=== PATIENT | male | born 1940 | race Caucasian/White ===

== ENCOUNTER 2016-12-09 08:00 | Emergency (ER) | payer MEDICARE, OTHER ==
[~2016-12-09] VITALS: Ht 182.9 cm; Wt 65.0 kg
[~2016-12-09 08:00] MED LIST: ALBU18HF INHALATION; AZIT250T94 PO; BENA20TA48 PO; LEVO112T42 PO; ONDA4TAB14 PO; PRED20TA PO; TRAM50TA2 PO
[2016-12-09 08:06] VITALS: Ht 182.9 cm; Wt 65.0 kg
[2016-12-09] MEDS ORDERED: ACETAMINOPHEN 325 MG TAB PO ONE (08:30)
--- NOTE | 2016-12-09 10:59 | RADRPT ---
PROCEDURE: XR Forearm. CLINICAL INDICATION: Pain. Injury. TECHNIQUE: AP and lateral views of the left forearm were obtained. COMPARISON: No prior studies are available for comparison. FINDINGS: There is normal mineralization and alignment. No fracture or osseous lesion is identified. There is some calcification in the triangulofibrocartilage. The soft tissues are unremarkable. IMPRESSION: 1. No acute fracture or subluxation identified. 2. Calcifications in the triangulofibrocartilage. This may be seen in calcium pyrophosphate deposi tion disease. RPTAT: AACC Physician Vito Date Time Electronically viewed and signed by Physician Vito on 12/09/2016 10:58 /
--- NOTE | 2016-12-09 11:11 | RADRPT ---
AMENDMENT: 12/09/2016 11:18:29 AM Gregorio Lackey M.d PROCEDURE: Left hand 1 view CLINICAL INDICATION: Pain after fall. TECHNIQUE: A single lateral view of the left hand was obtained. COMPARISON: No prior studies are available for comparison. FINDINGS: There is soft tissue swelling over the dorsum of the hand. There are 2 tiny bony ossicles dorsal to the first carpal row. Carpal alignment appears to be maintained. IMPRESSION: 1. Probable avulsion fracture of the triquetrum. RPTAT: AACC Physician Vito Date Time Electronically viewed and signed by Physician Vito on 12/09/2016 11:18 /
--- NOTE | 2016-12-09 11:16 | RADRPT ---
PROCEDURE: XR Wrist. CLINICAL INDICATION: Status post fall, pain. TECHNIQUE: Limited single AP view of the left breast was obtained. COMPARISON: Additional views from the same date. FINDINGS: There is some mild arthritic change in the radiocarpal joint and the first carpal metacarpal joint. There is calcification of the triangular fibrocartilage. There is a lucent appearing lesion in the distal ulna. IMPRESSION: 1. No acute fracture identified on this limited view. 2. Calcifications in the triangulofibrocartilage which can be seen in calcium pyrophosphate deposit ion disease. 3. 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 4. 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 RPTAT: AACC Physician Vito Date Time Electronically viewed and signed by David Lackey Physician on 12/09/2016 11:16 /
--- NOTE | 2016-12-09 12:58 | RADRPT ---
PROCEDURE: XR Chest. CLINICAL INDICATION: Trauma. Chest pain. TECHNIQUE: Single frontal view. COMPARISON: 07/10/2016. FINDINGS: The lungs are clear. The heart size is normal. There is no pleural effusion. There is no pneumothorax. IMPRESSION: 1. Normal chest radiograph. 2. No change from 07/10/2016. RPTAT: QQ .Guillermo Palafox MD, MD Date Time Electronically viewed and signed by .Guillermo Palafox MD, on 12/09/2016 12:58 .R/
[2016-12-09] MEDS ORDERED: ACET500C5 PO (13:26)
--- NOTE | 2016-12-09 13:39 | ERD ---
ER Documentation Chief Complaint Date/Time DATE: 12/09/16 TIME: 13:37 Chief Complaint Complains of a trip and fall today HPI Patient is a 76-year-old male with a past medical history of hypertension and back surgery who presents to the ED with left wrist pain after sustaining a fall. He states that he tripped over the sidewalk and landed on his hand. He denies hitting his head, passing out or losing consciousness. He denies any pain on any other areas of his body. He has not used any medication or applied any ice or heat to the area. He is able to move his wrist but it does hurt. He denies numbness or tingling. He denies fever or chills. ROS All systems reviewed and are negative except as per history of present illness. Medications Home Meds Active Scripts Acetaminophen* (Tylophen*) 500 Mg Capsule, 1 CAP PO Q6H Y for PAIN AND OR ELEVATED TEMP, #20 CAP Prov:ARNEL SCHULER PA-C 12/09/16 Azithromycin* (Zithromax*) 250 Mg Tablet, 250 MG PO .GeorgePACK DIRECTED, #6 TAB TAKE 500 MG (2 TABS) THE FIRST DAY THEN 250 MG (1 TAB) DAYS 2-5 Prov:AGUSTINA YOUNG 07/10/16 Albuterol Sulfate* (Ventolin HFA*) 18 Gm Hfa.aer.ad, 2 PUFF INHALATION Q4H, #1 INHALER Prov:AGUSTINA YOUNG 07/10/16 Prednisone* (Prednisone*) 20 Mg Tab, 40 MG PO DAILY for 4 Days, TAB Prov:AGUSTINA YOUNG 07/10/16 Ondansetron (Ondansetron Odt) 4 Mg Tab.rapdis, 4 MG PO Q6H Y for NAUSEA AND/OR VOMITING, #30 TAB Prov:ELO GUAMAN MD 07/08/16 Tramadol HCl (Tramadol HCl) 50 Mg Tablet, 50 MG PO Q6 Y for PAIN, #20 TAB Prov:ELO GUAMAN MD 07/08/16 Reported Medications Levothyroxine Sodium* (Levoxyl*) 112 Mcg Tablet, 112 MCG PO BEFORE BREAKFAST, # 30 TAB 05/20/16 Benazepril Hcl* (Benazepril Hcl*) 20 Mg Tablet, 20 MG PO DAILY, TAB 01/05/15 Allergies Allergies: Coded Allergies: codeine (Verified Allergy, Unknown, 07/08/16) PMhx/Soc History of Surgery: No Anesthesia Reaction: No Hx Neurological Disorder: No Hx Respiratory Disorders: No Hx Cardiac Disorders: Yes (HTN, HRT MURMUR) Hx Psychiatric Problems: No Hx Miscellaneous Medical Probl: No (HIGH CHOLESTEROL, BACK PAIN, THYROID ) Hx Alcohol Use: No Hx Substance Use: No Hx Tobacco Use: No FmHx Family History: No coronary disease, No diabetes, No other Physical Exam Vitals Vital Signs Date Time Temp Pulse Resp B/P Pulse Ox O2 Delivery O2 Flow Rate FiO2 12/09/16 13:41 97.3 68 20 142/76 98 Room Air 12/09/16 08:06 98.3 68 20 154/87 98 Physical Exam GENERAL: Well-developed, well-nourished male. Appears in no acute distress. HEAD: Normocephalic, atraumatic. EYES: Pupils are equally reactive bilaterally. EOMs grossly intact. No conjunctival erythema. ENT: Moist mucous membranes. No uvula deviation. No kissing tonsils. No exudates. NECK: Supple. No lymphadenopathy or thyromegaly. No meningismus. negative kernig. negative brudinski. LUNG: Clear to auscultation bilaterally. No rhonchi, wheezing, rales or coarse breath sounds. HEART: Regular rate and rhythm. No murmurs, rubs or gallops. ABDOMEN: No scars, ecchymosis or rashes noted. Soft, nontender, and nondistended. Positive bowel sounds in all four quadrants. No rebound tenderness , no guarding. (-) McBurneys point tenderness. No CVA tenderness. BACK: No midline tenderness. Extremities: Equal pulses bilaterally. No peripheral clubbing, cyanosis or edema. No unilateral leg swelling. tednerness to left wrist with mild erythema. no streaking. no stepoffs or deformities. no open wounds or lacerations. radius , ulnar and median nerve intact. no wrist drop. no snuffbox tenderness. NEUROLOGIC: Alert and oriented. Moving all four extremities. 5/5 strength in all extremities. Normal speech. unSteady gait, uses cane. SKIN: Normal color. Warm and dry. No rashes or lesions. Capillary refill < 2 seconds Results 24 hrs Laboratory Tests Test 12/09/16 11:35 Troponin I < 0.012ng/ml Current Medications Medications (Trade) Dose Ordered Sig/Harvey Route PRN Reason Start Time Stop Time Status Last Admin Dose Admin Acetaminophen (Tylenol Tab) 650 mg ONCE ONCE PO 12/09/16 08:30 12/09/16 08:31 DC 12/09/16 08:43 Tramadol HCl (Ultram) 50 mg ONCE ONCE PO 12/09/16 14:00 12/09/16 14:00 DC Procedures/MDM ER COURSE: I kept the patient and/or family informed of laboratory and diagnostic imaging results throughout the emergency room course. IMAGING STUDIES [place] [id number] Radiology Main Line: [phone] DIAGNOSTIC IMAGING REPORT Patient: JAKE CEBALLOS : 1940 Age: 76 Sex: M MR #: [id number] DOS: 12/09/16 0824 Ordering MD: ARNEL SCHULER PA-C Location: [facility] Room/Bed: AMENDMENT: 12/09/2016 11:18:29 AM Gregorio Lackey M.d PROCEDURE: Left hand 1 view CLINICAL INDICATION: Pain after fall. TECHNIQUE: A single lateral view of the left hand was obtained. COMPARISON: No prior studies are available for comparison. FINDINGS: There is soft tissue swelling over the dorsum of the hand. There are 2 tiny bony ossicles dorsal to the first carpal row. Carpal alignment appears to be maintained. IMPRESSION: 1. Probable avulsion fracture of the triquetrum. RPTAT: AACC Physician Vito Date Time Electronically viewed and signed by Physician Vito on 12/09/2016 11: 18 JH/ CC: ARNEL SCHULER PA-C MEDICATIONS Tylenol. Tolerated well with no adverse reaction. PROCEDURES Splint Assessment: Neurovascularly intact post splint placement with good fit. MEDICAL DECISION MAKING: This is a 76-year-old male who presents with left wrist pain vital signs were reviewed. Patient is afebrile. Patient is not hypoxic. Patient is not toxic or ill-appearing. His x-rays of by radiologist shows a probable avulsion fracture of the triquetrum. I gave patient results and he stated that he started to have chest pain in the waiting room with shortness of breath and palpitations. I consulted with Dr. yuen regarding this patient. A chest x-ray, EKG and troponin was ordered. EKG performed, read by Dr. yuen 58]bpm, normal sinus rhythm, normal axis, no acute ST segment. changes, no T wave inversion. Low suspicion for ACS, PE, AAA, dissection, DVT, heart failure. I have low suspicion for cardiac emergency. Low suspicion for pneumonia, PE, pneumothorax , ACS, epiglottitis, obstruction, TB, pertussis, meningitis, sepsis. Low suspicion for dislocation, fracture, septic joint, compartment syndrome, osteomyelitis, cellulitis, avascular necrosis, neurological injury, vascular injury, tendon laceration. DISCHARGE: At this time, patient is stable for discharge and outpatient management with no new complaints during the ER course. Patient was sent home with Tylenol and to follow-up with orthopedics.. Patient will be discharged home with instructions to recheck for new or worsening symptoms such as fever, nausea, weakness, LOC and to follow up with primary care in the next 1-2 days. Patient was advised to return to the ER for any new or worsening symptoms. Plan was discussed and patient and/or family understands and agrees. Home instructions were given. Departure Diagnosis: Primary Impression: Wrist injury Encounter type: initial encounter Laterality: left Qualified Code: S69.92XA - Wrist injury, left, initial encounter Condition: Stable Patient Instructions: Wrist Sprain Referrals: [facility] Urgent Care 7 a.m.- 11 p.m. Every Day of the Week NO APPOINTMENT OR AUTHORIZATION NEEDED [facility] Hours: Mon-Fri 9:00 AM - 5:00 PM Additional Instructions: Call your primary care doctor TOMORROW for an appointment during the next 1-2 days.See the doctor sooner or return here if your condition worsens before your appointment time. ARNEL SCHULER PA-C December 09, 2016 13:39
[2016-12-09 13:41] VITALS: BP 142/76; PULSE 68; RESP 20; TEMP 97.3
[2016-12-09] MEDS ORDERED: traMADol 50 MG TAB PO ONE (14:00)
== END 2016-12-09 13:40 | disposition home or self-care (01) ==
LOC: FTE 08:00
DX: S69.92XA Unspecified injury of left wrist, hand and finger(s), initial encounter (principal); I10 Essential (primary) hypertension; W01.0XXA Fall on same level from slipping, tripping and stumbling without subsequent striking against object, initial encounter; Y92.480 Sidewalk as the place of occurrence of the external cause
CPT/HCPCS: 71010; 73090; 84484; 93005

== ENCOUNTER 2017-02-14 11:44 | Inpatient (IN) | payer MEDICARE, OTHER ==
[2017-02-14] VITALS (31 sets, daily range): BP systolic 75–100; BP diastolic 64–84; PULSE 57–70; RESP 16–25; TEMP 89.7; BMI 21.5
[~2017-02-14] VITALS: Ht 180.3 cm; Wt 82.0 kg
[~2017-02-14 11:44] MED LIST changes: +ACET500C5 PO; +AMIODARONE 150 MG INJ ONE; +AMIODARONE 900 MG INJ ONE; +EPINEPHrine 0.1 MG/ML SYG ONE; +MAGNESIUM SULFATE 1 GM/100 ML D5W IVPB ONE; +NA BICARBONATE 8.4% 50 ML SYG ONE
[2017-02-14] MEDS ORDERED: NALOXONE 2 MG SYG ONE (11:45)
[2017-02-14] MEDS ORDERED: CEFEPIME 2GM/50 ML (PMX) 50 ML IVPB STA (12:03)
[2017-02-14] MEDS ORDERED: VECURONIUM 100 MG in DEXTROSE 5% 100 ML IV ONE (12:03)
[2017-02-14] MEDS ORDERED: SODIUM CHLORIDE 0.9% 500 ML BAG IV* STA (12:03)
[2017-02-14] MEDS ORDERED: SODIUM CHLORIDE 0.9% 1L BAG IV* STA (12:03)
[2017-02-14] MEDS ORDERED: BENA20TA48 PO (12:14)
[2017-02-14] MEDS ORDERED: GABA100C14 PO (12:15)
[2017-02-14] MEDS ORDERED: SYN112 PO (12:15)
[2017-02-14] MEDS ORDERED: ALBU8.5H3 INH (12:16)
[2017-02-14] MEDS ORDERED: AMIODARONE 900MG/D5W DRIP 500 ML IV STA ×2 (12:22→13:50)
[2017-02-14] MEDS ORDERED: MIDAZOLAM (DRIP) 50 mg/50 mL 50 ML IV SCH (12:30)
[2017-02-14] MEDS ORDERED: FENTAnyl 50 MCG/ML VIAL IV PRN (12:30)
[2017-02-14] MEDS ORDERED: VANCOMYCIN 1 GM (PMX) 250 ML IVPB ONE (12:30)
[2017-02-14 12:32] LABS: ADD SCAN DIFF NO
[2017-02-14 12:35] LABS: ABNORMAL IP MESSAGE 1; HEMATOCRIT 30.4 % (42.0-52.0); HEMOGLOBIN 9.8 g/dl (14.0-18.0); MEAN CORPUSCULAR HGB CONC 32.2 g/dl (32.0-37.0); MEAN CORPUSCULAR VOLUME 105.6 fl (82.0-101.0); MEAN PLATELET VOLUME 10.4 fl (7.4-10.4); PLATELET COUNT 82 10^3/UL (140-415); RED BLOOD COUNT 2.88 10^6/ul (4.70-6.10); RED CELL DISTRIBUTION WIDTH 14.1 % (11.5-14.5); WHITE BLOOD COUNT 4.4 10^3/ul (4.8-10.8)
--- NOTE | 2017-02-14 12:42 | RADRPT ---
PROCEDURE: XR Chest. CLINICAL INDICATION: Status post intubation TECHNIQUE: Single portable view of the chest was obtained COMPARISON: 12/09/16 FINDINGS: There is a new endotracheal tube 8.2 cm above the agustín. There is mild cardiomegaly. There are bilateral upper lobe infiltrates. There is no pleural effusion. RPTAT: AA IMPRESSION: New endotracheal tube in appropriate position. Small left-sided pneumothorax. Bilateral upper lobe infiltrates. A call report was made and the findings discussed with Willis Hartman at 02/14/2017 12:40:18 PM . .Yaya Altamirano MD, MD Date Time Electronically viewed and signed by .Yaya Altamirano MD, MD on 02/14/2017 12:42 .S/
[2017-02-14 12:53] LABS: AADO2 Arterial 610.8 mmHg (7.0-24.0); Arterial Base Excess -14.9 mmol/L (-3.0-3); Arterial COHb 0.4 % (0.0-3.0); Arterial Fraction of Oxyhgb 84.4 % (93.0-99.0); Arterial HCO3 13.1 mmol/L (22.0-26.0); Arterial MetHb 0.3 % (0.0-1.5); Arterial Total Hemglobin 11.6 g/dl (12.0-18.0); MODE VENT - AC
[2017-02-14 12:55] LABS: ALBUMIN 2.9 g/dl (3.3-4.9); ALBUMIN/GLOBULIN RATIO 1.45; CALCIUM 9.2 mg/dl (8.4-10.2); CREATININE 1.25 mg/dl (0.61-1.24); MAGNESIUM 2.5 mg/dl (1.7-2.5); PHOSPHORUS 7.4 mg/dl (2.5-4.9); POTASSIUM 3.9 mmol/L (3.5-5.1); TOTAL PROTEIN 4.9 g/dl (6.1-8.1)
[2017-02-14 13:03] LABS: INR 1.37; PROTIME 16.9 Sec (12.2-14.2); PT RATIO 1.3
[2017-02-14 13:04] LABS: PARTIAL THROMBOPLASTIN TIME 42.7 Sec (25.0-35.0)
[2017-02-14 13:16] LABS: TROPONIN-I 0.143 ng/ml (0.00-0.12)
[2017-02-14 13:25] LABS: BASOPHIL # 0.1 10^3/ul (0.0-0.1); EOSINOPHILS # 0.1 10^3/ul (0.0-0.5); MONOCYTE # 0.3 10^3/ul (0.3-0.9); NEUTROPHIL # 0.6 10^3/ul (1.6-7.5)
--- NOTE | 2017-02-14 13:57 | RADRPT ---
PROCEDURE: XR Chest. CLINICAL INDICATION: 76-year-old male, status post left-sided thoracostomy tube placement. TECHNIQUE: Single frontal view of the chest was obtained. COMPARISON: Chest x-ray 02/14/2017 at 12:22 p.m. FINDINGS: There is subcutaneous emphysema along the left chest wall following placement of 3 thoracostomy tube s. There are degenerative osteophytes in the thoracic spine. Endotracheal tube is well positioned near T2-T3. The heart is enlarged. The cardiomediastinal silhouette and hilar structures are kamla l. The pulmonary vasculature is equilibrated. There is a left-sided aorta. There are bilateral jose hilar infiltrates extending toward the periphery of the lungs. There is a small right pleural effus ion. IMPRESSION: 1. Cardiomegaly with bilateral pulmonary edema which has worsened when compared to the 02/14/2017 at 12:22 p.m. these findings may be the result of CHF. 2. Cardiomegaly with a small right pleural effusion. 3. 3 thoracostomy tubes are in place with a persistent, stable 10-15% left apical pneumothorax with subcutaneous emphysema noted along the left lateral chest wall and in the left axilla. 4. Spondylosis of the thoracic spine. 5. Satisfactory positioning of an endotracheal tube near T3-4. 6. The stomach is markedly distended with air. Consider placement of an NG tube. RPTAT:AAJJ Physician Tristan Date Time Electronically viewed and signed by Physician Tristan on 02/14/2017 13:57 HENOK/
--- NOTE | 2017-02-14 14:25 | ERA ---
ER Documentation Chief Complaint Date/Time DATE: 02/14/17 TIME: 14:16 Chief Complaint ARRIVED IN [facility] FROM FIELD S/P FULL AREST. NO TRAUMA HPI 76-year-old male brought in for cardiac arrest. Unwitnessed arrest, PA in the field. 2 rounds of epinephrine per EMS. The patient was not intubated. Remainder of HPI is very limited. There is no family available. The patient is critical. ROS Cardiac arrest, critical patient Medications Home Meds Reported Medications Albuterol Sulfate* (Proair HFA*) 8.5 Gm Hfa.aer.ad, 2 PUFF INH Q4H Y for WHEEZING AND SOB, #1 INHALER 02/14/17 Gabapentin* (Gabapentin*) 100 Mg Capsule, 100 MG PO TID, #90 CAP 02/14/17 Levothyroxine Sodium* (Levothyroxine Sodium*) 112 Mcg Tablet, 112 MCG PO BEFORE BREAKFAST, #30 TAB 02/14/17 Benazepril Hcl* (Benazepril Hcl*) 20 Mg Tablet, 20 MG PO DAILY, #30 TAB 02/14/17 Discontinued Reported Medications Levothyroxine Sodium* (Levoxyl*) 112 Mcg Tablet, 112 MCG PO BEFORE BREAKFAST, # 30 TAB 05/20/16 Benazepril Hcl* (Benazepril Hcl*) 20 Mg Tablet, 20 MG PO DAILY, TAB 01/05/15 Discontinued Scripts Acetaminophen* (Tylophen*) 500 Mg Capsule, 1 CAP PO Q6H Y for PAIN AND OR ELEVATED TEMP, #20 CAP Prov:ARNEL SCHULER PADeny 12/09/16 Azithromycin* (Zithromax*) 250 Mg Tablet, 250 MG PO .ALEXUS DIRECTED, #6 TAB TAKE 500 MG (2 TABS) THE FIRST DAY THEN 250 MG (1 TAB) DAYS 2-5 Prov:AGUSTINA YOUNG 07/10/16 Albuterol Sulfate* (Ventolin HFA*) 18 Gm Hfa.aer.ad, 2 PUFF INHALATION Q4H, #1 INHALER Prov:AGUSTINA YOUNG 07/10/16 Prednisone* (Prednisone*) 20 Mg Tab, 40 MG PO DAILY for 4 Days, TAB Prov:AGUSTINA YOUNG 07/10/16 Ondansetron (Ondansetron Odt) 4 Mg Tab.rapdis, 4 MG PO Q6H Y for NAUSEA AND/OR VOMITING, #30 TAB Prov:ELO GUAMAN MD 07/08/16 Tramadol HCl (Tramadol HCl) 50 Mg Tablet, 50 MG PO Q6 Y for PAIN, #20 TAB Prov:ELO GUAMAN MD 07/08/16 Allergies Allergies: Coded Allergies: codeine (Verified Allergy, Unknown, 02/14/17) PMhx/Soc History of Surgery: No Anesthesia Reaction: No Hx Neurological Disorder: No Hx Respiratory Disorders: No Hx Cardiac Disorders: Yes (HTN, HRT MURMUR) Hx Psychiatric Problems: No Hx Miscellaneous Medical Probl: No (HIGH CHOLESTEROL, BACK PAIN, THYROID ) Hx Alcohol Use: No (UTD) Hx Substance Use: No (UTD) Hx Tobacco Use: No (UTD) Smoking Status: Unknown if ever smoked FmHx Cardiac arrest, critical patient Physical Exam Vitals Vital Signs Date Time Temp Pulse Resp B/P Pulse Ox O2 Delivery O2 Flow Rate FiO2 02/14/17 15:45 90.2 66 16 91/76 90 Mechanical Ventilator 02/14/17 15:25 90.2 66 16 91/76 90 Mechanical Ventilator 02/14/17 15:00 92.8 71 16 91/80 98 Mechanical Ventilator 02/14/17 14:45 93.0 72 16 99/74 98 Mechanical Ventilator 02/14/17 14:30 93.0 72 16 99/74 02/14/17 14:15 97.0 75 16 110/81 98 Mechanical Ventilator 02/14/17 12:55 97.8 77 16 108/74 98 Mechanical Ventilator 02/14/17 12:40 97.8 74 16 108/76 98 Mechanical Ventilator 02/14/17 12:35 97.8 88 16 110/78 98 Mechanical Ventilator 02/14/17 12:20 97.8 68 16 118/74 98 Mechanical Ventilator 02/14/17 12:05 97.8 71 16 120/79 98 Mechanical Ventilator 02/14/17 11:45 101 22 92 100 Physical Exam General: Unresponsive Head: Normocephalic, atraumatic Eyes: Fixed and dilated pupils ENT: Moist mucous membranes Neck: Supple, no lymphadenopathy Respiratory: No spontaneous respiratory activity Cardiovascular: No spontaneous cardiac activity Abdominal: Soft, non-protuberant, no pulsatile mass : Deferred MSK: No spontaneous motor activity Neurologic: No spontaneous neurologic activity Skin: No evidence of trauma Result Diagram: 02/14/17 1210 02/14/17 1210 Results 24 hrs Laboratory Tests Test 02/14/17 12:03 02/14/17 12:10 02/14/17 13:56 02/14/17 14:35 Blood Gas Specimen Source Blood arterial Arterial Blood Date Drawn 02/14/2017 12:45:43 PM Arterial Blood pH (Temp corrected) 7.149 Arterial Blood pCO2 (Temp correct) 38.7mmhg Arterial Blood pO2 (Temp corrected) 63.5mmHG Arterial Blood HCO3 13.1mmol/L Arterial Blood Base Excess -14.9mmol/L Arterial Blood Oxygen Saturation 85.0mmHG Chris Test N/A Arterial Blood Gas Puncture Site Right Brachial Arterial Blood Carboxyhemoglobin 0.4% Arterial Blood Methemoglobin 0.3% Blood Gas A-a O2 Differential 610.8mmHg Oxyhemoglobin Percent 84.4% Total Hemoglobin 11.6g/dl Blood Gas Temperature 37.0C Blood Gas Respiration Rate 16.0 Blood Gas Actual Respiration Rate 20 Blood Gas Modality VENT - AC FiO2 100.0% Blood Gas Inspiratory Time 0.90 Blood Gas Tidal Volume 450.0mL Blood Gas Low PEEP Setting 5.0cmH2O Blood Gas Critical Value Read Back MD FERNY Blood Gas Notified Whom [place] Blood Gas Notified Time 02/14/2017 12:53:06 PM White Blood Count 4.410^3/ul Red Blood Count 2.8810^6/ul Hemoglobin 9.8g/dl Hematocrit 30.4% Mean Corpuscular Volume 105.6fl Mean Corpuscular Hemoglobin 34.0pg Mean Corpuscular Hemoglobin Concent 32.2g/dl Red Cell Distribution Width 14.1% Platelet Count 8210^3/UL Mean Platelet Volume 10.4fl Neutrophils % 14.0% Band Neutrophils % 6.0% Lymphocytes % 69.0% Monocytes % 6.0% Eosinophils % 3.0% Basophils % 2.0% Neutrophils # 0.610^3/ul Lymphocytes # 3.010^3/ul Monocytes # 0.310^3/ul Eosinophils # 0.110^3/ul Basophils # 0.110^3/ul Prothrombin Time 16.9Sec Prothrombin Time Ratio 1.3 INR International Normalized Ratio 1.37 Activated Partial Thromboplast Time 42.7Sec Sodium Level 131mmol/L Potassium Level 3.9mmol/L Chloride Level 108mmol/L Carbon Dioxide Level 15mmol/L Anion Gap 12 Blood Urea Nitrogen 28mg/dl Creatinine 1.25mg/dl Glucose Level 241mg/dl Lactic Acid Level 10.3mmol/L 5.6mmol/L Calcium Level 9.2mg/dl Phosphorus Level 7.4mg/dl Magnesium Level 2.5mg/dl Total Bilirubin 0.0mg/dl Direct Bilirubin 0.00mg/dl Indirect Bilirubin 0.0mg/dl Aspartate Amino Transf (AST/SGOT) 495IU/L Alanine Aminotransferase (ALT/SGPT) 418IU/L Alkaline Phosphatase 51IU/L Troponin I 0.143ng/ml Total Protein 4.9g/dl Albumin 2.9g/dl Globulin 2.00g/dl Albumin/Globulin Ratio 1.45 Lipase 131U/L Bedside Glucose 289mg/dL Urine Color SASKIA Urine Clarity TURBID Urine pH 9.0 Urine Specific [place] 1.009 Urine Ketones NEGATIVEmg/dL Urine Nitrite POSITIVEmg/dL Urine Bilirubin NEGATIVEmg/dL Urine Urobilinogen NEGATIVEmg/dL Urine Leukocyte Esterase 2+Tanner/ul Urine Microscopic RBC 6/HPF Urine Microscopic WBC 26/HPF Urine Squamous Epithelial Cells FEW/HPF Urine Amorphous Crystals FEW/HPF Urine Bacteria FEW/HPF Urine Hyaline Casts FEW/HPF Urine Mucus FEW/HPF Urine Hemoglobin 2+mg/dL Urine Glucose 3+mg/dL Urine Total Protein 2+mg/dl Current Medications Medications (Trade) Dose Ordered Sig/[place] PRN Reason Start Time Stop Time Status Last Admin Dose Admin Sodium Chloride 2170 ml 2,170 ml BOLUS OVER 2 HOURS STAT IV* 02/14/17 12:03 02/14/17 12:07 DC 02/14/17 12:03 Cefepime HCl 50 ml @ 100 mls/hr ONCE STAT IVPB 02/14/17 12:03 02/14/17 12:32 DC 02/14/17 13:52 Vancomycin HCl (Vancocin) 250 ml @ 125 mls/hr ONCE ONCE IVPB 02/14/17 12:30 02/14/17 14:29 DC Sodium Chloride (NS) 500 ml ONCE STAT IV* 02/14/17 12:03 02/14/17 12:07 DC 02/14/17 12:03 Fentanyl 25 mcg 25 mcg Q10M PRN IV SEDATION 02/14/17 12:30 Midazolam HCl 50 ml @ 2 mls/hr ONCE IV 02/14/17 12:30 02/14/17 13:52 Vecuronium [place] 100 mg/ Dextrose 100 ml @ 0 mls/hr Q0M ONCE IV 02/14/17 12:03 02/14/17 12:07 DC 02/14/17 12:03 Amiodarone HCl 500 ml @ 0 mls/hr ONCE STAT IV 02/14/17 12:22 02/14/17 12:25 DC Amiodarone HCl (Cordarone 900mg/ D5W Drip) 500 ml @ 0 mls/hr ONCE STAT IV 02/14/17 13:50 02/14/17 13:51 DC 02/14/17 15:21 Naloxone HCl 2 mg 2 mg STK-MED ONCE .ROUTE 02/14/17 11:45 02/14/17 14:54 DC Insulin Human Regular/Sodium Chloride (Novolin-R/NS) 100 ml @ 0 mls/hr ONCE STAT IV 02/14/17 15:31 02/14/17 15:32 DC Procedures/MDM EKG, MONITORS, & DIAGNOSTIC IMAGING: EKG: I reviewed and interpreted a 12-lead EKG. Rhythm: Junctional, irregular, wide complex Ectopy: None Intervals: Wide-complex ST segments: Subtle ST elevation in lead aVR, no reciprocal changes T waves: No contiguous inversions Chest x-ray #1 Chest x-ray: I reviewed and interpreted a 1 view of the chest Mediastinum: No enlargement Cardiac silhouette: No cardiomegaly Airspace: Left-sided pneumothorax, ET tube in good position, interstitial process bilaterally Bones: No evidence of fracture Chest x-ray #2 Chest x-ray: I reviewed and interpreted a 1 view of the chest Mediastinum: No enlargement Cardiac silhouette: No cardiomegaly Airspace: Persistent left-sided pneumothorax, worsening interstitial process, chest tube in good position Bones: No evidence of fracture CT brain: IMPRESSION: 1. No intracranial hemorrhage, mass effect or midline shift. 2. Mild generalized atrophy. Mild microangiopathic ischemic change. 3. Stable appearance of the chronic right MCA distribution infarct. 4. Intracranial atherosclerosis. 5. NG tube coils in the nasopharynx. RPTAT: BB CT chest: IMPRESSION: 1. Extensive dense consolidations involving the near and prior lower lobes and posterior aspect of the upper lobes concerning for aspiration/pneumonia. 2. Patchy diffuse ground-glass opacities in the aerated upper lungs which could represent infection, pulmonary edema or pulmonary hemorrhage. 3. Multiple mildly displaced left-sided anterolateral rib fractures 2nd through 6th ribs. 4. Trace left apical pneumothorax. Surgical chest tube extends along the major fissure with tip directed posteriorly. The most superior aspect of the chest tube might be intraparenchymal. No significant pleural effusion is identified; however hemothorax adjacent to dense lung consolidation is difficult to exclude. Correlate with chest tube output. 5. Mild stranding and soft tissue density in the anterior mediastinum which could represent a small mediastinal hematoma in the setting of trauma. 6. Small perihepatic fluid. RPTAT: BB PROCEDURES: Intubation Note: Indication: Airway protection Consent: This was an emergent situation, implied consent was observed RSI Medications: Not required Tube size: 7.5 Secured at: 24 at the lip Procedure: Endotracheal intubation was performed. The patient was preoxygenated with supplemental oxygen, the room was set up with emergent airway equipment including [id number], suction, adjunct airways. Direct visualization of the cords was performed with direct laryngoscopy using a 4.0 Mac blade, insertion of the endotracheal tube through the cords was visualized by the chip crusher operator. Bilateral breath sounds were auscultated, color change was observed. The tube was then secured in a postintubation chest x-ray was ordered. The patient tolerated the procedure well there were no complications. Central Line Note: Consent: Critical patient Indication: Critically ill patient requiring specialized vascular access for fluid or pressor management Location: Right femoral line Procedure: Sterile procedure was observed throughout insertion of the central line. The insertion site was prepped with sterile solution. Ultrasound-guided identification of the vein was performed. Insertion of a needle into the vein was obtained with return of dark, nonpulsatile blood. The wire was then threaded through the needle without complication. The wire was then identified within the vein using ultrasound. A small skin incision was made, the needle was removed intact, dilation of the vein was performed and insertion of a triple lumen catheter was completed. The catheter was then sutured to the skin. All 3 ports dwight back and flushed without difficulty. A sterile dressing was applied. The patient tolerated the procedure well there were no complications. Emergency Bedside Ultrasound: The patient was verbally consented prior to procedure and understands the risks , benefits, and alternatives. The patient is agreeable to procedure and has given verbal consent. Indication: Central line Probe Type: Linear Findings: Dynamic ultrasound utilizing compressive technique with both linear and horizontal views, additional images showing wire within the venous system were obtained. Chest Tube Placement by me: Patient consented, sterilely draped, full prep, gown, glove, mask, time out performed. Location: Mid-Anterior Axillary Line, approximate 5th intercostal, left Device: 29 wallisian chest tube Technique: Vertical incision, blunt dissection above the superior rib border , tactile confirmation Results: Chest tube fogging Secured with suture and taping. No complications. Attached to waterseal. Emergency Bedside Ultrasound: Indication: Cardiac arrest Probe Type: Cardiac probe Findings: Limited cardiac contractility, quivering of the valves, no effusion LAB INTERPRETATION: Lactic acidosis, acute renal insufficiency, troponin elevation MEDICAL DECISION MAKING: The patient presents status post cardiac arrest. Please see nursing documentation for full a rest course. Unclear inciting event. ER COURSE: Upon arrival the patient required intubation. ACLS was directed by myself. The patient had multiple rounds of medications including epinephrine, calcium, bicarb, magnesium, amiodarone, Narcan. After excessive attempts at resuscitation the patient finally had return of spontaneous circulation with agonal respirations. The patient was placed on the ventilator. His laboratory testing suggests significant lactic acidosis with prolonged downtime. The patient also received 5 defibrillations at 200 J. I discussed the case with on-call business risk consultant Dr. Fagan. We reviewed the case as well as a prolonged downtime, V. fib, PA cardiac arrest. Given that the patient had multiple unfavorable factors including age, duration of downtime, no bystander CPR patient is not an excellent candidate for Lay Out And Detail Drafter activation. Dr. Angelo does not recommend Lay Out And Detail Drafter activation at this time. I believe it is reasonable given the patient's unfavorable outcome and likely mortality. The patient has evidence of a pneumothorax likely secondary to chest compressions. No evidence of tension physiology. A left-sided chest tube was placed. The patient does not have resolution of pneumothorax however chest tube appears to be in good position, no water leak, continue to monitor. Saturations hovering in the 85% range which is consistent with the patient's pulmonary edema versus pulmonary contusion secondary to chest compressions. No evidence of infection currently, empiric antibiotic provided. 30 cc/kg of saline provided. CT brain and CT chest ordered, pending at this time. CT chest as above, Chest tube pulled back 1 cm given "possible intraparenchymal placement" however, there is good movement of fluid with breathing in the tube making this unlikely. Hypothermia protocol initiated. There is no family available, a program schedule clerk who states that he knows the patient has come to the emergency room. He states that the patient is a transient. No further information is provided. DISPOSITION PLAN: ICU CONSULTATION: Accepting care team and consultations: I discussed the current laboratory data, diagnostic imaging and emergency care provided. Admitting team: Dr. Luna Admitting team indication: Insurance directed Critical Care Note: Total time: 58 minutes Indication/Organ System Threat: Cardiac arrest with return of spontaneous circulation I spent the above amount of critical care time with the patient, not including billable procedures. This included chart review, consultations, repeat bedside evaluations, and titration of appropriate medications to prevent cardiopulmonary or respiratory collapse. Departure Diagnosis: Primary Impression: Cardiac arrest Additional Impressions: Signs of return of spontaneous circulation Lactic acidosis Non-ST elevation myocardial infarction (NSTEMI) Acute renal insufficiency Condition: Critical SERGE MATT MD Feb 14, 2017 14:25
[2017-02-14 15:22] LABS: ADD UMIC YES; UR AMORPHOUS CRYSTAL FEW /HPF (NONE SEEN); UR ASCORBIC ACID NEGATIVE (NEGATIVE); UR BACTERIA FEW /HPF (NONE SEEN); UR BILIRUBIN (Dip) NEGATIVE (NEGATIVE); UR BLOOD (Dip) 2+ mg/dL (NEGATIVE); UR CLARITY TURBID (CLEAR); UR COLOR AMBER (YELLOW); UR GLUCOSE (Dip) 3+ mg/dL (NEGATIVE); UR KETONES (Dip) NEGATIVE (NEGATIVE); UR LEUKOCYTE ESTERASE (Dip) 2+ Leu/ul (NEGATIVE); UR MUCUS FEW /HPF (NONE SEEN); UR NITRITE (Dip) POSITIVE (NEGATIVE); UR RBC 6 /HPF (0-5); UR SPECIFIC GRAVITY (Dip) 1.009 (1.003-1.030); UR SQUAMOUS EPITHELIAL CELL FEW /HPF (FEW); UR TOTAL PROTEIN (Dip) 2+ mg/dl (NEGATIVE); UR UROBILINOGEN (Dip) NEGATIVE (NEGATIVE)
--- NOTE | 2017-02-14 15:28 | RADRPT ---
PROCEDURE: CT Brain without contrast. CLINICAL INDICATION: Hypothermia. Altered mental status. TECHNIQUE: A CT of the brain was performed on a multidetector CT scanner utilizing axial sections from the skull base through the vertex without contrast. Images were reviewed on a high-resolution [employer] workstation. Exam CTDI = 43.27 mGy and the DLP = 720.23 mGy-cm. One or more of the following dose reduction techniques were used: Automated exposure control Adjustment of the mA and/or kV according to patient size. Use of iterative reconstruction technique. COMPARISON: CT head 07/08/2016 FINDINGS: Mild diffuse cerebral and cerebellar atrophy is present. There is proportionate dilatation of the v entricular system and sulci in a symmetric fashion. There is prominence of the extraaxial spaces sec ondary to atrophy. There is no evidence of intracranial hemorrhage, mass effect or midline shift. Th ere is chronic infarct in the right anterior distribution within the right temporal lobe involving t he posterior insular cortex , external capsule and inferior right parietal lobe. No abnormal intra-a xial or extra-axial fluid collections are seen. The density of the brain is normal and the zaidi/whi te matter differentiation is well preserved. Mild patchy diffuse deep white matter microangiopathic ischemic change is seen. The osseous structures are unremarkable. Paranasal sinuses are clear. Vascular calcifications are identified. There is an NG tube coiling in the nasopharynx. IMPRESSION: 1. No intracranial hemorrhage, mass effect or midline shift. 2. Mild generalized atrophy. Mild microangiopathic ischemic change. 3. Stable appearance of the chronic right MCA distribution infarct. 4. Intracranial atherosclerosis. 5. NG tube coils in the nasopharynx. RPTAT: BB .Dilma Maldonado MD, Date Time Electronically viewed and signed by .Dilma Maldonado MD, on 02/14/2017 15:28 .O/
[2017-02-14] MEDS ORDERED: INSULIN HUMAN REGULAR 100 UNIT in SOD CHLORIDE 0.9% 99 ML IV STA (15:31)
--- NOTE | 2017-02-14 15:42 | RADRPT ---
PROCEDURE: CT Chest without contrast. CLINICAL INDICATION: Hypoxia, hypothermia. TECHNIQUE: CT scan of the chest without contrast was performed on a multidetector high-resolution CT scanner. Coronal and sagittal reformatted images were obtained from the axial source images. The total exam CTDI equals 9.36 mGy and the total exam DLP equals 391.58 mGy-cm. One or more of the following dose reduction techniques were used: Automated exposure control. Adjustment of the mA and/or kV according to patient size. Use of iterative reconstruction technique. COMPARISON: Chest x-ray 02/14/2017 FINDINGS: ET tube is in satisfactory position terminating approximately 4.3 cm above the agustín. Dense consol idations are seen involving the near-complete bilateral lower lobes and posterior aspects of bilater al upper lobes. Diffuse ground-glass opacities are identified in the residual aerated upper lungs. There is minimal left apical pneumothorax. Surgical chest tube is in place along the fissure with ti p directed posteriorly. There are multiple displaced anterior and lateral left-sided rib fractures i nvolving the second through 6th ribs. There is a nondisplaced posterior fracture of the left first r ib. There is mild subcutaneous emphysema along the anterior and lateral left lateral chest wall. The lungs are clear. No focal opacification, effusion, pneumothorax, edema, or nodules are seen. There is no pulmonary infiltrate. No mass lesion to suggest neoplasm is identified. The central tr acheobronchial tree is clear. The mediastinum is unremarkable without evidence for mass or lymphadenopathy. There is mild ectasia of the ascending aorta measures up to 4.3 cm. There is mild soft tissue density in the anterior med iastinum. Aortic vascular calcifications and coronary artery calcifications are present. The heart size is normal without evidence for pericardial thickening or effusion. The axillary regions, subpectoral regions, and supraclavicular regions are all unremarkable. Imagin g obtained through the upper abdomen reveals small perihepatic fluid. The surrounding osseous struct ures are remarkable for degenerative spondylosis of the spine. No osteolytic or osteoblastic lesion is detected. IMPRESSION: 1. Extensive dense consolidations involving the near and prior lower lobes and posterior aspect of the upper lobes concerning for aspiration/pneumonia. 2. Patchy diffuse ground-glass opacities in the aerated upper lungs which could represent infection , pulmonary edema or pulmonary hemorrhage. 3. Multiple mildly displaced left-sided anterolateral rib fractures 2nd through 6th ribs. 4. Trace left apical pneumothorax. Surgical chest tube extends along the major fissure with tip di rected posteriorly. The most superior aspect of the chest tube might be intraparenchymal. No signi ficant pleural effusion is identified; however hemothorax adjacent to dense lung consolidation is di fficult to exclude. Correlate with chest tube output. 5. Mild stranding and soft tissue density in the anterior mediastinum which could represent a small mediastinal hematoma in the setting of trauma. 6. Small perihepatic fluid. RPTAT: BB .Dilma Maldonado MD, Date Time Electronically viewed and signed by .Dilma Maldonado MD, on 02/14/2017 15:42 .O/
[2017-02-14] MEDS ORDERED: SOD CHLORIDE 0.9% 1,000 ML IV SCH (15:57)
[2017-02-14] MEDS ORDERED: NACL 0.9% 3 ML SYG IV SCH (16:00)
[2017-02-14] MEDS ORDERED: ONDANSETRON 4 MG INJ IV PRN (16:00)
--- NOTE | 2017-02-14 16:33 | HP ---
Date/Time of Note Date/Time of Note DATE: 02/14/17 TIME: 16:19 Assessment/Plan VTE Prophylaxis VTE Prophylaxis Intervention: SCD's Assessment/Plan Chief Complaint/Hosp Course 1. Cardiac arrest secondary to V-fib status post ACLS with defibrillation and return of circulation Patient is status post intubation in the ER Chest tube placed for pneumothorax caused by repeated chest compressions Cardiology consultation, patient does not meet criteria for emergent cardiac catheterization per sinter press operator on-call 2. Acute respiratory distress secondary to cardiac arrest Continue vent management Pulmonology consultation 3. 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 Pancytopenia cause unknown at this time Check for HIV 6. Acute kidney disease secondary to cardiac arrest IV fluid 7. Hyperglycemia-possibly reactive Check an A1c 8. Hyponatremia likely secondary to dehydration IV fluids with normal saline Prophylaxis: SCDs Problems: HPI/ROS Admit Date/Time Admit Date/Time February 14, 2017 Hx of Present Illness Patient is a 76-year-old male with history of homelessness, back pain, hypertension and dyslipidemia. Patient was found by paramedics on the ground next to a park bench, patient was reportedly unresponsive and was in PEA but on arrival in the ED patient was in V. fib. ACLS was performed and patient ultimately had return of circulation after several attempts of defibrillation. Patient did suffer a pneumothorax and had a chest tube placed, patient was also intubated in the ER. Hypothermia protocol was initiated, on-call maintenance and repair worker was spoken to and patient did not meet criteria for emergent cardiac catheterization. Patient is currently unresponsive at this time and unable to provide any history. ROS Subjective hx not possible: pt non-verbal, pt critical status PMH/Family/Social Past Medical History Back pain, dyslipidemia and hypertension Past Surgical History Unknown Family History Significant Family History: other (Unknown) Social History Homeless otherwise unknown Smoking Status: Unknown if ever smoked Exam/Review of Systems Vital Signs Vitals Vital Signs Date Time Temp Pulse Resp B/P Pulse Ox O2 Delivery O2 Flow Rate FiO2 02/14/17 15:45 90.2 66 16 91/76 90 Mechanical Ventilator 02/14/17 15:18 100 Exam Constitutional: non-verbal, No alert Head: normocephalic Respiratory: clear to auscultation, other (Chest tube in place) Cardiovascular: regular rate and rhythm Gastrointestinal: soft, No distended Musculoskeletal: nl extremities to inspection Labs Result Diagram: 02/14/17 1210 02/14/17 1210 Medications Medications Current Medications Fentanyl 25 mcg 25 mcg Q10M PRN IV SEDATION; Start 02/14/17 at 12:30 Midazolam HCl 50 ml @ 2 mls/hr ONCE IV Last administered on 02/14/17t 13:52; Admin Dose 2 MLS/HR; Start 02/14/17 at 12:30 Sodium Chloride (NS) 1,000 ml @ 100 mls/hr Q10H IV ; Start 02/14/17 at 15:57 Ondansetron HCl (Zofran Inj) 4 mg Q6H PRN IV NAUSEA AND/OR VOMITING; Start 02/14 at 16:00 Morphine Sulfate (morphine) 2 mg Q4H PRN IV SEVERE PAIN LEVEL 7-10; Start at 16:00 Pantoprazole (Protonix Iv) 40 mg DAILY@06 IV ; Start 02/15/17 at 06:00 GUILHERME YATES Feb 14, 2017 16:30
--- NOTE | 2017-02-14 16:57 | CONS ---
Date/Time of Note Date/Time of Note DATE: 02/14/17 TIME: 16:44 Assessment/Plan Assessment/Plan Additional Assessment/Plan Cardiac arrest Traumatic pneumothorax post CPR -Patient found unresponsive in the street with no bystander CPR, initial rhythm in discussion with the ER doctor was PEA in the field and ACLS protocol performed. Patient was initially in PEA as well in the emergency room and during ACLS protocol, multiple episodes of VT/VF requiring defibrillation. Current ECG with sinus rhythm with no significant ST-T abnormalities. Limited bedside echocardiogram with severely diminished left ventricular systolic ejection fraction approximate 25%. Would continue hypothermia protocol, continue amiodarone, serial cardiac enzymes, full echocardiogram when possible. Consultation Date/Type/Reason Admit Date/Time February 14, 2017 Type of Consultation: cv Reason for Consultation Cardiopulmonary arrest Hx of Present Illness This is a 76-year-old male who was found on a sidewalk bench unresponsive. No bystander CPR was performed. EMS was called and patient initially in PEA. Patient was brought to the emergency room with continual ACLS protocol. Patient was defibrillated multiple times secondary to VF/VT. patient did regain spontaneous circulation. Patient with evidence of pneumothorax as well and chest tubes placed. Patient currently on hypothermia protocol and unresponsive to verbal or tactile stimuli. History was obtained from the ER nursing staff and physician as well as medical records. Unable to be performed at the current time given patient's mental status Past Medical History Peripheral arterial disease Family History Significant Family History: no pertinent family hx Social History Smoking Status: Unknown if ever smoked Other Social History Presumed homeless Exam/Review of Systems Vital Signs Vitals Vital Signs Date Time Temp Pulse Resp B/P Pulse Ox O2 Delivery O2 Flow Rate FiO2 02/14/17 16:00 89.7 68 16 93/76 90 Mechanical Ventilator 02/14/17 15:18 100 Exam No response to verbal or noxious stimuli, intubated, hypothermia protocol, poor hygiene Respiratory: other (Coarse breath sounds bilaterally, no wheezing) Cardiovascular: other (S1-S2 heard), regular rate and rhythm (With frequent irregularities) Gastrointestinal: other (No grimacing with palpation, diminished bowel sounds) , soft Extremities: other Results Result Diagram: 02/14/17 1210 02/14/17 1210 Results 24 hrs Laboratory Tests Test 02/14/17 12:03 02/14/17 12:10 02/14/17 13:56 02/14/17 14:35 Blood Gas Specimen Source Blood arterial Arterial Blood Date Drawn 02/14/2017 12:45:43 PM Arterial Blood pH (Temp corrected) 7.149 *L Arterial Blood pCO2 (Temp correct) 38.7 Arterial Blood pO2 (Temp corrected) 63.5 L Arterial Blood HCO3 13.1 L Arterial Blood Base Excess -14.9 L Arterial Blood Oxygen Saturation 85.0 L Chris Test N/A Arterial Blood Gas Puncture Site Right Brachial Arterial Blood Carboxyhemoglobin 0.4 Arterial Blood Methemoglobin 0.3 Blood Gas A-a O2 Differential 610.8 H Oxyhemoglobin Percent 84.4 L Total Hemoglobin 11.6 L Blood Gas Temperature 37.0 Blood Gas Respiration Rate 16.0 Blood Gas Actual Respiration Rate 20 Blood Gas Modality VENT - AC FiO2 100.0 Blood Gas Inspiratory Time 0.90 Blood Gas Tidal Volume 450.0 Blood Gas Low PEEP Setting 5.0 Blood Gas Critical Value Read Back MD FERNY Blood Gas Notified Whom [place] Blood Gas Notified Time 02/14/2017 12:53:06 PM White Blood Count 4.4 #L Red Blood Count 2.88 #L Hemoglobin 9.8 #L Hematocrit 30.4 #L Mean Corpuscular Volume 105.6 H Mean Corpuscular Hemoglobin 34.0 H Mean Corpuscular Hemoglobin Concent 32.2 Red Cell Distribution Width 14.1 Platelet Count 82 L Mean Platelet Volume 10.4 # Neutrophils % 14.0 L Band Neutrophils % 6.0 H Lymphocytes % 69.0 H Monocytes % 6.0 Eosinophils % 3.0 Basophils % 2.0 Neutrophils # 0.6 L Lymphocytes # 3.0 H Monocytes # 0.3 Eosinophils # 0.1 Basophils # 0.1 Prothrombin Time 16.9 #H Prothrombin Time Ratio 1.3 INR International Normalized Ratio 1.37 Activated Partial Thromboplast Time 42.7 H Sodium Level 131 L Potassium Level 3.9 Chloride Level 108 Carbon Dioxide Level 15 L Anion Gap 12 Blood Urea Nitrogen 28 H Creatinine 1.25 H Glucose Level 241 H Lactic Acid Level 10.3 *H 5.6 *H Calcium Level 9.2 Phosphorus Level 7.4 H Magnesium Level 2.5 Total Bilirubin 0.0 L Direct Bilirubin 0.00 Indirect Bilirubin 0.0 Aspartate Amino Transf (AST/SGOT) 495 H Alanine Aminotransferase (ALT/SGPT) 418 H Alkaline Phosphatase 51 Troponin I 0.143 *H Total Protein 4.9 L Albumin 2.9 L Globulin 2.00 Albumin/Globulin Ratio 1.45 Lipase 131 Bedside Glucose 289 H Urine Color SASKIA Urine Clarity TURBID A Urine pH 9.0 Urine Specific [place] 1.009 Urine Ketones NEGATIVE Urine Nitrite POSITIVE A Urine Bilirubin NEGATIVE Urine Urobilinogen NEGATIVE Urine Leukocyte Esterase 2+ H Urine Microscopic RBC 6 H Urine Microscopic WBC 26 H Urine Squamous Epithelial Cells FEW Urine Amorphous Crystals FEW A Urine Bacteria FEW A Urine Hyaline Casts FEW A Urine Mucus FEW A Urine Hemoglobin 2+ H Urine Glucose 3+ H Urine Total Protein 2+ H Test 02/14/17 16:13 Bedside Glucose 347 H Medications Medications Current Medications Fentanyl 25 mcg 25 mcg Q10M PRN IV SEDATION; Start 02/14/17 at 12:30 Midazolam HCl 50 ml @ 2 mls/hr ONCE IV Last administered on 02/14/17t 13:52; Admin Dose 2 MLS/HR; Start 02/14/17 at 12:30 Sodium Chloride (NS) 1,000 ml @ 100 mls/hr Q10H IV ; Start 02/14/17 at 15:57 Ondansetron HCl (Zofran Inj) 4 mg Q6H PRN IV NAUSEA AND/OR VOMITING; Start 02/14 at 16:00 Morphine Sulfate (morphine) 2 mg Q4H PRN IV SEVERE PAIN LEVEL 7-10; Start at 16:00 Pantoprazole (Protonix Iv) 40 mg DAILY@06 IV ; Start 02/15/17 at 06:00 Procedures Procedures Initial ECG from the field demonstrates sinus rhythm, right bundle branch block , QRS 154 ms, nonspecific ST2 abnormalities ECG just done at 1648 demonstrates sinus rhythm with first-degree AV block DE interval 212 ms, septal and lateral Q waves, QRS 102 ms, nonspecific ST2 abnormalities Casey Schuler DO Feb 14, 2017 16:55
[2017-02-14] MEDS ORDERED: AMIODARONE 900 MG in DEXTROSE 5% 482 ML IV SCH (17:00)
[2017-02-14] MEDS ORDERED: ASPIRIN 300 MG SUPP PR ONE (17:00)
[2017-02-14] MEDS ORDERED: VECURONIUM 100 MG in DEXTROSE 5% 100 ML IV SCH (17:37)
[2017-02-14 17:53] LABS: TROPONIN-I 6.33 ng/ml (0.00-0.12)
[2017-02-14 17:56] LABS: CK-MB 22.6 ng/ml (0.0-2.4)
[2017-02-14] MEDS: ACCU-CHEK XX SCH ×7 (18:00→23:32)
[2017-02-14] MEDS ORDERED: MEPERIDINE 25 MG INJ IV PRN ×2 (18:00)
[2017-02-14] MEDS ORDERED: ACETAMINOPHEN 650 MG SUPP PR PRN (18:00)
[2017-02-14] MEDS ORDERED: DEXTROSE 50% 50 ML SYRINGE IV PRN ×2 (18:00)
[2017-02-14] MEDS ORDERED: NORepinephrine 8MG/250 ML (PMX 250 ML IV SCH (18:00)
[2017-02-14] MEDS: INSULIN HUMAN REGULAR 100 UNIT in SOD CHLORIDE 0.9% 99 ML IV SCH (18:22)
[2017-02-14] MEDS: VECURONIUM 100 MG in DEXTROSE 5% 100 ML IV SCH (18:31)
[2017-02-14 19:16] LABS: AADO2 Arterial 622.4 mmHg (7.0-24.0); Allen Test ACCEPTAB; Arterial Base Excess -13.4 mmol/L (-3.0-3); Arterial COHb 0.3 % (0.0-3.0); Arterial Fraction of Oxyhgb 89.3 % (93.0-99.0); Arterial HCO3 16.1 mmol/L (22.0-26.0); Arterial MetHb 0.1 % (0.0-1.5); Arterial Total Hemglobin 12.6 g/dl (12.0-18.0); MODE VENT - AC
--- NOTE | 2017-02-14 21:33 | RADRPT ---
PROCEDURE: XR Chest. CLINICAL INDICATION: Sepsis. Check nasogastric tube position. TECHNIQUE: Single frontal view. COMPARISON: 02/14/2017 at 1337 hours. FINDINGS: Endotracheal tube remains in position with the tip 8.5 cm above the agustín. This should be advanced approximately 4 cm. The nasogastric tube tip is at the gastroesophageal junction. This should be advanced approximately 10 cm. The left chest tube remains in satisfactory position and there is a sm all left pneumothorax measuring approximately 10% with associated left sided subcutaneous emphysema. Extensive bilateral pulmonary air space disease with right worse than left is unchanged. The hear t size is normal. There are multiple acute left rib fractures as seen previously. IMPRESSION: 1. The endotracheal tube should be advanced approximately 4 cm. 2. The nasogastric tube should be advanced approximately 10 cm. 3. Left chest tube and small left pneumothorax, unchanged. 4. Bilateral pulmonary air space disease with right worse than left is unchanged. 5. Multiple acute left rib fractures as seen previously. RPTAT: QQ .Guillermo Palafox MD, MD Date Time Electronically viewed and signed by .Guillermo Palafox MD, on 02/14/2017 21:32 .R/
[2017-02-14] MEDS: ARTIFICIAL TEARS 15 ML OPH BOTH EYES SCH ×2 (21:44→23:32)
[2017-02-14] MEDS: OCULAR LUBRICANT 3.5 GM OPH OINT BOTH EYES SCH ×2 (21:44→23:32)
[2017-02-14] MEDS: ACETAMINOPHEN 650MG/20.3ML CUP PO SCH (23:25)
[2017-02-14 23:49] LABS: AADO2 Arterial 455.2 mmHg (7.0-24.0); Allen Test ACCEPTAB; Arterial Base Excess -13.5 mmol/L (-3.0-3); Arterial COHb 0.3 % (0.0-3.0); Arterial HCO3 14.4 mmol/L (22.0-26.0); Arterial MetHb 0.3 % (0.0-1.5); MODE VENT - AC
[2017-02-15] VITALS (105 sets, daily range): BP systolic 75–117; BP diastolic 62–101; PULSE 51–70; RESP 0–28; BMI 21.2
[2017-02-15] MEDS ORDERED: DEXTROSE 5%-0.45% NACL 1,000 ML IV SCH (01:00)
[2017-02-15] MEDS: ACCU-CHEK XX SCH ×22 (01:04→22:43)
[2017-02-15 01:36] LABS: ADD SCAN DIFF NO
[2017-02-15 01:39] LABS: ABNORMAL IP MESSAGE 1; BASOPHILS % 0.1 % (0.0-2.0); EOSINOPHILS % 0.1 % (0.0-7.0); HEMATOCRIT 34.3 % (42.0-52.0); HEMOGLOBIN 11.2 g/dl (14.0-18.0); LYMPHOCYTES # 1.1 10^3/ul (0.8-2.9); LYMPHOCYTES % 10.6 % (15.0-51.0); MEAN CORPUSCULAR HEMOGLOBIN 33.1 pg (29.0-33.0); MEAN CORPUSCULAR HGB CONC 32.7 g/dl (32.0-37.0); MEAN CORPUSCULAR VOLUME 101.5 fl (82.0-101.0); MEAN PLATELET VOLUME 10.2 fl (7.4-10.4); MONOCYTE # 1.5 10^3/ul (0.3-0.9); MONOCYTES % 15.5 % (0.0-11.0); NEUTROPHIL # 7.2 10^3/ul (1.6-7.5); PLATELET COUNT 107 10^3/UL (140-415); RED BLOOD COUNT 3.38 10^6/ul (4.70-6.10); RED CELL DISTRIBUTION WIDTH 13.6 % (11.5-14.5); WHITE BLOOD COUNT 9.9 10^3/ul (4.8-10.8)
[2017-02-15 01:59] LABS: INR 1.21; PARTIAL THROMBOPLASTIN TIME 30.2 Sec (25.0-35.0); PROTIME 15.4 Sec (12.2-14.2); PT RATIO 1.2
[2017-02-15 02:02] LABS: CALCIUM 8.4 mg/dl (8.4-10.2); CREATININE 1.45 mg/dl (0.61-1.24); MAGNESIUM 2.1 mg/dl (1.7-2.5); PHOSPHORUS 2.5 mg/dl (2.5-4.9); POTASSIUM 3.3 mmol/L (3.5-5.1)
[2017-02-15 02:19] LABS: CK-MB 40.9 ng/ml (0.0-2.4); TROPONIN-I 13.7 ng/ml (0.00-0.12)
[2017-02-15] MEDS ORDERED: POTASSIUM CHLORIDE 250 ML IVPB ONE (03:00)
[2017-02-15] MEDS: ACETAMINOPHEN 650MG/20.3ML CUP PO SCH (05:13)
[2017-02-15] MEDS: PANTOPRAZOLE 40 MG INJ IV SCH (05:22)
[2017-02-15] MEDS: OCULAR LUBRICANT 3.5 GM OPH OINT BOTH EYES SCH ×3 (05:22→18:56)
[2017-02-15] MEDS: ARTIFICIAL TEARS 15 ML OPH BOTH EYES SCH ×3 (05:22→18:56)
--- NOTE | 2017-02-15 08:50 | CONS ---
Date/Time of Note Date/Time of Note DATE: 02/15/17 TIME: 08:42 Assessment/Plan Assessment/Plan Additional Assessment/Plan IMP: 1. Cardiopulmonary Arrest: query primary cardiac event leading to respiratory failure and multilobar aspiration pneumonia or visa versa. 2. Respiratory Failure/Vent 3. Multifocal pneumonia--likely aspiration 4. s/p VF 5. ARF 6. Barotrauma--s/p CPR 7. Hypoglycemia 8. shock RECS: 1. Vent support--Increase rate; lower FiO2 and PEEP 2. NaHCO3 gtt 3. Amiodarone gtt 4. Levophed to MAP > 65 mm Hg 5. Hypothermia protocol 6. Will need to assess mental status for anoxic brain injury post rewarming 7. Broad spectrum abx 8. May need a new chest tube vs. declotting of current tube as it appears non- functional 9. Prognosis very grim Consultation Date/Type/Reason Admit Date/Time February 14, 2017 Type of Consultation: PUlm/CCM Hx of Present Illness Briefly, this is a 76-year-old male whose past medical history is unknown, who was found on a sidewalk bench unresponsive. No bystander CPR was performed. EMS was called and patient initially in PEA. Patient was brought to the emergency room with continual ACLS protocol. Patient was defibrillated multiple times secondary to VF/VT. patient did regain spontaneous circulation. Patient with evidence of pneumothorax as well and chest tubes placed. Patient currently on hypothermia protocol and unresponsive to verbal or tactile stimuli. Unable to obtain Past Medical History unable to obtain Past Surgical History unable to obtain Family History Significant Family History: no pertinent family hx Social History unable to obtain Smoking Status: Unknown if ever smoked Exam/Review of Systems Vital Signs Vitals Vital Signs Date Time Temp Pulse Resp B/P Pulse Ox O2 Delivery O2 Flow Rate FiO2 02/15/17 08:00 91.1 55 20 115/99 100 Mechanical Ventilator 02/15/17 08:00 100 Intake and Output 02/14/17 02/14/17 02/15/17 15:00 23:00 07:00 Intake Total 663.960 ml 1198.375 ml Output Total 482 ml 240 ml Balance 181.960 ml 958.375 ml Exam Constitutional: non-verbal Head: atraumatic, normocephalic ENMT: intubated, nl external ears & nose Neck: supple Respiratory: crackles/rales, tactile fremitus Cardiovascular: systolic murmur Gastrointestinal: firm, soft Extremities: cyanosis, normal pulses Neurological: other (paralyzed therefore unable to perform thorough examination ) Results Result Diagram: 02/15/17 0119 02/15/17 0250 Results 24 hrs Laboratory Tests Test 02/14/17 12:03 02/14/17 12:10 02/14/17 13:56 02/14/17 14:35 Blood Gas Specimen Source Blood arterial Arterial Blood Date Drawn 02/14/2017 12:45:43 PM Arterial Blood pH (Temp corrected) 7.149 *L Arterial Blood pCO2 (Temp correct) 38.7 Arterial Blood pO2 (Temp corrected) 63.5 L Arterial Blood HCO3 13.1 L Arterial Blood Base Excess -14.9 L Arterial Blood Oxygen Saturation 85.0 L Chris Test N/A Arterial Blood Gas Puncture Site Right Brachial Arterial Blood Carboxyhemoglobin 0.4 Arterial Blood Methemoglobin 0.3 Blood Gas A-a O2 Differential 610.8 H Oxyhemoglobin Percent 84.4 L Total Hemoglobin 11.6 L Blood Gas Temperature 37.0 Blood Gas Respiration Rate 16.0 Blood Gas Actual Respiration Rate 20 Blood Gas Modality VENT - AC FiO2 100.0 Blood Gas Inspiratory Time 0.90 Blood Gas Tidal Volume 450.0 Blood Gas Low PEEP Setting 5.0 Blood Gas Critical Value Read Back MD FERNY Blood Gas Notified Whom [place] Blood Gas Notified Time 02/14/2017 12:53:06 PM White Blood Count 4.4 #L Red Blood Count 2.88 #L Hemoglobin 9.8 #L Hematocrit 30.4 #L Mean Corpuscular Volume 105.6 H Mean Corpuscular Hemoglobin 34.0 H Mean Corpuscular Hemoglobin Concent 32.2 Red Cell Distribution Width 14.1 Platelet Count 82 L Mean Platelet Volume 10.4 # Neutrophils % 14.0 L Band Neutrophils % 6.0 H Lymphocytes % 69.0 H Monocytes % 6.0 Eosinophils % 3.0 Basophils % 2.0 Neutrophils # 0.6 L Lymphocytes # 3.0 H Monocytes # 0.3 Eosinophils # 0.1 Basophils # 0.1 Prothrombin Time 16.9 #H Prothrombin Time Ratio 1.3 INR International Normalized Ratio 1.37 Activated Partial Thromboplast Time 42.7 H Sodium Level 131 L Potassium Level 3.9 Chloride Level 108 Carbon Dioxide Level 15 L Anion Gap 12 Blood Urea Nitrogen 28 H Creatinine 1.25 H Glucose Level 241 H Lactic Acid Level 10.3 *H 5.6 *H Calcium Level 9.2 Phosphorus Level 7.4 H Magnesium Level 2.5 Total Bilirubin 0.0 L Direct Bilirubin 0.00 Indirect Bilirubin 0.0 Aspartate Amino Transf (AST/SGOT) 495 H Alanine Aminotransferase (ALT/SGPT) 418 H Alkaline Phosphatase 51 Troponin I 0.143 *H Total Protein 4.9 L Albumin 2.9 L Globulin 2.00 Albumin/Globulin Ratio 1.45 Lipase 131 Bedside Glucose 289 H Urine Color [place] Urine Clarity TURBID A Urine pH 9.0 Urine Specific [place] 1.009 Urine Ketones NEGATIVE Urine Nitrite POSITIVE A Urine Bilirubin NEGATIVE Urine Urobilinogen NEGATIVE Urine Leukocyte Esterase 2+ H Urine Microscopic RBC 6 H Urine Microscopic WBC 26 H Urine Squamous Epithelial Cells FEW Urine Amorphous Crystals FEW A Urine Bacteria FEW A Urine Hyaline Casts FEW A Urine Mucus FEW A Urine Hemoglobin 2+ H Urine Glucose 3+ H Urine Total Protein 2+ H Test 02/14/17 16:13 02/14/17 17:10 02/14/17 17:37 02/14/17 17:46 Bedside Glucose 347 H 281 H Lactic Acid Level 4.6 *H Creatine Kinase 639 H Creatine Kinase Index 3.5 Creatinine Kinase MB (Mass) 22.60 H Troponin I 6.330 *H Blood Gas Specimen Source Blood arterial Arterial Blood Date Drawn 02/14/2017 7:05:11 PM Arterial Blood pH (Temp corrected) 7.156 *L Arterial Blood pCO2 (Temp correct) 44.2 Arterial Blood pO2 (Temp corrected) 55.8 L Arterial Blood HCO3 16.1 L Arterial Blood Base Excess -13.4 L Arterial Blood Oxygen Saturation 89.7 L Chris Test ACCEPTAB Arterial Blood Gas Puncture Site Right Radial Arterial Blood Carboxyhemoglobin 0.3 Arterial Blood Methemoglobin 0.1 Blood Gas A-a O2 Differential 622.4 H Oxyhemoglobin Percent 89.3 L Total Hemoglobin 12.6 Blood Gas Temperature 33.0 Blood Gas Respiration Rate 16.0 Blood Gas Actual Respiration Rate 16 Blood Gas Modality VENT - AC FiO2 100.0 Blood Gas Tidal Volume 450.0 Blood Gas Low PEEP Setting 5.0 Blood Gas Critical Value Read Back Sho TORRES RN Blood Gas Notified Whom Ade CONNOLLYP Blood Gas Notified Time 02/14/2017 7:16:02 PM Test 02/14/17 19:25 02/14/17 20:03 02/14/17 21:37 02/14/17 22:37 Bedside Glucose 234 H 232 H 131 125 Test 02/14/17 23:19 02/14/17 23:37 02/14/17 23:56 02/15/17 00:52 Bedside Glucose 125 90 71 Blood Gas Specimen Source Blood arterial Arterial Blood Date Drawn 02/14/2017 11:30:26 PM Arterial Blood pH (Temp corrected) 7.216 *L Arterial Blood pCO2 (Temp correct) 34.6 L Arterial Blood pO2 (Temp corrected) 86.0 Arterial Blood HCO3 14.4 L Arterial Blood Base Excess -13.5 L Arterial Blood Oxygen Saturation 96.6 Chris Test ACCEPTAB Arterial Blood Gas Puncture Site Right Radial Arterial Blood Carboxyhemoglobin 0.3 Arterial Blood Methemoglobin 0.3 Blood Gas A-a O2 Differential 455.2 H Oxyhemoglobin Percent 96.0 Total Hemoglobin 12.0 Blood Gas Temperature 33.2 Blood Gas Respiration Rate 25.0 Blood Gas Actual Respiration Rate 25 Blood Gas Modality VENT - AC FiO2 80.0 Blood Gas Tidal Volume 450.0 Blood Gas Low PEEP Setting 10.0 Blood Gas Critical Value Read Back T YORDY RN Blood Gas Notified Whom [place] Blood Gas Notified Time 02/14/2017 11:49:35 PM Test 02/15/17 01:19 02/15/17 01:51 02/15/17 02:28 02/15/17 02:50 White Blood Count 9.9 # Red Blood Count 3.38 L Hemoglobin 11.2 L Hematocrit 34.3 L Mean Corpuscular Volume 101.5 H Mean Corpuscular Hemoglobin 33.1 H Mean Corpuscular Hemoglobin Concent 32.7 Red Cell Distribution Width 13.6 Platelet Count 107 #L Mean Platelet Volume 10.2 Neutrophils % 73.0 Lymphocytes % 10.6 L Monocytes % 15.5 H Eosinophils % 0.1 Basophils % 0.1 Nucleated Red Blood Cells % 0.0 Neutrophils # 7.2 Lymphocytes # 1.1 Monocytes # 1.5 H Eosinophils # 0.0 Basophils # 0.0 Nucleated Red Blood Cells # 0.0 Prothrombin Time 15.4 H Prothrombin Time Ratio 1.2 INR International Normalized Ratio 1.21 Activated Partial Thromboplast Time 30.2 Sodium Level 144 Potassium Level 3.3 L Chloride Level 113 H Carbon Dioxide Level 20 L Anion Gap 14 Blood Urea Nitrogen 37 H Creatinine 1.45 H Glucose Level 41 #*L 96 # Calcium Level 8.4 Phosphorus Level 2.5 # Magnesium Level 2.1 Creatine Kinase 1050 #H Creatine Kinase Index 3.9 Creatinine Kinase MB (Mass) 40.90 H Troponin I 13.700 *H Amylase Level 384 H Lipase 198 Bedside Glucose 77 98 Test 02/15/17 02:51 02/15/17 04:51 02/15/17 06:08 02/15/17 06:41 Bedside Glucose 105 117 114 118 Test 02/15/17 08:28 Bedside Glucose 162 Medications Medications Current Medications Fentanyl 25 mcg 25 mcg Q10M PRN IV SEDATION; Start 02/14/17 at 12:30 Midazolam HCl 50 ml @ 2 mls/hr ONCE IV Last administered on 02/14/17 13:52; Admin Dose 2 MLS/HR; Start 02/14/17 at 12:30 Sodium Chloride (NS) 1,000 ml @ 100 mls/hr Q10H IV Last administered on 18:27; Admin Dose 100 MLS/HR; Start 02/14/17 at 15:57; Status Future Hold Ondansetron HCl (Zofran Inj) 4 mg Q6H PRN IV NAUSEA AND/OR VOMITING; Start 02/14 at 16:00 Morphine Sulfate (morphine) 2 mg Q4H PRN IV SEVERE PAIN LEVEL 7-10; Start at 16:00 Pantoprazole 40 mg 40 mg DAILY@06 IV Last administered on 02/15/17 05:22; Admin Dose 40 MG; Start 02/15/17 at 06:00 Amiodarone HCl/ Dextrose (Cordarone Iv/ D5W) 500 ml @ 0 mls/hr Q0M IV Last administered on 02/14/17 17:51; Admin Dose 33.3 MLS/HR; Start 02/14/17 at 17:00; Status Future Hold Acetaminophen (Tylenol Supp) 650 mg Q4H PRN HI TEMP > 37C; Start 02/14/17 at 18: 00 Acetaminophen (Tylenol Liquid) 650 mg Q4H PRN PO TEMP > 37C; Start 02/14/17 at 18:00 Acetaminophen (Tylenol Supp) 500 mg Q6H HI ; Start 02/15/17 at 18:00 Acetaminophen (Tylenol Liquid) 500 mg Q6H PO Last administered on 02/15/17 05: 13; Admin Dose 500 MG; Start 02/15/17 at 18:00 Meperidine HCl (Demerol) 12.5 mg Q4H PRN IV POST OPERATIVE SHIVERING; Start 02/14/17 at 18:00 Meperidine HCl (Demerol) 25 mg Q4H PRN IV POST OPERATIVE SHIVERING; Start at 18:00 Eye Lubricant ([place]wa Oint) 1 applic Q6 BOTH EYES Last administered on 02/15/17 05:22; Admin Dose 1 APPLIC; Start 02/14/17 at 18:00 Eye Lubricant (Artificial Tears Oph) 2 drop Q6 BOTH EYES Last administered on 05:22; Admin Dose 2 DROP; Start 02/14/17 at 18:00 Diagnostic Test (Pha) (Accu-Chek) 1 ea Q1H XX Last administered on 02/15/17 05: 22; Admin Dose 1 EA; Start 02/14/17 at 18:00 Dextrose (D50w Syringe) 25 ml Q15M PRN IV Till BS 80 mg/dL or above x2; Start 02/14/17 at 18:00 Dextrose 50 ml 50 ml Q15M PRN IV Till BS 80 mg/dL or above x2; Start 02/14/17 at 18:00 Vecuronium [place] 100 mg/ Dextrose 100 ml @ 4.2 mls/hr [id number] IV Last administered on 02/14/17 18:31; Admin Dose 3.5 MLS/HR; Start 02/14/17 at 18:31 Norepinephrine/ Dextrose (Levophed/D5W) 500 ml @ 0 mls/hr TITRATE IV Last administered on 02/15/17 05:55; Admin Dose 11 MLS/HR; Start 02/14/17 at 22:00 FRANKO GRANADOS MD Feb 15, 2017 08:50
[2017-02-15 08:57] LABS: ADD SCAN DIFF NO
[2017-02-15 09:17] LABS: HEMOGLOBIN 11.5 g/dl (14.0-18.0); MEAN CORPUSCULAR HEMOGLOBIN 33.4 pg (29.0-33.0); MEAN CORPUSCULAR VOLUME 101.7 fl (82.0-101.0); RED BLOOD COUNT 3.44 10^6/ul (4.70-6.10); WHITE BLOOD COUNT 9.3 10^3/ul (4.8-10.8)
[2017-02-15 09:18] LABS: ABNORMAL IP MESSAGE 1; BASOPHILS % 0.1 % (0.0-2.0); LYMPHOCYTES % 10.7 % (15.0-51.0); MEAN CORPUSCULAR HGB CONC 32.9 g/dl (32.0-37.0); MEAN PLATELET VOLUME 10.9 fl (7.4-10.4); MONOCYTE # 0.8 10^3/ul (0.3-0.9); MONOCYTES % 8.8 % (0.0-11.0); NEUTROPHIL # 7.5 10^3/ul (1.6-7.5); RED CELL DISTRIBUTION WIDTH 13.7 % (11.5-14.5)
[2017-02-15 09:20] LABS: INR 1.22; PROTIME 15.5 Sec (12.2-14.2); PT RATIO 1.2
[2017-02-15 09:21] LABS: PARTIAL THROMBOPLASTIN TIME 30.9 Sec (25.0-35.0)
[2017-02-15 09:25] LABS: PLATELET COUNT 95 10^3/UL (140-415)
[2017-02-15] MEDS: SODIUM BICARBONATE (IV ADD) 150 MEQ in DEXTROSE 5% 1,000 ML IV SCH ×3 (09:26→21:45)
[2017-02-15 09:28] LABS: ALBUMIN 3.2 g/dl (3.3-4.9); ALBUMIN/GLOBULIN RATIO 1.45; BILIRUBIN,INDIRECT 0.2 mg/dl (0-1.1); BILIRUBIN,TOTAL 0.2 mg/dl (0.2-1.3); CALCIUM 7.8 mg/dl (8.4-10.2); CREATININE 1.6 mg/dl (0.61-1.24); MAGNESIUM 2.2 mg/dl (1.7-2.5); POTASSIUM 4.3 mmol/L (3.5-5.1); TOTAL PROTEIN 5.4 g/dl (6.1-8.1)
[2017-02-15] MEDS ORDERED: VANCOMYCIN IV PER PHARMACY XX SCH (09:30)
[2017-02-15 09:31] LABS: AADO2 Arterial 386.4 mmHg (7.0-24.0); Allen Test ACCEPTAB; Arterial Base Excess -13.7 mmol/L (-3.0-3); Arterial HCO3 12.8 mmol/L (22.0-26.0); MODE VENT - AC
[2017-02-15 09:42] LABS: CK-MB 43.5 ng/ml (0.0-2.4); TROPONIN-I 9.71 ng/ml (0.00-0.12)
[2017-02-15] MEDS: PIPER-TAZO 3.375 GM IV (PMX) 100 ML IVPB SCH ×3 (09:42→22:11)
[2017-02-15] MEDS: MIDAZOLAM (DRIP) 50 mg/50 mL 50 ML IV SCH ×2 (09:48→22:37)
[2017-02-15 10:17] LABS: T3 UPTAKE 45.1 % (23.5-40.5)
--- NOTE | 2017-02-15 10:40 | CONS ---
Date/Time of Note Date/Time of Note DATE: 02/15/17 TIME: 10:36 Assessment/Plan Assessment/Plan Chief Complaint/Hosp Course 1) Cardiopulmonary arrest 2) QT prolongation 3) PEA 4) Severe LV dysfunction 5) Biomarkers consistent with myocardial infarction either demand or primary 6) CROW 7) CHF systolic acute Problems: Additional Assessment/Plan 1) ASA 2) Cath eventually based on neuro status, high risk 3) prognosis very limited 4) wean pressors 5) replete K and Mag as needed 6) no beta naida and BERTHA at this time given hypotension 7) no family present and known at this time Consultation Date/Type/Reason Admit Date/Time Feb 14, 2017 at 16:02 Initial Consult Date Type of Consultation: cv 24 HR Interval Summary Free Text/Dictation intubated, nonreactive, ventilated Subjective hx not possible: pt non-verbal, pt critical Exam/Review of Systems Vital Signs Vitals Vital Signs Date Time Temp Pulse Resp B/P Pulse Ox O2 Delivery O2 Flow Rate FiO2 02/15/17 08:00 56 02/15/17 08:00 91.1 20 115/99 100 Mechanical Ventilator 02/15/17 08:00 100 Intake and Output 02/14/17 02/14/17 02/15/17 15:00 23:00 07:00 Intake Total 663.960 ml 1198.375 ml Output Total 482 ml 240 ml Balance 181.960 ml 958.375 ml Exam Constitutional: non-verbal Head: atraumatic, normocephalic Neck: jvd Respiratory: diminished breath sounds Cardiovascular: regular rate and rhythm Musculoskeletal: nl extremities to inspection Extremities: normal pulses Results Result Diagram: 02/15/1730 02/15/17 0830 Results 24 hrs Laboratory Tests Test 02/14/17 12:03 02/14/17 12:10 02/14/17 13:56 02/14/17 14:35 Blood Gas Specimen Source Blood arterial Arterial Blood Date Drawn 02/14/2017 12:45:43 PM Arterial Blood pH (Temp corrected) 7.149 *L Arterial Blood pCO2 (Temp correct) 38.7 Arterial Blood pO2 (Temp corrected) 63.5 L Arterial Blood HCO3 13.1 L Arterial Blood Base Excess -14.9 L Arterial Blood Oxygen Saturation 85.0 L Chris Test N/A Arterial Blood Gas Puncture Site Right Brachial Arterial Blood Carboxyhemoglobin 0.4 Arterial Blood Methemoglobin 0.3 Blood Gas A-a O2 Differential 610.8 H Oxyhemoglobin Percent 84.4 L Total Hemoglobin 11.6 L Blood Gas Temperature 37.0 Blood Gas Respiration Rate 16.0 Blood Gas Actual Respiration Rate 20 Blood Gas Modality VENT - AC FiO2 100.0 Blood Gas Inspiratory Time 0.90 Blood Gas Tidal Volume 450.0 Blood Gas Low PEEP Setting 5.0 Blood Gas Critical Value Read Back MD FERNY Blood Gas Notified Whom [place] Blood Gas Notified Time 02/14/2017 12:53:06 PM White Blood Count 4.4 #L Red Blood Count 2.88 #L Hemoglobin 9.8 #L Hematocrit 30.4 #L Mean Corpuscular Volume 105.6 H Mean Corpuscular Hemoglobin 34.0 H Mean Corpuscular Hemoglobin Concent 32.2 Red Cell Distribution Width 14.1 Platelet Count 82 L Mean Platelet Volume 10.4 # Neutrophils % 14.0 L Band Neutrophils % 6.0 H Lymphocytes % 69.0 H Monocytes % 6.0 Eosinophils % 3.0 Basophils % 2.0 Neutrophils # 0.6 L Lymphocytes # 3.0 H Monocytes # 0.3 Eosinophils # 0.1 Basophils # 0.1 Prothrombin Time 16.9 #H Prothrombin Time Ratio 1.3 INR International Normalized Ratio 1.37 Activated Partial Thromboplast Time 42.7 H Sodium Level 131 L Potassium Level 3.9 Chloride Level 108 Carbon Dioxide Level 15 L Anion Gap 12 Blood Urea Nitrogen 28 H Creatinine 1.25 H Glucose Level 241 H Lactic Acid Level 10.3 *H 5.6 *H Calcium Level 9.2 Phosphorus Level 7.4 H Magnesium Level 2.5 Total Bilirubin 0.0 L Direct Bilirubin 0.00 Indirect Bilirubin 0.0 Aspartate Amino Transf (AST/SGOT) 495 H Alanine Aminotransferase (ALT/SGPT) 418 H Alkaline Phosphatase 51 Troponin I 0.143 *H Total Protein 4.9 L Albumin 2.9 L Globulin 2.00 Albumin/Globulin Ratio 1.45 Lipase 131 Bedside Glucose 289 H Urine Color [place] Urine Clarity TURBID A Urine pH 9.0 Urine Specific [place] 1.009 Urine Ketones NEGATIVE Urine Nitrite POSITIVE A Urine Bilirubin NEGATIVE Urine Urobilinogen NEGATIVE Urine Leukocyte Esterase 2+ H Urine Microscopic RBC 6 H Urine Microscopic WBC 26 H Urine Squamous Epithelial Cells FEW Urine Amorphous Crystals FEW A Urine Bacteria FEW A Urine Hyaline Casts FEW A Urine Mucus FEW A Urine Hemoglobin 2+ H Urine Glucose 3+ H Urine Total Protein 2+ H Test 02/14/17 16:13 02/14/17 17:10 02/14/17 17:37 02/14/17 17:46 Bedside Glucose 347 H 281 H Lactic Acid Level 4.6 *H Creatine Kinase 639 H Creatine Kinase Index 3.5 Creatinine Kinase MB (Mass) 22.60 H Troponin I 6.330 *H Blood Gas Specimen Source Blood arterial Arterial Blood Date Drawn 02/14/2017 7:05:11 PM Arterial Blood pH (Temp corrected) 7.156 *L Arterial Blood pCO2 (Temp correct) 44.2 Arterial Blood pO2 (Temp corrected) 55.8 L Arterial Blood HCO3 16.1 L Arterial Blood Base Excess -13.4 L Arterial Blood Oxygen Saturation 89.7 L Chris Test ACCEPTAB Arterial Blood Gas Puncture Site Right Radial Arterial Blood Carboxyhemoglobin 0.3 Arterial Blood Methemoglobin 0.1 Blood Gas A-a O2 Differential 622.4 H Oxyhemoglobin Percent 89.3 L Total Hemoglobin 12.6 Blood Gas Temperature 33.0 Blood Gas Respiration Rate 16.0 Blood Gas Actual Respiration Rate 16 Blood Gas Modality VENT - AC FiO2 100.0 Blood Gas Tidal Volume 450.0 Blood Gas Low PEEP Setting 5.0 Blood Gas Critical Value Read Back Sho TORRES RN Blood Gas Notified Whom Ade BETANCOURT RCP Blood Gas Notified Time 02/14/2017 7:16:02 PM Test 02/14/17 19:25 02/14/17 20:03 02/14/17 21:37 02/14/17 22:37 Bedside Glucose 234 H 232 H 131 125 Test 02/14/17 23:19 02/14/17 23:37 02/14/17 23:56 02/15/17 00:52 Bedside Glucose 125 90 71 Blood Gas Specimen Source Blood arterial Arterial Blood Date Drawn 02/14/2017 11:30:26 PM Arterial Blood pH (Temp corrected) 7.216 *L Arterial Blood pCO2 (Temp correct) 34.6 L Arterial Blood pO2 (Temp corrected) 86.0 Arterial Blood HCO3 14.4 L Arterial Blood Base Excess -13.5 L Arterial Blood Oxygen Saturation 96.6 Chris Test ACCEPTAB Arterial Blood Gas Puncture Site Right Radial Arterial Blood Carboxyhemoglobin 0.3 Arterial Blood Methemoglobin 0.3 Blood Gas A-a O2 Differential 455.2 H Oxyhemoglobin Percent 96.0 Total Hemoglobin 12.0 Blood Gas Temperature 33.2 Blood Gas Respiration Rate 25.0 Blood Gas Actual Respiration Rate 25 Blood Gas Modality VENT - AC FiO2 80.0 Blood Gas Tidal Volume 450.0 Blood Gas Low PEEP Setting 10.0 Blood Gas Critical Value Read Back T YORDY RONN Blood Gas Notified Whom [place] Blood Gas Notified Time 02/14/2017 11:49:35 PM Test 02/15/17 01:19 02/15/17 01:51 02/15/17 02:28 02/15/17 02:50 White Blood Count 9.9 # Red Blood Count 3.38 L Hemoglobin 11.2 L Hematocrit 34.3 L Mean Corpuscular Volume 101.5 H Mean Corpuscular Hemoglobin 33.1 H Mean Corpuscular Hemoglobin Concent 32.7 Red Cell Distribution Width 13.6 Platelet Count 107 #L Mean Platelet Volume 10.2 Neutrophils % 73.0 Lymphocytes % 10.6 L Monocytes % 15.5 H Eosinophils % 0.1 Basophils % 0.1 Nucleated Red Blood Cells % 0.0 Neutrophils # 7.2 Lymphocytes # 1.1 Monocytes # 1.5 H Eosinophils # 0.0 Basophils # 0.0 Nucleated Red Blood Cells # 0.0 Prothrombin Time 15.4 H Prothrombin Time Ratio 1.2 INR International Normalized Ratio 1.21 Activated Partial Thromboplast Time 30.2 Sodium Level 144 Potassium Level 3.3 L Chloride Level 113 H Carbon Dioxide Level 20 L Anion Gap 14 Blood Urea Nitrogen 37 H Creatinine 1.45 H Glucose Level 41 #*L 96 # Calcium Level 8.4 Phosphorus Level 2.5 # Magnesium Level 2.1 Creatine Kinase 1050 #H Creatine Kinase Index 3.9 Creatinine Kinase MB (Mass) 40.90 H Troponin I 13.700 *H Amylase Level 384 H Lipase 198 Bedside Glucose 77 98 Test 02/15/17 02:51 02/15/17 04:51 02/15/17 06:08 02/15/17 06:41 Bedside Glucose 105 117 114 118 Test 02/15/17 07:00 02/15/17 08:28 02/15/17 08:30 02/15/17 09:21 Blood Gas Specimen Source Blood arterial Arterial Blood Date Drawn 02/15/2017 7:35:25 AM Arterial Blood pH (Temp corrected) 7.271 *L Arterial Blood pCO2 (Temp correct) 26.9 L Arterial Blood pO2 (Temp corrected) 309.0 H Arterial Blood HCO3 12.8 L Arterial Blood Base Excess -13.7 L Chris Test ACCEPTAB Arterial Blood Gas Puncture Site Right Radial Blood Gas A-a O2 Differential 386.4 H Blood Gas Temperature 33.0 Blood Gas Respiration Rate 25.0 Blood Gas Actual Respiration Rate 25 Blood Gas Modality VENT - AC FiO2 100.0 Blood Gas Tidal Volume 500.0 Blood Gas Low PEEP Setting 10.0 Blood Gas Critical Value Read Back RN Blood Gas Notified Whom [place] Blood Gas Notified Time 02/15/2017 8:12:48 AM Bedside Glucose 162 152 White Blood Count 9.3 Red Blood Count 3.44 L Hemoglobin 11.5 L Hematocrit 35.0 L Mean Corpuscular Volume 101.7 H Mean Corpuscular Hemoglobin 33.4 H Mean Corpuscular Hemoglobin Concent 32.9 Red Cell Distribution Width 13.7 Platelet Count 95 L Mean Platelet Volume 10.9 H Neutrophils % 80.0 H Lymphocytes % 10.7 L Monocytes % 8.8 Eosinophils % 0.0 Basophils % 0.1 Nucleated Red Blood Cells % 0.0 Neutrophils # 7.5 Lymphocytes # 1.0 Monocytes # 0.8 Eosinophils # 0.0 Basophils # 0.0 Nucleated Red Blood Cells # 0.0 Prothrombin Time 15.5 H Prothrombin Time Ratio 1.2 INR International Normalized Ratio 1.22 Activated Partial Thromboplast Time 30.9 Sodium Level 140 Potassium Level 4.3 Chloride Level 117 H Carbon Dioxide Level 13 L Anion Gap 14 Blood Urea Nitrogen 39 H Creatinine 1.60 H Glucose Level 155 Hemoglobin A1c 5.4 Lactic Acid Level 2.5 H Calcium Level 7.8 L Phosphorus Level 3.0 Magnesium Level 2.2 Total Bilirubin 0.2 Direct Bilirubin 0.00 Indirect Bilirubin 0.2 Aspartate Amino Transf (AST/SGOT) 436 H Alanine Aminotransferase (ALT/SGPT) 394 H Alkaline Phosphatase 61 Creatine Kinase 1132 H Creatine Kinase Index 3.8 Creatinine Kinase MB (Mass) 43.50 H Troponin I 9.710 *H Total Protein 5.4 L Albumin 3.2 L Globulin 2.20 Albumin/Globulin Ratio 1.45 Free Thyroxine Index 3.70 Thyroxine (T4) 8.2 Triiodothyronine (T3) Uptake 45.1 H Test 02/15/17 10:12 Bedside Glucose 153 Medications Medications Current Medications Fentanyl 25 mcg 25 mcg Q10M PRN IV SEDATION; Start 02/14/17 at 12:30 Sodium Chloride (NS) 1,000 ml @ 100 mls/hr Q10H IV Last administered on 18:27; Admin Dose 100 MLS/HR; Start 02/14/17 at 15:57; Status Future Hold Ondansetron HCl (Zofran Inj) 4 mg Q6H PRN IV NAUSEA AND/OR VOMITING; Start 02/14 at 16:00 Morphine Sulfate (morphine) 2 mg Q4H PRN IV SEVERE PAIN LEVEL 7-10; Start at 16:00 Pantoprazole 40 mg 40 mg DAILY@06 IV Last administered on 02/15/17 05:22; Admin Dose 40 MG; Start 02/15/17 at 06:00 Amiodarone HCl/ Dextrose (Cordarone Iv/ D5W) 500 ml @ 0 mls/hr Q0M IV Last administered on 02/14/17 17:51; Admin Dose 33.3 MLS/HR; Start 02/14/17 at 17:00; Status Future Hold Acetaminophen (Tylenol Supp) 650 mg Q4H PRN [place] TEMP > 37C; Start 02/14/17 at 18: 00 Acetaminophen (Tylenol Liquid) 650 mg Q4H PRN PO TEMP > 37C; Start 02/14/17 at 18:00 Acetaminophen (Tylenol Supp) 500 mg Q6H [place] ; Start 02/15/17 at 18:00 Acetaminophen (Tylenol Liquid) 500 mg Q6H PO Last administered on 02/15/17 05: 13; Admin Dose 500 MG; Start 02/15/17 at 18:00 Meperidine HCl (Demerol) 12.5 mg Q4H PRN IV POST OPERATIVE SHIVERING; Start 02/14/17 at 18:00 Meperidine HCl (Demerol) 25 mg Q4H PRN IV POST OPERATIVE SHIVERING; Start at 18:00 Eye Lubricant ([place] Oint) 1 applic Q6 BOTH EYES Last administered on 02/15/17 05:22; Admin Dose 1 APPLIC; Start 02/14/17 at 18:00 Eye Lubricant (Artificial Tears Oph) 2 drop Q6 BOTH EYES Last administered on 05:22; Admin Dose 2 DROP; Start 02/14/17 at 18:00 Diagnostic Test (Pha) (Accu-Chek) 1 ea Q1H XX Last administered on 02/15/17 05: 22; Admin Dose 1 EA; Start 02/14/17 at 18:00 Dextrose (D50w Syringe) 25 ml Q15M PRN IV Till BS 80 mg/dL or above x2; Start 02/14/17 at 18:00 Dextrose 50 ml 50 ml Q15M PRN IV Till BS 80 mg/dL or above x2; Start 02/14/17 at 18:00 Vecuronium [place] 100 mg/ Dextrose 100 ml @ 4.2 mls/hr [id number] IV Last administered on 02/14/17 18:31; Admin Dose 3.5 MLS/HR; Start 02/14/17 at 18:31 Norepinephrine 16 mg/Dextrose 500 ml @ 0 mls/hr TITRATE IV Last administered on 02/15/17 05:55; Admin Dose 11 MLS/HR; Start 02/14/17 at 22:00 Piperacillin Sod/ Tazobactam Sod 100 ml @ 200 mls/hr Q8 IVPB Last administered on 02/15/17 09:42; Admin Dose 200 MLS/HR; Start 02/15/17 at 09:00 Azithromycin 500 mg/Sodium Chloride 250 ml @ 250 mls/hr DAILY IVPB ; Start 02/15 at 10:00 Sodium Bicarbonate 150 meq/Dextrose 1,150 ml @ 100 mls/hr [id number] IV Last administered on 02/15/17 09:26; Admin Dose 100 MLS/HR; Start 02/15/17 at 10:00 Vancomycin HCl 1.5 gm/Sodium Chloride 250 ml @ 83.333 mls/ hr ONCE@11 IVPB ; Start 02/15/17 at 11:00; Stop 02/15/17 at 16:00 Vancomycin HCl (Vancocin) 250 ml @ 125 mls/hr Q24H IVPB ; Start 02/16/17 at 11: 00 JOAN LEVY MD Feb 15, 2017 10:40
[2017-02-15] MEDS ORDERED: VANCOMYCIN 1.5 GM in SOD CHLORIDE 0.9% 250 ML IVPB SCH (11:00)
--- NOTE | 2017-02-15 11:09 | PN ---
Date/Time of Note Date/Time of Note DATE: 02/15/17 TIME: 11:06 Assessment/Plan VTE Prophylaxis VTE Prophylaxis Intervention: SCD's Assessment/Plan Chief Complaint/Hosp Course 1. Cardiac arrest secondary to V-fib status post ACLS with defibrillation and return of circulation Patient is status post intubation in the ER Continue hypothermia protocol Chest tube placed for pneumothorax caused by repeated chest compressions Cardiology consultation, patient does not meet criteria for emergent cardiac catheterization per pet handler on-call Broad-spectrum antibiotics 2. Acute respiratory distress secondary to cardiac arrest Continue vent management Pulmonology consultation appreciated 3. Pneumothorax secondary to repeated chest compressions status post chest tube placement 4. 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 Pancytopenia possibly secondary to sepsis Continue antibiotic Check for HIV 6. Acute kidney disease secondary to cardiac arrest IV fluid 7. Hyperglycemia-possibly reactive A1c is within normal limits 8. Hyponatremia likely secondary to dehydration-resolved IV fluids with normal saline 9. Bacteremia secondary to gram-positive cocci Vancomycin IV Prophylaxis: SCDs Problems: Subjective 24 Hr Interval Summary Subjective hx not possible: pt non-verbal Exam/Review of Systems Vital Signs Vitals Vital Signs Date Time Temp Pulse Resp B/P Pulse Ox O2 Delivery O2 Flow Rate FiO2 02/15/17 08:00 56 02/15/17 08:00 91.1 20 115/99 100 Mechanical Ventilator 02/15/17 08:00 100 Intake and Output 02/14/17 02/14/17 02/15/17 15:00 23:00 07:00 Intake Total 663.960 ml 1198.375 ml Output Total 482 ml 240 ml Balance 181.960 ml 958.375 ml Exam Constitutional: non-verbal ENMT: intubated Respiratory: clear to auscultation Cardiovascular: regular rate and rhythm Gastrointestinal: soft, No distended Musculoskeletal: nl extremities to inspection Results Result Diagram: 02/15/17 0830 02/15/17 0830 Results 24 hrs Laboratory Tests Test 02/14/17 12:03 02/14/17 12:10 02/14/17 13:56 02/14/17 14:35 Blood Gas Specimen Source Blood arterial Arterial Blood Date Drawn 02/14/2017 12:45:43 PM Arterial Blood pH (Temp corrected) 7.149 *L Arterial Blood pCO2 (Temp correct) 38.7 Arterial Blood pO2 (Temp corrected) 63.5 L Arterial Blood HCO3 13.1 L Arterial Blood Base Excess -14.9 L Arterial Blood Oxygen Saturation 85.0 L Chris Test N/A Arterial Blood Gas Puncture Site Right Brachial Arterial Blood Carboxyhemoglobin 0.4 Arterial Blood Methemoglobin 0.3 Blood Gas A-a O2 Differential 610.8 H Oxyhemoglobin Percent 84.4 L Total Hemoglobin 11.6 L Blood Gas Temperature 37.0 Blood Gas Respiration Rate 16.0 Blood Gas Actual Respiration Rate 20 Blood Gas Modality VENT - AC FiO2 100.0 Blood Gas Inspiratory Time 0.90 Blood Gas Tidal Volume 450.0 Blood Gas Low PEEP Setting 5.0 Blood Gas Critical Value Read Back MD FERNY Blood Gas Notified Whom [place] Blood Gas Notified Time 02/14/2017 12:53:06 PM White Blood Count 4.4 #L Red Blood Count 2.88 #L Hemoglobin 9.8 #L Hematocrit 30.4 #L Mean Corpuscular Volume 105.6 H Mean Corpuscular Hemoglobin 34.0 H Mean Corpuscular Hemoglobin Concent 32.2 Red Cell Distribution Width 14.1 Platelet Count 82 L Mean Platelet Volume 10.4 # Neutrophils % 14.0 L Band Neutrophils % 6.0 H Lymphocytes % 69.0 H Monocytes % 6.0 Eosinophils % 3.0 Basophils % 2.0 Neutrophils # 0.6 L Lymphocytes # 3.0 H Monocytes # 0.3 Eosinophils # 0.1 Basophils # 0.1 Prothrombin Time 16.9 #H Prothrombin Time Ratio 1.3 INR International Normalized Ratio 1.37 Activated Partial Thromboplast Time 42.7 H Sodium Level 131 L Potassium Level 3.9 Chloride Level 108 Carbon Dioxide Level 15 L Anion Gap 12 Blood Urea Nitrogen 28 H Creatinine 1.25 H Glucose Level 241 H Lactic Acid Level 10.3 *H 5.6 *H Calcium Level 9.2 Phosphorus Level 7.4 H Magnesium Level 2.5 Total Bilirubin 0.0 L Direct Bilirubin 0.00 Indirect Bilirubin 0.0 Aspartate Amino Transf (AST/SGOT) 495 H Alanine Aminotransferase (ALT/SGPT) 418 H Alkaline Phosphatase 51 Troponin I 0.143 *H Total Protein 4.9 L Albumin 2.9 L Globulin 2.00 Albumin/Globulin Ratio 1.45 Lipase 131 Bedside Glucose 289 H Urine Color SASKIA Urine Clarity TURBID A Urine pH 9.0 Urine Specific [place] 1.009 Urine Ketones NEGATIVE Urine Nitrite POSITIVE A Urine Bilirubin NEGATIVE Urine Urobilinogen NEGATIVE Urine Leukocyte Esterase 2+ H Urine Microscopic RBC 6 H Urine Microscopic WBC 26 H Urine Squamous Epithelial Cells FEW Urine Amorphous Crystals FEW A Urine Bacteria FEW A Urine Hyaline Casts FEW A Urine Mucus FEW A Urine Hemoglobin 2+ H Urine Glucose 3+ H Urine Total Protein 2+ H Test 02/14/17 16:13 02/14/17 17:10 02/14/17 17:37 02/14/17 17:46 Bedside Glucose 347 H 281 H Lactic Acid Level 4.6 *H Creatine Kinase 639 H Creatine Kinase Index 3.5 Creatinine Kinase MB (Mass) 22.60 H Troponin I 6.330 *H Blood Gas Specimen Source Blood arterial Arterial Blood Date Drawn 02/14/2017 7:05:11 PM Arterial Blood pH (Temp corrected) 7.156 *L Arterial Blood pCO2 (Temp correct) 44.2 Arterial Blood pO2 (Temp corrected) 55.8 L Arterial Blood HCO3 16.1 L Arterial Blood Base Excess -13.4 L Arterial Blood Oxygen Saturation 89.7 L Chris Test ACCEPTAB Arterial Blood Gas Puncture Site Right Radial Arterial Blood Carboxyhemoglobin 0.3 Arterial Blood Methemoglobin 0.1 Blood Gas A-a O2 Differential 622.4 H Oxyhemoglobin Percent 89.3 L Total Hemoglobin 12.6 Blood Gas Temperature 33.0 Blood Gas Respiration Rate 16.0 Blood Gas Actual Respiration Rate 16 Blood Gas Modality VENT - AC FiO2 100.0 Blood Gas Tidal Volume 450.0 Blood Gas Low PEEP Setting 5.0 Blood Gas Critical Value Read Back Sho TORRES RN Blood Gas Notified Whom Ade BETANCOURT 3RD MATE Blood Gas Notified Time 02/14/2017 7:16:02 PM Test 02/14/17 19:25 02/14/17 20:03 02/14/17 21:37 02/14/17 22:37 Bedside Glucose 234 H 232 H 131 125 Test 02/14/17 23:19 02/14/17 23:37 02/14/17 23:56 02/15/17 00:52 Bedside Glucose 125 90 71 Blood Gas Specimen Source Blood arterial Arterial Blood Date Drawn 02/14/2017 11:30:26 PM Arterial Blood pH (Temp corrected) 7.216 *L Arterial Blood pCO2 (Temp correct) 34.6 L Arterial Blood pO2 (Temp corrected) 86.0 Arterial Blood HCO3 14.4 L Arterial Blood Base Excess -13.5 L Arterial Blood Oxygen Saturation 96.6 Chris Test ACCEPTAB Arterial Blood Gas Puncture Site Right Radial Arterial Blood Carboxyhemoglobin 0.3 Arterial Blood Methemoglobin 0.3 Blood Gas A-a O2 Differential 455.2 H Oxyhemoglobin Percent 96.0 Total Hemoglobin 12.0 Blood Gas Temperature 33.2 Blood Gas Respiration Rate 25.0 Blood Gas Actual Respiration Rate 25 Blood Gas Modality VENT - AC FiO2 80.0 Blood Gas Tidal Volume 450.0 Blood Gas Low PEEP Setting 10.0 Blood Gas Critical Value Read Back T YORDY BRODY Blood Gas Notified Whom [place] Blood Gas Notified Time 02/14/2017 11:49:35 PM Test 02/15/17 01:19 02/15/17 01:51 02/15/17 02:28 02/15/17 02:50 White Blood Count 9.9 # Red Blood Count 3.38 L Hemoglobin 11.2 L Hematocrit 34.3 L Mean Corpuscular Volume 101.5 H Mean Corpuscular Hemoglobin 33.1 H Mean Corpuscular Hemoglobin Concent 32.7 Red Cell Distribution Width 13.6 Platelet Count 107 #L Mean Platelet Volume 10.2 Neutrophils % 73.0 Lymphocytes % 10.6 L Monocytes % 15.5 H Eosinophils % 0.1 Basophils % 0.1 Nucleated Red Blood Cells % 0.0 Neutrophils # 7.2 Lymphocytes # 1.1 Monocytes # 1.5 H Eosinophils # 0.0 Basophils # 0.0 Nucleated Red Blood Cells # 0.0 Prothrombin Time 15.4 H Prothrombin Time Ratio 1.2 INR International Normalized Ratio 1.21 Activated Partial Thromboplast Time 30.2 Sodium Level 144 Potassium Level 3.3 L Chloride Level 113 H Carbon Dioxide Level 20 L Anion Gap 14 Blood Urea Nitrogen 37 H Creatinine 1.45 H Glucose Level 41 #*L 96 # Calcium Level 8.4 Phosphorus Level 2.5 # Magnesium Level 2.1 Creatine Kinase 1050 #H Creatine Kinase Index 3.9 Creatinine Kinase MB (Mass) 40.90 H Troponin I 13.700 *H Amylase Level 384 H Lipase 198 Bedside Glucose 77 98 Test 02/15/17 02:51 02/15/17 04:51 02/15/17 06:08 02/15/17 06:41 Bedside Glucose 105 117 114 118 Test 02/15/17 07:00 02/15/17 08:28 02/15/17 08:30 02/15/17 09:21 Blood Gas Specimen Source Blood arterial Arterial Blood Date Drawn 02/15/2017 7:35:25 AM Arterial Blood pH (Temp corrected) 7.271 *L Arterial Blood pCO2 (Temp correct) 26.9 L Arterial Blood pO2 (Temp corrected) 309.0 H Arterial Blood HCO3 12.8 L Arterial Blood Base Excess -13.7 L Chris Test ACCEPTAB Arterial Blood Gas Puncture Site Right Radial Blood Gas A-a O2 Differential 386.4 H Blood Gas Temperature 33.0 Blood Gas Respiration Rate 25.0 Blood Gas Actual Respiration Rate 25 Blood Gas Modality VENT - AC FiO2 100.0 Blood Gas Tidal Volume 500.0 Blood Gas Low PEEP Setting 10.0 Blood Gas Critical Value Read Back RN Blood Gas Notified Whom [place] Blood Gas Notified Time 02/15/2017 8:12:48 AM Bedside Glucose 162 152 White Blood Count 9.3 Red Blood Count 3.44 L Hemoglobin 11.5 L Hematocrit 35.0 L Mean Corpuscular Volume 101.7 H Mean Corpuscular Hemoglobin 33.4 H Mean Corpuscular Hemoglobin Concent 32.9 Red Cell Distribution Width 13.7 Platelet Count 95 L Mean Platelet Volume 10.9 H Neutrophils % 80.0 H Lymphocytes % 10.7 L Monocytes % 8.8 Eosinophils % 0.0 Basophils % 0.1 Nucleated Red Blood Cells % 0.0 Neutrophils # 7.5 Lymphocytes # 1.0 Monocytes # 0.8 Eosinophils # 0.0 Basophils # 0.0 Nucleated Red Blood Cells # 0.0 Prothrombin Time 15.5 H Prothrombin Time Ratio 1.2 INR International Normalized Ratio 1.22 Activated Partial Thromboplast Time 30.9 Sodium Level 140 Potassium Level 4.3 Chloride Level 117 H Carbon Dioxide Level 13 L Anion Gap 14 Blood Urea Nitrogen 39 H Creatinine 1.60 H Glucose Level 155 Hemoglobin A1c 5.4 Lactic Acid Level 2.5 H Calcium Level 7.8 L Phosphorus Level 3.0 Magnesium Level 2.2 Total Bilirubin 0.2 Direct Bilirubin 0.00 Indirect Bilirubin 0.2 Aspartate Amino Transf (AST/SGOT) 436 H Alanine Aminotransferase (ALT/SGPT) 394 H Alkaline Phosphatase 61 Creatine Kinase 1132 H Creatine Kinase Index 3.8 Creatinine Kinase MB (Mass) 43.50 H Troponin I 9.710 *H Total Protein 5.4 L Albumin 3.2 L Globulin 2.20 Albumin/Globulin Ratio 1.45 Free Thyroxine Index 3.70 Thyroxine (T4) 8.2 Triiodothyronine (T3) Uptake 45.1 H Test 02/15/17 10:12 Bedside Glucose 153 Medications Medications Current Medications Fentanyl 25 mcg 25 mcg Q10M PRN IV SEDATION; Start 02/14/17 at 12:30 Sodium Chloride (NS) 1,000 ml @ 100 mls/hr Q10H IV Last administered on 18:27; Admin Dose 100 MLS/HR; Start 02/14/17 at 15:57; Status Future Hold Ondansetron HCl (Zofran Inj) 4 mg Q6H PRN IV NAUSEA AND/OR VOMITING; Start 02/14 at 16:00 Morphine Sulfate (morphine) 2 mg Q4H PRN IV SEVERE PAIN LEVEL 7-10; Start at 16:00 Pantoprazole 40 mg 40 mg DAILY@06 IV Last administered on 02/15/17 05:22; Admin Dose 40 MG; Start 02/15/17 at 06:00 Amiodarone HCl/ Dextrose (Cordarone Iv/ D5W) 500 ml @ 0 mls/hr Q0M IV Last administered on 02/14/17 17:51; Admin Dose 33.3 MLS/HR; Start 02/14/17 at 17:00; Status Future Hold Acetaminophen (Tylenol Supp) 650 mg Q4H PRN [place] TEMP > 37C; Start 02/14/17 at 18: 00 Acetaminophen (Tylenol Liquid) 650 mg Q4H PRN PO TEMP > 37C; Start 02/14/17 at 18:00 Acetaminophen (Tylenol Supp) 500 mg Q6H [place] ; Start 02/15/17 at 18:00 Acetaminophen (Tylenol Liquid) 500 mg Q6H PO Last administered on 02/15/17 05: 13; Admin Dose 500 MG; Start 02/15/17 at 18:00 Meperidine HCl (Demerol) 12.5 mg Q4H PRN IV POST OPERATIVE SHIVERING; Start 02/14/17 at 18:00 Meperidine HCl (Demerol) 25 mg Q4H PRN IV POST OPERATIVE SHIVERING; Start at 18:00 Eye Lubricant (Akwa Oint) 1 applic Q6 BOTH EYES Last administered on 02/15/17 05:22; Admin Dose 1 APPLIC; Start 02/14/17 at 18:00 Eye Lubricant (Artificial Tears Oph) 2 drop Q6 BOTH EYES Last administered on 05:22; Admin Dose 2 DROP; Start 02/14/17 at 18:00 Diagnostic Test (Pha) (Accu-Chek) 1 ea Q1H XX Last administered on 02/15/17 05: 22; Admin Dose 1 EA; Start 02/14/17 at 18:00 Dextrose (D50w Syringe) 25 ml Q15M PRN IV Till BS 80 mg/dL or above x2; Start 02/14/17 at 18:00 Dextrose 50 ml 50 ml Q15M PRN IV Till BS 80 mg/dL or above x2; Start 02/14/17 at 18:00 Vecuronium [place] 100 mg/ Dextrose 100 ml @ 4.2 mls/hr [id number] IV Last administered on 02/14/17 18:31; Admin Dose 3.5 MLS/HR; Start 02/14/17 at 18:31 Norepinephrine 16 mg/Dextrose 500 ml @ 0 mls/hr TITRATE IV Last administered on 02/15/17 05:55; Admin Dose 11 MLS/HR; Start 02/14/17 at 22:00 Piperacillin Sod/ Tazobactam Sod 100 ml @ 200 mls/hr Q8 IVPB Last administered on 02/15/17 09:42; Admin Dose 200 MLS/HR; Start 02/15/17 at 09:00 Azithromycin 500 mg/Sodium Chloride 250 ml @ 250 mls/hr DAILY IVPB ; Start 02/15 at 10:00 Sodium Bicarbonate 150 meq/Dextrose 1,150 ml @ 100 mls/hr [id number] IV Last administered on 02/15/17 09:26; Admin Dose 100 MLS/HR; Start 02/15/17 at 10:00 Vancomycin HCl 1.5 gm/Sodium Chloride 250 ml @ 83.333 mls/ hr ONCE@11 IVPB ; Start 02/15/17 at 11:00; Stop 02/15/17 at 16:00 Vancomycin HCl (Vancocin) 250 ml @ 125 mls/hr Q24H IVPB ; Start 02/16/17 at 11: 00 Aspirin (Aspirin) 300 mg DAILY [place] ; Start 02/15/17 at 11:00 GUILHERME YATES Feb 15, 2017 11:09
[2017-02-15] MEDS: ASPIRIN 300 MG SUPP PR SCH (11:11)
[2017-02-15] MEDS: AZITHROMYCIN 500 MG in SOD CHLORIDE 0.9% 250 ML IVPB SCH (11:11)
[2017-02-15 13:57] LABS: ADD SCAN DIFF NO
[2017-02-15 14:00] LABS: AADO2 Arterial 259.8 mmHg (7.0-24.0); Allen Test V; Arterial Base Excess -11.6 mmol/L (-3.0-3); Arterial COHb 0.3 % (0.0-3.0); Arterial Fraction of Oxyhgb 97.7 % (93.0-99.0); Arterial HCO3 13.3 mmol/L (22.0-26.0); Arterial MetHb 0.3 % (0.0-1.5); Arterial Total Hemglobin 11.9 g/dl (12.0-18.0); MODE VENT - AC
--- NOTE | 2017-02-15 14:01 | RADRPT ---
PROCEDURE: XR Chest. CLINICAL INDICATION: Shortness of breath. TECHNIQUE: Single frontal view. COMPARISON: 02/14/2017. FINDINGS: The endotracheal tube and left chest tube remain in unchanged position. As indicated previously, th e nasogastric tube should be advanced as the tip is at the gastroesophageal junction and the endotra cheal tube should be advanced approximately 4 cm. Bilateral pulmonary air space disease is unchange d. The heart size is normal. There is no pleural effusion. Multiple left rib fractures are once again noted. Left pneumothorax is no longer visualized. IMPRESSION: 1. The nasogastric tube should be advanced approximately 10 cm and the endotracheal tube should be advanced approximately 4 cm. 2. Unchanged appearance of the lungs. 3. No pneumothorax. RPTAT: QQ .Guillermo Palafox MD, MD Date Time Electronically viewed and signed by .Guillermo Palafox MD, MD on 02/15/2017 14:00 .R/
[2017-02-15 14:02] LABS: ABNORMAL IP MESSAGE 1; HEMATOCRIT 33.7 % (42.0-52.0); MEAN CORPUSCULAR HEMOGLOBIN 32.8 pg (29.0-33.0); MEAN CORPUSCULAR HGB CONC 32.6 g/dl (32.0-37.0); MEAN CORPUSCULAR VOLUME 100.6 fl (82.0-101.0); MEAN PLATELET VOLUME 10.5 fl (7.4-10.4); PLATELET COUNT 79 10^3/UL (140-415); RED BLOOD COUNT 3.35 10^6/ul (4.70-6.10); RED CELL DISTRIBUTION WIDTH 13.8 % (11.5-14.5); WHITE BLOOD COUNT 9.6 10^3/ul (4.8-10.8)
[2017-02-15 14:14] LABS: INR 1.16; PROTIME 14.8 Sec (12.2-14.2); PT RATIO 1.2
[2017-02-15 14:15] LABS: PARTIAL THROMBOPLASTIN TIME 33.5 Sec (25.0-35.0)
[2017-02-15 14:17] LABS: CALCIUM 7.4 mg/dl (8.4-10.2); CREATININE 1.68 mg/dl (0.61-1.24); POTASSIUM 3.9 mmol/L (3.5-5.1)
--- NOTE | 2017-02-15 14:23 | RADRPT ---
Vent Rate: 54 bpm RR Interval: 0 msec [place] Interval: 236 msec QRS Duration: 122 msec QT Interval: 612 msec QTC Interval: 580 msec P-R-T [place]: 73 - 86 - 0 degrees Sinus bradycardia with 1st degree AV block with occasional premature ventricular complexes Anterior infarct , age undetermined ST amp; T wave abnormality, consider inferolateral ischemia Prolonged QT int Abnormal ECG No previous tracing available for comparison Electronically Signed By: Gregorio Granados [id number]
--- NOTE | 2017-02-15 14:28 | RADRPT ---
Vent Rate: 56 bpm RR Interval: 0 msec [place] Interval: 212 msec QRS Duration: 114 msec QT Interval: 422 msec QTC Interval: 407 msec P-R-T [place]: 75 - 86 - 0 degrees Sinus bradycardia with 1st degree AV block Possible Anterior infarct , age undetermined prolonged QT interval Abnormal ECG No previous tracing available for comparison Electronically Signed By: Gregorio Granados [id number]
[2017-02-15] MEDS ORDERED: SOD CHLORIDE 0.9% 1,000 ML IV ONE ×2 (14:30→22:30)
[2017-02-15 15:43] LABS: EOSINOPHILS # 0.1 10^3/ul (0.0-0.5); LYMPHOCYTES # 1.1 10^3/ul (0.8-2.9); MONOCYTE # 0.6 10^3/ul (0.3-0.9); NEUTROPHIL # 7.5 10^3/ul (1.6-7.5)
[2017-02-15 15:44] LABS: PLATELET ESTIMATE PLT APPEAR DECREASED
--- NOTE | 2017-02-15 15:57 | RADRPT ---
Vent Rate: 53 bpm RR Interval: 0 msec [place] Interval: 0 msec QRS Duration: 114 msec QT Interval: 622 msec QTC Interval: 583 msec P-R-T [place]: 0 - 84 - [address] amp; T wave abnormality, consider inferior ischemia ST amp; T wave abnormality, consider anterolateral ischemia Prolonged QT Abnormal ECG No previous tracing available for comparison Electronically Signed By: Gregorio Granados [id number]
[2017-02-15] MEDS: VECURONIUM 100 MG in DEXTROSE 5% 100 ML IV SCH (17:29)
[2017-02-15] MEDS ORDERED: ACETAMINOPHEN 650 MG SUPP PR SCH (18:00)
[2017-02-15 18:59] LABS: ADD SCAN DIFF NO
[2017-02-15 19:06] LABS: ABNORMAL IP MESSAGE 1; EOSINOPHILS % 0.1 % (0.0-7.0); HEMOGLOBIN 12.1 g/dl (14.0-18.0)
[2017-02-15 19:11] LABS: BASOPHILS % 0.2 % (0.0-2.0); HEMATOCRIT 36.4 % (42.0-52.0); LYMPHOCYTES # 1.9 10^3/ul (0.8-2.9); LYMPHOCYTES % 12.2 % (15.0-51.0); MEAN CORPUSCULAR HEMOGLOBIN 33.3 pg (29.0-33.0); MEAN CORPUSCULAR HGB CONC 33.2 g/dl (32.0-37.0); MEAN CORPUSCULAR VOLUME 100.3 fl (82.0-101.0); MEAN PLATELET VOLUME 10.8 fl (7.4-10.4); MONOCYTE # 1.7 10^3/ul (0.3-0.9); NEUTROPHIL # 11.5 10^3/ul (1.6-7.5); NEUTROPHILS % 75.7 % (39.0-77.0); RED BLOOD COUNT 3.63 10^6/ul (4.70-6.10); RED CELL DISTRIBUTION WIDTH 13.9 % (11.5-14.5); WHITE BLOOD COUNT 15.2 10^3/ul (4.8-10.8)
[2017-02-15 19:16] LABS: INR 1.08; PARTIAL THROMBOPLASTIN TIME 30.8 Sec (25.0-35.0); PT RATIO 1.1
[2017-02-15 19:25] LABS: PLATELET COUNT 84 10^3/UL (140-415)
[2017-02-15] MEDS: ACETAMINOPHEN 650 MG SUPP PR SCH (20:29)
[2017-02-15 21:25] LABS: AADO2 Arterial 200.2 mmHg (7.0-24.0); Allen Test ACCEPTAB; Arterial Base Excess -7.9 mmol/L (-3.0-3); Arterial COHb 0.3 % (0.0-3.0); Arterial Fraction of Oxyhgb 97.8 % (93.0-99.0); Arterial HCO3 15.5 mmol/L (22.0-26.0); Arterial MetHb 0.3 % (0.0-1.5); Arterial Total Hemglobin 11.9 g/dl (12.0-18.0); MODE VENT - AC
[2017-02-15 22:41] LABS: CALCIUM 7.3 mg/dl (8.4-10.2); CREATININE 1.78 mg/dl (0.61-1.24); MAGNESIUM 1.8 mg/dl (1.7-2.5); POTASSIUM 3.6 mmol/L (3.5-5.1)
[2017-02-16] VITALS (103 sets, daily range): BP systolic 80–143; BP diastolic 62–127; PULSE 63–100; RESP 0–36
[2017-02-16] MEDS: ARTIFICIAL TEARS 15 ML OPH BOTH EYES SCH ×4 (00:17→17:30)
[2017-02-16] MEDS: OCULAR LUBRICANT 3.5 GM OPH OINT BOTH EYES SCH ×4 (00:17→17:30)
[2017-02-16] MEDS: ACCU-CHEK XX SCH ×20 (00:17→19:00)
[2017-02-16] MEDS: INSULIN HUMAN REGULAR 100 UNIT in SOD CHLORIDE 0.9% 99 ML IV SCH (00:20)
[2017-02-16] MEDS ORDERED: INSULIN REGULAR 10 ML INJ IV ONE (00:30)
[2017-02-16] MEDS ORDERED: DEXTROSE 50% 50 ML SYRINGE IV ONE (00:30)
[2017-02-16] MEDS ORDERED: NA POLYST SULFON 15 GM/60 ML BTL PO ONE (00:30)
[2017-02-16] MEDS ORDERED: ALBUTEROL 0.083% (NEB) 2.5 MG/3 ML AMP HHN PRN (00:30)
[2017-02-16 01:54] LABS: ADD SCAN DIFF NO
[2017-02-16 02:07] LABS: ABNORMAL IP MESSAGE 1; BASOPHILS % 0.1 % (0.0-2.0); HEMATOCRIT 30.3 % (42.0-52.0); HEMOGLOBIN 10.3 g/dl (14.0-18.0); LYMPHOCYTES # 1.2 10^3/ul (0.8-2.9); LYMPHOCYTES % 11.4 % (15.0-51.0); MEAN CORPUSCULAR HEMOGLOBIN 32.9 pg (29.0-33.0); MEAN CORPUSCULAR VOLUME 96.8 fl (82.0-101.0); MEAN PLATELET VOLUME 10.9 fl (7.4-10.4); MONOCYTES % 9.6 % (0.0-11.0); NEUTROPHILS % 78.6 % (39.0-77.0); PLATELET COUNT 74 10^3/UL (140-415); RED BLOOD COUNT 3.13 10^6/ul (4.70-6.10); WHITE BLOOD COUNT 10.1 10^3/ul (4.8-10.8)
[2017-02-16 02:14] LABS: INR 1.14; PROTIME 14.6 Sec (12.2-14.2); PT RATIO 1.1
[2017-02-16 02:15] LABS: PARTIAL THROMBOPLASTIN TIME 34.4 Sec (25.0-35.0)
[2017-02-16] MEDS: ACETAMINOPHEN 650 MG SUPP PR SCH ×2 (02:17→06:51)
[2017-02-16 02:27] LABS: CALCIUM 6.9 mg/dl (8.4-10.2); CREATININE 1.85 mg/dl (0.61-1.24); MAGNESIUM 1.7 mg/dl (1.7-2.5); PHOSPHORUS 3.3 mg/dl (2.5-4.9); POTASSIUM 3.7 mmol/L (3.5-5.1)
[2017-02-16] MEDS ORDERED: MAGNESIUM SULFATE 1 GM/D5W 100 ML IVPB ONE (03:30)
[2017-02-16] MEDS ORDERED: SOD CHLORIDE 0.9% 1,000 ML IV ONE (03:30)
[2017-02-16] MEDS ORDERED: PHENYLephrine 40 MG in DEXTROSE 5% 496 ML IV SCH (03:30)
[2017-02-16] MEDS ORDERED: CALCIUM GLUCONATE 10% 1 GM in SOD CHLORIDE 0.9% 100 ML IVPB ONE (03:30)
[2017-02-16] MEDS: PHENYLephrine 20MG IN 250 ML 250 ML IV SCH ×3 (04:16→10:39)
[2017-02-16] MEDS: PIPER-TAZO 3.375 GM IV (PMX) 100 ML IVPB SCH (05:37)
[2017-02-16] MEDS: PANTOPRAZOLE 40 MG INJ IV SCH (05:38)
[2017-02-16] MEDS: ACETAMINOPHEN 650MG/20.3ML CUP PO SCH ×2 (05:38→12:00)
[2017-02-16 07:26] LABS: ADD SCAN DIFF NO
[2017-02-16 07:30] LABS: ABNORMAL IP MESSAGE 1; BASOPHILS % 0.1 % (0.0-2.0); HEMATOCRIT 30.4 % (42.0-52.0); HEMOGLOBIN 10.3 g/dl (14.0-18.0); LYMPHOCYTES # 1.2 10^3/ul (0.8-2.9); LYMPHOCYTES % 10.1 % (15.0-51.0); MEAN CORPUSCULAR HGB CONC 33.9 g/dl (32.0-37.0); MEAN CORPUSCULAR VOLUME 97.4 fl (82.0-101.0); MEAN PLATELET VOLUME 11.7 fl (7.4-10.4); MONOCYTES % 8.2 % (0.0-11.0); NEUTROPHIL # 9.6 10^3/ul (1.6-7.5); NEUTROPHILS % 81.3 % (39.0-77.0); PLATELET COUNT 75 10^3/UL (140-415); RED BLOOD COUNT 3.12 10^6/ul (4.70-6.10); RED CELL DISTRIBUTION WIDTH 14.2 % (11.5-14.5); WHITE BLOOD COUNT 11.9 10^3/ul (4.8-10.8)
[2017-02-16 07:47] LABS: AADO2 Arterial 142.6 mmHg (7.0-24.0); Allen Test ACCEPTAB; Arterial Base Excess -6.6 mmol/L (-3.0-3); Arterial COHb 0.3 % (0.0-3.0); Arterial Fraction of Oxyhgb 97.9 % (93.0-99.0); Arterial HCO3 16.4 mmol/L (22.0-26.0); Arterial MetHb 0.1 % (0.0-1.5); Arterial Total Hemglobin 11.6 g/dl (12.0-18.0); MODE VENT - AC
[2017-02-16 08:07] LABS: INR 1.15; PROTIME 14.7 Sec (12.2-14.2); PT RATIO 1.1
[2017-02-16 08:08] LABS: PARTIAL THROMBOPLASTIN TIME 34.4 Sec (25.0-35.0)
[2017-02-16 08:10] LABS: CALCIUM 7.2 mg/dl (8.4-10.2); CREATININE 2.05 mg/dl (0.61-1.24); PHOSPHORUS 3.8 mg/dl (2.5-4.9); POTASSIUM 3.8 mmol/L (3.5-5.1)
[2017-02-16] MEDS: AZITHROMYCIN 500 MG in SOD CHLORIDE 0.9% 250 ML IVPB SCH (09:07)
[2017-02-16] MEDS: ASPIRIN 300 MG SUPP PR SCH (09:07)
[2017-02-16] MEDS ORDERED: VANCOMYCIN 1 GM in NS 250 ML IVPB SCH ×2 (11:00→23:00)
[2017-02-16] MEDS ORDERED: DEXTROSE 50% 50 ML SYRINGE IV PRN ×2 (11:30)
[2017-02-16] MEDS ORDERED: GLUCOSE GEL 15 GRAM TUBE BUCCAL PRN (11:30)
[2017-02-16] MEDS ORDERED: GLUCAGON 1 MG INJ IM PRN (11:30)
[2017-02-16] MEDS ORDERED: GLUCOSE GEL 15 GRAM TUBE PO PRN ×2 (11:30)
--- NOTE | 2017-02-16 12:34 | CONS ---
Date/Time of Note Date/Time of Note DATE: 02/16/17 TIME: 12:30 Consult Date/Type/Reason Admit Date/Time Feb 14, 2017 at 16:02 Initial Consult Date Type of Consultation: Pulm/CCM Subjective Now off hypothermia protocol. Moves, however, not able to follow commands. UO low. On levophed and neosynephrine gtt Objective Vital Signs Date Time Temp Pulse Resp B/P Pulse Ox O2 Delivery O2 Flow Rate FiO2 02/16/17 11:05 75 28 99 40 02/16/17 10:45 111/83 02/16/17 10:00 Mechanical Ventilator 02/16/17 08:00 98.6 Intake and Output 02/15/17 02/15/17 02/16/17 15:00 23:00 07:00 Intake Total 1483.740 ml 2259.15 ml 3552.77 ml Output Total 265 ml 177 ml 122 ml Balance 1218.740 ml 2082.15 ml 3430.77 ml Exam HEENT: Neck supple; no JVD; no LAD; + ET tube CVS: RRR, S1 and S2, + S3; 2/6 JENS CHEST: Clear ABD: Soft, NT, + BS EXT: No c/c/e Results/Medications Result Diagram: 02/16/17 0647 02/16/17 0647 Results 24 hrs Laboratory Tests Test 02/15/17 13:04 02/15/17 13:30 02/15/17 14:21 02/15/17 15:03 Bedside Glucose 163 151 161 White Blood Count 9.6 Red Blood Count 3.35 L Hemoglobin 11.0 L Hematocrit 33.7 L Mean Corpuscular Volume 100.6 Mean Corpuscular Hemoglobin 32.8 Mean Corpuscular Hemoglobin Concent 32.6 Red Cell Distribution Width 13.8 Platelet Count 79 L Mean Platelet Volume 10.5 H Neutrophils % 78.0 H Band Neutrophils % 4.0 Lymphocytes % 11.0 L Monocytes % 6.0 Eosinophils % 1.0 Neutrophils # 7.5 Lymphocytes # 1.1 Monocytes # 0.6 Eosinophils # 0.1 Platelet Estimate PLT APPEAR DECREASED Macrocytosis 1+ Prothrombin Time 14.8 H Prothrombin Time Ratio 1.2 INR International Normalized Ratio 1.16 Activated Partial Thromboplast Time 33.5 Sodium Level 140 Potassium Level 3.9 Chloride Level 113 H Carbon Dioxide Level 17 L Anion Gap 14 Blood Urea Nitrogen 41 H Creatinine 1.68 H Glucose Level 166 Calcium Level 7.4 L Phosphorus Level 3.0 Magnesium Level 2.0 Amylase Level 412 H Lipase 130 Test 02/15/17 16:05 02/15/17 17:11 02/15/17 17:37 02/15/17 18:11 Bedside Glucose 121 156 139 Blood Gas Specimen Source Blood arterial Arterial Blood Date Drawn 02/15/2017 9:14:10 PM Arterial Blood pH (Temp corrected) 7.438 Arterial Blood pCO2 (Temp correct) 22.7 L Arterial Blood pO2 (Temp corrected) 134.4 H Arterial Blood HCO3 15.5 L Arterial Blood Base Excess -7.9 L Arterial Blood Oxygen Saturation 98.4 Chris Test ACCEPTAB Arterial Blood Gas Puncture Site Right Brachial Arterial Blood Carboxyhemoglobin 0.3 Arterial Blood Methemoglobin 0.3 Blood Gas A-a O2 Differential 200.2 H Oxyhemoglobin Percent 97.8 Total Hemoglobin 11.9 L Blood Gas Temperature 34.0 Blood Gas Respiration Rate 28.0 Blood Gas Actual Respiration Rate 28 Blood Gas Modality VENT - AC FiO2 50.0 Blood Gas Tidal Volume 500.0 Blood Gas Low PEEP Setting 8.0 Blood Gas Notified Whom Ade [employer] Blood Gas Notified Time 02/15/2017 9:24:55 PM Test 02/15/17 18:35 02/15/17 19:26 02/15/17 19:29 02/15/17 20:03 White Blood Count 15.2 #H Red Blood Count 3.63 L Hemoglobin 12.1 L Hematocrit 36.4 L Mean Corpuscular Volume 100.3 Mean Corpuscular Hemoglobin 33.3 H Mean Corpuscular Hemoglobin Concent 33.2 Red Cell Distribution Width 13.9 Platelet Count 84 L Mean Platelet Volume 10.8 H Neutrophils % 75.7 Lymphocytes % 12.2 L Monocytes % 11.0 Eosinophils % 0.1 Basophils % 0.2 Nucleated Red Blood Cells % 0.0 Neutrophils # 11.5 H Lymphocytes # 1.9 Monocytes # 1.7 H Eosinophils # 0.0 Basophils # 0.0 Nucleated Red Blood Cells # 0.0 Prothrombin Time 14.0 Prothrombin Time Ratio 1.1 INR International Normalized Ratio 1.08 Activated Partial Thromboplast Time 30.8 Sodium Level 140 Potassium Level 3.6 Chloride Level 112 H Carbon Dioxide Level 17 L Anion Gap 15 Blood Urea Nitrogen 43 H Creatinine 1.78 H Glucose Level 151 Calcium Level 7.3 L Phosphorus Level 3.0 Magnesium Level 1.8 Amylase Level 365 H Lipase 90 Bedside Glucose 131 149 Test 02/15/17 21:40 02/15/17 22:43 02/15/17 23:37 02/16/17 00:16 Bedside Glucose 124 116 89 Blood Gas Specimen Source Blood arterial Arterial Blood Date Drawn 02/14/2017 11:30:17 PM Arterial Blood pH (Temp corrected) 7.209 *L Arterial Blood pCO2 (Temp correct) 33.4 L Arterial Blood pO2 (Temp corrected) 83.1 Arterial Blood HCO3 13.7 L Arterial Blood Base Excess -14.2 L Arterial Blood Oxygen Saturation 96.2 Chris Test ACCEPTAB Arterial Blood Gas Puncture Site Right Radial Arterial Blood Carboxyhemoglobin 0.3 Arterial Blood Methemoglobin 0.3 Blood Gas A-a O2 Differential 459.5 H Oxyhemoglobin Percent 95.6 Total Hemoglobin 12.2 Blood Gas Temperature 33.2 Blood Gas Respiration Rate 25.0 Blood Gas Actual Respiration Rate 25 Blood Gas Modality VENT - AC FiO2 80.0 Blood Gas Tidal Volume 450.0 Blood Gas Low PEEP Setting 10.0 Blood Gas Critical Value Read Back T AVILA BROWN RN Blood Gas Notified Whom UP Blood Gas Notified Time 02/14/2017 11:40:41 PM Test 02/16/17 00:30 02/16/17 01:06 02/16/17 02:14 02/16/17 02:56 White Blood Count 10.1 # Red Blood Count 3.13 L Hemoglobin 10.3 L Hematocrit 30.3 L Mean Corpuscular Volume 96.8 Mean Corpuscular Hemoglobin 32.9 Mean Corpuscular Hemoglobin Concent 34.0 Red Cell Distribution Width 14.0 Platelet Count 74 L Mean Platelet Volume 10.9 H Neutrophils % 78.6 H Lymphocytes % 11.4 L Monocytes % 9.6 Eosinophils % 0.0 Basophils % 0.1 Nucleated Red Blood Cells % 0.0 Neutrophils # 8.0 H Lymphocytes # 1.2 Monocytes # 1.0 H Eosinophils # 0.0 Basophils # 0.0 Nucleated Red Blood Cells # 0.0 Prothrombin Time 14.6 H Prothrombin Time Ratio 1.1 INR International Normalized Ratio 1.14 Activated Partial Thromboplast Time 34.4 Sodium Level 137 Potassium Level 3.7 Chloride Level 114 H Carbon Dioxide Level 17 L Anion Gap 10 # Blood Urea Nitrogen 43 H Creatinine 1.85 H Glucose Level 113 Calcium Level 6.9 L Phosphorus Level 3.3 Magnesium Level 1.7 Amylase Level 354 H Lipase 77 Bedside Glucose 104 124 125 Test 02/16/17 04:14 02/16/17 05:00 02/16/17 05:07 02/16/17 05:54 Bedside Glucose 111 126 125 Blood Gas Specimen Source Blood arterial Arterial Blood Date Drawn 02/16/2017 4:19:36 AM Arterial Blood pH (Temp corrected) 7.421 Arterial Blood pCO2 (Temp correct) 25.8 L Arterial Blood pO2 (Temp corrected) 184.9 H Arterial Blood HCO3 16.4 L Arterial Blood Base Excess -6.6 L Arterial Blood Oxygen Saturation 98.3 Chris Test ACCEPTAB Arterial Blood Gas Puncture Site Right Radial Arterial Blood Carboxyhemoglobin 0.3 Arterial Blood Methemoglobin 0.1 Blood Gas A-a O2 Differential 142.6 H Oxyhemoglobin Percent 97.9 Total Hemoglobin 11.6 L Blood Gas Temperature 37.0 Blood Gas Respiration Rate 28.0 Blood Gas Actual Respiration Rate 28 Blood Gas Modality VENT - AC FiO2 50.0 Blood Gas Tidal Volume 500.0 Blood Gas Low PEEP Setting 8.0 Blood Gas Notified Whom LW Blood Gas Notified Time 02/16/2017 4:30:30 AM Test 02/16/17 06:47 02/16/17 09:08 02/16/17 10:37 White Blood Count 11.9 H Red Blood Count 3.12 L Hemoglobin 10.3 L Hematocrit 30.4 L Mean Corpuscular Volume 97.4 Mean Corpuscular Hemoglobin 33.0 Mean Corpuscular Hemoglobin Concent 33.9 Red Cell Distribution Width 14.2 Platelet Count 75 L Mean Platelet Volume 11.7 H Neutrophils % 81.3 H Lymphocytes % 10.1 L Monocytes % 8.2 Eosinophils % 0.0 Basophils % 0.1 Nucleated Red Blood Cells % 0.0 Neutrophils # 9.6 H Lymphocytes # 1.2 Monocytes # 1.0 H Eosinophils # 0.0 Basophils # 0.0 Nucleated Red Blood Cells # 0.0 Prothrombin Time 14.7 H Prothrombin Time Ratio 1.1 INR International Normalized Ratio 1.15 Activated Partial Thromboplast Time 34.4 Sodium Level 138 Potassium Level 3.8 Chloride Level 114 H Carbon Dioxide Level 17 L Anion Gap 11 Blood Urea Nitrogen 44 H Creatinine 2.05 H Glucose Level 121 Bedside Glucose 121 136 136 Lactic Acid Level 2.7 H Calcium Level 7.2 L Phosphorus Level 3.8 Magnesium Level 2.0 Amylase Level 338 H Lipase 78 Medications Current Medications Fentanyl 25 mcg 25 mcg Q10M PRN IV SEDATION; Start 02/14/17 at 12:30 Sodium Chloride (NS) 1,000 ml @ 100 mls/hr Q10H IV Last administered on 18:27; Admin Dose 100 MLS/HR; Start 02/14/17 at 15:57; Status Future Hold Ondansetron HCl (Zofran Inj) 4 mg Q6H PRN IV NAUSEA AND/OR VOMITING; Start 02/14 at 16:00 Morphine Sulfate (morphine) 2 mg Q4H PRN IV SEVERE PAIN LEVEL 7-10; Start at 16:00 Pantoprazole 40 mg 40 mg DAILY@06 IV Last administered on 02/16/17 05:38; Admin Dose 40 MG; Start 02/15/17 at 06:00 Amiodarone HCl/ Dextrose (Cordarone Iv/ D5W) 500 ml @ 0 mls/hr Q0M IV Last administered on 02/14/17 17:51; Admin Dose 33.3 MLS/HR; Start 02/14/17 at 17:00; Status Future Hold Acetaminophen (Tylenol Supp) 650 mg Q4H PRN OK TEMP > 37C; Start 02/14/17 at 18: 00 Acetaminophen (Tylenol Liquid) 650 mg Q4H PRN PO TEMP > 37C; Start 02/14/17 at 18:00 Acetaminophen (Tylenol Liquid) 500 mg Q6H PO Last administered on 02/16/17 05: 38; Admin Dose 500 MG; Start 02/15/17 at 18:00 Meperidine HCl (Demerol) 12.5 mg Q4H PRN IV POST OPERATIVE SHIVERING; Start 02/14/17 at 18:00 Meperidine HCl (Demerol) 25 mg Q4H PRN IV POST OPERATIVE SHIVERING; Start at 18:00 Eye Lubricant (Akwa Oint) 1 applic Q6 BOTH EYES Last administered on 02/16/17 12:05; Admin Dose 1 APPLIC; Start 02/14/17 at 18:00 Eye Lubricant (Artificial Tears Oph) 2 drop Q6 BOTH EYES Last administered on 12:05; Admin Dose 2 DROP; Start 02/14/17 at 18:00 Diagnostic Test (Pha) 1 ea 1 ea Q1H XX Last administered on 02/16/17 09:10; Admin Dose 1 EA; Start 02/14/17 at 18:00 Vecuronium [place] 100 mg/ Dextrose 100 ml @ 4.2 mls/hr [id number] IV Last administered on 02/15/17 17:29; Admin Dose 1.75 MLS/HR; Start 02/14/17 at 18:31 Norepinephrine 16 mg/Dextrose 500 ml @ 0 mls/hr TITRATE IV Last administered on 02/16/17 05:50; Admin Dose 37.5 MLS/HR; Start 02/14/17 at 22:00 Azithromycin 500 mg/Sodium Chloride 250 ml @ 250 mls/hr DAILY IVPB Last administered on 02/16/17 09:07; Admin Dose 250 MLS/HR; Start 02/15/17 at 10:00 Sodium Bicarbonate/ Dextrose (Na Bicarb/D5W) 1,150 ml @ 100 mls/hr [id number] IV Last administered on 02/15/17 21:45; Admin Dose 100 MLS/HR; Start 02/15/17 at 10: 00 Aspirin (Aspirin) 300 mg DAILY OK Last administered on 02/16/17 09:07; Admin Dose 300 MG; Start 02/15/17 at 11:00 Acetaminophen 500 mg 500 mg Q6H OK Last administered on 02/16/17 02:17; Admin Dose 500 MG; Start 02/15/17 at 20:30 Phenylephrine HCl/ Dextrose (Fritz-Syneph/D5W) 500 ml @ 75 mls/hr TITRATE IV ; Start 02/16/17 at 03:30 Insulin Aspart (Novolog Insulin Pen) NOVOLOG *MILD* ALGORI... Q4 SC ; Start 02/16 at 13:00 Miscellaneous Information 1 ea NOTE XX ; Start 02/16/17 at 11:30 Glucose (Glutose) 15 gm Q15M PRN PO DECREASED GLUCOSE; Start 02/16/17 at 11:30 Glucose (Glutose) 22.5 gm Q15M PRN PO DECREASED GLUCOSE; Start 02/16/17 at 11:30 Dextrose (D50w Syringe) 25 ml Q15M PRN IV DECREASED GLUCOSE; Start 02/16/17 at 11:30 Dextrose (D50w Syringe) 50 ml Q15M PRN IV DECREASED GLUCOSE; Start 02/16/17 at 11:30 Glucagon (Glucagen) 1 mg Q15M PRN IM DECREASED GLUCOSE; Start 02/16/17 at 11:30 Glucose (Glutose) 15 gm Q15M PRN BUCCAL DECREASED GLUCOSE; Start 02/16/17 at 11: 30 Miscellaneous Information RANDOM VANCOMYCIN LEVEL 7... ONCE ONCE XX ; Start 05/27 at 05:00; Stop 02/17/17 at 05:01 Piperacillin Sod/ Tazobactam Sod (Zosyn 2.25gm/ 50ml (Pmx)) 50 ml @ 100 mls/hr Q6 IVPB ; Start 02/16/17 at 18:00 Assessment/Plan Chief Complaint/Hosp Course Briefly, this is a 76-year-old male whose past medical history is unknown, who was found on a sidewalk bench unresponsive. No bystander CPR was performed. EMS was called and patient initially in PEA. Patient was brought to the emergency room with continual ACLS protocol. Patient was defibrillated multiple times secondary to VF/VT. patient did regain spontaneous circulation. Patient with evidence of pneumothorax as well and chest tubes placed. Patient currently on hypothermia protocol and unresponsive to verbal or tactile stimuli. Problems: Additional Assessment/Plan IMP: 1. Cardiopulmonary Arrest: query primary cardiac event leading to respiratory failure and multilobar aspiration pneumonia or visa versa. 2. Respiratory Failure/Vent 3. Multifocal pneumonia--likely aspiration 4. s/p VF 5. ARF 6. Barotrauma--s/p CPR 7. Hypoglycemia 8. Shock RECS: 1. Vent support 2. Continue NaHCO3 gtt 3. Titrate off neosynephrine gtt as it will impair afterload in setting of low EF 4. Levophed to MAP > 65 mm Hg; add vasopressin 5. Follow-up Cxs 6. Will need to assess mental status for anoxic brain injury post rewarming 7. Broad spectrum abx 8. Follow renal fxn 9. Prognosis very poor 10. Advance ET tube 2 cm 40 min cc time FRANKO GRANADOS MD Feb 16, 2017 12:33
[2017-02-16 12:38] LABS: ADD SCAN DIFF NO
[2017-02-16 12:55] LABS: INR 1.22; PARTIAL THROMBOPLASTIN TIME 33.7 Sec (25.0-35.0); PROTIME 15.5 Sec (12.2-14.2); PT RATIO 1.2
[2017-02-16] MEDS: VASOPRESSIN 60 UNIT in DEXTROSE 5% 57 ML IV SCH (13:00)
[2017-02-16] MEDS: SODIUM BICARBONATE (IV ADD) 150 MEQ in DEXTROSE 5% 1,000 ML IV SCH (13:02)
[2017-02-16 13:04] LABS: CREATININE 2.24 mg/dl (0.61-1.24); MAGNESIUM 1.9 mg/dl (1.7-2.5); PHOSPHORUS 4.3 mg/dl (2.5-4.9); POTASSIUM 3.7 mmol/L (3.5-5.1)
[2017-02-16] MEDS: INSULIN ASPART [NOVOLOG] 3 ML PEN SC SCH ×3 (13:10→20:59)
--- NOTE | 2017-02-16 13:12 | CONS ---
Date/Time of Note Date/Time of Note DATE: 02/16/17 TIME: 13:02 Assessment/Plan Assessment/Plan Additional Assessment/Plan Cardiopulmonary arrest Septic shock Vent dependent respiratory failure Cardiomyopathy Non-ST elevation [place] Acute kidney injury -Patient status post hypothermia protocol. Continue to titrate IV pressors. Continue aspirin, start statin therapy, enteric feeding if no contraindication. Consultation Date/Type/Reason Admit Date/Time Feb 14, 2017 at 16:02 Initial Consult Date Type of Consultation: cv 24 HR Interval Summary Free Text/Dictation Patient status post hypothermia protocol. Remains intubated and on IV pressors. Occasional movements when name is called Exam/Review of Systems Vital Signs Vitals Vital Signs Date Time Temp Pulse Resp B/P Pulse Ox O2 Delivery O2 Flow Rate FiO2 02/16/17 11:05 75 28 99 40 02/16/17 10:45 111/83 02/16/17 10:00 Mechanical Ventilator 02/16/17 08:00 98.6 Intake and Output 02/15/17 02/15/17 02/16/17 15:00 23:00 07:00 Intake Total 1483.740 ml 2259.15 ml 3552.77 ml Output Total 265 ml 177 ml 122 ml Balance 1218.740 ml 2082.15 ml 3430.77 ml Exam Intubated, moves head when name is called. No apparent distress Head: normocephalic ENMT: intubated Respiratory: other (Coarse breath sounds bilaterally, no wheezing) Cardiovascular: other (S1-S2 heard), regular rate and rhythm Gastrointestinal: bowel sounds, non-tender, soft Extremities: other (No edema) Results Result Diagram: 02/16/17 0647 02/16/17 0647 Results 24 hrs Laboratory Tests Test 02/15/17 13:04 02/15/17 13:30 02/15/17 14:21 02/15/17 15:03 Bedside Glucose 163 151 161 White Blood Count 9.6 Red Blood Count 3.35 L Hemoglobin 11.0 L Hematocrit 33.7 L Mean Corpuscular Volume 100.6 Mean Corpuscular Hemoglobin 32.8 Mean Corpuscular Hemoglobin Concent 32.6 Red Cell Distribution Width 13.8 Platelet Count 79 L Mean Platelet Volume 10.5 H Neutrophils % 78.0 H Band Neutrophils % 4.0 Lymphocytes % 11.0 L Monocytes % 6.0 Eosinophils % 1.0 Neutrophils # 7.5 Lymphocytes # 1.1 Monocytes # 0.6 Eosinophils # 0.1 Platelet Estimate PLT APPEAR DECREASED Macrocytosis 1+ Prothrombin Time 14.8 H Prothrombin Time Ratio 1.2 INR International Normalized Ratio 1.16 Activated Partial Thromboplast Time 33.5 Sodium Level 140 Potassium Level 3.9 Chloride Level 113 H Carbon Dioxide Level 17 L Anion Gap 14 Blood Urea Nitrogen 41 H Creatinine 1.68 H Glucose Level 166 Calcium Level 7.4 L Phosphorus Level 3.0 Magnesium Level 2.0 Amylase Level 412 H Lipase 130 Test 02/15/17 16:05 02/15/17 17:11 02/15/17 17:37 02/15/17 18:11 Bedside Glucose 121 156 139 Blood Gas Specimen Source Blood arterial Arterial Blood Date Drawn 02/15/2017 9:14:10 PM Arterial Blood pH (Temp corrected) 7.438 Arterial Blood pCO2 (Temp correct) 22.7 L Arterial Blood pO2 (Temp corrected) 134.4 H Arterial Blood HCO3 15.5 L Arterial Blood Base Excess -7.9 L Arterial Blood Oxygen Saturation 98.4 Chris Test ACCEPTAB Arterial Blood Gas Puncture Site Right Brachial Arterial Blood Carboxyhemoglobin 0.3 Arterial Blood Methemoglobin 0.3 Blood Gas A-a O2 Differential 200.2 H Oxyhemoglobin Percent 97.8 Total Hemoglobin 11.9 L Blood Gas Temperature 34.0 Blood Gas Respiration Rate 28.0 Blood Gas Actual Respiration Rate 28 Blood Gas Modality VENT - AC FiO2 50.0 Blood Gas Tidal Volume 500.0 Blood Gas Low PEEP Setting 8.0 Blood Gas Notified Whom Ade [employer] Blood Gas Notified Time 02/15/2017 9:24:55 PM Test 02/15/17 18:35 02/15/17 19:26 02/15/17 19:29 02/15/17 20:03 White Blood Count 15.2 #H Red Blood Count 3.63 L Hemoglobin 12.1 L Hematocrit 36.4 L Mean Corpuscular Volume 100.3 Mean Corpuscular Hemoglobin 33.3 H Mean Corpuscular Hemoglobin Concent 33.2 Red Cell Distribution Width 13.9 Platelet Count 84 L Mean Platelet Volume 10.8 H Neutrophils % 75.7 Lymphocytes % 12.2 L Monocytes % 11.0 Eosinophils % 0.1 Basophils % 0.2 Nucleated Red Blood Cells % 0.0 Neutrophils # 11.5 H Lymphocytes # 1.9 Monocytes # 1.7 H Eosinophils # 0.0 Basophils # 0.0 Nucleated Red Blood Cells # 0.0 Prothrombin Time 14.0 Prothrombin Time Ratio 1.1 INR International Normalized Ratio 1.08 Activated Partial Thromboplast Time 30.8 Sodium Level 140 Potassium Level 3.6 Chloride Level 112 H Carbon Dioxide Level 17 L Anion Gap 15 Blood Urea Nitrogen 43 H Creatinine 1.78 H Glucose Level 151 Calcium Level 7.3 L Phosphorus Level 3.0 Magnesium Level 1.8 Amylase Level 365 H Lipase 90 Bedside Glucose 131 149 Test 02/15/17 21:40 02/15/17 22:43 02/15/17 23:37 02/16/17 00:16 Bedside Glucose 124 116 89 Blood Gas Specimen Source Blood arterial Arterial Blood Date Drawn 02/14/2017 11:30:17 PM Arterial Blood pH (Temp corrected) 7.209 *L Arterial Blood pCO2 (Temp correct) 33.4 L Arterial Blood pO2 (Temp corrected) 83.1 Arterial Blood HCO3 13.7 L Arterial Blood Base Excess -14.2 L Arterial Blood Oxygen Saturation 96.2 Chris Test ACCEPTAB Arterial Blood Gas Puncture Site Right Radial Arterial Blood Carboxyhemoglobin 0.3 Arterial Blood Methemoglobin 0.3 Blood Gas A-a O2 Differential 459.5 H Oxyhemoglobin Percent 95.6 Total Hemoglobin 12.2 Blood Gas Temperature 33.2 Blood Gas Respiration Rate 25.0 Blood Gas Actual Respiration Rate 25 Blood Gas Modality VENT - AC FiO2 80.0 Blood Gas Tidal Volume 450.0 Blood Gas Low PEEP Setting 10.0 Blood Gas Critical Value Read Back T AVILA BROWN RN Blood Gas Notified Whom UP Blood Gas Notified Time 02/14/2017 11:40:41 PM Test 02/16/17 00:30 02/16/17 01:06 02/16/17 02:14 02/16/17 02:56 White Blood Count 10.1 # Red Blood Count 3.13 L Hemoglobin 10.3 L Hematocrit 30.3 L Mean Corpuscular Volume 96.8 Mean Corpuscular Hemoglobin 32.9 Mean Corpuscular Hemoglobin Concent 34.0 Red Cell Distribution Width 14.0 Platelet Count 74 L Mean Platelet Volume 10.9 H Neutrophils % 78.6 H Lymphocytes % 11.4 L Monocytes % 9.6 Eosinophils % 0.0 Basophils % 0.1 Nucleated Red Blood Cells % 0.0 Neutrophils # 8.0 H Lymphocytes # 1.2 Monocytes # 1.0 H Eosinophils # 0.0 Basophils # 0.0 Nucleated Red Blood Cells # 0.0 Prothrombin Time 14.6 H Prothrombin Time Ratio 1.1 INR International Normalized Ratio 1.14 Activated Partial Thromboplast Time 34.4 Sodium Level 137 Potassium Level 3.7 Chloride Level 114 H Carbon Dioxide Level 17 L Anion Gap 10 # Blood Urea Nitrogen 43 H Creatinine 1.85 H Glucose Level 113 Calcium Level 6.9 L Phosphorus Level 3.3 Magnesium Level 1.7 Amylase Level 354 H Lipase 77 Bedside Glucose 104 124 125 Test 02/16/17 04:14 02/16/17 05:00 02/16/17 05:07 02/16/17 05:54 Bedside Glucose 111 126 125 Blood Gas Specimen Source Blood arterial Arterial Blood Date Drawn 02/16/2017 4:19:36 AM Arterial Blood pH (Temp corrected) 7.421 Arterial Blood pCO2 (Temp correct) 25.8 L Arterial Blood pO2 (Temp corrected) 184.9 H Arterial Blood HCO3 16.4 L Arterial Blood Base Excess -6.6 L Arterial Blood Oxygen Saturation 98.3 Chris Test ACCEPTAB Arterial Blood Gas Puncture Site Right Radial Arterial Blood Carboxyhemoglobin 0.3 Arterial Blood Methemoglobin 0.1 Blood Gas A-a O2 Differential 142.6 H Oxyhemoglobin Percent 97.9 Total Hemoglobin 11.6 L Blood Gas Temperature 37.0 Blood Gas Respiration Rate 28.0 Blood Gas Actual Respiration Rate 28 Blood Gas Modality VENT - AC FiO2 50.0 Blood Gas Tidal Volume 500.0 Blood Gas Low PEEP Setting 8.0 Blood Gas Notified Whom LW Blood Gas Notified Time 02/16/2017 4:30:30 AM Test 02/16/17 06:47 02/16/17 09:08 02/16/17 10:37 02/16/17 12:20 White Blood Count 11.9 H Red Blood Count 3.12 L Hemoglobin 10.3 L Hematocrit 30.4 L Mean Corpuscular Volume 97.4 Mean Corpuscular Hemoglobin 33.0 Mean Corpuscular Hemoglobin Concent 33.9 Red Cell Distribution Width 14.2 Platelet Count 75 L Mean Platelet Volume 11.7 H Neutrophils % 81.3 H Lymphocytes % 10.1 L Monocytes % 8.2 Eosinophils % 0.0 Basophils % 0.1 Nucleated Red Blood Cells % 0.0 Neutrophils # 9.6 H Lymphocytes # 1.2 Monocytes # 1.0 H Eosinophils # 0.0 Basophils # 0.0 Nucleated Red Blood Cells # 0.0 Prothrombin Time 14.7 H 15.5 H Prothrombin Time Ratio 1.1 1.2 INR International Normalized Ratio 1.15 1.22 Activated Partial Thromboplast Time 34.4 33.7 Sodium Level 138 Potassium Level 3.8 Chloride Level 114 H Carbon Dioxide Level 17 L Anion Gap 11 Blood Urea Nitrogen 44 H Creatinine 2.05 H Glucose Level 121 Bedside Glucose 121 136 136 Lactic Acid Level 2.7 H Calcium Level 7.2 L Phosphorus Level 3.8 Magnesium Level 2.0 Amylase Level 338 H Lipase 78 Medications Medications Current Medications Fentanyl 25 mcg 25 mcg Q10M PRN IV SEDATION; Start 02/14/17 at 12:30 Sodium Chloride (NS) 1,000 ml @ 100 mls/hr Q10H IV Last administered on 18:27; Admin Dose 100 MLS/HR; Start 02/14/17 at 15:57; Status Future Hold Ondansetron HCl (Zofran Inj) 4 mg Q6H PRN IV NAUSEA AND/OR VOMITING; Start 02/14 at 16:00 Morphine Sulfate (morphine) 2 mg Q4H PRN IV SEVERE PAIN LEVEL 7-10; Start at 16:00 Pantoprazole 40 mg 40 mg DAILY@06 IV Last administered on 02/16/17 05:38; Admin Dose 40 MG; Start 02/15/17 at 06:00 Amiodarone HCl/ Dextrose (Cordarone Iv/ D5W) 500 ml @ 0 mls/hr Q0M IV Last administered on 02/14/17 17:51; Admin Dose 33.3 MLS/HR; Start 02/14/17 at 17:00; Status Future Hold Acetaminophen (Tylenol Supp) 650 mg Q4H PRN [place] TEMP > 37C; Start 02/14/17 at 18: 00 Acetaminophen (Tylenol Liquid) 650 mg Q4H PRN PO TEMP > 37C; Start 02/14/17 at 18:00 Acetaminophen (Tylenol Liquid) 500 mg Q6H PO Last administered on 02/16/17 05: 38; Admin Dose 500 MG; Start 02/15/17 at 18:00 Meperidine HCl (Demerol) 12.5 mg Q4H PRN IV POST OPERATIVE SHIVERING; Start 02/14/17 at 18:00 Meperidine HCl (Demerol) 25 mg Q4H PRN IV POST OPERATIVE SHIVERING; Start at 18:00 Eye Lubricant (Akwa Oint) 1 applic Q6 BOTH EYES Last administered on 02/16/17 12:05; Admin Dose 1 APPLIC; Start 02/14/17 at 18:00 Eye Lubricant (Artificial Tears Oph) 2 drop Q6 BOTH EYES Last administered on 12:05; Admin Dose 2 DROP; Start 02/14/17 at 18:00 Diagnostic Test (Pha) 1 ea 1 ea Q1H XX Last administered on 02/16/17 09:10; Admin Dose 1 EA; Start 02/14/17 at 18:00 Vecuronium [place] 100 mg/ Dextrose 100 ml @ 4.2 mls/hr [id number] IV Last administered on 02/15/17 17:29; Admin Dose 1.75 MLS/HR; Start 02/14/17 at 18:31 Norepinephrine 16 mg/Dextrose 500 ml @ 0 mls/hr TITRATE IV Last administered on 02/16/17 05:50; Admin Dose 37.5 MLS/HR; Start 02/14/17 at 22:00 Azithromycin 500 mg/Sodium Chloride 250 ml @ 250 mls/hr DAILY IVPB Last administered on 02/16/17 09:07; Admin Dose 250 MLS/HR; Start 02/15/17 at 10:00 Sodium Bicarbonate/ Dextrose (Na Bicarb/D5W) 1,150 ml @ 100 mls/hr [id number] IV Last administered on 02/15/17 21:45; Admin Dose 100 MLS/HR; Start 02/15/17 at 10: 00 Aspirin (Aspirin) 300 mg DAILY [place] Last administered on 02/16/17 09:07; Admin Dose 300 MG; Start 02/15/17 at 11:00 Acetaminophen 500 mg 500 mg Q6H [place] Last administered on 02/16/17 02:17; Admin Dose 500 MG; Start 02/15/17 at 20:30 Phenylephrine HCl/ Dextrose (Fritz-Syneph/D5W) 500 ml @ 75 mls/hr TITRATE IV ; Start 02/16/17 at 03:30 Insulin Aspart (Novolog Insulin Pen) NOVOLOG *MILD* ALGORI... Q4 SC ; Start 02/16 at 13:00 Miscellaneous Information 1 ea NOTE XX ; Start 02/16/17 at 11:30 Glucose (Glutose) 15 gm Q15M PRN PO DECREASED GLUCOSE; Start 02/16/17 at 11:30 Glucose (Glutose) 22.5 gm Q15M PRN PO DECREASED GLUCOSE; Start 02/16/17 at 11:30 Dextrose (D50w Syringe) 25 ml Q15M PRN IV DECREASED GLUCOSE; Start 02/16/17 at 11:30 Dextrose (D50w Syringe) 50 ml Q15M PRN IV DECREASED GLUCOSE; Start 02/16/17 at 11:30 Glucagon (Glucagen) 1 mg Q15M PRN IM DECREASED GLUCOSE; Start 02/16/17 at 11:30 Glucose (Glutose) 15 gm Q15M PRN BUCCAL DECREASED GLUCOSE; Start 02/16/17 at 11: 30 Miscellaneous Information RANDOM VANCOMYCIN LEVEL 7... ONCE ONCE XX ; Start 05/27 at 05:00; Stop 02/17/17 at 05:01 Piperacillin Sod/ Tazobactam Sod 50 ml @ 100 mls/hr Q6 IVPB ; Start 02/16/17 at 18:00 Vasopressin/ Dextrose (Vasostrict/D5W) 60 ml @ 1.8 mls/hr Q12H IV ; Start at 13:00 Casey Schuler DO Feb 16, 2017 13:12
[2017-02-16 13:13] LABS: ABNORMAL IP MESSAGE 1; BASOPHILS % 0.1 % (0.0-2.0); HEMATOCRIT 29.9 % (42.0-52.0); HEMOGLOBIN 10.4 g/dl (14.0-18.0); LYMPHOCYTES # 1.3 10^3/ul (0.8-2.9); LYMPHOCYTES % 9.5 % (15.0-51.0); MEAN CORPUSCULAR HEMOGLOBIN 33.9 pg (29.0-33.0); MEAN CORPUSCULAR HGB CONC 34.8 g/dl (32.0-37.0); MEAN CORPUSCULAR VOLUME 97.4 fl (82.0-101.0); MEAN PLATELET VOLUME 12.3 fl (7.4-10.4); MONOCYTE # 1.2 10^3/ul (0.3-0.9); MONOCYTES % 8.7 % (0.0-11.0); NEUTROPHILS % 81.3 % (39.0-77.0); PLATELET COUNT 72 10^3/UL (140-415); RED BLOOD COUNT 3.07 10^6/ul (4.70-6.10); RED CELL DISTRIBUTION WIDTH 14.5 % (11.5-14.5); WHITE BLOOD COUNT 13.5 10^3/ul (4.8-10.8)
--- NOTE | 2017-02-16 14:02 | RADRPT ---
PROCEDURE: XR Abdomen. CLINICAL INDICATION: Orogastric tube placement TECHNIQUE: Single AP view of the abdomen is available for review. COMPARISON: 02/15/2017 FINDINGS: Orogastric tube terminates the body of the stomach. Rectal probe terminates over midline pelvis. Right inguinal central venous catheter terminates in the right common iliac vein. Kissing the vascular stent is seen in the right femoral artery. The bowel gas pattern is normal. There is no evidence of obstruction. There are no abnormal calcifications overlying the urinary tracts. No free air identified. The osseous structures do not demonstrate acute abnormality. IMPRESSION: 1. No evidence of bowel obstruction, perforation or radiopaque calculi overlying the urinary tracts . 2. Satisfactory position orogastric tube. RPTAT: QQ .Giovani Gaxiola MD, Date Time Electronically viewed and signed by .Giovani Gaxiola MD, on 02/16/2017 14:02 .M/
--- NOTE | 2017-02-16 14:25 | RADRPT ---
Echocardiogram Report Patient Name: JAKE CEBALLOS Gender: Male Date: 1940 Study Date: 15-Feb-2017 Cath Lab Nurse: JOAN Location: E Weight(Kg): 70 Ref. Physician: GUILHERME YATES Quality: Adequate Procedures: Transthoracic echocardiogram examination. Indications: Cardiac Arrest. 2D/M Mode Doppler Measurement Value Normal Range Measurement Value Normal Range IVSd 2D 1.1 0.6 - 1.1 cm AV Peak Winston 0.7 m/sec LA Dimen 2D 2.3 2.3 - 4.0 cm AV Peak PG 2.1 mmHg LVOT Peak Winston 0.5 m/sec MV E Peak Winston 0.5 m/sec MV A Peak Winston 0.2 m/sec MV E/A 1.9 MV Decel Time 172 msec MV Decel Placer 3 MV E/A 1.9 TR Peak Winston 2.8 m/sec TR Peak PG 31.2 mmHg PV Peak Winston 0.6 m/sec PV Peak PG 2.0 mmHg RVSP 34.2 mmHg Findings Left Ventricle: Normal left ventricular cavity size. Severe left ventricular systolic dysfunction in limited views. Tissue Doppler/Mitral Doppler indices are most probably consistent with pseudonormalization with mildly elevated left atrial pressure (Stage II diastolic dysfunction), patient unable to Valsalva. Normal left ventricular wall thickness. The left ventricular ejection fraction is visually estimated at 20 %. Right Ventricle: Normal right ventricular size, RV apex is possibly akinetic. Left Atrium: The left atrium is normal in size and appearance. Right Atrium: The right atrium is normal in size and appearance. Mitral Valve: Normal appearance of the mitral valve leaflets. Mild mitral regurgitation. Aortic Valve: Normal appearance and function of the aortic valve. Mild aortic regurgitation. Tricuspid Valve: Normal appearance of the tricuspid valve. The estimated Peak PA Systolic Pressure is 34 mmHg. There is mild tricuspid regurgitation. Pulmonic Valve: Normal pulmonic valve appearance and function with trivial (physiologic) regurgitation. Pericardium: Normal pericardium with no significant pericardial effusion. Aorta: Normal aortic root, imaged only from subcostal and apical images. IVC: Inferior vena cava without respiratory collapse, however, patient on ventilator. Pulmonary Artery: Normal pulmonary artery size. Conclusions 1.Normal left ventricular cavity size. Severe left ventricular systolic dysfunction in limited views. Tissue Doppler/Mitral Doppler indices are most probably consistent with pseudonormalization with mildly elevated left atrial pressure (Stage II diastolic dysfunction). Normal left ventricular wall thickness. The left ventricular ejection fraction is visually estimated at 20 %. 2.Normal right ventricular size, RV apex is possibly akinetic. 3.The left atrium is normal in size and appearance. 4.The right atrium is normal in size and appearance. 5.Mild mitral regurgitation. 6.Mild aortic regurgitation. 7.Normal pericardium with no significant pericardial effusion. Electronically Signed By: Casey Schuler 16-Feb-2017 14:24:46 -0700 Patient Name: JAKE CEBALLOS Study Date: 15-Feb-2017 [id number]
--- NOTE | 2017-02-16 15:16 | RADRPT ---
PROCEDURE: XR Chest. CLINICAL INDICATION: Intubated, respiratory failure TECHNIQUE: Anterior chest x-ray. COMPARISON: Chest radiograph performed the prior day. FINDINGS: There is stable and satisfactory position of the life-support lines. Endotracheal tube terminates 2.5 cm above the agustín. Upper left chest tube terminates with its tip projecting over the aortic arch, unchanged. Nasogastric tube terminates around the stomach. The lungs are mildly hyperexpanded. Patchy airspace opacities are seen throughout the right lung with prominent interstitial lung markin gs, suggesting pulmonary edema The cardiomediastinal contour is stable. There is no free air under the hemidiaphragms. The soft tissues and bony structures are unchanged. IMPRESSION: 1. Stable and satisfactory position of the life-support lines. 2. No evidence of pneumothorax. 3. Air space and interstitial lung opacities, predominately in the right lung, likely pulmonary jean ma, increased from previous exam. RPTAT: QQ .Giovain Gaxiola MD, MD Date Time Electronically viewed and signed by .Giovani Gaxiola MD, on 02/16/2017 15:16 .M/
[2017-02-16] MEDS: PIPER-TAZO 2.25 GM (PMX) 50 ML IVPB SCH (17:30)
--- NOTE | 2017-02-16 19:22 | PN ---
Date/Time of Note Date/Time of Note DATE: 02/16/17 TIME: 17:43 Assessment/Plan VTE Prophylaxis VTE Prophylaxis Intervention: SCD's Assessment/Plan Chief Complaint/Hosp Course 1. Cardiac arrest secondary to V-fib status post ACLS with defibrillation and return of circulation Patient is status post intubation in the ER Status post hypothermia protocol Chest tube placed for pneumothorax caused by repeated chest compressions Cardiology consultation, patient does not meet criteria for emergent cardiac catheterization per manager qa on-call Broad-spectrum antibiotics 2. Acute respiratory distress secondary to cardiac arrest Continue vent management Pulmonology consultation appreciated 3. Pneumothorax secondary to repeated chest compressions status post chest tube placement 4. 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 Pancytopenia possibly secondary to sepsis-WBC has increased Continue antibiotics HIV negative 6. Acute kidney disease secondary to cardiac arrest IV fluid 7. Hyperglycemia-possibly reactive A1c is within normal limits 8. Hyponatremia likely secondary to dehydration-resolved IV fluids with normal saline 9. Bacteremia secondary to gram-positive cocci Vancomycin IV Prophylaxis: SCDs Problems: Subjective 24 Hr Interval Summary Subjective hx not possible: pt non-verbal Exam/Review of Systems Vital Signs Vitals Vital Signs Date Time Temp Pulse Resp B/P Pulse Ox O2 Delivery O2 Flow Rate FiO2 02/16/17 16:15 93 25 124/93 97 02/16/17 16:00 97.5 Mechanical Ventilator 02/16/17 13:10 40 Intake and Output 02/15/17 02/15/17 02/16/17 15:00 23:00 07:00 Intake Total 1483.740 ml 2259.15 ml 3552.77 ml Output Total 265 ml 177 ml 122 ml Balance 1218.740 ml 2082.15 ml 3430.77 ml Exam Constitutional: non-verbal ENMT: intubated Respiratory: clear to auscultation Cardiovascular: regular rate and rhythm Gastrointestinal: soft, No distended Musculoskeletal: nl extremities to inspection Results Result Diagram: 02/16/17 1220 02/16/17 1220 Results 24 hrs Laboratory Tests Test 02/15/17 18:11 02/15/17 18:35 02/15/17 19:26 02/15/17 19:29 Bedside Glucose 139 131 White Blood Count 15.2 #H Red Blood Count 3.63 L Hemoglobin 12.1 L Hematocrit 36.4 L Mean Corpuscular Volume 100.3 Mean Corpuscular Hemoglobin 33.3 H Mean Corpuscular Hemoglobin Concent 33.2 Red Cell Distribution Width 13.9 Platelet Count 84 L Mean Platelet Volume 10.8 H Neutrophils % 75.7 Lymphocytes % 12.2 L Monocytes % 11.0 Eosinophils % 0.1 Basophils % 0.2 Nucleated Red Blood Cells % 0.0 Neutrophils # 11.5 H Lymphocytes # 1.9 Monocytes # 1.7 H Eosinophils # 0.0 Basophils # 0.0 Nucleated Red Blood Cells # 0.0 Prothrombin Time 14.0 Prothrombin Time Ratio 1.1 INR International Normalized Ratio 1.08 Activated Partial Thromboplast Time 30.8 Sodium Level 140 Potassium Level 3.6 Chloride Level 112 H Carbon Dioxide Level 17 L Anion Gap 15 Blood Urea Nitrogen 43 H Creatinine 1.78 H Glucose Level 151 Calcium Level 7.3 L Phosphorus Level 3.0 Magnesium Level 1.8 Amylase Level 365 H Lipase 90 Test 02/15/17 20:03 02/15/17 21:40 02/15/17 22:43 02/15/17 23:37 Bedside Glucose 149 124 116 Blood Gas Specimen Source Blood arterial Arterial Blood Date Drawn 02/14/2017 11:30:17 PM Arterial Blood pH (Temp corrected) 7.209 *L Arterial Blood pCO2 (Temp correct) 33.4 L Arterial Blood pO2 (Temp corrected) 83.1 Arterial Blood HCO3 13.7 L Arterial Blood Base Excess -14.2 L Arterial Blood Oxygen Saturation 96.2 Chris Test ACCEPTAB Arterial Blood Gas Puncture Site Right Radial Arterial Blood Carboxyhemoglobin 0.3 Arterial Blood Methemoglobin 0.3 Blood Gas A-a O2 Differential 459.5 H Oxyhemoglobin Percent 95.6 Total Hemoglobin 12.2 Blood Gas Temperature 33.2 Blood Gas Respiration Rate 25.0 Blood Gas Actual Respiration Rate 25 Blood Gas Modality VENT - AC FiO2 80.0 Blood Gas Tidal Volume 450.0 Blood Gas Low PEEP Setting 10.0 Blood Gas Critical Value Read Back T AVILA BROWN RN Blood Gas Notified Whom UP Blood Gas Notified Time 02/14/2017 11:40:41 PM Test 02/16/17 00:16 02/16/17 00:30 02/16/17 01:06 02/16/17 02:14 Bedside Glucose 89 104 124 White Blood Count 10.1 # Red Blood Count 3.13 L Hemoglobin 10.3 L Hematocrit 30.3 L Mean Corpuscular Volume 96.8 Mean Corpuscular Hemoglobin 32.9 Mean Corpuscular Hemoglobin Concent 34.0 Red Cell Distribution Width 14.0 Platelet Count 74 L Mean Platelet Volume 10.9 H Neutrophils % 78.6 H Lymphocytes % 11.4 L Monocytes % 9.6 Eosinophils % 0.0 Basophils % 0.1 Nucleated Red Blood Cells % 0.0 Neutrophils # 8.0 H Lymphocytes # 1.2 Monocytes # 1.0 H Eosinophils # 0.0 Basophils # 0.0 Nucleated Red Blood Cells # 0.0 Prothrombin Time 14.6 H Prothrombin Time Ratio 1.1 INR International Normalized Ratio 1.14 Activated Partial Thromboplast Time 34.4 Sodium Level 137 Potassium Level 3.7 Chloride Level 114 H Carbon Dioxide Level 17 L Anion Gap 10 # Blood Urea Nitrogen 43 H Creatinine 1.85 H Glucose Level 113 Calcium Level 6.9 L Phosphorus Level 3.3 Magnesium Level 1.7 Amylase Level 354 H Lipase 77 Test 02/16/17 02:56 02/16/17 04:14 02/16/17 05:00 02/16/17 05:07 Bedside Glucose 125 111 126 Blood Gas Specimen Source Blood arterial Arterial Blood Date Drawn 02/16/2017 4:19:36 AM Arterial Blood pH (Temp corrected) 7.421 Arterial Blood pCO2 (Temp correct) 25.8 L Arterial Blood pO2 (Temp corrected) 184.9 H Arterial Blood HCO3 16.4 L Arterial Blood Base Excess -6.6 L Arterial Blood Oxygen Saturation 98.3 Chris Test ACCEPTAB Arterial Blood Gas Puncture Site Right Radial Arterial Blood Carboxyhemoglobin 0.3 Arterial Blood Methemoglobin 0.1 Blood Gas A-a O2 Differential 142.6 H Oxyhemoglobin Percent 97.9 Total Hemoglobin 11.6 L Blood Gas Temperature 37.0 Blood Gas Respiration Rate 28.0 Blood Gas Actual Respiration Rate 28 Blood Gas Modality VENT - AC FiO2 50.0 Blood Gas Tidal Volume 500.0 Blood Gas Low PEEP Setting 8.0 Blood Gas Notified Whom LW Blood Gas Notified Time 02/16/2017 4:30:30 AM Test 02/16/17 05:54 02/16/17 06:47 02/16/17 09:08 02/16/17 10:37 Bedside Glucose 125 121 136 136 White Blood Count 11.9 H Red Blood Count 3.12 L Hemoglobin 10.3 L Hematocrit 30.4 L Mean Corpuscular Volume 97.4 Mean Corpuscular Hemoglobin 33.0 Mean Corpuscular Hemoglobin Concent 33.9 Red Cell Distribution Width 14.2 Platelet Count 75 L Mean Platelet Volume 11.7 H Neutrophils % 81.3 H Lymphocytes % 10.1 L Monocytes % 8.2 Eosinophils % 0.0 Basophils % 0.1 Nucleated Red Blood Cells % 0.0 Neutrophils # 9.6 H Lymphocytes # 1.2 Monocytes # 1.0 H Eosinophils # 0.0 Basophils # 0.0 Nucleated Red Blood Cells # 0.0 Prothrombin Time 14.7 H Prothrombin Time Ratio 1.1 INR International Normalized Ratio 1.15 Activated Partial Thromboplast Time 34.4 Sodium Level 138 Potassium Level 3.8 Chloride Level 114 H Carbon Dioxide Level 17 L Anion Gap 11 Blood Urea Nitrogen 44 H Creatinine 2.05 H Glucose Level 121 Lactic Acid Level 2.7 H Calcium Level 7.2 L Phosphorus Level 3.8 Magnesium Level 2.0 Amylase Level 338 H Lipase 78 Test 02/16/17 12:20 02/16/17 13:06 02/16/17 17:29 White Blood Count 13.5 H Red Blood Count 3.07 L Hemoglobin 10.4 L Hematocrit 29.9 L Mean Corpuscular Volume 97.4 Mean Corpuscular Hemoglobin 33.9 H Mean Corpuscular Hemoglobin Concent 34.8 Red Cell Distribution Width 14.5 Platelet Count 72 L Mean Platelet Volume 12.3 H Neutrophils % 81.3 H Lymphocytes % 9.5 L Monocytes % 8.7 Eosinophils % 0.0 Basophils % 0.1 Nucleated Red Blood Cells % 0.0 Neutrophils # 11.0 H Lymphocytes # 1.3 Monocytes # 1.2 H Eosinophils # 0.0 Basophils # 0.0 Nucleated Red Blood Cells # 0.0 Prothrombin Time 15.5 H Prothrombin Time Ratio 1.2 INR International Normalized Ratio 1.22 Activated Partial Thromboplast Time 33.7 Sodium Level 136 Potassium Level 3.7 Chloride Level 110 Carbon Dioxide Level 18 L Anion Gap 12 Blood Urea Nitrogen 42 H Creatinine 2.24 H Glucose Level 145 Calcium Level 7.0 L Phosphorus Level 4.3 Magnesium Level 1.9 Amylase Level 305 H Lipase 109 Bedside Glucose 145 133 Medications Medications Current Medications Fentanyl 25 mcg 25 mcg Q10M PRN IV SEDATION; Start 02/14/17 at 12:30 Sodium Chloride (NS) 1,000 ml @ 100 mls/hr Q10H IV Last administered on 18:27; Admin Dose 100 MLS/HR; Start 02/14/17 at 15:57; Status Future Hold Ondansetron HCl (Zofran Inj) 4 mg Q6H PRN IV NAUSEA AND/OR VOMITING; Start 02/14 at 16:00 Morphine Sulfate (morphine) 2 mg Q4H PRN IV SEVERE PAIN LEVEL 7-10; Start at 16:00 Pantoprazole 40 mg 40 mg DAILY@06 IV Last administered on 02/16/17 05:38; Admin Dose 40 MG; Start 02/15/17 at 06:00 Amiodarone HCl/ Dextrose (Cordarone Iv/ D5W) 500 ml @ 0 mls/hr Q0M IV Last administered on 02/14/17 17:51; Admin Dose 33.3 MLS/HR; Start 02/14/17 at 17:00; Status Future Hold Acetaminophen (Tylenol Supp) 650 mg Q4H PRN [place] TEMP > 37C; Start 02/14/17 at 18: 00 Acetaminophen (Tylenol Liquid) 650 mg Q4H PRN PO TEMP > 37C; Start 02/14/17 at 18:00 Meperidine HCl (Demerol) 12.5 mg Q4H PRN IV POST OPERATIVE SHIVERING; Start 02/14/17 at 18:00 Meperidine HCl (Demerol) 25 mg Q4H PRN IV POST OPERATIVE SHIVERING; Start at 18:00 Eye Lubricant (Akwa Oint) 1 applic Q6 BOTH EYES Last administered on 02/16/17 17:30; Admin Dose 1 APPLIC; Start 02/14/17 at 18:00 Eye Lubricant (Artificial Tears Oph) 2 drop Q6 BOTH EYES Last administered on 17:30; Admin Dose 2 DROP; Start 02/14/17 at 18:00 Diagnostic Test (Pha) 1 ea 1 ea Q1H XX Last administered on 02/16/17 13:06; Admin Dose 1 EA; Start 02/14/17 at 18:00 Vecuronium [place] 100 mg/ Dextrose 100 ml @ 4.2 mls/hr [id number] IV Last administered on 02/15/17 17:29; Admin Dose 1.75 MLS/HR; Start 02/14/17 at 18:31 Norepinephrine 16 mg/Dextrose 500 ml @ 0 mls/hr TITRATE IV Last administered on 02/16/17 05:50; Admin Dose 37.5 MLS/HR; Start 02/14/17 at 22:00 Azithromycin 500 mg/Sodium Chloride 250 ml @ 250 mls/hr DAILY IVPB Last administered on 02/16/17 09:07; Admin Dose 250 MLS/HR; Start 02/15/17 at 10:00 Sodium Bicarbonate/ Dextrose (Na Bicarb/D5W) 1,150 ml @ 100 mls/hr [id number] IV Last administered on 02/16/17 13:02; Admin Dose 100 MLS/HR; Start 02/15/17 at 10: 00 Aspirin 300 mg 300 mg DAILY [place] Last administered on 02/16/17 09:07; Admin Dose 300 MG; Start 02/15/17 at 11:00 Phenylephrine HCl/ Dextrose (Fritz-Syneph/D5W) 500 ml @ 75 mls/hr TITRATE IV ; Start 02/16/17 at 03:30 Insulin Aspart (Novolog Insulin Pen) NOVOLOG *MILD* ALGORI... Q4 SC Last administered on 02/16/17 13:10; Admin Dose 1 UNIT; Start 02/16/17 at 13:00 Miscellaneous Information 1 ea NOTE XX ; Start 02/16/17 at 11:30 Glucose (Glutose) 15 gm Q15M PRN PO DECREASED GLUCOSE; Start 02/16/17 at 11:30 Glucose (Glutose) 22.5 gm Q15M PRN PO DECREASED GLUCOSE; Start 02/16/17 at 11:30 Dextrose (D50w Syringe) 25 ml Q15M PRN IV DECREASED GLUCOSE; Start 02/16/17 at 11:30 Dextrose (D50w Syringe) 50 ml Q15M PRN IV DECREASED GLUCOSE; Start 02/16/17 at 11:30 Glucagon (Glucagen) 1 mg Q15M PRN IM DECREASED GLUCOSE; Start 02/16/17 at 11:30 Glucose (Glutose) 15 gm Q15M PRN BUCCAL DECREASED GLUCOSE; Start 02/16/17 at 11: 30 Miscellaneous Information RANDOM VANCOMYCIN LEVEL 7... ONCE ONCE XX ; Start 05/27 at 05:00; Stop 02/17/17 at 05:01 Piperacillin Sod/ Tazobactam Sod 50 ml @ 100 mls/hr Q6 IVPB Last administered on 02/16/17t 17:30; Admin Dose 100 MLS/HR; Start 02/16/17 at 18:00 Vasopressin/ Dextrose (Vasostrict/D5W) 60 ml @ 1.8 mls/hr Q12H IV ; Start at 13:00 GUILHERME YATES Feb 16, 2017 19:22
[2017-02-17] VITALS (97 sets, daily range): BP systolic 68–125; BP diastolic 49–90; PULSE 69–111; RESP 12–31
[2017-02-17] MEDS: PIPER-TAZO 2.25 GM (PMX) 50 ML IVPB SCH ×4 (00:38→18:52)
[2017-02-17] MEDS: ARTIFICIAL TEARS 15 ML OPH BOTH EYES SCH ×4 (00:40→18:48)
[2017-02-17] MEDS: OCULAR LUBRICANT 3.5 GM OPH OINT BOTH EYES SCH ×4 (00:40→18:48)
[2017-02-17] MEDS: INSULIN ASPART [NOVOLOG] 3 ML PEN SC SCH ×6 (00:43→20:34)
[2017-02-17] MEDS: VASOPRESSIN 60 UNIT in DEXTROSE 5% 57 ML IV SCH ×2 (01:00→12:51)
[2017-02-17] MEDS: SODIUM BICARBONATE (IV ADD) 150 MEQ in DEXTROSE 5% 1,000 ML IV SCH (01:02)
[2017-02-17] MEDS: morphine 2 MG INJ IV PRN ×3 (01:14→10:46)
[2017-02-17 04:39] LABS: ADD SCAN DIFF NO
[2017-02-17 04:47] LABS: ABNORMAL IP MESSAGE 1; BASOPHILS % 0.1 % (0.0-2.0); HEMATOCRIT 28.6 % (42.0-52.0); HEMOGLOBIN 9.6 g/dl (14.0-18.0); LYMPHOCYTES # 1.2 10^3/ul (0.8-2.9); LYMPHOCYTES % 7.7 % (15.0-51.0); MEAN CORPUSCULAR HGB CONC 33.6 g/dl (32.0-37.0); MEAN CORPUSCULAR VOLUME 98.3 fl (82.0-101.0); MEAN PLATELET VOLUME 12.4 fl (7.4-10.4); MONOCYTE # 0.9 10^3/ul (0.3-0.9); MONOCYTES % 5.9 % (0.0-11.0); NEUTROPHILS % 85.9 % (39.0-77.0); PLATELET COUNT 78 10^3/UL (140-415); RED BLOOD COUNT 2.91 10^6/ul (4.70-6.10); RED CELL DISTRIBUTION WIDTH 14.6 % (11.5-14.5); WHITE BLOOD COUNT 15.1 10^3/ul (4.8-10.8)
[2017-02-17 05:32] LABS: CALCIUM 6.9 mg/dl (8.4-10.2); CREATININE 2.34 mg/dl (0.61-1.24); POTASSIUM 3.3 mmol/L (3.5-5.1)
[2017-02-17] MEDS: PANTOPRAZOLE 40 MG INJ IV SCH (05:32)
[2017-02-17 05:33] LABS: MAGNESIUM 1.8 mg/dl (1.7-2.5); PHOSPHORUS 4.4 mg/dl (2.5-4.9)
[2017-02-17] MEDS: POTASSIUM CHLORIDE 250 ML IVPB SCH ×2 (06:38→10:46)
[2017-02-17] MEDS: MIDAZOLAM (DRIP) 50 mg/50 mL 50 ML IV SCH ×2 (07:30→12:24)
--- NOTE | 2017-02-17 07:54 | RADRPT ---
PROCEDURE: XR Chest. CLINICAL INDICATION: Shortness of breath. TECHNIQUE: Single frontal view. COMPARISON: 02/16/2017. FINDINGS: The endotracheal tube remains in satisfactory position. The nasogastric tube tip is at the gastroes ophageal junction and should be advanced approximately 10 cm. The left chest tube remains in satisf actory position. There is bilateral air space disease consistent with pulmonary edema with possible right upper lobe pneumonia, worse than seen previously. The heart size is normal. Calcification is present in the aorta consistent with atherosclerosis. There is no pleural effusion. There is no pneumothorax. Left rib fractures are once again noted. IMPRESSION: 1. Worse appearance of the lungs. Superimposed pneumonia in the right upper lobe cannot be exclude d. 2. The nasogastric tube should be advanced approximately 10 cm. 3. No other new abnormality. RPTAT: QQ .Guillermo Palafox MD, MD Date Time Electronically viewed and signed by .Guillermo Palafox MD, on 02/17/2017 07:53 .R/
[2017-02-17 08:32] LABS: AADO2 Arterial 283.1 mmHg (7.0-24.0); Allen Test ACCEPTAB; Arterial Base Excess -2.5 mmol/L (-3.0-3); Arterial COHb 0.3 % (0.0-3.0); Arterial Fraction of Oxyhgb 91.6 % (93.0-99.0); Arterial HCO3 22.1 mmol/L (22.0-26.0); Arterial MetHb 0.2 % (0.0-1.5); Arterial Total Hemglobin 10.4 g/dl (12.0-18.0); MODE VENT - AC
[2017-02-17] MEDS: AZITHROMYCIN 500 MG in SOD CHLORIDE 0.9% 250 ML IVPB SCH (08:38)
[2017-02-17] MEDS: ASPIRIN 300 MG SUPP PR SCH (09:41)
--- NOTE | 2017-02-17 10:18 | PN ---
Date/Time of Note Date/Time of Note DATE: 02/17/17 TIME: 10:12 Assessment/Plan VTE Prophylaxis VTE Prophylaxis Intervention: SCD's Lines/Catheters IV Catheter Type (from Nrs): Central Line Central line still needed: Yes Urinary Cath still in place: Yes Reason Cath still needed: other (indicate) Assessment/Plan Chief Complaint/Hosp Course Chief Complaint/Hosp Course 1. Cardiac arrest secondary to V-fib status post ACLS with defibrillation and return of circulation Intubated and vent dependent at this time Status post hypothermia protocol Chest tube placed for pneumothorax caused by repeated chest compressions Cardiology consultation, patient does not meet criteria for emergent cardiac catheterization per leather seasoner on-call Broad-spectrum antibiotics 2. Acute respiratory distress secondary to cardiac arrest Continue vent management Pulmonology consultation appreciated 3. Pneumothorax secondary to repeated chest compressions status post chest tube placement 4. 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 Pancytopenia possibly secondary to sepsis-WBC has increased Continue antibiotics HIV negative 6. Acute kidney disease secondary to cardiac arrest IV fluid Nephrology has been consulted, follow-up renal panel in a.m. 7. Hyperglycemia-possibly reactive A1c is within normal limits 8. Hyponatremia likely secondary to dehydration-resolved IV fluids with normal saline 9. Bacteremia secondary to gram-positive cocci Vancomycin IV Prophylaxis: SCDs Problems: Subjective 24 Hr Interval Summary Free Text/Dictation Patient remains intubated Chest tube in place in the left axillary region On sedation Via Versed On pressors on Levophed Vent setting 500, FiO2 of 50% with PEEP of 5 Patient opens his eyes during sedation holiday Exam/Review of Systems Vital Signs Vitals Vital Signs Date Time Temp Pulse Resp B/P Pulse Ox O2 Delivery O2 Flow Rate FiO2 02/17/17 09:45 76 26 77/64 93 02/17/17 09:17 55 02/17/17 09:00 Mechanical Ventilator 02/17/17 08:00 98.9 Intake and Output 02/16/17 02/16/17 02/17/17 15:00 23:00 07:00 Intake Total 1439.00 ml 1077.27 ml 1126.75 ml Output Total 122 ml 321 ml 374 ml Balance 1317.00 ml 756.27 ml 752.75 ml Exam General: The patient is intubated, sedated, not in acute distress. HEENT: Atraumatic, normocephalic. The pupils are equal and symmetric Neck: Supple Chest: Chest tube in left axillary region Lungs: Decreased breath sounds bilateral lower lung field Heart: Normal S1-S2, regular rate Abdomen: Soft , nontender, nondistended , bowel sounds are present. Extremities: Normal to inspection, no edema no cyanosis Neurologic: Sedated Results Result Diagram: 02/17/17 0350 02/17/17 0350 Results 24 hrs Laboratory Tests Test 02/16/17 10:37 02/16/17 12:20 02/16/17 13:06 02/16/17 17:29 Bedside Glucose 136 145 133 White Blood Count 13.5 H Red Blood Count 3.07 L Hemoglobin 10.4 L Hematocrit 29.9 L Mean Corpuscular Volume 97.4 Mean Corpuscular Hemoglobin 33.9 H Mean Corpuscular Hemoglobin Concent 34.8 Red Cell Distribution Width 14.5 Platelet Count 72 L Mean Platelet Volume 12.3 H Neutrophils % 81.3 H Lymphocytes % 9.5 L Monocytes % 8.7 Eosinophils % 0.0 Basophils % 0.1 Nucleated Red Blood Cells % 0.0 Neutrophils # 11.0 H Lymphocytes # 1.3 Monocytes # 1.2 H Eosinophils # 0.0 Basophils # 0.0 Nucleated Red Blood Cells # 0.0 Prothrombin Time 15.5 H Prothrombin Time Ratio 1.2 INR International Normalized Ratio 1.22 Activated Partial Thromboplast Time 33.7 Sodium Level 136 Potassium Level 3.7 Chloride Level 110 Carbon Dioxide Level 18 L Anion Gap 12 Blood Urea Nitrogen 42 H Creatinine 2.24 H Glucose Level 145 Calcium Level 7.0 L Phosphorus Level 4.3 Magnesium Level 1.9 Amylase Level 305 H Lipase 109 Test 02/16/17 20:58 02/17/17 00:41 02/17/17 03:50 02/17/17 05:00 Bedside Glucose 138 141 White Blood Count 15.1 H Red Blood Count 2.91 L Hemoglobin 9.6 L Hematocrit 28.6 L Mean Corpuscular Volume 98.3 Mean Corpuscular Hemoglobin 33.0 Mean Corpuscular Hemoglobin Concent 33.6 Red Cell Distribution Width 14.6 H Platelet Count 78 L Mean Platelet Volume 12.4 H Neutrophils % 85.9 H Lymphocytes % 7.7 L Monocytes % 5.9 Eosinophils % 0.0 Basophils % 0.1 Nucleated Red Blood Cells % 0.0 Neutrophils # 13.0 H Lymphocytes # 1.2 Monocytes # 0.9 Eosinophils # 0.0 Basophils # 0.0 Nucleated Red Blood Cells # 0.0 Sodium Level 139 Potassium Level 3.3 L Chloride Level 107 Carbon Dioxide Level 22 Anion Gap 13 Blood Urea Nitrogen 48 H Creatinine 2.34 H Glucose Level 140 Lactic Acid Level 3.5 H Calcium Level 6.9 L Phosphorus Level 4.4 Magnesium Level 1.8 Random Vancomycin Level 15.5 Blood Gas Specimen Source Blood arterial Arterial Blood Date Drawn 02/17/2017 4:58:01 AM Arterial Blood pH (Temp corrected) 7.390 Arterial Blood pCO2 (Temp correct) 37.3 Arterial Blood pO2 (Temp corrected) 67.6 L Arterial Blood HCO3 22.1 Arterial Blood Base Excess -2.5 Arterial Blood Oxygen Saturation 92.1 L Chris Test ACCEPTAB Arterial Blood Gas Puncture Site Right Radial Arterial Blood Carboxyhemoglobin 0.3 Arterial Blood Methemoglobin 0.2 Blood Gas A-a O2 Differential 283.1 H Oxyhemoglobin Percent 91.6 L Total Hemoglobin 10.4 L Blood Gas Temperature 37.0 Blood Gas Respiration Rate 26.0 Blood Gas Actual Respiration Rate 26 Blood Gas Modality VENT - AC FiO2 55.0 Blood Gas Tidal Volume 500.0 Blood Gas Low PEEP Setting 8.0 Blood Gas Notified Whom RTR Blood Gas Notified Time 02/17/2017 5:44:40 AM Test 02/17/17 05:31 02/17/17 08:37 Bedside Glucose 128 94 Medications Medications Current Medications Fentanyl 25 mcg 25 mcg Q10M PRN IV SEDATION; Start 02/14/17 at 12:30 Sodium Chloride (NS) 1,000 ml @ 100 mls/hr Q10H IV Last administered on 18:27; Admin Dose 100 MLS/HR; Start 02/14/17 at 15:57; Status Future Hold Ondansetron HCl (Zofran Inj) 4 mg Q6H PRN IV NAUSEA AND/OR VOMITING; Start 02/14 at 16:00 Morphine Sulfate (morphine) 2 mg Q4H PRN IV SEVERE PAIN LEVEL 7-10 Last administered on 02/17/17 05:32; Admin Dose 2 MG; Start 02/14/17 at 16:00 Pantoprazole 40 mg 40 mg DAILY@06 IV Last administered on 02/17/17 05:32; Admin Dose 40 MG; Start 02/15/17 at 06:00 Amiodarone HCl/ Dextrose (Cordarone Iv/ D5W) 500 ml @ 0 mls/hr Q0M IV Last administered on 02/14/17 17:51; Admin Dose 33.3 MLS/HR; Start 02/14/17 at 17:00; Status Future Hold Acetaminophen (Tylenol Supp) 650 mg Q4H PRN [place] TEMP > 37C; Start 02/14/17 at 18: 00 Acetaminophen (Tylenol Liquid) 650 mg Q4H PRN PO TEMP > 37C; Start 02/14/17 at 18:00 Eye Lubricant (Akwa Oint) 1 applic Q6 BOTH EYES Last administered on 02/17/17 05:31; Admin Dose 1 APPLIC; Start 02/14/17 at 18:00 Eye Lubricant 2 drop 2 drop Q6 BOTH EYES Last administered on 02/17/17 05:31; Admin Dose 2 DROP; Start 02/14/17 at 18:00 Norepinephrine 16 mg/Dextrose 500 ml @ 0 mls/hr TITRATE IV Last administered on 02/17/17 00:44; Admin Dose 45 MLS/HR; Start 02/14/17 at 22:00 Azithromycin 500 mg/Sodium Chloride 250 ml @ 250 mls/hr DAILY IVPB Last administered on 02/17/17 08:38; Admin Dose 250 MLS/HR; Start 02/15/17 at 10:00 Sodium Bicarbonate/ Dextrose (Na Bicarb/D5W) 1,150 ml @ 100 mls/hr [id number] IV Last administered on 02/17/17 01:02; Admin Dose 100 MLS/HR; Start 02/15/17 at 10 :00 Aspirin 300 mg 300 mg DAILY [place] Last administered on 02/17/17 09:41; Admin Dose 300 MG; Start 02/15/17 at 11:00 Phenylephrine HCl/ Dextrose (Fritz-Syneph/D5W) 500 ml @ 75 mls/hr TITRATE IV ; Start 02/16/17 at 03:30 Insulin Aspart (Novolog Insulin Pen) NOVOLOG *MILD* ALGORI... Q4 SC Last administered on 02/17/17 00:43; Admin Dose 1 UNIT; Start 02/16/17 at 13:00 Miscellaneous Information 1 ea NOTE XX ; Start 02/16/17 at 11:30 Glucose (Glutose) 15 gm Q15M PRN PO DECREASED GLUCOSE; Start 02/16/17 at 11:30 Glucose (Glutose) 22.5 gm Q15M PRN PO DECREASED GLUCOSE; Start 02/16/17 at 11:30 Dextrose (D50w Syringe) 25 ml Q15M PRN IV DECREASED GLUCOSE; Start 02/16/17 at 11:30 Dextrose (D50w Syringe) 50 ml Q15M PRN IV DECREASED GLUCOSE; Start 02/16/17 at 11:30 Glucagon (Glucagen) 1 mg Q15M PRN IM DECREASED GLUCOSE; Start 02/16/17 at 11:30 Glucose 15 gm 15 gm Q15M PRN BUCCAL DECREASED GLUCOSE; Start 02/16/17 at 11:30 Piperacillin Sod/ Tazobactam Sod 50 ml @ 100 mls/hr Q6 IVPB Last administered on 02/17/17 05:32; Admin Dose 100 MLS/HR; Start 02/16/17 at 18:00 Vasopressin 60 unit/Dextrose 60 ml @ 1.8 mls/hr Q12H IV ; Start 02/16/17 at 13: 00 Potassium Chloride (KCl 40 MEQ/250 ML NS) 250 ml @ 62.5 mls/hr Q4H IVPB Last administered on 02/17/17 06:38; Admin Dose 62.5 MLS/HR; Start 02/17/17 at 07:00 ; Stop 02/17/17 at 14:59 SEVERIANO LAUREANO MD Feb 17, 2017 10:17
[2017-02-17] MEDS: SOD CHLORIDE 0.9% 1,000 ML IV SCH (12:19)
--- NOTE | 2017-02-17 12:32 | CONS ---
Date/Time of Note Date/Time of Note DATE: 02/17/17 TIME: 12:30 Consult Date/Type/Reason Admit Date/Time Feb 14, 2017 at 16:02 Initial Consult Date Type of Consultation: Pulmonary ICU Subjective Patient remains agitated off sedation. Continues Levophed at 20 mics. Objective Vital Signs Date Time Temp Pulse Resp B/P Pulse Ox O2 Delivery O2 Flow Rate FiO2 02/17/17 11:43 72 99 55 02/17/17 09:45 26 77/64 02/17/17 09:00 Mechanical Ventilator 02/17/17 08:00 98.9 Intake and Output 02/16/17 02/16/17 02/17/17 15:00 23:00 07:00 Intake Total 1439.00 ml 1077.27 ml 1126.75 ml Output Total 122 ml 321 ml 374 ml Balance 1317.00 ml 756.27 ml 752.75 ml Exam PHYSICAL EXAMINATION GENERAL: Elderly gentleman, intubated on mechanical ventilation, opens eyes and appears somewhat agitated. Orally intubated. VITAL SIGNS: see below. HEENT: Pupils equal, round, and reactive to light. CARDIAC: S1, S2, 1/6 systolic ejection murmur CHEST: Diminished air entry bilaterally. ABDOMEN: Mildly distended. Bowel sounds present no guarding or rebound EXTREMITIES: No cyanosis, clubbing edema +1 NEUROLOGIC: Generalized weakness Results/Medications Result Diagram: 02/17/17 0350 02/17/17 0350 Results 24 hrs Laboratory Tests Test 02/16/17 13:06 02/16/17 17:29 02/16/17 20:58 02/17/17 00:41 Bedside Glucose 145 133 138 141 Test 02/17/17 03:50 02/17/17 05:00 02/17/17 05:31 02/17/17 08:37 White Blood Count 15.1 H Red Blood Count 2.91 L Hemoglobin 9.6 L Hematocrit 28.6 L Mean Corpuscular Volume 98.3 Mean Corpuscular Hemoglobin 33.0 Mean Corpuscular Hemoglobin Concent 33.6 Red Cell Distribution Width 14.6 H Platelet Count 78 L Mean Platelet Volume 12.4 H Neutrophils % 85.9 H Lymphocytes % 7.7 L Monocytes % 5.9 Eosinophils % 0.0 Basophils % 0.1 Nucleated Red Blood Cells % 0.0 Neutrophils # 13.0 H Lymphocytes # 1.2 Monocytes # 0.9 Eosinophils # 0.0 Basophils # 0.0 Nucleated Red Blood Cells # 0.0 Sodium Level 139 Potassium Level 3.3 L Chloride Level 107 Carbon Dioxide Level 22 Anion Gap 13 Blood Urea Nitrogen 48 H Creatinine 2.34 H Glucose Level 140 Lactic Acid Level 3.5 H Calcium Level 6.9 L Phosphorus Level 4.4 Magnesium Level 1.8 Random Vancomycin Level 15.5 Blood Gas Specimen Source Blood arterial Arterial Blood Date Drawn 02/17/2017 4:58:01 AM Arterial Blood pH (Temp corrected) 7.390 Arterial Blood pCO2 (Temp correct) 37.3 Arterial Blood pO2 (Temp corrected) 67.6 L Arterial Blood HCO3 22.1 Arterial Blood Base Excess -2.5 Arterial Blood Oxygen Saturation 92.1 L Chris Test ACCEPTAB Arterial Blood Gas Puncture Site Right Radial Arterial Blood Carboxyhemoglobin 0.3 Arterial Blood Methemoglobin 0.2 Blood Gas A-a O2 Differential 283.1 H Oxyhemoglobin Percent 91.6 L Total Hemoglobin 10.4 L Blood Gas Temperature 37.0 Blood Gas Respiration Rate 26.0 Blood Gas Actual Respiration Rate 26 Blood Gas Modality VENT - AC FiO2 55.0 Blood Gas Tidal Volume 500.0 Blood Gas Low PEEP Setting 8.0 Blood Gas Notified Whom RTR Blood Gas Notified Time 02/17/2017 5:44:40 AM Bedside Glucose 128 94 Medications Current Medications Fentanyl (Sublimaze) 25 mcg Q10M PRN IV SEDATION; Start 02/14/17 at 12:30 Ondansetron HCl (Zofran Inj) 4 mg Q6H PRN IV NAUSEA AND/OR VOMITING; Start 02/14 at 16:00 Morphine Sulfate (morphine) 2 mg Q4H PRN IV SEVERE PAIN LEVEL 7-10 Last administered on 02/17/17 10:46; Admin Dose 2 MG; Start 02/14/17 at 16:00 Pantoprazole 40 mg 40 mg DAILY@06 IV Last administered on 02/17/17 05:32; Admin Dose 40 MG; Start 02/15/17 at 06:00 Amiodarone HCl/ Dextrose (Cordarone Iv/ D5W) 500 ml @ 0 mls/hr Q0M IV Last administered on 02/14/17 17:51; Admin Dose 33.3 MLS/HR; Start 02/14/17 at 17:00; Status Future Hold Acetaminophen (Tylenol Supp) 650 mg Q4H PRN [place] TEMP > 37C; Start 02/14/17 at 18: 00 Acetaminophen (Tylenol Liquid) 650 mg Q4H PRN PO TEMP > 37C; Start 02/14/17 at 18:00 Eye Lubricant (Akwa Oint) 1 applic Q6 BOTH EYES Last administered on 02/17/17 12:19; Admin Dose 1 APPLIC; Start 02/14/17 at 18:00 Eye Lubricant 2 drop 2 drop Q6 BOTH EYES Last administered on 02/17/17 12:19; Admin Dose 2 DROP; Start 02/14/17 at 18:00 Norepinephrine 16 mg/Dextrose 500 ml @ 0 mls/hr TITRATE IV Last administered on 02/17/17 00:44; Admin Dose 45 MLS/HR; Start 02/14/17 at 22:00 Azithromycin/ Sodium Chloride (Zithromax/NS) 250 ml @ 250 mls/hr DAILY IVPB Last administered on 02/17/17 08:38; Admin Dose 250 MLS/HR; Start 02/15/17 at 10 :00 Aspirin 300 mg 300 mg DAILY [place] Last administered on 02/17/17 09:41; Admin Dose 300 MG; Start 02/15/17 at 11:00 Phenylephrine HCl/ Dextrose (Fritz-Syneph/D5W) 500 ml @ 75 mls/hr TITRATE IV ; Start 02/16/17 at 03:30 Insulin Aspart (Novolog Insulin Pen) NOVOLOG *MILD* ALGORI... Q4 SC Last administered on 02/17/17 00:43; Admin Dose 1 UNIT; Start 02/16/17 at 13:00 Miscellaneous Information 1 ea NOTE XX ; Start 02/16/17 at 11:30 Glucose (Glutose) 15 gm Q15M PRN PO DECREASED GLUCOSE; Start 02/16/17 at 11:30 Glucose (Glutose) 22.5 gm Q15M PRN PO DECREASED GLUCOSE; Start 02/16/17 at 11:30 Dextrose (D50w Syringe) 25 ml Q15M PRN IV DECREASED GLUCOSE; Start 02/16/17 at 11:30 Dextrose (D50w Syringe) 50 ml Q15M PRN IV DECREASED GLUCOSE; Start 02/16/17 at 11:30 Glucagon (Glucagen) 1 mg Q15M PRN IM DECREASED GLUCOSE; Start 02/16/17 at 11:30 Glucose 15 gm 15 gm Q15M PRN BUCCAL DECREASED GLUCOSE; Start 02/16/17 at 11:30 Piperacillin Sod/ Tazobactam Sod 50 ml @ 100 mls/hr Q6 IVPB Last administered on 02/17/17 12:24; Admin Dose 100 MLS/HR; Start 02/16/17 at 18:00 Vasopressin 60 unit/Dextrose 60 ml @ 1.8 mls/hr Q12H IV ; Start 02/16/17 at 13: 00 Potassium Chloride 250 ml @ 62.5 mls/hr Q4H IVPB Last administered on 10:46; Admin Dose 62.5 MLS/HR; Start 02/17/17 at 07:00; Stop 02/17/17 at 14 :59 Sodium Chloride (NS) 1,000 ml @ 75 mls/hr [id number] IV Last administered on 02/17 12:19; Admin Dose 75 MLS/HR; Start 02/17/17 at 12:00 Assessment/Plan Chief Complaint/Hosp Course IMP: 1. Cardiopulmonary Arrest: query primary cardiac event leading to respiratory failure and multilobar aspiration pneumonia 2. Respiratory Failure/Vent 3. Multifocal pneumonia--likely aspiration 4. s/p VF 5. ARF 6. Barotrauma--s/p CPR 7. Hypoglycemia 8. Septic shock RECS: 1. Vent support 2. Continue NaHCO3 gtt decrease as tolerated 3. Titrate off neosynephrine gtt as it will impair afterload in setting of low EF 4. Levophed to MAP > 65 mm Hg; 5. Follow-up Cxs 6. Possible anoxic brain injury follow neurological status 7. Broad spectrum abx 8. Follow renal fxn 9. 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
--- NOTE | 2017-02-17 12:37 | CONS ---
Date/Time of Note Date/Time of Note DATE: 02/17/17 TIME: 12:29 Assessment/Plan Assessment/Plan Chief Complaint/Hosp Course 1. Nonoliguric acute kidney injury with previous baseline creatinine 0.8 mg/dL. -Etiology of AK secondary to ATN due to ischemic hypoperfusion shock. -Urinalysis was reviewed evidence of proteinuria no evidence of active sediment -Plan is check her renal ultrasound, will repeat urinalysis, will check urine lites. -Continue current treatment plan continue IV fluids, pressor support maintain map of 65. -Related also meds avoid nephrotoxins 2. Anemia. -Monitor H&H levels 3. Mineral bone disorder -Monitor calcium phosphorus levels 4. Hypokalemia -Replete with potassium chloride 5. Metabolic acidosis, secondary to a Chiari lactic acidosis. -Improved with bicarbonate drip -We will DC at this time and monitor 6. Cardiac arrest. Patient status post hypothermia protocol -Follow-up with cardiology 7. Ventilator dependent respiratory failure -Vent settings ABGs reviewed -Follow-up with pulmonary 8. Pneumothorax -Status post chest tube placement, continue to monitor 9. Sepsis with bacteremia -Continue antibiotic regimen Thank you Dr. mathis for this interesting consult will be pleasure follow patient with you throughout hospital course Problems: Consultation Date/Type/Reason Admit Date/Time Feb 14, 2017 at 16:02 Reason for Consultation AK I Hx of Present Illness This is a 68-year-old male with a past medical history of hypertension dyslipidemia history of chronic back pain history of homelessness who was brought into [facility] emergency room after was found down by paramedics. The patient was unresponsive was in PEA upon arrival in the ED patient was in v fib. ACLS was performed after reports patient has spontaneous return of circulation. The patient was then transferred to intensive care unit where he underwent a code arrest 2-3 more times. The patient underwent hypothermia protocol. Patient also had a chest tube placed due to pneumothorax. Patient followed hypothermia protocol has been able to be arousable. No other events noted In terms of patient's renal history. Patient had a previous creatinine of 0.8 mg/dL on 2016. On admission patient had a creatinine 1.25 mg/dL which has been declining over the last 72 hours. Patient is nonoliguric with approximately 30- 40 cc of urinary output. Patient did not receive any, contrast exposure. There have been no reports of any rashes no hemoptysis hematemesis or hematochezia Unable to obtain Past Medical History Per HPI Past Surgical History Unknown Social History Smoking Status: Unknown if ever smoked Exam/Review of Systems Vital Signs Vitals Vital Signs Date Time Temp Pulse Resp B/P Pulse Ox O2 Delivery O2 Flow Rate FiO2 02/17/17 11:43 72 99 55 02/17/17 09:45 26 77/64 02/17/17 09:00 Mechanical Ventilator 02/17/17 08:00 98.9 Intake and Output 02/16/17 02/16/17 02/17/17 14:59 22:59 06:59 Intake Total 1481.25 ml 1148.52 ml 1049.25 ml Output Total 122 ml 333 ml 388 ml Balance 1359.25 ml 815.52 ml 661.25 ml Exam General: The patient is intubated, sedated, not in acute distress. HEENT: Atraumatic, normocephalic. The pupils are equal and symmetric Neck: Supple Chest: Chest tube in left axillary region Lungs: Decreased breath sounds bilateral lower lung field Heart: Normal S1-S2, regular rate Abdomen: Soft , nontender, nondistended , bowel sounds are present. Extremities: Normal to inspection, no edema no cyanosis Neurologic: Sedated Results Result Diagram: 02/17/17 0350 02/17/17 0350 Results 24 hrs Laboratory Tests Test 02/16/17 13:06 02/16/17 17:29 02/16/17 20:58 02/17/17 00:41 Bedside Glucose 145 133 138 141 Test 02/17/17 03:50 02/17/17 05:00 02/17/17 05:31 02/17/17 08:37 White Blood Count 15.1 H Red Blood Count 2.91 L Hemoglobin 9.6 L Hematocrit 28.6 L Mean Corpuscular Volume 98.3 Mean Corpuscular Hemoglobin 33.0 Mean Corpuscular Hemoglobin Concent 33.6 Red Cell Distribution Width 14.6 H Platelet Count 78 L Mean Platelet Volume 12.4 H Neutrophils % 85.9 H Lymphocytes % 7.7 L Monocytes % 5.9 Eosinophils % 0.0 Basophils % 0.1 Nucleated Red Blood Cells % 0.0 Neutrophils # 13.0 H Lymphocytes # 1.2 Monocytes # 0.9 Eosinophils # 0.0 Basophils # 0.0 Nucleated Red Blood Cells # 0.0 Sodium Level 139 Potassium Level 3.3 L Chloride Level 107 Carbon Dioxide Level 22 Anion Gap 13 Blood Urea Nitrogen 48 H Creatinine 2.34 H Glucose Level 140 Lactic Acid Level 3.5 H Calcium Level 6.9 L Phosphorus Level 4.4 Magnesium Level 1.8 Random Vancomycin Level 15.5 Blood Gas Specimen Source Blood arterial Arterial Blood Date Drawn 02/17/2017 4:58:01 AM Arterial Blood pH (Temp corrected) 7.390 Arterial Blood pCO2 (Temp correct) 37.3 Arterial Blood pO2 (Temp corrected) 67.6 L Arterial Blood HCO3 22.1 Arterial Blood Base Excess -2.5 Arterial Blood Oxygen Saturation 92.1 L Chris Test ACCEPTAB Arterial Blood Gas Puncture Site Right Radial Arterial Blood Carboxyhemoglobin 0.3 Arterial Blood Methemoglobin 0.2 Blood Gas A-a O2 Differential 283.1 H Oxyhemoglobin Percent 91.6 L Total Hemoglobin 10.4 L Blood Gas Temperature 37.0 Blood Gas Respiration Rate 26.0 Blood Gas Actual Respiration Rate 26 Blood Gas Modality VENT - AC FiO2 55.0 Blood Gas Tidal Volume 500.0 Blood Gas Low PEEP Setting 8.0 Blood Gas Notified Whom RTR Blood Gas Notified Time 02/17/2017 5:44:40 AM Bedside Glucose 128 94 Medications Medications Current Medications Fentanyl (Sublimaze) 25 mcg Q10M PRN IV SEDATION; Start 02/14/17 at 12:30 Ondansetron HCl (Zofran Inj) 4 mg Q6H PRN IV NAUSEA AND/OR VOMITING; Start 02/14 at 16:00 Morphine Sulfate (morphine) 2 mg Q4H PRN IV SEVERE PAIN LEVEL 7-10 Last administered on 02/17/17 10:46; Admin Dose 2 MG; Start 02/14/17 at 16:00 Pantoprazole 40 mg 40 mg DAILY@06 IV Last administered on 02/17/17 05:32; Admin Dose 40 MG; Start 02/15/17 at 06:00 Amiodarone HCl/ Dextrose (Cordarone Iv/ D5W) 500 ml @ 0 mls/hr Q0M IV Last administered on 02/14/17 17:51; Admin Dose 33.3 MLS/HR; Start 02/14/17 at 17:00; Status Future Hold Acetaminophen (Tylenol Supp) 650 mg Q4H PRN [place] TEMP > 37C; Start 02/14/17 at 18: 00 Acetaminophen (Tylenol Liquid) 650 mg Q4H PRN PO TEMP > 37C; Start 02/14/17 at 18:00 Eye Lubricant (Akwa Oint) 1 applic Q6 BOTH EYES Last administered on 02/17/17 12:19; Admin Dose 1 APPLIC; Start 02/14/17 at 18:00 Eye Lubricant 2 drop 2 drop Q6 BOTH EYES Last administered on 02/17/17 12:19; Admin Dose 2 DROP; Start 02/14/17 at 18:00 Norepinephrine 16 mg/Dextrose 500 ml @ 0 mls/hr TITRATE IV Last administered on 02/17/17 00:44; Admin Dose 45 MLS/HR; Start 02/14/17 at 22:00 Azithromycin/ Sodium Chloride (Zithromax/NS) 250 ml @ 250 mls/hr DAILY IVPB Last administered on 02/17/17 08:38; Admin Dose 250 MLS/HR; Start 02/15/17 at 10 :00 Aspirin 300 mg 300 mg DAILY [place] Last administered on 02/17/17 09:41; Admin Dose 300 MG; Start 02/15/17 at 11:00 Phenylephrine HCl/ Dextrose (Fritz-Syneph/D5W) 500 ml @ 75 mls/hr TITRATE IV ; Start 02/16/17 at 03:30 Insulin Aspart (Novolog Insulin Pen) NOVOLOG *MILD* ALGORI... Q4 SC Last administered on 02/17/17 00:43; Admin Dose 1 UNIT; Start 02/16/17 at 13:00 Miscellaneous Information 1 ea NOTE XX ; Start 02/16/17 at 11:30 Glucose (Glutose) 15 gm Q15M PRN PO DECREASED GLUCOSE; Start 02/16/17 at 11:30 Glucose (Glutose) 22.5 gm Q15M PRN PO DECREASED GLUCOSE; Start 02/16/17 at 11:30 Dextrose (D50w Syringe) 25 ml Q15M PRN IV DECREASED GLUCOSE; Start 02/16/17 at 11:30 Dextrose (D50w Syringe) 50 ml Q15M PRN IV DECREASED GLUCOSE; Start 02/16/17 at 11:30 Glucagon (Glucagen) 1 mg Q15M PRN IM DECREASED GLUCOSE; Start 02/16/17 at 11:30 Glucose 15 gm 15 gm Q15M PRN BUCCAL DECREASED GLUCOSE; Start 02/16/17 at 11:30 Piperacillin Sod/ Tazobactam Sod 50 ml @ 100 mls/hr Q6 IVPB Last administered on 02/17/17 12:24; Admin Dose 100 MLS/HR; Start 02/16/17 at 18:00 Vasopressin 60 unit/Dextrose 60 ml @ 1.8 mls/hr Q12H IV ; Start 02/16/17 at 13: 00 Potassium Chloride 250 ml @ 62.5 mls/hr Q4H IVPB Last administered on 10:46; Admin Dose 62.5 MLS/HR; Start 02/17/17 at 07:00; Stop 02/17/17 at 14 :59 Sodium Chloride (NS) 1,000 ml @ 75 mls/hr [id number] IV Last administered on 02/17 12:19; Admin Dose 75 MLS/HR; Start 02/17/17 at 12:00 JENSEN OLIVIER DO Feb 17, 2017 12:36
[2017-02-17 13:41] LABS: ADD UMIC YES; UR AMORPHOUS CRYSTAL FEW /HPF (NONE SEEN); UR ASCORBIC ACID NEGATIVE (NEGATIVE); UR BILIRUBIN (Dip) NEGATIVE (NEGATIVE); UR BLOOD (Dip) 2+ mg/dL (NEGATIVE); UR CLARITY SLIGHTLY CLOUDY (CLEAR); UR COLOR YELLOW (YELLOW); UR GLUCOSE (Dip) NEGATIVE (NEGATIVE); UR KETONES (Dip) NEGATIVE (NEGATIVE); UR LEUKOCYTE ESTERASE (Dip) 3+ Leu/ul (NEGATIVE); UR NITRITE (Dip) NEGATIVE (NEGATIVE); UR RBC 18 /HPF (0-5); UR SPECIFIC GRAVITY (Dip) 1.021 (1.003-1.030); UR TOTAL PROTEIN (Dip) 1+ mg/dl (NEGATIVE); UR UROBILINOGEN (Dip) NEGATIVE (NEGATIVE)
--- NOTE | 2017-02-17 13:50 | RADRPT ---
Vent Rate: 69 bpm RR Interval: 0 msec IN Interval: 210 msec QRS Duration: 100 msec QT Interval: 386 msec QTC Interval: 413 msec P-R-T [place]: 55 - 76 - 71 degrees Sinus rhythm with 1st degree AV block Low voltage QRS Anterolateral infarct , age undetermined Abnormal ECG Electronically Signed By: Casey Schuler [id number]
--- NOTE | 2017-02-17 14:56 | RADRPT ---
PROCEDURE: Retroperitoneal US. CLINICAL INDICATION: Renal insufficiency TECHNIQUE: Multiple sonographic images of the kidneys and retroperitoneum were obtained. The imag es were reviewed on a PACS workstation. COMPARISON: No prior studies are available for comparison. FINDINGS: The kidneys are normal in size, contour, cortical thickness and cortical echogenicity. The right kidney measures 10.6 cm. The left kidney measures 10.9 cm. There is a 1.4 cm simple cyst in the left kidney. No kidney stones are visualized. There is no evidence for hydronephrosis. The urinary bladder is decompressed by a Patel catheter. RPTAT: AA IMPRESSION: 1.4 cm simple cyst in the left kidney. No evidence of hydronephrosis. .Yaya Altamirano MD, Date Time Electronically viewed and signed by .Yaya Altamirano MD, MD on 02/17/2017 14:55 .S/
[2017-02-17] MEDS ORDERED: VANCOMYCIN 1.25 GM in SOD CHLORIDE 0.9% 250 ML IVPB SCH (15:00)
--- NOTE | 2017-02-17 16:34 | CONS ---
Date/Time of Note Date/Time of Note DATE: 02/17/17 TIME: 16:32 Assessment/Plan Assessment/Plan Additional Assessment/Plan Cardiopulmonary arrest Septic shock Vent dependent respiratory failure Cardiomyopathy with ejection fraction 20% Non-ST elevation MS Acute kidney injury -Patient status post hypothermia protocol. Continue to titrate IV pressors as blood pressure permits. Continue aspirin and statin therapy, no beta-naida given hypotension as well as BERTHA inhibitor Consultation Date/Type/Reason Admit Date/Time Feb 14, 2017 at 16:02 Type of Consultation: cv 24 HR Interval Summary Free Text/Dictation Patient seen and examined, sedation increased because of agitation and IV pressor requirements increased Exam/Review of Systems Vital Signs Vitals Vital Signs Date Time Temp Pulse Resp B/P Pulse Ox O2 Delivery O2 Flow Rate FiO2 02/17/17 16:00 97.9 73 26 102/72 100 Mechanical Ventilator 02/17/17 15:46 55 Intake and Output 02/16/17 02/16/17 02/17/17 15:00 23:00 07:00 Intake Total 1439.00 ml 1077.27 ml 1126.75 ml Output Total 122 ml 321 ml 374 ml Balance 1317.00 ml 756.27 ml 752.75 ml Exam Sedated and intubated, no apparent distress Head: normocephalic ENMT: intubated Respiratory: other (Coarse breath sounds bilaterally, no wheezing) Cardiovascular: other (S1-S2 heard), regular rate and rhythm Gastrointestinal: bowel sounds, non-tender, soft Extremities: other (No edema) Results Result Diagram: 02/17/17 0350 02/17/17 0350 Results 24 hrs Laboratory Tests Test 02/16/17 17:29 02/16/17 20:58 02/17/17 00:41 02/17/17 03:50 Bedside Glucose 133 138 141 White Blood Count 15.1 H Red Blood Count 2.91 L Hemoglobin 9.6 L Hematocrit 28.6 L Mean Corpuscular Volume 98.3 Mean Corpuscular Hemoglobin 33.0 Mean Corpuscular Hemoglobin Concent 33.6 Red Cell Distribution Width 14.6 H Platelet Count 78 L Mean Platelet Volume 12.4 H Neutrophils % 85.9 H Lymphocytes % 7.7 L Monocytes % 5.9 Eosinophils % 0.0 Basophils % 0.1 Nucleated Red Blood Cells % 0.0 Neutrophils # 13.0 H Lymphocytes # 1.2 Monocytes # 0.9 Eosinophils # 0.0 Basophils # 0.0 Nucleated Red Blood Cells # 0.0 Sodium Level 139 Potassium Level 3.3 L Chloride Level 107 Carbon Dioxide Level 22 Anion Gap 13 Blood Urea Nitrogen 48 H Creatinine 2.34 H Glucose Level 140 Lactic Acid Level 3.5 H Calcium Level 6.9 L Phosphorus Level 4.4 Magnesium Level 1.8 Random Vancomycin Level 15.5 Test 02/17/17 05:00 02/17/17 05:31 02/17/17 08:37 02/17/17 12:18 Blood Gas Specimen Source Blood arterial Arterial Blood Date Drawn 02/17/2017 4:58:01 AM Arterial Blood pH (Temp corrected) 7.390 Arterial Blood pCO2 (Temp correct) 37.3 Arterial Blood pO2 (Temp corrected) 67.6 L Arterial Blood HCO3 22.1 Arterial Blood Base Excess -2.5 Arterial Blood Oxygen Saturation 92.1 L Chris Test ACCEPTAB Arterial Blood Gas Puncture Site Right Radial Arterial Blood Carboxyhemoglobin 0.3 Arterial Blood Methemoglobin 0.2 Blood Gas A-a O2 Differential 283.1 H Oxyhemoglobin Percent 91.6 L Total Hemoglobin 10.4 L Blood Gas Temperature 37.0 Blood Gas Respiration Rate 26.0 Blood Gas Actual Respiration Rate 26 Blood Gas Modality VENT - AC FiO2 55.0 Blood Gas Tidal Volume 500.0 Blood Gas Low PEEP Setting 8.0 Blood Gas Notified Whom RTR Blood Gas Notified Time 02/17/2017 5:44:40 AM Bedside Glucose 128 94 99 Test 02/17/17 12:26 Urine Color YELLOW Urine Clarity SLIGHTLY CLOUDY A Urine pH 5.0 Urine Specific [place] 1.021 Urine Ketones NEGATIVE Urine Nitrite NEGATIVE Urine Bilirubin NEGATIVE Urine Urobilinogen NEGATIVE Urine Leukocyte Esterase 3+ H Urine Microscopic RBC 18 H Urine Microscopic WBC 19 H Urine Amorphous Crystals FEW A Urine Hemoglobin 2+ H Urine Random Creatinine 87.50 Urine Random Sodium 27 L Urine Glucose NEGATIVE Urine Total Protein 68.0 H Medications Medications Current Medications Fentanyl (Sublimaze) 25 mcg Q10M PRN IV SEDATION; Start 02/14/17 at 12:30 Ondansetron HCl (Zofran Inj) 4 mg Q6H PRN IV NAUSEA AND/OR VOMITING; Start 02/14 at 16:00 Morphine Sulfate (morphine) 2 mg Q4H PRN IV SEVERE PAIN LEVEL 7-10 Last administered on 02/17/17 10:46; Admin Dose 2 MG; Start 02/14/17 at 16:00 Pantoprazole 40 mg 40 mg DAILY@06 IV Last administered on 02/17/17 05:32; Admin Dose 40 MG; Start 02/15/17 at 06:00 Amiodarone HCl/ Dextrose (Cordarone Iv/ D5W) 500 ml @ 0 mls/hr Q0M IV Last administered on 02/14/17 17:51; Admin Dose 33.3 MLS/HR; Start 02/14/17 at 17:00; Status Future Hold Acetaminophen (Tylenol Supp) 650 mg Q4H PRN [place] TEMP > 37C; Start 02/14/17 at 18: 00 Acetaminophen (Tylenol Liquid) 650 mg Q4H PRN PO TEMP > 37C; Start 02/14/17 at 18:00 Eye Lubricant (Akwa Oint) 1 applic Q6 BOTH EYES Last administered on 02/17/17 12:19; Admin Dose 1 APPLIC; Start 02/14/17 at 18:00 Eye Lubricant 2 drop 2 drop Q6 BOTH EYES Last administered on 02/17/17 12:19; Admin Dose 2 DROP; Start 02/14/17 at 18:00 Norepinephrine 16 mg/Dextrose 500 ml @ 0 mls/hr TITRATE IV Last administered on 02/17/17 00:44; Admin Dose 45 MLS/HR; Start 02/14/17 at 22:00 Azithromycin/ Sodium Chloride (Zithromax/NS) 250 ml @ 250 mls/hr DAILY IVPB Last administered on 02/17/17 08:38; Admin Dose 250 MLS/HR; Start 02/15/17 at 10 :00 Aspirin 300 mg 300 mg DAILY [place] Last administered on 02/17/17 09:41; Admin Dose 300 MG; Start 02/15/17 at 11:00 Phenylephrine HCl/ Dextrose (Fritz-Syneph/D5W) 500 ml @ 75 mls/hr TITRATE IV ; Start 02/16/17 at 03:30 Insulin Aspart (Novolog Insulin Pen) NOVOLOG *MILD* ALGORI... Q4 SC Last administered on 02/17/17 00:43; Admin Dose 1 UNIT; Start 02/16/17 at 13:00 Miscellaneous Information 1 ea NOTE XX ; Start 02/16/17 at 11:30 Glucose (Glutose) 15 gm Q15M PRN PO DECREASED GLUCOSE; Start 02/16/17 at 11:30 Glucose (Glutose) 22.5 gm Q15M PRN PO DECREASED GLUCOSE; Start 02/16/17 at 11:30 Dextrose (D50w Syringe) 25 ml Q15M PRN IV DECREASED GLUCOSE; Start 02/16/17 at 11:30 Dextrose (D50w Syringe) 50 ml Q15M PRN IV DECREASED GLUCOSE; Start 02/16/17 at 11:30 Glucagon (Glucagen) 1 mg Q15M PRN IM DECREASED GLUCOSE; Start 02/16/17 at 11:30 Glucose 15 gm 15 gm Q15M PRN BUCCAL DECREASED GLUCOSE; Start 02/16/17 at 11:30 Piperacillin Sod/ Tazobactam Sod 50 ml @ 100 mls/hr Q6 IVPB Last administered on 02/17/17 12:24; Admin Dose 100 MLS/HR; Start 02/16/17 at 18:00 Vasopressin 60 unit/Dextrose 60 ml @ 1.8 mls/hr Q12H IV ; Start 02/16/17 at 13: 00 Sodium Chloride 1,000 ml @ 75 mls/hr [id number] IV Last administered on 12:19; Admin Dose 75 MLS/HR; Start 02/17/17 at 12:00 Vancomycin HCl/ Sodium Chloride (Vancocin/NS) 250 ml @ 83.333 mls/ hr ONCE IVPB Last administered on 02/17/17 15:25; Admin Dose 83.333 MLS/HR; Start 05/27 at 15:00; Stop 02/17/17 at 17:00 Casey Schuler DO Feb 17, 2017 16:34
[2017-02-17] MEDS: ATORVASTATIN 20 MG TAB NGT SCH (20:34)
[2017-02-18] VITALS (102 sets, daily range): BP systolic 77–112; BP diastolic 53–82; PULSE 73–97; RESP 16–32
[2017-02-18] MEDS: OCULAR LUBRICANT 3.5 GM OPH OINT BOTH EYES SCH ×4 (00:26→17:06)
[2017-02-18] MEDS: PIPER-TAZO 2.25 GM (PMX) 50 ML IVPB SCH ×4 (00:26→17:05)
[2017-02-18] MEDS: VASOPRESSIN 60 UNIT in DEXTROSE 5% 57 ML IV SCH ×2 (00:26→12:34)
[2017-02-18] MEDS: ARTIFICIAL TEARS 15 ML OPH BOTH EYES SCH ×4 (00:26→17:06)
[2017-02-18] MEDS: INSULIN ASPART [NOVOLOG] 3 ML PEN SC SCH ×6 (00:37→20:24)
[2017-02-18] MEDS: SOD CHLORIDE 0.9% 1,000 ML IV SCH ×3 (01:20→17:05)
[2017-02-18] MEDS: MIDAZOLAM (DRIP) 50 mg/50 mL 50 ML IV SCH ×3 (02:12→23:05)
[2017-02-18 05:38] LABS: ADD SCAN DIFF NO
[2017-02-18] MEDS: PANTOPRAZOLE 40 MG INJ IV SCH (05:38)
[2017-02-18 05:52] LABS: ABNORMAL IP MESSAGE 1; BASOPHILS % 0.1 % (0.0-2.0); HEMATOCRIT 25.1 % (42.0-52.0); HEMOGLOBIN 8.3 g/dl (14.0-18.0); LYMPHOCYTES # 1.3 10^3/ul (0.8-2.9); MEAN CORPUSCULAR HEMOGLOBIN 33.1 pg (29.0-33.0); MEAN CORPUSCULAR HGB CONC 33.1 g/dl (32.0-37.0); MONOCYTE # 0.8 10^3/ul (0.3-0.9); MONOCYTES % 5.9 % (0.0-11.0); NEUTROPHIL # 10.9 10^3/ul (1.6-7.5); NEUTROPHILS % 83.2 % (39.0-77.0); NUCLEATED RED BLOOD CELLS # 0.1 10^3/ul (0.0-0.0); NUCLEATED RED BLOOD CELLS% 0.6 /100WBC (0.0-0.0); PLATELET COUNT 66 10^3/UL (140-415); RED BLOOD COUNT 2.51 10^6/ul (4.70-6.10); RED CELL DISTRIBUTION WIDTH 15.1 % (11.5-14.5); WHITE BLOOD COUNT 13.1 10^3/ul (4.8-10.8)
[2017-02-18 06:14] LABS: CREATININE 2.3 mg/dl (0.61-1.24); PHOSPHORUS 2.7 mg/dl (2.5-4.9); POTASSIUM 3.8 mmol/L (3.5-5.1)
[2017-02-18 08:02] LABS: AADO2 Arterial 122.8 mmHg (7.0-24.0); Allen Test ACCEPTAB; Arterial Base Excess 0.5 mmol/L (-3.0-3); Arterial COHb 0 % (0.0-3.0); Arterial Fraction of Oxyhgb 89.4 % (93.0-99.0); Arterial HCO3 23.1 mmol/L (22.0-26.0); Arterial MetHb 0 % (0.0-1.5); Arterial Total Hemglobin 8.7 g/dl (12.0-18.0); MODE VENT - AC
[2017-02-18] MEDS: ASPIRIN 81 MG TAB GTB SCH (08:41)
[2017-02-18] MEDS: AZITHROMYCIN 500 MG in SOD CHLORIDE 0.9% 250 ML IVPB SCH (08:44)
--- NOTE | 2017-02-18 09:19 | RADRPT ---
PROCEDURE: XR Chest 1 View. CLINICAL INDICATION: Shortness of breath. TECHNIQUE: AP view of the chest was obtained. COMPARISON: Yesterday. FINDINGS: The heart size is within normal limits. Calcified atherosclerosis is noted in the aorta. Endotrache al and nasogastric tubes are stable. The lungs are hyperexpanded. Diffuse interstitial prominence in both lungs is unchanged. Patchy infiltrates throughout the right lung, combined small pleural ef fusion are stable. Atelectasis versus mild infiltrates are noted in the left lower lobe. Left ches t tube is stable. No pneumothorax as visualized. The osseous structures are osteopenic, but appear grossly intact. IMPRESSION: Calcified atherosclerosis in the aorta. Stable left chest tube. No visualized pneumothorax. Hyperexpanded lungs with stable interstitial prominence in both lungs. Stable patchy infiltrates throughout the right lung, combined small pleural effusion. Atelectasis versus minimal infiltrates in the left lower lobe. RPTAT: AA .Maurizio Orozco MD, Date Time Electronically viewed and signed by .Maurizio Orozco MD, on 02/18/2017 09:18 .P/
--- NOTE | 2017-02-18 09:32 | PN ---
Date/Time of Note Date/Time of Note DATE: 02/18/17 TIME: 09:29 Assessment/Plan VTE Prophylaxis VTE Prophylaxis Intervention: other Lines/Catheters IV Catheter Type (from Nrsg): Central Line Central line still needed: Yes Urinary Cath still in place: Yes Reason Cath still needed: urinary retention Assessment/Plan Chief Complaint/Hosp Course 1. Nonoliguric acute kidney injury with previous baseline creatinine 0.8 mg/dL. -Etiology of CROW secondary to ATN due to ischemic hypoperfusion shock. -Urinalysis was reviewed evidence of proteinuria no evidence of active sediment -Renal function is stabilized over the last 24 hours -Continue current treatment plan continue IV fluids, keep map greater than 65. -Continue supportive care, renally dose all meds, avoid nephrotoxic 2. Anemia. -Monitor H&H levels 3. Mineral bone disorder -Monitor calcium phosphorus levels 4. Hypokalemia -Improved continue to monitor - 5. Respiratory alkalemia. -Continue to monitor 6. Cardiac arrest. Patient status post hypothermia protocol -Follow-up with cardiology 7. Ventilator dependent respiratory failure -Vent settings ABGs reviewed -Follow-up with pulmonary 8. Pneumothorax -Status post chest tube placement, continue to monitor 9. Sepsis with bacteremia -Continue antibiotic regimen -Cultures reviewed -Monitor closely Problems: Subjective 24 Hr Interval Summary Free Text/Dictation Patient critically ill but stable Urinary output has been adequate. No other events noted overnight Exam/Review of Systems Vital Signs Vitals Vital Signs Date Time Temp Pulse Resp B/P Pulse Ox O2 Delivery O2 Flow Rate FiO2 02/18/17 08:00 35 02/18/17 07:00 80 16 109/73 99 Mechanical Ventilator 02/18/17 04:00 99.8 Intake and Output 02/17/17 02/17/17 02/18/17 15:00 23:00 07:00 Intake Total 1501.97 ml 1256.36 ml 1246 ml Output Total 294 ml 386 ml 498 ml Balance 1207.97 ml 870.36 ml 748 ml Exam HEENT: Head is normocephalic. NECK: Supple. HEART: Irregular LUNGS: Show diminished breath sounds at base. ABDOMEN: Soft, nontender to palpation without rebound or guarding. EXTREMITIES: Negative for clubbing, cyanosis. DERMATOLOGIC: No rashes. MUSCULOSKELETAL: No joint effusions, NEUROLOGIC: No change in exam. Results Result Diagram: 02/18/17 0510 02/18/17 0510 Results 24 hrs Laboratory Tests Test 02/17/17 12:18 02/17/17 12:26 02/17/17 17:14 02/17/17 20:33 Bedside Glucose 99 93 85 Urine Color YELLOW Urine Clarity SLIGHTLY CLOUDY A Urine pH 5.0 Urine Specific [place] 1.021 Urine Ketones NEGATIVE Urine Nitrite NEGATIVE Urine Bilirubin NEGATIVE Urine Urobilinogen NEGATIVE Urine Leukocyte Esterase 3+ H Urine Microscopic RBC 18 H Urine Microscopic WBC 19 H Urine Amorphous Crystals FEW A Urine Hemoglobin 2+ H Urine Random Creatinine 87.50 Urine Random Sodium 27 L Urine Glucose NEGATIVE Urine Total Protein 68.0 H Test 02/18/17 00:36 02/18/17 05:10 02/18/17 05:37 02/18/17 07:00 Bedside Glucose 89 130 White Blood Count 13.1 H Red Blood Count 2.51 L Hemoglobin 8.3 L Hematocrit 25.1 L Mean Corpuscular Volume 100.0 Mean Corpuscular Hemoglobin 33.1 H Mean Corpuscular Hemoglobin Concent 33.1 Red Cell Distribution Width 15.1 H Platelet Count 66 L Mean Platelet Volume 12.0 H Neutrophils % 83.2 H Lymphocytes % 10.0 L Monocytes % 5.9 Eosinophils % 0.0 Basophils % 0.1 Nucleated Red Blood Cells % 0.6 H Neutrophils # 10.9 H Lymphocytes # 1.3 Monocytes # 0.8 Eosinophils # 0.0 Basophils # 0.0 Nucleated Red Blood Cells # 0.1 H Sodium Level 135 Potassium Level 3.8 Chloride Level 108 Carbon Dioxide Level 26 Anion Gap 5 #L Blood Urea Nitrogen 48 H Creatinine 2.30 H Glucose Level 118 Calcium Level 7.0 L Phosphorus Level 2.7 Magnesium Level 2.0 Blood Gas Specimen Source Blood arterial Arterial Blood Date Drawn 02/18/2017 7:20:45 AM Arterial Blood pH (Temp corrected) 7.508 H Arterial Blood pCO2 (Temp correct) 29.8 L Arterial Blood pO2 (Temp corrected) 56.1 L Arterial Blood HCO3 23.1 Arterial Blood Base Excess 0.5 Arterial Blood Oxygen Saturation 89.4 L Chris Test ACCEPTAB Arterial Blood Gas Puncture Site Right Radial Arterial Blood Carboxyhemoglobin 0 Arterial Blood Methemoglobin 0 Blood Gas A-a O2 Differential 122.8 H Oxyhemoglobin Percent 89.4 L Total Hemoglobin 8.7 L Blood Gas Temperature 37.0 Blood Gas Respiration Rate 26.0 Blood Gas Actual Respiration Rate 27 Blood Gas Modality VENT - AC FiO2 30.0 Blood Gas Tidal Volume 500.0 Blood Gas Low PEEP Setting 5.0 Blood Gas Notified Whom JLD Blood Gas Notified Time 02/18/2017 8:02:23 AM Test 02/18/17 08:43 Bedside Glucose 91 Medications Medications Current Medications Fentanyl (Sublimaze) 25 mcg Q10M PRN IV SEDATION; Start 02/14/17 at 12:30 Ondansetron HCl (Zofran Inj) 4 mg Q6H PRN IV NAUSEA AND/OR VOMITING; Start 02/14 at 16:00 Morphine Sulfate (morphine) 2 mg Q4H PRN IV SEVERE PAIN LEVEL 7-10 Last administered on 02/17/17 10:46; Admin Dose 2 MG; Start 02/14/17 at 16:00 Pantoprazole 40 mg 40 mg DAILY@06 IV Last administered on 02/18/17 05:38; Admin Dose 40 MG; Start 02/15/17 at 06:00 Amiodarone HCl/ Dextrose (Cordarone Iv/ D5W) 500 ml @ 0 mls/hr Q0M IV Last administered on 02/14/17 17:51; Admin Dose 33.3 MLS/HR; Start 02/14/17 at 17:00; Status Future Hold Acetaminophen (Tylenol Supp) 650 mg Q4H PRN [place] TEMP > 37C; Start 02/14/17 at 18: 00 Acetaminophen (Tylenol Liquid) 650 mg Q4H PRN PO TEMP > 37C; Start 02/14/17 at 18:00 Eye Lubricant (Akwa Oint) 1 applic Q6 BOTH EYES Last administered on 02/18/17 05:38; Admin Dose 1 APPLIC; Start 02/14/17 at 18:00 Eye Lubricant 2 drop 2 drop Q6 BOTH EYES Last administered on 02/18/17 05:38; Admin Dose 2 DROP; Start 02/14/17 at 18:00 Norepinephrine 16 mg/Dextrose 500 ml @ 0 mls/hr TITRATE IV Last administered on 02/18/17 08:44; Admin Dose 22.5 MLS/HR; Start 02/14/17 at 22:00 Azithromycin 500 mg/Sodium Chloride 250 ml @ 250 mls/hr DAILY IVPB Last administered on 02/18/17 08:44; Admin Dose 250 MLS/HR; Start 02/15/17 at 10:00 Phenylephrine HCl/ Dextrose (Fritz-Syneph/D5W) 500 ml @ 75 mls/hr TITRATE IV ; Start 02/16/17 at 03:30 Insulin Aspart (Novolog Insulin Pen) NOVOLOG *MILD* ALGORI... Q4 SC Last administered on 02/17/17 00:43; Admin Dose 1 UNIT; Start 02/16/17 at 13:00 Miscellaneous Information 1 ea NOTE XX ; Start 02/16/17 at 11:30 Glucose (Glutose) 15 gm Q15M PRN PO DECREASED GLUCOSE; Start 02/16/17 at 11:30 Glucose (Glutose) 22.5 gm Q15M PRN PO DECREASED GLUCOSE; Start 02/16/17 at 11:30 Dextrose (D50w Syringe) 25 ml Q15M PRN IV DECREASED GLUCOSE; Start 02/16/17 at 11:30 Dextrose (D50w Syringe) 50 ml Q15M PRN IV DECREASED GLUCOSE; Start 02/16/17 at 11:30 Glucagon (Glucagen) 1 mg Q15M PRN IM DECREASED GLUCOSE; Start 02/16/17 at 11:30 Glucose 15 gm 15 gm Q15M PRN BUCCAL DECREASED GLUCOSE; Start 02/16/17 at 11:30 Piperacillin Sod/ Tazobactam Sod 50 ml @ 100 mls/hr Q6 IVPB Last administered on 02/18/17 06:50; Admin Dose 100 MLS/HR; Start 02/16/17 at 18:00 Vasopressin 60 unit/Dextrose 60 ml @ 1.8 mls/hr Q12H IV ; Start 02/16/17 at 13: 00 Sodium Chloride (NS) 1,000 ml @ 75 mls/hr [id number] IV Last administered on 02/18 05:30; Admin Dose 75 MLS/HR; Start 02/17/17 at 12:00 Aspirin (Aspirin) 81 mg DAILY GTB Last administered on 02/18/17 08:41; Admin Dose 81 MG; Start 02/18/17 at 09:00 Atorvastatin Calcium (Lipitor) 20 mg HS NGT Last administered on 02/17/17 20: 34; Admin Dose 20 MG; Start 02/17/17 at 21:00 JENSEN OLIVIER DO Feb 18, 2017 09:32
--- NOTE | 2017-02-18 10:04 | PN ---
Date/Time of Note Date/Time of Note DATE: 02/18/17 TIME: 09:55 Assessment/Plan VTE Prophylaxis VTE Prophylaxis Intervention: SCD's Lines/Catheters [facility] Type [facility]from [facility] Central Line Central line still needed: Yes Urinary Cath still in place: Yes Reason Cath still needed: other (indicate) Assessment/Plan Chief Complaint/Hosp Course Chief Complaint/Hosp Course 1. Cardiac arrest secondary to V-fib status post ACLS with defibrillation and return of circulation Intubated and vent dependent at this time Status post hypothermia protocol Chest tube placed for pneumothorax caused by repeated chest compressions Cardiology consultation, patient does not meet criteria for emergent cardiac catheterization per fork truck operator on-call Broad-spectrum antibiotics 2. Acute respiratory distress secondary to cardiac arrest Continue vent management Pulmonology consultation appreciated 3. Pneumothorax secondary to repeated chest compressions status post chest tube placement 4. 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 Pancytopenia possibly secondary to sepsis-WBC has increased Continue antibiotics HIV negative 6. Acute kidney disease secondary to cardiac arrest IV fluid Nephrology has been consulted, follow-up renal panel in a.m. 7. Hyperglycemia-possibly reactive A1c is within normal limits 8. Hyponatremia likely secondary to dehydration-resolved IV fluids with normal saline 9. Bacteremia secondary to gram-positive cocci Vancomycin IV 10. Acute on chronic anemia, follow up stool for guaiac Follow-up hemoglobin hematocrit in a.m. Iron panel Prophylaxis: SCDs Problems: Subjective 24 Hr Interval Summary Free Text/Dictation No acute event Intubated, sedated and on pressors Pressors via norepinephrine 12 rey Sedated Via Versed Vent setting 450, FiO2 35% with PEEP of 5 OG tube feeding Exam/Review of Systems Vital Signs Vitals Vital Signs Date Time Temp Pulse Resp B/P Pulse Ox O2 Delivery O2 Flow Rate FiO2 02/18/17 08:00 35 02/18/17 08:00 85 02/18/17 07:00 16 109/73 99 Mechanical Ventilator 02/18/17 04:00 99.8 Intake and Output 02/17/17 02/17/17 02/18/17 15:00 23:00 07:00 Intake Total 1501.97 ml 1256.36 ml 1246 ml Output Total 294 ml 386 ml 498 ml Balance 1207.97 ml 870.36 ml 748 ml Exam General: The patient is sedated, not in acute distress. HEENT: Atraumatic, normocephalic. The pupils are equal and equal. Poor dentition Neck: Supple Chest: Normal Lungs: Decreased breath sounds bilateral lower lung field Heart: Normal S1-S2, RRR Abdomen: Soft , nontender, nondistended , bowel sounds are present. Extremities: Normal to inspection, no edema no cyanosis Neurologic: Sedated, minimal response to sternal rub Results Result Diagram: 02/18/17 0510 02/18/17 0510 Results 24 hrs Laboratory Tests Test 02/17/17 12:18 02/17/17 12:26 02/17/17 17:14 02/17/17 20:33 Bedside Glucose 99 93 85 Urine Color YELLOW Urine Clarity SLIGHTLY CLOUDY A Urine pH 5.0 Urine Specific [place] 1.021 Urine Ketones NEGATIVE Urine Nitrite NEGATIVE Urine Bilirubin NEGATIVE Urine Urobilinogen NEGATIVE Urine Leukocyte Esterase 3+ H Urine Microscopic RBC 18 H Urine Microscopic WBC 19 H Urine Amorphous Crystals FEW A Urine Hemoglobin 2+ H Urine Random Creatinine 87.50 Urine Random Sodium 27 L Urine Glucose NEGATIVE Urine Total Protein 68.0 H Test 02/18/17 00:36 02/18/17 05:10 02/18/17 05:37 02/18/17 07:00 Bedside Glucose 89 130 White Blood Count 13.1 H Red Blood Count 2.51 L Hemoglobin 8.3 L Hematocrit 25.1 L Mean Corpuscular Volume 100.0 Mean Corpuscular Hemoglobin 33.1 H Mean Corpuscular Hemoglobin Concent 33.1 Red Cell Distribution Width 15.1 H Platelet Count 66 L Mean Platelet Volume 12.0 H Neutrophils % 83.2 H Lymphocytes % 10.0 L Monocytes % 5.9 Eosinophils % 0.0 Basophils % 0.1 Nucleated Red Blood Cells % 0.6 H Neutrophils # 10.9 H Lymphocytes # 1.3 Monocytes # 0.8 Eosinophils # 0.0 Basophils # 0.0 Nucleated Red Blood Cells # 0.1 H Sodium Level 135 Potassium Level 3.8 Chloride Level 108 Carbon Dioxide Level 26 Anion Gap 5 #L Blood Urea Nitrogen 48 H Creatinine 2.30 H Glucose Level 118 Calcium Level 7.0 L Phosphorus Level 2.7 Magnesium Level 2.0 Blood Gas Specimen Source Blood arterial Arterial Blood Date Drawn 02/18/2017 7:20:45 AM Arterial Blood pH (Temp corrected) 7.508 H Arterial Blood pCO2 (Temp correct) 29.8 L Arterial Blood pO2 (Temp corrected) 56.1 L Arterial Blood HCO3 23.1 Arterial Blood Base Excess 0.5 Arterial Blood Oxygen Saturation 89.4 L Chris Test ACCEPTAB Arterial Blood Gas Puncture Site Right Radial Arterial Blood Carboxyhemoglobin 0 Arterial Blood Methemoglobin 0 Blood Gas A-a O2 Differential 122.8 H Oxyhemoglobin Percent 89.4 L Total Hemoglobin 8.7 L Blood Gas Temperature 37.0 Blood Gas Respiration Rate 26.0 Blood Gas Actual Respiration Rate 27 Blood Gas Modality VENT - AC FiO2 30.0 Blood Gas Tidal Volume 500.0 Blood Gas Low PEEP Setting 5.0 Blood Gas Notified Whom JLD Blood Gas Notified Time 02/18/2017 8:02:23 AM Test 02/18/17 08:43 Bedside Glucose 91 Medications Medications Current Medications Fentanyl (Sublimaze) 25 mcg Q10M PRN IV SEDATION; Start 02/14/17 at 12:30 Ondansetron HCl (Zofran Inj) 4 mg Q6H PRN IV NAUSEA AND/OR VOMITING; Start 02/14 at 16:00 Morphine Sulfate (morphine) 2 mg Q4H PRN IV SEVERE PAIN LEVEL 7-10 Last administered on 02/17/17 10:46; Admin Dose 2 MG; Start 02/14/17 at 16:00 Pantoprazole 40 mg 40 mg DAILY@06 IV Last administered on 02/18/17 05:38; Admin Dose 40 MG; Start 02/15/17 at 06:00 Amiodarone HCl/ Dextrose (Cordarone Iv/ D5W) 500 ml @ 0 mls/hr Q0M IV Last administered on 02/14/17 17:51; Admin Dose 33.3 MLS/HR; Start 02/14/17 at 17:00; Status Future Hold Acetaminophen (Tylenol Supp) 650 mg Q4H PRN [place] TEMP > 37C; Start 02/14/17 at 18: 00 Acetaminophen (Tylenol Liquid) 650 mg Q4H PRN PO TEMP > 37C; Start 02/14/17 at 18:00 Eye Lubricant (Akwa Oint) 1 applic Q6 BOTH EYES Last administered on 02/18/17 05:38; Admin Dose 1 APPLIC; Start 02/14/17 at 18:00 Eye Lubricant 2 drop 2 drop Q6 BOTH EYES Last administered on 02/18/17 05:38; Admin Dose 2 DROP; Start 02/14/17 at 18:00 Norepinephrine 16 mg/Dextrose 500 ml @ 0 mls/hr TITRATE IV Last administered on 02/18/17 08:44; Admin Dose 22.5 MLS/HR; Start 02/14/17 at 22:00 Azithromycin 500 mg/Sodium Chloride 250 ml @ 250 mls/hr DAILY IVPB Last administered on 02/18/17 08:44; Admin Dose 250 MLS/HR; Start 02/15/17 at 10:00 Phenylephrine HCl/ Dextrose (Fritz-Syneph/D5W) 500 ml @ 75 mls/hr TITRATE IV ; Start 02/16/17 at 03:30 Insulin Aspart (Novolog Insulin Pen) NOVOLOG *MILD* ALGORI... Q4 SC Last administered on 02/17/17 00:43; Admin Dose 1 UNIT; Start 02/16/17 at 13:00 Miscellaneous Information 1 ea NOTE XX ; Start 02/16/17 at 11:30 Glucose (Glutose) 15 gm Q15M PRN PO DECREASED GLUCOSE; Start 02/16/17 at 11:30 Glucose (Glutose) 22.5 gm Q15M PRN PO DECREASED GLUCOSE; Start 02/16/17 at 11:30 Dextrose (D50w Syringe) 25 ml Q15M PRN IV DECREASED GLUCOSE; Start 02/16/17 at 11:30 Dextrose (D50w Syringe) 50 ml Q15M PRN IV DECREASED GLUCOSE; Start 02/16/17 at 11:30 Glucagon (Glucagen) 1 mg Q15M PRN IM DECREASED GLUCOSE; Start 02/16/17 at 11:30 Glucose 15 gm 15 gm Q15M PRN BUCCAL DECREASED GLUCOSE; Start 02/16/17 at 11:30 Piperacillin Sod/ Tazobactam Sod 50 ml @ 100 mls/hr Q6 IVPB Last administered on 02/18/17 06:50; Admin Dose 100 MLS/HR; Start 02/16/17 at 18:00 Vasopressin 60 unit/Dextrose 60 ml @ 1.8 mls/hr Q12H IV ; Start 02/16/17 at 13: 00 Sodium Chloride (NS) 1,000 ml @ 50 mls/hr Q20H IV Last administered on 05:30; Admin Dose 75 MLS/HR; Start 02/17/17 at 12:00 Aspirin (Aspirin) 81 mg DAILY GTB Last administered on 02/18/17 08:41; Admin Dose 81 MG; Start 02/18/17 at 09:00 Atorvastatin Calcium (Lipitor) 20 mg HS NGT Last administered on 02/17/17 20: 34; Admin Dose 20 MG; Start 02/17/17 at 21:00 SEVERIANO LAUREANO MD Feb 18, 2017 10:03
--- NOTE | 2017-02-18 11:32 | CONS ---
Date/Time of Note Date/Time of Note DATE: 02/18/17 TIME: 11:30 Consult Date/Type/Reason Admit Date/Time Feb 14, 2017 at 16:02 Type of Consultation: Pulmonary Subjective Patient remains intubated on mechanical ventilation with vasopressor support. Intermittent agitation off sedation. Follow simple commands. Objective Vital Signs Date Time Temp Pulse Resp B/P Pulse Ox O2 Delivery O2 Flow Rate FiO2 02/18/17 10:45 76 19 96/72 98 02/18/17 10:00 Mechanical Ventilator 02/18/17 08:00 35 02/18/17 08:00 97.9 Intake and Output 02/17/17 02/17/17 02/18/17 14:59 22:59 06:59 Intake Total 1572.35 ml 1099.48 ml 1407 ml Output Total 267 ml 401 ml 510 ml Balance 1305.35 ml 698.48 ml 897 ml Exam PHYSICAL EXAMINATION GENERAL: Elderly gentleman, intubated on mechanical ventilation, opens eyes and appears somewhat agitated. Orally intubated. VITAL SIGNS: see below. HEENT: Pupils equal, round, and reactive to light. CARDIAC: S1, S2, 1/6 systolic ejection murmur CHEST: Diminished air entry bilaterally. ABDOMEN: Mildly distended. Bowel sounds present no guarding or rebound EXTREMITIES: No cyanosis, clubbing edema +1 NEUROLOGIC: Generalized weakness Results/Medications Result Diagram: 02/18/17 0510 02/18/17 0510 Results 24 hrs Laboratory Tests Test 02/17/17 12:18 02/17/17 12:26 02/17/17 17:14 02/17/17 20:33 Bedside Glucose 99 93 85 Urine Color YELLOW Urine Clarity SLIGHTLY CLOUDY A Urine pH 5.0 Urine Specific [place] 1.021 Urine Ketones NEGATIVE Urine Nitrite NEGATIVE Urine Bilirubin NEGATIVE Urine Urobilinogen NEGATIVE Urine Leukocyte Esterase 3+ H Urine Microscopic RBC 18 H Urine Microscopic WBC 19 H Urine Amorphous Crystals FEW A Urine Hemoglobin 2+ H Urine Random Creatinine 87.50 Urine Random Sodium 27 L Urine Glucose NEGATIVE Urine Total Protein 68.0 H Test 02/18/17 00:36 02/18/17 05:10 02/18/17 05:37 02/18/17 07:00 Bedside Glucose 89 130 White Blood Count 13.1 H Red Blood Count 2.51 L Hemoglobin 8.3 L Hematocrit 25.1 L Mean Corpuscular Volume 100.0 Mean Corpuscular Hemoglobin 33.1 H Mean Corpuscular Hemoglobin Concent 33.1 Red Cell Distribution Width 15.1 H Platelet Count 66 L Mean Platelet Volume 12.0 H Neutrophils % 83.2 H Lymphocytes % 10.0 L Monocytes % 5.9 Eosinophils % 0.0 Basophils % 0.1 Nucleated Red Blood Cells % 0.6 H Neutrophils # 10.9 H Lymphocytes # 1.3 Monocytes # 0.8 Eosinophils # 0.0 Basophils # 0.0 Nucleated Red Blood Cells # 0.1 H Sodium Level 135 Potassium Level 3.8 Chloride Level 108 Carbon Dioxide Level 26 Anion Gap 5 #L Blood Urea Nitrogen 48 H Creatinine 2.30 H Glucose Level 118 Calcium Level 7.0 L Phosphorus Level 2.7 Magnesium Level 2.0 Blood Gas Specimen Source Blood arterial Arterial Blood Date Drawn 02/18/2017 7:20:45 AM Arterial Blood pH (Temp corrected) 7.508 H Arterial Blood pCO2 (Temp correct) 29.8 L Arterial Blood pO2 (Temp corrected) 56.1 L Arterial Blood HCO3 23.1 Arterial Blood Base Excess 0.5 Arterial Blood Oxygen Saturation 89.4 L Chris Test ACCEPTAB Arterial Blood Gas Puncture Site Right Radial Arterial Blood Carboxyhemoglobin 0 Arterial Blood Methemoglobin 0 Blood Gas A-a O2 Differential 122.8 H Oxyhemoglobin Percent 89.4 L Total Hemoglobin 8.7 L Blood Gas Temperature 37.0 Blood Gas Respiration Rate 26.0 Blood Gas Actual Respiration Rate 27 Blood Gas Modality VENT - AC FiO2 30.0 Blood Gas Tidal Volume 500.0 Blood Gas Low PEEP Setting 5.0 Blood Gas Notified Whom JLD Blood Gas Notified Time 02/18/2017 8:02:23 AM Test 02/18/17 08:43 Bedside Glucose 91 Medications Current Medications Fentanyl (Sublimaze) 25 mcg Q10M PRN IV SEDATION; Start 02/14/17 at 12:30 Ondansetron HCl (Zofran Inj) 4 mg Q6H PRN IV NAUSEA AND/OR VOMITING; Start 02/14 at 16:00 Morphine Sulfate (morphine) 2 mg Q4H PRN IV SEVERE PAIN LEVEL 7-10 Last administered on 02/17/17 10:46; Admin Dose 2 MG; Start 02/14/17 at 16:00 Pantoprazole 40 mg 40 mg DAILY@06 IV Last administered on 02/18/17 05:38; Admin Dose 40 MG; Start 02/15/17 at 06:00 Amiodarone HCl/ Dextrose (Cordarone Iv/ D5W) 500 ml @ 0 mls/hr Q0M IV Last administered on 02/14/17 17:51; Admin Dose 33.3 MLS/HR; Start 02/14/17 at 17:00; Status Future Hold Acetaminophen (Tylenol Supp) 650 mg Q4H PRN [place] TEMP > 37C; Start 02/14/17 at 18: 00 Acetaminophen (Tylenol Liquid) 650 mg Q4H PRN PO TEMP > 37C; Start 02/14/17 at 18:00 Eye Lubricant (Akwa Oint) 1 applic Q6 BOTH EYES Last administered on 02/18/17 05:38; Admin Dose 1 APPLIC; Start 02/14/17 at 18:00 Eye Lubricant 2 drop 2 drop Q6 BOTH EYES Last administered on 02/18/17 05:38; Admin Dose 2 DROP; Start 02/14/17 at 18:00 Norepinephrine 16 mg/Dextrose 500 ml @ 0 mls/hr TITRATE IV Last administered on 02/18/17 08:44; Admin Dose 22.5 MLS/HR; Start 02/14/17 at 22:00 Azithromycin 500 mg/Sodium Chloride 250 ml @ 250 mls/hr DAILY IVPB Last administered on 02/18/17 08:44; Admin Dose 250 MLS/HR; Start 02/15/17 at 10:00 Phenylephrine HCl/ Dextrose (Fritz-Syneph/D5W) 500 ml @ 75 mls/hr TITRATE IV ; Start 02/16/17 at 03:30 Insulin Aspart (Novolog Insulin Pen) NOVOLOG *MILD* ALGORI... Q4 SC Last administered on 02/17/17 00:43; Admin Dose 1 UNIT; Start 02/16/17 at 13:00 Miscellaneous Information 1 ea NOTE XX ; Start 02/16/17 at 11:30 Glucose (Glutose) 15 gm Q15M PRN PO DECREASED GLUCOSE; Start 02/16/17 at 11:30 Glucose (Glutose) 22.5 gm Q15M PRN PO DECREASED GLUCOSE; Start 02/16/17 at 11:30 Dextrose (D50w Syringe) 25 ml Q15M PRN IV DECREASED GLUCOSE; Start 02/16/17 at 11:30 Dextrose (D50w Syringe) 50 ml Q15M PRN IV DECREASED GLUCOSE; Start 02/16/17 at 11:30 Glucagon (Glucagen) 1 mg Q15M PRN IM DECREASED GLUCOSE; Start 02/16/17 at 11:30 Glucose 15 gm 15 gm Q15M PRN BUCCAL DECREASED GLUCOSE; Start 02/16/17 at 11:30 Piperacillin Sod/ Tazobactam Sod 50 ml @ 100 mls/hr Q6 IVPB Last administered on 02/18/17 06:50; Admin Dose 100 MLS/HR; Start 02/16/17 at 18:00 Vasopressin 60 unit/Dextrose 60 ml @ 1.8 mls/hr Q12H IV ; Start 02/16/17 at 13: 00 Sodium Chloride (NS) 1,000 ml @ 50 mls/hr Q20H IV Last administered on 05:30; Admin Dose 75 MLS/HR; Start 02/17/17 at 12:00 Aspirin (Aspirin) 81 mg DAILY GTB Last administered on 02/18/17 08:41; Admin Dose 81 MG; Start 02/18/17 at 09:00 Atorvastatin Calcium (Lipitor) 20 mg HS NGT Last administered on 02/17/17 20: 34; Admin Dose 20 MG; Start 02/17/17 at 21:00 Assessment/Plan Chief Complaint/Hosp Course IMP: 1. Cardiopulmonary Arrest: query primary cardiac event leading to respiratory failure and multilobar aspiration pneumonia 2. Respiratory Failure/Vent 3. Multifocal pneumonia--likely aspiration 4. s/p VF 5. ARF 6. Barotrauma--s/p CPR 7. Hypoglycemia 8. Septic shock secondary to above 9. Encephalopathy toxic metabolic slowly improving RECS: 1. Vent support, if improved CPAP trial tomorrow 2. Continue IV fluids tube feeding 3. Titrate off neosynephrine gtt as it will impair afterload in setting of low EF 4. Levophed to MAP > 65 mm Hg; 5. Follow-up Cxs 6. Monitor neurological status 7. Broad spectrum abx 8. Follow renal fxn Discussed with staff at bedside 40 min cc time Problems: [facility] Feb 18, 2017 11:31
--- NOTE | 2017-02-18 16:20 | CONS ---
Date/Time of Note Date/Time of Note DATE: 02/18/17 TIME: 16:19 Assessment/Plan Assessment/Plan Additional Assessment/Plan Cardiopulmonary arrest Septic shock Vent dependent respiratory failure Cardiomyopathy with ejection fraction 20% Non-ST elevation MN Acute kidney injury -Patient status post hypothermia protocol. Continue to titrate IV pressors as blood pressure permits. Continue aspirin and statin therapy, no beta-naida given hypotension as well as BERTHA inhibitor given acute kidney injury. Consultation Date/Type/Reason Admit Date/Time Feb 14, 2017 at 16:02 Type of Consultation: cv 24 HR Interval Summary Free Text/Dictation Patient seen and examined, still needs IV pressor Exam/Review of Systems Vital Signs Vitals Vital Signs Date Time Temp Pulse Resp B/P Pulse Ox O2 Delivery O2 Flow Rate FiO2 02/18/17 15:30 84 23 94/53 99 02/18/17 15:00 Mechanical Ventilator 02/18/17 12:00 98.2 02/18/17 11:10 30 Intake and Output 02/17/17 02/17/17 02/18/17 15:00 23:00 07:00 Intake Total 1501.97 ml 1256.36 ml 1246 ml Output Total 294 ml 386 ml 498 ml Balance 1207.97 ml 870.36 ml 748 ml Exam Sedated and intubated, no apparent distress Head: normocephalic ENMT: intubated Respiratory: other (Coarse breath sounds bilaterally, no wheezing) Cardiovascular: other (S1-S2 heard), regular rate and rhythm Gastrointestinal: bowel sounds, non-tender, soft Extremities: other (No edema) Results Result Diagram: 02/18/17 0510 02/18/17 0510 Results 24 hrs Laboratory Tests Test 02/17/17 17:14 02/17/17 20:33 02/18/17 00:36 02/18/17 05:10 Bedside Glucose 93 85 89 White Blood Count 13.1 H Red Blood Count 2.51 L Hemoglobin 8.3 L Hematocrit 25.1 L Mean Corpuscular Volume 100.0 Mean Corpuscular Hemoglobin 33.1 H Mean Corpuscular Hemoglobin Concent 33.1 Red Cell Distribution Width 15.1 H Platelet Count 66 L Mean Platelet Volume 12.0 H Neutrophils % 83.2 H Lymphocytes % 10.0 L Monocytes % 5.9 Eosinophils % 0.0 Basophils % 0.1 Nucleated Red Blood Cells % 0.6 H Neutrophils # 10.9 H Lymphocytes # 1.3 Monocytes # 0.8 Eosinophils # 0.0 Basophils # 0.0 Nucleated Red Blood Cells # 0.1 H Sodium Level 135 Potassium Level 3.8 Chloride Level 108 Carbon Dioxide Level 26 Anion Gap 5 #L Blood Urea Nitrogen 48 H Creatinine 2.30 H Glucose Level 118 Calcium Level 7.0 L Phosphorus Level 2.7 Magnesium Level 2.0 Test 02/18/17 05:37 02/18/17 07:00 02/18/17 08:43 02/18/17 10:40 Bedside Glucose 130 91 Blood Gas Specimen Source Blood arterial Arterial Blood Date Drawn 02/18/2017 7:20:45 AM Arterial Blood pH (Temp corrected) 7.508 H Arterial Blood pCO2 (Temp correct) 29.8 L Arterial Blood pO2 (Temp corrected) 56.1 L Arterial Blood HCO3 23.1 Arterial Blood Base Excess 0.5 Arterial Blood Oxygen Saturation 89.4 L Chris Test ACCEPTAB Arterial Blood Gas Puncture Site Right Radial Arterial Blood Carboxyhemoglobin 0 Arterial Blood Methemoglobin 0 Blood Gas A-a O2 Differential 122.8 H Oxyhemoglobin Percent 89.4 L Total Hemoglobin 8.7 L Blood Gas Temperature 37.0 Blood Gas Respiration Rate 26.0 Blood Gas Actual Respiration Rate 27 Blood Gas Modality VENT - AC FiO2 30.0 Blood Gas Tidal Volume 500.0 Blood Gas Low PEEP Setting 5.0 Blood Gas Notified Whom JLD Blood Gas Notified Time 02/18/2017 8:02:23 AM Stool Occult Blood POSITIVE Test 02/18/17 11:34 Bedside Glucose 90 Medications Medications Current Medications Fentanyl (Sublimaze) 25 mcg Q10M PRN IV SEDATION; Start 02/14/17 at 12:30 Ondansetron HCl (Zofran Inj) 4 mg Q6H PRN IV NAUSEA AND/OR VOMITING; Start 02/14 at 16:00 Morphine Sulfate (morphine) 2 mg Q4H PRN IV SEVERE PAIN LEVEL 7-10 Last administered on 02/17/17 10:46; Admin Dose 2 MG; Start 02/14/17 at 16:00 Pantoprazole 40 mg 40 mg DAILY@06 IV Last administered on 02/18/17 05:38; Admin Dose 40 MG; Start 02/15/17 at 06:00 Amiodarone HCl/ Dextrose (Cordarone Iv/ D5W) 500 ml @ 0 mls/hr Q0M IV Last administered on 02/14/17 17:51; Admin Dose 33.3 MLS/HR; Start 02/14/17 at 17:00; Status Future Hold Acetaminophen (Tylenol Supp) 650 mg Q4H PRN [place] TEMP > 37C; Start 02/14/17 at 18: 00 Acetaminophen (Tylenol Liquid) 650 mg Q4H PRN PO TEMP > 37C; Start 02/14/17 at 18:00 Eye Lubricant (Akwa Oint) 1 applic Q6 BOTH EYES Last administered on 02/18/17 11:37; Admin Dose 1 APPLIC; Start 02/14/17 at 18:00 Eye Lubricant 2 drop 2 drop Q6 BOTH EYES Last administered on 02/18/17 11:37; Admin Dose 2 DROP; Start 02/14/17 at 18:00 Norepinephrine 16 mg/Dextrose 500 ml @ 0 mls/hr TITRATE IV Last administered on 02/18/17 08:44; Admin Dose 22.5 MLS/HR; Start 02/14/17 at 22:00 Azithromycin 500 mg/Sodium Chloride 250 ml @ 250 mls/hr DAILY IVPB Last administered on 02/18/17 08:44; Admin Dose 250 MLS/HR; Start 02/15/17 at 10:00 Phenylephrine HCl/ Dextrose (Fritz-Syneph/D5W) 500 ml @ 75 mls/hr TITRATE IV ; Start 02/16/17 at 03:30 Insulin Aspart (Novolog Insulin Pen) NOVOLOG *MILD* ALGORI... Q4 SC Last administered on 02/17/17 00:43; Admin Dose 1 UNIT; Start 02/16/17 at 13:00 Miscellaneous Information 1 ea NOTE XX ; Start 02/16/17 at 11:30 Glucose (Glutose) 15 gm Q15M PRN PO DECREASED GLUCOSE; Start 02/16/17 at 11:30 Glucose (Glutose) 22.5 gm Q15M PRN PO DECREASED GLUCOSE; Start 02/16/17 at 11:30 Dextrose (D50w Syringe) 25 ml Q15M PRN IV DECREASED GLUCOSE; Start 02/16/17 at 11:30 Dextrose (D50w Syringe) 50 ml Q15M PRN IV DECREASED GLUCOSE; Start 02/16/17 at 11:30 Glucagon (Glucagen) 1 mg Q15M PRN IM DECREASED GLUCOSE; Start 02/16/17 at 11:30 Glucose 15 gm 15 gm Q15M PRN BUCCAL DECREASED GLUCOSE; Start 02/16/17 at 11:30 Piperacillin Sod/ Tazobactam Sod 50 ml @ 100 mls/hr Q6 IVPB Last administered on 02/18/17 11:37; Admin Dose 100 MLS/HR; Start 02/16/17 at 18:00 Vasopressin 60 unit/Dextrose 60 ml @ 1.8 mls/hr Q12H IV ; Start 02/16/17 at 13: 00 Sodium Chloride (NS) 1,000 ml @ 50 mls/hr Q20H IV Last administered on 05:30; Admin Dose 75 MLS/HR; Start 02/17/17 at 12:00 Aspirin (Aspirin) 81 mg DAILY GTB Last administered on 02/18/17 08:41; Admin Dose 81 MG; Start 02/18/17 at 09:00 Atorvastatin Calcium (Lipitor) 20 mg HS NGT Last administered on 02/17/17 20: 34; Admin Dose 20 MG; Start 02/17/17 at 21:00 Casey Schuler DO Feb 18, 2017 16:20
[2017-02-18] MEDS: ATORVASTATIN 20 MG TAB NGT SCH (20:24)
[2017-02-19] VITALS (100 sets, daily range): BP systolic 76–115; BP diastolic 55–88; PULSE 67–103; RESP 21–30
[2017-02-19] MEDS: PIPER-TAZO 2.25 GM (PMX) 50 ML IVPB SCH ×5 (00:15→23:42)
[2017-02-19] MEDS: VASOPRESSIN 60 UNIT in DEXTROSE 5% 57 ML IV SCH ×2 (00:16→13:00)
[2017-02-19] MEDS: INSULIN ASPART [NOVOLOG] 3 ML PEN SC SCH ×6 (00:16→21:00)
[2017-02-19] MEDS: ARTIFICIAL TEARS 15 ML OPH BOTH EYES SCH ×5 (00:16→23:10)
[2017-02-19] MEDS: OCULAR LUBRICANT 3.5 GM OPH OINT BOTH EYES SCH ×5 (00:16→23:10)
[2017-02-19] MEDS: SOD CHLORIDE 0.9% 1,000 ML IV SCH (01:41)
[2017-02-19 05:25] LABS: ADD SCAN DIFF NO
[2017-02-19 05:32] LABS: ABNORMAL IP MESSAGE 1; BASOPHILS % 0.1 % (0.0-2.0); EOSINOPHILS % 0.2 % (0.0-7.0); HEMATOCRIT 23.4 % (42.0-52.0); HEMOGLOBIN 7.7 g/dl (14.0-18.0); LYMPHOCYTES # 1.4 10^3/ul (0.8-2.9); LYMPHOCYTES % 12.8 % (15.0-51.0); MEAN CORPUSCULAR HEMOGLOBIN 33.2 pg (29.0-33.0); MEAN CORPUSCULAR HGB CONC 32.9 g/dl (32.0-37.0); MEAN CORPUSCULAR VOLUME 100.9 fl (82.0-101.0); MEAN PLATELET VOLUME 12.4 fl (7.4-10.4); MONOCYTE # 0.6 10^3/ul (0.3-0.9); MONOCYTES % 5.1 % (0.0-11.0); NEUTROPHIL # 8.9 10^3/ul (1.6-7.5); NEUTROPHILS % 81.2 % (39.0-77.0); NUCLEATED RED BLOOD CELLS # 0.1 10^3/ul (0.0-0.0); NUCLEATED RED BLOOD CELLS% 0.5 /100WBC (0.0-0.0); PLATELET COUNT 56 10^3/UL (140-415); RED BLOOD COUNT 2.32 10^6/ul (4.70-6.10); RED CELL DISTRIBUTION WIDTH 15.3 % (11.5-14.5)
[2017-02-19] MEDS: PANTOPRAZOLE 40 MG INJ IV SCH (05:33)
[2017-02-19 05:47] LABS: IRON 17 ug/dl (35-150)
[2017-02-19 05:56] LABS: TOTAL IRON BINDING CAPACITY 156 ug/dl (241-421)
[2017-02-19 06:45] LABS: CALCIUM 7.6 mg/dl (8.4-10.2); CREATININE 1.91 mg/dl (0.61-1.24); PHOSPHORUS 1.8 mg/dl (2.5-4.9)
--- NOTE | 2017-02-19 08:24 | PN ---
Date/Time of Note Date/Time of Note DATE: 02/19/17 TIME: 08:23 Assessment/Plan VTE Prophylaxis VTE Prophylaxis Intervention: other Lines/Catheters IV Catheter Type (from Nrsg): Central Line Central line still needed: Yes Urinary Cath still in place: Yes Reason Cath still needed: other (indicate) Assessment/Plan Chief Complaint/Hosp Course 1. Nonoliguric acute kidney injury with previous baseline creatinine 0.8 mg/dL. -Etiology of CROW secondary to ATN due to ischemic hypoperfusion shock. -Urinalysis was reviewed evidence of proteinuria no evidence of active sediment -Renal function is stabilizing -Continue current treatment plan continue IV fluids, keep map greater than 65. -Continue supportive care, renally dose all meds, avoid nephrotoxic 2. Anemia. -Monitor H&H levels 3. Mineral bone disorder -Monitor calcium phosphorus levels -Replace phosphorus 4. Hypokalemia -Improved continue to monitor - 5. Respiratory alkalemia. -Continue to monitor 6. Cardiac arrest. Patient status post hypothermia protocol -Follow-up with cardiology 7. Ventilator dependent respiratory failure -Vent settings ABGs reviewed -Follow-up with pulmonary 8. Pneumothorax -Status post chest tube placement, continue to monitor 9. Sepsis with bacteremia -Continue antibiotic regimen -Cultures reviewed -Monitor closely 10. Mild hyponatremia Monitor Problems: Subjective 24 Hr Interval Summary Free Text/Dictation Patient remains critically ill on pressor support. Minimal neurologic response Exam/Review of Systems Vital Signs Vitals Vital Signs Date Time Temp Pulse Resp B/P Pulse Ox O2 Delivery O2 Flow Rate FiO2 02/19/17 06:15 82 26 91/70 100 02/19/17 06:00 Mechanical Ventilator 02/19/17 05:18 30 02/19/17 04:00 98.7 Intake and Output 02/18/17 02/18/17 02/19/17 15:00 23:00 07:00 Intake Total 1395.0 ml 997.5 ml 1025.0 ml Output Total 240 ml 432 ml 697 ml Balance 1155.0 ml 565.5 ml 328.0 ml Exam HEENT: Head is normocephalic. NECK: Supple. HEART: Irregular LUNGS: Show diminished breath sounds at base. ABDOMEN: Soft, nontender to palpation without rebound or guarding. EXTREMITIES: Negative for clubbing, cyanosis. Positive edema, DERMATOLOGIC: No rashes. MUSCULOSKELETAL: No joint effusions, positive wounds. NEUROLOGIC: No change in exam. Results Result Diagram: 02/19/17 0400 02/19/17 0400 Results 24 hrs Laboratory Tests Test 02/18/17 08:43 02/18/17 10:40 02/18/17 11:34 02/18/17 17:05 Bedside Glucose 91 90 94 Stool Occult Blood POSITIVE Test 02/18/17 20:20 02/19/17 00:15 02/19/17 04:00 02/19/17 05:32 Bedside Glucose 122 114 122 White Blood Count 11.0 H Red Blood Count 2.32 L Hemoglobin 7.7 L Hematocrit 23.4 L Mean Corpuscular Volume 100.9 Mean Corpuscular Hemoglobin 33.2 H Mean Corpuscular Hemoglobin Concent 32.9 Red Cell Distribution Width 15.3 H Platelet Count 56 L Mean Platelet Volume 12.4 H Neutrophils % 81.2 H Lymphocytes % 12.8 L Monocytes % 5.1 Eosinophils % 0.2 Basophils % 0.1 Nucleated Red Blood Cells % 0.5 H Neutrophils # 8.9 H Lymphocytes # 1.4 Monocytes # 0.6 Eosinophils # 0.0 Basophils # 0.0 Nucleated Red Blood Cells # 0.1 H Sodium Level 134 L Potassium Level 4.0 Chloride Level 107 Carbon Dioxide Level 27 Anion Gap 4 L Blood Urea Nitrogen 44 H Creatinine 1.91 H Glucose Level 145 Calcium Level 7.6 L Phosphorus Level 1.8 L Magnesium Level 2.0 Iron Level 17 L Total Iron Binding Capacity 156 L Percent Iron Saturation 11 L Ferritin 235.0 Medications Medications Current Medications Fentanyl (Sublimaze) 25 mcg Q10M PRN IV SEDATION; Start 02/14/17 at 12:30 Ondansetron HCl (Zofran Inj) 4 mg Q6H PRN IV NAUSEA AND/OR VOMITING; Start 02/14 at 16:00 Morphine Sulfate (morphine) 2 mg Q4H PRN IV SEVERE PAIN LEVEL 7-10 Last administered on 02/17/17 10:46; Admin Dose 2 MG; Start 02/14/17 at 16:00 Pantoprazole 40 mg 40 mg DAILY@06 IV Last administered on 02/19/17 05:33; Admin Dose 40 MG; Start 02/15/17 at 06:00 Amiodarone HCl/ Dextrose (Cordarone Iv/ D5W) 500 ml @ 0 mls/hr Q0M IV Last administered on 02/14/17 17:51; Admin Dose 33.3 MLS/HR; Start 02/14/17 at 17:00; Status Future Hold Acetaminophen (Tylenol Supp) 650 mg Q4H PRN [place] TEMP > 37C; Start 02/14/17 at 18: 00 Acetaminophen (Tylenol Liquid) 650 mg Q4H PRN PO TEMP > 37C; Start 02/14/17 at 18:00 Eye Lubricant (Akwa Oint) 1 applic Q6 BOTH EYES Last administered on 02/19/17 05:33; Admin Dose 1 APPLIC; Start 02/14/17 at 18:00 Eye Lubricant 2 drop 2 drop Q6 BOTH EYES Last administered on 02/19/17 05:33; Admin Dose 2 DROP; Start 02/14/17 at 18:00 Norepinephrine 16 mg/Dextrose 500 ml @ 0 mls/hr TITRATE IV Last administered on 02/18/17 08:44; Admin Dose 22.5 MLS/HR; Start 02/14/17 at 22:00 Azithromycin 500 mg/Sodium Chloride 250 ml @ 250 mls/hr DAILY IVPB Last administered on 02/18/17 08:44; Admin Dose 250 MLS/HR; Start 02/15/17 at 10:00 Phenylephrine HCl/ Dextrose (Fritz-Syneph/D5W) 500 ml @ 75 mls/hr TITRATE IV ; Start 02/16/17 at 03:30 Insulin Aspart (Novolog Insulin Pen) NOVOLOG *MILD* ALGORI... Q4 SC Last administered on 02/17/17 00:43; Admin Dose 1 UNIT; Start 02/16/17 at 13:00 Miscellaneous Information 1 ea NOTE XX ; Start 02/16/17 at 11:30 Glucose (Glutose) 15 gm Q15M PRN PO DECREASED GLUCOSE; Start 02/16/17 at 11:30 Glucose (Glutose) 22.5 gm Q15M PRN PO DECREASED GLUCOSE; Start 02/16/17 at 11:30 Dextrose (D50w Syringe) 25 ml Q15M PRN IV DECREASED GLUCOSE; Start 02/16/17 at 11:30 Dextrose (D50w Syringe) 50 ml Q15M PRN IV DECREASED GLUCOSE; Start 02/16/17 at 11:30 Glucagon (Glucagen) 1 mg Q15M PRN IM DECREASED GLUCOSE; Start 02/16/17 at 11:30 Glucose 15 gm 15 gm Q15M PRN BUCCAL DECREASED GLUCOSE; Start 02/16/17 at 11:30 Piperacillin Sod/ Tazobactam Sod 50 ml @ 100 mls/hr Q6 IVPB Last administered on 02/19/17 05:33; Admin Dose 100 MLS/HR; Start 02/16/17 at 18:00 Vasopressin 60 unit/Dextrose 60 ml @ 1.8 mls/hr Q12H IV ; Start 02/16/17 at 13: 00 Sodium Chloride (NS) 1,000 ml @ 50 mls/hr Q20H IV Last administered on 01:41; Admin Dose 50 MLS/HR; Start 02/17/17 at 12:00 Aspirin (Aspirin) 81 mg DAILY GTB Last administered on 02/18/17 08:41; Admin Dose 81 MG; Start 02/18/17 at 09:00 Atorvastatin Calcium (Lipitor) 20 mg HS NGT Last administered on 02/18/17 20: 24; Admin Dose 20 MG; Start 02/17/17 at 21:00 JENSEN OLIVIER DO Feb 19, 2017 08:24
--- NOTE | 2017-02-19 08:31 | RADRPT ---
PROCEDURE: Chest Radiograph. CLINICAL INDICATION: CHF. Pneumonia. TECHNIQUE: Single frontal chest radiograph. COMPARISON: Chest radiograph 02/18/2017 FINDINGS: An endotracheal tube is in place with distal tip approximately 2.5 cm above the agustín. A nasogastr ic tube is in place with distal tip was within the proximal stomach, the proximal side hole is withi n the distal esophagus.. The heart is magnified and appears mildly enlarged. A left chest tube elsa ins in place. There is no pneumothorax. There is likely a small right pleural effusion. There i s patchy infiltrates throughout the right lung, predominately in the right upper lobe. There is a q uestionable trace left pleural effusion. There is a mildly displaced left lateral fourth rib fractu re.. IMPRESSION: 1. Nasogastric tube with distal tip in the proximal stomach though the proximal side holes in the d istal esophagus. Recommend advancement by approximately 8 cm. 2. Small right and trace left pleural effusions. 3. Patchy infiltrates throughout the right lung are stable. 4. Mildly displaced left lateral fourth rib fracture. 5. Left chest tube in place without evidence of pneumothorax. RPTAT: KK .Edson Mcneill MD, Date Time Electronically viewed and signed by .Edson Mcneill MD, on 02/19/2017 08:31 .B/
[2017-02-19] MEDS: AZITHROMYCIN 500 MG in SOD CHLORIDE 0.9% 250 ML IVPB SCH (09:13)
[2017-02-19] MEDS: ASPIRIN 81 MG TAB GTB SCH (09:14)
[2017-02-19] MEDS ORDERED: POTASSIUM PHOSPHATE 20 MEQ in SOD CHLORIDE 0.9% 250 ML IVPB ONE (10:00)
--- NOTE | 2017-02-19 10:47 | PN ---
Date/Time of Note Date/Time of Note DATE: 02/19/17 TIME: 10:44 Assessment/Plan VTE Prophylaxis VTE Prophylaxis Intervention: SCD's Lines/Catheters IV Catheter Type (from Nrs): Central Line Central line still needed: Yes Urinary Cath still in place: Yes Reason Cath still needed: other (indicate) Assessment/Plan Chief Complaint/Hosp Course Chief Complaint/Hosp Course 1. Cardiac arrest secondary to V-fib status post ACLS with defibrillation and return of circulation Intubated and vent dependent at this time Status post hypothermia protocol Chest tube placed for pneumothorax caused by repeated chest compressions Cardiology consultation, patient does not meet criteria for emergent cardiac catheterization per manager wireless on-call Broad-spectrum antibiotics 2. Acute respiratory distress secondary to cardiac arrest Continue vent management Pulmonology consultation appreciated 3. 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 Pancytopenia possibly secondary to sepsis-WBC has increased Continue antibiotics HIV negative 6. Acute kidney disease secondary to cardiac arrest IV fluid Nephrology has been consulted, follow-up renal panel in a.m. 7. Hyperglycemia-possibly reactive A1c is within normal limits 8. Hyponatremia likely secondary to dehydration-resolved IV fluids with normal saline 9. Bacteremia secondary to gram-positive cocci Vancomycin IV 10. Acute on chronic anemia, follow up stool for guaiac Follow-up hemoglobin hematocrit in a.m. Will transfuse if hemoglobin is less than 7.5 Prophylaxis: SCDs Problems: Subjective 24 Hr Interval Summary Free Text/Dictation Patient is less responsive than yesterday Off Versed since this morning and does not respond to pain or verbal stimuli No family at the bedside Intubated Exam/Review of Systems Vital Signs Vitals Vital Signs Date Time Temp Pulse Resp B/P Pulse Ox O2 Delivery O2 Flow Rate FiO2 02/19/17 08:00 73 02/19/17 06:15 26 91/70 100 02/19/17 06:00 Mechanical Ventilator 02/19/17 05:18 30 02/19/17 04:00 98.7 Intake and Output 02/18/17 02/18/17 02/19/17 15:00 23:00 07:00 Intake Total 1395.0 ml 997.5 ml 1025.0 ml Output Total 240 ml 432 ml 697 ml Balance 1155.0 ml 565.5 ml 328.0 ml Exam General: The patient is intubated HEENT: Atraumatic, normocephalic. The pupils are equal Chest: Chest tube in the left axillary region Lungs: Decreased breath sounds bilateral lower lung field Heart: Normal S1-S2, RRR Abdomen: Soft , nontender, nondistended , bowel sounds are present. Extremities: Multiple bruising bilateral lower extremity, trace edema no cyanosis Neurologic: Patient does not respond to pain or verbal stimuli off sedation Results Result Diagram: 02/19/17 0400 02/19/17 0400 Results 24 hrs Laboratory Tests Test 02/18/17 11:34 02/18/17 17:05 02/18/17 20:20 02/19/17 00:15 Bedside Glucose 90 94 122 114 Test 02/19/17 04:00 02/19/17 05:32 02/19/17 09:21 White Blood Count 11.0 H Red Blood Count 2.32 L Hemoglobin 7.7 L Hematocrit 23.4 L Mean Corpuscular Volume 100.9 Mean Corpuscular Hemoglobin 33.2 H Mean Corpuscular Hemoglobin Concent 32.9 Red Cell Distribution Width 15.3 H Platelet Count 56 L Mean Platelet Volume 12.4 H Neutrophils % 81.2 H Lymphocytes % 12.8 L Monocytes % 5.1 Eosinophils % 0.2 Basophils % 0.1 Nucleated Red Blood Cells % 0.5 H Neutrophils # 8.9 H Lymphocytes # 1.4 Monocytes # 0.6 Eosinophils # 0.0 Basophils # 0.0 Nucleated Red Blood Cells # 0.1 H Sodium Level 134 L Potassium Level 4.0 Chloride Level 107 Carbon Dioxide Level 27 Anion Gap 4 L Blood Urea Nitrogen 44 H Creatinine 1.91 H Glucose Level 145 Calcium Level 7.6 L Phosphorus Level 1.8 L Magnesium Level 2.0 Iron Level 17 L Total Iron Binding Capacity 156 L Percent Iron Saturation 11 L Ferritin 235.0 Bedside Glucose 122 94 Medications Medications Current Medications Fentanyl (Sublimaze) 25 mcg Q10M PRN IV SEDATION; Start 02/14/17 at 12:30 Ondansetron HCl (Zofran Inj) 4 mg Q6H PRN IV NAUSEA AND/OR VOMITING; Start 02/14 at 16:00 Morphine Sulfate (morphine) 2 mg Q4H PRN IV SEVERE PAIN LEVEL 7-10 Last administered on 02/17/17t 10:46; Admin Dose 2 MG; Start 02/14/17 at 16:00 Pantoprazole 40 mg 40 mg DAILY@06 IV Last administered on 02/19/17 05:33; Admin Dose 40 MG; Start 02/15/17 at 06:00 Amiodarone HCl/ Dextrose (Cordarone Iv/ D5W) 500 ml @ 0 mls/hr Q0M IV Last administered on 02/14/17 17:51; Admin Dose 33.3 MLS/HR; Start 02/14/17 at 17:00; Status Future Hold Acetaminophen (Tylenol Supp) 650 mg Q4H PRN [place] TEMP > 37C; Start 02/14/17 at 18: 00 Acetaminophen (Tylenol Liquid) 650 mg Q4H PRN PO TEMP > 37C; Start 02/14/17 at 18:00 Eye Lubricant (Akwa Oint) 1 applic Q6 BOTH EYES Last administered on 02/19/17 05:33; Admin Dose 1 APPLIC; Start 02/14/17 at 18:00 Eye Lubricant 2 drop 2 drop Q6 BOTH EYES Last administered on 02/19/17 05:33; Admin Dose 2 DROP; Start 02/14/17 at 18:00 Norepinephrine 16 mg/Dextrose 500 ml @ 0 mls/hr TITRATE IV Last administered on 02/19/17 09:23; Admin Dose 15 MLS/HR; Start 02/14/17 at 22:00 Azithromycin 500 mg/Sodium Chloride 250 ml @ 250 mls/hr DAILY IVPB Last administered on 02/19/17 09:13; Admin Dose 250 MLS/HR; Start 02/15/17 at 10:00 Phenylephrine HCl/ Dextrose (Fritz-Syneph/D5W) 500 ml @ 75 mls/hr TITRATE IV ; Start 02/16/17 at 03:30 Insulin Aspart (Novolog Insulin Pen) NOVOLOG *MILD* ALGORI... Q4 SC Last administered on 02/17/17 00:43; Admin Dose 1 UNIT; Start 02/16/17 at 13:00 Miscellaneous Information 1 ea NOTE XX ; Start 02/16/17 at 11:30 Glucose (Glutose) 15 gm Q15M PRN PO DECREASED GLUCOSE; Start 02/16/17 at 11:30 Glucose (Glutose) 22.5 gm Q15M PRN PO DECREASED GLUCOSE; Start 02/16/17 at 11:30 Dextrose (D50w Syringe) 25 ml Q15M PRN IV DECREASED GLUCOSE; Start 02/16/17 at 11:30 Dextrose (D50w Syringe) 50 ml Q15M PRN IV DECREASED GLUCOSE; Start 02/16/17 at 11:30 Glucagon (Glucagen) 1 mg Q15M PRN IM DECREASED GLUCOSE; Start 02/16/17 at 11:30 Glucose 15 gm 15 gm Q15M PRN BUCCAL DECREASED GLUCOSE; Start 02/16/17 at 11:30 Piperacillin Sod/ Tazobactam Sod 50 ml @ 100 mls/hr Q6 IVPB Last administered on 02/19/17 05:33; Admin Dose 100 MLS/HR; Start 02/16/17 at 18:00 Vasopressin 60 unit/Dextrose 60 ml @ 1.8 mls/hr Q12H IV ; Start 02/16/17 at 13: 00 Sodium Chloride (NS) 1,000 ml @ 50 mls/hr Q20H IV Last administered on 01:41; Admin Dose 50 MLS/HR; Start 02/17/17 at 12:00 Aspirin (Aspirin) 81 mg DAILY GTB Last administered on 02/19/17 09:14; Admin Dose 81 MG; Start 02/18/17 at 09:00 Atorvastatin Calcium 20 mg 20 mg HS NGT Last administered on 02/18/17 20:24; Admin Dose 20 MG; Start 02/17/17 at 21:00 Potassium Phosphate/Sodium Chloride (K Phos (Meq)/NS) 254.5455 ml @ 63.636 m... ONCE ONCE IVPB ; Start 02/19/17 at 10:00; Stop 02/19/17 at 13:59 SEVERIANO LAUREANO MD Feb 19, 2017 10:47
--- NOTE | 2017-02-19 11:00 | CONS ---
Date/Time of Note Date/Time of Note DATE: 02/19/17 TIME: 10:59 Consult Date/Type/Reason Admit Date/Time Feb 14, 2017 at 16:02 Type of Consultation: Pulmonary Subjective Patient remains stable no new events somnolent this morning, sedation has been turned off, currently requiring Levophed at 3 mcg Objective Vital Signs Date Time Temp Pulse Resp B/P Pulse Ox O2 Delivery O2 Flow Rate FiO2 02/19/17 08:00 73 02/19/17 06:15 26 91/70 100 02/19/17 06:00 Mechanical Ventilator 02/19/17 05:18 30 02/19/17 04:00 98.7 Intake and Output 02/18/17 02/18/17 02/19/17 15:00 23:00 07:00 Intake Total 1395.0 ml 997.5 ml 1025.0 ml Output Total 240 ml 432 ml 697 ml Balance 1155.0 ml 565.5 ml 328.0 ml Exam PHYSICAL EXAMINATION GENERAL: Elderly gentleman, intubated on mechanical ventilation, opens eyes and appears somewhat agitated. Orally intubated. VITAL SIGNS: see below. HEENT: Pupils equal, round, and reactive to light. CARDIAC: S1, S2, 1/6 systolic ejection murmur CHEST: Diminished air entry bilaterally. ABDOMEN: Mildly distended. Bowel sounds present no guarding or rebound EXTREMITIES: No cyanosis, clubbing edema +1 NEUROLOGIC: Generalized weakness Results/Medications Result Diagram: 02/19/17 0400 02/19/17 0400 Results 24 hrs Laboratory Tests Test 02/18/17 11:34 02/18/17 17:05 02/18/17 20:20 02/19/17 00:15 Bedside Glucose 90 94 122 114 Test 02/19/17 04:00 02/19/17 05:32 02/19/17 09:21 White Blood Count 11.0 H Red Blood Count 2.32 L Hemoglobin 7.7 L Hematocrit 23.4 L Mean Corpuscular Volume 100.9 Mean Corpuscular Hemoglobin 33.2 H Mean Corpuscular Hemoglobin Concent 32.9 Red Cell Distribution Width 15.3 H Platelet Count 56 L Mean Platelet Volume 12.4 H Neutrophils % 81.2 H Lymphocytes % 12.8 L Monocytes % 5.1 Eosinophils % 0.2 Basophils % 0.1 Nucleated Red Blood Cells % 0.5 H Neutrophils # 8.9 H Lymphocytes # 1.4 Monocytes # 0.6 Eosinophils # 0.0 Basophils # 0.0 Nucleated Red Blood Cells # 0.1 H Sodium Level 134 L Potassium Level 4.0 Chloride Level 107 Carbon Dioxide Level 27 Anion Gap 4 L Blood Urea Nitrogen 44 H Creatinine 1.91 H Glucose Level 145 Calcium Level 7.6 L Phosphorus Level 1.8 L Magnesium Level 2.0 Iron Level 17 L Total Iron Binding Capacity 156 L Percent Iron Saturation 11 L Ferritin 235.0 Bedside Glucose 122 94 Medications Current Medications Fentanyl (Sublimaze) 25 mcg Q10M PRN IV SEDATION; Start 02/14/17 at 12:30 Ondansetron HCl (Zofran Inj) 4 mg Q6H PRN IV NAUSEA AND/OR VOMITING; Start 02/14 at 16:00 Morphine Sulfate (morphine) 2 mg Q4H PRN IV SEVERE PAIN LEVEL 7-10 Last administered on 02/17/17 10:46; Admin Dose 2 MG; Start 02/14/17 at 16:00 Pantoprazole 40 mg 40 mg DAILY@06 IV Last administered on 02/19/17 05:33; Admin Dose 40 MG; Start 02/15/17 at 06:00 Amiodarone HCl/ Dextrose (Cordarone Iv/ D5W) 500 ml @ 0 mls/hr Q0M IV Last administered on 02/14/17 17:51; Admin Dose 33.3 MLS/HR; Start 02/14/17 at 17:00; Status Future Hold Acetaminophen (Tylenol Supp) 650 mg Q4H PRN [place] TEMP > 37C; Start 02/14/17 at 18: 00 Acetaminophen (Tylenol Liquid) 650 mg Q4H PRN PO TEMP > 37C; Start 02/14/17 at 18:00 Eye Lubricant (Akwa Oint) 1 applic Q6 BOTH EYES Last administered on 02/19/17 05:33; Admin Dose 1 APPLIC; Start 02/14/17 at 18:00 Eye Lubricant 2 drop 2 drop Q6 BOTH EYES Last administered on 02/19/17 05:33; Admin Dose 2 DROP; Start 02/14/17 at 18:00 Norepinephrine 16 mg/Dextrose 500 ml @ 0 mls/hr TITRATE IV Last administered on 02/19/17 09:23; Admin Dose 15 MLS/HR; Start 02/14/17 at 22:00 Azithromycin 500 mg/Sodium Chloride 250 ml @ 250 mls/hr DAILY IVPB Last administered on 02/19/17 09:13; Admin Dose 250 MLS/HR; Start 02/15/17 at 10:00 Phenylephrine HCl/ Dextrose (Fritz-Syneph/D5W) 500 ml @ 75 mls/hr TITRATE IV ; Start 02/16/17 at 03:30 Insulin Aspart (Novolog Insulin Pen) NOVOLOG *MILD* ALGORI... Q4 SC Last administered on 02/17/17 00:43; Admin Dose 1 UNIT; Start 02/16/17 at 13:00 Miscellaneous Information 1 ea NOTE XX ; Start 02/16/17 at 11:30 Glucose (Glutose) 15 gm Q15M PRN PO DECREASED GLUCOSE; Start 02/16/17 at 11:30 Glucose (Glutose) 22.5 gm Q15M PRN PO DECREASED GLUCOSE; Start 02/16/17 at 11:30 Dextrose (D50w Syringe) 25 ml Q15M PRN IV DECREASED GLUCOSE; Start 02/16/17 at 11:30 Dextrose (D50w Syringe) 50 ml Q15M PRN IV DECREASED GLUCOSE; Start 02/16/17 at 11:30 Glucagon (Glucagen) 1 mg Q15M PRN IM DECREASED GLUCOSE; Start 02/16/17 at 11:30 Glucose 15 gm 15 gm Q15M PRN BUCCAL DECREASED GLUCOSE; Start 02/16/17 at 11:30 Piperacillin Sod/ Tazobactam Sod 50 ml @ 100 mls/hr Q6 IVPB Last administered on 02/19/17 05:33; Admin Dose 100 MLS/HR; Start 02/16/17 at 18:00 Vasopressin 60 unit/Dextrose 60 ml @ 1.8 mls/hr Q12H IV ; Start 02/16/17 at 13: 00 Sodium Chloride (NS) 1,000 ml @ 50 mls/hr Q20H IV Last administered on 01:41; Admin Dose 50 MLS/HR; Start 02/17/17 at 12:00 Aspirin (Aspirin) 81 mg DAILY GTB Last administered on 02/19/17 09:14; Admin Dose 81 MG; Start 02/18/17 at 09:00 Atorvastatin Calcium 20 mg 20 mg HS NGT Last administered on 02/18/17t 20:24; Admin Dose 20 MG; Start 02/17/17 at 21:00 Potassium Phosphate 20 meq/ Sodium Chloride 254.5455 ml @ 63.636 m... ONCE ONCE IVPB ; Start 02/19/17 at 10:00; Stop 02/19/17 at 13:59 Ferric Sodium Gluconate Complex/ Sodium Chloride (Ferrlecit/NS) 110 ml @ 110 mls/hr Q24H IVPB ; Start 02/19/17 at 11:00; Stop 02/23/17 at 11:59; Status UNV Assessment/Plan Chief Complaint/Hosp Course IMP: 1. Cardiopulmonary Arrest: query primary cardiac event leading to respiratory failure and multilobar aspiration pneumonia 2. Respiratory Failure/Vent 3. Multifocal pneumonia--likely aspiration 4. s/p VF 5. ARF 6. Barotrauma--s/p CPR 7. Hypoglycemia 8. Septic shock secondary to above 9. Encephalopathy toxic metabolic slowly improving RECS: 1. Vent support, CPAP trial once more alert 2. Continue IV fluids tube feeding 3. Start tube feeding if patient not able to tolerate weaning 4. Levophed to MAP > 65 mm Hg; 5. Follow-up Cxs 6. Monitor neurological status 7. Antibiotics per primary team Discussed with staff at bedside 40 min cc time Problems: CAS LIMA [facility] Feb 19, 2017 11:00
--- NOTE | 2017-02-19 11:24 | CONS ---
Date/Time of Note Date/Time of Note DATE: 02/19/17 TIME: 11:23 Assessment/Plan Assessment/Plan Additional Assessment/Plan Cardiopulmonary arrest Septic shock Vent dependent respiratory failure Cardiomyopathy with ejection fraction 20% Non-ST elevation AK Acute kidney injury -Patient status post hypothermia protocol. Continue aspirin and statin therapy , no beta-naida given hypotension as well as BERTHA inhibitor given acute kidney injury. Consultation Date/Type/Reason Admit Date/Time Feb 14, 2017 at 16:02 Type of Consultation: cv 24 HR Interval Summary Free Text/Dictation Patient seen and examined Exam/Review of Systems Vital Signs Vitals Vital Signs Date Time Temp Pulse Resp B/P Pulse Ox O2 Delivery O2 Flow Rate FiO2 02/19/17 08:00 73 02/19/17 06:15 26 91/70 100 02/19/17 06:00 Mechanical Ventilator 02/19/17 05:18 30 02/19/17 04:00 98.7 Intake and Output 02/18/17 02/18/17 02/19/17 15:00 23:00 07:00 Intake Total 1395.0 ml 997.5 ml 1025.0 ml Output Total 240 ml 432 ml 697 ml Balance 1155.0 ml 565.5 ml 328.0 ml Exam Sedated and intubated, no apparent distress Head: normocephalic ENMT: intubated Respiratory: other (Coarse breath sounds bilaterally, no wheezing) Cardiovascular: other (S1-S2 heard), regular rate and rhythm Gastrointestinal: bowel sounds, non-tender, soft Extremities: other (No edema) Results Result Diagram: 02/19/17 0400 02/19/17 0400 Results 24 hrs Laboratory Tests Test 02/18/17 11:34 02/18/17 17:05 02/18/17 20:20 02/19/17 00:15 Bedside Glucose 90 94 122 114 Test 02/19/17 04:00 02/19/17 05:32 02/19/17 09:21 White Blood Count 11.0 H Red Blood Count 2.32 L Hemoglobin 7.7 L Hematocrit 23.4 L Mean Corpuscular Volume 100.9 Mean Corpuscular Hemoglobin 33.2 H Mean Corpuscular Hemoglobin Concent 32.9 Red Cell Distribution Width 15.3 H Platelet Count 56 L Mean Platelet Volume 12.4 H Neutrophils % 81.2 H Lymphocytes % 12.8 L Monocytes % 5.1 Eosinophils % 0.2 Basophils % 0.1 Nucleated Red Blood Cells % 0.5 H Neutrophils # 8.9 H Lymphocytes # 1.4 Monocytes # 0.6 Eosinophils # 0.0 Basophils # 0.0 Nucleated Red Blood Cells # 0.1 H Sodium Level 134 L Potassium Level 4.0 Chloride Level 107 Carbon Dioxide Level 27 Anion Gap 4 L Blood Urea Nitrogen 44 H Creatinine 1.91 H Glucose Level 145 Calcium Level 7.6 L Phosphorus Level 1.8 L Magnesium Level 2.0 Iron Level 17 L Total Iron Binding Capacity 156 L Percent Iron Saturation 11 L Ferritin 235.0 Bedside Glucose 122 94 Medications Medications Current Medications Fentanyl (Sublimaze) 25 mcg Q10M PRN IV SEDATION; Start 02/14/17 at 12:30 Ondansetron HCl (Zofran Inj) 4 mg Q6H PRN IV NAUSEA AND/OR VOMITING; Start 02/14 at 16:00 Morphine Sulfate (morphine) 2 mg Q4H PRN IV SEVERE PAIN LEVEL 7-10 Last administered on 02/17/17 10:46; Admin Dose 2 MG; Start 02/14/17 at 16:00 Pantoprazole 40 mg 40 mg DAILY@06 IV Last administered on 02/19/17 05:33; Admin Dose 40 MG; Start 02/15/17 at 06:00 Amiodarone HCl/ Dextrose (Cordarone Iv/ D5W) 500 ml @ 0 mls/hr Q0M IV Last administered on 02/14/17 17:51; Admin Dose 33.3 MLS/HR; Start 02/14/17 at 17:00; Status Future Hold Acetaminophen (Tylenol Supp) 650 mg Q4H PRN [place] TEMP > 37C; Start 02/14/17 at 18: 00 Acetaminophen (Tylenol Liquid) 650 mg Q4H PRN PO TEMP > 37C; Start 02/14/17 at 18:00 Eye Lubricant (Akwa Oint) 1 applic Q6 BOTH EYES Last administered on 02/19/17 05:33; Admin Dose 1 APPLIC; Start 02/14/17 at 18:00 Eye Lubricant 2 drop 2 drop Q6 BOTH EYES Last administered on 02/19/17 05:33; Admin Dose 2 DROP; Start 02/14/17 at 18:00 Norepinephrine 16 mg/Dextrose 500 ml @ 0 mls/hr TITRATE IV Last administered on 02/19/17 09:23; Admin Dose 15 MLS/HR; Start 02/14/17 at 22:00 Azithromycin 500 mg/Sodium Chloride 250 ml @ 250 mls/hr DAILY IVPB Last administered on 02/19/17 09:13; Admin Dose 250 MLS/HR; Start 02/15/17 at 10:00 Phenylephrine HCl/ Dextrose (Fritz-Syneph/D5W) 500 ml @ 75 mls/hr TITRATE IV ; Start 02/16/17 at 03:30 Insulin Aspart (Novolog Insulin Pen) NOVOLOG *MILD* ALGORI... Q4 SC Last administered on 02/17/17 00:43; Admin Dose 1 UNIT; Start 02/16/17 at 13:00 Miscellaneous Information 1 ea NOTE XX ; Start 02/16/17 at 11:30 Glucose (Glutose) 15 gm Q15M PRN PO DECREASED GLUCOSE; Start 02/16/17 at 11:30 Glucose (Glutose) 22.5 gm Q15M PRN PO DECREASED GLUCOSE; Start 02/16/17 at 11:30 Dextrose (D50w Syringe) 25 ml Q15M PRN IV DECREASED GLUCOSE; Start 02/16/17 at 11:30 Dextrose (D50w Syringe) 50 ml Q15M PRN IV DECREASED GLUCOSE; Start 02/16/17 at 11:30 Glucagon (Glucagen) 1 mg Q15M PRN IM DECREASED GLUCOSE; Start 02/16/17 at 11:30 Glucose 15 gm 15 gm Q15M PRN BUCCAL DECREASED GLUCOSE; Start 02/16/17 at 11:30 Piperacillin Sod/ Tazobactam Sod 50 ml @ 100 mls/hr Q6 IVPB Last administered on 02/19/17 05:33; Admin Dose 100 MLS/HR; Start 02/16/17 at 18:00 Vasopressin 60 unit/Dextrose 60 ml @ 1.8 mls/hr Q12H IV ; Start 02/16/17 at 13: 00 Sodium Chloride (NS) 1,000 ml @ 50 mls/hr Q20H IV Last administered on 01:41; Admin Dose 50 MLS/HR; Start 02/17/17 at 12:00 Aspirin (Aspirin) 81 mg DAILY GTB Last administered on 02/19/17 09:14; Admin Dose 81 MG; Start 02/18/17 at 09:00 Atorvastatin Calcium 20 mg 20 mg HS NGT Last administered on 02/18/17 20:24; Admin Dose 20 MG; Start 02/17/17 at 21:00 Potassium Phosphate 20 meq/ Sodium Chloride 254.5455 ml @ 63.636 m... ONCE ONCE IVPB Last administered on 02/19/17 11:07; Admin Dose 63.636 MLS/HR; Start 02/19/17 at 10:00; Stop 02/19/17 at 13:59 Ferric Sodium Gluconate Complex/ Sodium Chloride (Ferrlecit/NS) 110 ml @ 110 mls/hr Q24H IVPB ; Start 02/19/17 at 12:30; Stop 02/23/17 at 13:29 Casey Schuler DO Feb 19, 2017 11:24
[2017-02-19 13:59] LABS: MICROALBUMIN 10.2 mg/dL
[2017-02-19] MEDS: SOD FERRIC GLUC COMPLX 125 MG in SOD CHLORIDE 0.9% 100 ML IVPB SCH (14:29)
[2017-02-19] MEDS: ATORVASTATIN 20 MG TAB NGT SCH (21:23)
--- NOTE | 2017-02-19 22:12 | RADRPT ---
PROCEDURE: XR Chest. CLINICAL INDICATION: Shortness of breath. TECHNIQUE: AP Portable chest. COMPARISON: Examination performed earlier the same day. FINDINGS: There is moderate cardiomegaly. There is moderate pulmonary vascular congestion with hazy opacity i n the right greater than left lung bases as well as some patchy opacity throughout the right chest, slightly increased compared to the prior. The osseous structures are unremarkable. An endotracheal tube tip is in the mid trachea. A nasogastric tube tip is in the stomach. A left c hest tube is unchanged in position. No definite pneumothorax is identified. IMPRESSION: Moderate pulmonary vascular congestion and edema along with hazy opacities in the right greater than left lung base likely due to effusions and atelectasis. RPTAT: HIKT .Manny Wiseman MD, Date Time Electronically viewed and signed by .Manny Wiseman MD, on 02/19/2017 22:12 .T/
[2017-02-19] MEDS: ACETAMINOPHEN 650MG/20.3ML CUP PO PRN (23:10)
[2017-02-20] VITALS (107 sets, daily range): BP systolic 77–128; BP diastolic 61–90; PULSE 60–96; RESP 19–35
[2017-02-20] MEDS: VASOPRESSIN 60 UNIT in DEXTROSE 5% 57 ML IV SCH ×2 (00:45→13:00)
[2017-02-20] MEDS: SOD CHLORIDE 0.9% 1,000 ML IV SCH (03:27)
[2017-02-20 05:21] LABS: ADD SCAN DIFF NO
[2017-02-20 05:36] LABS: ABNORMAL IP MESSAGE 1; EOSINOPHILS # 0.1 10^3/ul (0.0-0.5); EOSINOPHILS % 1.5 % (0.0-7.0); HEMATOCRIT 22.4 % (42.0-52.0); HEMOGLOBIN 7.4 g/dl (14.0-18.0); LYMPHOCYTES # 1.5 10^3/ul (0.8-2.9); LYMPHOCYTES % 18.8 % (15.0-51.0); MEAN CORPUSCULAR HEMOGLOBIN 33.8 pg (29.0-33.0); MEAN CORPUSCULAR VOLUME 102.3 fl (82.0-101.0); MEAN PLATELET VOLUME 12.2 fl (7.4-10.4); MONOCYTE # 0.8 10^3/ul (0.3-0.9); NEUTROPHIL # 5.6 10^3/ul (1.6-7.5); NUCLEATED RED BLOOD CELLS # 0.1 10^3/ul (0.0-0.0); NUCLEATED RED BLOOD CELLS% 0.9 /100WBC (0.0-0.0); RED BLOOD COUNT 2.19 10^6/ul (4.70-6.10); RED CELL DISTRIBUTION WIDTH 15.2 % (11.5-14.5); WHITE BLOOD COUNT 8.2 10^3/ul (4.8-10.8)
[2017-02-20] MEDS: INSULIN ASPART [NOVOLOG] 3 ML PEN SC SCH ×5 (06:00→23:43)
[2017-02-20 06:03] LABS: PLATELET COUNT 71 10^3/UL (140-415)
[2017-02-20 06:06] LABS: CALCIUM 7.7 mg/dl (8.4-10.2); CREATININE 1.83 mg/dl (0.61-1.24); PHOSPHORUS 2.6 mg/dl (2.5-4.9); POTASSIUM 3.6 mmol/L (3.5-5.1)
[2017-02-20] MEDS: ARTIFICIAL TEARS 15 ML OPH BOTH EYES SCH ×4 (06:23→23:42)
[2017-02-20] MEDS: OCULAR LUBRICANT 3.5 GM OPH OINT BOTH EYES SCH ×4 (06:23→23:42)
[2017-02-20] MEDS: PIPER-TAZO 2.25 GM (PMX) 50 ML IVPB SCH ×4 (06:23→23:42)
[2017-02-20] MEDS: PANTOPRAZOLE 40 MG INJ IV SCH (06:23)
--- NOTE | 2017-02-20 08:01 | PN ---
Date/Time of Note Date/Time of Note DATE: 02/20/17 TIME: 07:58 Assessment/Plan VTE Prophylaxis VTE Prophylaxis Intervention: other Lines/Catheters IV Catheter Type (from Nrsg): Central Line Central line still needed: Yes Urinary Cath still in place: Yes Reason Cath still needed: other (indicate) Assessment/Plan Chief Complaint/Hosp Course 1. Nonoliguric acute kidney injury with previous baseline creatinine 0.8 mg/dL. -Etiology of CROW secondary to ATN due to ischemic hypoperfusion shock. -Urinalysis was reviewed evidence of proteinuria no evidence of active sediment -Renal function is fluctuating but overall stable -Continue current treatment plan, keep map greater than 65, continue gentle hydration -Continue supportive care, renally dose all meds, avoid nephrotoxic 2. Anemia. -Monitor H&H levels 3. Mineral bone disorder -Monitor calcium phosphorus levels -Replace phosphorus 4. Hypokalemia -Improved. continue to monitor - 5. Volume overload -Patient's chest x-ray shows pulmonary congestion. -Patient is positive total fluids. -We will continue to defer diuretic therapy in the setting of shock. 6. Cardiac arrest. Patient status post hypothermia protocol -Follow-up with cardiology 7. Ventilator dependent respiratory failure -Vent settings ABGs reviewed -Follow-up with pulmonary 8. Pneumothorax -Status post chest tube placement, continue to monitor 9. Septic shock -Cultures positive for bacteremia -Continue antibiotic regimen, wean off pressors if possible -Follow-up with ID -Monitor closely 10. Mild hyponatremia Monitor Problems: Subjective 24 Hr Interval Summary Free Text/Dictation Patient remains critically ill on pressor support. Minimal neurologic response. No other events noted overnight Exam/Review of Systems Vital Signs Vitals Vital Signs Date Time Temp Pulse Resp B/P Pulse Ox O2 Delivery O2 Flow Rate FiO2 02/20/17 06:45 81 27 117/83 99 02/20/17 06:00 Mechanical Ventilator 02/20/17 05:05 30 02/20/17 04:00 98.6 Intake and Output 02/19/17 02/19/17 02/20/17 15:00 23:00 07:00 Intake Total 588.50 ml 1284.5455 ml 977.50 ml Output Total 612 ml 539 ml 482 ml Balance -23.50 ml 745.5455 ml 495.50 ml Exam HEENT: Head is normocephalic. NECK: Supple. HEART: Irregular LUNGS: Show diminished breath sounds at base. ABDOMEN: Soft, nontender to palpation without rebound or guarding. EXTREMITIES: Negative for clubbing, cyanosis. DERMATOLOGIC: No rashes. MUSCULOSKELETAL: No joint effusions, NEUROLOGIC: No change in exam. Results Result Diagram: 02/20/17 0350 02/20/17 0350 Results 24 hrs Laboratory Tests Test 02/19/17 09:21 02/19/17 12:40 02/19/17 17:20 02/19/17 21:12 Bedside Glucose 94 87 106 108 Test 02/19/17 23:47 02/20/17 03:50 02/20/17 06:25 Bedside Glucose 101 131 White Blood Count 8.2 # Red Blood Count 2.19 L Hemoglobin 7.4 L Hematocrit 22.4 L Mean Corpuscular Volume 102.3 H Mean Corpuscular Hemoglobin 33.8 H Mean Corpuscular Hemoglobin Concent 33.0 Red Cell Distribution Width 15.2 H Platelet Count 71 #L Mean Platelet Volume 12.2 H Neutrophils % 69.0 Lymphocytes % 18.8 Monocytes % 10.0 Eosinophils % 1.5 Basophils % 0.0 Nucleated Red Blood Cells % 0.9 H Neutrophils # 5.6 Lymphocytes # 1.5 Monocytes # 0.8 Eosinophils # 0.1 Basophils # 0.0 Nucleated Red Blood Cells # 0.1 H Sodium Level 134 L Potassium Level 3.6 Chloride Level Pending Carbon Dioxide Level 28 Anion Gap Pending Blood Urea Nitrogen 41 H Creatinine 1.83 H Glucose Level 121 Calcium Level 7.7 L Phosphorus Level 2.6 Magnesium Level 2.0 Random Vancomycin Level 9.9 Medications Medications Current Medications Fentanyl (Sublimaze) 25 mcg Q10M PRN IV SEDATION; Start 02/14/17 at 12:30 Ondansetron HCl (Zofran Inj) 4 mg Q6H PRN IV NAUSEA AND/OR VOMITING; Start 02/14 at 16:00 Morphine Sulfate (morphine) 2 mg Q4H PRN IV SEVERE PAIN LEVEL 7-10 Last administered on 02/17/17 10:46; Admin Dose 2 MG; Start 02/14/17 at 16:00 Pantoprazole 40 mg 40 mg DAILY@06 IV Last administered on 02/20/17 06:23; Admin Dose 40 MG; Start 02/15/17 at 06:00 Amiodarone HCl/ Dextrose (Cordarone Iv/ D5W) 500 ml @ 0 mls/hr Q0M IV Last administered on 02/14/17 17:51; Admin Dose 33.3 MLS/HR; Start 02/14/17 at 17:00; Status Future Hold Acetaminophen (Tylenol Supp) 650 mg Q4H PRN [place] TEMP > 37C; Start 02/14/17 at 18: 00 Acetaminophen (Tylenol Liquid) 650 mg Q4H PRN PO TEMP > 37C Last administered on 02/19/17 23:10; Admin Dose 650 MG; Start 02/14/17 at 18:00 Eye Lubricant (Akwa Oint) 1 applic Q6 BOTH EYES Last administered on 02/20/17 06:23; Admin Dose 1 APPLIC; Start 02/14/17 at 18:00 Eye Lubricant 2 drop 2 drop Q6 BOTH EYES Last administered on 02/20/17 06:23; Admin Dose 2 DROP; Start 02/14/17 at 18:00 Norepinephrine 16 mg/Dextrose 500 ml @ 0 mls/hr TITRATE IV Last administered on 02/19/17 09:23; Admin Dose 15 MLS/HR; Start 02/14/17 at 22:00 Azithromycin 500 mg/Sodium Chloride 250 ml @ 250 mls/hr DAILY IVPB Last administered on 02/19/17 09:13; Admin Dose 250 MLS/HR; Start 02/15/17 at 10:00 Phenylephrine HCl/ Dextrose (Fritz-Syneph/D5W) 500 ml @ 75 mls/hr TITRATE IV ; Start 02/16/17 at 03:30 Miscellaneous Information 1 ea NOTE XX ; Start 02/16/17 at 11:30 Glucose (Glutose) 15 gm Q15M PRN PO DECREASED GLUCOSE; Start 02/16/17 at 11:30 Glucose (Glutose) 22.5 gm Q15M PRN PO DECREASED GLUCOSE; Start 02/16/17 at 11:30 Dextrose (D50w Syringe) 25 ml Q15M PRN IV DECREASED GLUCOSE; Start 02/16/17 at 11:30 Dextrose (D50w Syringe) 50 ml Q15M PRN IV DECREASED GLUCOSE; Start 02/16/17 at 11:30 Glucagon (Glucagen) 1 mg Q15M PRN IM DECREASED GLUCOSE; Start 02/16/17 at 11:30 Glucose 15 gm 15 gm Q15M PRN BUCCAL DECREASED GLUCOSE; Start 02/16/17 at 11:30 Piperacillin Sod/ Tazobactam Sod 50 ml @ 100 mls/hr Q6 IVPB Last administered on 02/20/17 06:23; Admin Dose 100 MLS/HR; Start 02/16/17 at 18:00 Vasopressin 60 unit/Dextrose 60 ml @ 1.8 mls/hr Q12H IV ; Start 02/16/17 at 13: 00 Sodium Chloride (NS) 1,000 ml @ 50 mls/hr Q20H IV Last administered on 03:27; Admin Dose 50 MLS/HR; Start 02/17/17 at 12:00 Aspirin (Aspirin) 81 mg DAILY GTB Last administered on 02/19/17 09:14; Admin Dose 81 MG; Start 02/18/17 at 09:00 Atorvastatin Calcium 20 mg 20 mg HS NGT Last administered on 02/19/17 21:23; Admin Dose 20 MG; Start 02/17/17 at 21:00 Ferric Sodium Gluconate Complex/ Sodium Chloride (Ferrlecit/NS) 110 ml @ 110 mls/hr Q24H IVPB Last administered on 02/19/17 14:29; Admin Dose 110 MLS/HR; Start 02/19/17 at 12:30; Stop 02/23/17 at 13:29 Insulin Aspart (Novolog Insulin Pen) NOVOLOG *MILD* ALGORI... Q6 SC ; Start at 00:00 JENSEN OLIVIER DO Feb 20, 2017 08:01
[2017-02-20] MEDS: ASPIRIN 81 MG TAB GTB SCH (08:28)
[2017-02-20] MEDS: morphine 2 MG INJ IV PRN ×3 (08:30→18:28)
[2017-02-20] MEDS: AZITHROMYCIN 500 MG in SOD CHLORIDE 0.9% 250 ML IVPB SCH (08:30)
--- NOTE | 2017-02-20 10:03 | PN ---
Date/Time of Note Date/Time of Note DATE: 02/20/17 TIME: 09:46 Assessment/Plan VTE Prophylaxis VTE Prophylaxis Intervention: SCD's Lines/Catheters IV [facility]ter Type (from [facility] Central Line Central line still needed: Yes Urinary Cath still in place: Yes Reason Cath still needed: other (indicate) Assessment/Plan Chief Complaint/Hosp Course Chief Complaint/Hosp Course 1. Cardiac arrest secondary to V-fib status post ACLS with defibrillation and return of circulation Intubated and vent dependent at this time Status post hypothermia protocol Chest tube placed for pneumothorax caused by repeated chest compressions Cardiology consultation, patient does not meet criteria for emergent cardiac catheterization per cost estimating engineer on-call Broad-spectrum antibiotics 2. Acute respiratory distress secondary to cardiac arrest Continue vent management Pulmonology consultation appreciated 3. Pneumothorax secondary to repeated chest compressions status post chest tube placement 4. Homelessness call worker consultation 5. Pancytopenia possibly secondary to sepsis-WBC has increased Continue antibiotics HIV negative 6. Acute kidney disease secondary to cardiac arrest Continue gentle IV fluid, improving Nephrology has been consulted, follow-up renal panel in a.m. 7. Hyperglycemia-possibly reactive A1c is within normal limits 8. Hyponatremia likely secondary to dehydration-resolved IV fluids with normal saline 9. Bacteremia secondary to gram-positive cocci Vancomycin IV 10. Acute on chronic anemia, follow up stool for guaiac Follow-up hemoglobin hematocrit in a.m. Will transfuse if hemoglobin is less than 7.5 Prophylaxis: SCDs Note: Patient does not have any family member nor friend that could make make medical decisions for him. At this time patient status is critical and he may need several procedures such as PICC line placement and blood transfusion. Patient has been on pressors and sedation and IV fluids and IV antibiotics. Due to this fact patient will need to have a PICC line place. Also he is found to be anemic and he may need blood transfusion if his hemoglobin is less than 7.5. Due to lack of family member at this time will need to proceed with necessary medical management such as blood transfusion PICC line placement Problems: Subjective 24 Hr Interval Summary Free Text/Dictation Patient remains intubated Continues to be on pressors via levophed at 8 rey NG tube in place with a rate of 50 cc tube feeding Vent setting 500 with FiO2 30% PEEP of 5 Exam/Review of Systems Vital Signs Vitals Vital Signs Date Time Temp Pulse Resp B/P Pulse Ox O2 Delivery O2 Flow Rate FiO2 02/20/17 08:30 84 31 116/74 97 Mechanical Ventilator 02/20/17 07:15 99.4 02/20/17 05:05 30 Intake and Output 02/19/17 02/19/17 02/20/17 15:00 23:00 07:00 Intake Total 588.50 ml 1284.5455 ml 977.50 ml Output Total 612 ml 539 ml 482 ml Balance -23.50 ml 745.5455 ml 495.50 ml Exam General: The patient is intubated, responds to pain stimuli, open his eyes with verbal stimuli HEENT: Atraumatic, normocephalic. The pupils are equal Neck: Supple Chest: Chest tube in left axillary region Lungs: Decreased breath sounds bilateral lower lung field Heart: Normal S1-S2, Regular rhythm and rate. Abdomen: Soft , nontender, nondistended , bowel sounds are present. Extremities: Normal to inspection, trace edema no cyanosis Neurologic: Patient responds minimally to verbal stimuli and opens his eyes, and responds to sternal rub Results Result Diagram: 02/20/17 0350 02/20/17 0350 Results 24 hrs Laboratory Tests Test 02/19/17 12:40 02/19/17 17:20 02/19/17 21:12 02/19/17 23:47 Bedside Glucose 87 106 108 101 Test 02/20/17 03:50 02/20/17 06:25 White Blood Count 8.2 # Red Blood Count 2.19 L Hemoglobin 7.4 L Hematocrit 22.4 L Mean Corpuscular Volume 102.3 H Mean Corpuscular Hemoglobin 33.8 H Mean Corpuscular Hemoglobin Concent 33.0 Red Cell Distribution Width 15.2 H Platelet Count 71 #L Mean Platelet Volume 12.2 H Neutrophils % 69.0 Lymphocytes % 18.8 Monocytes % 10.0 Eosinophils % 1.5 Basophils % 0.0 Nucleated Red Blood Cells % 0.9 H Neutrophils # 5.6 Lymphocytes # 1.5 Monocytes # 0.8 Eosinophils # 0.1 Basophils # 0.0 Nucleated Red Blood Cells # 0.1 H Sodium Level 134 L Potassium Level 3.6 Chloride Level Pending Carbon Dioxide Level 28 Anion Gap Pending Blood Urea Nitrogen 41 H Creatinine 1.83 H Glucose Level 121 Calcium Level 7.7 L Phosphorus Level 2.6 Magnesium Level 2.0 Random Vancomycin Level 9.9 Bedside Glucose 131 Medications Medications Current Medications Fentanyl (Sublimaze) 25 mcg Q10M PRN IV SEDATION; Start 02/14/17 at 12:30 Ondansetron HCl (Zofran Inj) 4 mg Q6H PRN IV NAUSEA AND/OR VOMITING; Start 02/14 at 16:00 Morphine Sulfate (morphine) 2 mg Q4H PRN IV SEVERE PAIN LEVEL 7-10 Last administered on 02/20/17 08:30; Admin Dose 2 MG; Start 02/14/17 at 16:00 Pantoprazole 40 mg 40 mg DAILY@06 IV Last administered on 02/20/17 06:23; Admin Dose 40 MG; Start 02/15/17 at 06:00 Amiodarone HCl/ Dextrose (Cordarone Iv/ D5W) 500 ml @ 0 mls/hr Q0M IV Last administered on 02/14/17 17:51; Admin Dose 33.3 MLS/HR; Start 02/14/17 at 17:00; Status Future Hold Acetaminophen (Tylenol Supp) 650 mg Q4H PRN [place] TEMP > 37C; Start 02/14/17 at 18: 00 Acetaminophen (Tylenol Liquid) 650 mg Q4H PRN PO TEMP > 37C Last administered on 02/19/17 23:10; Admin Dose 650 MG; Start 02/14/17 at 18:00 Eye Lubricant (Akwa Oint) 1 applic Q6 BOTH EYES Last administered on 02/20/17 06:23; Admin Dose 1 APPLIC; Start 02/14/17 at 18:00 Eye Lubricant 2 drop 2 drop Q6 BOTH EYES Last administered on 02/20/17 06:23; Admin Dose 2 DROP; Start 02/14/17 at 18:00 Norepinephrine 16 mg/Dextrose 500 ml @ 0 mls/hr TITRATE IV Last administered on 02/19/17 09:23; Admin Dose 15 MLS/HR; Start 02/14/17 at 22:00 Azithromycin 500 mg/Sodium Chloride 250 ml @ 250 mls/hr DAILY IVPB Last administered on 02/20/17 08:30; Admin Dose 250 MLS/HR; Start 02/15/17 at 10:00 Phenylephrine HCl/ Dextrose (Fritz-Syneph/D5W) 500 ml @ 75 mls/hr TITRATE IV ; Start 02/16/17 at 03:30 Miscellaneous Information 1 ea NOTE XX ; Start 02/16/17 at 11:30 Glucose (Glutose) 15 gm Q15M PRN PO DECREASED GLUCOSE; Start 02/16/17 at 11:30 Glucose (Glutose) 22.5 gm Q15M PRN PO DECREASED GLUCOSE; Start 02/16/17 at 11:30 Dextrose (D50w Syringe) 25 ml Q15M PRN IV DECREASED GLUCOSE; Start 02/16/17 at 11:30 Dextrose (D50w Syringe) 50 ml Q15M PRN IV DECREASED GLUCOSE; Start 02/16/17 at 11:30 Glucagon (Glucagen) 1 mg Q15M PRN IM DECREASED GLUCOSE; Start 02/16/17 at 11:30 Glucose 15 gm 15 gm Q15M PRN BUCCAL DECREASED GLUCOSE; Start 02/16/17 at 11:30 Piperacillin Sod/ Tazobactam Sod 50 ml @ 100 mls/hr Q6 IVPB Last administered on 02/20/17 06:23; Admin Dose 100 MLS/HR; Start 02/16/17 at 18:00 Vasopressin 60 unit/Dextrose 60 ml @ 1.8 mls/hr Q12H IV ; Start 02/16/17 at 13: 00 Sodium Chloride (NS) 1,000 ml @ 50 mls/hr Q20H IV Last administered on 03:27; Admin Dose 50 MLS/HR; Start 02/17/17 at 12:00 Aspirin (Aspirin) 81 mg DAILY GTB Last administered on 02/19/17 09:14; Admin Dose 81 MG; Start 02/18/17 at 09:00 Atorvastatin Calcium 20 mg 20 mg HS NGT Last administered on 02/19/17 21:23; Admin Dose 20 MG; Start 02/17/17 at 21:00 Ferric Sodium Gluconate Complex/ Sodium Chloride (Ferrlecit/NS) 110 ml @ 110 mls/hr Q24H IVPB Last administered on 02/19/17 14:29; Admin Dose 110 MLS/HR; Start 02/19/17 at 12:30; Stop 02/23/17 at 13:29 Insulin Aspart (Novolog Insulin Pen) NOVOLOG *MILD* ALGORI... Q6 SC ; Start at 00:00 SEVERIANO LAUREANO MD Feb 20, 2017 10:02
--- NOTE | 2017-02-20 10:55 | CONS ---
Date/Time of Note Date/Time of Note DATE: 02/20/17 TIME: 10:53 Consult Date/Type/Reason Admit Date/Time Feb 14, 2017 at 16:02 Type of Consultation: Pulmonary ICU Subjective Remains somnolent despite being off sedation Continues mechanical ventilation Moderate secretions Objective Vital Signs Date Time Temp Pulse Resp B/P Pulse Ox O2 Delivery O2 Flow Rate FiO2 02/20/17 08:30 84 31 116/74 97 Mechanical Ventilator 02/20/17 07:15 99.4 02/20/17 05:05 30 Intake and Output 02/19/17 02/19/17 02/20/17 15:00 23:00 07:00 Intake Total 588.50 ml 1284.5455 ml 977.50 ml Output Total 612 ml 539 ml 482 ml Balance -23.50 ml 745.5455 ml 495.50 ml Exam PHYSICAL EXAMINATION GENERAL: Elderly gentleman, intubated on mechanical ventilation, VITAL SIGNS: see below. HEENT: Pupils equal, round, and reactive to light. CARDIAC: S1, S2, 1/6 systolic ejection murmur CHEST: Diminished air entry bilaterally. ABDOMEN: Mildly distended. Bowel sounds present no guarding or rebound EXTREMITIES: No cyanosis, clubbing edema +1 NEUROLOGIC: Generalized weakness Results/Medications Result Diagram: 02/20/17 0350 02/20/17 0350 Results 24 hrs Chest x-ray Right infiltrate and effusion Laboratory Tests Test 02/19/17 12:40 02/19/17 17:20 02/19/17 21:12 02/19/17 23:47 Bedside Glucose 87 106 108 101 Test 02/20/17 03:50 02/20/17 06:25 White Blood Count 8.2 # Red Blood Count 2.19 L Hemoglobin 7.4 L Hematocrit 22.4 L Mean Corpuscular Volume 102.3 H Mean Corpuscular Hemoglobin 33.8 H Mean Corpuscular Hemoglobin Concent 33.0 Red Cell Distribution Width 15.2 H Platelet Count 71 #L Mean Platelet Volume 12.2 H Neutrophils % 69.0 Lymphocytes % 18.8 Monocytes % 10.0 Eosinophils % 1.5 Basophils % 0.0 Nucleated Red Blood Cells % 0.9 H Neutrophils # 5.6 Lymphocytes # 1.5 Monocytes # 0.8 Eosinophils # 0.1 Basophils # 0.0 Nucleated Red Blood Cells # 0.1 H Sodium Level 134 L Potassium Level 3.6 Chloride Level 109 Carbon Dioxide Level 28 Anion Gap 1 L Blood Urea Nitrogen 41 H Creatinine 1.83 H Glucose Level 121 Calcium Level 7.7 L Phosphorus Level 2.6 Magnesium Level 2.0 Random Vancomycin Level 9.9 Bedside Glucose 131 Medications Current Medications Fentanyl (Sublimaze) 25 mcg Q10M PRN IV SEDATION; Start 02/14/17 at 12:30 Ondansetron HCl (Zofran Inj) 4 mg Q6H PRN IV NAUSEA AND/OR VOMITING; Start 02/14 at 16:00 Morphine Sulfate (morphine) 2 mg Q4H PRN IV SEVERE PAIN LEVEL 7-10 Last administered on 02/20/17 08:30; Admin Dose 2 MG; Start 02/14/17 at 16:00 Pantoprazole 40 mg 40 mg DAILY@06 IV Last administered on 02/20/17 06:23; Admin Dose 40 MG; Start 02/15/17 at 06:00 Amiodarone HCl/ Dextrose (Cordarone Iv/ D5W) 500 ml @ 0 mls/hr Q0M IV Last administered on 02/14/17 17:51; Admin Dose 33.3 MLS/HR; Start 02/14/17 at 17:00; Status Future Hold Acetaminophen (Tylenol Supp) 650 mg Q4H PRN [place] TEMP > 37C; Start 02/14/17 at 18: 00 Acetaminophen (Tylenol Liquid) 650 mg Q4H PRN PO TEMP > 37C Last administered on 02/19/17 23:10; Admin Dose 650 MG; Start 02/14/17 at 18:00 Eye Lubricant (Akwa Oint) 1 applic Q6 BOTH EYES Last administered on 02/20/17 06:23; Admin Dose 1 APPLIC; Start 02/14/17 at 18:00 Eye Lubricant 2 drop 2 drop Q6 BOTH EYES Last administered on 02/20/17 06:23; Admin Dose 2 DROP; Start 02/14/17 at 18:00 Norepinephrine 16 mg/Dextrose 500 ml @ 0 mls/hr TITRATE IV Last administered on 02/19/17 09:23; Admin Dose 15 MLS/HR; Start 02/14/17 at 22:00 Azithromycin 500 mg/Sodium Chloride 250 ml @ 250 mls/hr DAILY IVPB Last administered on 02/20/17 08:30; Admin Dose 250 MLS/HR; Start 02/15/17 at 10:00 Phenylephrine HCl/ Dextrose (Fritz-Syneph/D5W) 500 ml @ 75 mls/hr TITRATE IV ; Start 02/16/17 at 03:30 Miscellaneous Information 1 ea NOTE XX ; Start 02/16/17 at 11:30 Glucose (Glutose) 15 gm Q15M PRN PO DECREASED GLUCOSE; Start 02/16/17 at 11:30 Glucose (Glutose) 22.5 gm Q15M PRN PO DECREASED GLUCOSE; Start 02/16/17 at 11:30 Dextrose (D50w Syringe) 25 ml Q15M PRN IV DECREASED GLUCOSE; Start 02/16/17 at 11:30 Dextrose (D50w Syringe) 50 ml Q15M PRN IV DECREASED GLUCOSE; Start 02/16/17 at 11:30 Glucagon (Glucagen) 1 mg Q15M PRN IM DECREASED GLUCOSE; Start 02/16/17 at 11:30 Glucose 15 gm 15 gm Q15M PRN BUCCAL DECREASED GLUCOSE; Start 02/16/17 at 11:30 Piperacillin Sod/ Tazobactam Sod 50 ml @ 100 mls/hr Q6 IVPB Last administered on 02/20/17 06:23; Admin Dose 100 MLS/HR; Start 02/16/17 at 18:00 Vasopressin 60 unit/Dextrose 60 ml @ 1.8 mls/hr Q12H IV ; Start 02/16/17 at 13: 00 Sodium Chloride (NS) 1,000 ml @ 50 mls/hr Q20H IV Last administered on 03:27; Admin Dose 50 MLS/HR; Start 02/17/17 at 12:00 Aspirin (Aspirin) 81 mg DAILY GTB Last administered on 02/19/17 09:14; Admin Dose 81 MG; Start 02/18/17 at 09:00 Atorvastatin Calcium 20 mg 20 mg HS NGT Last administered on 02/19/17 21:23; Admin Dose 20 MG; Start 02/17/17 at 21:00 Ferric Sodium Gluconate Complex/ Sodium Chloride (Ferrlecit/NS) 110 ml @ 110 mls/hr Q24H IVPB Last administered on 02/19/17 14:29; Admin Dose 110 MLS/HR; Start 02/19/17 at 12:30; Stop 02/23/17 at 13:29 Insulin Aspart NOVOLOG *MILD* ALGORI... Q6 SC ; Start 02/20/17 at 00:00 Vancomycin HCl (Vancocin) 250 ml @ 125 mls/hr ONCE ONCE IVPB ; Start 02/20/17 at 11:00; Stop 02/20/17 at 12:59 Assessment/Plan Chief Complaint/Hosp Course IMP: 1. Cardiopulmonary Arrest: query primary cardiac event leading to respiratory failure and multilobar aspiration pneumonia 2. Respiratory Failure/Vent 3. Multifocal pneumonia--likely aspiration 4. s/p VF 5. ARF 6. Barotrauma--s/p CPR 7. Hypoglycemia 8. Septic shock secondary to above 9. Encephalopathy rule out anoxic brain injury 10. Anemia questionable GI bleed 11. Thrombocytopenia questionable underlying liver disorder RECS: 1. Continue mechanical ventilation currently not stable for weaning trials 2. Pulmonary toilet 3. Continue tube feeding if tolerated 4. Levophed to MAP > 65 mm Hg; 5. Follow-up Cxs 6. Neuro evaluation and EEG 7. Antibiotics per primary team 8. Consider workup for GI bleed with GI consultation. Discussed with staff at bedside 40 min cc time Problems: CAS LIMA MD, [facility] Feb 20, 2017 10:55
[2017-02-20] MEDS ORDERED: VANCOMYCIN 1 GM in NS 250 ML IVPB ONE (11:00)
[2017-02-20] MEDS ORDERED: LIDOCAINE 1% (MPF) 5 ML VIAL SC ONE (11:30)
[2017-02-20] MEDS: SOD FERRIC GLUC COMPLX 125 MG in SOD CHLORIDE 0.9% 100 ML IVPB SCH (12:40)
--- NOTE | 2017-02-20 15:23 | CONS ---
Date/Time of Note Date/Time of Note DATE: 02/20/17 TIME: 15:21 Assessment/Plan Assessment/Plan Additional Assessment/Plan Cardiopulmonary arrest Septic shock Vent dependent respiratory failure Cardiomyopathy with ejection fraction 20% Non-ST elevation MO Acute kidney injury -Patient status post hypothermia protocol. Continue aspirin and statin therapy , no beta-naida given hypotension as well as BERTHA inhibitor given acute kidney injury. Titrate IV pressor to maintain SBP greater than 90 and or map above 60 Consultation Date/Type/Reason Admit Date/Time Feb 14, 2017 at 16:02 Type of Consultation: cv 24 HR Interval Summary Free Text/Dictation Patient seen and examined Exam/Review of Systems Vital Signs Vitals Vital Signs Date Time Temp Pulse Resp B/P Pulse Ox O2 Delivery O2 Flow Rate FiO2 02/20/17 13:30 91 28 124/84 95 Mechanical Ventilator 02/20/17 12:00 99.3 02/20/17 08:00 30 Intake and Output 02/19/17 02/19/17 02/20/17 15:00 23:00 07:00 Intake Total 588.50 ml 1284.5455 ml 977.50 ml Output Total 612 ml 539 ml 482 ml Balance -23.50 ml 745.5455 ml 495.50 ml Exam Sedated and intubated, no apparent distress Head: normocephalic ENMT: intubated Respiratory: other (Coarse breath sounds bilaterally, no wheezing) Cardiovascular: irregular rhythm, other (S1-S2 heard) Gastrointestinal: bowel sounds, non-tender, soft Extremities: other (No edema) Results Result Diagram: 02/20/17 0350 02/20/17 0350 Results 24 hrs Laboratory Tests Test 02/19/17 17:20 02/19/17 21:12 02/19/17 23:47 02/20/17 03:50 Bedside Glucose 106 108 101 White Blood Count 8.2 # Red Blood Count 2.19 L Hemoglobin 7.4 L Hematocrit 22.4 L Mean Corpuscular Volume 102.3 H Mean Corpuscular Hemoglobin 33.8 H Mean Corpuscular Hemoglobin Concent 33.0 Red Cell Distribution Width 15.2 H Platelet Count 71 #L Mean Platelet Volume 12.2 H Neutrophils % 69.0 Lymphocytes % 18.8 Monocytes % 10.0 Eosinophils % 1.5 Basophils % 0.0 Nucleated Red Blood Cells % 0.9 H Neutrophils # 5.6 Lymphocytes # 1.5 Monocytes # 0.8 Eosinophils # 0.1 Basophils # 0.0 Nucleated Red Blood Cells # 0.1 H Sodium Level 134 L Potassium Level 3.6 Chloride Level 109 Carbon Dioxide Level 28 Anion Gap 1 L Blood Urea Nitrogen 41 H Creatinine 1.83 H Glucose Level 121 Calcium Level 7.7 L Phosphorus Level 2.6 Magnesium Level 2.0 Random Vancomycin Level 9.9 Test 02/20/17 06:25 02/20/17 12:51 Bedside Glucose 131 127 Medications Medications Current Medications Fentanyl (Sublimaze) 25 mcg Q10M PRN IV SEDATION; Start 02/14/17 at 12:30 Ondansetron HCl (Zofran Inj) 4 mg Q6H PRN IV NAUSEA AND/OR VOMITING; Start 02/14 at 16:00 Morphine Sulfate (morphine) 2 mg Q4H PRN IV SEVERE PAIN LEVEL 7-10 Last administered on 02/20/17 13:37; Admin Dose 2 MG; Start 02/14/17 at 16:00 Pantoprazole 40 mg 40 mg DAILY@06 IV Last administered on 02/20/17 06:23; Admin Dose 40 MG; Start 02/15/17 at 06:00 Amiodarone HCl/ Dextrose (Cordarone Iv/ D5W) 500 ml @ 0 mls/hr Q0M IV Last administered on 02/14/17 17:51; Admin Dose 33.3 MLS/HR; Start 02/14/17 at 17:00; Status Future Hold Acetaminophen (Tylenol Supp) 650 mg Q4H PRN [place] TEMP > 37C; Start 02/14/17 at 18: 00 Acetaminophen (Tylenol Liquid) 650 mg Q4H PRN PO TEMP > 37C Last administered on 02/19/17 23:10; Admin Dose 650 MG; Start 02/14/17 at 18:00 Eye Lubricant (Akwa Oint) 1 applic Q6 BOTH EYES Last administered on 02/20/17 12:41; Admin Dose 1 APPLIC; Start 02/14/17 at 18:00 Eye Lubricant 2 drop 2 drop Q6 BOTH EYES Last administered on 02/20/17 12:41; Admin Dose 2 DROP; Start 02/14/17 at 18:00 Norepinephrine 16 mg/Dextrose 500 ml @ 0 mls/hr TITRATE IV Last administered on 02/19/17 09:23; Admin Dose 15 MLS/HR; Start 02/14/17 at 22:00 Azithromycin 500 mg/Sodium Chloride 250 ml @ 250 mls/hr DAILY IVPB Last administered on 02/20/17 08:30; Admin Dose 250 MLS/HR; Start 02/15/17 at 10:00 Phenylephrine HCl/ Dextrose (Fritz-Syneph/D5W) 500 ml @ 75 mls/hr TITRATE IV ; Start 02/16/17 at 03:30 Miscellaneous Information 1 ea NOTE XX ; Start 02/16/17 at 11:30 Glucose (Glutose) 15 gm Q15M PRN PO DECREASED GLUCOSE; Start 02/16/17 at 11:30 Glucose (Glutose) 22.5 gm Q15M PRN PO DECREASED GLUCOSE; Start 02/16/17 at 11:30 Dextrose (D50w Syringe) 25 ml Q15M PRN IV DECREASED GLUCOSE; Start 02/16/17 at 11:30 Dextrose (D50w Syringe) 50 ml Q15M PRN IV DECREASED GLUCOSE; Start 02/16/17 at 11:30 Glucagon (Glucagen) 1 mg Q15M PRN IM DECREASED GLUCOSE; Start 02/16/17 at 11:30 Glucose 15 gm 15 gm Q15M PRN BUCCAL DECREASED GLUCOSE; Start 02/16/17 at 11:30 Piperacillin Sod/ Tazobactam Sod 50 ml @ 100 mls/hr Q6 IVPB Last administered on 02/20/17 12:40; Admin Dose 100 MLS/HR; Start 02/16/17 at 18:00 Vasopressin 60 unit/Dextrose 60 ml @ 1.8 mls/hr Q12H IV ; Start 02/16/17 at 13: 00 Sodium Chloride (NS) 1,000 ml @ 50 mls/hr Q20H IV Last administered on 03:27; Admin Dose 50 MLS/HR; Start 02/17/17 at 12:00 Aspirin (Aspirin) 81 mg DAILY GTB Last administered on 02/19/17 09:14; Admin Dose 81 MG; Start 02/18/17 at 09:00 Atorvastatin Calcium 20 mg 20 mg HS NGT Last administered on 02/19/17 21:23; Admin Dose 20 MG; Start 02/17/17 at 21:00 Ferric Sodium Gluconate Complex/ Sodium Chloride (Ferrlecit/NS) 110 ml @ 110 mls/hr Q24H IVPB Last administered on 02/20/17t 12:40; Admin Dose 110 MLS/HR; Start 02/19/17 at 12:30; Stop 02/23/17 at 13:29 Insulin Aspart (Novolog Insulin Pen) NOVOLOG *MILD* ALGORI... Q6 SC ; Start at 00:00 Casey Schuler DO Feb 20, 2017 15:23
--- NOTE | 2017-02-20 15:56 | RADRPT ---
PROCEDURE: Ultrasound guidance for placement of needle in left upper extremity vein. CLINICAL INDICATION: Venous access. TECHNIQUE: Limited sonography of the left upper extremity was performed. Ultrasound images were recorded and s tored in the patient's medical record. COMPARISON: None. FINDINGS: The ultrasound images demonstrate a patent left upper extremity vein. The PICC line was inserted by the PICC line nurse. IMPRESSION: 1. Ultrasound guidance for a needle placement in a left upper extremity vein. 2. The left upper extremity vein is patent. RPTAT: QQ .Guillermo Palafox MD, MD Date Time Electronically viewed and signed by .Guillermo Palafox MD, MD on 02/20/2017 15:56 .R/
--- NOTE | 2017-02-20 15:56 | RADRPT ---
PROCEDURE: XR Chest. CLINICAL INDICATION: Check PICC line position. TECHNIQUE: Single frontal view. COMPARISON: 02/19/2017. FINDINGS: There is a left arm PICC line with the tip in the cavoatrial junction region. The endotracheal tube and nasogastric tube remain in satisfactory position. A left chest tube is also in satisfactory po sition. There is pulmonary edema, unchanged. Lungs are otherwise clear. The heart size is normal. There is no pleural effusion. There is no pneumothorax. IMPRESSION: 1. Left arm PICC line tip in satisfactory position. 2. No other change from 02/19/2017. RPTAT: QQ .Guillermo Palafox MD, MD Date Time Electronically viewed and signed by .Guillermo Palafox MD, MD on 02/20/2017 15:55 .R/
[2017-02-20] MEDS ORDERED: SOD CHLORIDE 0.9% 100 ML ONE (17:39)
[2017-02-20] MEDS: ATORVASTATIN 20 MG TAB NGT SCH (20:33)
[2017-02-20 21:56] LABS: HEMATOCRIT 21.5 % (42.0-52.0); HEMOGLOBIN 7.1 g/dl (14.0-18.0)
[2017-02-20] MEDS: LORAZEPAM 2 MG INJ IV PRN (23:11)
[2017-02-21] VITALS (95 sets, daily range): BP systolic 80–155; BP diastolic 50–111; PULSE 62–96; RESP 0–38
[2017-02-21] MEDS: VASOPRESSIN 60 UNIT in DEXTROSE 5% 57 ML IV SCH ×2 (00:50→12:17)
[2017-02-21] MEDS: morphine 2 MG INJ IV PRN ×3 (01:31→19:35)
[2017-02-21] MEDS: SOD CHLORIDE 0.9% 1,000 ML IV SCH (02:40)
[2017-02-21] MEDS: ACETAMINOPHEN 650MG/20.3ML CUP PO PRN (03:16)
[2017-02-21 05:02] LABS: ADD SCAN DIFF NO
[2017-02-21 05:10] LABS: ABNORMAL IP MESSAGE 1; BASOPHILS % 0.1 % (0.0-2.0); EOSINOPHILS # 0.2 10^3/ul (0.0-0.5); EOSINOPHILS % 2.7 % (0.0-7.0); HEMATOCRIT 24.4 % (42.0-52.0); HEMOGLOBIN 8.1 g/dl (14.0-18.0); LYMPHOCYTES % 13.9 % (15.0-51.0); MEAN CORPUSCULAR HEMOGLOBIN 32.5 pg (29.0-33.0); MEAN CORPUSCULAR HGB CONC 33.2 g/dl (32.0-37.0); MONOCYTE # 0.9 10^3/ul (0.3-0.9); MONOCYTES % 12.2 % (0.0-11.0); NEUTROPHIL # 4.9 10^3/ul (1.6-7.5); NEUTROPHILS % 69.5 % (39.0-77.0); NUCLEATED RED BLOOD CELLS% 0.4 /100WBC (0.0-0.0); PLATELET COUNT 73 10^3/UL (140-415); RED BLOOD COUNT 2.49 10^6/ul (4.70-6.10); RED CELL DISTRIBUTION WIDTH 16.6 % (11.5-14.5)
[2017-02-21] MEDS: PANTOPRAZOLE 40 MG INJ IV SCH (05:19)
[2017-02-21] MEDS: LORAZEPAM 2 MG INJ IV PRN ×3 (05:19→23:26)
[2017-02-21] MEDS: OCULAR LUBRICANT 3.5 GM OPH OINT BOTH EYES SCH ×4 (05:22→23:33)
[2017-02-21] MEDS: ARTIFICIAL TEARS 15 ML OPH BOTH EYES SCH ×4 (05:22→23:33)
[2017-02-21] MEDS: INSULIN ASPART [NOVOLOG] 3 ML PEN SC SCH ×4 (05:32→23:46)
[2017-02-21] MEDS: PIPER-TAZO 2.25 GM (PMX) 50 ML IVPB SCH ×4 (05:33→23:33)
[2017-02-21 05:46] LABS: CALCIUM 7.9 mg/dl (8.4-10.2); CREATININE 1.69 mg/dl (0.61-1.24); MAGNESIUM 1.8 mg/dl (1.7-2.5); PHOSPHORUS 2.8 mg/dl (2.5-4.9); POTASSIUM 3.8 mmol/L (3.5-5.1)
[2017-02-21 08:22] LABS: Allen Test ACCEPTAB; Arterial Base Excess -2.2 mmol/L (-3.0-3); Arterial COHb 0.3 % (0.0-3.0); Arterial Fraction of Oxyhgb 96.4 % (93.0-99.0); Arterial HCO3 20.4 mmol/L (22.0-26.0); Arterial MetHb 0 % (0.0-1.5); Arterial Total Hemglobin 8.6 g/dl (12.0-18.0); MODE VENT - AC
[2017-02-21] MEDS: AZITHROMYCIN 500 MG in SOD CHLORIDE 0.9% 250 ML IVPB SCH (08:38)
[2017-02-21] MEDS: ASPIRIN 81 MG TAB GTB SCH (08:39)
--- NOTE | 2017-02-21 09:16 | CONS ---
Date/Time of Note Date/Time of Note DATE: 02/21/17 TIME: 09:14 Consult Date/Type/Reason Admit Date/Time Feb 14, 2017 at 16:02 Initial Consult Date Type of Consultation: nephrology Subjective pt. seen and examined in icu. good uop. arousable on vent Objective Vital Signs Date Time Temp Pulse Resp B/P Pulse Ox O2 Delivery O2 Flow Rate FiO2 02/21/17 06:45 77 26 95/57 100 02/21/17 06:00 Mechanical Ventilator 02/21/17 05:02 30 02/21/17 04:00 98.7 Intake and Output 02/20/17 02/20/17 02/21/17 15:00 23:00 07:00 Intake Total 1480 ml 1031.24 ml 922.48 ml Output Total 531 ml 820 ml 803 ml Balance 949 ml 211.24 ml 119.48 ml Exam PHYSICAL EXAMINATION GENERAL: Elderly gentleman, intubated on mechanical ventilation, VITAL SIGNS: see below. HEENT: Pupils equal, round, and reactive to light. CARDIAC: S1, S2, 1/6 systolic ejection murmur CHEST: Diminished air entry bilaterally. ABDOMEN: Mildly distended. Bowel sounds present no guarding or rebound EXTREMITIES: No cyanosis, clubbing edema +1 NEUROLOGIC: Generalized weakness Results/Medications Result Diagram: 02/21/1741902/21/17 0420 Results 24 hrs Laboratory Tests Test 02/20/17 12:51 02/20/17 17:51 02/20/17 21:00 02/20/17 23:43 Bedside Glucose 127 151 108 Hemoglobin 7.1 L Hematocrit 21.5 L Test 02/21/17 04:20 02/21/17 05:00 02/21/17 05:24 02/21/17 07:00 White Blood Count 7.0 Red Blood Count 2.49 L Hemoglobin 8.1 L Hematocrit 24.4 L Mean Corpuscular Volume 98.0 Mean Corpuscular Hemoglobin 32.5 Mean Corpuscular Hemoglobin Concent 33.2 Red Cell Distribution Width 16.6 H Platelet Count 73 L Mean Platelet Volume 12.0 H Neutrophils % 69.5 Lymphocytes % 13.9 L Monocytes % 12.2 H Eosinophils % 2.7 Basophils % 0.1 Nucleated Red Blood Cells % 0.4 H Neutrophils # 4.9 Lymphocytes # 1.0 Monocytes # 0.9 Eosinophils # 0.2 Basophils # 0.0 Nucleated Red Blood Cells # 0.0 Sodium Level 133 L Potassium Level 3.8 Chloride Level 110 Carbon Dioxide Level 26 Anion Gap 1 L Blood Urea Nitrogen 36 H Creatinine 1.69 H Glucose Level 98 Calcium Level 7.9 L Phosphorus Level 2.8 Magnesium Level 1.8 Lab Scanned Report BLOOD TRANSFUSION Bedside Glucose 100 Blood Gas Specimen Source Blood arterial Arterial Blood Date Drawn 02/21/2017 8:10:52 AM Arterial Blood pH (Temp corrected) 7.494 H Arterial Blood pCO2 (Temp correct) 27.1 L Arterial Blood pO2 (Temp corrected) 102.1 H Arterial Blood HCO3 20.4 L Arterial Blood Base Excess -2.2 Arterial Blood Oxygen Saturation 96.7 Chris Test ACCEPTAB Arterial Blood Gas Puncture Site Right Radial Arterial Blood Carboxyhemoglobin 0.3 Arterial Blood Methemoglobin 0 Blood Gas A-a O2 Differential 80.0 H Oxyhemoglobin Percent 96.4 Total Hemoglobin 8.6 L Blood Gas Temperature 37.0 Blood Gas Respiration Rate 16.0 Blood Gas Actual Respiration Rate 16 Blood Gas Modality VENT - AC FiO2 30.0 Blood Gas Tidal Volume 500.0 Blood Gas Low PEEP Setting 5.0 Blood Gas Notified Whom JLD Blood Gas Notified Time 02/21/2017 8:22:28 AM Medications Current Medications Fentanyl (Sublimaze) 25 mcg Q10M PRN IV SEDATION; Start 02/14/17 at 12:30 Ondansetron HCl (Zofran Inj) 4 mg Q6H PRN IV NAUSEA AND/OR VOMITING; Start 02/14 at 16:00 Morphine Sulfate (morphine) 2 mg Q4H PRN IV SEVERE PAIN LEVEL 7-10 Last administered on 02/21/17 01:31; Admin Dose 2 MG; Start 02/14/17 at 16:00 Pantoprazole 40 mg 40 mg DAILY@06 IV Last administered on 02/21/17 05:19; Admin Dose 40 MG; Start 02/15/17 at 06:00 Amiodarone HCl/ Dextrose (Cordarone Iv/ D5W) 500 ml @ 0 mls/hr Q0M IV Last administered on 02/14/17 17:51; Admin Dose 33.3 MLS/HR; Start 02/14/17 at 17:00; Status Future Hold Acetaminophen (Tylenol Supp) 650 mg Q4H PRN [place] TEMP > 37C; Start 02/14/17 at 18: 00 Acetaminophen (Tylenol Liquid) 650 mg Q4H PRN PO TEMP > 37C Last administered on 02/21/17 03:16; Admin Dose 650 MG; Start 02/14/17 at 18:00 Eye Lubricant (Akwa Oint) 1 applic Q6 BOTH EYES Last administered on 02/21/17 05:22; Admin Dose 1 APPLIC; Start 02/14/17 at 18:00 Eye Lubricant 2 drop 2 drop Q6 BOTH EYES Last administered on 02/21/17 08:39; Admin Dose 2 DROP; Start 02/14/17 at 18:00 Norepinephrine 16 mg/Dextrose 500 ml @ 0 mls/hr TITRATE IV Last administered on 02/20/17 19:05; Admin Dose 11.25 MLS/HR; Start 02/14/17 at 22:00 Azithromycin 500 mg/Sodium Chloride 250 ml @ 250 mls/hr DAILY IVPB Last administered on 02/21/17 08:38; Admin Dose 250 MLS/HR; Start 02/15/17 at 10:00 Phenylephrine HCl/ Dextrose (Fritz-Syneph/D5W) 500 ml @ 75 mls/hr TITRATE IV ; Start 02/16/17 at 03:30 Miscellaneous Information 1 ea NOTE XX ; Start 02/16/17 at 11:30 Glucose (Glutose) 15 gm Q15M PRN PO DECREASED GLUCOSE; Start 02/16/17 at 11:30 Glucose (Glutose) 22.5 gm Q15M PRN PO DECREASED GLUCOSE; Start 02/16/17 at 11:30 Dextrose (D50w Syringe) 25 ml Q15M PRN IV DECREASED GLUCOSE; Start 02/16/17 at 11:30 Dextrose (D50w Syringe) 50 ml Q15M PRN IV DECREASED GLUCOSE; Start 02/16/17 at 11:30 Glucagon (Glucagen) 1 mg Q15M PRN IM DECREASED GLUCOSE; Start 02/16/17 at 11:30 Glucose 15 gm 15 gm Q15M PRN BUCCAL DECREASED GLUCOSE; Start 02/16/17 at 11:30 Piperacillin Sod/ Tazobactam Sod 50 ml @ 100 mls/hr Q6 IVPB Last administered on 02/21/17 05:33; Admin Dose 100 MLS/HR; Start 02/16/17 at 18:00 Vasopressin 60 unit/Dextrose 60 ml @ 1.8 mls/hr Q12H IV ; Start 02/16/17 at 13: 00 Sodium Chloride (NS) 1,000 ml @ 50 mls/hr Q20H IV Last administered on 02:40; Admin Dose 50 MLS/HR; Start 02/17/17 at 12:00 Aspirin (Aspirin) 81 mg DAILY GTB Last administered on 02/21/17 08:39; Admin Dose 81 MG; Start 02/18/17 at 09:00 Atorvastatin Calcium 20 mg 20 mg HS NGT Last administered on 02/20/17 20:33; Admin Dose 20 MG; Start 02/17/17 at 21:00 Ferric Sodium Gluconate Complex/ Sodium Chloride (Ferrlecit/NS) 110 ml @ 110 mls/hr Q24H IVPB Last administered on 02/20/17 12:40; Admin Dose 110 MLS/HR; Start 02/19/17 at 12:30; Stop 02/23/17 at 13:29 Insulin Aspart (Novolog Insulin Pen) NOVOLOG *MILD* ALGORI... Q6 SC Last administered on 02/20/17 17:54; Admin Dose 1 UNIT; Start 02/20/17 at 00:00 IV Flush (NS 10 ml) 10 ml PRN PRN IV IV PROTOCOL; Start 02/20/17 at 16:00 Lorazepam 1 mg 1 mg Q6H PRN IV AGITATION/ANXIETY Last administered on 05:19; Admin Dose 1 MG; Start 02/20/17 at 21:40 Vancomycin HCl/ Sodium Chloride (Vancocin/NS) 150 ml @ 75 mls/hr Q24H IVPB ; Start 02/21/17 at 12:00 Assessment/Plan Chief Complaint/Hosp Course 1. Nonoliguric acute kidney injury with previous baseline creatinine 0.8 mg/dL. -Etiology of CROW secondary to ATN due to ischemic hypoperfusion shock. -Urinalysis was reviewed evidence of proteinuria no evidence of active sediment -Renal function is fluctuating but overall stable -Continue current treatment plan, keep map greater than 65, continue gentle hydration -Continue supportive care, renally dose all meds, avoid nephrotoxic 2. Anemia. -Monitor H&H levels 3. Mineral bone disorder -Monitor calcium phosphorus levels -Replace phosphorus 4. Hypokalemia -Improved. continue to monitor - 5. Volume overload -Patient's chest x-ray shows pulmonary congestion. -Patient is positive total fluids. -We will continue to defer diuretic therapy in the setting of shock. 6. Cardiac arrest. Patient status post hypothermia protocol -Follow-up with cardiology 7. Ventilator dependent respiratory failure -Vent settings ABGs reviewed -Follow-up with pulmonary 8. Pneumothorax -Status post chest tube placement, continue to monitor 9. Septic shock -Cultures positive for bacteremia -Continue antibiotic regimen, wean off pressors if possible -Follow-up with ID -Monitor closely 10. Mild hyponatremia Monitor Problems: RUBEN JOEL MD Feb 21, 2017 09:15
--- NOTE | 2017-02-21 09:31 | RADRPT ---
PROCEDURE: XR Chest 1 View. CLINICAL INDICATION: Shortness of breath TECHNIQUE: AP view of the chest was obtained. COMPARISON: Yesterday FINDINGS: The cardiomediastinal silhouette is within normal limits. Endotracheal and nasogastric tubes are sta ble and appear in grossly appropriate location. Left-sided PICC line is unchanged. Left-sided ches t tube is stable. No pneumothorax as visualized. The lungs are hyperexpanded. Diffuse interstitia l prominence in both lungs is unchanged. Superimposed patchy alveolar infiltrates throughout both l ungs, right greater than left are stable. The osseous structures are unchanged. Left fourth rib frac ture is stable. IMPRESSION: Stable left chest tube. No visualized pneumothorax. Hyperexpanded lungs with stable interstitial prominence in both lungs. Stable superimposed patchy alveolar infiltrates throughout both lungs, right greater than left. RPTAT: AA .Maurizio Orozco MD, Date Time Electronically viewed and signed by .Maurizio Orozco MD, on 02/21/2017 09:30 .P/
[2017-02-21 10:39] LABS: HEMATOCRIT 24.2 % (42.0-52.0)
[2017-02-21] MEDS: VANCOMYCIN 750 MG in SOD CHLORIDE 0.9% 150 ML IVPB SCH (11:43)
--- NOTE | 2017-02-21 11:58 | CONS ---
Date/Time of Note Date/Time of Note DATE: 02/21/17 TIME: 11:56 Consult Date/Type/Reason Admit Date/Time Feb 14, 2017 at 16:02 Type of Consultation: Pulmonary Subjective Patient opens eyes makes eye contact continues mechanical ventilation. On low- dose Levophed. Objective Vital Signs Date Time Temp Pulse Resp B/P Pulse Ox O2 Delivery O2 Flow Rate FiO2 02/21/17 11:30 75 24 100/77 99 Mechanical Ventilator 02/21/17 08:00 97.9 02/21/17 08:00 30 Intake and Output 02/20/17 02/20/17 02/21/17 15:00 23:00 07:00 Intake Total 1480 ml 1031.24 ml 922.48 ml Output Total 531 ml 820 ml 803 ml Balance 949 ml 211.24 ml 119.48 ml Exam PHYSICAL EXAMINATION GENERAL: Elderly gentleman, intubated on mechanical ventilation, VITAL SIGNS: see below. HEENT: Pupils equal, round, and reactive to light. CARDIAC: S1, S2, 1/6 systolic ejection murmur CHEST: Diminished air entry bilaterally. ABDOMEN: Mildly distended. Bowel sounds present no guarding or rebound EXTREMITIES: No cyanosis, clubbing edema +1 NEUROLOGIC: Generalized weakness Results/Medications Result Diagram: 02/21/17 1016 02/21/17 0420 Results 24 hrs Laboratory Tests Test 02/20/17 12:51 02/20/17 17:51 02/20/17 21:00 02/20/17 23:43 Bedside Glucose 127 151 108 Hemoglobin 7.1 L Hematocrit 21.5 L Test 02/21/17 04:20 02/21/17 05:00 02/21/17 05:24 02/21/17 07:00 White Blood Count 7.0 Red Blood Count 2.49 L Hemoglobin 8.1 L Hematocrit 24.4 L Mean Corpuscular Volume 98.0 Mean Corpuscular Hemoglobin 32.5 Mean Corpuscular Hemoglobin Concent 33.2 Red Cell Distribution Width 16.6 H Platelet Count 73 L Mean Platelet Volume 12.0 H Neutrophils % 69.5 Lymphocytes % 13.9 L Monocytes % 12.2 H Eosinophils % 2.7 Basophils % 0.1 Nucleated Red Blood Cells % 0.4 H Neutrophils # 4.9 Lymphocytes # 1.0 Monocytes # 0.9 Eosinophils # 0.2 Basophils # 0.0 Nucleated Red Blood Cells # 0.0 Sodium Level 133 L Potassium Level 3.8 Chloride Level 110 Carbon Dioxide Level 26 Anion Gap 1 L Blood Urea Nitrogen 36 H Creatinine 1.69 H Glucose Level 98 Calcium Level 7.9 L Phosphorus Level 2.8 Magnesium Level 1.8 Lab Scanned Report BLOOD TRANSFUSION Bedside Glucose 100 Blood Gas Specimen Source Blood arterial Arterial Blood Date Drawn 02/21/2017 8:10:52 AM Arterial Blood pH (Temp corrected) 7.494 H Arterial Blood pCO2 (Temp correct) 27.1 L Arterial Blood pO2 (Temp corrected) 102.1 H Arterial Blood HCO3 20.4 L Arterial Blood Base Excess -2.2 Arterial Blood Oxygen Saturation 96.7 Chris Test ACCEPTAB Arterial Blood Gas Puncture Site Right Radial Arterial Blood Carboxyhemoglobin 0.3 Arterial Blood Methemoglobin 0 Blood Gas A-a O2 Differential 80.0 H Oxyhemoglobin Percent 96.4 Total Hemoglobin 8.6 L Blood Gas Temperature 37.0 Blood Gas Respiration Rate 16.0 Blood Gas Actual Respiration Rate 16 Blood Gas Modality VENT - AC FiO2 30.0 Blood Gas Tidal Volume 500.0 Blood Gas Low PEEP Setting 5.0 Blood Gas Notified Whom JLD Blood Gas Notified Time 02/21/2017 8:22:28 AM Test 02/21/17 10:16 02/21/17 11:49 Hemoglobin 8.0 L Hematocrit 24.2 L Bedside Glucose 107 Medications Current Medications Fentanyl (Sublimaze) 25 mcg Q10M PRN IV SEDATION; Start 02/14/17 at 12:30 Ondansetron HCl (Zofran Inj) 4 mg Q6H PRN IV NAUSEA AND/OR VOMITING; Start 02/14 at 16:00 Morphine Sulfate (morphine) 2 mg Q4H PRN IV SEVERE PAIN LEVEL 7-10 Last administered on 02/21/17 01:31; Admin Dose 2 MG; Start 02/14/17 at 16:00 Pantoprazole 40 mg 40 mg DAILY@06 IV Last administered on 02/21/17 05:19; Admin Dose 40 MG; Start 02/15/17 at 06:00 Amiodarone HCl/ Dextrose (Cordarone Iv/ D5W) 500 ml @ 0 mls/hr Q0M IV Last administered on 02/14/17 17:51; Admin Dose 33.3 MLS/HR; Start 02/14/17 at 17:00; Status Future Hold Acetaminophen (Tylenol Supp) 650 mg Q4H PRN [place] TEMP > 37C; Start 02/14/17 at 18: 00 Acetaminophen (Tylenol Liquid) 650 mg Q4H PRN PO TEMP > 37C Last administered on 02/21/17 03:16; Admin Dose 650 MG; Start 02/14/17 at 18:00 Eye Lubricant (Akwa Oint) 1 applic Q6 BOTH EYES Last administered on 02/21/17 11:47; Admin Dose 1 APPLIC; Start 02/14/17 at 18:00 Eye Lubricant 2 drop 2 drop Q6 BOTH EYES Last administered on 02/21/17 08:39; Admin Dose 2 DROP; Start 02/14/17 at 18:00 Norepinephrine 16 mg/Dextrose 500 ml @ 0 mls/hr TITRATE IV Last administered on 02/20/17 19:05; Admin Dose 11.25 MLS/HR; Start 02/14/17 at 22:00 Azithromycin 500 mg/Sodium Chloride 250 ml @ 250 mls/hr DAILY IVPB Last administered on 02/21/17 08:38; Admin Dose 250 MLS/HR; Start 02/15/17 at 10:00 Phenylephrine HCl/ Dextrose (Fritz-Syneph/D5W) 500 ml @ 75 mls/hr TITRATE IV ; Start 02/16/17 at 03:30 Miscellaneous Information 1 ea NOTE XX ; Start 02/16/17 at 11:30 Glucose (Glutose) 15 gm Q15M PRN PO DECREASED GLUCOSE; Start 02/16/17 at 11:30 Glucose (Glutose) 22.5 gm Q15M PRN PO DECREASED GLUCOSE; Start 02/16/17 at 11:30 Dextrose (D50w Syringe) 25 ml Q15M PRN IV DECREASED GLUCOSE; Start 02/16/17 at 11:30 Dextrose (D50w Syringe) 50 ml Q15M PRN IV DECREASED GLUCOSE; Start 02/16/17 at 11:30 Glucagon (Glucagen) 1 mg Q15M PRN IM DECREASED GLUCOSE; Start 02/16/17 at 11:30 Glucose 15 gm 15 gm Q15M PRN BUCCAL DECREASED GLUCOSE; Start 02/16/17 at 11:30 Piperacillin Sod/ Tazobactam Sod 50 ml @ 100 mls/hr Q6 IVPB Last administered on 02/21/17 11:42; Admin Dose 100 MLS/HR; Start 02/16/17 at 18:00 Vasopressin 60 unit/Dextrose 60 ml @ 1.8 mls/hr Q12H IV ; Start 02/16/17 at 13: 00 Sodium Chloride (NS) 1,000 ml @ 50 mls/hr Q20H IV Last administered on 02:40; Admin Dose 50 MLS/HR; Start 02/17/17 at 12:00 Aspirin (Aspirin) 81 mg DAILY GTB Last administered on 02/21/17 08:39; Admin Dose 81 MG; Start 02/18/17 at 09:00 Atorvastatin Calcium 20 mg 20 mg HS NGT Last administered on 02/20/17 20:33; Admin Dose 20 MG; Start 02/17/17 at 21:00 Ferric Sodium Gluconate Complex/ Sodium Chloride (Ferrlecit/NS) 110 ml @ 110 mls/hr Q24H IVPB Last administered on 02/20/17 12:40; Admin Dose 110 MLS/HR; Start 02/19/17 at 12:30; Stop 02/23/17 at 13:29 Insulin Aspart (Novolog Insulin Pen) NOVOLOG *MILD* ALGORI... Q6 SC Last administered on 02/20/17 17:54; Admin Dose 1 UNIT; Start 02/20/17 at 00:00 IV Flush (NS 10 ml) 10 ml PRN PRN IV IV PROTOCOL; Start 02/20/17 at 16:00 Lorazepam 1 mg 1 mg Q6H PRN IV AGITATION/ANXIETY Last administered on 05:19; Admin Dose 1 MG; Start 02/20/17 at 21:40 Vancomycin HCl/ Sodium Chloride (Vancocin/NS) 150 ml @ 75 mls/hr Q24H IVPB Last administered on 02/21/17 11:43; Admin Dose 75 MLS/HR; Start 02/21/17 at 12 :00 Assessment/Plan Chief Complaint/Hosp Course IMP: 1. Cardiopulmonary Arrest: query primary cardiac event leading to respiratory failure and multilobar aspiration pneumonia 2. Respiratory Failure/Vent 3. Multifocal pneumonia--likely aspiration 4. s/p VF 5. ARF 6. Barotrauma--s/p CPR 7. Hypoglycemia 8. Septic shock secondary to above 9. Encephalopathy rule out anoxic brain injury 10. Anemia questionable GI bleed 11. Thrombocytopenia questionable underlying liver disorder RECS: 1. CPAP weaning trial today 2. Pulmonary toilet 3. Continue tube feeding if tolerated 4. Levophed to MAP > 65 mm Hg; 5. Follow-up Cxs Discussed with staff at bedside 40 min cc time Problems: CAS LIMA MD, [facility] Feb 21, 2017 11:58
[2017-02-21] MEDS: SOD FERRIC GLUC COMPLX 125 MG in SOD CHLORIDE 0.9% 100 ML IVPB SCH (12:16)
--- NOTE | 2017-02-21 12:21 | CONS ---
Date/Time of Note Date/Time of Note DATE: 02/21/17 TIME: 12:20 Assessment/Plan Assessment/Plan Additional Assessment/Plan Cardiopulmonary arrest Septic shock Vent dependent respiratory failure Cardiomyopathy with ejection fraction 20% Non-ST elevation [place] Acute kidney injury Acute blood loss anemia -Patient status post hypothermia protocol. Continue aspirin and statin therapy , no beta-naida given hypotension as well as BERTHA inhibitor given acute kidney injury. Consultation Date/Type/Reason Admit Date/Time Feb 14, 2017 at 16:02 Type of Consultation: cv 24 HR Interval Summary Free Text/Dictation Patient seen and examined Exam/Review of Systems Vital Signs Vitals Vital Signs Date Time Temp Pulse Resp B/P Pulse Ox O2 Delivery O2 Flow Rate FiO2 02/21/17 12:00 98.5 80 103/71 100 Mechanical Ventilator 02/21/17 11:45 23 02/21/17 08:00 30 Intake and Output 02/20/17 02/20/17 02/21/17 15:00 23:00 07:00 Intake Total 1480 ml 1031.24 ml 972.48 ml Output Total 531 ml 820 ml 819 ml Balance 949 ml 211.24 ml 153.48 ml Exam Sedated and intubated, no apparent distress Head: normocephalic ENMT: intubated Respiratory: other (Coast breath sounds bilaterally, no wheezing) Cardiovascular: irregular rhythm, other (S1-S2 heard) Gastrointestinal: bowel sounds, non-tender, soft Extremities: edema (Trace) Results Result Diagram: 02/21/17 1016 02/21/17 0420 Results 24 hrs Laboratory Tests Test 02/20/17 12:51 02/20/17 17:51 02/20/17 21:00 02/20/17 23:43 Bedside Glucose 127 151 108 Hemoglobin 7.1 L Hematocrit 21.5 L Test 02/21/17 04:20 02/21/17 05:00 02/21/17 05:24 02/21/17 07:00 White Blood Count 7.0 Red Blood Count 2.49 L Hemoglobin 8.1 L Hematocrit 24.4 L Mean Corpuscular Volume 98.0 Mean Corpuscular Hemoglobin 32.5 Mean Corpuscular Hemoglobin Concent 33.2 Red Cell Distribution Width 16.6 H Platelet Count 73 L Mean Platelet Volume 12.0 H Neutrophils % 69.5 Lymphocytes % 13.9 L Monocytes % 12.2 H Eosinophils % 2.7 Basophils % 0.1 Nucleated Red Blood Cells % 0.4 H Neutrophils # 4.9 Lymphocytes # 1.0 Monocytes # 0.9 Eosinophils # 0.2 Basophils # 0.0 Nucleated Red Blood Cells # 0.0 Sodium Level 133 L Potassium Level 3.8 Chloride Level 110 Carbon Dioxide Level 26 Anion Gap 1 L Blood Urea Nitrogen 36 H Creatinine 1.69 H Glucose Level 98 Calcium Level 7.9 L Phosphorus Level 2.8 Magnesium Level 1.8 Lab Scanned Report BLOOD TRANSFUSION Bedside Glucose 100 Blood Gas Specimen Source Blood arterial Arterial Blood Date Drawn 02/21/2017 8:10:52 AM Arterial Blood pH (Temp corrected) 7.494 H Arterial Blood pCO2 (Temp correct) 27.1 L Arterial Blood pO2 (Temp corrected) 102.1 H Arterial Blood HCO3 20.4 L Arterial Blood Base Excess -2.2 Arterial Blood Oxygen Saturation 96.7 Chris Test ACCEPTAB Arterial Blood Gas Puncture Site Right Radial Arterial Blood Carboxyhemoglobin 0.3 Arterial Blood Methemoglobin 0 Blood Gas A-a O2 Differential 80.0 H Oxyhemoglobin Percent 96.4 Total Hemoglobin 8.6 L Blood Gas Temperature 37.0 Blood Gas Respiration Rate 16.0 Blood Gas Actual Respiration Rate 16 Blood Gas Modality VENT - AC FiO2 30.0 Blood Gas Tidal Volume 500.0 Blood Gas Low PEEP Setting 5.0 Blood Gas Notified Whom JLD Blood Gas Notified Time 02/21/2017 8:22:28 AM Test 02/21/17 10:16 02/21/17 11:49 Hemoglobin 8.0 L Hematocrit 24.2 L Bedside Glucose 107 Medications Medications Current Medications Fentanyl (Sublimaze) 25 mcg Q10M PRN IV SEDATION; Start 02/14/17 at 12:30 Ondansetron HCl (Zofran Inj) 4 mg Q6H PRN IV NAUSEA AND/OR VOMITING; Start 02/14 at 16:00 Morphine Sulfate (morphine) 2 mg Q4H PRN IV SEVERE PAIN LEVEL 7-10 Last administered on 02/21/17 01:31; Admin Dose 2 MG; Start 02/14/17 at 16:00 Pantoprazole 40 mg 40 mg DAILY@06 IV Last administered on 02/21/17 05:19; Admin Dose 40 MG; Start 02/15/17 at 06:00 Amiodarone HCl/ Dextrose (Cordarone Iv/ D5W) 500 ml @ 0 mls/hr Q0M IV Last administered on 02/14/17 17:51; Admin Dose 33.3 MLS/HR; Start 02/14/17 at 17:00; Status Future Hold Acetaminophen (Tylenol Supp) 650 mg Q4H PRN [place] TEMP > 37C; Start 02/14/17 at 18: 00 Acetaminophen (Tylenol Liquid) 650 mg Q4H PRN PO TEMP > 37C Last administered on 02/21/17 03:16; Admin Dose 650 MG; Start 02/14/17 at 18:00 Eye Lubricant (Akwa Oint) 1 applic Q6 BOTH EYES Last administered on 02/21/17 11:47; Admin Dose 1 APPLIC; Start 02/14/17 at 18:00 Eye Lubricant 2 drop 2 drop Q6 BOTH EYES Last administered on 02/21/17 08:39; Admin Dose 2 DROP; Start 02/14/17 at 18:00 Norepinephrine 16 mg/Dextrose 500 ml @ 0 mls/hr TITRATE IV Last administered on 02/20/17 19:05; Admin Dose 11.25 MLS/HR; Start 02/14/17 at 22:00 Azithromycin 500 mg/Sodium Chloride 250 ml @ 250 mls/hr DAILY IVPB Last administered on 02/21/17 08:38; Admin Dose 250 MLS/HR; Start 02/15/17 at 10:00 Phenylephrine HCl/ Dextrose (Fritz-Syneph/D5W) 500 ml @ 75 mls/hr TITRATE IV ; Start 02/16/17 at 03:30 Miscellaneous Information 1 ea NOTE XX ; Start 02/16/17 at 11:30 Glucose (Glutose) 15 gm Q15M PRN PO DECREASED GLUCOSE; Start 02/16/17 at 11:30 Glucose (Glutose) 22.5 gm Q15M PRN PO DECREASED GLUCOSE; Start 02/16/17 at 11:30 Dextrose (D50w Syringe) 25 ml Q15M PRN IV DECREASED GLUCOSE; Start 02/16/17 at 11:30 Dextrose (D50w Syringe) 50 ml Q15M PRN IV DECREASED GLUCOSE; Start 02/16/17 at 11:30 Glucagon (Glucagen) 1 mg Q15M PRN IM DECREASED GLUCOSE; Start 02/16/17 at 11:30 Glucose 15 gm 15 gm Q15M PRN BUCCAL DECREASED GLUCOSE; Start 02/16/17 at 11:30 Piperacillin Sod/ Tazobactam Sod 50 ml @ 100 mls/hr Q6 IVPB Last administered on 02/21/17 11:42; Admin Dose 100 MLS/HR; Start 02/16/17 at 18:00 Vasopressin 60 unit/Dextrose 60 ml @ 1.8 mls/hr Q12H IV ; Start 02/16/17 at 13: 00 Sodium Chloride (NS) 1,000 ml @ 50 mls/hr Q20H IV Last administered on 02:40; Admin Dose 50 MLS/HR; Start 02/17/17 at 12:00 Aspirin (Aspirin) 81 mg DAILY GTB Last administered on 02/21/17 08:39; Admin Dose 81 MG; Start 02/18/17 at 09:00 Atorvastatin Calcium 20 mg 20 mg HS NGT Last administered on 02/20/17 20:33; Admin Dose 20 MG; Start 02/17/17 at 21:00 Ferric Sodium Gluconate Complex/ Sodium Chloride (Ferrlecit/NS) 110 ml @ 110 mls/hr Q24H IVPB Last administered on 02/20/17 12:40; Admin Dose 110 MLS/HR; Start 02/19/17 at 12:30; Stop 02/23/17 at 13:29 Insulin Aspart (Novolog Insulin Pen) NOVOLOG *MILD* ALGORI... Q6 SC Last administered on 02/20/17 17:54; Admin Dose 1 UNIT; Start 02/20/17 at 00:00 IV Flush (NS 10 ml) 10 ml PRN PRN IV IV PROTOCOL; Start 02/20/17 at 16:00 Lorazepam 1 mg 1 mg Q6H PRN IV AGITATION/ANXIETY Last administered on 05:19; Admin Dose 1 MG; Start 02/20/17 at 21:40 Vancomycin HCl/ Sodium Chloride (Vancocin/NS) 150 ml @ 75 mls/hr Q24H IVPB Last administered on 02/21/17 11:43; Admin Dose 75 MLS/HR; Start 02/21/17 at 12 :00 Casey Schuler DO Feb 21, 2017 12:21
--- NOTE | 2017-02-21 15:49 | PN ---
Date/Time of Note Date/Time of Note DATE: 02/21/17 TIME: 15:48 Assessment/Plan VTE Prophylaxis VTE Prophylaxis Intervention: SCD's Assessment/Plan Chief Complaint/Hosp Course 1. Cardiac arrest secondary to V-fib status post ACLS with defibrillation and return of circulation Intubated and vent dependent at this time Status post hypothermia protocol Chest tube placed for pneumothorax caused by repeated chest compressions Cardiology consultation, patient does not meet criteria for emergent cardiac catheterization per city collector on-call Broad-spectrum antibiotics 2. Acute respiratory distress secondary to cardiac arrest Continue vent management Pulmonology consultation appreciated 3. 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 Pancytopenia possibly secondary to sepsis-WBC has increased Continue antibiotics HIV negative 6. Acute kidney disease secondary to cardiac arrest Continue gentle IV fluid, improving Nephrology has been consulted, follow-up renal panel in a.m. 7. Hyperglycemia-possibly reactive A1c is within normal limits 8. Hyponatremia likely secondary to dehydration-resolved IV fluids with normal saline 9. Bacteremia secondary to gram-positive cocci Vancomycin IV 10. Acute on chronic anemia, follow up stool for guaiac Follow-up hemoglobin hematocrit in a.m. Will transfuse if hemoglobin is less than 7.5 Prophylaxis: SCDs Note: Patient does not have any family member nor friend that could make make medical decisions for him. At this time patient status is critical and he may need several procedures such as PICC line placement and blood transfusion. Patient has been on pressors and sedation and IV fluids and IV antibiotics. Due to this fact patient will need to have a PICC line place. Also he is found to be anemic and he may need blood transfusion if his hemoglobin is less than 7.5. Due to lack of family member at this time will need to proceed with necessary medical management such as blood transfusion PICC line placement Problems: Subjective 24 Hr Interval Summary Subjective hx not possible: pt non-verbal Exam/Review of Systems Vital Signs Vitals Vital Signs Date Time Temp Pulse Resp B/P Pulse Ox O2 Delivery O2 Flow Rate FiO2 02/21/17 13:45 86 33 98 30 02/21/17 12:00 98.5 103/71 Mechanical Ventilator Intake and Output 02/20/17 02/20/17 02/21/17 15:00 23:00 07:00 Intake Total 1480 ml 1031.24 ml 1026.23 ml Output Total 531 ml 820 ml 819 ml Balance 949 ml 211.24 ml 207.23 ml Exam Constitutional: non-verbal ENMT: intubated Respiratory: clear to auscultation Cardiovascular: regular rate and rhythm Gastrointestinal: soft, No distended Musculoskeletal: nl extremities to inspection Results Result Diagram: 02/21/17 1016 02/21/17 0420 Results 24 hrs Laboratory Tests Test 02/20/17 17:51 02/20/17 21:00 02/20/17 23:43 02/21/17 04:20 Bedside Glucose 151 108 Hemoglobin 7.1 L 8.1 L Hematocrit 21.5 L 24.4 L White Blood Count 7.0 Red Blood Count 2.49 L Mean Corpuscular Volume 98.0 Mean Corpuscular Hemoglobin 32.5 Mean Corpuscular Hemoglobin Concent 33.2 Red Cell Distribution Width 16.6 H Platelet Count 73 L Mean Platelet Volume 12.0 H Neutrophils % 69.5 Lymphocytes % 13.9 L Monocytes % 12.2 H Eosinophils % 2.7 Basophils % 0.1 Nucleated Red Blood Cells % 0.4 H Neutrophils # 4.9 Lymphocytes # 1.0 Monocytes # 0.9 Eosinophils # 0.2 Basophils # 0.0 Nucleated Red Blood Cells # 0.0 Sodium Level 133 L Potassium Level 3.8 Chloride Level 110 Carbon Dioxide Level 26 Anion Gap 1 L Blood Urea Nitrogen 36 H Creatinine 1.69 H Glucose Level 98 Calcium Level 7.9 L Phosphorus Level 2.8 Magnesium Level 1.8 Test 02/21/17 05:00 02/21/17 05:24 02/21/17 07:00 02/21/17 10:16 Lab Scanned Report BLOOD TRANSFUSION Bedside Glucose 100 Blood Gas Specimen Source Blood arterial Arterial Blood Date Drawn 02/21/2017 8:10:52 AM Arterial Blood pH (Temp corrected) 7.494 H Arterial Blood pCO2 (Temp correct) 27.1 L Arterial Blood pO2 (Temp corrected) 102.1 H Arterial Blood HCO3 20.4 L Arterial Blood Base Excess -2.2 Arterial Blood Oxygen Saturation 96.7 Chris Test ACCEPTAB Arterial Blood Gas Puncture Site Right Radial Arterial Blood Carboxyhemoglobin 0.3 Arterial Blood Methemoglobin 0 Blood Gas A-a O2 Differential 80.0 H Oxyhemoglobin Percent 96.4 Total Hemoglobin 8.6 L Blood Gas Temperature 37.0 Blood Gas Respiration Rate 16.0 Blood Gas Actual Respiration Rate 16 Blood Gas Modality VENT - AC FiO2 30.0 Blood Gas Tidal Volume 500.0 Blood Gas Low PEEP Setting 5.0 Blood Gas Notified Whom JLD Blood Gas Notified Time 02/21/2017 8:22:28 AM Hemoglobin 8.0 L Hematocrit 24.2 L Test 02/21/17 11:49 Bedside Glucose 107 Medications Medications Current Medications Fentanyl (Sublimaze) 25 mcg Q10M PRN IV SEDATION; Start 02/14/17 at 12:30 Ondansetron HCl (Zofran Inj) 4 mg Q6H PRN IV NAUSEA AND/OR VOMITING; Start 02/14 at 16:00 Morphine Sulfate (morphine) 2 mg Q4H PRN IV SEVERE PAIN LEVEL 7-10 Last administered on 02/21/17 13:46; Admin Dose 2 MG; Start 02/14/17 at 16:00 Pantoprazole 40 mg 40 mg DAILY@06 IV Last administered on 02/21/17 05:19; Admin Dose 40 MG; Start 02/15/17 at 06:00 Amiodarone HCl/ Dextrose (Cordarone Iv/ D5W) 500 ml @ 0 mls/hr Q0M IV Last administered on 02/14/17 17:51; Admin Dose 33.3 MLS/HR; Start 02/14/17 at 17:00; Status Future Hold Acetaminophen (Tylenol Supp) 650 mg Q4H PRN [place] TEMP > 37C; Start 02/14/17 at 18: 00 Acetaminophen (Tylenol Liquid) 650 mg Q4H PRN PO TEMP > 37C Last administered on 02/21/17 03:16; Admin Dose 650 MG; Start 02/14/17 at 18:00 Eye Lubricant (Akwa Oint) 1 applic Q6 BOTH EYES Last administered on 02/21/17 11:47; Admin Dose 1 APPLIC; Start 02/14/17 at 18:00 Eye Lubricant 2 drop 2 drop Q6 BOTH EYES Last administered on 02/21/17 08:39; Admin Dose 2 DROP; Start 02/14/17 at 18:00 Norepinephrine 16 mg/Dextrose 500 ml @ 0 mls/hr TITRATE IV Last administered on 02/20/17 19:05; Admin Dose 11.25 MLS/HR; Start 02/14/17 at 22:00 Azithromycin 500 mg/Sodium Chloride 250 ml @ 250 mls/hr DAILY IVPB Last administered on 02/21/17 08:38; Admin Dose 250 MLS/HR; Start 02/15/17 at 10:00 Phenylephrine HCl/ Dextrose (Fritz-Syneph/D5W) 500 ml @ 75 mls/hr TITRATE IV ; Start 02/16/17 at 03:30 Miscellaneous Information 1 ea NOTE XX ; Start 02/16/17 at 11:30 Glucose (Glutose) 15 gm Q15M PRN PO DECREASED GLUCOSE; Start 02/16/17 at 11:30 Glucose (Glutose) 22.5 gm Q15M PRN PO DECREASED GLUCOSE; Start 02/16/17 at 11:30 Dextrose (D50w Syringe) 25 ml Q15M PRN IV DECREASED GLUCOSE; Start 02/16/17 at 11:30 Dextrose (D50w Syringe) 50 ml Q15M PRN IV DECREASED GLUCOSE; Start 02/16/17 at 11:30 Glucagon (Glucagen) 1 mg Q15M PRN IM DECREASED GLUCOSE; Start 02/16/17 at 11:30 Glucose 15 gm 15 gm Q15M PRN BUCCAL DECREASED GLUCOSE; Start 02/16/17 at 11:30 Piperacillin Sod/ Tazobactam Sod 50 ml @ 100 mls/hr Q6 IVPB Last administered on 02/21/17 11:42; Admin Dose 100 MLS/HR; Start 02/16/17 at 18:00 Vasopressin 60 unit/Dextrose 60 ml @ 1.8 mls/hr Q12H IV ; Start 02/16/17 at 13: 00 Sodium Chloride (NS) 1,000 ml @ 50 mls/hr Q20H IV Last administered on 02:40; Admin Dose 50 MLS/HR; Start 02/17/17 at 12:00 Aspirin (Aspirin) 81 mg DAILY GTB Last administered on 02/21/17 08:39; Admin Dose 81 MG; Start 02/18/17 at 09:00 Atorvastatin Calcium 20 mg 20 mg HS NGT Last administered on 02/20/17 20:33; Admin Dose 20 MG; Start 02/17/17 at 21:00 Ferric Sodium Gluconate Complex/ Sodium Chloride (Ferrlecit/NS) 110 ml @ 110 mls/hr Q24H IVPB Last administered on 02/21/17 12:16; Admin Dose 110 MLS/HR; Start 02/19/17 at 12:30; Stop 02/23/17 at 13:29 Insulin Aspart (Novolog Insulin Pen) NOVOLOG *MILD* ALGORI... Q6 SC Last administered on 02/20/17 17:54; Admin Dose 1 UNIT; Start 02/20/17 at 00:00 IV Flush (NS 10 ml) 10 ml PRN PRN IV IV PROTOCOL; Start 02/20/17 at 16:00 Lorazepam 1 mg 1 mg Q6H PRN IV AGITATION/ANXIETY Last administered on 12:16; Admin Dose 1 MG; Start 02/20/17 at 21:40 Vancomycin HCl/ Sodium Chloride (Vancocin/NS) 150 ml @ 75 mls/hr Q24H IVPB Last administered on 02/21/17 11:43; Admin Dose 75 MLS/HR; Start 02/21/17 at 12 :00 GUILHERME YATES Feb 21, 2017 15:49
[2017-02-21] MEDS: ATORVASTATIN 20 MG TAB NGT SCH (21:51)
[2017-02-22] VITALS (98 sets, daily range): BP systolic 77–149; BP diastolic 50–92; PULSE 58–96; RESP 9–36
[2017-02-22] MEDS: VASOPRESSIN 60 UNIT in DEXTROSE 5% 57 ML IV SCH ×2 (01:00→12:56)
[2017-02-22] MEDS: SOD CHLORIDE 0.9% 1,000 ML IV SCH (01:15)
[2017-02-22] MEDS: MIDAZOLAM (DRIP) 50 mg/50 mL 50 ML IV SCH (02:39)
[2017-02-22] MEDS ORDERED: PROPOFOL 100 ML ONE (03:33)
[2017-02-22] MEDS: PROPOFOL 100 ML IV SCH ×2 (03:41→10:50)
[2017-02-22] MEDS: OCULAR LUBRICANT 3.5 GM OPH OINT BOTH EYES SCH ×3 (05:08→18:30)
[2017-02-22] MEDS: ARTIFICIAL TEARS 15 ML OPH BOTH EYES SCH ×3 (05:08→18:30)
[2017-02-22] MEDS: PIPER-TAZO 2.25 GM (PMX) 50 ML IVPB SCH ×3 (05:09→18:34)
[2017-02-22] MEDS: PANTOPRAZOLE 40 MG INJ IV SCH (05:10)
[2017-02-22 05:18] LABS: ADD SCAN DIFF NO
[2017-02-22 05:24] LABS: ABNORMAL IP MESSAGE 1; BASOPHILS % 0.1 % (0.0-2.0); EOSINOPHILS # 0.2 10^3/ul (0.0-0.5); EOSINOPHILS % 1.7 % (0.0-7.0); HEMATOCRIT 24.2 % (42.0-52.0); HEMOGLOBIN 7.9 g/dl (14.0-18.0); LYMPHOCYTES # 0.8 10^3/ul (0.8-2.9); LYMPHOCYTES % 8.8 % (15.0-51.0); MEAN CORPUSCULAR HEMOGLOBIN 32.4 pg (29.0-33.0); MEAN CORPUSCULAR HGB CONC 32.6 g/dl (32.0-37.0); MEAN CORPUSCULAR VOLUME 99.2 fl (82.0-101.0); MEAN PLATELET VOLUME 11.4 fl (7.4-10.4); MONOCYTE # 0.8 10^3/ul (0.3-0.9); MONOCYTES % 8.5 % (0.0-11.0); NEUTROPHIL # 7.3 10^3/ul (1.6-7.5); NEUTROPHILS % 79.3 % (39.0-77.0); PLATELET COUNT 94 10^3/UL (140-415); RED BLOOD COUNT 2.44 10^6/ul (4.70-6.10); RED CELL DISTRIBUTION WIDTH 16.9 % (11.5-14.5); WHITE BLOOD COUNT 9.2 10^3/ul (4.8-10.8)
[2017-02-22 05:45] LABS: CALCIUM 7.9 mg/dl (8.4-10.2); CREATININE 1.77 mg/dl (0.61-1.24); POTASSIUM 4.2 mmol/L (3.5-5.1)
[2017-02-22] MEDS: INSULIN ASPART [NOVOLOG] 3 ML PEN SC SCH ×3 (05:56→18:00)
--- NOTE | 2017-02-22 07:15 | CONS ---
Date/Time of Note Date/Time of Note DATE: 02/22/17 TIME: 07:11 Consult Date/Type/Reason Admit Date/Time Feb 14, 2017 at 16:02 Initial Consult Date Type of Consultation: neph Subjective This is a 68-year-old male with a past medical history of hypertension dyslipidemia history of chronic back pain history of homelessness who was brought into [facility] emergency room after was found down by paramedics. The patient was unresponsive was in PEA upon arrival in the ED patient was in v fib. ACLS was performed after reports patient has spontaneous return of circulation. The patient was then transferred to intensive care unit where he underwent a code arrest 2-3 more times. The patient underwent hypothermia protocol. Patient also had a chest tube placed due to pneumothorax. Patient followed hypothermia protocol has been able to be arousable. Patient had a previous creatinine of 0.8 mg/dL on 2015. On admission patient had a creatinine 1.25 mg/dL pt. seen and examined in icu. good uop. arousable on vent GENERAL: Elderly gentleman, intubated on mechanical ventilation, VITAL SIGNS: see below. HEENT: Pupils equal, round, and reactive to light. CARDIAC: S1, S2, 1/6 systolic ejection murmur CHEST: Diminished air entry bilaterally. ABDOMEN: Mildly distended. Bowel sounds present no guarding or rebound EXTREMITIES: No cyanosis, clubbing edema +1 NEUROLOGIC: Generalized weakness Objective Vital Signs Date Time Temp Pulse Resp B/P Pulse Ox O2 Delivery O2 Flow Rate FiO2 02/22/17 06:15 67 25 91/61 99 Mechanical Ventilator 02/22/17 04:55 30 02/22/17 04:00 99.1 Intake and Output 02/21/17 02/21/17 02/22/17 15:00 23:00 07:00 Intake Total 925.00 ml 832.5 ml 336 ml Output Total 449 ml 828 ml 720 ml Balance 476.00 ml 4.5 ml -384 ml Results/Medications Result Diagram: 02/22/17 0430 02/22/17 0430 Results 24 hrs Laboratory Tests Test 02/21/17 10:16 02/21/17 11:49 02/21/17 18:02 02/21/17 23:40 Hemoglobin 8.0 L Hematocrit 24.2 L Bedside Glucose 107 95 114 Test 02/22/17 04:30 02/22/17 05:25 White Blood Count 9.2 # Red Blood Count 2.44 L Hemoglobin 7.9 L Hematocrit 24.2 L Mean Corpuscular Volume 99.2 Mean Corpuscular Hemoglobin 32.4 Mean Corpuscular Hemoglobin Concent 32.6 Red Cell Distribution Width 16.9 H Platelet Count 94 #L Mean Platelet Volume 11.4 H Neutrophils % 79.3 H Lymphocytes % 8.8 L Monocytes % 8.5 Eosinophils % 1.7 Basophils % 0.1 Nucleated Red Blood Cells % 0.0 Neutrophils # 7.3 Lymphocytes # 0.8 Monocytes # 0.8 Eosinophils # 0.2 Basophils # 0.0 Nucleated Red Blood Cells # 0.0 Sodium Level 144 Potassium Level 4.2 Chloride Level 112 H Carbon Dioxide Level 23 Anion Gap 13 Blood Urea Nitrogen 34 H Creatinine 1.77 H Glucose Level 124 Calcium Level 7.9 L Bedside Glucose 109 Medications Current Medications Fentanyl (Sublimaze) 25 mcg Q10M PRN IV SEDATION; Start 02/14/17 at 12:30 Ondansetron HCl (Zofran Inj) 4 mg Q6H PRN IV NAUSEA AND/OR VOMITING; Start 02/14 at 16:00 Morphine Sulfate (morphine) 2 mg Q4H PRN IV SEVERE PAIN LEVEL 7-10 Last administered on 02/21/17 19:35; Admin Dose 2 MG; Start 02/14/17 at 16:00 Pantoprazole 40 mg 40 mg DAILY@06 IV Last administered on 02/22/17 05:10; Admin Dose 40 MG; Start 02/15/17 at 06:00 Amiodarone HCl/ Dextrose (Cordarone Iv/ D5W) 500 ml @ 0 mls/hr Q0M IV Last administered on 02/14/17 17:51; Admin Dose 33.3 MLS/HR; Start 02/14/17 at 17:00; Status Future Hold Acetaminophen (Tylenol Supp) 650 mg Q4H PRN [place] TEMP > 37C; Start 02/14/17 at 18: 00 Acetaminophen (Tylenol Liquid) 650 mg Q4H PRN PO TEMP > 37C Last administered on 02/21/17 03:16; Admin Dose 650 MG; Start 02/14/17 at 18:00 Eye Lubricant (Akwa Oint) 1 applic Q6 BOTH EYES Last administered on 02/22/17 05:08; Admin Dose 1 APPLIC; Start 02/14/17 at 18:00 Eye Lubricant 2 drop 2 drop Q6 BOTH EYES Last administered on 02/22/17 05:08; Admin Dose 2 DROP; Start 02/14/17 at 18:00 Norepinephrine 16 mg/Dextrose 500 ml @ 0 mls/hr TITRATE IV Last administered on 02/20/17 19:05; Admin Dose 11.25 MLS/HR; Start 02/14/17 at 22:00 Azithromycin 500 mg/Sodium Chloride 250 ml @ 250 mls/hr DAILY IVPB Last administered on 02/21/17 08:38; Admin Dose 250 MLS/HR; Start 02/15/17 at 10:00 Phenylephrine HCl/ Dextrose (Fritz-Syneph/D5W) 500 ml @ 75 mls/hr TITRATE IV ; Start 02/16/17 at 03:30 Miscellaneous Information 1 ea NOTE XX ; Start 02/16/17 at 11:30 Glucose (Glutose) 15 gm Q15M PRN PO DECREASED GLUCOSE; Start 02/16/17 at 11:30 Glucose (Glutose) 22.5 gm Q15M PRN PO DECREASED GLUCOSE; Start 02/16/17 at 11:30 Dextrose (D50w Syringe) 25 ml Q15M PRN IV DECREASED GLUCOSE; Start 02/16/17 at 11:30 Dextrose (D50w Syringe) 50 ml Q15M PRN IV DECREASED GLUCOSE; Start 02/16/17 at 11:30 Glucagon (Glucagen) 1 mg Q15M PRN IM DECREASED GLUCOSE; Start 02/16/17 at 11:30 Glucose 15 gm 15 gm Q15M PRN BUCCAL DECREASED GLUCOSE; Start 02/16/17 at 11:30 Piperacillin Sod/ Tazobactam Sod 50 ml @ 100 mls/hr Q6 IVPB Last administered on 02/22/17 05:09; Admin Dose 100 MLS/HR; Start 02/16/17 at 18:00 Vasopressin 60 unit/Dextrose 60 ml @ 1.8 mls/hr Q12H IV ; Start 02/16/17 at 13: 00 Sodium Chloride (NS) 1,000 ml @ 50 mls/hr Q20H IV Last administered on 02:40; Admin Dose 50 MLS/HR; Start 02/17/17 at 12:00 Aspirin (Aspirin) 81 mg DAILY GTB Last administered on 02/21/17 08:39; Admin Dose 81 MG; Start 02/18/17 at 09:00 Atorvastatin Calcium 20 mg 20 mg HS NGT Last administered on 02/21/17 21:51; Admin Dose 20 MG; Start 02/17/17 at 21:00 Ferric Sodium Gluconate Complex/ Sodium Chloride (Ferrlecit/NS) 110 ml @ 110 mls/hr Q24H IVPB Last administered on 02/21/17 12:16; Admin Dose 110 MLS/HR; Start 02/19/17 at 12:30; Stop 02/23/17 at 13:29 Insulin Aspart (Novolog Insulin Pen) NOVOLOG *MILD* ALGORI... Q6 SC Last administered on 02/20/17 17:54; Admin Dose 1 UNIT; Start 02/20/17 at 00:00 IV Flush (NS 10 ml) 10 ml PRN PRN IV IV PROTOCOL; Start 02/20/17 at 16:00 Lorazepam 1 mg 1 mg Q6H PRN IV AGITATION/ANXIETY Last administered on 23:26; Admin Dose 1 MG; Start 02/20/17 at 21:40 Vancomycin HCl 750 mg/Sodium Chloride 150 ml @ 75 mls/hr Q24H IVPB Last administered on 02/21/17 11:43; Admin Dose 75 MLS/HR; Start 02/21/17 at 12:00 Propofol (Diprivan) 100 ml @ 2.07 mls/hr Q12H IV Last administered on 03:41; Admin Dose 2.07 MLS/HR; Start 02/22/17 at 04:00 Assessment/Plan Chief Complaint/Hosp Course 1. Nonoliguric acute kidney injury with previous baseline creatinine 0.8 mg/dL. -Etiology of CROW secondary to ATN due to ischemic hypoperfusion shock. -Urinalysis was reviewed evidence of proteinuria no evidence of active sediment -Renal function is fluctuating but overall stable -Continue current treatment plan, keep map greater than 65, continue gentle hydration -Continue supportive care, renally dose all meds, avoid nephrotoxic 2. Anemia. -Monitor H&H levels -drifting down 3. Mineral bone disorder -Monitor calcium phosphorus levels -Replace phosphorus 4. Hypokalemia -Improved. continue to monitor 5. Volume overload -Patient's chest x-ray shows pulmonary congestion. -Patient is positive total fluids. -We will continue to defer diuretic therapy in the setting of shock. 6. Cardiac arrest. Patient status post hypothermia protocol -Follow-up with cardiology 7. Ventilator dependent respiratory failure -Vent settings ABGs reviewed -Follow-up with pulmonary 8. Pneumothorax -Status post chest tube placement, continue to monitor 9. Septic shock -Cultures positive for bacteremia -Continue antibiotic regimen, wean off pressors if possible -Follow-up with ID -Monitor closely 10. Mild hyponatremia Problems: MONTEZ ELIZALDE MD Feb 22, 2017 07:15
--- NOTE | 2017-02-22 08:38 | PN ---
Date/Time of Note Date/Time of Note DATE: 02/22/17 TIME: 08:36 Assessment/Plan VTE Prophylaxis VTE Prophylaxis Intervention: SCD's VTE Contraindication Reason: bleeding Lines/Catheters IV Catheter Type (from Nrsg): PICC Line Central line still needed: Yes Urinary Cath still in place: Yes Reason Cath still needed: other (indicate) (intubated and sedated) Assessment/Plan Assessment/Plan 76 yo M round by paramedics on the ground next to a park bench unresponsive in [place] with the followin. S/p Cardiac arrest secondary to V-fib status post ACLS with defibrillation and return of circulation -Status post hypothermia protocol / Cardiology following / patient did not meet criteria for emergent cardiac catheterization per book critic on-call on arrival 2. Vent dependent resp failure secondary to cardiac arrest, now complicated by Pneumonia / pneumothorax and Rib fractures -Continue vent management / Pulmonology consultation appreciated 3. L sided Rib fractures and Pneumothorax secondary to repeated chest compressions - status post chest tube placement / Pulm managing 4. Sepsis with bilateral Pneumonia likely with a component of aspiration / Coagulase neg bacteremia / UTI - Currently on Vanc / Zosyn / will deescalate abx based on cultures 5. Acute on Chronic Normocytic anemia with thrombocytopenia likely 2/2 Iron deficiency -Chronic Anemia is likely worsened by blood loss, which is likely precipitated by per thrombocytopenia -Transfuse PRBC again today and add platelets in view of active bleeding / Continue IV iron 6. Acute kidney disease on CKD secondary to cardiac arrest -Creatinine has been stable for the past few days / Continue to avoid Nephrotoxic meds / Renally dose all meds / Serial labs. 7. Reactive Hyperglycemia -Normal BG levels on regular tube feeds / d/c SSI 8. Acute encephalopathy 2/2 #1 : Patient gets agitated off sedation / remains sedated Prophylaxis: SCDs CRITICAL CARE TIME: >35 mins Subjective 24 Hr Interval Summary Free Text/Dictation Patient seen and examined. Nurses report bloody aspirate when suctioned via ET tube Also bloody fluid in underwater seal from chest tube Subjective hx not possible: pt non-verbal, pt critical status Exam/Review of Systems Vital Signs Vitals Vital Signs Date Time Temp Pulse Resp B/P Pulse Ox O2 Delivery O2 Flow Rate FiO2 02/22/17 06:15 67 25 91/61 99 Mechanical Ventilator 02/22/17 04:55 30 02/22/17 04:00 99.1 Intake and Output 02/21/17 02/21/17 02/22/17 15:00 23:00 07:00 Intake Total 925.00 ml 832.5 ml 336 ml Output Total 449 ml 828 ml 720 ml Balance 476.00 ml 4.5 ml -384 ml Exam General: The patient is intubated, responds to pain stimuli, open his eyes with verbal stimuli HEENT: Atraumatic, normocephalic. The pupils are equal Neck: Supple Chest: Chest tube in left axillary region with bloody drainage Lungs: Decreased breath sounds bilateral lower lung field L>R Heart: Normal S1-S2, Regular rhythm and rate. Abdomen: Soft , nontender, nondistended , bowel sounds are present. Extremities: Normal to inspection, trace edema no cyanosis Neurologic: Patient responds minimally to verbal stimuli and opens his eyes, and responds to sternal rub Results Result Diagram: 02/22/17 0430 02/22/17 0430 Results 24 hrs Laboratory Tests Test 02/21/17 10:16 02/21/17 11:49 02/21/17 18:02 02/21/17 23:40 Hemoglobin 8.0 L Hematocrit 24.2 L Bedside Glucose 107 95 114 Test 02/22/17 04:30 02/22/17 05:25 White Blood Count 9.2 # Red Blood Count 2.44 L Hemoglobin 7.9 L Hematocrit 24.2 L Mean Corpuscular Volume 99.2 Mean Corpuscular Hemoglobin 32.4 Mean Corpuscular Hemoglobin Concent 32.6 Red Cell Distribution Width 16.9 H Platelet Count 94 #L Mean Platelet Volume 11.4 H Neutrophils % 79.3 H Lymphocytes % 8.8 L Monocytes % 8.5 Eosinophils % 1.7 Basophils % 0.1 Nucleated Red Blood Cells % 0.0 Neutrophils # 7.3 Lymphocytes # 0.8 Monocytes # 0.8 Eosinophils # 0.2 Basophils # 0.0 Nucleated Red Blood Cells # 0.0 Sodium Level 144 Potassium Level 4.2 Chloride Level 112 H Carbon Dioxide Level 23 Anion Gap 13 Blood Urea Nitrogen 34 H Creatinine 1.77 H Glucose Level 124 Calcium Level 7.9 L Bedside Glucose 109 Medications Medications Current Medications Fentanyl (Sublimaze) 25 mcg Q10M PRN IV SEDATION; Start 02/14/17 at 12:30 Ondansetron HCl (Zofran Inj) 4 mg Q6H PRN IV NAUSEA AND/OR VOMITING; Start 02/14 at 16:00 Morphine Sulfate (morphine) 2 mg Q4H PRN IV SEVERE PAIN LEVEL 7-10 Last administered on 02/21/17 19:35; Admin Dose 2 MG; Start 02/14/17 at 16:00 Pantoprazole 40 mg 40 mg DAILY@06 IV Last administered on 02/22/17 05:10; Admin Dose 40 MG; Start 02/15/17 at 06:00 Amiodarone HCl/ Dextrose (Cordarone Iv/ D5W) 500 ml @ 0 mls/hr Q0M IV Last administered on 02/14/17 17:51; Admin Dose 33.3 MLS/HR; Start 02/14/17 at 17:00; Status Future Hold Acetaminophen (Tylenol Supp) 650 mg Q4H PRN [place] TEMP > 37C; Start 02/14/17 at 18: 00 Acetaminophen (Tylenol Liquid) 650 mg Q4H PRN [place] TEMP > 37C Last administered on 02/21/17 03:16; Admin Dose 650 MG; Start 02/14/17 at 18:00 Eye Lubricant (Akwa Oint) 1 applic Q6 BOTH EYES Last administered on 02/22/17 05:08; Admin Dose 1 APPLIC; Start 02/14/17 at 18:00 Eye Lubricant 2 drop 2 drop Q6 BOTH EYES Last administered on 02/22/17 05:08; Admin Dose 2 DROP; Start 02/14/17 at 18:00 Norepinephrine 16 mg/Dextrose 500 ml @ 0 mls/hr TITRATE IV Last administered on 02/20/17 19:05; Admin Dose 11.25 MLS/HR; Start 02/14/17 at 22:00 Azithromycin 500 mg/Sodium Chloride 250 ml @ 250 mls/hr DAILY IVPB Last administered on 02/21/17 08:38; Admin Dose 250 MLS/HR; Start 02/15/17 at 10:00 Phenylephrine HCl/ Dextrose (Fritz-Syneph/D5W) 500 ml @ 75 mls/hr TITRATE IV ; Start 02/16/17 at 03:30 Miscellaneous Information 1 ea NOTE XX ; Start 02/16/17 at 11:30 Glucose (Glutose) 15 gm Q15M PRN PO DECREASED GLUCOSE; Start 02/16/17 at 11:30 Glucose (Glutose) 22.5 gm Q15M PRN PO DECREASED GLUCOSE; Start 02/16/17 at 11:30 Dextrose (D50w Syringe) 25 ml Q15M PRN IV DECREASED GLUCOSE; Start 02/16/17 at 11:30 Dextrose (D50w Syringe) 50 ml Q15M PRN IV DECREASED GLUCOSE; Start 02/16/17 at 11:30 Glucagon (Glucagen) 1 mg Q15M PRN IM DECREASED GLUCOSE; Start 02/16/17 at 11:30 Glucose 15 gm 15 gm Q15M PRN BUCCAL DECREASED GLUCOSE; Start 02/16/17 at 11:30 Piperacillin Sod/ Tazobactam Sod 50 ml @ 100 mls/hr Q6 IVPB Last administered on 02/22/17 05:09; Admin Dose 100 MLS/HR; Start 02/16/17 at 18:00 Vasopressin 60 unit/Dextrose 60 ml @ 1.8 mls/hr Q12H IV ; Start 02/16/17 at 13: 00 Sodium Chloride (NS) 1,000 ml @ 50 mls/hr Q20H IV Last administered on 02:40; Admin Dose 50 MLS/HR; Start 02/17/17 at 12:00 Aspirin (Aspirin) 81 mg DAILY GTB Last administered on 02/21/17 08:39; Admin Dose 81 MG; Start 02/18/17 at 09:00 Atorvastatin Calcium 20 mg 20 mg HS NGT Last administered on 02/21/17 21:51; Admin Dose 20 MG; Start 02/17/17 at 21:00 Ferric Sodium Gluconate Complex/ Sodium Chloride (Ferrlecit/NS) 110 ml @ 110 mls/hr Q24H IVPB Last administered on 02/21/17 12:16; Admin Dose 110 MLS/HR; Start 02/19/17 at 12:30; Stop 02/23/17 at 13:29 Insulin Aspart (Novolog Insulin Pen) NOVOLOG *MILD* ALGORI... Q6 SC Last administered on 02/20/17 17:54; Admin Dose 1 UNIT; Start 02/20/17 at 00:00 IV Flush (NS 10 ml) 10 ml PRN PRN IV IV PROTOCOL; Start 02/20/17 at 16:00 Lorazepam 1 mg 1 mg Q6H PRN IV AGITATION/ANXIETY Last administered on 23:26; Admin Dose 1 MG; Start 02/20/17 at 21:40 Vancomycin HCl 750 mg/Sodium Chloride 150 ml @ 75 mls/hr Q24H IVPB Last administered on 02/21/17 11:43; Admin Dose 75 MLS/HR; Start 02/21/17 at 12:00 Propofol (Diprivan) 100 ml @ 2.07 mls/hr Q12H IV Last administered on 03:41; Admin Dose 2.07 MLS/HR; Start 02/22/17 at 04:00 Procedures Procedures PROCEDURE: XR Chest 1 view. CLINICAL INDICATION: Shortness of breath TECHNIQUE: AP views of the chest was obtained. COMPARISON: Yesterday FINDINGS: The heart is large. Calcified atherosclerosis is noted in the aorta. Endotracheal and nasogastric tubes are stable. Tip of the nasogastric tube is seen at the level of the gastroesophageal junction. Lungs are hyperexpanded. Interstitial prominence in both lungs is unchanged. Patchy infiltrates throughout the right lung and in the left lower lobe are stable. Small pleural effusions are unchanged. Left chest tube is stable. No pneumothorax as visualized. Left-sided rib fractures are stable. IMPRESSION: Cardiomegaly with calcified atherosclerosis in the aorta. Nasogastric tube with its tip at the level of the gastroesophageal junction. Advancement by approximately 9 cm is advised. Stable hyperexpanded lungs with diffuse interstitial prominence in both lungs. Stable patchy infiltrates throughout the right lung and in the left lower lobe, combined with small pleural effusions. Stable left chest tube. No visualized pneumothorax. Stable left rib fractures. RPTAT: AA .Maurizio Orozco MD, MD Date Time Electronically viewed and signed by .Maurizio Orozco MD, MD on 02/22/2017 09:33 .P/ CC: CAS LIMA [facility], [facility] V[facility]A MADRID Feb 22, 2017 08:37 VILLA MADRID Feb 22, 2017 08:37
[2017-02-22] MEDS: ASPIRIN 81 MG TAB GTB SCH (09:10)
[2017-02-22] MEDS: AZITHROMYCIN 500 MG in SOD CHLORIDE 0.9% 250 ML IVPB SCH (09:11)
--- NOTE | 2017-02-22 09:33 | RADRPT ---
PROCEDURE: XR Chest 1 view. CLINICAL INDICATION: Shortness of breath TECHNIQUE: AP views of the chest was obtained. COMPARISON: Yesterday FINDINGS: The heart is large. Calcified atherosclerosis is noted in the aorta. Endotracheal and nasogastric t ubes are stable. Tip of the nasogastric tube is seen at the level of the gastroesophageal junction. Lungs are hyperexpanded. Interstitial prominence in both lungs is unchanged. Patchy infiltrates throughout the right lung and in the left lower lobe are stable. Small pleural effusions are unchan ged. Left chest tube is stable. No pneumothorax as visualized. Left-sided rib fractures are stabl e. IMPRESSION: Cardiomegaly with calcified atherosclerosis in the aorta. Nasogastric tube with its tip at the level of the gastroesophageal junction. Advancement by approxi mately 9 cm is advised. Stable hyperexpanded lungs with diffuse interstitial prominence in both lungs. Stable patchy infiltrates throughout the right lung and in the left lower lobe, combined with small pleural effusions. Stable left chest tube. No visualized pneumothorax. Stable left rib fractures. RPTAT: AA .Maurizio Orozco MD, Date Time Electronically viewed and signed by .Maurizio Orozco MD, on 02/22/2017 09:33 .P/
--- NOTE | 2017-02-22 10:09 | PN ---
Date/Time of Note Date/Time of Note DATE: 02/22/17 TIME: 10:08 Assessment/Plan VTE Prophylaxis VTE Prophylaxis Intervention: SCD's Lines/Catheters IV Catheter Type (from Nrs): PICC Line Central line still needed: Yes Urinary Cath still in place: Yes Reason Cath still needed: urinary retention Assessment/Plan Assessment/Plan Cardiopulmonary arrest Septic shock Vent dependent respiratory failure Cardiomyopathy with ejection fraction 20% Non-ST elevation CO Acute kidney injury Acute blood loss anemia -Patient status post hypothermia protocol. Continue aspirin and statin therapy, no beta-naida given hypotension as well as BERTHA inhibitor given acute kidney injury. Subjective 24 Hr Interval Summary Free Text/Dictation The patient with no change Exam/Review of Systems Vital Signs Vitals Vital Signs Date Time Temp Pulse Resp B/P Pulse Ox O2 Delivery O2 Flow Rate FiO2 02/22/17 09:15 82 36 133/71 96 Mechanical Ventilator 02/22/17 08:00 98.8 02/22/17 04:55 30 Intake and Output 02/21/17 02/21/17 02/22/17 15:00 23:00 07:00 Intake Total 925.00 ml 832.5 ml 336 ml Output Total 449 ml 828 ml 720 ml Balance 476.00 ml 4.5 ml -384 ml Results Result Diagram: 02/22/17 0430 02/22/17 0430 Results 24 hrs Laboratory Tests Test 02/21/17 10:16 02/21/17 11:49 02/21/17 18:02 02/21/17 23:40 Hemoglobin 8.0 L Hematocrit 24.2 L Bedside Glucose 107 95 114 Test 02/22/17 04:30 02/22/17 05:25 White Blood Count 9.2 # Red Blood Count 2.44 L Hemoglobin 7.9 L Hematocrit 24.2 L Mean Corpuscular Volume 99.2 Mean Corpuscular Hemoglobin 32.4 Mean Corpuscular Hemoglobin Concent 32.6 Red Cell Distribution Width 16.9 H Platelet Count 94 #L Mean Platelet Volume 11.4 H Neutrophils % 79.3 H Lymphocytes % 8.8 L Monocytes % 8.5 Eosinophils % 1.7 Basophils % 0.1 Nucleated Red Blood Cells % 0.0 Neutrophils # 7.3 Lymphocytes # 0.8 Monocytes # 0.8 Eosinophils # 0.2 Basophils # 0.0 Nucleated Red Blood Cells # 0.0 Sodium Level 144 Potassium Level 4.2 Chloride Level 112 H Carbon Dioxide Level 23 Anion Gap 13 Blood Urea Nitrogen 34 H Creatinine 1.77 H Glucose Level 124 Calcium Level 7.9 L Bedside Glucose 109 Medications Medications Current Medications Fentanyl (Sublimaze) 25 mcg Q10M PRN IV SEDATION; Start 02/14/17 at 12:30 Ondansetron HCl (Zofran Inj) 4 mg Q6H PRN IV NAUSEA AND/OR VOMITING; Start 02/14 at 16:00 Morphine Sulfate (morphine) 2 mg Q4H PRN IV SEVERE PAIN LEVEL 7-10 Last administered on 02/21/17 19:35; Admin Dose 2 MG; Start 02/14/17 at 16:00 Pantoprazole 40 mg 40 mg DAILY@06 IV Last administered on 02/22/17 05:10; Admin Dose 40 MG; Start 02/15/17 at 06:00 Amiodarone HCl/ Dextrose (Cordarone Iv/ D5W) 500 ml @ 0 mls/hr Q0M IV Last administered on 02/14/17 17:51; Admin Dose 33.3 MLS/HR; Start 02/14/17 at 17:00; Status Future Hold Acetaminophen (Tylenol Supp) 650 mg Q4H PRN [place] TEMP > 37C; Start 02/14/17 at 18: 00 Acetaminophen (Tylenol Liquid) 650 mg Q4H PRN PO TEMP > 37C Last administered on 02/21/17 03:16; Admin Dose 650 MG; Start 02/14/17 at 18:00 Eye Lubricant (Akwa Oint) 1 applic Q6 BOTH EYES Last administered on 02/22/17 05:08; Admin Dose 1 APPLIC; Start 02/14/17 at 18:00 Eye Lubricant 2 drop 2 drop Q6 BOTH EYES Last administered on 02/22/17 05:08; Admin Dose 2 DROP; Start 02/14/17 at 18:00 Norepinephrine 16 mg/Dextrose 500 ml @ 0 mls/hr TITRATE IV Last administered on 02/20/17 19:05; Admin Dose 11.25 MLS/HR; Start 02/14/17 at 22:00 Azithromycin 500 mg/Sodium Chloride 250 ml @ 250 mls/hr DAILY IVPB Last administered on 02/22/17 09:11; Admin Dose 250 MLS/HR; Start 02/15/17 at 10:00 Phenylephrine HCl/ Dextrose (Fritz-Syneph/D5W) 500 ml @ 75 mls/hr TITRATE IV ; Start 02/16/17 at 03:30 Miscellaneous Information 1 ea NOTE XX ; Start 02/16/17 at 11:30 Glucose (Glutose) 15 gm Q15M PRN PO DECREASED GLUCOSE; Start 02/16/17 at 11:30 Glucose (Glutose) 22.5 gm Q15M PRN PO DECREASED GLUCOSE; Start 02/16/17 at 11:30 Dextrose (D50w Syringe) 25 ml Q15M PRN IV DECREASED GLUCOSE; Start 02/16/17 at 11:30 Dextrose (D50w Syringe) 50 ml Q15M PRN IV DECREASED GLUCOSE; Start 02/16/17 at 11:30 Glucagon (Glucagen) 1 mg Q15M PRN IM DECREASED GLUCOSE; Start 02/16/17 at 11:30 Glucose 15 gm 15 gm Q15M PRN BUCCAL DECREASED GLUCOSE; Start 02/16/17 at 11:30 Piperacillin Sod/ Tazobactam Sod 50 ml @ 100 mls/hr Q6 IVPB Last administered on 02/22/17 05:09; Admin Dose 100 MLS/HR; Start 02/16/17 at 18:00 Vasopressin 60 unit/Dextrose 60 ml @ 1.8 mls/hr Q12H IV ; Start 02/16/17 at 13: 00 Sodium Chloride (NS) 1,000 ml @ 50 mls/hr Q20H IV Last administered on 02:40; Admin Dose 50 MLS/HR; Start 02/17/17 at 12:00 Aspirin (Aspirin) 81 mg DAILY GTB Last administered on 02/22/17 09:10; Admin Dose 81 MG; Start 02/18/17 at 09:00 Atorvastatin Calcium 20 mg 20 mg HS NGT Last administered on 02/21/17 21:51; Admin Dose 20 MG; Start 02/17/17 at 21:00 Ferric Sodium Gluconate Complex/ Sodium Chloride (Ferrlecit/NS) 110 ml @ 110 mls/hr Q24H IVPB Last administered on 02/21/17 12:16; Admin Dose 110 MLS/HR; Start 02/19/17 at 12:30; Stop 02/23/17 at 13:29 Insulin Aspart (Novolog Insulin Pen) NOVOLOG *MILD* ALGORI... Q6 SC Last administered on 02/20/17 17:54; Admin Dose 1 UNIT; Start 02/20/17 at 00:00 IV Flush (NS 10 ml) 10 ml PRN PRN IV IV PROTOCOL; Start 02/20/17 at 16:00 Lorazepam 1 mg 1 mg Q6H PRN IV AGITATION/ANXIETY Last administered on 23:26; Admin Dose 1 MG; Start 02/20/17 at 21:40 Vancomycin HCl 750 mg/Sodium Chloride 150 ml @ 75 mls/hr Q24H IVPB Last administered on 02/21/17 11:43; Admin Dose 75 MLS/HR; Start 02/21/17 at 12:00 Propofol (Diprivan) 100 ml @ 2.07 mls/hr Q12H IV Last administered on 03:41; Admin Dose 2.07 MLS/HR; Start 02/22/17 at 04:00 PRISCILA GANDARA MD Feb 22, 2017 10:09
[2017-02-22] MEDS: FENTAnyl (DRIP) 1000 mcg/100mL 100 ML IV SCH (10:47)
--- NOTE | 2017-02-22 11:33 | CONS ---
Date/Time of Note Date/Time of Note DATE: 02/22/17 TIME: 11:31 Consult Date/Type/Reason Admit Date/Time Feb 14, 2017 at 16:02 Type of Consultation: Pulmonary Subjective Patient remains agitated off sedation. Not opening eyes or following commands. Tachypnea with moderate secretions. Objective Vital Signs Date Time Temp Pulse Resp B/P Pulse Ox O2 Delivery O2 Flow Rate FiO2 02/22/17 09:20 74 26 94 30 02/22/17 09:15 133/71 Mechanical Ventilator 02/22/17 08:00 98.8 Intake and Output 02/21/17 02/21/17 02/22/17 15:00 23:00 07:00 Intake Total 925.00 ml 832.5 ml 336 ml Output Total 449 ml 828 ml 720 ml Balance 476.00 ml 4.5 ml -384 ml Exam PHYSICAL EXAMINATION GENERAL: Elderly gentleman, intubated on mechanical ventilation, VITAL SIGNS: see below. HEENT: Pupils equal, round, and reactive to light. CARDIAC: S1, S2, 1/6 systolic ejection murmur CHEST: Diminished air entry bilaterally. ABDOMEN: Mildly distended. Bowel sounds present no guarding or rebound EXTREMITIES: No cyanosis, clubbing edema +1 NEUROLOGIC: Generalized weakness Results/Medications Result Diagram: 02/22/17 0430 02/22/17 0430 Results 24 hrs Laboratory Tests Test 02/21/17 11:49 02/21/17 18:02 02/21/17 23:40 02/22/17 04:30 Bedside Glucose 107 95 114 White Blood Count 9.2 # Red Blood Count 2.44 L Hemoglobin 7.9 L Hematocrit 24.2 L Mean Corpuscular Volume 99.2 Mean Corpuscular Hemoglobin 32.4 Mean Corpuscular Hemoglobin Concent 32.6 Red Cell Distribution Width 16.9 H Platelet Count 94 #L Mean Platelet Volume 11.4 H Neutrophils % 79.3 H Lymphocytes % 8.8 L Monocytes % 8.5 Eosinophils % 1.7 Basophils % 0.1 Nucleated Red Blood Cells % 0.0 Neutrophils # 7.3 Lymphocytes # 0.8 Monocytes # 0.8 Eosinophils # 0.2 Basophils # 0.0 Nucleated Red Blood Cells # 0.0 Sodium Level 144 Potassium Level 4.2 Chloride Level 112 H Carbon Dioxide Level 23 Anion Gap 13 Blood Urea Nitrogen 34 H Creatinine 1.77 H Glucose Level 124 Calcium Level 7.9 L Test 02/22/17 05:25 Bedside Glucose 109 Medications Current Medications Fentanyl (Sublimaze) 25 mcg Q10M PRN IV SEDATION; Start 02/14/17 at 12:30 Ondansetron HCl (Zofran Inj) 4 mg Q6H PRN IV NAUSEA AND/OR VOMITING; Start 02/14 at 16:00 Morphine Sulfate (morphine) 2 mg Q4H PRN IV SEVERE PAIN LEVEL 7-10 Last administered on 02/21/17 19:35; Admin Dose 2 MG; Start 02/14/17 at 16:00 Pantoprazole 40 mg 40 mg DAILY@06 IV Last administered on 02/22/17 05:10; Admin Dose 40 MG; Start 02/15/17 at 06:00 Amiodarone HCl/ Dextrose (Cordarone Iv/ D5W) 500 ml @ 0 mls/hr Q0M IV Last administered on 02/14/17 17:51; Admin Dose 33.3 MLS/HR; Start 02/14/17 at 17:00; Status Future Hold Acetaminophen (Tylenol Supp) 650 mg Q4H PRN [place] TEMP > 37C; Start 02/14/17 at 18: 00 Acetaminophen (Tylenol Liquid) 650 mg Q4H PRN PO TEMP > 37C Last administered on 02/21/17 03:16; Admin Dose 650 MG; Start 02/14/17 at 18:00 Eye Lubricant (Akwa Oint) 1 applic Q6 BOTH EYES Last administered on 02/22/17 05:08; Admin Dose 1 APPLIC; Start 02/14/17 at 18:00 Eye Lubricant 2 drop 2 drop Q6 BOTH EYES Last administered on 02/22/17 05:08; Admin Dose 2 DROP; Start 02/14/17 at 18:00 Norepinephrine 16 mg/Dextrose 500 ml @ 0 mls/hr TITRATE IV Last administered on 02/20/17 19:05; Admin Dose 11.25 MLS/HR; Start 02/14/17 at 22:00 Azithromycin 500 mg/Sodium Chloride 250 ml @ 250 mls/hr DAILY IVPB Last administered on 02/22/17 09:11; Admin Dose 250 MLS/HR; Start 02/15/17 at 10:00 Phenylephrine HCl/ Dextrose (Fritz-Syneph/D5W) 500 ml @ 75 mls/hr TITRATE IV ; Start 02/16/17 at 03:30 Miscellaneous Information 1 ea NOTE XX ; Start 02/16/17 at 11:30 Glucose (Glutose) 15 gm Q15M PRN PO DECREASED GLUCOSE; Start 02/16/17 at 11:30 Glucose (Glutose) 22.5 gm Q15M PRN PO DECREASED GLUCOSE; Start 02/16/17 at 11:30 Dextrose (D50w Syringe) 25 ml Q15M PRN IV DECREASED GLUCOSE; Start 02/16/17 at 11:30 Dextrose (D50w Syringe) 50 ml Q15M PRN IV DECREASED GLUCOSE; Start 02/16/17 at 11:30 Glucagon (Glucagen) 1 mg Q15M PRN IM DECREASED GLUCOSE; Start 02/16/17 at 11:30 Glucose 15 gm 15 gm Q15M PRN BUCCAL DECREASED GLUCOSE; Start 02/16/17 at 11:30 Piperacillin Sod/ Tazobactam Sod 50 ml @ 100 mls/hr Q6 IVPB Last administered on 02/22/17 05:09; Admin Dose 100 MLS/HR; Start 02/16/17 at 18:00 Vasopressin 60 unit/Dextrose 60 ml @ 1.8 mls/hr Q12H IV ; Start 02/16/17 at 13: 00 Sodium Chloride (NS) 1,000 ml @ 50 mls/hr Q20H IV Last administered on 02:40; Admin Dose 50 MLS/HR; Start 02/17/17 at 12:00 Aspirin (Aspirin) 81 mg DAILY GTB Last administered on 02/22/17 09:10; Admin Dose 81 MG; Start 02/18/17 at 09:00 Atorvastatin Calcium 20 mg 20 mg HS NGT Last administered on 02/21/17 21:51; Admin Dose 20 MG; Start 02/17/17 at 21:00 Ferric Sodium Gluconate Complex/ Sodium Chloride (Ferrlecit/NS) 110 ml @ 110 mls/hr Q24H IVPB Last administered on 02/21/17 12:16; Admin Dose 110 MLS/HR; Start 02/19/17 at 12:30; Stop 02/23/17 at 13:29 Insulin Aspart (Novolog Insulin Pen) NOVOLOG *MILD* ALGORI... Q6 SC Last administered on 02/20/17 17:54; Admin Dose 1 UNIT; Start 02/20/17 at 00:00 IV Flush (NS 10 ml) 10 ml PRN PRN IV IV PROTOCOL; Start 02/20/17 at 16:00 Lorazepam 1 mg 1 mg Q6H PRN IV AGITATION/ANXIETY Last administered on 23:26; Admin Dose 1 MG; Start 02/20/17 at 21:40 Vancomycin HCl 750 mg/Sodium Chloride 150 ml @ 75 mls/hr Q24H IVPB Last administered on 02/21/17 11:43; Admin Dose 75 MLS/HR; Start 02/21/17 at 12:00 Propofol 100 ml @ 2.07 mls/hr Q12H IV Last administered on 02/22/17 10:50; Admin Dose 10.35 MLS/HR; Start 02/22/17 at 04:00 Fentanyl (Sublimaze) 100 ml @ 2.5 mls/hr TITRATE IV Last administered on 10:47; Admin Dose 2.5 MLS/HR; Start 02/22/17 at 11:00 Assessment/Plan Chief Complaint/Hosp Course IMP: 1. Cardiopulmonary Arrest: query primary cardiac event leading to respiratory failure and multilobar aspiration pneumonia 2. Respiratory Failure/Vent 3. Multifocal pneumonia--likely aspiration 4. s/p VF 5. ARF 6. Barotrauma--s/p CPR 7. Hypoglycemia 8. Septic shock secondary to above 9. Encephalopathy rule out anoxic brain injury 10. Anemia questionable GI bleed 11. Thrombocytopenia questionable underlying liver disorder RECS: 1. Hold ventilator weaning 2. Pulmonary toilet 3. Continue tube feeding if tolerated 4. Levophed to MAP > 65 mm Hg; 5. Transfuse 1 unit packed red blood cells 6. Add fentanyl for pain control may help with encephalopathy. Discussed with staff at bedside 40 min cc time Problems: CAS ILMA [facility] Feb 22, 2017 11:32
[2017-02-22 12:03] LABS: INR 1.17; PT RATIO 1.2
[2017-02-22] MEDS: VANCOMYCIN 750 MG in SOD CHLORIDE 0.9% 150 ML IVPB SCH (12:24)
[2017-02-22 13:18] LABS: AADO2 Arterial 98.6 mmHg (7.0-24.0); Allen Test ACCEPTAB; Arterial Base Excess -2.8 mmol/L (-3.0-3); Arterial COHb 0.3 % (0.0-3.0); Arterial Fraction of Oxyhgb 95.6 % (93.0-99.0); Arterial HCO3 19.7 mmol/L (22.0-26.0); Arterial MetHb 0.2 % (0.0-1.5); Arterial Total Hemglobin 8.8 g/dl (12.0-18.0); MODE VENT - AC
[2017-02-22] MEDS: SOD FERRIC GLUC COMPLX 125 MG in SOD CHLORIDE 0.9% 100 ML IVPB SCH (14:46)
[2017-02-22] MEDS: ATORVASTATIN 20 MG TAB NGT SCH (21:36)
[2017-02-23] VITALS (68 sets, daily range): BP systolic 79–144; BP diastolic 57–96; PULSE 61–106; RESP 0–34
[2017-02-23] MEDS: ARTIFICIAL TEARS 15 ML OPH BOTH EYES SCH ×4 (00:52→17:32)
[2017-02-23] MEDS: PIPER-TAZO 2.25 GM (PMX) 50 ML IVPB SCH ×4 (00:52→17:31)
[2017-02-23] MEDS: OCULAR LUBRICANT 3.5 GM OPH OINT BOTH EYES SCH ×4 (00:52→17:32)
[2017-02-23] MEDS: PROPOFOL 100 ML IV SCH ×2 (05:23→16:31)
[2017-02-23] MEDS: PANTOPRAZOLE 40 MG INJ IV SCH (05:24)
[2017-02-23] MEDS: INSULIN ASPART [NOVOLOG] 3 ML PEN SC SCH ×4 (05:25→17:40)
[2017-02-23 05:53] LABS: ADD SCAN DIFF NO
[2017-02-23 06:05] LABS: BASOPHILS % 0.1 % (0.0-2.0); EOSINOPHILS # 0.2 10^3/ul (0.0-0.5); EOSINOPHILS % 1.3 % (0.0-7.0); HEMATOCRIT 26.8 % (42.0-52.0); HEMOGLOBIN 8.9 g/dl (14.0-18.0); LYMPHOCYTES # 0.8 10^3/ul (0.8-2.9); LYMPHOCYTES % 7.2 % (15.0-51.0); MEAN CORPUSCULAR HEMOGLOBIN 32.6 pg (29.0-33.0); MEAN CORPUSCULAR HGB CONC 33.2 g/dl (32.0-37.0); MEAN CORPUSCULAR VOLUME 98.2 fl (82.0-101.0); MEAN PLATELET VOLUME 11.4 fl (7.4-10.4); MONOCYTE # 0.9 10^3/ul (0.3-0.9); MONOCYTES % 7.4 % (0.0-11.0); NEUTROPHIL # 9.5 10^3/ul (1.6-7.5); NEUTROPHILS % 83.3 % (39.0-77.0); PLATELET COUNT 137 10^3/UL (140-415); RED BLOOD COUNT 2.73 10^6/ul (4.70-6.10); RED CELL DISTRIBUTION WIDTH 17.7 % (11.5-14.5); WHITE BLOOD COUNT 11.4 10^3/ul (4.8-10.8)
[2017-02-23 06:13] LABS: CALCIUM 8.4 mg/dl (8.4-10.2); CREATININE 1.68 mg/dl (0.61-1.24); MAGNESIUM 1.9 mg/dl (1.7-2.5); PHOSPHORUS 3.1 mg/dl (2.5-4.9); POTASSIUM 4.2 mmol/L (3.5-5.1)
--- NOTE | 2017-02-23 07:23 | CONS ---
Date/Time of Note Date/Time of Note DATE: 02/23/17 TIME: 07:18 Consult Date/Type/Reason Admit Date/Time Feb 14, 2017 at 16:02 Type of Consultation: neph Subjective This is a 68-year-old male with a past medical history of hypertension dyslipidemia history of chronic back painn who was brought into [facility] emergency room after was found down by paramedics. The patient was unresponsive was in PEA upon arrival in the ED patient was in v fib. ACLS was performed after reports patient has spontaneous return of circulation. The patient was then transferred to intensive care unit where he underwent a code arrest 2-3 more times. The patient underwent hypothermia protocol. Patient also had a chest tube placed due to pneumothorax. Patient followed hypothermia protocol has been able to be arousable. Patient had a previous creatinine of 0.8 mg/dL on 2015. On admission patient had a creatinine 1.25 mg/dL pt. seen and examined in icu. good uop. arousable on vent GENERAL: Elderly gentleman, intubated on mechanical ventilation, VITAL SIGNS: see below. HEENT: Pupils equal, round, and reactive to light. CARDIAC: S1, S2, 1/6 systolic ejection murmur CHEST: Diminished air entry bilaterally. ABDOMEN: Mildly distended. Bowel sounds present no guarding or rebound EXTREMITIES: No cyanosis, clubbing edema +1 NEUROLOGIC: Generalized weakness Objective Vital Signs Date Time Temp Pulse Resp B/P Pulse Ox O2 Delivery O2 Flow Rate FiO2 02/23/17 05:00 77 28 96 30 02/23/17 03:00 85/57 Mechanical Ventilator 02/23/17 00:00 99.6 Intake and Output 02/22/17 02/22/17 02/23/17 15:00 23:00 07:00 Intake Total 1245.68 ml 1012.84 ml 450 ml Output Total 1011 ml 838 ml 939 ml Balance 234.68 ml 174.84 ml -489 ml Results/Medications Result Diagram: 02/23/17 0500 02/23/17 0530 Results 24 hrs Laboratory Tests Test 02/22/17 11:00 02/22/17 12:27 02/22/17 18:29 02/23/17 00:54 Prothrombin Time 15.0 H Prothrombin Time Ratio 1.2 INR International Normalized Ratio 1.17 Activated Partial Thromboplast Time 38.0 H Bedside Glucose 85 88 83 Test 02/23/17 05:00 02/23/17 05:19 02/23/17 05:21 02/23/17 05:30 White Blood Count 11.4 #H Red Blood Count 2.73 L Hemoglobin 8.9 L Hematocrit 26.8 L Mean Corpuscular Volume 98.2 Mean Corpuscular Hemoglobin 32.6 Mean Corpuscular Hemoglobin Concent 33.2 Red Cell Distribution Width 17.7 H Platelet Count 137 #L Mean Platelet Volume 11.4 H Neutrophils % 83.3 H Lymphocytes % 7.2 L Monocytes % 7.4 Eosinophils % 1.3 Basophils % 0.1 Nucleated Red Blood Cells % 0.0 Neutrophils # 9.5 H Lymphocytes # 0.8 Monocytes # 0.9 Eosinophils # 0.2 Basophils # 0.0 Nucleated Red Blood Cells # 0.0 Lab Scanned Report BLOOD TRANSFUSION Bedside Glucose 134 Sodium Level 144 Potassium Level 4.2 Chloride Level 110 Carbon Dioxide Level 26 Anion Gap 12 Blood Urea Nitrogen 33 H Creatinine 1.68 H Glucose Level 116 Calcium Level 8.4 Phosphorus Level 3.1 Magnesium Level 1.9 Medications Current Medications Fentanyl (Sublimaze) 25 mcg Q10M PRN IV SEDATION; Start 02/14/17 at 12:30 Ondansetron HCl (Zofran Inj) 4 mg Q6H PRN IV NAUSEA AND/OR VOMITING; Start 02/14 at 16:00 Morphine Sulfate (morphine) 2 mg Q4H PRN IV SEVERE PAIN LEVEL 7-10 Last administered on 02/21/17 19:35; Admin Dose 2 MG; Start 02/14/17 at 16:00 Pantoprazole 40 mg 40 mg DAILY@06 IV Last administered on 02/23/17 05:24; Admin Dose 40 MG; Start 02/15/17 at 06:00 Amiodarone HCl/ Dextrose (Cordarone Iv/ D5W) 500 ml @ 0 mls/hr Q0M IV Last administered on 02/14/17 17:51; Admin Dose 33.3 MLS/HR; Start 02/14/17 at 17:00; Status Future Hold Acetaminophen (Tylenol Supp) 650 mg Q4H PRN [place] TEMP > 37C; Start 02/14/17 at 18: 00 Acetaminophen (Tylenol Liquid) 650 mg Q4H PRN PO TEMP > 37C Last administered on 02/21/17 03:16; Admin Dose 650 MG; Start 02/14/17 at 18:00 Eye Lubricant (Akwa Oint) 1 applic Q6 BOTH EYES Last administered on 02/23/17 05:24; Admin Dose 1 APPLIC; Start 02/14/17 at 18:00 Eye Lubricant 2 drop 2 drop Q6 BOTH EYES Last administered on 02/23/17 05:24; Admin Dose 2 DROP; Start 02/14/17 at 18:00 Norepinephrine 16 mg/Dextrose 500 ml @ 0 mls/hr TITRATE IV Last administered on 02/20/17 19:05; Admin Dose 11.25 MLS/HR; Start 02/14/17 at 22:00 Azithromycin 500 mg/Sodium Chloride 250 ml @ 250 mls/hr DAILY IVPB Last administered on 02/22/17 09:11; Admin Dose 250 MLS/HR; Start 02/15/17 at 10:00 Phenylephrine HCl/ Dextrose (Fritz-Syneph/D5W) 500 ml @ 75 mls/hr TITRATE IV ; Start 02/16/17 at 03:30 Miscellaneous Information 1 ea NOTE XX ; Start 02/16/17 at 11:30 Glucose (Glutose) 15 gm Q15M PRN PO DECREASED GLUCOSE; Start 02/16/17 at 11:30 Glucose (Glutose) 22.5 gm Q15M PRN PO DECREASED GLUCOSE; Start 02/16/17 at 11:30 Dextrose (D50w Syringe) 25 ml Q15M PRN IV DECREASED GLUCOSE; Start 02/16/17 at 11:30 Dextrose (D50w Syringe) 50 ml Q15M PRN IV DECREASED GLUCOSE; Start 02/16/17 at 11:30 Glucagon (Glucagen) 1 mg Q15M PRN IM DECREASED GLUCOSE; Start 02/16/17 at 11:30 Glucose 15 gm 15 gm Q15M PRN BUCCAL DECREASED GLUCOSE; Start 02/16/17 at 11:30 Piperacillin Sod/ Tazobactam Sod 50 ml @ 100 mls/hr Q6 IVPB Last administered on 02/23/17 05:24; Admin Dose 100 MLS/HR; Start 02/16/17 at 18:00 Vasopressin 60 unit/Dextrose 60 ml @ 1.8 mls/hr Q12H IV ; Start 02/16/17 at 13: 00 Sodium Chloride (NS) 1,000 ml @ 50 mls/hr Q20H IV Last administered on 02:40; Admin Dose 50 MLS/HR; Start 02/17/17 at 12:00 Aspirin (Aspirin) 81 mg DAILY GTB Last administered on 02/22/17 09:10; Admin Dose 81 MG; Start 02/18/17 at 09:00 Atorvastatin Calcium 20 mg 20 mg HS NGT Last administered on 02/22/17 21:36; Admin Dose 20 MG; Start 02/17/17 at 21:00 Ferric Sodium Gluconate Complex/ Sodium Chloride (Ferrlecit/NS) 110 ml @ 110 mls/hr Q24H IVPB Last administered on 02/22/17 14:46; Admin Dose 110 MLS/HR; Start 02/19/17 at 12:30; Stop 02/23/17 at 13:29 Insulin Aspart (Novolog Insulin Pen) NOVOLOG *MILD* ALGORI... Q6 SC Last administered on 02/20/17 17:54; Admin Dose 1 UNIT; Start 02/20/17 at 00:00 IV Flush (NS 10 ml) 10 ml PRN PRN IV IV PROTOCOL; Start 02/20/17 at 16:00 Lorazepam 1 mg 1 mg Q6H PRN IV AGITATION/ANXIETY Last administered on 23:26; Admin Dose 1 MG; Start 02/20/17 at 21:40 Vancomycin HCl 750 mg/Sodium Chloride 150 ml @ 75 mls/hr Q24H IVPB Last administered on 02/22/17 12:24; Admin Dose 75 MLS/HR; Start 02/21/17 at 12:00 Propofol 100 ml @ 2.07 mls/hr Q12H IV Last administered on 02/23/17 05:23; Admin Dose 8.28 MLS/HR; Start 02/22/17 at 04:00 Fentanyl (Sublimaze) 100 ml @ 2.5 mls/hr TITRATE IV Last administered on 10:47; Admin Dose 2.5 MLS/HR; Start 02/22/17 at 11:00 Miscellaneous Information (*Rx Drug Level Order Reminder*) VANCOMYCIN TROUGH AT 1100 ONCE ONCE XX ; Start 02/23/17 at 11:00; Stop 02/23/17 at 11:01 Assessment/Plan Chief Complaint/Hosp Course 1. Nonoliguric acute kidney injury with previous baseline creatinine 0.8 mg/dL. -Etiology of CROW secondary to ATN due to ischemic hypoperfusion shock. -Urinalysis was reviewed evidence of proteinuria no evidence of active sediment -Renal function is slowly improving. -Continue current treatment plan, keep map greater than 65, continue gentle hydration -Continue supportive care, renally dose all meds, avoid nephrotoxic 2. Anemia. -Monitor H&H levels -drifting down. sp prbc. 3. Mineral bone disorder -Monitor calcium phosphorus levels -Replace phosphorus 4. Hypokalemia -Improved. continue to monitor 5. Volume overload -Patient's chest x-ray shows pulmonary congestion. -Patient is positive total fluids. -We will continue to defer diuretic therapy in the setting of shock. 6. Cardiac arrest. Patient status post hypothermia protocol -Follow-up with cardiology 7. Ventilator dependent respiratory failure -Vent settings ABGs reviewed -Follow-up with pulmonary 8. Pneumothorax -Status post chest tube placement, continue to monitor 9. Septic shock -Cultures positive for bacteremia -Continue antibiotic regimen, wean off pressors if possible -Follow-up with ID -Monitor closely 10. Mild hyponatremia Problems: MONTEZ ELIZALDE MD Feb 23, 2017 07:23
[2017-02-23] MEDS: VASOPRESSIN 60 UNIT in DEXTROSE 5% 57 ML IV SCH ×2 (08:49→12:59)
[2017-02-23] MEDS: ASPIRIN 81 MG TAB GTB SCH (09:01)
[2017-02-23] MEDS: AZITHROMYCIN 500 MG in SOD CHLORIDE 0.9% 250 ML IVPB SCH (09:01)
--- NOTE | 2017-02-23 09:50 | RADRPT ---
PROCEDURE: XR Chest 1 view. CLINICAL INDICATION: Shortness of breath TECHNIQUE: AP views of the chest was obtained. COMPARISON: Yesterday FINDINGS: The heart is large. Calcified atherosclerosis is noted in the aorta. Endotracheal tube is stable. Nasogastric tube has its tip at the expected location of the gastroesophageal junction. Left-sided chest tube is stable. No pneumothorax as visualized. Patchy infiltrates throughout both lungs, rig ht greater than left, are grossly stable. Left-sided PICC line is unchanged. The osseous structure s appear stable. Left fourth rib fracture is unchanged. IMPRESSION: Cardiomegaly with calcified atherosclerosis in the aorta. Nasogastric tube that continues to have its tip at the expected location of the gastroesophageal sharon ction. Advancement by approximately 8 cm is advised. Stable left chest tube. No visualized pneumothorax. Stable patchy infiltrates in both lungs, right greater than left. Stable left fourth rib fracture. RPTAT: AA .Maurizio Orozco MD, MD Date Time Electronically viewed and signed by .Maurizio Orozco MD, MD on 02/23/2017 09:50 .P/
--- NOTE | 2017-02-23 10:23 | CONS ---
Date/Time of Note Date/Time of Note DATE: 02/23/17 TIME: 10:21 Consult Date/Type/Reason Admit Date/Time Feb 14, 2017 at 16:02 Type of Consultation: Pulmonary Subjective Patient remains agitated on decrease sedation. Moderate secretions. Continues Levophed fentanyl and propofol. Objective Vital Signs Date Time Temp Pulse Resp B/P Pulse Ox O2 Delivery O2 Flow Rate FiO2 02/23/17 08:44 26 86/63 99 Mechanical Ventilator 02/23/17 08:30 99.4 73 02/23/17 08:00 30 Intake and Output 02/22/17 02/22/17 02/23/17 15:00 23:00 07:00 Intake Total 1245.68 ml 1012.84 ml 450 ml Output Total 1011 ml 838 ml 939 ml Balance 234.68 ml 174.84 ml -489 ml Exam PHYSICAL EXAMINATION GENERAL: Elderly gentleman, intubated on mechanical ventilation, VITAL SIGNS: see below. HEENT: Pupils equal, round, and reactive to light. CARDIAC: S1, S2, 1/6 systolic ejection murmur CHEST: Diminished air entry bilaterally. ABDOMEN: Mildly distended. Bowel sounds present no guarding or rebound EXTREMITIES: No cyanosis, clubbing edema +1 NEUROLOGIC: Generalized weakness Results/Medications Result Diagram: 02/23/17 0500 02/23/17 0530 Results 24 hrs Laboratory Tests Test 02/22/17 11:00 02/22/17 12:27 02/22/17 18:29 02/23/17 00:54 Prothrombin Time 15.0 H Prothrombin Time Ratio 1.2 INR International Normalized Ratio 1.17 Activated Partial Thromboplast Time 38.0 H Bedside Glucose 85 88 83 Test 02/23/17 05:00 02/23/17 05:19 02/23/17 05:21 02/23/17 05:30 White Blood Count 11.4 #H Red Blood Count 2.73 L Hemoglobin 8.9 L Hematocrit 26.8 L Mean Corpuscular Volume 98.2 Mean Corpuscular Hemoglobin 32.6 Mean Corpuscular Hemoglobin Concent 33.2 Red Cell Distribution Width 17.7 H Platelet Count 137 #L Mean Platelet Volume 11.4 H Neutrophils % 83.3 H Lymphocytes % 7.2 L Monocytes % 7.4 Eosinophils % 1.3 Basophils % 0.1 Nucleated Red Blood Cells % 0.0 Neutrophils # 9.5 H Lymphocytes # 0.8 Monocytes # 0.9 Eosinophils # 0.2 Basophils # 0.0 Nucleated Red Blood Cells # 0.0 Lab Scanned Report BLOOD TRANSFUSION Bedside Glucose 134 Sodium Level 144 Potassium Level 4.2 Chloride Level 110 Carbon Dioxide Level 26 Anion Gap 12 Blood Urea Nitrogen 33 H Creatinine 1.68 H Glucose Level 116 Calcium Level 8.4 Phosphorus Level 3.1 Magnesium Level 1.9 Medications Current Medications Fentanyl (Sublimaze) 25 mcg Q10M PRN IV SEDATION; Start 02/14/17 at 12:30 Ondansetron HCl (Zofran Inj) 4 mg Q6H PRN IV NAUSEA AND/OR VOMITING; Start 02/14 at 16:00 Morphine Sulfate (morphine) 2 mg Q4H PRN IV SEVERE PAIN LEVEL 7-10 Last administered on 02/21/17 19:35; Admin Dose 2 MG; Start 02/14/17 at 16:00 Pantoprazole 40 mg 40 mg DAILY@06 IV Last administered on 02/23/17 05:24; Admin Dose 40 MG; Start 02/15/17 at 06:00 Amiodarone HCl/ Dextrose (Cordarone Iv/ D5W) 500 ml @ 0 mls/hr Q0M IV Last administered on 02/14/17 17:51; Admin Dose 33.3 MLS/HR; Start 02/14/17 at 17:00; Status Future Hold Acetaminophen (Tylenol Supp) 650 mg Q4H PRN [place] TEMP > 37C; Start 02/14/17 at 18: 00 Acetaminophen (Tylenol Liquid) 650 mg Q4H PRN PO TEMP > 37C Last administered on 02/21/17 03:16; Admin Dose 650 MG; Start 02/14/17 at 18:00 Eye Lubricant (Akwa Oint) 1 applic Q6 BOTH EYES Last administered on 02/23/17 05:24; Admin Dose 1 APPLIC; Start 02/14/17 at 18:00 Eye Lubricant 2 drop 2 drop Q6 BOTH EYES Last administered on 02/23/17 05:24; Admin Dose 2 DROP; Start 02/14/17 at 18:00 Norepinephrine 16 mg/Dextrose 500 ml @ 0 mls/hr TITRATE IV Last administered on 02/20/17 19:05; Admin Dose 11.25 MLS/HR; Start 02/14/17 at 22:00 Azithromycin 500 mg/Sodium Chloride 250 ml @ 250 mls/hr DAILY IVPB Last administered on 02/23/17 09:01; Admin Dose 250 MLS/HR; Start 02/15/17 at 10:00 Phenylephrine HCl/ Dextrose (Fritz-Syneph/D5W) 500 ml @ 75 mls/hr TITRATE IV ; Start 02/16/17 at 03:30 Miscellaneous Information 1 ea NOTE XX ; Start 02/16/17 at 11:30 Glucose (Glutose) 15 gm Q15M PRN PO DECREASED GLUCOSE; Start 02/16/17 at 11:30 Glucose (Glutose) 22.5 gm Q15M PRN PO DECREASED GLUCOSE; Start 02/16/17 at 11:30 Dextrose (D50w Syringe) 25 ml Q15M PRN IV DECREASED GLUCOSE; Start 02/16/17 at 11:30 Dextrose (D50w Syringe) 50 ml Q15M PRN IV DECREASED GLUCOSE; Start 02/16/17 at 11:30 Glucagon (Glucagen) 1 mg Q15M PRN IM DECREASED GLUCOSE; Start 02/16/17 at 11:30 Glucose 15 gm 15 gm Q15M PRN BUCCAL DECREASED GLUCOSE; Start 02/16/17 at 11:30 Piperacillin Sod/ Tazobactam Sod 50 ml @ 100 mls/hr Q6 IVPB Last administered on 02/23/17 05:24; Admin Dose 100 MLS/HR; Start 02/16/17 at 18:00 Vasopressin/ Dextrose (Vasostrict/D5W) 60 ml @ 1.8 mls/hr Q12H IV ; Start at 13:00 Aspirin (Aspirin) 81 mg DAILY GTB Last administered on 02/23/17 09:01; Admin Dose 81 MG; Start 02/18/17 at 09:00 Atorvastatin Calcium 20 mg 20 mg HS NGT Last administered on 02/22/17 21:36; Admin Dose 20 MG; Start 02/17/17 at 21:00 Ferric Sodium Gluconate Complex/ Sodium Chloride (Ferrlecit/NS) 110 ml @ 110 mls/hr Q24H IVPB Last administered on 02/22/17 14:46; Admin Dose 110 MLS/HR; Start 02/19/17 at 12:30; Stop 02/23/17 at 13:29 Insulin Aspart (Novolog Insulin Pen) NOVOLOG *MILD* ALGORI... Q6 SC Last administered on 02/20/17 17:54; Admin Dose 1 UNIT; Start 02/20/17 at 00:00 IV Flush (NS 10 ml) 10 ml PRN PRN IV IV PROTOCOL; Start 02/20/17 at 16:00 Lorazepam 1 mg 1 mg Q6H PRN IV AGITATION/ANXIETY Last administered on 23:26; Admin Dose 1 MG; Start 02/20/17 at 21:40 Vancomycin HCl 750 mg/Sodium Chloride 150 ml @ 75 mls/hr Q24H IVPB Last administered on 02/22/17 12:24; Admin Dose 75 MLS/HR; Start 02/21/17 at 12:00 Propofol 100 ml @ 2.07 mls/hr Q12H IV Last administered on 02/23/17 05:23; Admin Dose 8.28 MLS/HR; Start 02/22/17 at 04:00 Fentanyl (Sublimaze) 100 ml @ 2.5 mls/hr TITRATE IV Last administered on 10:47; Admin Dose 2.5 MLS/HR; Start 02/22/17 at 11:00 Miscellaneous Information (*Rx Drug Level Order Reminder*) VANCOMYCIN TROUGH AT 1100 ONCE ONCE XX ; Start 02/23/17 at 11:00; Stop 02/23/17 at 11:01 Assessment/Plan Chief Complaint/Hosp Course IMP: 1. Cardiopulmonary Arrest: query primary cardiac event leading to respiratory failure and multilobar aspiration pneumonia 2. Respiratory Failure/Vent 3. Multifocal pneumonia--likely aspiration 4. s/p VF 5. ARF 6. Barotrauma--s/p CPR 7. Hypoglycemia 8. Septic shock secondary to above 9. Encephalopathy possibly toxic metabolic. 10. Anemia questionable GI bleed 11. Thrombocytopenia questionable underlying liver disorder RECS: 1. Unable to wean from mechanical ventilation at present. May require tracheostomy. 2. Pulmonary toilet 3. Continue tube feeding if tolerated 4. Levophed to MAP > 65 mm Hg; 5. Monitor H&H, transfusion packed red blood cells if continues to drop. 6. DVT and GI prophylaxis. 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 40 min cc time Problems: VADGAMA,CAS V. MD, [facility] Feb 23, 2017 10:23
--- NOTE | 2017-02-23 12:39 | CONS ---
Date/Time of Note Date/Time of Note DATE: 02/23/17 TIME: 12:38 Assessment/Plan Assessment/Plan Additional Assessment/Plan Cardiopulmonary arrest Septic shock Vent dependent respiratory failure Cardiomyopathy with ejection fraction 20% Non-ST elevation TX Acute kidney injury Acute blood loss anemia Paroxysmal atrial fibrillation -Patient status post hypothermia protocol. -Continue aspirin and statin therapy, no beta-naida given hypotension as well as BERTHA inhibitor given acute kidney injury. Consultation Date/Type/Reason Admit Date/Time Feb 14, 2017 at 16:02 Type of Consultation: cv 24 HR Interval Summary Free Text/Dictation Patient seen and examined, remains on low-dose IV pressor Exam/Review of Systems Vital Signs Vitals Vital Signs Date Time Temp Pulse Resp B/P Pulse Ox O2 Delivery O2 Flow Rate FiO2 02/23/17 11:30 72 26 100 30 02/23/17 10:45 87/63 02/23/17 09:30 Mechanical Ventilator 02/23/17 08:30 99.4 Intake and Output 02/22/17 02/22/17 02/23/17 15:00 23:00 07:00 Intake Total 1245.68 ml 1012.84 ml 450 ml Output Total 1011 ml 838 ml 939 ml Balance 234.68 ml 174.84 ml -489 ml Exam Sedated and intubated, no apparent distress Head: normocephalic ENMT: intubated Respiratory: other (Coarse breath sounds bilaterally, no wheezing) Cardiovascular: irregular rhythm, other (S1-S2 heard) Gastrointestinal: bowel sounds, other (No grimacing with palpation), soft Extremities: other (No edema) Results Result Diagram: 02/23/17 0500 02/23/17 0530 Results 24 hrs Laboratory Tests Test 02/22/17 18:29 02/23/17 00:54 02/23/17 05:00 02/23/17 05:19 Bedside Glucose 88 83 White Blood Count 11.4 #H Red Blood Count 2.73 L Hemoglobin 8.9 L Hematocrit 26.8 L Mean Corpuscular Volume 98.2 Mean Corpuscular Hemoglobin 32.6 Mean Corpuscular Hemoglobin Concent 33.2 Red Cell Distribution Width 17.7 H Platelet Count 137 #L Mean Platelet Volume 11.4 H Neutrophils % 83.3 H Lymphocytes % 7.2 L Monocytes % 7.4 Eosinophils % 1.3 Basophils % 0.1 Nucleated Red Blood Cells % 0.0 Neutrophils # 9.5 H Lymphocytes # 0.8 Monocytes # 0.9 Eosinophils # 0.2 Basophils # 0.0 Nucleated Red Blood Cells # 0.0 Lab Scanned Report BLOOD TRANSFUSION Test 02/23/17 05:21 02/23/17 05:30 02/23/17 11:30 Bedside Glucose 134 Sodium Level 144 Potassium Level 4.2 Chloride Level 110 Carbon Dioxide Level 26 Anion Gap 12 Blood Urea Nitrogen 33 H Creatinine 1.68 H Glucose Level 116 Calcium Level 8.4 Phosphorus Level 3.1 Magnesium Level 1.9 Vancomycin Level Trough 12.5 Medications Medications Current Medications Fentanyl (Sublimaze) 25 mcg Q10M PRN IV SEDATION; Start 02/14/17 at 12:30 Ondansetron HCl (Zofran Inj) 4 mg Q6H PRN IV NAUSEA AND/OR VOMITING; Start 02/14 at 16:00 Morphine Sulfate (morphine) 2 mg Q4H PRN IV SEVERE PAIN LEVEL 7-10 Last administered on 02/21/17 19:35; Admin Dose 2 MG; Start 02/14/17 at 16:00 Pantoprazole 40 mg 40 mg DAILY@06 IV Last administered on 02/23/17 05:24; Admin Dose 40 MG; Start 02/15/17 at 06:00 Amiodarone HCl/ Dextrose (Cordarone Iv/ D5W) 500 ml @ 0 mls/hr Q0M IV Last administered on 02/14/17 17:51; Admin Dose 33.3 MLS/HR; Start 02/14/17 at 17:00; Status Future Hold Acetaminophen (Tylenol Supp) 650 mg Q4H PRN [place] TEMP > 37C; Start 02/14/17 at 18: 00 Acetaminophen (Tylenol Liquid) 650 mg Q4H PRN PO TEMP > 37C Last administered on 02/21/17 03:16; Admin Dose 650 MG; Start 02/14/17 at 18:00 Eye Lubricant (Akwa Oint) 1 applic Q6 BOTH EYES Last administered on 02/23/17 05:24; Admin Dose 1 APPLIC; Start 02/14/17 at 18:00 Eye Lubricant 2 drop 2 drop Q6 BOTH EYES Last administered on 02/23/17 12:21; Admin Dose 2 DROP; Start 02/14/17 at 18:00 Norepinephrine 16 mg/Dextrose 500 ml @ 0 mls/hr TITRATE IV Last administered on 02/20/17 19:05; Admin Dose 11.25 MLS/HR; Start 02/14/17 at 22:00 Azithromycin 500 mg/Sodium Chloride 250 ml @ 250 mls/hr DAILY IVPB Last administered on 02/23/17 09:01; Admin Dose 250 MLS/HR; Start 02/15/17 at 10:00 Phenylephrine HCl/ Dextrose (Fritz-Syneph/D5W) 500 ml @ 75 mls/hr TITRATE IV ; Start 02/16/17 at 03:30 Miscellaneous Information 1 ea NOTE XX ; Start 02/16/17 at 11:30 Glucose (Glutose) 15 gm Q15M PRN PO DECREASED GLUCOSE; Start 02/16/17 at 11:30 Glucose (Glutose) 22.5 gm Q15M PRN PO DECREASED GLUCOSE; Start 02/16/17 at 11:30 Dextrose (D50w Syringe) 25 ml Q15M PRN IV DECREASED GLUCOSE; Start 02/16/17 at 11:30 Dextrose (D50w Syringe) 50 ml Q15M PRN IV DECREASED GLUCOSE; Start 02/16/17 at 11:30 Glucagon (Glucagen) 1 mg Q15M PRN IM DECREASED GLUCOSE; Start 02/16/17 at 11:30 Glucose 15 gm 15 gm Q15M PRN BUCCAL DECREASED GLUCOSE; Start 02/16/17 at 11:30 Piperacillin Sod/ Tazobactam Sod 50 ml @ 100 mls/hr Q6 IVPB Last administered on 02/23/17 12:15; Admin Dose 100 MLS/HR; Start 02/16/17 at 18:00 Vasopressin/ Dextrose (Vasostrict/D5W) 60 ml @ 1.8 mls/hr Q12H IV ; Start at 13:00 Aspirin (Aspirin) 81 mg DAILY GTB Last administered on 02/23/17 09:01; Admin Dose 81 MG; Start 02/18/17 at 09:00 Atorvastatin Calcium 20 mg 20 mg HS NGT Last administered on 02/22/17 21:36; Admin Dose 20 MG; Start 02/17/17 at 21:00 Ferric Sodium Gluconate Complex/ Sodium Chloride (Ferrlecit/NS) 110 ml @ 110 mls/hr Q24H IVPB Last administered on 02/22/17 14:46; Admin Dose 110 MLS/HR; Start 02/19/17 at 12:30; Stop 02/23/17 at 13:29 Insulin Aspart (Novolog Insulin Pen) NOVOLOG *MILD* ALGORI... Q6 SC Last administered on 02/20/17 17:54; Admin Dose 1 UNIT; Start 02/20/17 at 00:00 IV Flush (NS 10 ml) 10 ml PRN PRN IV IV PROTOCOL; Start 02/20/17 at 16:00 Lorazepam 1 mg 1 mg Q6H PRN IV AGITATION/ANXIETY Last administered on 23:26; Admin Dose 1 MG; Start 02/20/17 at 21:40 Vancomycin HCl 750 mg/Sodium Chloride 150 ml @ 75 mls/hr Q24H IVPB Last administered on 02/22/17 12:24; Admin Dose 75 MLS/HR; Start 02/21/17 at 12:00 Propofol 100 ml @ 2.07 mls/hr Q12H IV Last administered on 02/23/17 05:23; Admin Dose 8.28 MLS/HR; Start 02/22/17 at 04:00 Fentanyl (Sublimaze) 100 ml @ 2.5 mls/hr TITRATE IV Last administered on 10:47; Admin Dose 2.5 MLS/HR; Start 02/22/17 at 11:00 Casey Schuler DO Feb 23, 2017 12:39
[2017-02-23] MEDS: FENTAnyl (DRIP) 1000 mcg/100mL 100 ML IV SCH (12:44)
[2017-02-23] MEDS: VANCOMYCIN 750 MG in SOD CHLORIDE 0.9% 150 ML IVPB SCH (12:48)
[2017-02-23] MEDS: SOD FERRIC GLUC COMPLX 125 MG in SOD CHLORIDE 0.9% 100 ML IVPB SCH (12:55)
--- NOTE | 2017-02-23 14:17 | PN ---
Date/Time of Note Date/Time of Note DATE: 02/23/17 TIME: 14:04 Assessment/Plan VTE Prophylaxis VTE Prophylaxis Intervention: SCD's Lines/Catheters IV Catheter Type (from Nrs): PICC Line Central line still needed: Yes Urinary Cath still in place: Yes Reason Cath still needed: other (indicate) Assessment/Plan Assessment/Plan 76 yo M round by paramedics on the ground next to a park bench unresponsive in [place] with the followin. S/p Cardiac arrest secondary to V-fib status post ACLS with defibrillation and return of circulation -Status post hypothermia protocol / Cardiology following / patient did not meet criteria for emergent cardiac catheterization per forensic analyst on-call on arrival 2. Vent dependent resp failure secondary to cardiac arrest, now complicated by Pneumonia / pneumothorax and Rib fractures -Continue vent management / Pulmonology consultation appreciated 3. L sided Rib fractures and Pneumothorax secondary to repeated chest compressions - status post chest tube placement / Pulm managing 4. Sepsis with bilateral Pneumonia likely with a component of aspiration / Coagulase neg bacteremia / UTI - Continue current abx 5. Acute on Chronic Normocytic anemia with thrombocytopenia likely 2/2 Iron deficiency -Chronic Anemia is likely worsened by blood loss, which is likely precipitated by per thrombocytopenia -Transfuse PRBC again today and add platelets in view of active bleeding / Continue IV iron 6. Acute kidney disease on CKD secondary to cardiac arrest -Creatinine has been stable for the past few days / Continue to avoid Nephrotoxic meds / Renally dose all meds / Serial labs. 7. Reactive Hyperglycemia -Normal BG levels on regular tube feeds / d/c SSI 8. Acute encephalopathy 2/2 #1 : Patient gets agitated off sedation / remains sedated Dispo: * Pulmonary recommends family meeting as patient will likely need trach * Patient's encephalopathy should have improved after 8 days, will obtain EEG and MRI brain / neurology eval * Advance NGT per radiology recs / repeat CXR to confirm placement / Continue to hold tube feeds and resume next shift * Continue all supportive care Prophylaxis: SCDs CRITICAL CARE TIME: >35 mins Subjective 24 Hr Interval Summary Free Text/Dictation Patient seen and examined. no new issues, however while being turned, patient seemed to regurgitate some tube feeds, had no residuals however, Nursing held tube feeds prophylactically Intubated and sedated for comfort, with very little pressor support. Said to become quite agitated and aggressive off sedation Subjective hx not possible: pt non-verbal, pt critical status Exam/Review of Systems Vital Signs Vitals Vital Signs Date Time Temp Pulse Resp B/P Pulse Ox O2 Delivery O2 Flow Rate FiO2 02/23/17 12:45 62 89/59 100 02/23/17 12:30 10 02/23/17 12:15 98.7 02/23/17 11:30 30 02/23/17 09:30 Mechanical Ventilator Intake and Output 02/22/17 02/22/17 02/23/17 15:00 23:00 07:00 Intake Total 1245.68 ml 1012.84 ml 450 ml Output Total 1011 ml 838 ml 939 ml Balance 234.68 ml 174.84 ml -489 ml Exam GENERAL: Intubated and comfortably sedated HEENT: JACQUELINE, Intubated, Vent settings noted LUNGS: diffusely diminished and coarse BS HEART: S1, S2. No murmur, gallops or rubs. Tachycardic ABDOMEN: Soft, non distended, Normoactive bowel sounds. GENITOURINARY: Normal male external genitalia with mild scrotal swelling, Patel to bedside drainage EXTREMITIES: Mild 1+ nonpitting edema bilaterally, also some hand edema bilaterally NEUROLOGIC: The patient is currently sedated. SKIN: Otherwise, unremarkable. Results Result Diagram: 02/23/17 0500 02/23/17 0530 Results 24 hrs Laboratory Tests Test 02/22/17 18:29 02/23/17 00:54 02/23/17 05:00 02/23/17 05:19 Bedside Glucose 88 83 White Blood Count 11.4 #H Red Blood Count 2.73 L Hemoglobin 8.9 L Hematocrit 26.8 L Mean Corpuscular Volume 98.2 Mean Corpuscular Hemoglobin 32.6 Mean Corpuscular Hemoglobin Concent 33.2 Red Cell Distribution Width 17.7 H Platelet Count 137 #L Mean Platelet Volume 11.4 H Neutrophils % 83.3 H Lymphocytes % 7.2 L Monocytes % 7.4 Eosinophils % 1.3 Basophils % 0.1 Nucleated Red Blood Cells % 0.0 Neutrophils # 9.5 H Lymphocytes # 0.8 Monocytes # 0.9 Eosinophils # 0.2 Basophils # 0.0 Nucleated Red Blood Cells # 0.0 Lab Scanned Report BLOOD TRANSFUSION Test 02/23/17 05:21 02/23/17 05:30 02/23/17 11:30 02/23/17 12:29 Bedside Glucose 134 87 Sodium Level 144 Potassium Level 4.2 Chloride Level 110 Carbon Dioxide Level 26 Anion Gap 12 Blood Urea Nitrogen 33 H Creatinine 1.68 H Glucose Level 116 Calcium Level 8.4 Phosphorus Level 3.1 Magnesium Level 1.9 Vancomycin Level Trough 12.5 Medications Medications Current Medications Fentanyl (Sublimaze) 25 mcg Q10M PRN IV SEDATION; Start 02/14/17 at 12:30 Ondansetron HCl (Zofran Inj) 4 mg Q6H PRN IV NAUSEA AND/OR VOMITING; Start 02/14 at 16:00 Morphine Sulfate (morphine) 2 mg Q4H PRN IV SEVERE PAIN LEVEL 7-10 Last administered on 02/21/17 19:35; Admin Dose 2 MG; Start 02/14/17 at 16:00 Pantoprazole 40 mg 40 mg DAILY@06 IV Last administered on 02/23/17 05:24; Admin Dose 40 MG; Start 02/15/17 at 06:00 Amiodarone HCl/ Dextrose (Cordarone Iv/ D5W) 500 ml @ 0 mls/hr Q0M IV Last administered on 02/14/17 17:51; Admin Dose 33.3 MLS/HR; Start 02/14/17 at 17:00; Status Future Hold Acetaminophen (Tylenol Supp) 650 mg Q4H PRN [place] TEMP > 37C; Start 02/14/17 at 18: 00 Acetaminophen (Tylenol Liquid) 650 mg Q4H PRN PO TEMP > 37C Last administered on 02/21/17 03:16; Admin Dose 650 MG; Start 02/14/17 at 18:00 Eye Lubricant (Akwa Oint) 1 applic Q6 BOTH EYES Last administered on 02/23/17 13:23; Admin Dose 1 APPLIC; Start 02/14/17 at 18:00 Eye Lubricant 2 drop 2 drop Q6 BOTH EYES Last administered on 02/23/17 12:21; Admin Dose 2 DROP; Start 02/14/17 at 18:00 Norepinephrine 16 mg/Dextrose 500 ml @ 0 mls/hr TITRATE IV Last administered on 02/20/17 19:05; Admin Dose 11.25 MLS/HR; Start 02/14/17 at 22:00 Azithromycin 500 mg/Sodium Chloride 250 ml @ 250 mls/hr DAILY IVPB Last administered on 02/23/17 09:01; Admin Dose 250 MLS/HR; Start 02/15/17 at 10:00 Phenylephrine HCl/ Dextrose (Fritz-Syneph/D5W) 500 ml @ 75 mls/hr TITRATE IV ; Start 02/16/17 at 03:30 Miscellaneous Information 1 ea NOTE XX ; Start 02/16/17 at 11:30 Glucose (Glutose) 15 gm Q15M PRN PO DECREASED GLUCOSE; Start 02/16/17 at 11:30 Glucose (Glutose) 22.5 gm Q15M PRN PO DECREASED GLUCOSE; Start 02/16/17 at 11:30 Dextrose (D50w Syringe) 25 ml Q15M PRN IV DECREASED GLUCOSE; Start 02/16/17 at 11:30 Dextrose (D50w Syringe) 50 ml Q15M PRN IV DECREASED GLUCOSE; Start 02/16/17 at 11:30 Glucagon (Glucagen) 1 mg Q15M PRN IM DECREASED GLUCOSE; Start 02/16/17 at 11:30 Glucose 15 gm 15 gm Q15M PRN BUCCAL DECREASED GLUCOSE; Start 02/16/17 at 11:30 Piperacillin Sod/ Tazobactam Sod 50 ml @ 100 mls/hr Q6 IVPB Last administered on 02/23/17 12:15; Admin Dose 100 MLS/HR; Start 02/16/17 at 18:00 Vasopressin/ Dextrose (Vasostrict/D5W) 60 ml @ 1.8 mls/hr Q12H IV ; Start at 13:00 Aspirin (Aspirin) 81 mg DAILY GTB Last administered on 02/23/17 09:01; Admin Dose 81 MG; Start 02/18/17 at 09:00 Atorvastatin Calcium (Lipitor) 20 mg HS NGT Last administered on 02/22/17 21: 36; Admin Dose 20 MG; Start 02/17/17 at 21:00 Insulin Aspart (Novolog Insulin Pen) NOVOLOG *MILD* ALGORI... Q6 SC Last administered on 02/20/17 17:54; Admin Dose 1 UNIT; Start 02/20/17 at 00:00 IV Flush (NS 10 ml) 10 ml PRN PRN IV IV PROTOCOL; Start 02/20/17 at 16:00 Lorazepam 1 mg 1 mg Q6H PRN IV AGITATION/ANXIETY Last administered on 23:26; Admin Dose 1 MG; Start 02/20/17 at 21:40 Vancomycin HCl 750 mg/Sodium Chloride 150 ml @ 75 mls/hr Q24H IVPB Last administered on 02/23/17 12:48; Admin Dose 75 MLS/HR; Start 02/21/17 at 12:00 Propofol 100 ml @ 2.07 mls/hr Q12H IV Last administered on 02/23/17 05:23; Admin Dose 8.28 MLS/HR; Start 02/22/17 at 04:00 Fentanyl (Sublimaze) 100 ml @ 2.5 mls/hr TITRATE IV Last administered on 12:44; Admin Dose 5 MLS/HR; Start 02/22/17 at 11:00 Procedures Procedures PROCEDURE: XR Chest 1 view. CLINICAL INDICATION: Shortness of breath TECHNIQUE: AP views of the chest was obtained. COMPARISON: Yesterday FINDINGS: The heart is large. Calcified atherosclerosis is noted in the aorta. Endotracheal tube is stable. Nasogastric tube has its tip at the expected location of the gastroesophageal junction. Left-sided chest tube is stable. No pneumothorax as visualized. Patchy infiltrates throughout both lungs, right greater than left, are grossly stable. Left-sided PICC line is unchanged. The osseous structures appear stable. Left fourth rib fracture is unchanged. IMPRESSION: Cardiomegaly with calcified atherosclerosis in the aorta. Nasogastric tube that continues to have its tip at the expected location of the gastroesophageal junction. Advancement by approximately 8 cm is advised. Stable left chest tube. No visualized pneumothorax. Stable patchy infiltrates in both lungs, right greater than left. Stable left fourth rib fracture. RPTAT: AA .Maurizio Orozco MD, Date Time Electronically viewed and signed by .Maurizio Orozco MD, MD on 02/23/2017 09:50 .P/ CC: CAS LIMA MD, [facility] Feb 23, 2017 14:16
[2017-02-23] MEDS: ATORVASTATIN 20 MG TAB NGT SCH (21:14)
[2017-02-24] VITALS (52 sets, daily range): BP systolic 83–136; BP diastolic 55–87; PULSE 50–92; RESP 14–34; Ht 180.3 cm; Wt 82.0 kg
[2017-02-24] MEDS: ARTIFICIAL TEARS 15 ML OPH BOTH EYES SCH ×4 (00:20→18:57)
[2017-02-24] MEDS: OCULAR LUBRICANT 3.5 GM OPH OINT BOTH EYES SCH ×4 (00:20→18:57)
[2017-02-24] MEDS: PIPER-TAZO 2.25 GM (PMX) 50 ML IVPB SCH ×4 (00:21→18:57)
[2017-02-24] MEDS: VASOPRESSIN 60 UNIT in DEXTROSE 5% 57 ML IV SCH ×2 (01:00→12:48)
[2017-02-24] MEDS: PANTOPRAZOLE 40 MG INJ IV SCH (05:22)
[2017-02-24] MEDS: INSULIN ASPART [NOVOLOG] 3 ML PEN SC SCH ×4 (05:22→19:05)
[2017-02-24 05:24] LABS: ADD SCAN DIFF NO
[2017-02-24 05:25] LABS: BASOPHILS % 0.2 % (0.0-2.0); EOSINOPHILS # 0.3 10^3/ul (0.0-0.5); EOSINOPHILS % 2.5 % (0.0-7.0); HEMATOCRIT 25.5 % (42.0-52.0); HEMOGLOBIN 8.3 g/dl (14.0-18.0); LYMPHOCYTES # 0.9 10^3/ul (0.8-2.9); LYMPHOCYTES % 9.2 % (15.0-51.0); MEAN CORPUSCULAR HEMOGLOBIN 32.3 pg (29.0-33.0); MEAN CORPUSCULAR HGB CONC 32.5 g/dl (32.0-37.0); MEAN CORPUSCULAR VOLUME 99.2 fl (82.0-101.0); MEAN PLATELET VOLUME 11.1 fl (7.4-10.4); MONOCYTE # 0.7 10^3/ul (0.3-0.9); MONOCYTES % 6.8 % (0.0-11.0); NEUTROPHILS % 80.5 % (39.0-77.0); PLATELET COUNT 145 10^3/UL (140-415); RED BLOOD COUNT 2.57 10^6/ul (4.70-6.10); RED CELL DISTRIBUTION WIDTH 17.6 % (11.5-14.5); WHITE BLOOD COUNT 9.9 10^3/ul (4.8-10.8)
[2017-02-24] MEDS: PROPOFOL 100 ML IV SCH ×3 (05:26→21:07)
[2017-02-24 05:58] LABS: CALCIUM 7.9 mg/dl (8.4-10.2); CREATININE 1.68 mg/dl (0.61-1.24); MAGNESIUM 1.8 mg/dl (1.7-2.5); POTASSIUM 3.9 mmol/L (3.5-5.1)
--- NOTE | 2017-02-24 07:57 | PN ---
Date/Time of Note Date/Time of Note DATE: 02/24/17 TIME: 07:54 Assessment/Plan VTE Prophylaxis VTE Prophylaxis Intervention: ambulation, other Lines/Catheters IV Catheter Type (from Nrsg): PICC Line Central line still needed: Yes Urinary Cath still in place: Yes Reason Cath still needed: other (indicate) Assessment/Plan Chief Complaint/Hosp Course 1. Nonoliguric acute kidney injury with previous baseline creatinine 0.8 mg/dL. -Etiology of CROW secondary to ATN due to ischemic hypoperfusion shock. -Urinalysis was reviewed evidence of proteinuria no evidence of active sediment -Renal function is fluctuating but overall stable -Continue current treatment plan, keep map greater than 65, continue gentle hydration -Continue supportive care, renally dose all meds, avoid nephrotoxic 2. Anemia. -Monitor H&H levels 3. Mineral bone disorder -Monitor calcium phosphorus levels -Replace phosphorus 4. Hypokalemia -Improved. continue to monitor - 5. Volume overload -Patient is positive total fluids., IV fluids were discontinued -Chest x-ray shows positive congestion -We will give lasix, monitor hemodynamic dynamics closely 6. Cardiac arrest. Patient status post hypothermia protocol -Follow-up with cardiology 7. Ventilator dependent respiratory failure -Vent settings ABGs reviewed -Follow-up with pulmonary 8. Pneumothorax -Status post chest tube placement, continue to monitor 9. Septic shock -Cultures positive for bacteremia -Continue antibiotic regimen, wean off pressors if possible -Follow-up with ID -Monitor closely 10. Mild hyponatremia Monitor Problems: Subjective 24 Hr Interval Summary Free Text/Dictation Patient remains critically ill, on pressor support. No other acute events noted overnight Exam/Review of Systems Vital Signs Vitals Vital Signs Date Time Temp Pulse Resp B/P Pulse Ox O2 Delivery O2 Flow Rate FiO2 02/24/17 05:10 71 26 99 30 02/23/17 19:45 98.8 95/64 02/23/17 19:30 3.0 02/23/17 09:30 Mechanical Ventilator Intake and Output 02/23/17 02/23/17 02/24/17 15:00 23:00 07:00 Intake Total 908.61 ml 1753.12 ml 918 ml Output Total 478 ml 514 ml 255 ml Balance 430.61 ml 1239.12 ml 663 ml Exam HEENT: Head is normocephalic. NECK: Supple. HEART: Irregular LUNGS: Show diminished breath sounds at base. ABDOMEN: Soft, nontender to palpation without rebound or guarding. EXTREMITIES: Negative for clubbing, cyanosis. DERMATOLOGIC: No rashes. MUSCULOSKELETAL: No joint effusions, NEUROLOGIC: No change in exam. Results Result Diagram: 02/24/17 0430 02/24/17 0430 Results 24 hrs Laboratory Tests Test 02/23/17 11:30 02/23/17 12:29 02/23/17 17:40 02/24/17 00:35 Vancomycin Level Trough 12.5 Bedside Glucose 87 80 95 Test 02/24/17 04:30 02/24/17 05:20 White Blood Count 9.9 Red Blood Count 2.57 L Hemoglobin 8.3 L Hematocrit 25.5 L Mean Corpuscular Volume 99.2 Mean Corpuscular Hemoglobin 32.3 Mean Corpuscular Hemoglobin Concent 32.5 Red Cell Distribution Width 17.6 H Platelet Count 145 Mean Platelet Volume 11.1 H Neutrophils % 80.5 H Lymphocytes % 9.2 L Monocytes % 6.8 Eosinophils % 2.5 Basophils % 0.2 Nucleated Red Blood Cells % 0.0 Neutrophils # 8.0 H Lymphocytes # 0.9 Monocytes # 0.7 Eosinophils # 0.3 Basophils # 0.0 Nucleated Red Blood Cells # 0.0 Sodium Level 144 Potassium Level 3.9 Chloride Level 112 H Carbon Dioxide Level 24 Anion Gap 12 Blood Urea Nitrogen 32 H Creatinine 1.68 H Glucose Level 123 Calcium Level 7.9 L Phosphorus Level 3.0 Magnesium Level 1.8 Bedside Glucose 124 Medications Medications Current Medications Fentanyl (Sublimaze) 25 mcg Q10M PRN IV SEDATION; Start 02/14/17 at 12:30 Ondansetron HCl (Zofran Inj) 4 mg Q6H PRN IV NAUSEA AND/OR VOMITING; Start 02/14 at 16:00 Morphine Sulfate (morphine) 2 mg Q4H PRN IV SEVERE PAIN LEVEL 7-10 Last administered on 02/21/17 19:35; Admin Dose 2 MG; Start 02/14/17 at 16:00 Pantoprazole 40 mg 40 mg DAILY@06 IV Last administered on 02/24/17 05:22; Admin Dose 40 MG; Start 02/15/17 at 06:00 Amiodarone HCl/ Dextrose (Cordarone Iv/ D5W) 500 ml @ 0 mls/hr Q0M IV Last administered on 02/14/17 17:51; Admin Dose 33.3 MLS/HR; Start 02/14/17 at 17:00; Status Future Hold Acetaminophen (Tylenol Supp) 650 mg Q4H PRN [place] TEMP > 37C; Start 02/14/17 at 18: 00 Acetaminophen (Tylenol Liquid) 650 mg Q4H PRN PO TEMP > 37C Last administered on 02/21/17 03:16; Admin Dose 650 MG; Start 02/14/17 at 18:00 Eye Lubricant (Akwa Oint) 1 applic Q6 BOTH EYES Last administered on 02/24/17 05:21; Admin Dose 1 APPLIC; Start 02/14/17 at 18:00 Eye Lubricant 2 drop 2 drop Q6 BOTH EYES Last administered on 02/24/17 05:21; Admin Dose 2 DROP; Start 02/14/17 at 18:00 Norepinephrine 16 mg/Dextrose 500 ml @ 0 mls/hr TITRATE IV Last administered on 02/20/17 19:05; Admin Dose 11.25 MLS/HR; Start 02/14/17 at 22:00 Azithromycin 500 mg/Sodium Chloride 250 ml @ 250 mls/hr DAILY IVPB Last administered on 02/23/17 09:01; Admin Dose 250 MLS/HR; Start 02/15/17 at 10:00 Phenylephrine HCl/ Dextrose (Fritz-Syneph/D5W) 500 ml @ 75 mls/hr TITRATE IV ; Start 02/16/17 at 03:30 Miscellaneous Information 1 ea NOTE XX ; Start 02/16/17 at 11:30 Glucose (Glutose) 15 gm Q15M PRN PO DECREASED GLUCOSE; Start 02/16/17 at 11:30 Glucose (Glutose) 22.5 gm Q15M PRN PO DECREASED GLUCOSE; Start 02/16/17 at 11:30 Dextrose (D50w Syringe) 25 ml Q15M PRN IV DECREASED GLUCOSE; Start 02/16/17 at 11:30 Dextrose (D50w Syringe) 50 ml Q15M PRN IV DECREASED GLUCOSE; Start 02/16/17 at 11:30 Glucagon (Glucagen) 1 mg Q15M PRN IM DECREASED GLUCOSE; Start 02/16/17 at 11:30 Glucose 15 gm 15 gm Q15M PRN BUCCAL DECREASED GLUCOSE; Start 02/16/17 at 11:30 Piperacillin Sod/ Tazobactam Sod 50 ml @ 100 mls/hr Q6 IVPB Last administered on 02/24/17 05:22; Admin Dose 100 MLS/HR; Start 02/16/17 at 18:00 Vasopressin/ Dextrose (Vasostrict/D5W) 60 ml @ 1.8 mls/hr Q12H IV ; Start at 13:00 Aspirin (Aspirin) 81 mg DAILY GTB Last administered on 02/23/17 09:01; Admin Dose 81 MG; Start 02/18/17 at 09:00 Atorvastatin Calcium (Lipitor) 20 mg HS NGT Last administered on 02/23/17 21: 14; Admin Dose 20 MG; Start 02/17/17 at 21:00 Insulin Aspart (Novolog Insulin Pen) NOVOLOG *MILD* ALGORI... Q6 SC Last administered on 02/20/17 17:54; Admin Dose 1 UNIT; Start 02/20/17 at 00:00 IV Flush (NS 10 ml) 10 ml PRN PRN IV IV PROTOCOL; Start 02/20/17 at 16:00 Lorazepam 1 mg 1 mg Q6H PRN IV AGITATION/ANXIETY Last administered on 23:26; Admin Dose 1 MG; Start 02/20/17 at 21:40 Vancomycin HCl 750 mg/Sodium Chloride 150 ml @ 75 mls/hr Q24H IVPB Last administered on 02/23/17 12:48; Admin Dose 75 MLS/HR; Start 02/21/17 at 12:00 Propofol 100 ml @ 2.07 mls/hr Q12H IV Last administered on 02/24/17 05:26; Admin Dose 8.28 MLS/HR; Start 02/22/17 at 04:00 Fentanyl (Sublimaze) 100 ml @ 2.5 mls/hr TITRATE IV Last administered on 12:44; Admin Dose 5 MLS/HR; Start 02/22/17 at 11:00 JENSEN OLIVIER DO Feb 24, 2017 07:57
--- NOTE | 2017-02-24 08:00 | RADRPT ---
PROCEDURE: XR Chest. CLINICAL INDICATION: Shortness of breath. TECHNIQUE: Single frontal view. COMPARISON: 02/23/2017. FINDINGS: The endotracheal tube, nasogastric tube, left arm PICC line, and left chest tube are in satisfactory position. There is severe bilateral pulmonary air space disease with right worse than left, unchan ged. Left rib fractures are once again noted. The heart size is normal. There is no pleural effusion. There is no pneumothorax. IMPRESSION: 1. Severe bilateral pulmonary air space disease with right worse than left. 2. No change from 02/23/2017. RPTAT: QQ .Guillermo Palafox MD, MD Date Time Electronically viewed and signed by .Guillermo Palafox MD, MD on 02/24/2017 08:00 .R/
[2017-02-24 08:12] LABS: AADO2 Arterial 102.4 mmHg (7.0-24.0); Allen Test ACCEPTAB; Arterial Base Excess -1.3 mmol/L (-3.0-3); Arterial COHb 0.3 % (0.0-3.0); Arterial Fraction of Oxyhgb 94.7 % (93.0-99.0); Arterial HCO3 21.6 mmol/L (22.0-26.0); Arterial MetHb 0.3 % (0.0-1.5); MODE VENT - AC
[2017-02-24] MEDS ORDERED: FUROSEMIDE 40 MG INJ IV SCH (09:00)
[2017-02-24] MEDS: ASPIRIN 81 MG TAB GTB SCH (09:37)
[2017-02-24] MEDS: AZITHROMYCIN 500 MG in SOD CHLORIDE 0.9% 250 ML IVPB SCH (09:38)
--- NOTE | 2017-02-24 11:32 | CONS ---
Date/Time of Note Date/Time of Note DATE: 02/24/17 TIME: 11:30 Consult Date/Type/Reason Admit Date/Time Feb 14, 2017 at 16:02 Type of Consultation: Pulmonary ICU Subjective Patient remains somnolent on mechanical ventilation intermittent agitation. Currently not opening eyes and following commands consistently. Discussed with his landlord. Patient has extensive history of alcohol abuse. No next of kin. Objective Vital Signs Date Time Temp Pulse Resp B/P Pulse Ox O2 Delivery O2 Flow Rate FiO2 02/24/17 09:00 87 30 97 30 02/23/17 19:45 98.8 95/64 02/23/17 19:30 3.0 02/23/17 09:30 Mechanical Ventilator Intake and Output 02/23/17 02/23/17 02/24/17 15:00 23:00 07:00 Intake Total 908.61 ml 1753.12 ml 918 ml Output Total 478 ml 514 ml 255 ml Balance 430.61 ml 1239.12 ml 663 ml Exam PHYSICAL EXAMINATION GENERAL: Elderly gentleman, intubated on mechanical ventilation, VITAL SIGNS: see below. HEENT: Pupils equal, round, and reactive to light. CARDIAC: S1, S2, 1/6 systolic ejection murmur CHEST: Diminished air entry bilaterally. ABDOMEN: Mildly distended. Bowel sounds present no guarding or rebound EXTREMITIES: No cyanosis, clubbing edema +1 NEUROLOGIC: Generalized weakness Results/Medications Result Diagram: 02/24/17 0430 02/24/17 0430 Results 24 hrs Laboratory Tests Test 02/23/17 12:29 02/23/17 17:40 02/24/17 00:35 02/24/17 04:30 Bedside Glucose 87 80 95 White Blood Count 9.9 Red Blood Count 2.57 L Hemoglobin 8.3 L Hematocrit 25.5 L Mean Corpuscular Volume 99.2 Mean Corpuscular Hemoglobin 32.3 Mean Corpuscular Hemoglobin Concent 32.5 Red Cell Distribution Width 17.6 H Platelet Count 145 Mean Platelet Volume 11.1 H Neutrophils % 80.5 H Lymphocytes % 9.2 L Monocytes % 6.8 Eosinophils % 2.5 Basophils % 0.2 Nucleated Red Blood Cells % 0.0 Neutrophils # 8.0 H Lymphocytes # 0.9 Monocytes # 0.7 Eosinophils # 0.3 Basophils # 0.0 Nucleated Red Blood Cells # 0.0 Sodium Level 144 Potassium Level 3.9 Chloride Level 112 H Carbon Dioxide Level 24 Anion Gap 12 Blood Urea Nitrogen 32 H Creatinine 1.68 H Glucose Level 123 Calcium Level 7.9 L Phosphorus Level 3.0 Magnesium Level 1.8 Test 02/24/17 05:20 02/24/17 07:00 Bedside Glucose 124 Blood Gas Specimen Source Blood arterial Arterial Blood Date Drawn 02/24/2017 7:40:30 AM Arterial Blood pH (Temp corrected) 7.477 H Arterial Blood pCO2 (Temp correct) 29.9 L Arterial Blood pO2 (Temp corrected) 76.4 L Arterial Blood HCO3 21.6 L Arterial Blood Base Excess -1.3 Arterial Blood Oxygen Saturation 95.3 Chris Test ACCEPTAB Arterial Blood Gas Puncture Site Left Radial Arterial Blood Carboxyhemoglobin 0.3 Arterial Blood Methemoglobin 0.3 Blood Gas A-a O2 Differential 102.4 H Oxyhemoglobin Percent 94.7 Total Hemoglobin 10.0 L Blood Gas Temperature 37.0 Blood Gas Respiration Rate 26.0 Blood Gas Actual Respiration Rate 26 Blood Gas Modality VENT - AC FiO2 30.0 Blood Gas Tidal Volume 500.0 Blood Gas Low PEEP Setting 5.0 Blood Gas Notified Whom RH Blood Gas Notified Time 02/24/2017 8:12:10 AM Medications Current Medications Fentanyl (Sublimaze) 25 mcg Q10M PRN IV SEDATION; Start 02/14/17 at 12:30 Ondansetron HCl (Zofran Inj) 4 mg Q6H PRN IV NAUSEA AND/OR VOMITING; Start 02/14 at 16:00 Morphine Sulfate (morphine) 2 mg Q4H PRN IV SEVERE PAIN LEVEL 7-10 Last administered on 02/21/17 19:35; Admin Dose 2 MG; Start 02/14/17 at 16:00 Pantoprazole 40 mg 40 mg DAILY@06 IV Last administered on 02/24/17 05:22; Admin Dose 40 MG; Start 02/15/17 at 06:00 Amiodarone HCl/ Dextrose (Cordarone Iv/ D5W) 500 ml @ 0 mls/hr Q0M IV Last administered on 02/14/17 17:51; Admin Dose 33.3 MLS/HR; Start 02/14/17 at 17:00; Status Future Hold Acetaminophen (Tylenol Supp) 650 mg Q4H PRN [place] TEMP > 37C; Start 02/14/17 at 18: 00 Acetaminophen (Tylenol Liquid) 650 mg Q4H PRN PO TEMP > 37C Last administered on 02/21/17 03:16; Admin Dose 650 MG; Start 02/14/17 at 18:00 Eye Lubricant (Akwa Oint) 1 applic Q6 BOTH EYES Last administered on 02/24/17 05:21; Admin Dose 1 APPLIC; Start 02/14/17 at 18:00 Eye Lubricant 2 drop 2 drop Q6 BOTH EYES Last administered on 02/24/17 05:21; Admin Dose 2 DROP; Start 02/14/17 at 18:00 Norepinephrine 16 mg/Dextrose 500 ml @ 0 mls/hr TITRATE IV Last administered on 02/20/17 19:05; Admin Dose 11.25 MLS/HR; Start 02/14/17 at 22:00 Azithromycin 500 mg/Sodium Chloride 250 ml @ 250 mls/hr DAILY IVPB Last administered on 02/24/17 09:38; Admin Dose 250 MLS/HR; Start 02/15/17 at 10:00 Phenylephrine HCl/ Dextrose (Fritz-Syneph/D5W) 500 ml @ 75 mls/hr TITRATE IV ; Start 02/16/17 at 03:30 Miscellaneous Information 1 ea NOTE XX ; Start 02/16/17 at 11:30 Glucose (Glutose) 15 gm Q15M PRN PO DECREASED GLUCOSE; Start 02/16/17 at 11:30 Glucose (Glutose) 22.5 gm Q15M PRN PO DECREASED GLUCOSE; Start 02/16/17 at 11:30 Dextrose (D50w Syringe) 25 ml Q15M PRN IV DECREASED GLUCOSE; Start 02/16/17 at 11:30 Dextrose (D50w Syringe) 50 ml Q15M PRN IV DECREASED GLUCOSE; Start 02/16/17 at 11:30 Glucagon (Glucagen) 1 mg Q15M PRN IM DECREASED GLUCOSE; Start 02/16/17 at 11:30 Glucose 15 gm 15 gm Q15M PRN BUCCAL DECREASED GLUCOSE; Start 02/16/17 at 11:30 Piperacillin Sod/ Tazobactam Sod 50 ml @ 100 mls/hr Q6 IVPB Last administered on 02/24/17 05:22; Admin Dose 100 MLS/HR; Start 02/16/17 at 18:00 Vasopressin/ Dextrose (Vasostrict/D5W) 60 ml @ 1.8 mls/hr Q12H IV ; Start at 13:00 Aspirin (Aspirin) 81 mg DAILY GTB Last administered on 02/24/17 09:37; Admin Dose 81 MG; Start 02/18/17 at 09:00 Atorvastatin Calcium (Lipitor) 20 mg HS NGT Last administered on 02/23/17 21: 14; Admin Dose 20 MG; Start 02/17/17 at 21:00 Insulin Aspart (Novolog Insulin Pen) NOVOLOG *MILD* ALGORI... Q6 SC Last administered on 02/20/17 17:54; Admin Dose 1 UNIT; Start 02/20/17 at 00:00 IV Flush (NS 10 ml) 10 ml PRN PRN IV IV PROTOCOL; Start 02/20/17 at 16:00 Lorazepam 1 mg 1 mg Q6H PRN IV AGITATION/ANXIETY Last administered on 23:26; Admin Dose 1 MG; Start 02/20/17 at 21:40 Vancomycin HCl 750 mg/Sodium Chloride 150 ml @ 75 mls/hr Q24H IVPB Last administered on 02/23/17 12:48; Admin Dose 75 MLS/HR; Start 02/21/17 at 12:00 Propofol 100 ml @ 2.07 mls/hr Q12H IV Last administered on 02/24/17 05:26; Admin Dose 8.28 MLS/HR; Start 02/22/17 at 04:00 Fentanyl (Sublimaze) 100 ml @ 2.5 mls/hr TITRATE IV Last administered on 12:44; Admin Dose 5 MLS/HR; Start 02/22/17 at 11:00 Furosemide (Lasix) 40 mg DAILY IV Last administered on 02/24/17 09:37; Admin Dose 40 MG; Start 02/24/17 at 09:00 Assessment/Plan Chief Complaint/Hosp Course IMP: 1. Cardiopulmonary Arrest: query primary cardiac event leading to respiratory failure and multilobar aspiration pneumonia 2. Respiratory Failure/Vent 3. Multifocal pneumonia--likely aspiration 4. s/p VF 5. ARF 6. Barotrauma--s/p CPR 7. Hypoglycemia 8. Septic shock secondary to above 9. Encephalopathy possibly toxic metabolic. 10. Anemia questionable GI bleed 11. Thrombocytopenia questionable underlying liver disorder RECS: 1. Unable to wean from mechanical ventilation at present. May require tracheostomy. 2. Pulmonary toilet 3. Continue tube feeding if tolerated 4. Levophed to MAP > 65 mm Hg; 5. Monitor H&H, transfusion packed red blood cells if continues to drop. 6. DVT and GI prophylaxis. 7. Trial of Precedex for agitation. Discussed with staff at bedside trail construction worker to arrange family conference. 40 min cc time Problems: CAS LIMA MD, [facility] Feb 24, 2017 11:31
--- NOTE | 2017-02-24 11:53 | PN ---
Date/Time of Note Date/Time of Note DATE: 02/24/17 TIME: 11:51 Assessment/Plan VTE Prophylaxis VTE Prophylaxis Intervention: SCD's Assessment/Plan Chief Complaint/Hosp Course 1. S/p Cardiac arrest secondary to V-fib status post ACLS with defibrillation and return of circulation -Status post hypothermia protocol / Cardiology following / patient did not meet criteria for emergent cardiac catheterization per cash checker on-call on arrival 2. Vent dependent resp failure secondary to cardiac arrest, now complicated by Pneumonia / pneumothorax and Rib fractures -Continue vent management / Pulmonology consultation appreciated 3. L sided Rib fractures and Pneumothorax secondary to repeated chest compressions - status post chest tube placement / Pulm managing 4. Sepsis with bilateral Pneumonia likely with a component of aspiration / Coagulase neg bacteremia / UTI - Continue current abx 5. Acute on Chronic Normocytic anemia with thrombocytopenia likely 2/2 Iron deficiency -Chronic Anemia is likely worsened by blood loss, which is likely precipitated by per thrombocytopenia -Transfuse PRBC again today and add platelets in view of active bleeding / Continue IV iron 6. Acute kidney disease on CKD secondary to cardiac arrest -Creatinine has been stable for the past few days / Continue to avoid Nephrotoxic meds / Renally dose all meds / Serial labs. 7. Reactive Hyperglycemia -Normal BG levels on regular tube feeds / d/c SSI 8. Acute encephalopathy 2/2 #1 : Patient gets agitated off sedation / remains sedated Dispo: * Pulmonary recommends family meeting as patient will likely need trach * Neurology eval * Continue all supportive care Prophylaxis: SCD's Problems: Subjective 24 Hr Interval Summary Subjective hx not possible: pt non-verbal Exam/Review of Systems Vital Signs Vitals Vital Signs Date Time Temp Pulse Resp B/P Pulse Ox O2 Delivery O2 Flow Rate FiO2 02/24/17 09:00 87 30 97 30 02/23/17 19:45 98.8 95/64 02/23/17 19:30 3.0 02/23/17 09:30 Mechanical Ventilator Intake and Output 02/23/17 02/23/17 02/24/17 15:00 23:00 07:00 Intake Total 908.61 ml 1753.12 ml 918 ml Output Total 478 ml 514 ml 255 ml Balance 430.61 ml 1239.12 ml 663 ml Exam Constitutional: non-verbal ENMT: intubated Respiratory: clear to auscultation Cardiovascular: regular rate and rhythm Gastrointestinal: soft, No distended Musculoskeletal: nl extremities to inspection Results Result Diagram: 02/24/17 0430 02/24/17 0430 Results 24 hrs Laboratory Tests Test 02/23/17 12:29 02/23/17 17:40 02/24/17 00:35 02/24/17 04:30 Bedside Glucose 87 80 95 White Blood Count 9.9 Red Blood Count 2.57 L Hemoglobin 8.3 L Hematocrit 25.5 L Mean Corpuscular Volume 99.2 Mean Corpuscular Hemoglobin 32.3 Mean Corpuscular Hemoglobin Concent 32.5 Red Cell Distribution Width 17.6 H Platelet Count 145 Mean Platelet Volume 11.1 H Neutrophils % 80.5 H Lymphocytes % 9.2 L Monocytes % 6.8 Eosinophils % 2.5 Basophils % 0.2 Nucleated Red Blood Cells % 0.0 Neutrophils # 8.0 H Lymphocytes # 0.9 Monocytes # 0.7 Eosinophils # 0.3 Basophils # 0.0 Nucleated Red Blood Cells # 0.0 Sodium Level 144 Potassium Level 3.9 Chloride Level 112 H Carbon Dioxide Level 24 Anion Gap 12 Blood Urea Nitrogen 32 H Creatinine 1.68 H Glucose Level 123 Calcium Level 7.9 L Phosphorus Level 3.0 Magnesium Level 1.8 Test 02/24/17 05:20 02/24/17 07:00 Bedside Glucose 124 Blood Gas Specimen Source Blood arterial Arterial Blood Date Drawn 02/24/2017 7:40:30 AM Arterial Blood pH (Temp corrected) 7.477 H Arterial Blood pCO2 (Temp correct) 29.9 L Arterial Blood pO2 (Temp corrected) 76.4 L Arterial Blood HCO3 21.6 L Arterial Blood Base Excess -1.3 Arterial Blood Oxygen Saturation 95.3 Chris Test ACCEPTAB Arterial Blood Gas Puncture Site Left Radial Arterial Blood Carboxyhemoglobin 0.3 Arterial Blood Methemoglobin 0.3 Blood Gas A-a O2 Differential 102.4 H Oxyhemoglobin Percent 94.7 Total Hemoglobin 10.0 L Blood Gas Temperature 37.0 Blood Gas Respiration Rate 26.0 Blood Gas Actual Respiration Rate 26 Blood Gas Modality VENT - AC FiO2 30.0 Blood Gas Tidal Volume 500.0 Blood Gas Low PEEP Setting 5.0 Blood Gas Notified Whom RH Blood Gas Notified Time 02/24/2017 8:12:10 AM Medications Medications Current Medications Fentanyl (Sublimaze) 25 mcg Q10M PRN IV SEDATION; Start 02/14/17 at 12:30 Ondansetron HCl (Zofran Inj) 4 mg Q6H PRN IV NAUSEA AND/OR VOMITING; Start 02/14 at 16:00 Morphine Sulfate (morphine) 2 mg Q4H PRN IV SEVERE PAIN LEVEL 7-10 Last administered on 02/21/17 19:35; Admin Dose 2 MG; Start 02/14/17 at 16:00 Pantoprazole 40 mg 40 mg DAILY@06 IV Last administered on 02/24/17 05:22; Admin Dose 40 MG; Start 02/15/17 at 06:00 Amiodarone HCl/ Dextrose (Cordarone Iv/ D5W) 500 ml @ 0 mls/hr Q0M IV Last administered on 02/14/17 17:51; Admin Dose 33.3 MLS/HR; Start 02/14/17 at 17:00; Status Future Hold Acetaminophen (Tylenol Supp) 650 mg Q4H PRN [place] TEMP > 37C; Start 02/14/17 at 18: 00 Acetaminophen (Tylenol Liquid) 650 mg Q4H PRN PO TEMP > 37C Last administered on 02/21/17 03:16; Admin Dose 650 MG; Start 02/14/17 at 18:00 Eye Lubricant (Akwa Oint) 1 applic Q6 BOTH EYES Last administered on 02/24/17 05:21; Admin Dose 1 APPLIC; Start 02/14/17 at 18:00 Eye Lubricant 2 drop 2 drop Q6 BOTH EYES Last administered on 02/24/17 05:21; Admin Dose 2 DROP; Start 02/14/17 at 18:00 Norepinephrine 16 mg/Dextrose 500 ml @ 0 mls/hr TITRATE IV Last administered on 02/20/17 19:05; Admin Dose 11.25 MLS/HR; Start 02/14/17 at 22:00 Azithromycin 500 mg/Sodium Chloride 250 ml @ 250 mls/hr DAILY IVPB Last administered on 02/24/17 09:38; Admin Dose 250 MLS/HR; Start 02/15/17 at 10:00 Phenylephrine HCl/ Dextrose (Fritz-Syneph/D5W) 500 ml @ 75 mls/hr TITRATE IV ; Start 02/16/17 at 03:30 Miscellaneous Information 1 ea NOTE XX ; Start 02/16/17 at 11:30 Glucose (Glutose) 15 gm Q15M PRN PO DECREASED GLUCOSE; Start 02/16/17 at 11:30 Glucose (Glutose) 22.5 gm Q15M PRN PO DECREASED GLUCOSE; Start 02/16/17 at 11:30 Dextrose (D50w Syringe) 25 ml Q15M PRN IV DECREASED GLUCOSE; Start 02/16/17 at 11:30 Dextrose (D50w Syringe) 50 ml Q15M PRN IV DECREASED GLUCOSE; Start 02/16/17 at 11:30 Glucagon (Glucagen) 1 mg Q15M PRN IM DECREASED GLUCOSE; Start 02/16/17 at 11:30 Glucose 15 gm 15 gm Q15M PRN BUCCAL DECREASED GLUCOSE; Start 02/16/17 at 11:30 Piperacillin Sod/ Tazobactam Sod 50 ml @ 100 mls/hr Q6 IVPB Last administered on 02/24/17 05:22; Admin Dose 100 MLS/HR; Start 02/16/17 at 18:00 Vasopressin/ Dextrose (Vasostrict/D5W) 60 ml @ 1.8 mls/hr Q12H IV ; Start at 13:00 Aspirin (Aspirin) 81 mg DAILY GTB Last administered on 02/24/17 09:37; Admin Dose 81 MG; Start 02/18/17 at 09:00 Atorvastatin Calcium (Lipitor) 20 mg HS NGT Last administered on 02/23/17 21: 14; Admin Dose 20 MG; Start 02/17/17 at 21:00 Insulin Aspart (Novolog Insulin Pen) NOVOLOG *MILD* ALGORI... Q6 SC Last administered on 02/20/17 17:54; Admin Dose 1 UNIT; Start 02/20/17 at 00:00 IV Flush (NS 10 ml) 10 ml PRN PRN IV IV PROTOCOL; Start 02/20/17 at 16:00 Lorazepam 1 mg 1 mg Q6H PRN IV AGITATION/ANXIETY Last administered on 23:26; Admin Dose 1 MG; Start 02/20/17 at 21:40 Vancomycin HCl 750 mg/Sodium Chloride 150 ml @ 75 mls/hr Q24H IVPB Last administered on 02/23/17 12:48; Admin Dose 75 MLS/HR; Start 02/21/17 at 12:00 Propofol 100 ml @ 2.07 mls/hr Q12H IV Last administered on 02/24/17 05:26; Admin Dose 8.28 MLS/HR; Start 02/22/17 at 04:00 Fentanyl (Sublimaze) 100 ml @ 2.5 mls/hr TITRATE IV Last administered on 12:44; Admin Dose 5 MLS/HR; Start 02/22/17 at 11:00 Furosemide 40 mg 40 mg DAILY IV Last administered on 02/24/17 09:37; Admin Dose 40 MG; Start 02/24/17 at 09:00 Dexmedetomidine HCl/Sodium Chloride (Precedex/NS) 50 ml @ 3.45 mls/hr TITRATE IV ; Start 02/24/17 at 12:00 GUILHERME YATES Feb 24, 2017 11:53
[2017-02-24] MEDS: VANCOMYCIN 750 MG in SOD CHLORIDE 0.9% 150 ML IVPB SCH (12:59)
[2017-02-24] MEDS: DEXMEDETOMIDINE HCL 200 MCG in SOD CHLORIDE 0.9% 48 ML IV SCH ×3 (15:27→21:07)
--- NOTE | 2017-02-24 16:43 | CONS ---
Date/Time of Note Date/Time of Note DATE: 02/24/17 TIME: 16:40 Assessment/Plan Assessment/Plan Additional Assessment/Plan This is a 76-year-old gentleman who is a non-historian who was found [place] by paramedics in a park patient was found to be in V. fib required ACLS with defibrillation and has been in the intensive care unit for 10 days now which appears that he is somewhat improved but still remains encephalopatic. The emergency room placed a chest tube for pneumothorax secondary to CPR. He remains in the intensive care unit septic secondary to pneumonia fluid and electrolyte abnormality once again in general remains encephalopathic agitated comes hypotensive with pain medications and sedation. Apparently there is a daughter but no one has been able to contact her. Issues to be addressed there are no and speak on patient's behalf We have an incomplete database His prognosis appears to be very poor but we do not know his baseline addition prior to admission. If patient's family member cannot be contacted I recommend bioethics consultation if Dr. Bhat and Dr. Hawk agree. Consultation Date/Type/Reason Admit Date/Time Feb 14, 2017 at 16:02 Type of Consultation: Palliative care Reason for Consultation Establish goals of care. Hx of Present Illness Recommendations made as per assessment and plan Social History Smoking Status: Unknown if ever smoked Exam/Review of Systems Vital Signs Vitals Vital Signs Date Time Temp Pulse Resp B/P Pulse Ox O2 Delivery O2 Flow Rate FiO2 02/24/17 15:30 85 27 114/61 98 02/24/17 15:00 Mechanical Ventilator 02/24/17 13:02 30 02/24/17 12:00 99.0 02/23/17 19:30 3.0 Intake and Output 02/23/17 02/23/17 02/24/17 15:00 23:00 07:00 Intake Total 908.61 ml 1753.12 ml 918 ml Output Total 478 ml 514 ml 255 ml Balance 430.61 ml 1239.12 ml 663 ml Exam Constitutional: non-verbal, other (Encephalopathic) Head: atraumatic, normocephalic Respiratory: congested cough, crackles/rales, diminished breath sounds, labored breathing Cardiovascular: No S3, No S4, No bruits, No diastolic murmur, No edema, No gallop, No irregular rhythm, No jugular venous distention (JVD), No murmurs/ extra sounds, No nl pulses, No other, No regular rate and rhythm, No rub, No systolic murmur Gastrointestinal: other (Grossly normal without distention low active bowel sounds, without rebound or peritoneal signs) Extremities: normal pulses Neurological: other (Thrashing in bed following minimal commands per nursing, does not follow simple commands for me at this time cranial nerves grossly intact motor grossly intact) Results Result Diagram: 02/24/17 0430 02/24/17 0430 Results 24 hrs Laboratory Tests Test 02/23/17 17:40 02/24/17 00:35 02/24/17 04:30 02/24/17 05:20 Bedside Glucose 80 95 124 White Blood Count 9.9 Red Blood Count 2.57 L Hemoglobin 8.3 L Hematocrit 25.5 L Mean Corpuscular Volume 99.2 Mean Corpuscular Hemoglobin 32.3 Mean Corpuscular Hemoglobin Concent 32.5 Red Cell Distribution Width 17.6 H Platelet Count 145 Mean Platelet Volume 11.1 H Neutrophils % 80.5 H Lymphocytes % 9.2 L Monocytes % 6.8 Eosinophils % 2.5 Basophils % 0.2 Nucleated Red Blood Cells % 0.0 Neutrophils # 8.0 H Lymphocytes # 0.9 Monocytes # 0.7 Eosinophils # 0.3 Basophils # 0.0 Nucleated Red Blood Cells # 0.0 Sodium Level 144 Potassium Level 3.9 Chloride Level 112 H Carbon Dioxide Level 24 Anion Gap 12 Blood Urea Nitrogen 32 H Creatinine 1.68 H Glucose Level 123 Calcium Level 7.9 L Phosphorus Level 3.0 Magnesium Level 1.8 Test 02/24/17 07:00 02/24/17 13:15 Blood Gas Specimen Source Blood arterial Arterial Blood Date Drawn 02/24/2017 7:40:30 AM Arterial Blood pH (Temp corrected) 7.477 H Arterial Blood pCO2 (Temp correct) 29.9 L Arterial Blood pO2 (Temp corrected) 76.4 L Arterial Blood HCO3 21.6 L Arterial Blood Base Excess -1.3 Arterial Blood Oxygen Saturation 95.3 Chris Test ACCEPTAB Arterial Blood Gas Puncture Site Left Radial Arterial Blood Carboxyhemoglobin 0.3 Arterial Blood Methemoglobin 0.3 Blood Gas A-a O2 Differential 102.4 H Oxyhemoglobin Percent 94.7 Total Hemoglobin 10.0 L Blood Gas Temperature 37.0 Blood Gas Respiration Rate 26.0 Blood Gas Actual Respiration Rate 26 Blood Gas Modality VENT - AC FiO2 30.0 Blood Gas Tidal Volume 500.0 Blood Gas Low PEEP Setting 5.0 Blood Gas Notified Whom RH Blood Gas Notified Time 02/24/2017 8:12:10 AM Bedside Glucose 120 Medications Medications Current Medications Fentanyl (Sublimaze) 25 mcg Q10M PRN IV SEDATION; Start 02/14/17 at 12:30 Ondansetron HCl (Zofran Inj) 4 mg Q6H PRN IV NAUSEA AND/OR VOMITING; Start 02/14 at 16:00 Morphine Sulfate (morphine) 2 mg Q4H PRN IV SEVERE PAIN LEVEL 7-10 Last administered on 02/21/17 19:35; Admin Dose 2 MG; Start 02/14/17 at 16:00 Pantoprazole 40 mg 40 mg DAILY@06 IV Last administered on 02/24/17 05:22; Admin Dose 40 MG; Start 02/15/17 at 06:00 Amiodarone HCl/ Dextrose (Cordarone Iv/ D5W) 500 ml @ 0 mls/hr Q0M IV Last administered on 02/14/17 17:51; Admin Dose 33.3 MLS/HR; Start 02/14/17 at 17:00; Status Future Hold Acetaminophen (Tylenol Supp) 650 mg Q4H PRN [place] TEMP > 37C; Start 02/14/17 at 18: 00 Acetaminophen (Tylenol Liquid) 650 mg Q4H PRN PO TEMP > 37C Last administered on 02/21/17 03:16; Admin Dose 650 MG; Start 02/14/17 at 18:00 Eye Lubricant (Akwa Oint) 1 applic Q6 BOTH EYES Last administered on 02/24/17 12:59; Admin Dose 1 APPLIC; Start 02/14/17 at 18:00 Eye Lubricant 2 drop 2 drop Q6 BOTH EYES Last administered on 02/24/17 12:59; Admin Dose 2 DROP; Start 02/14/17 at 18:00 Norepinephrine 16 mg/Dextrose 500 ml @ 0 mls/hr TITRATE IV Last administered on 02/20/17 19:05; Admin Dose 11.25 MLS/HR; Start 02/14/17 at 22:00 Azithromycin 500 mg/Sodium Chloride 250 ml @ 250 mls/hr DAILY IVPB Last administered on 02/24/17 09:38; Admin Dose 250 MLS/HR; Start 02/15/17 at 10:00 Phenylephrine HCl/ Dextrose (Fritz-Syneph/D5W) 500 ml @ 75 mls/hr TITRATE IV ; Start 02/16/17 at 03:30 Miscellaneous Information 1 ea NOTE XX ; Start 02/16/17 at 11:30 Glucose (Glutose) 15 gm Q15M PRN PO DECREASED GLUCOSE; Start 02/16/17 at 11:30 Glucose (Glutose) 22.5 gm Q15M PRN PO DECREASED GLUCOSE; Start 02/16/17 at 11:30 Dextrose (D50w Syringe) 25 ml Q15M PRN IV DECREASED GLUCOSE; Start 02/16/17 at 11:30 Dextrose (D50w Syringe) 50 ml Q15M PRN IV DECREASED GLUCOSE; Start 02/16/17 at 11:30 Glucagon (Glucagen) 1 mg Q15M PRN IM DECREASED GLUCOSE; Start 02/16/17 at 11:30 Glucose 15 gm 15 gm Q15M PRN BUCCAL DECREASED GLUCOSE; Start 02/16/17 at 11:30 Piperacillin Sod/ Tazobactam Sod 50 ml @ 100 mls/hr Q6 IVPB Last administered on 02/24/17 12:59; Admin Dose 100 MLS/HR; Start 02/16/17 at 18:00 Vasopressin/ Dextrose (Vasostrict/D5W) 60 ml @ 1.8 mls/hr Q12H IV ; Start at 13:00 Aspirin (Aspirin) 81 mg DAILY GTB Last administered on 02/24/17 09:37; Admin Dose 81 MG; Start 02/18/17 at 09:00 Atorvastatin Calcium (Lipitor) 20 mg HS NGT Last administered on 02/23/17 21: 14; Admin Dose 20 MG; Start 02/17/17 at 21:00 Insulin Aspart (Novolog Insulin Pen) NOVOLOG *MILD* ALGORI... Q6 SC Last administered on 02/20/17 17:54; Admin Dose 1 UNIT; Start 02/20/17 at 00:00 IV Flush (NS 10 ml) 10 ml PRN PRN IV IV PROTOCOL; Start 02/20/17 at 16:00 Lorazepam 1 mg 1 mg Q6H PRN IV AGITATION/ANXIETY Last administered on 23:26; Admin Dose 1 MG; Start 02/20/17 at 21:40 Vancomycin HCl 750 mg/Sodium Chloride 150 ml @ 75 mls/hr Q24H IVPB Last administered on 02/24/17 12:59; Admin Dose 75 MLS/HR; Start 02/21/17 at 12:00 Propofol 100 ml @ 2.07 mls/hr Q12H IV Last administered on 02/24/17 05:26; Admin Dose 8.28 MLS/HR; Start 02/22/17 at 04:00 Fentanyl (Sublimaze) 100 ml @ 2.5 mls/hr TITRATE IV Last administered on 12:44; Admin Dose 5 MLS/HR; Start 02/22/17 at 11:00 Furosemide 40 mg 40 mg DAILY IV Last administered on 02/24/17 09:37; Admin Dose 40 MG; Start 02/24/17 at 09:00 Dexmedetomidine HCl/Sodium Chloride (Precedex/NS) 50 ml @ 3.45 mls/hr TITRATE IV Last administered on 02/24/17 15:27; Admin Dose 3.45 MLS/HR; Start at 12:00 SPARKLE RAE Feb 24, 2017 16:43
--- NOTE | 2017-02-24 18:57 | CONS ---
Date/Time of Note Date/Time of Note DATE: 02/24/17 TIME: 18:55 Assessment/Plan Assessment/Plan Additional Assessment/Plan Cardiopulmonary arrest Septic shock Vent dependent respiratory failure Cardiomyopathy with ejection fraction 20% Non-ST elevation [place] Acute kidney injury Acute blood loss anemia Paroxysmal atrial fibrillation -Patient status post hypothermia protocol. -Continue aspirin and statin therapy, no beta-naida given hypotension as well as BERTHA inhibitor given acute kidney injury. -Amiodarone to help maintain in sinus rhythm Consultation Date/Type/Reason Admit Date/Time Feb 14, 2017 at 16:02 Type of Consultation: cv 24 HR Interval Summary Free Text/Dictation Patient seen and examined Exam/Review of Systems Vital Signs Vitals Vital Signs Date Time Temp Pulse Resp B/P Pulse Ox O2 Delivery O2 Flow Rate FiO2 02/24/17 17:00 90 34 135/84 98 02/24/17 17:00 30 02/24/17 16:00 98.7 02/24/17 15:00 Mechanical Ventilator 02/23/17 19:30 3.0 Intake and Output 02/23/17 02/23/17 02/24/17 15:00 23:00 07:00 Intake Total 908.61 ml 1753.12 ml 918 ml Output Total 478 ml 514 ml 255 ml Balance 430.61 ml 1239.12 ml 663 ml Exam Sedated and intubated, no apparent distress Head: normocephalic ENMT: intubated Respiratory: other (Coarse breath sounds bilaterally, no wheezing) Cardiovascular: other (S1-S2 heard), regular rate and rhythm Gastrointestinal: bowel sounds, non-tender, soft Extremities: edema (Trace) Results Result Diagram: 02/24/17 0430 02/24/17 0430 Results 24 hrs Laboratory Tests Test 02/24/17 00:35 02/24/17 04:30 02/24/17 05:20 02/24/17 07:00 Bedside Glucose 95 124 White Blood Count 9.9 Red Blood Count 2.57 L Hemoglobin 8.3 L Hematocrit 25.5 L Mean Corpuscular Volume 99.2 Mean Corpuscular Hemoglobin 32.3 Mean Corpuscular Hemoglobin Concent 32.5 Red Cell Distribution Width 17.6 H Platelet Count 145 Mean Platelet Volume 11.1 H Neutrophils % 80.5 H Lymphocytes % 9.2 L Monocytes % 6.8 Eosinophils % 2.5 Basophils % 0.2 Nucleated Red Blood Cells % 0.0 Neutrophils # 8.0 H Lymphocytes # 0.9 Monocytes # 0.7 Eosinophils # 0.3 Basophils # 0.0 Nucleated Red Blood Cells # 0.0 Sodium Level 144 Potassium Level 3.9 Chloride Level 112 H Carbon Dioxide Level 24 Anion Gap 12 Blood Urea Nitrogen 32 H Creatinine 1.68 H Glucose Level 123 Calcium Level 7.9 L Phosphorus Level 3.0 Magnesium Level 1.8 Blood Gas Specimen Source Blood arterial Arterial Blood Date Drawn 02/24/2017 7:40:30 AM Arterial Blood pH (Temp corrected) 7.477 H Arterial Blood pCO2 (Temp correct) 29.9 L Arterial Blood pO2 (Temp corrected) 76.4 L Arterial Blood HCO3 21.6 L Arterial Blood Base Excess -1.3 Arterial Blood Oxygen Saturation 95.3 Chris Test ACCEPTAB Arterial Blood Gas Puncture Site Left Radial Arterial Blood Carboxyhemoglobin 0.3 Arterial Blood Methemoglobin 0.3 Blood Gas A-a O2 Differential 102.4 H Oxyhemoglobin Percent 94.7 Total Hemoglobin 10.0 L Blood Gas Temperature 37.0 Blood Gas Respiration Rate 26.0 Blood Gas Actual Respiration Rate 26 Blood Gas Modality VENT - AC FiO2 30.0 Blood Gas Tidal Volume 500.0 Blood Gas Low PEEP Setting 5.0 Blood Gas Notified Whom RH Blood Gas Notified Time 02/24/2017 8:12:10 AM Test 02/24/17 13:15 Bedside Glucose 120 Medications Medications Current Medications Fentanyl (Sublimaze) 25 mcg Q10M PRN IV SEDATION; Start 02/14/17 at 12:30 Ondansetron HCl (Zofran Inj) 4 mg Q6H PRN IV NAUSEA AND/OR VOMITING; Start 02/14 at 16:00 Morphine Sulfate (morphine) 2 mg Q4H PRN IV SEVERE PAIN LEVEL 7-10 Last administered on 02/21/17 19:35; Admin Dose 2 MG; Start 02/14/17 at 16:00 Pantoprazole 40 mg 40 mg DAILY@06 IV Last administered on 02/24/17 05:22; Admin Dose 40 MG; Start 02/15/17 at 06:00 Amiodarone HCl/ Dextrose (Cordarone Iv/ D5W) 500 ml @ 0 mls/hr Q0M IV Last administered on 02/14/17 17:51; Admin Dose 33.3 MLS/HR; Start 02/14/17 at 17:00; Status Future Hold Acetaminophen (Tylenol Supp) 650 mg Q4H PRN [place] TEMP > 37C; Start 02/14/17 at 18: 00 Acetaminophen (Tylenol Liquid) 650 mg Q4H PRN PO TEMP > 37C Last administered on 02/21/17 03:16; Admin Dose 650 MG; Start 02/14/17 at 18:00 Eye Lubricant (Akwa Oint) 1 applic Q6 BOTH EYES Last administered on 02/24/17 12:59; Admin Dose 1 APPLIC; Start 02/14/17 at 18:00 Eye Lubricant 2 drop 2 drop Q6 BOTH EYES Last administered on 02/24/17 12:59; Admin Dose 2 DROP; Start 02/14/17 at 18:00 Norepinephrine 16 mg/Dextrose 500 ml @ 0 mls/hr TITRATE IV Last administered on 02/20/17 19:05; Admin Dose 11.25 MLS/HR; Start 02/14/17 at 22:00 Azithromycin 500 mg/Sodium Chloride 250 ml @ 250 mls/hr DAILY IVPB Last administered on 02/24/17 09:38; Admin Dose 250 MLS/HR; Start 02/15/17 at 10:00 Phenylephrine HCl/ Dextrose (Fritz-Syneph/D5W) 500 ml @ 75 mls/hr TITRATE IV ; Start 02/16/17 at 03:30 Miscellaneous Information 1 ea NOTE XX ; Start 02/16/17 at 11:30 Glucose (Glutose) 15 gm Q15M PRN PO DECREASED GLUCOSE; Start 02/16/17 at 11:30 Glucose (Glutose) 22.5 gm Q15M PRN PO DECREASED GLUCOSE; Start 02/16/17 at 11:30 Dextrose (D50w Syringe) 25 ml Q15M PRN IV DECREASED GLUCOSE; Start 02/16/17 at 11:30 Dextrose (D50w Syringe) 50 ml Q15M PRN IV DECREASED GLUCOSE; Start 02/16/17 at 11:30 Glucagon (Glucagen) 1 mg Q15M PRN IM DECREASED GLUCOSE; Start 02/16/17 at 11:30 Glucose 15 gm 15 gm Q15M PRN BUCCAL DECREASED GLUCOSE; Start 02/16/17 at 11:30 Piperacillin Sod/ Tazobactam Sod 50 ml @ 100 mls/hr Q6 IVPB Last administered on 02/24/17 12:59; Admin Dose 100 MLS/HR; Start 02/16/17 at 18:00 Vasopressin/ Dextrose (Vasostrict/D5W) 60 ml @ 1.8 mls/hr Q12H IV ; Start at 13:00 Aspirin (Aspirin) 81 mg DAILY GTB Last administered on 02/24/17 09:37; Admin Dose 81 MG; Start 02/18/17 at 09:00 Atorvastatin Calcium (Lipitor) 20 mg HS NGT Last administered on 02/23/17 21: 14; Admin Dose 20 MG; Start 02/17/17 at 21:00 Insulin Aspart (Novolog Insulin Pen) NOVOLOG *MILD* ALGORI... Q6 SC Last administered on 02/20/17 17:54; Admin Dose 1 UNIT; Start 02/20/17 at 00:00 IV Flush (NS 10 ml) 10 ml PRN PRN IV IV PROTOCOL; Start 02/20/17 at 16:00 Lorazepam 1 mg 1 mg Q6H PRN IV AGITATION/ANXIETY Last administered on 23:26; Admin Dose 1 MG; Start 02/20/17 at 21:40 Vancomycin HCl 750 mg/Sodium Chloride 150 ml @ 75 mls/hr Q24H IVPB Last administered on 02/24/17 12:59; Admin Dose 75 MLS/HR; Start 02/21/17 at 12:00 Propofol 100 ml @ 2.07 mls/hr Q12H IV Last administered on 02/24/17 05:26; Admin Dose 8.28 MLS/HR; Start 02/22/17 at 04:00 Fentanyl (Sublimaze) 100 ml @ 2.5 mls/hr TITRATE IV Last administered on 12:44; Admin Dose 5 MLS/HR; Start 02/22/17 at 11:00 Furosemide 40 mg 40 mg DAILY IV Last administered on 02/24/17 09:37; Admin Dose 40 MG; Start 02/24/17 at 09:00 Dexmedetomidine HCl/Sodium Chloride (Precedex/NS) 50 ml @ 3.45 mls/hr TITRATE IV Last administered on 02/24/17 15:27; Admin Dose 3.45 MLS/HR; Start at 12:00 Casey Schuler DO Feb 24, 2017 18:57
[2017-02-24] MEDS: AMIODARONE 200 MG TAB NGT SCH (21:00)
[2017-02-24] MEDS: ATORVASTATIN 20 MG TAB NGT SCH (21:04)
[2017-02-25] VITALS (84 sets, daily range): BP systolic 80–145; BP diastolic 57–94; PULSE 47–87; RESP 14–32
[2017-02-25] MEDS: ARTIFICIAL TEARS 15 ML OPH BOTH EYES SCH ×4 (00:31→18:24)
[2017-02-25] MEDS: OCULAR LUBRICANT 3.5 GM OPH OINT BOTH EYES SCH ×4 (00:31→18:24)
[2017-02-25] MEDS: PIPER-TAZO 2.25 GM (PMX) 50 ML IVPB SCH ×4 (00:32→18:24)
[2017-02-25] MEDS: DEXMEDETOMIDINE HCL 200 MCG in SOD CHLORIDE 0.9% 48 ML IV SCH ×9 (00:44→22:19)
[2017-02-25] MEDS: VASOPRESSIN 60 UNIT in DEXTROSE 5% 57 ML IV SCH ×2 (01:00→12:35)
[2017-02-25 04:52] LABS: ADD SCAN DIFF NO
[2017-02-25 04:55] LABS: BASOPHILS % 0.3 % (0.0-2.0); EOSINOPHILS # 0.1 10^3/ul (0.0-0.5); EOSINOPHILS % 1.1 % (0.0-7.0); HEMATOCRIT 26.1 % (42.0-52.0); HEMOGLOBIN 8.3 g/dl (14.0-18.0); LYMPHOCYTES # 0.9 10^3/ul (0.8-2.9); LYMPHOCYTES % 8.8 % (15.0-51.0); MEAN CORPUSCULAR HEMOGLOBIN 31.3 pg (29.0-33.0); MEAN CORPUSCULAR HGB CONC 31.8 g/dl (32.0-37.0); MEAN CORPUSCULAR VOLUME 98.5 fl (82.0-101.0); MEAN PLATELET VOLUME 11.1 fl (7.4-10.4); MONOCYTE # 0.7 10^3/ul (0.3-0.9); MONOCYTES % 6.8 % (0.0-11.0); NEUTROPHIL # 8.4 10^3/ul (1.6-7.5); NEUTROPHILS % 82.2 % (39.0-77.0); PLATELET COUNT 164 10^3/UL (140-415); RED BLOOD COUNT 2.65 10^6/ul (4.70-6.10); RED CELL DISTRIBUTION WIDTH 17.5 % (11.5-14.5); WHITE BLOOD COUNT 10.3 10^3/ul (4.8-10.8)
[2017-02-25 05:16] LABS: CALCIUM 8.4 mg/dl (8.4-10.2); CREATININE 1.72 mg/dl (0.61-1.24); MAGNESIUM 1.8 mg/dl (1.7-2.5); PHOSPHORUS 3.8 mg/dl (2.5-4.9); POTASSIUM 3.8 mmol/L (3.5-5.1)
[2017-02-25] MEDS: PANTOPRAZOLE 40 MG INJ IV SCH ×2 (05:39→06:29)
--- NOTE | 2017-02-25 07:13 | PN ---
Date/Time of Note Date/Time of Note DATE: 02/25/17 TIME: 07:11 Assessment/Plan VTE Prophylaxis VTE Prophylaxis Intervention: other Lines/Catheters IV Catheter Type (from Nrsg): PICC Line Central line still needed: Yes Urinary Cath still in place: Yes Reason Cath still needed: other (indicate) Assessment/Plan Chief Complaint/Hosp Course 1. Nonoliguric acute kidney injury with previous baseline creatinine 0.8 mg/dL. -Etiology of CROW secondary to ATN due to ischemic hypoperfusion shock. -Urinalysis was reviewed evidence of proteinuria no evidence of active sediment -Renal function is fluctuating but overall stable -Continue current treatment plan, keep map greater than 65, continue -Monitor renal function on diuretics -Continue supportive care, renally dose all meds, avoid nephrotoxic 2. Anemia. -Monitor H&H levels 3. Mineral bone disorder -Monitor calcium phosphorus levels 4. Hypokalemia -Improved. continue to monitor - 5. Volume overload -Patient is positive total fluids., IV fluids were discontinued -Chest x-ray shows positive congestion -Continue Lasix monitor I's and O 6. Cardiac arrest. Patient status post hypothermia protocol -Follow-up with cardiology 7. Ventilator dependent respiratory failure -Vent settings ABGs reviewed -Follow-up with pulmonary 8. Pneumothorax -Status post chest tube placement, continue to monitor 9. Sepsis status post -Cultures positive for bacteremia -Continue antibiotic regimen, off pressors -Follow-up with ID -Monitor closely 10. Mild hyponatremia Monitor Problems: Subjective 24 Hr Interval Summary Free Text/Dictation Patient remains critically ill weaned off pressors. Tolerating diuretics well with good urinary output Exam/Review of Systems Vital Signs Vitals Vital Signs Date Time Temp Pulse Resp B/P Pulse Ox O2 Delivery O2 Flow Rate FiO2 02/25/17 06:30 48 26 113/75 99 Mechanical Ventilator 02/25/17 05:26 30 02/25/17 04:00 98.0 02/23/17 19:30 3.0 Intake and Output 02/24/17 02/24/17 02/25/17 15:00 23:00 07:00 Intake Total 298 ml 800 ml Output Total 160 ml 2400 ml 920 ml Balance -160 ml -2102 ml -120 ml Exam HEENT: Head is normocephalic. NECK: Supple. HEART: Irregular LUNGS: Show diminished breath sounds at base. ABDOMEN: Soft, nontender to palpation without rebound or guarding. EXTREMITIES: Negative for clubbing, cyanosis. DERMATOLOGIC: No rashes. MUSCULOSKELETAL: No joint effusions, NEUROLOGIC: No change in exam. Results Result Diagram: 02/25/17 0430 02/25/17 0430 Results 24 hrs Laboratory Tests Test 02/24/17 13:15 02/24/17 19:07 02/25/17 00:39 02/25/17 04:30 Bedside Glucose 120 112 103 White Blood Count 10.3 Red Blood Count 2.65 L Hemoglobin 8.3 L Hematocrit 26.1 L Mean Corpuscular Volume 98.5 Mean Corpuscular Hemoglobin 31.3 Mean Corpuscular Hemoglobin Concent 31.8 L Red Cell Distribution Width 17.5 H Platelet Count 164 Mean Platelet Volume 11.1 H Neutrophils % 82.2 H Lymphocytes % 8.8 L Monocytes % 6.8 Eosinophils % 1.1 Basophils % 0.3 Nucleated Red Blood Cells % 0.0 Neutrophils # 8.4 H Lymphocytes # 0.9 Monocytes # 0.7 Eosinophils # 0.1 Basophils # 0.0 Nucleated Red Blood Cells # 0.0 Sodium Level 144 Potassium Level 3.8 Chloride Level 108 Carbon Dioxide Level 26 Anion Gap 14 Blood Urea Nitrogen 33 H Creatinine 1.72 H Glucose Level 78 # Calcium Level 8.4 Phosphorus Level 3.8 Magnesium Level 1.8 Test 02/25/17 05:41 Bedside Glucose 91 Medications Medications Current Medications Fentanyl (Sublimaze) 25 mcg Q10M PRN IV SEDATION; Start 02/14/17 at 12:30 Ondansetron HCl (Zofran Inj) 4 mg Q6H PRN IV NAUSEA AND/OR VOMITING; Start 02/14 at 16:00 Morphine Sulfate (morphine) 2 mg Q4H PRN IV SEVERE PAIN LEVEL 7-10 Last administered on 02/21/17 19:35; Admin Dose 2 MG; Start 02/14/17 at 16:00 Pantoprazole 40 mg 40 mg DAILY@06 IV Last administered on 02/25/17 06:29; Admin Dose 40 MG; Start 02/15/17 at 06:00 Amiodarone HCl/ Dextrose (Cordarone Iv/ D5W) 500 ml @ 0 mls/hr Q0M IV Last administered on 02/14/17 17:51; Admin Dose 33.3 MLS/HR; Start 02/14/17 at 17:00; Status Future Hold Acetaminophen (Tylenol Supp) 650 mg Q4H PRN [place] TEMP > 37C; Start 02/14/17 at 18: 00 Acetaminophen (Tylenol Liquid) 650 mg Q4H PRN PO TEMP > 37C Last administered on 02/21/17 03:16; Admin Dose 650 MG; Start 02/14/17 at 18:00 Eye Lubricant (Akwa Oint) 1 applic Q6 BOTH EYES Last administered on 02/25/17 05:39; Admin Dose 1 APPLIC; Start 02/14/17 at 18:00 Eye Lubricant 2 drop 2 drop Q6 BOTH EYES Last administered on 02/25/17 05:39; Admin Dose 2 DROP; Start 02/14/17 at 18:00 Norepinephrine 16 mg/Dextrose 500 ml @ 0 mls/hr TITRATE IV Last administered on 02/20/17 19:05; Admin Dose 11.25 MLS/HR; Start 02/14/17 at 22:00 Azithromycin 500 mg/Sodium Chloride 250 ml @ 250 mls/hr DAILY IVPB Last administered on 02/24/17 09:38; Admin Dose 250 MLS/HR; Start 02/15/17 at 10:00 Phenylephrine HCl/ Dextrose (Fritz-Syneph/D5W) 500 ml @ 75 mls/hr TITRATE IV ; Start 02/16/17 at 03:30 Miscellaneous Information 1 ea NOTE XX ; Start 02/16/17 at 11:30 Glucose (Glutose) 15 gm Q15M PRN PO DECREASED GLUCOSE; Start 02/16/17 at 11:30 Glucose (Glutose) 22.5 gm Q15M PRN PO DECREASED GLUCOSE; Start 02/16/17 at 11:30 Dextrose (D50w Syringe) 25 ml Q15M PRN IV DECREASED GLUCOSE; Start 02/16/17 at 11:30 Dextrose (D50w Syringe) 50 ml Q15M PRN IV DECREASED GLUCOSE; Start 02/16/17 at 11:30 Glucagon (Glucagen) 1 mg Q15M PRN IM DECREASED GLUCOSE; Start 02/16/17 at 11:30 Glucose 15 gm 15 gm Q15M PRN BUCCAL DECREASED GLUCOSE; Start 02/16/17 at 11:30 Piperacillin Sod/ Tazobactam Sod 50 ml @ 100 mls/hr Q6 IVPB Last administered on 02/25/17 05:39; Admin Dose 100 MLS/HR; Start 02/16/17 at 18:00 Vasopressin/ Dextrose (Vasostrict/D5W) 60 ml @ 1.8 mls/hr Q12H IV ; Start at 13:00 Aspirin (Aspirin) 81 mg DAILY GTB Last administered on 02/24/17 09:37; Admin Dose 81 MG; Start 02/18/17 at 09:00 Atorvastatin Calcium (Lipitor) 20 mg HS NGT Last administered on 02/24/17 21: 04; Admin Dose 20 MG; Start 02/17/17 at 21:00 Insulin Aspart (Novolog Insulin Pen) NOVOLOG *MILD* ALGORI... Q6 SC Last administered on 02/20/17 17:54; Admin Dose 1 UNIT; Start 02/20/17 at 00:00 IV Flush (NS 10 ml) 10 ml PRN PRN IV IV PROTOCOL; Start 02/20/17 at 16:00 Lorazepam 1 mg 1 mg Q6H PRN IV AGITATION/ANXIETY Last administered on 23:26; Admin Dose 1 MG; Start 02/20/17 at 21:40 Vancomycin HCl 750 mg/Sodium Chloride 150 ml @ 75 mls/hr Q24H IVPB Last administered on 02/24/17 12:59; Admin Dose 75 MLS/HR; Start 02/21/17 at 12:00 Propofol 100 ml @ 2.07 mls/hr Q12H IV Last administered on 02/24/17 21:07; Admin Dose 4.14 MLS/HR; Start 02/22/17 at 04:00 Fentanyl (Sublimaze) 100 ml @ 2.5 mls/hr TITRATE IV Last administered on 12:44; Admin Dose 5 MLS/HR; Start 02/22/17 at 11:00 Furosemide 40 mg 40 mg DAILY IV Last administered on 02/24/17 09:37; Admin Dose 40 MG; Start 02/24/17 at 09:00 Dexmedetomidine HCl/Sodium Chloride (Precedex/NS) 50 ml @ 3.45 mls/hr TITRATE IV Last administered on 02/25/17 06:29; Admin Dose 24.15 MLS/HR; Start at 12:00 Amiodarone HCl (Cordarone) 200 mg BID NGT ; Start 02/24/17 at 21:00 JENSEN OLIVIER DO Feb 25, 2017 07:13
[2017-02-25] MEDS ORDERED: POTASSIUM CHLORIDE 20 MEQ POWDER FOR ORAL SOLN GTB ONE (07:30)
[2017-02-25] MEDS: INSULIN ASPART [NOVOLOG] 3 ML PEN SC SCH ×4 (08:00→18:00)
[2017-02-25] MEDS: FUROSEMIDE 40 MG INJ IV SCH ×2 (08:45→20:46)
[2017-02-25] MEDS: ASPIRIN 81 MG TAB GTB SCH (08:45)
[2017-02-25] MEDS: AMIODARONE 200 MG TAB NGT SCH ×2 (08:46→21:00)
[2017-02-25] MEDS: AZITHROMYCIN 500 MG in SOD CHLORIDE 0.9% 250 ML IVPB SCH (09:18)
--- NOTE | 2017-02-25 09:50 | CONS ---
Date/Time of Note Date/Time of Note DATE: 02/25/17 TIME: 09:47 Assessment/Plan Assessment/Plan Chief Complaint/Hosp Course Recommendations made as per assessment and plan Problems: Additional Assessment/Plan Options if patient does not improve significantly an EEG and neurology consult confirm grave neurological injury, two physicians can sign for comfort measures. If that is not the case I would suggest bioethics consultation to establish ongoing goals of care. This can be done with communication with bioethics committee sample taker operator rather than the full committee. Consultation Date/Type/Reason Admit Date/Time Feb 14, 2017 at 16:02 Initial Consult Date Type of Consultation: Palliative care follow-up note Exam/Review of Systems Vital Signs Vitals Vital Signs Date Time Temp Pulse Resp B/P Pulse Ox O2 Delivery O2 Flow Rate FiO2 02/25/17 08:00 47 02/25/17 06:30 26 113/75 99 Mechanical Ventilator 02/25/17 05:26 30 02/25/17 04:00 98.0 02/23/17 19:30 3.0 Intake and Output 02/24/17 02/24/17 02/25/17 15:00 23:00 07:00 Intake Total 298 ml 800 ml Output Total 160 ml 2400 ml 920 ml Balance -160 ml -2102 ml -120 ml Results Result Diagram: 02/25/17 0430 02/25/17 0430 Results 24 hrs Laboratory Tests Test 02/24/17 13:15 02/24/17 19:07 02/25/17 00:39 02/25/17 04:30 Bedside Glucose 120 112 103 White Blood Count 10.3 Red Blood Count 2.65 L Hemoglobin 8.3 L Hematocrit 26.1 L Mean Corpuscular Volume 98.5 Mean Corpuscular Hemoglobin 31.3 Mean Corpuscular Hemoglobin Concent 31.8 L Red Cell Distribution Width 17.5 H Platelet Count 164 Mean Platelet Volume 11.1 H Neutrophils % 82.2 H Lymphocytes % 8.8 L Monocytes % 6.8 Eosinophils % 1.1 Basophils % 0.3 Nucleated Red Blood Cells % 0.0 Neutrophils # 8.4 H Lymphocytes # 0.9 Monocytes # 0.7 Eosinophils # 0.1 Basophils # 0.0 Nucleated Red Blood Cells # 0.0 Sodium Level 144 Potassium Level 3.8 Chloride Level 108 Carbon Dioxide Level 26 Anion Gap 14 Blood Urea Nitrogen 33 H Creatinine 1.72 H Glucose Level 78 # Calcium Level 8.4 Phosphorus Level 3.8 Magnesium Level 1.8 Test 02/25/17 05:41 02/25/17 08:26 Bedside Glucose 91 90 Medications Medications Current Medications Fentanyl (Sublimaze) 25 mcg Q10M PRN IV SEDATION; Start 02/14/17 at 12:30 Ondansetron HCl (Zofran Inj) 4 mg Q6H PRN IV NAUSEA AND/OR VOMITING; Start 02/14 at 16:00 Morphine Sulfate (morphine) 2 mg Q4H PRN IV SEVERE PAIN LEVEL 7-10 Last administered on 02/21/17 19:35; Admin Dose 2 MG; Start 02/14/17 at 16:00 Pantoprazole 40 mg 40 mg DAILY@06 IV Last administered on 02/25/17 06:29; Admin Dose 40 MG; Start 02/15/17 at 06:00 Amiodarone HCl/ Dextrose (Cordarone Iv/ D5W) 500 ml @ 0 mls/hr Q0M IV Last administered on 02/14/17 17:51; Admin Dose 33.3 MLS/HR; Start 02/14/17 at 17:00; Status Future Hold Acetaminophen (Tylenol Supp) 650 mg Q4H PRN MS TEMP > 37C; Start 02/14/17 at 18: 00 Acetaminophen (Tylenol Liquid) 650 mg Q4H PRN PO TEMP > 37C Last administered on 02/21/17 03:16; Admin Dose 650 MG; Start 02/14/17 at 18:00 Eye Lubricant (Akwa Oint) 1 applic Q6 BOTH EYES Last administered on 02/25/17 05:39; Admin Dose 1 APPLIC; Start 02/14/17 at 18:00 Eye Lubricant 2 drop 2 drop Q6 BOTH EYES Last administered on 02/25/17 05:39; Admin Dose 2 DROP; Start 02/14/17 at 18:00 Norepinephrine 16 mg/Dextrose 500 ml @ 0 mls/hr TITRATE IV Last administered on 02/20/17 19:05; Admin Dose 11.25 MLS/HR; Start 02/14/17 at 22:00 Azithromycin 500 mg/Sodium Chloride 250 ml @ 250 mls/hr DAILY IVPB Last administered on 02/25/17 09:18; Admin Dose 250 MLS/HR; Start 02/15/17 at 10:00 Phenylephrine HCl/ Dextrose (Fritz-Syneph/D5W) 500 ml @ 75 mls/hr TITRATE IV ; Start 02/16/17 at 03:30 Miscellaneous Information 1 ea NOTE XX ; Start 02/16/17 at 11:30 Glucose (Glutose) 15 gm Q15M PRN PO DECREASED GLUCOSE; Start 02/16/17 at 11:30 Glucose (Glutose) 22.5 gm Q15M PRN PO DECREASED GLUCOSE; Start 02/16/17 at 11:30 Dextrose (D50w Syringe) 25 ml Q15M PRN IV DECREASED GLUCOSE; Start 02/16/17 at 11:30 Dextrose (D50w Syringe) 50 ml Q15M PRN IV DECREASED GLUCOSE; Start 02/16/17 at 11:30 Glucagon (Glucagen) 1 mg Q15M PRN IM DECREASED GLUCOSE; Start 02/16/17 at 11:30 Glucose 15 gm 15 gm Q15M PRN BUCCAL DECREASED GLUCOSE; Start 02/16/17 at 11:30 Piperacillin Sod/ Tazobactam Sod 50 ml @ 100 mls/hr Q6 IVPB Last administered on 02/25/17 05:39; Admin Dose 100 MLS/HR; Start 02/16/17 at 18:00 Vasopressin/ Dextrose (Vasostrict/D5W) 60 ml @ 1.8 mls/hr Q12H IV ; Start at 13:00 Aspirin (Aspirin) 81 mg DAILY GTB Last administered on 02/25/17 08:45; Admin Dose 81 MG; Start 02/18/17 at 09:00 Atorvastatin Calcium (Lipitor) 20 mg HS NGT Last administered on 02/24/17 21: 04; Admin Dose 20 MG; Start 02/17/17 at 21:00 Insulin Aspart (Novolog Insulin Pen) NOVOLOG *MILD* ALGORI... Q6 SC Last administered on 02/20/17 17:54; Admin Dose 1 UNIT; Start 02/20/17 at 00:00 IV Flush (NS 10 ml) 10 ml PRN PRN IV IV PROTOCOL; Start 02/20/17 at 16:00 Lorazepam 1 mg 1 mg Q6H PRN IV AGITATION/ANXIETY Last administered on 7/14/ 17at 23:26; Admin Dose 1 MG; Start 02/20/17 at 21:40 Vancomycin HCl 750 mg/Sodium Chloride 150 ml @ 75 mls/hr Q24H IVPB Last administered on 02/24/17 12:59; Admin Dose 75 MLS/HR; Start 02/21/17 at 12:00 Propofol 100 ml @ 2.07 mls/hr Q12H IV Last administered on 02/24/17 21:07; Admin Dose 4.14 MLS/HR; Start 02/22/17 at 04:00 Fentanyl 100 ml @ 2.5 mls/hr TITRATE IV Last administered on 02/23/17 12:44; Admin Dose 5 MLS/HR; Start 02/22/17 at 11:00 Dexmedetomidine HCl/Sodium Chloride (Precedex/NS) 50 ml @ 3.45 mls/hr TITRATE IV Last administered on 02/25/17 08:50; Admin Dose 12.07 MLS/HR; Start at 12:00 Amiodarone HCl (Cordarone) 200 mg BID NGT ; Start 02/24/17 at 21:00 Furosemide (Lasix) 40 mg BID IV Last administered on 02/25/17 08:45; Admin Dose 40 MG; Start 02/25/17 at 09:00 SPARKLE RAE Feb 25, 2017 09:50
--- NOTE | 2017-02-25 10:41 | CONS ---
Date/Time of Note Date/Time of Note DATE: 02/25/17 TIME: 10:39 Consult Date/Type/Reason Admit Date/Time Feb 14, 2017 at 16:02 Type of Consultation: Pulmonary Subjective Patient placed on Precedex yesterday this morning is awake and alert makes eye contact but not following commands. Currently hemodynamically stable no vasopressor requirements. Placed on CPAP weaning trial currently pulling adequate tidal volumes. Objective Vital Signs Date Time Temp Pulse Resp B/P Pulse Ox O2 Delivery O2 Flow Rate FiO2 02/25/17 08:00 47 02/25/17 06:30 26 113/75 99 Mechanical Ventilator 02/25/17 05:26 30 02/25/17 04:00 98.0 02/23/17 19:30 3.0 Intake and Output 02/24/17 02/24/17 02/25/17 14:59 22:59 06:59 Intake Total 224 ml 874 ml Output Total 160 ml 1800 ml 1520 ml Balance -160 ml -1576 ml -646 ml Exam PHYSICAL EXAMINATION GENERAL: Elderly gentleman, intubated on mechanical ventilation, VITAL SIGNS: see below. HEENT: Pupils equal, round, and reactive to light. CARDIAC: S1, S2, 1/6 systolic ejection murmur CHEST: Diminished air entry bilaterally. ABDOMEN: Mildly distended. Bowel sounds present no guarding or rebound EXTREMITIES: No cyanosis, clubbing edema +1 NEUROLOGIC: Generalized weakness Results/Medications Result Diagram: 02/25/17 0430 02/25/17 0430 Results 24 hrs Chest x-ray Interstitial edema. Laboratory Tests Test 02/24/17 13:15 02/24/17 19:07 02/25/17 00:39 02/25/17 04:30 Bedside Glucose 120 112 103 White Blood Count 10.3 Red Blood Count 2.65 L Hemoglobin 8.3 L Hematocrit 26.1 L Mean Corpuscular Volume 98.5 Mean Corpuscular Hemoglobin 31.3 Mean Corpuscular Hemoglobin Concent 31.8 L Red Cell Distribution Width 17.5 H Platelet Count 164 Mean Platelet Volume 11.1 H Neutrophils % 82.2 H Lymphocytes % 8.8 L Monocytes % 6.8 Eosinophils % 1.1 Basophils % 0.3 Nucleated Red Blood Cells % 0.0 Neutrophils # 8.4 H Lymphocytes # 0.9 Monocytes # 0.7 Eosinophils # 0.1 Basophils # 0.0 Nucleated Red Blood Cells # 0.0 Sodium Level 144 Potassium Level 3.8 Chloride Level 108 Carbon Dioxide Level 26 Anion Gap 14 Blood Urea Nitrogen 33 H Creatinine 1.72 H Glucose Level 78 # Calcium Level 8.4 Phosphorus Level 3.8 Magnesium Level 1.8 Test 02/25/17 05:41 02/25/17 08:26 Bedside Glucose 91 90 Medications Current Medications Fentanyl (Sublimaze) 25 mcg Q10M PRN IV SEDATION; Start 02/14/17 at 12:30 Ondansetron HCl (Zofran Inj) 4 mg Q6H PRN IV NAUSEA AND/OR VOMITING; Start 02/14 at 16:00 Morphine Sulfate (morphine) 2 mg Q4H PRN IV SEVERE PAIN LEVEL 7-10 Last administered on 02/21/17 19:35; Admin Dose 2 MG; Start 02/14/17 at 16:00 Pantoprazole 40 mg 40 mg DAILY@06 IV Last administered on 02/25/17 06:29; Admin Dose 40 MG; Start 02/15/17 at 06:00 Amiodarone HCl/ Dextrose (Cordarone Iv/ D5W) 500 ml @ 0 mls/hr Q0M IV Last administered on 02/14/17 17:51; Admin Dose 33.3 MLS/HR; Start 02/14/17 at 17:00; Status Future Hold Acetaminophen (Tylenol Supp) 650 mg Q4H PRN [place] TEMP > 37C; Start 02/14/17 at 18: 00 Acetaminophen (Tylenol Liquid) 650 mg Q4H PRN PO TEMP > 37C Last administered on 02/21/17 03:16; Admin Dose 650 MG; Start 02/14/17 at 18:00 Eye Lubricant (Akwa Oint) 1 applic Q6 BOTH EYES Last administered on 02/25/17 05:39; Admin Dose 1 APPLIC; Start 02/14/17 at 18:00 Eye Lubricant 2 drop 2 drop Q6 BOTH EYES Last administered on 02/25/17 05:39; Admin Dose 2 DROP; Start 02/14/17 at 18:00 Norepinephrine 16 mg/Dextrose 500 ml @ 0 mls/hr TITRATE IV Last administered on 02/20/17 19:05; Admin Dose 11.25 MLS/HR; Start 02/14/17 at 22:00 Azithromycin 500 mg/Sodium Chloride 250 ml @ 250 mls/hr DAILY IVPB Last administered on 02/25/17 09:18; Admin Dose 250 MLS/HR; Start 02/15/17 at 10:00 Phenylephrine HCl/ Dextrose (Fritz-Syneph/D5W) 500 ml @ 75 mls/hr TITRATE IV ; Start 02/16/17 at 03:30 Miscellaneous Information 1 ea NOTE XX ; Start 02/16/17 at 11:30 Glucose (Glutose) 15 gm Q15M PRN PO DECREASED GLUCOSE; Start 02/16/17 at 11:30 Glucose (Glutose) 22.5 gm Q15M PRN PO DECREASED GLUCOSE; Start 02/16/17 at 11:30 Dextrose (D50w Syringe) 25 ml Q15M PRN IV DECREASED GLUCOSE; Start 02/16/17 at 11:30 Dextrose (D50w Syringe) 50 ml Q15M PRN IV DECREASED GLUCOSE; Start 02/16/17 at 11:30 Glucagon (Glucagen) 1 mg Q15M PRN IM DECREASED GLUCOSE; Start 02/16/17 at 11:30 Glucose 15 gm 15 gm Q15M PRN BUCCAL DECREASED GLUCOSE; Start 02/16/17 at 11:30 Piperacillin Sod/ Tazobactam Sod 50 ml @ 100 mls/hr Q6 IVPB Last administered on 02/25/17 05:39; Admin Dose 100 MLS/HR; Start 02/16/17 at 18:00 Vasopressin/ Dextrose (Vasostrict/D5W) 60 ml @ 1.8 mls/hr Q12H IV ; Start at 13:00 Aspirin (Aspirin) 81 mg DAILY GTB Last administered on 02/25/17 08:45; Admin Dose 81 MG; Start 02/18/17 at 09:00 Atorvastatin Calcium (Lipitor) 20 mg HS NGT Last administered on 02/24/17 21: 04; Admin Dose 20 MG; Start 02/17/17 at 21:00 Insulin Aspart (Novolog Insulin Pen) NOVOLOG *MILD* ALGORI... Q6 SC Last administered on 02/20/17 17:54; Admin Dose 1 UNIT; Start 02/20/17 at 00:00 IV Flush (NS 10 ml) 10 ml PRN PRN IV IV PROTOCOL; Start 02/20/17 at 16:00 Lorazepam 1 mg 1 mg Q6H PRN IV AGITATION/ANXIETY Last administered on 23:26; Admin Dose 1 MG; Start 02/20/17 at 21:40 Vancomycin HCl 750 mg/Sodium Chloride 150 ml @ 75 mls/hr Q24H IVPB Last administered on 02/24/17 12:59; Admin Dose 75 MLS/HR; Start 02/21/17 at 12:00 Propofol 100 ml @ 2.07 mls/hr Q12H IV Last administered on 02/24/17 21:07; Admin Dose 4.14 MLS/HR; Start 02/22/17 at 04:00 Fentanyl 100 ml @ 2.5 mls/hr TITRATE IV Last administered on 02/23/17 12:44; Admin Dose 5 MLS/HR; Start 02/22/17 at 11:00 Dexmedetomidine HCl/Sodium Chloride (Precedex/NS) 50 ml @ 3.45 mls/hr TITRATE IV Last administered on 02/25/17 08:50; Admin Dose 12.07 MLS/HR; Start at 12:00 Amiodarone HCl (Cordarone) 200 mg BID NGT ; Start 02/24/17 at 21:00 Furosemide (Lasix) 40 mg BID IV Last administered on 02/25/17 08:45; Admin Dose 40 MG; Start 02/25/17 at 09:00 Assessment/Plan Chief Complaint/Hosp Course IMP: 1. Cardiopulmonary Arrest: query primary cardiac event leading to respiratory failure and multilobar aspiration pneumonia 2. Respiratory Failure/Vent 3. Multifocal pneumonia--likely aspiration 4. s/p VF 5. ARF 6. Barotrauma--s/p CPR 7. Hypoglycemia 8. Septic shock secondary to above 9. Encephalopathy possibly toxic metabolic. Appears to be improved today RECS: 1. CPAP weaning trial this morning this patient is more alert 2. Pulmonary toilet 3. Continue tube feeding if tolerated 4. Levophed to MAP > 65 mm Hg; 5. Monitor H&H, transfusion packed red blood cells if continues to drop. 6. DVT and GI prophylaxis. 7. Trial of Precedex for agitation. Discussed with staff at bedside Discussed with social media director yesterday apparently no close next of kin. 40 min cc time Problems: CAS LIMA MD, [facility] Feb 25, 2017 10:40
[2017-02-25 12:03] LABS: AADO2 Arterial 59.9 mmHg (7.0-24.0); Allen Test ACCEPTAB; Arterial Base Excess -1.4 mmol/L (-3.0-3); Arterial COHb 0.3 % (0.0-3.0); Arterial Fraction of Oxyhgb 96.8 % (93.0-99.0); Arterial HCO3 22.4 mmol/L (22.0-26.0); Arterial MetHb 0.3 % (0.0-1.5); Arterial Total Hemglobin 9.6 g/dl (12.0-18.0); Blood Gas PS 10; MODE VENT - CPAP
--- NOTE | 2017-02-25 12:13 | RADRPT ---
PROCEDURE: XR Chest 1 View. CLINICAL INDICATION: Shortness of breath TECHNIQUE: AP view of the chest was obtained. COMPARISON: Yesterday FINDINGS: The cardiomediastinal silhouette is within normal limits. Endotracheal and nasogastric tubes are sta ble and appear in grossly appropriate location. Left-sided PICC line is unchanged. Patchy infiltra barry throughout both lungs are stable. Small pleural effusions are stable. The lungs are hyperexpande d. Left chest tube is stable. No pneumothorax as visualized. Pleural thickening at the right apex i s stable. Left lateral fourth through sixth rib fractures are stable. The osseous structures are unc hanged. IMPRESSION: Stable left chest tube. No visualized pneumothorax. Stable patchy infiltrates throughout both lungs and small pleural effusions. Stable pleural thickening at the right apex. Hyperexpanded lungs. Stable left rib fractures. RPTAT: AA .Maurizio Orozco MD, Date Time Electronically viewed and signed by .Maurizio Orozco MD, on 02/25/2017 12:13 .P/
[2017-02-25] MEDS: VANCOMYCIN 750 MG in SOD CHLORIDE 0.9% 150 ML IVPB SCH (12:34)
--- NOTE | 2017-02-25 13:15 | CONS ---
Date/Time of Note Date/Time of Note DATE: 02/25/17 TIME: 13:13 Assessment/Plan Assessment/Plan Additional Assessment/Plan Cardiopulmonary arrest Septic shock Vent dependent respiratory failure Cardiomyopathy with ejection fraction 20% Non-ST elevation [place] Acute kidney injury Acute blood loss anemia Paroxysmal atrial fibrillation -Patient status post hypothermia protocol. -Continue aspirin and statin therapy, no beta-naida given hypotension and bradycardia as well as no BERTHA inhibitor given acute kidney injury. -Patient with bradycardia noted, we decreased dose of amiodarone with holding parameters to help maintain in sinus rhythm. Consultation Date/Type/Reason Admit Date/Time Feb 14, 2017 at 16:02 Type of Consultation: cv 24 HR Interval Summary Free Text/Dictation Patient seen and examined, undergoing CPAP trial Exam/Review of Systems Vital Signs Vitals Vital Signs Date Time Temp Pulse Resp B/P Pulse Ox O2 Delivery O2 Flow Rate FiO2 02/25/17 12:00 60 02/25/17 11:00 20 89/59 100 Mechanical Ventilator 02/25/17 09:45 96.0 02/25/17 08:00 30 02/23/17 19:30 3.0 Intake and Output 02/24/17 02/24/17 02/25/17 15:00 23:00 07:00 Intake Total 298 ml 800 ml Output Total 160 ml 2400 ml 920 ml Balance -160 ml -2102 ml -120 ml Exam Sedated and intubated, no apparent distress Head: normocephalic Respiratory: other (Coarse breath sounds bilaterally, no wheezing) Cardiovascular: other (S1-S2 heard), regular rate and rhythm Gastrointestinal: bowel sounds, other (No grimacing with palpation), soft Extremities: edema Results Result Diagram: 02/25/17 0430 02/25/17 0430 Results 24 hrs Laboratory Tests Test 02/24/17 13:15 02/24/17 19:07 02/25/17 00:39 02/25/17 04:30 Bedside Glucose 120 112 103 White Blood Count 10.3 Red Blood Count 2.65 L Hemoglobin 8.3 L Hematocrit 26.1 L Mean Corpuscular Volume 98.5 Mean Corpuscular Hemoglobin 31.3 Mean Corpuscular Hemoglobin Concent 31.8 L Red Cell Distribution Width 17.5 H Platelet Count 164 Mean Platelet Volume 11.1 H Neutrophils % 82.2 H Lymphocytes % 8.8 L Monocytes % 6.8 Eosinophils % 1.1 Basophils % 0.3 Nucleated Red Blood Cells % 0.0 Neutrophils # 8.4 H Lymphocytes # 0.9 Monocytes # 0.7 Eosinophils # 0.1 Basophils # 0.0 Nucleated Red Blood Cells # 0.0 Sodium Level 144 Potassium Level 3.8 Chloride Level 108 Carbon Dioxide Level 26 Anion Gap 14 Blood Urea Nitrogen 33 H Creatinine 1.72 H Glucose Level 78 # Calcium Level 8.4 Phosphorus Level 3.8 Magnesium Level 1.8 Test 02/25/17 05:41 02/25/17 08:26 02/25/17 11:15 02/25/17 12:32 Bedside Glucose 91 90 118 Blood Gas Specimen Source Blood arterial Arterial Blood Date Drawn 02/25/2017 11:20:13 AM Arterial Blood pH (Temp corrected) 7.438 Arterial Blood pCO2 (Temp correct) 33.9 L Arterial Blood pO2 (Temp corrected) 114.2 H Arterial Blood HCO3 22.4 Arterial Blood Base Excess -1.4 Arterial Blood Oxygen Saturation 97.4 Chris Test ACCEPTAB Arterial Blood Gas Puncture Site Right Radial Arterial Blood Carboxyhemoglobin 0.3 Arterial Blood Methemoglobin 0.3 Blood Gas A-a O2 Differential 59.9 H Oxyhemoglobin Percent 96.8 Total Hemoglobin 9.6 L Blood Gas Temperature 37.0 Blood Gas Actual Respiration Rate 27 Blood Gas Modality VENT - CPAP FiO2 30.0 Blood Gas Low PEEP Setting 5.0 Blood Gas Pressure Support 10 Blood Gas Notified Whom JLD Blood Gas Notified Time 02/25/2017 12:02:56 PM Medications Medications Current Medications Fentanyl (Sublimaze) 25 mcg Q10M PRN IV SEDATION; Start 02/14/17 at 12:30 Ondansetron HCl (Zofran Inj) 4 mg Q6H PRN IV NAUSEA AND/OR VOMITING; Start 02/14 at 16:00 Morphine Sulfate (morphine) 2 mg Q4H PRN IV SEVERE PAIN LEVEL 7-10 Last administered on 02/21/17 19:35; Admin Dose 2 MG; Start 02/14/17 at 16:00 Pantoprazole 40 mg 40 mg DAILY@06 IV Last administered on 02/25/17 06:29; Admin Dose 40 MG; Start 02/15/17 at 06:00 Amiodarone HCl/ Dextrose (Cordarone Iv/ D5W) 500 ml @ 0 mls/hr Q0M IV Last administered on 02/14/17 17:51; Admin Dose 33.3 MLS/HR; Start 02/14/17 at 17:00; Status Future Hold Acetaminophen (Tylenol Supp) 650 mg Q4H PRN IN TEMP > 37C; Start 02/14/17 at 18: 00 Acetaminophen (Tylenol Liquid) 650 mg Q4H PRN PO TEMP > 37C Last administered on 02/21/17 03:16; Admin Dose 650 MG; Start 02/14/17 at 18:00 Eye Lubricant (Akwa Oint) 1 applic Q6 BOTH EYES Last administered on 02/25/17 12:35; Admin Dose 1 APPLIC; Start 02/14/17 at 18:00 Eye Lubricant 2 drop 2 drop Q6 BOTH EYES Last administered on 02/25/17 12:35; Admin Dose 2 DROP; Start 02/14/17 at 18:00 Norepinephrine 16 mg/Dextrose 500 ml @ 0 mls/hr TITRATE IV Last administered on 02/20/17 19:05; Admin Dose 11.25 MLS/HR; Start 02/14/17 at 22:00 Azithromycin 500 mg/Sodium Chloride 250 ml @ 250 mls/hr DAILY IVPB Last administered on 02/25/17 09:18; Admin Dose 250 MLS/HR; Start 02/15/17 at 10:00 Phenylephrine HCl/ Dextrose (Fritz-Syneph/D5W) 500 ml @ 75 mls/hr TITRATE IV ; Start 02/16/17 at 03:30 Miscellaneous Information 1 ea NOTE XX ; Start 02/16/17 at 11:30 Glucose (Glutose) 15 gm Q15M PRN PO DECREASED GLUCOSE; Start 02/16/17 at 11:30 Glucose (Glutose) 22.5 gm Q15M PRN PO DECREASED GLUCOSE; Start 02/16/17 at 11:30 Dextrose (D50w Syringe) 25 ml Q15M PRN IV DECREASED GLUCOSE; Start 02/16/17 at 11:30 Dextrose (D50w Syringe) 50 ml Q15M PRN IV DECREASED GLUCOSE; Start 02/16/17 at 11:30 Glucagon (Glucagen) 1 mg Q15M PRN IM DECREASED GLUCOSE; Start 02/16/17 at 11:30 Glucose 15 gm 15 gm Q15M PRN BUCCAL DECREASED GLUCOSE; Start 02/16/17 at 11:30 Piperacillin Sod/ Tazobactam Sod 50 ml @ 100 mls/hr Q6 IVPB Last administered on 02/25/17 12:34; Admin Dose 100 MLS/HR; Start 02/16/17 at 18:00 Vasopressin/ Dextrose (Vasostrict/D5W) 60 ml @ 1.8 mls/hr Q12H IV ; Start at 13:00 Aspirin (Aspirin) 81 mg DAILY GTB Last administered on 02/25/17 08:45; Admin Dose 81 MG; Start 02/18/17 at 09:00 Atorvastatin Calcium (Lipitor) 20 mg HS NGT Last administered on 02/24/17 21: 04; Admin Dose 20 MG; Start 02/17/17 at 21:00 Insulin Aspart (Novolog Insulin Pen) NOVOLOG *MILD* ALGORI... Q6 SC Last administered on 02/20/17 17:54; Admin Dose 1 UNIT; Start 02/20/17 at 00:00 IV Flush (NS 10 ml) 10 ml PRN PRN IV IV PROTOCOL; Start 02/20/17 at 16:00 Lorazepam 1 mg 1 mg Q6H PRN IV AGITATION/ANXIETY Last administered on 23:26; Admin Dose 1 MG; Start 02/20/17 at 21:40 Vancomycin HCl 750 mg/Sodium Chloride 150 ml @ 75 mls/hr Q24H IVPB Last administered on 02/25/17 12:34; Admin Dose 75 MLS/HR; Start 02/21/17 at 12:00 Propofol 100 ml @ 2.07 mls/hr Q12H IV Last administered on 02/24/17 21:07; Admin Dose 4.14 MLS/HR; Start 02/22/17 at 04:00 Fentanyl 100 ml @ 2.5 mls/hr TITRATE IV Last administered on 02/23/17 12:44; Admin Dose 5 MLS/HR; Start 02/22/17 at 11:00 Dexmedetomidine HCl/Sodium Chloride (Precedex/NS) 50 ml @ 3.45 mls/hr TITRATE IV Last administered on 02/25/17 08:50; Admin Dose 12.07 MLS/HR; Start at 12:00 Amiodarone HCl (Cordarone) 200 mg BID NGT ; Start 02/24/17 at 21:00 Furosemide (Lasix) 40 mg BID IV Last administered on 02/25/17t 08:45; Admin Dose 40 MG; Start 02/25/17 at 09:00 Casey Schuler DO Feb 25, 2017 13:14
[2017-02-25] MEDS ORDERED: MAGNESIUM SULFATE 2 GM/50 ML 50 ML IVPB ONE (13:30)
--- NOTE | 2017-02-25 14:08 | PN ---
Date/Time of Note Date/Time of Note DATE: 02/25/17 TIME: 14:07 Assessment/Plan VTE Prophylaxis VTE Prophylaxis Intervention: SCD's Assessment/Plan Chief Complaint/Hosp Course 1. S/p Cardiac arrest secondary to V-fib status post ACLS with defibrillation and return of circulation -Status post hypothermia protocol / Cardiology following / patient did not meet criteria for emergent cardiac catheterization per build automation engineer on-call on arrival 2. Vent dependent resp failure secondary to cardiac arrest, now complicated by Pneumonia / pneumothorax and Rib fractures -Continue vent management / Pulmonology consultation appreciated 3. L sided Rib fractures and Pneumothorax secondary to repeated chest compressions - status post chest tube placement / Pulm managing 4. Sepsis with bilateral Pneumonia likely with a component of aspiration / Coagulase neg bacteremia / UTI - Continue current abx 5. Acute on Chronic Normocytic anemia with thrombocytopenia likely 2/2 Iron deficiency -Chronic Anemia is likely worsened by blood loss, which is likely precipitated by per thrombocytopenia -Transfuse PRBC again today and add platelets in view of active bleeding / Continue IV iron 6. Acute kidney disease on CKD secondary to cardiac arrest -Creatinine has been stable for the past few days / Continue to avoid Nephrotoxic meds / Renally dose all meds / Serial labs. 7. Reactive Hyperglycemia -Normal BG levels on regular tube feeds / d/c SSI 8. Acute encephalopathy 2/2 #1 : Patient gets agitated off sedation / remains sedated Dispo: * Pulmonary recommends family meeting as patient will likely need trach * Neurology eval * Continue all supportive care Prophylaxis: SCD's Problems: Subjective 24 Hr Interval Summary Subjective hx not possible: pt non-verbal Exam/Review of Systems Vital Signs Vitals Vital Signs Date Time Temp Pulse Resp B/P Pulse Ox O2 Delivery O2 Flow Rate FiO2 02/25/17 13:45 67 22 123/78 99 Mechanical Ventilator 02/25/17 12:00 97.0 02/25/17 08:00 30 02/23/17 19:30 3.0 Intake and Output 02/24/17 02/24/17 02/25/17 15:00 23:00 07:00 Intake Total 298 ml 800 ml Output Total 160 ml 2400 ml 920 ml Balance -160 ml -2102 ml -120 ml Exam Constitutional: non-verbal ENMT: intubated Respiratory: clear to auscultation Cardiovascular: regular rate and rhythm Gastrointestinal: soft, No distended Musculoskeletal: nl extremities to inspection Results Result Diagram: 02/25/17 0430 02/25/17 0430 Results 24 hrs Laboratory Tests Test 02/24/17 19:07 02/25/17 00:39 02/25/17 04:30 02/25/17 05:41 Bedside Glucose 112 103 91 White Blood Count 10.3 Red Blood Count 2.65 L Hemoglobin 8.3 L Hematocrit 26.1 L Mean Corpuscular Volume 98.5 Mean Corpuscular Hemoglobin 31.3 Mean Corpuscular Hemoglobin Concent 31.8 L Red Cell Distribution Width 17.5 H Platelet Count 164 Mean Platelet Volume 11.1 H Neutrophils % 82.2 H Lymphocytes % 8.8 L Monocytes % 6.8 Eosinophils % 1.1 Basophils % 0.3 Nucleated Red Blood Cells % 0.0 Neutrophils # 8.4 H Lymphocytes # 0.9 Monocytes # 0.7 Eosinophils # 0.1 Basophils # 0.0 Nucleated Red Blood Cells # 0.0 Sodium Level 144 Potassium Level 3.8 Chloride Level 108 Carbon Dioxide Level 26 Anion Gap 14 Blood Urea Nitrogen 33 H Creatinine 1.72 H Glucose Level 78 # Calcium Level 8.4 Phosphorus Level 3.8 Magnesium Level 1.8 Test 02/25/17 08:26 02/25/17 11:15 02/25/17 12:32 Bedside Glucose 90 118 Blood Gas Specimen Source Blood arterial Arterial Blood Date Drawn 02/25/2017 11:20:13 AM Arterial Blood pH (Temp corrected) 7.438 Arterial Blood pCO2 (Temp correct) 33.9 L Arterial Blood pO2 (Temp corrected) 114.2 H Arterial Blood HCO3 22.4 Arterial Blood Base Excess -1.4 Arterial Blood Oxygen Saturation 97.4 Chris Test ACCEPTAB Arterial Blood Gas Puncture Site Right Radial Arterial Blood Carboxyhemoglobin 0.3 Arterial Blood Methemoglobin 0.3 Blood Gas A-a O2 Differential 59.9 H Oxyhemoglobin Percent 96.8 Total Hemoglobin 9.6 L Blood Gas Temperature 37.0 Blood Gas Actual Respiration Rate 27 Blood Gas Modality VENT - CPAP FiO2 30.0 Blood Gas Low PEEP Setting 5.0 Blood Gas Pressure Support 10 Blood Gas Notified Whom JLD Blood Gas Notified Time 02/25/2017 12:02:56 PM Medications Medications Current Medications Fentanyl (Sublimaze) 25 mcg Q10M PRN IV SEDATION; Start 02/14/17 at 12:30 Ondansetron HCl (Zofran Inj) 4 mg Q6H PRN IV NAUSEA AND/OR VOMITING; Start 02/14 at 16:00 Morphine Sulfate (morphine) 2 mg Q4H PRN IV SEVERE PAIN LEVEL 7-10 Last administered on 02/21/17 19:35; Admin Dose 2 MG; Start 02/14/17 at 16:00 Pantoprazole 40 mg 40 mg DAILY@06 IV Last administered on 02/25/17 06:29; Admin Dose 40 MG; Start 02/15/17 at 06:00 Amiodarone HCl/ Dextrose (Cordarone Iv/ D5W) 500 ml @ 0 mls/hr Q0M IV Last administered on 02/14/17 17:51; Admin Dose 33.3 MLS/HR; Start 02/14/17 at 17:00; Status Future Hold Acetaminophen (Tylenol Supp) 650 mg Q4H PRN [place] TEMP > 37C; Start 02/14/17 at 18: 00 Acetaminophen (Tylenol Liquid) 650 mg Q4H PRN PO TEMP > 37C Last administered on 02/21/17 03:16; Admin Dose 650 MG; Start 02/14/17 at 18:00 Eye Lubricant (Akwa Oint) 1 applic Q6 BOTH EYES Last administered on 02/25/17 12:35; Admin Dose 1 APPLIC; Start 02/14/17 at 18:00 Eye Lubricant 2 drop 2 drop Q6 BOTH EYES Last administered on 02/25/17 12:35; Admin Dose 2 DROP; Start 02/14/17 at 18:00 Norepinephrine 16 mg/Dextrose 500 ml @ 0 mls/hr TITRATE IV Last administered on 02/20/17 19:05; Admin Dose 11.25 MLS/HR; Start 02/14/17 at 22:00 Azithromycin 500 mg/Sodium Chloride 250 ml @ 250 mls/hr DAILY IVPB Last administered on 02/25/17 09:18; Admin Dose 250 MLS/HR; Start 02/15/17 at 10:00 Phenylephrine HCl/ Dextrose (Fritz-Syneph/D5W) 500 ml @ 75 mls/hr TITRATE IV ; Start 02/16/17 at 03:30 Miscellaneous Information 1 ea NOTE XX ; Start 02/16/17 at 11:30 Glucose (Glutose) 15 gm Q15M PRN PO DECREASED GLUCOSE; Start 02/16/17 at 11:30 Glucose (Glutose) 22.5 gm Q15M PRN PO DECREASED GLUCOSE; Start 02/16/17 at 11:30 Dextrose (D50w Syringe) 25 ml Q15M PRN IV DECREASED GLUCOSE; Start 02/16/17 at 11:30 Dextrose (D50w Syringe) 50 ml Q15M PRN IV DECREASED GLUCOSE; Start 02/16/17 at 11:30 Glucagon (Glucagen) 1 mg Q15M PRN IM DECREASED GLUCOSE; Start 02/16/17 at 11:30 Glucose 15 gm 15 gm Q15M PRN BUCCAL DECREASED GLUCOSE; Start 02/16/17 at 11:30 Piperacillin Sod/ Tazobactam Sod 50 ml @ 100 mls/hr Q6 IVPB Last administered on 02/25/17 12:34; Admin Dose 100 MLS/HR; Start 02/16/17 at 18:00 Vasopressin/ Dextrose (Vasostrict/D5W) 60 ml @ 1.8 mls/hr Q12H IV ; Start at 13:00 Aspirin (Aspirin) 81 mg DAILY GTB Last administered on 02/25/17 08:45; Admin Dose 81 MG; Start 02/18/17 at 09:00 Atorvastatin Calcium (Lipitor) 20 mg HS NGT Last administered on 02/24/17 21: 04; Admin Dose 20 MG; Start 02/17/17 at 21:00 Insulin Aspart (Novolog Insulin Pen) NOVOLOG *MILD* ALGORI... Q6 SC Last administered on 02/20/17 17:54; Admin Dose 1 UNIT; Start 02/20/17 at 00:00 IV Flush (NS 10 ml) 10 ml PRN PRN IV IV PROTOCOL; Start 02/20/17 at 16:00 Lorazepam 1 mg 1 mg Q6H PRN IV AGITATION/ANXIETY Last administered on 23:26; Admin Dose 1 MG; Start 02/20/17 at 21:40 Vancomycin HCl 750 mg/Sodium Chloride 150 ml @ 75 mls/hr Q24H IVPB Last administered on 02/25/17 12:34; Admin Dose 75 MLS/HR; Start 02/21/17 at 12:00 Propofol 100 ml @ 2.07 mls/hr Q12H IV Last administered on 02/24/17 21:07; Admin Dose 4.14 MLS/HR; Start 02/22/17 at 04:00 Fentanyl 100 ml @ 2.5 mls/hr TITRATE IV Last administered on 02/23/17 12:44; Admin Dose 5 MLS/HR; Start 02/22/17 at 11:00 Dexmedetomidine HCl/Sodium Chloride (Precedex/NS) 50 ml @ 3.45 mls/hr TITRATE IV Last administered on 02/25/17 08:50; Admin Dose 12.07 MLS/HR; Start at 12:00 Furosemide (Lasix) 40 mg BID IV Last administered on 02/25/17 08:45; Admin Dose 40 MG; Start 02/25/17 at 09:00 Amiodarone HCl 100 mg 100 mg BID NGT ; Start 02/25/17 at 21:00 Magnesium Sulfate (Magnesium Sulfate 2 Gm/50 ml) 50 ml @ 25 mls/hr ONCE ONCE IVPB ; Start 02/25/17 at 13:30; Stop 02/25/17 at 15:29 GUILHERME YATES Feb 25, 2017 14:07
[2017-02-25] MEDS: PROPOFOL 100 ML IV SCH (16:25)
[2017-02-25] MEDS: ATORVASTATIN 20 MG TAB NGT SCH (20:46)
[2017-02-26] VITALS (67 sets, daily range): BP systolic 88–182; BP diastolic 59–108; PULSE 38–120; RESP 15–43
[2017-02-26] MEDS: ARTIFICIAL TEARS 15 ML OPH BOTH EYES SCH ×4 (00:14→19:00)
[2017-02-26] MEDS: OCULAR LUBRICANT 3.5 GM OPH OINT BOTH EYES SCH ×4 (00:14→19:00)
[2017-02-26] MEDS: PIPER-TAZO 2.25 GM (PMX) 50 ML IVPB SCH ×4 (00:15→19:00)
[2017-02-26] MEDS: DEXMEDETOMIDINE HCL 200 MCG in SOD CHLORIDE 0.9% 48 ML IV SCH ×6 (00:18→12:07)
[2017-02-26] MEDS: VASOPRESSIN 60 UNIT in DEXTROSE 5% 57 ML IV SCH ×2 (01:00→12:59)
[2017-02-26] MEDS: PROPOFOL 100 ML IV SCH ×2 (04:00→16:00)
[2017-02-26 05:25] LABS: ADD SCAN DIFF NO
[2017-02-26 05:31] LABS: BASOPHILS % 0.3 % (0.0-2.0); EOSINOPHILS # 0.1 10^3/ul (0.0-0.5); EOSINOPHILS % 1.4 % (0.0-7.0); HEMATOCRIT 25.2 % (42.0-52.0); HEMOGLOBIN 8.2 g/dl (14.0-18.0); LYMPHOCYTES # 1.1 10^3/ul (0.8-2.9); LYMPHOCYTES % 11.7 % (15.0-51.0); MEAN CORPUSCULAR HEMOGLOBIN 31.7 pg (29.0-33.0); MEAN CORPUSCULAR HGB CONC 32.5 g/dl (32.0-37.0); MEAN CORPUSCULAR VOLUME 97.3 fl (82.0-101.0); MEAN PLATELET VOLUME 10.8 fl (7.4-10.4); MONOCYTE # 0.6 10^3/ul (0.3-0.9); MONOCYTES % 6.2 % (0.0-11.0); NEUTROPHIL # 7.5 10^3/ul (1.6-7.5); NEUTROPHILS % 79.7 % (39.0-77.0); PLATELET COUNT 193 10^3/UL (140-415); RED BLOOD COUNT 2.59 10^6/ul (4.70-6.10); RED CELL DISTRIBUTION WIDTH 17.3 % (11.5-14.5); WHITE BLOOD COUNT 9.4 10^3/ul (4.8-10.8)
[2017-02-26 05:58] LABS: CALCIUM 8.2 mg/dl (8.4-10.2); CREATININE 1.9 mg/dl (0.61-1.24); MAGNESIUM 2.2 mg/dl (1.7-2.5); PHOSPHORUS 3.5 mg/dl (2.5-4.9); POTASSIUM 3.6 mmol/L (3.5-5.1)
[2017-02-26] MEDS: INSULIN ASPART [NOVOLOG] 3 ML PEN SC SCH ×4 (06:00→18:00)
--- NOTE | 2017-02-26 06:58 | PN ---
Date/Time of Note Date/Time of Note DATE: 02/26/17 TIME: 06:55 Assessment/Plan VTE Prophylaxis VTE Prophylaxis Intervention: other Lines/Catheters IV Catheter Type (from Nrsg): PICC Line Central line still needed: Yes Urinary Cath still in place: No Assessment/Plan Chief Complaint/Hosp Course 1. Nonoliguric acute kidney injury with previous baseline creatinine 0.8 mg/dL. -Etiology of CROW secondary to ATN due to ischemic hypoperfusion shock. -Urinalysis was reviewed evidence of proteinuria no evidence of active sediment -Renal function has declined and last 24 hours likely due to diuretic therapy -We will de-escalate Lasix to 40 mg daily monitor renal function closely -Continue supportive care, renally dose all meds, avoid nephrotoxic 2. Anemia. -Monitor H&H levels 3. Mineral bone disorder -Monitor calcium phosphorus levels 4. Hypokalemia -Improved. continue to monitor - 5. Volume overload -Improving -Continue lasix 6. Cardiac arrest. Patient status post hypothermia protocol -Follow-up with cardiology 7. Ventilator dependent respiratory failure -Vent settings ABGs reviewed -Follow-up with pulmonary 8. Pneumothorax -Status post chest tube placement, continue to monitor 9. Sepsis status post -Cultures positive for bacteremia -Continue antibiotic regimen, off pressors -Follow-up with ID -Monitor closely 10. Mild hypernatremia Monitor Continue water flushes Problems: Subjective 24 Hr Interval Summary Free Text/Dictation Patient remains critically ill. On full ventilatory support. No other events Exam/Review of Systems Vital Signs Vitals Vital Signs Date Time Temp Pulse Resp B/P Pulse Ox O2 Delivery O2 Flow Rate FiO2 02/26/17 05:00 48 26 100 30 02/26/17 02:00 88/60 Mechanical Ventilator 02/26/17 00:00 99.0 02/23/17 19:30 3.0 Intake and Output 02/25/17 02/25/17 02/26/17 15:00 23:00 07:00 Intake Total 1139 ml 599 ml 250 ml Output Total 820 ml 691 ml 1328 ml Balance 319 ml -92 ml -1078 ml Exam HEENT: Head is normocephalic. NECK: Supple. HEART: Irregular LUNGS: Show diminished breath sounds at base. ABDOMEN: Soft, nontender to palpation without rebound or guarding. EXTREMITIES: Negative for clubbing, cyanosis. DERMATOLOGIC: No rashes. MUSCULOSKELETAL: No joint effusions, NEUROLOGIC: No change in exam. Results Result Diagram: 02/26/17 0510 02/26/17 0510 Results 24 hrs Laboratory Tests Test 02/25/17 08:26 02/25/17 11:15 02/25/17 12:32 02/25/17 18:29 Bedside Glucose 90 118 114 Blood Gas Specimen Source Blood arterial Arterial Blood Date Drawn 02/25/2017 11:20:13 AM Arterial Blood pH (Temp corrected) 7.438 Arterial Blood pCO2 (Temp correct) 33.9 L Arterial Blood pO2 (Temp corrected) 114.2 H Arterial Blood HCO3 22.4 Arterial Blood Base Excess -1.4 Arterial Blood Oxygen Saturation 97.4 Chris Test ACCEPTAB Arterial Blood Gas Puncture Site Right Radial Arterial Blood Carboxyhemoglobin 0.3 Arterial Blood Methemoglobin 0.3 Blood Gas A-a O2 Differential 59.9 H Oxyhemoglobin Percent 96.8 Total Hemoglobin 9.6 L Blood Gas Temperature 37.0 Blood Gas Actual Respiration Rate 27 Blood Gas Modality VENT - CPAP FiO2 30.0 Blood Gas Low PEEP Setting 5.0 Blood Gas Pressure Support 10 Blood Gas Notified Whom JLD Blood Gas Notified Time 02/25/2017 12:02:56 PM Test 02/26/17 00:21 02/26/17 05:10 Bedside Glucose 136 White Blood Count 9.4 Red Blood Count 2.59 L Hemoglobin 8.2 L Hematocrit 25.2 L Mean Corpuscular Volume 97.3 Mean Corpuscular Hemoglobin 31.7 Mean Corpuscular Hemoglobin Concent 32.5 Red Cell Distribution Width 17.3 H Platelet Count 193 Mean Platelet Volume 10.8 H Neutrophils % 79.7 H Lymphocytes % 11.7 L Monocytes % 6.2 Eosinophils % 1.4 Basophils % 0.3 Nucleated Red Blood Cells % 0.0 Neutrophils # 7.5 Lymphocytes # 1.1 Monocytes # 0.6 Eosinophils # 0.1 Basophils # 0.0 Nucleated Red Blood Cells # 0.0 Sodium Level 145 H Potassium Level 3.6 Chloride Level 109 Carbon Dioxide Level 25 Anion Gap 15 Blood Urea Nitrogen 32 H Creatinine 1.90 H Glucose Level 114 Calcium Level 8.2 L Phosphorus Level 3.5 Magnesium Level 2.2 Medications Medications Current Medications Fentanyl (Sublimaze) 25 mcg Q10M PRN IV SEDATION; Start 02/14/17 at 12:30 Ondansetron HCl (Zofran Inj) 4 mg Q6H PRN IV NAUSEA AND/OR VOMITING; Start 02/14 at 16:00 Morphine Sulfate (morphine) 2 mg Q4H PRN IV SEVERE PAIN LEVEL 7-10 Last administered on 02/21/17 19:35; Admin Dose 2 MG; Start 02/14/17 at 16:00 Pantoprazole 40 mg 40 mg DAILY@06 IV Last administered on 02/25/17 06:29; Admin Dose 40 MG; Start 02/15/17 at 06:00 Amiodarone HCl/ Dextrose (Cordarone Iv/ D5W) 500 ml @ 0 mls/hr Q0M IV Last administered on 02/14/17 17:51; Admin Dose 33.3 MLS/HR; Start 02/14/17 at 17:00; Status Future Hold Acetaminophen (Tylenol Supp) 650 mg Q4H PRN [place] TEMP > 37C; Start 02/14/17 at 18: 00 Acetaminophen (Tylenol Liquid) 650 mg Q4H PRN PO TEMP > 37C Last administered on 02/21/17 03:16; Admin Dose 650 MG; Start 02/14/17 at 18:00 Eye Lubricant (Akwa Oint) 1 applic Q6 BOTH EYES Last administered on 02/26/17 06:13; Admin Dose 1 APPLIC; Start 02/14/17 at 18:00 Eye Lubricant 2 drop 2 drop Q6 BOTH EYES Last administered on 02/26/17 06:13; Admin Dose 2 DROP; Start 02/14/17 at 18:00 Norepinephrine 16 mg/Dextrose 500 ml @ 0 mls/hr TITRATE IV Last administered on 02/20/17 19:05; Admin Dose 11.25 MLS/HR; Start 02/14/17 at 22:00 Azithromycin 500 mg/Sodium Chloride 250 ml @ 250 mls/hr DAILY IVPB Last administered on 02/25/17 09:18; Admin Dose 250 MLS/HR; Start 02/15/17 at 10:00 Phenylephrine HCl/ Dextrose (Fritz-Syneph/D5W) 500 ml @ 75 mls/hr TITRATE IV ; Start 02/16/17 at 03:30 Miscellaneous Information 1 ea NOTE XX ; Start 02/16/17 at 11:30 Glucose (Glutose) 15 gm Q15M PRN PO DECREASED GLUCOSE; Start 02/16/17 at 11:30 Glucose (Glutose) 22.5 gm Q15M PRN PO DECREASED GLUCOSE; Start 02/16/17 at 11:30 Dextrose (D50w Syringe) 25 ml Q15M PRN IV DECREASED GLUCOSE; Start 02/16/17 at 11:30 Dextrose (D50w Syringe) 50 ml Q15M PRN IV DECREASED GLUCOSE; Start 02/16/17 at 11:30 Glucagon (Glucagen) 1 mg Q15M PRN IM DECREASED GLUCOSE; Start 02/16/17 at 11:30 Glucose 15 gm 15 gm Q15M PRN BUCCAL DECREASED GLUCOSE; Start 02/16/17 at 11:30 Piperacillin Sod/ Tazobactam Sod 50 ml @ 100 mls/hr Q6 IVPB Last administered on 02/26/17 06:16; Admin Dose 100 MLS/HR; Start 02/16/17 at 18:00 Vasopressin/ Dextrose (Vasostrict/D5W) 60 ml @ 1.8 mls/hr Q12H IV ; Start at 13:00 Aspirin (Aspirin) 81 mg DAILY GTB Last administered on 02/25/17 08:45; Admin Dose 81 MG; Start 02/18/17 at 09:00 Atorvastatin Calcium (Lipitor) 20 mg HS NGT Last administered on 02/25/17 20: 46; Admin Dose 20 MG; Start 02/17/17 at 21:00 Insulin Aspart (Novolog Insulin Pen) NOVOLOG *MILD* ALGORI... Q6 SC Last administered on 02/20/17 17:54; Admin Dose 1 UNIT; Start 02/20/17 at 00:00 IV Flush (NS 10 ml) 10 ml PRN PRN IV IV PROTOCOL; Start 02/20/17 at 16:00 Lorazepam 1 mg 1 mg Q6H PRN IV AGITATION/ANXIETY Last administered on 23:26; Admin Dose 1 MG; Start 02/20/17 at 21:40 Vancomycin HCl 750 mg/Sodium Chloride 150 ml @ 75 mls/hr Q24H IVPB Last administered on 02/25/17 12:34; Admin Dose 75 MLS/HR; Start 02/21/17 at 12:00 Propofol 100 ml @ 2.07 mls/hr Q12H IV Last administered on 02/25/17 16:25; Admin Dose 8.28 MLS/HR; Start 02/22/17 at 04:00 Fentanyl 100 ml @ 2.5 mls/hr TITRATE IV Last administered on 02/23/17 12:44; Admin Dose 5 MLS/HR; Start 02/22/17 at 11:00 Dexmedetomidine HCl/Sodium Chloride (Precedex/NS) 50 ml @ 3.45 mls/hr TITRATE IV Last administered on 02/26/17 06:16; Admin Dose 24.15 MLS/HR; Start at 12:00 Furosemide (Lasix) 40 mg BID IV Last administered on 02/25/17 20:46; Admin Dose 40 MG; Start 02/25/17 at 09:00 Amiodarone HCl (Cordarone) 100 mg BID NGT ; Start 02/25/17 at 21:00 Miscellaneous Information (*Rx Drug Level Order Reminder*) VANCO TROUGH @ 1, 100 ON... ONCE ONCE XX ; Start 02/26/17 at 11:00; Stop 02/26/17 at 11:01 JENSEN OLIVIER DO Feb 26, 2017 06:58
[2017-02-26] MEDS: FUROSEMIDE 40 MG INJ IV SCH ×2 (07:30→19:01)
[2017-02-26 07:55] LABS: AADO2 Arterial 49.9 mmHg (7.0-24.0); Allen Test ACCEPTAB; Arterial Base Excess -0.3 mmol/L (-3.0-3); Arterial COHb 0.3 % (0.0-3.0); Arterial Fraction of Oxyhgb 97.3 % (93.0-99.0); Arterial HCO3 21.9 mmol/L (22.0-26.0); Arterial MetHb 0.4 % (0.0-1.5); Arterial Total Hemglobin 8.6 g/dl (12.0-18.0); MODE VENT - AC
[2017-02-26] MEDS: ASPIRIN 81 MG TAB GTB SCH (08:52)
[2017-02-26] MEDS: AMIODARONE 200 MG TAB NGT SCH (08:52)
[2017-02-26] MEDS: AZITHROMYCIN 500 MG in SOD CHLORIDE 0.9% 250 ML IVPB SCH (09:02)
--- NOTE | 2017-02-26 10:13 | RADRPT ---
PROCEDURE: XR Chest. CLINICAL INDICATION: CHF TECHNIQUE: An AP view of the chest was obtained. COMPARISON: Chest x-ray dated 02/25/2017 FINDINGS: The endotracheal tube tip is approximately 2.6 cm above the agustín. The tip of the enteric tube ex tends below the left diaphragm. There is a left upper extremity PICC line with tip deep in the righ t atrium. A left chest tube is in place. There are diffuse bilateral interstitial opacities with small bilateral pleural effusions. There is right apical pleural capping. No pneumothorax is seen. The cardiomediastinal silhouette is within normal limits for size. Calcifications are seen within the aortic arch. The osseous structures demo nstrate multiple left-sided rib fractures. IMPRESSION: 1. Diffuse bilateral interstitial opacities may reflect interstitial edema and / or pneumonia. Ove rall, no significant interval change. 2. Small bilateral pleural effusions, also unchanged. 3. Aortic atherosclerosis. 4. Tubes and lines, as described above. RPTAT: .Latisha Denney MD, MD Date Time Electronically viewed and signed by .Latisha Denney MD, on 02/26/2017 10:12 .G/
--- NOTE | 2017-02-26 10:58 | CONS ---
Date/Time of Note Date/Time of Note DATE: 02/26/17 TIME: 10:56 Consult Date/Type/Reason Admit Date/Time Feb 14, 2017 at 16:02 Type of Consultation: Pulmonary ICU Subjective Patient remains on Precedex. Bradycardia noted this morning. Blood pressure remains stable. Opens eyes follows simple commands per nursing staff. Minimal secretions. Objective Vital Signs Date Time Temp Pulse Resp B/P Pulse Ox O2 Delivery O2 Flow Rate FiO2 02/26/17 10:15 58 19 94/62 100 Mechanical Ventilator 02/26/17 08:30 97.6 02/26/17 08:22 30 02/23/17 19:30 3.0 Intake and Output 02/25/17 02/25/17 02/26/17 15:00 23:00 07:00 Intake Total 1139 ml 649 ml 664.84 ml Output Total 1020 ml 691 ml 1668 ml Balance 119 ml -42 ml -1003.16 ml Exam PHYSICAL EXAMINATION GENERAL: Elderly gentleman, intubated on mechanical ventilation, VITAL SIGNS: see below. HEENT: Pupils equal, round, and reactive to light. CARDIAC: S1, S2, 1/6 systolic ejection murmur CHEST: Diminished air entry bilaterally. ABDOMEN: Mildly distended. Bowel sounds present no guarding or rebound EXTREMITIES: No cyanosis, clubbing edema +1 NEUROLOGIC: Generalized weakness Results/Medications Result Diagram: 02/26/17 0510 02/26/17 0510 Results 24 hrs Laboratory Tests Test 02/25/17 11:15 02/25/17 12:32 02/25/17 18:29 02/26/17 00:21 Blood Gas Specimen Source Blood arterial Arterial Blood Date Drawn 02/25/2017 11:20:13 AM Arterial Blood pH (Temp corrected) 7.438 Arterial Blood pCO2 (Temp correct) 33.9 L Arterial Blood pO2 (Temp corrected) 114.2 H Arterial Blood HCO3 22.4 Arterial Blood Base Excess -1.4 Arterial Blood Oxygen Saturation 97.4 Chris Test ACCEPTAB Arterial Blood Gas Puncture Site Right Radial Arterial Blood Carboxyhemoglobin 0.3 Arterial Blood Methemoglobin 0.3 Blood Gas A-a O2 Differential 59.9 H Oxyhemoglobin Percent 96.8 Total Hemoglobin 9.6 L Blood Gas Temperature 37.0 Blood Gas Actual Respiration Rate 27 Blood Gas Modality VENT - CPAP FiO2 30.0 Blood Gas Low PEEP Setting 5.0 Blood Gas Pressure Support 10 Blood Gas Notified Whom JLD Blood Gas Notified Time 02/25/2017 12:02:56 PM Bedside Glucose 118 114 136 Test 02/26/17 05:10 02/26/17 07:00 02/26/17 09:13 White Blood Count 9.4 Red Blood Count 2.59 L Hemoglobin 8.2 L Hematocrit 25.2 L Mean Corpuscular Volume 97.3 Mean Corpuscular Hemoglobin 31.7 Mean Corpuscular Hemoglobin Concent 32.5 Red Cell Distribution Width 17.3 H Platelet Count 193 Mean Platelet Volume 10.8 H Neutrophils % 79.7 H Lymphocytes % 11.7 L Monocytes % 6.2 Eosinophils % 1.4 Basophils % 0.3 Nucleated Red Blood Cells % 0.0 Neutrophils # 7.5 Lymphocytes # 1.1 Monocytes # 0.6 Eosinophils # 0.1 Basophils # 0.0 Nucleated Red Blood Cells # 0.0 Sodium Level 145 H Potassium Level 3.6 Chloride Level 109 Carbon Dioxide Level 25 Anion Gap 15 Blood Urea Nitrogen 32 H Creatinine 1.90 H Glucose Level 114 Calcium Level 8.2 L Phosphorus Level 3.5 Magnesium Level 2.2 Blood Gas Specimen Source Blood arterial Arterial Blood Date Drawn 02/26/2017 7:10:20 AM Arterial Blood pH (Temp corrected) 7.528 H Arterial Blood pCO2 (Temp correct) 26.9 L Arterial Blood pO2 (Temp corrected) 132.4 H Arterial Blood HCO3 21.9 L Arterial Blood Base Excess -0.3 Arterial Blood Oxygen Saturation 98.0 Chris Test ACCEPTAB Arterial Blood Gas Puncture Site Right Radial Arterial Blood Carboxyhemoglobin 0.3 Arterial Blood Methemoglobin 0.4 Blood Gas A-a O2 Differential 49.9 H Oxyhemoglobin Percent 97.3 Total Hemoglobin 8.6 L Blood Gas Temperature 37.0 Blood Gas Respiration Rate 26.0 Blood Gas Actual Respiration Rate 26 Blood Gas Modality VENT - AC FiO2 30.0 Blood Gas Tidal Volume 500.0 Blood Gas Low PEEP Setting 5.0 Blood Gas Notified Whom JLD Blood Gas Notified Time 02/26/2017 7:55:01 AM Bedside Glucose 136 Medications Current Medications Fentanyl (Sublimaze) 25 mcg Q10M PRN IV SEDATION; Start 02/14/17 at 12:30 Ondansetron HCl (Zofran Inj) 4 mg Q6H PRN IV NAUSEA AND/OR VOMITING; Start 02/14 at 16:00 Morphine Sulfate (morphine) 2 mg Q4H PRN IV SEVERE PAIN LEVEL 7-10 Last administered on 02/21/17 19:35; Admin Dose 2 MG; Start 02/14/17 at 16:00 Pantoprazole 40 mg 40 mg DAILY@06 IV Last administered on 02/25/17 06:29; Admin Dose 40 MG; Start 02/15/17 at 06:00 Amiodarone HCl/ Dextrose (Cordarone Iv/ D5W) 500 ml @ 0 mls/hr Q0M IV Last administered on 02/14/17 17:51; Admin Dose 33.3 MLS/HR; Start 02/14/17 at 17:00; Status Future Hold Acetaminophen (Tylenol Supp) 650 mg Q4H PRN [place] TEMP > 37C; Start 02/14/17 at 18: 00 Acetaminophen (Tylenol Liquid) 650 mg Q4H PRN PO TEMP > 37C Last administered on 02/21/17 03:16; Admin Dose 650 MG; Start 02/14/17 at 18:00 Eye Lubricant (Akwa Oint) 1 applic Q6 BOTH EYES Last administered on 02/26/17 06:13; Admin Dose 1 APPLIC; Start 02/14/17 at 18:00 Eye Lubricant 2 drop 2 drop Q6 BOTH EYES Last administered on 02/26/17 06:13; Admin Dose 2 DROP; Start 02/14/17 at 18:00 Norepinephrine 16 mg/Dextrose 500 ml @ 0 mls/hr TITRATE IV Last administered on 02/20/17 19:05; Admin Dose 11.25 MLS/HR; Start 02/14/17 at 22:00 Azithromycin 500 mg/Sodium Chloride 250 ml @ 250 mls/hr DAILY IVPB Last administered on 02/26/17 09:02; Admin Dose 250 MLS/HR; Start 02/15/17 at 10:00 Phenylephrine HCl/ Dextrose (Fritz-Syneph/D5W) 500 ml @ 75 mls/hr TITRATE IV ; Start 02/16/17 at 03:30 Miscellaneous Information 1 ea NOTE XX ; Start 02/16/17 at 11:30 Glucose (Glutose) 15 gm Q15M PRN PO DECREASED GLUCOSE; Start 02/16/17 at 11:30 Glucose (Glutose) 22.5 gm Q15M PRN PO DECREASED GLUCOSE; Start 02/16/17 at 11:30 Dextrose (D50w Syringe) 25 ml Q15M PRN IV DECREASED GLUCOSE; Start 02/16/17 at 11:30 Dextrose (D50w Syringe) 50 ml Q15M PRN IV DECREASED GLUCOSE; Start 02/16/17 at 11:30 Glucagon (Glucagen) 1 mg Q15M PRN IM DECREASED GLUCOSE; Start 02/16/17 at 11:30 Glucose 15 gm 15 gm Q15M PRN BUCCAL DECREASED GLUCOSE; Start 02/16/17 at 11:30 Piperacillin Sod/ Tazobactam Sod 50 ml @ 100 mls/hr Q6 IVPB Last administered on 02/26/17 06:16; Admin Dose 100 MLS/HR; Start 02/16/17 at 18:00 Vasopressin/ Dextrose (Vasostrict/D5W) 60 ml @ 1.8 mls/hr Q12H IV ; Start at 13:00 Aspirin (Aspirin) 81 mg DAILY GTB Last administered on 02/26/17 08:52; Admin Dose 81 MG; Start 02/18/17 at 09:00 Atorvastatin Calcium (Lipitor) 20 mg HS NGT Last administered on 02/25/17 20: 46; Admin Dose 20 MG; Start 02/17/17 at 21:00 Insulin Aspart (Novolog Insulin Pen) NOVOLOG *MILD* ALGORI... Q6 SC Last administered on 02/20/17 17:54; Admin Dose 1 UNIT; Start 02/20/17 at 00:00 IV Flush (NS 10 ml) 10 ml PRN PRN IV IV PROTOCOL; Start 02/20/17 at 16:00 Lorazepam 1 mg 1 mg Q6H PRN IV AGITATION/ANXIETY Last administered on 23:26; Admin Dose 1 MG; Start 02/20/17 at 21:40 Vancomycin HCl 750 mg/Sodium Chloride 150 ml @ 75 mls/hr Q24H IVPB Last administered on 02/25/17 12:34; Admin Dose 75 MLS/HR; Start 02/21/17 at 12:00 Propofol 100 ml @ 2.07 mls/hr Q12H IV Last administered on 02/25/17 16:25; Admin Dose 8.28 MLS/HR; Start 02/22/17 at 04:00 Fentanyl 100 ml @ 2.5 mls/hr TITRATE IV Last administered on 02/23/17t 12:44; Admin Dose 5 MLS/HR; Start 02/22/17 at 11:00 Dexmedetomidine HCl/Sodium Chloride (Precedex/NS) 50 ml @ 3.45 mls/hr TITRATE IV Last administered on 02/26/17 09:02; Admin Dose 24.15 MLS/HR; Start at 12:00 Amiodarone HCl (Cordarone) 100 mg BID NGT ; Start 02/25/17 at 21:00 Miscellaneous Information (*Rx Drug Level Order Reminder*) VANCO TROUGH @ 1, 100 ON... ONCE ONCE XX ; Start 02/26/17 at 11:00; Stop 02/26/17 at 11:01 Furosemide (Lasix) 40 mg DAILY@06 IV ; Start 02/26/17 at 07:30 Assessment/Plan Chief Complaint/Hosp Course IMP: 1. Cardiopulmonary Arrest: query primary cardiac event leading to respiratory failure and multilobar aspiration pneumonia 2. Respiratory Failure/Vent 3. Multifocal pneumonia--likely aspiration 4. s/p VF 5. ARF 6. Barotrauma--s/p CPR 7. Hypoglycemia 8. Septic shock secondary to above 9. Encephalopathy possibly toxic metabolic. Slowly improving on Precedex. RECS: 1. CPAP weaning trial this morning this patient is more alert 2. Pulmonary toilet 3. Continue tube feeding if tolerated 4. Levophed to MAP > 65 mm Hg; 5. Monitor H&H, transfusion packed red blood cells if continues to drop. 6. DVT and GI prophylaxis. 7. Trial of Precedex for agitation. Discussed with staff at bedside 40 min cc time Problems: CAS LIMA MD, [facility] Feb 26, 2017 10:58
--- NOTE | 2017-02-26 11:55 | CONS ---
Date/Time of Note Date/Time of Note DATE: 02/26/17 TIME: 11:54 Assessment/Plan Assessment/Plan Additional Assessment/Plan Cardiopulmonary arrest Septic shock Vent dependent respiratory failure Cardiomyopathy with ejection fraction 20% Non-ST elevation [place] Acute kidney injury Acute blood loss anemia Paroxysmal atrial fibrillation -Patient status post hypothermia protocol. -Continue aspirin and statin therapy, no beta-naida given hypotension and bradycardia as well as no BERTHA inhibitor given acute kidney injury. -Patient with bradycardia, will DC amiodarone at the current time. Consultation Date/Type/Reason Admit Date/Time Feb 14, 2017 at 16:02 Type of Consultation: cv 24 HR Interval Summary Free Text/Dictation Patient more awake today, undergoing CPAP trials Exam/Review of Systems Vital Signs Vitals Vital Signs Date Time Temp Pulse Resp B/P Pulse Ox O2 Delivery O2 Flow Rate FiO2 02/26/17 10:15 58 19 94/62 100 Mechanical Ventilator 02/26/17 08:30 97.6 02/26/17 08:22 30 02/23/17 19:30 3.0 Intake and Output 02/25/17 02/25/17 02/26/17 15:00 23:00 07:00 Intake Total 1139 ml 649 ml 664.84 ml Output Total 1020 ml 691 ml 1668 ml Balance 119 ml -42 ml -1003.16 ml Exam Awake, no apparent distress, remains intubated Head: normocephalic ENMT: intubated Respiratory: other (Coarse breath sounds bilaterally, no wheezing) Cardiovascular: other (S1-S2 heard), regular rate and rhythm Gastrointestinal: bowel sounds, non-tender, soft Extremities: edema (Trace) Results Result Diagram: 02/26/17 0510 02/26/17 0510 Results 24 hrs Laboratory Tests Test 02/25/17 12:32 02/25/17 18:29 02/26/17 00:21 02/26/17 05:10 Bedside Glucose 118 114 136 White Blood Count 9.4 Red Blood Count 2.59 L Hemoglobin 8.2 L Hematocrit 25.2 L Mean Corpuscular Volume 97.3 Mean Corpuscular Hemoglobin 31.7 Mean Corpuscular Hemoglobin Concent 32.5 Red Cell Distribution Width 17.3 H Platelet Count 193 Mean Platelet Volume 10.8 H Neutrophils % 79.7 H Lymphocytes % 11.7 L Monocytes % 6.2 Eosinophils % 1.4 Basophils % 0.3 Nucleated Red Blood Cells % 0.0 Neutrophils # 7.5 Lymphocytes # 1.1 Monocytes # 0.6 Eosinophils # 0.1 Basophils # 0.0 Nucleated Red Blood Cells # 0.0 Sodium Level 145 H Potassium Level 3.6 Chloride Level 109 Carbon Dioxide Level 25 Anion Gap 15 Blood Urea Nitrogen 32 H Creatinine 1.90 H Glucose Level 114 Calcium Level 8.2 L Phosphorus Level 3.5 Magnesium Level 2.2 Test 02/26/17 07:00 02/26/17 09:13 02/26/17 11:00 Blood Gas Specimen Source Blood arterial Arterial Blood Date Drawn 02/26/2017 7:10:20 AM Arterial Blood pH (Temp corrected) 7.528 H Arterial Blood pCO2 (Temp correct) 26.9 L Arterial Blood pO2 (Temp corrected) 132.4 H Arterial Blood HCO3 21.9 L Arterial Blood Base Excess -0.3 Arterial Blood Oxygen Saturation 98.0 Chris Test ACCEPTAB Arterial Blood Gas Puncture Site Right Radial Arterial Blood Carboxyhemoglobin 0.3 Arterial Blood Methemoglobin 0.4 Blood Gas A-a O2 Differential 49.9 H Oxyhemoglobin Percent 97.3 Total Hemoglobin 8.6 L Blood Gas Temperature 37.0 Blood Gas Respiration Rate 26.0 Blood Gas Actual Respiration Rate 26 Blood Gas Modality VENT - AC FiO2 30.0 Blood Gas Tidal Volume 500.0 Blood Gas Low PEEP Setting 5.0 Blood Gas Notified Whom JLD Blood Gas Notified Time 02/26/2017 7:55:01 AM Bedside Glucose 136 Vancomycin Level Trough 16.8 Medications Medications Current Medications Fentanyl (Sublimaze) 25 mcg Q10M PRN IV SEDATION; Start 02/14/17 at 12:30 Ondansetron HCl (Zofran Inj) 4 mg Q6H PRN IV NAUSEA AND/OR VOMITING; Start 02/14 at 16:00 Morphine Sulfate (morphine) 2 mg Q4H PRN IV SEVERE PAIN LEVEL 7-10 Last administered on 02/21/17 19:35; Admin Dose 2 MG; Start 02/14/17 at 16:00 Pantoprazole 40 mg 40 mg DAILY@06 IV Last administered on 02/25/17 06:29; Admin Dose 40 MG; Start 02/15/17 at 06:00 Amiodarone HCl/ Dextrose (Cordarone Iv/ D5W) 500 ml @ 0 mls/hr Q0M IV Last administered on 02/14/17 17:51; Admin Dose 33.3 MLS/HR; Start 02/14/17 at 17:00; Status Future Hold Acetaminophen (Tylenol Supp) 650 mg Q4H PRN [place] TEMP > 37C; Start 02/14/17 at 18: 00 Acetaminophen (Tylenol Liquid) 650 mg Q4H PRN PO TEMP > 37C Last administered on 02/21/17 03:16; Admin Dose 650 MG; Start 02/14/17 at 18:00 Eye Lubricant (Akwa Oint) 1 applic Q6 BOTH EYES Last administered on 02/26/17 06:13; Admin Dose 1 APPLIC; Start 02/14/17 at 18:00 Eye Lubricant 2 drop 2 drop Q6 BOTH EYES Last administered on 02/26/17 06:13; Admin Dose 2 DROP; Start 02/14/17 at 18:00 Norepinephrine 16 mg/Dextrose 500 ml @ 0 mls/hr TITRATE IV Last administered on 02/20/17 19:05; Admin Dose 11.25 MLS/HR; Start 02/14/17 at 22:00 Azithromycin 500 mg/Sodium Chloride 250 ml @ 250 mls/hr DAILY IVPB Last administered on 02/26/17 09:02; Admin Dose 250 MLS/HR; Start 02/15/17 at 10:00 Phenylephrine HCl/ Dextrose (Fritz-Syneph/D5W) 500 ml @ 75 mls/hr TITRATE IV ; Start 02/16/17 at 03:30 Miscellaneous Information 1 ea NOTE XX ; Start 02/16/17 at 11:30 Glucose (Glutose) 15 gm Q15M PRN PO DECREASED GLUCOSE; Start 02/16/17 at 11:30 Glucose (Glutose) 22.5 gm Q15M PRN PO DECREASED GLUCOSE; Start 02/16/17 at 11:30 Dextrose (D50w Syringe) 25 ml Q15M PRN IV DECREASED GLUCOSE; Start 02/16/17 at 11:30 Dextrose (D50w Syringe) 50 ml Q15M PRN IV DECREASED GLUCOSE; Start 02/16/17 at 11:30 Glucagon (Glucagen) 1 mg Q15M PRN IM DECREASED GLUCOSE; Start 02/16/17 at 11:30 Glucose 15 gm 15 gm Q15M PRN BUCCAL DECREASED GLUCOSE; Start 02/16/17 at 11:30 Piperacillin Sod/ Tazobactam Sod 50 ml @ 100 mls/hr Q6 IVPB Last administered on 02/26/17 06:16; Admin Dose 100 MLS/HR; Start 02/16/17 at 18:00 Vasopressin/ Dextrose (Vasostrict/D5W) 60 ml @ 1.8 mls/hr Q12H IV ; Start at 13:00 Aspirin (Aspirin) 81 mg DAILY GTB Last administered on 02/26/17 08:52; Admin Dose 81 MG; Start 02/18/17 at 09:00 Atorvastatin Calcium (Lipitor) 20 mg HS NGT Last administered on 02/25/17 20: 46; Admin Dose 20 MG; Start 02/17/17 at 21:00 Insulin Aspart (Novolog Insulin Pen) NOVOLOG *MILD* ALGORI... Q6 SC Last administered on 02/20/17 17:54; Admin Dose 1 UNIT; Start 02/20/17 at 00:00 IV Flush (NS 10 ml) 10 ml PRN PRN IV IV PROTOCOL; Start 02/20/17 at 16:00 Lorazepam 1 mg 1 mg Q6H PRN IV AGITATION/ANXIETY Last administered on 23:26; Admin Dose 1 MG; Start 02/20/17 at 21:40 Vancomycin HCl 750 mg/Sodium Chloride 150 ml @ 75 mls/hr Q24H IVPB Last administered on 02/25/17 12:34; Admin Dose 75 MLS/HR; Start 02/21/17 at 12:00 Propofol 100 ml @ 2.07 mls/hr Q12H IV Last administered on 02/25/17 16:25; Admin Dose 8.28 MLS/HR; Start 02/22/17 at 04:00 Fentanyl 100 ml @ 2.5 mls/hr TITRATE IV Last administered on 02/23/17 12:44; Admin Dose 5 MLS/HR; Start 02/22/17 at 11:00 Dexmedetomidine HCl/Sodium Chloride (Precedex/NS) 50 ml @ 3.45 mls/hr TITRATE IV Last administered on 02/26/17 09:02; Admin Dose 24.15 MLS/HR; Start at 12:00 Amiodarone HCl (Cordarone) 100 mg BID NGT ; Start 02/25/17 at 21:00 Furosemide (Lasix) 40 mg DAILY@06 IV ; Start 02/26/17 at 07:30 Casey Schuler DO Feb 26, 2017 11:55
[2017-02-26 12:28] LABS: AADO2 Arterial 74.6 mmHg (7.0-24.0); Allen Test ACCEPTAB; Arterial Base Excess -0.5 mmol/L (-3.0-3); Arterial COHb 0.3 % (0.0-3.0); Arterial Fraction of Oxyhgb 95.8 % (93.0-99.0); Arterial HCO3 23.6 mmol/L (22.0-26.0); Arterial MetHb 0.4 % (0.0-1.5); Arterial Total Hemglobin 9.7 g/dl (12.0-18.0); Blood Gas PS 10; MODE VENT - CPAP
[2017-02-26] MEDS: VANCOMYCIN 750 MG in SOD CHLORIDE 0.9% 150 ML IVPB SCH (12:30)
[2017-02-26] MEDS: morphine 2 MG INJ IV PRN ×3 (14:00→19:02)
--- NOTE | 2017-02-26 15:29 | PN ---
Date/Time of Note Date/Time of Note DATE: 02/26/17 TIME: 15:26 Assessment/Plan VTE Prophylaxis VTE Prophylaxis Intervention: SCD's Lines/Catheters Urinary Cath still in place: No Assessment/Plan Chief Complaint/Hosp Course 1. S/p Cardiac arrest secondary to V-fib status post ACLS with defibrillation and return of circulation -Status post hypothermia protocol / Cardiology following / patient did not meet criteria for emergent cardiac catheterization per digital account supervisor on-call on arrival 2. Vent dependent resp failure secondary to cardiac arrest-extubated today -Continue vent management / Pulmonology consultation appreciated 3. L sided Rib fractures and Pneumothorax secondary to repeated chest compressions - status post chest tube placement / Pulm managing 4. Sepsis with bilateral Pneumonia likely with a component of aspiration / Coagulase neg bacteremia / UTI - Continue current abx 5. Acute on Chronic Normocytic anemia with thrombocytopenia likely 2/2 Iron deficiency -Chronic Anemia is likely worsened by blood loss, which is likely precipitated by per thrombocytopenia 6. Acute kidney disease on CKD secondary to cardiac arrest -Monitor, nephrology following 7. Reactive Hyperglycemia -Normal BG levels on regular tube feeds / d/c SSI 8. 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 Right hip pain X-ray right hip Prophylaxis: SCD's Problems: Subjective 24 Hr Interval Summary Musculoskeletal: bone/joint pain (Right hip) Exam/Review of Systems Vital Signs Vitals Vital Signs Date Time Temp Pulse Resp B/P Pulse Ox O2 Delivery O2 Flow Rate FiO2 02/26/17 12:00 61 02/26/17 10:15 19 94/62 100 Mechanical Ventilator 02/26/17 08:30 97.6 02/26/17 08:22 30 02/23/17 19:30 3.0 Intake and Output 02/25/17 02/25/17 02/26/17 14:59 22:59 06:59 Intake Total 1015 ml 773 ml 756.56 ml Output Total 1230 ml 680 ml 1712 ml Balance -215 ml 93 ml -955.44 ml Exam Constitutional: alert Respiratory: clear to auscultation Cardiovascular: regular rate and rhythm Gastrointestinal: soft, No distended Musculoskeletal: nl extremities to inspection Results Result Diagram: 02/26/17 0510 02/26/17 0510 Results 24 hrs Laboratory Tests Test 02/25/17 18:29 7/19/17 00:21 02/26/17 05:10 02/26/17 07:00 Bedside Glucose 114 136 White Blood Count 9.4 Red Blood Count 2.59 L Hemoglobin 8.2 L Hematocrit 25.2 L Mean Corpuscular Volume 97.3 Mean Corpuscular Hemoglobin 31.7 Mean Corpuscular Hemoglobin Concent 32.5 Red Cell Distribution Width 17.3 H Platelet Count 193 Mean Platelet Volume 10.8 H Neutrophils % 79.7 H Lymphocytes % 11.7 L Monocytes % 6.2 Eosinophils % 1.4 Basophils % 0.3 Nucleated Red Blood Cells % 0.0 Neutrophils # 7.5 Lymphocytes # 1.1 Monocytes # 0.6 Eosinophils # 0.1 Basophils # 0.0 Nucleated Red Blood Cells # 0.0 Sodium Level 145 H Potassium Level 3.6 Chloride Level 109 Carbon Dioxide Level 25 Anion Gap 15 Blood Urea Nitrogen 32 H Creatinine 1.90 H Glucose Level 114 Calcium Level 8.2 L Phosphorus Level 3.5 Magnesium Level 2.2 Blood Gas Specimen Source Blood arterial Arterial Blood Date Drawn 02/26/2017 7:10:20 AM Arterial Blood pH (Temp corrected) 7.528 H Arterial Blood pCO2 (Temp correct) 26.9 L Arterial Blood pO2 (Temp corrected) 132.4 H Arterial Blood HCO3 21.9 L Arterial Blood Base Excess -0.3 Arterial Blood Oxygen Saturation 98.0 Chris Test ACCEPTAB Arterial Blood Gas Puncture Site Right Radial Arterial Blood Carboxyhemoglobin 0.3 Arterial Blood Methemoglobin 0.4 Blood Gas A-a O2 Differential 49.9 H Oxyhemoglobin Percent 97.3 Total Hemoglobin 8.6 L Blood Gas Temperature 37.0 Blood Gas Respiration Rate 26.0 Blood Gas Actual Respiration Rate 26 Blood Gas Modality VENT - AC FiO2 30.0 Blood Gas Tidal Volume 500.0 Blood Gas Low PEEP Setting 5.0 Blood Gas Notified Whom JLD Blood Gas Notified Time 02/26/2017 7:55:01 AM Test 02/26/17 09:13 02/26/17 11:00 02/26/17 11:50 02/26/17 12:42 Bedside Glucose 136 111 Vancomycin Level Trough 16.8 Blood Gas Specimen Source Blood arterial Arterial Blood Date Drawn 02/26/2017 12:05:07 PM Arterial Blood pH (Temp corrected) 7.428 Arterial Blood pCO2 (Temp correct) 36.6 Arterial Blood pO2 (Temp corrected) 96.3 H Arterial Blood HCO3 23.6 Arterial Blood Base Excess -0.5 Arterial Blood Oxygen Saturation 96.5 Chris Test ACCEPTAB Arterial Blood Gas Puncture Site Right Radial Arterial Blood Carboxyhemoglobin 0.3 Arterial Blood Methemoglobin 0.4 Blood Gas A-a O2 Differential 74.6 H Oxyhemoglobin Percent 95.8 Total Hemoglobin 9.7 L Blood Gas Temperature 37.0 Blood Gas Actual Respiration Rate 20 Blood Gas Modality VENT - CPAP FiO2 30.0 Blood Gas Low PEEP Setting 5.0 Blood Gas Pressure Support 10 Blood Gas Notified Whom JLD Blood Gas Notified Time 02/26/2017 12:27:50 PM Medications Medications Current Medications Fentanyl (Sublimaze) 25 mcg Q10M PRN IV SEDATION; Start 02/14/17 at 12:30 Ondansetron HCl (Zofran Inj) 4 mg Q6H PRN IV NAUSEA AND/OR VOMITING; Start 02/14 at 16:00 Morphine Sulfate (morphine) 2 mg Q4H PRN IV SEVERE PAIN LEVEL 7-10 Last administered on 02/21/17 19:35; Admin Dose 2 MG; Start 02/14/17 at 16:00 Pantoprazole (Protonix Iv) 40 mg DAILY@06 IV Last administered on 02/25/17 06: 29; Admin Dose 40 MG; Start 02/15/17 at 06:00 Acetaminophen (Tylenol Supp) 650 mg Q4H PRN [place] TEMP > 37C; Start 02/14/17 at 18: 00 Acetaminophen (Tylenol Liquid) 650 mg Q4H PRN PO TEMP > 37C Last administered on 02/21/17 03:16; Admin Dose 650 MG; Start 02/14/17 at 18:00 Eye Lubricant (Akwa Oint) 1 applic Q6 BOTH EYES Last administered on 02/26/17 12:07; Admin Dose 1 APPLIC; Start 02/14/17 at 18:00 Eye Lubricant 2 drop 2 drop Q6 BOTH EYES Last administered on 02/26/17 12:07; Admin Dose 2 DROP; Start 02/14/17 at 18:00 Norepinephrine 16 mg/Dextrose 500 ml @ 0 mls/hr TITRATE IV Last administered on 02/20/17 19:05; Admin Dose 11.25 MLS/HR; Start 02/14/17 at 22:00 Azithromycin 500 mg/Sodium Chloride 250 ml @ 250 mls/hr DAILY IVPB Last administered on 02/26/17 09:02; Admin Dose 250 MLS/HR; Start 02/15/17 at 10:00 Phenylephrine HCl/ Dextrose (Fritz-Syneph/D5W) 500 ml @ 75 mls/hr TITRATE IV ; Start 02/16/17 at 03:30 Miscellaneous Information 1 ea NOTE XX ; Start 02/16/17 at 11:30 Glucose (Glutose) 15 gm Q15M PRN PO DECREASED GLUCOSE; Start 02/16/17 at 11:30 Glucose (Glutose) 22.5 gm Q15M PRN PO DECREASED GLUCOSE; Start 02/16/17 at 11:30 Dextrose (D50w Syringe) 25 ml Q15M PRN IV DECREASED GLUCOSE; Start 02/16/17 at 11:30 Dextrose (D50w Syringe) 50 ml Q15M PRN IV DECREASED GLUCOSE; Start 02/16/17 at 11:30 Glucagon (Glucagen) 1 mg Q15M PRN IM DECREASED GLUCOSE; Start 02/16/17 at 11:30 Glucose 15 gm 15 gm Q15M PRN BUCCAL DECREASED GLUCOSE; Start 02/16/17 at 11:30 Piperacillin Sod/ Tazobactam Sod 50 ml @ 100 mls/hr Q6 IVPB Last administered on 02/26/17 12:30; Admin Dose 100 MLS/HR; Start 02/16/17 at 18:00 Vasopressin/ Dextrose (Vasostrict/D5W) 60 ml @ 1.8 mls/hr Q12H IV ; Start at 13:00 Aspirin (Aspirin) 81 mg DAILY GTB Last administered on 02/26/17 08:52; Admin Dose 81 MG; Start 02/18/17 at 09:00 Atorvastatin Calcium (Lipitor) 20 mg HS NGT Last administered on 02/25/17 20: 46; Admin Dose 20 MG; Start 02/17/17 at 21:00 Insulin Aspart (Novolog Insulin Pen) NOVOLOG *MILD* ALGORI... Q6 SC Last administered on 02/20/17 17:54; Admin Dose 1 UNIT; Start 02/20/17 at 00:00 IV Flush (NS 10 ml) 10 ml PRN PRN IV IV PROTOCOL; Start 02/20/17 at 16:00 Lorazepam 1 mg 1 mg Q6H PRN IV AGITATION/ANXIETY Last administered on 23:26; Admin Dose 1 MG; Start 02/20/17 at 21:40 Propofol 100 ml @ 2.07 mls/hr Q12H IV Last administered on 02/25/17 16:25; Admin Dose 8.28 MLS/HR; Start 02/22/17 at 04:00 Fentanyl 100 ml @ 2.5 mls/hr TITRATE IV Last administered on 02/23/17 12:44; Admin Dose 5 MLS/HR; Start 02/22/17 at 11:00 Dexmedetomidine HCl/Sodium Chloride (Precedex/NS) 50 ml @ 3.45 mls/hr TITRATE IV Last administered on 02/26/17 12:07; Admin Dose 24.15 MLS/HR; Start at 12:00 Furosemide 40 mg 40 mg DAILY@06 IV ; Start 02/26/17 at 07:30 Vancomycin HCl/ Sodium Chloride (Vancocin/NS) 250 ml @ 83.333 mls/ hr Q36H IVPB ; Start 02/27/17 at 14:00 GUILHERME YATES Feb 26, 2017 15:29
--- NOTE | 2017-02-26 16:17 | RADRPT ---
PROCEDURE: XR Right Hip. CLINICAL INDICATION: Trauma. Right hip pain. TECHNIQUE: Two views. Frontal and lateral. COMPARISON: No prior studies are available for comparison. FINDINGS: There is no fracture or dislocation. There is a stent in the right superficial femoral artery. There are degenerative changes with right hip joint space narrowing and osteophytes. There is no lytic or blastic lesion. There is a Patel catheter in the bladder. IMPRESSION: 1. No fracture or dislocation. 2. Stent in the right superficial femoral artery. 3. Patel catheter in the bladder. 4. Degenerative changes of the right hip. RPTAT: QQ .Guillermo Palafox MD, MD Date Time Electronically viewed and signed by .Guillermo Palafox MD, on 02/26/2017 16:17 .R/
[2017-02-26 19:30] LABS: AADO2 Arterial 219.1 mmHg (7.0-24.0); Allen Test ACCEPTAB; Arterial COHb 0.1 % (0.0-3.0); Arterial Fraction of Oxyhgb 92.4 % (93.0-99.0); Arterial HCO3 19.3 mmol/L (22.0-26.0); Arterial MetHb 0.3 % (0.0-1.5); Arterial Total Hemglobin 11.3 g/dl (12.0-18.0); MODE MASK - SIMPLE
[2017-02-26] MEDS: LEVALBUTEROL (NEB) 0.63 MG/3 ML AMP HHN PRN (20:51)
[2017-02-26] MEDS: ATORVASTATIN 20 MG TAB NGT SCH (21:00)
[2017-02-26] MEDS: LORAZEPAM 2 MG INJ IV PRN (21:11)
[2017-02-26] MEDS ORDERED: METOPROLOL 5 MG INJ IV ONE (21:30)
[2017-02-27] VITALS (50 sets, daily range): BP systolic 97–173; BP diastolic 60–121; PULSE 80–104; RESP 10–41
[2017-02-27] MEDS: VASOPRESSIN 60 UNIT in DEXTROSE 5% 57 ML IV SCH ×2 (01:00→13:00)
[2017-02-27] MEDS: ARTIFICIAL TEARS 15 ML OPH BOTH EYES SCH ×5 (01:36→23:49)
[2017-02-27] MEDS: OCULAR LUBRICANT 3.5 GM OPH OINT BOTH EYES SCH ×5 (01:36→23:49)
[2017-02-27] MEDS: PIPER-TAZO 2.25 GM (PMX) 50 ML IVPB SCH ×5 (01:38→23:49)
[2017-02-27] MEDS: INSULIN ASPART [NOVOLOG] 3 ML PEN SC SCH ×5 (01:42→23:50)
[2017-02-27] MEDS: morphine 4 MG/ML VIAL IV PRN ×6 (01:48→22:32)
[2017-02-27] MEDS: PROPOFOL 100 ML IV SCH ×2 (03:38→16:00)
[2017-02-27] MEDS: LEVALBUTEROL (NEB) 0.63 MG/3 ML AMP HHN PRN (04:49)
[2017-02-27 05:31] LABS: ADD SCAN DIFF NO
[2017-02-27 05:33] LABS: BASOPHILS % 0.2 % (0.0-2.0); HEMATOCRIT 30.5 % (42.0-52.0); HEMOGLOBIN 9.8 g/dl (14.0-18.0); LYMPHOCYTES # 0.9 10^3/ul (0.8-2.9); LYMPHOCYTES % 6.4 % (15.0-51.0); MEAN CORPUSCULAR HEMOGLOBIN 32.1 pg (29.0-33.0); MEAN CORPUSCULAR HGB CONC 32.1 g/dl (32.0-37.0); MEAN PLATELET VOLUME 10.5 fl (7.4-10.4); MONOCYTES % 7.1 % (0.0-11.0); NEUTROPHIL # 11.5 10^3/ul (1.6-7.5); NEUTROPHILS % 85.3 % (39.0-77.0); PLATELET COUNT 257 10^3/UL (140-415); RED BLOOD COUNT 3.05 10^6/ul (4.70-6.10); RED CELL DISTRIBUTION WIDTH 17.2 % (11.5-14.5); WHITE BLOOD COUNT 13.5 10^3/ul (4.8-10.8)
[2017-02-27 06:07] LABS: CALCIUM 8.8 mg/dl (8.4-10.2); CREATININE 1.82 mg/dl (0.61-1.24); MAGNESIUM 1.9 mg/dl (1.7-2.5)
[2017-02-27] MEDS: PANTOPRAZOLE 40 MG INJ IV SCH (06:10)
[2017-02-27] MEDS: FUROSEMIDE 40 MG INJ IV SCH ×2 (06:10→17:47)
--- NOTE | 2017-02-27 07:24 | PN ---
Date/Time of Note Date/Time of Note DATE: 02/27/17 TIME: :20 Assessment/Plan VTE Prophylaxis VTE Prophylaxis Intervention: other Lines/Catheters IV Catheter Type (from Nrsg): PICC Line Central line still needed: Yes Urinary Cath still in place: Yes Reason Cath still needed: other (indicate) Assessment/Plan Chief Complaint/Hosp Course 1. Nonoliguric acute kidney injury with previous baseline creatinine 0.8 mg/dL. -Etiology of CROW secondary to ATN due to ischemic hypoperfusion shock. -Urinalysis was reviewed evidence of proteinuria no evidence of active sediment -Renal function has been fluctuating likely due to diuretic therapy -Increase Lasix to 40 twice daily if patient is volume overload -Continue supportive care, renally dose all meds, avoid nephrotoxic 2. Anemia. -Monitor H&H levels 3. Mineral bone disorder -Monitor calcium phosphorus levels 4. Hypokalemia -Improved. continue to monitor - 5. Volume overload -Improving -Continue lasix 6. Cardiac arrest. Patient status post hypothermia protocol -Follow-up with cardiology 7. Respiratory failure, status post extubation Patient currently on BiPAP may need to be reintubated - ABGs reviewed -Follow-up with pulmonary 8. Pneumothorax -Status post chest tube placement, continue to monitor 9. Sepsis status post shock -Cultures positive for bacteremia -Continue antibiotic regimen, off pressors -Follow-up with ID -Monitor closely 10. hypernatremia Monitor Continue water flushes Problems: Subjective 24 Hr Interval Summary Free Text/Dictation Patient extubated yesterday. Currently in respiratory distress on BiPAP. May require reintubation. Patient's urinary output has been adequate Exam/Review of Systems Vital Signs Vitals Vital Signs Date Time Temp Pulse Resp B/P Pulse Ox O2 Delivery O2 Flow Rate FiO2 02/27/17 06:30 95 35 157/100 02/27/17 06:10 100 100 02/27/17 05:30 Mechanical Ventilator 02/27/17 05:00 15.0 02/27/17 04:00 97.9 Intake and Output 02/26/17 02/26/17 02/27/17 15:00 23:00 07:00 Intake Total 762.5 ml 50 ml Output Total 797 ml 1220 ml 920 ml Balance -34.5 ml -1170 ml -920 ml Exam HEENT: Head is normocephalic, on BiPAP NECK: Supple. HEART: Irregular LUNGS: Show diminished breath sounds at base. ABDOMEN: Soft, nontender to palpation without rebound or guarding. EXTREMITIES: Negative for clubbing, cyanosis. DERMATOLOGIC: No rashes. MUSCULOSKELETAL: No joint effusions, NEUROLOGIC: No change in exam. Results Result Diagram: 02/27/17 0450 02/27/17 0450 Results 24 hrs Laboratory Tests Test 02/26/17 09:13 02/26/17 11:00 02/26/17 11:50 02/26/17 12:42 Bedside Glucose 136 111 Vancomycin Level Trough 16.8 Blood Gas Specimen Source Blood arterial Arterial Blood Date Drawn 02/26/2017 12:05:07 PM Arterial Blood pH (Temp corrected) 7.428 Arterial Blood pCO2 (Temp correct) 36.6 Arterial Blood pO2 (Temp corrected) 96.3 H Arterial Blood HCO3 23.6 Arterial Blood Base Excess -0.5 Arterial Blood Oxygen Saturation 96.5 Chris Test ACCEPTAB Arterial Blood Gas Puncture Site Right Radial Arterial Blood Carboxyhemoglobin 0.3 Arterial Blood Methemoglobin 0.4 Blood Gas A-a O2 Differential 74.6 H Oxyhemoglobin Percent 95.8 Total Hemoglobin 9.7 L Blood Gas Temperature 37.0 Blood Gas Actual Respiration Rate 20 Blood Gas Modality VENT - CPAP FiO2 30.0 Blood Gas Low PEEP Setting 5.0 Blood Gas Pressure Support 10 Blood Gas Notified Whom KAMLESHD Blood Gas Notified Time 02/26/2017 12:27:50 PM Test 02/26/17 18:34 02/26/17 19:00 02/27/17 01:40 02/27/17 04:50 Bedside Glucose 100 92 Blood Gas Specimen Source Blood arterial Arterial Blood Date Drawn 02/26/2017 7:00:42 PM Arterial Blood pH (Temp corrected) 7.430 Arterial Blood pCO2 (Temp correct) 29.8 L Arterial Blood pO2 (Temp corrected) 67.9 L Arterial Blood HCO3 19.3 L Arterial Blood Base Excess -4.0 L Arterial Blood Oxygen Saturation 92.8 L Chris Test ACCEPTAB Arterial Blood Gas Puncture Site Right Radial Arterial Blood Carboxyhemoglobin 0.1 Arterial Blood Methemoglobin 0.3 Blood Gas A-a O2 Differential 219.1 H Oxyhemoglobin Percent 92.4 L Total Hemoglobin 11.3 L Blood Gas Temperature 37.0 Blood Gas Modality MASK - SIMPLE FiO2 45.0 Blood Gas Notified Whom MUNIRA Blood Gas Notified Time 02/26/2017 7:30:17 PM White Blood Count 13.5 #H Red Blood Count 3.05 L Hemoglobin 9.8 L Hematocrit 30.5 #L Mean Corpuscular Volume 100.0 Mean Corpuscular Hemoglobin 32.1 Mean Corpuscular Hemoglobin Concent 32.1 Red Cell Distribution Width 17.2 H Platelet Count 257 # Mean Platelet Volume 10.5 H Neutrophils % 85.3 H Lymphocytes % 6.4 L Monocytes % 7.1 Eosinophils % 0.0 Basophils % 0.2 Nucleated Red Blood Cells % 0.0 Neutrophils # 11.5 H Lymphocytes # 0.9 Monocytes # 1.0 H Eosinophils # 0.0 Basophils # 0.0 Nucleated Red Blood Cells # 0.0 Sodium Level 147 H Potassium Level 4.0 Chloride Level 106 Carbon Dioxide Level 25 Anion Gap 20 H Blood Urea Nitrogen 34 H Creatinine 1.82 H Glucose Level 93 Calcium Level 8.8 Phosphorus Level 5.0 H Magnesium Level 1.9 Test 02/27/17 06:17 Bedside Glucose 103 Medications Medications Current Medications Fentanyl (Sublimaze) 25 mcg Q10M PRN IV SEDATION; Start 02/14/17 at 12:30 Ondansetron HCl (Zofran Inj) 4 mg Q6H PRN IV NAUSEA AND/OR VOMITING; Start 02/14 at 16:00 Pantoprazole (Protonix Iv) 40 mg DAILY@06 IV Last administered on 02/27/17 06: 10; Admin Dose 40 MG; Start 02/15/17 at 06:00 Acetaminophen (Tylenol Supp) 650 mg Q4H PRN [place] TEMP > 37C; Start 02/14/17 at 18: 00 Acetaminophen (Tylenol Liquid) 650 mg Q4H PRN PO TEMP > 37C Last administered on 02/21/17 03:16; Admin Dose 650 MG; Start 02/14/17 at 18:00 Eye Lubricant (Akwa Oint) 1 applic Q6 BOTH EYES Last administered on 02/27/17 06:11; Admin Dose 1 APPLIC; Start 02/14/17 at 18:00 Eye Lubricant 2 drop 2 drop Q6 BOTH EYES Last administered on 02/27/17 06:11; Admin Dose 2 DROP; Start 02/14/17 at 18:00 Norepinephrine 16 mg/Dextrose 500 ml @ 0 mls/hr TITRATE IV Last administered on 02/20/17 19:05; Admin Dose 11.25 MLS/HR; Start 02/14/17 at 22:00 Azithromycin 500 mg/Sodium Chloride 250 ml @ 250 mls/hr DAILY IVPB Last administered on 02/26/17 09:02; Admin Dose 250 MLS/HR; Start 02/15/17 at 10:00 Phenylephrine HCl/ Dextrose (Fritz-Syneph/D5W) 500 ml @ 75 mls/hr TITRATE IV ; Start 02/16/17 at 03:30 Miscellaneous Information 1 ea NOTE XX ; Start 02/16/17 at 11:30 Glucose (Glutose) 15 gm Q15M PRN PO DECREASED GLUCOSE; Start 02/16/17 at 11:30 Glucose (Glutose) 22.5 gm Q15M PRN PO DECREASED GLUCOSE; Start 02/16/17 at 11:30 Dextrose (D50w Syringe) 25 ml Q15M PRN IV DECREASED GLUCOSE; Start 02/16/17 at 11:30 Dextrose (D50w Syringe) 50 ml Q15M PRN IV DECREASED GLUCOSE; Start 02/16/17 at 11:30 Glucagon (Glucagen) 1 mg Q15M PRN IM DECREASED GLUCOSE; Start 02/16/17 at 11:30 Glucose 15 gm 15 gm Q15M PRN BUCCAL DECREASED GLUCOSE; Start 02/16/17 at 11:30 Piperacillin Sod/ Tazobactam Sod 50 ml @ 100 mls/hr Q6 IVPB Last administered on 02/27/17 06:10; Admin Dose 100 MLS/HR; Start 02/16/17 at 18:00 Vasopressin/ Dextrose (Vasostrict/D5W) 60 ml @ 1.8 mls/hr Q12H IV ; Start at 13:00 Aspirin (Aspirin) 81 mg DAILY GTB Last administered on 02/26/17 08:52; Admin Dose 81 MG; Start 02/18/17 at 09:00 Atorvastatin Calcium (Lipitor) 20 mg HS NGT Last administered on 02/25/17 20: 46; Admin Dose 20 MG; Start 02/17/17 at 21:00 Insulin Aspart (Novolog Insulin Pen) NOVOLOG *MILD* ALGORI... Q6 SC Last administered on 02/20/17 17:54; Admin Dose 1 UNIT; Start 02/20/17 at 00:00 IV Flush (NS 10 ml) 10 ml PRN PRN IV IV PROTOCOL; Start 02/20/17 at 16:00 Lorazepam 1 mg 1 mg Q6H PRN IV AGITATION/ANXIETY Last administered on 21:11; Admin Dose 1 MG; Start 02/20/17 at 21:40 Propofol 100 ml @ 2.07 mls/hr Q12H IV Last administered on 02/25/17 16:25; Admin Dose 8.28 MLS/HR; Start 02/22/17 at 04:00 Fentanyl 100 ml @ 2.5 mls/hr TITRATE IV Last administered on 02/23/17 12:44; Admin Dose 5 MLS/HR; Start 02/22/17 at 11:00 Dexmedetomidine HCl/Sodium Chloride (Precedex/NS) 50 ml @ 3.45 mls/hr TITRATE IV Last administered on 02/26/17 12:07; Admin Dose 24.15 MLS/HR; Start at 12:00 Furosemide 40 mg 40 mg DAILY@06 IV Last administered on 02/27/17 06:10; Admin Dose 40 MG; Start 02/26/17 at 07:30 Vancomycin HCl/ Sodium Chloride (Vancocin/NS) 250 ml @ 83.333 mls/ hr Q36H IVPB ; Start 02/27/17 at 14:00 Morphine Sulfate (morphine) 4 mg Q2 PRN IV Severe Pain Last administered on 01:48; Admin Dose 4 MG; Start 02/26/17 at 21:30 JENSEN OLIVIER DO Feb 27, 2017 07:23
[2017-02-27 07:27] LABS: AADO2 Arterial 420.7 mmHg (7.0-24.0); Allen Test ACCEPTAB; Arterial Base Excess -2.9 mmol/L (-3.0-3); Arterial COHb 0.2 % (0.0-3.0); Arterial Fraction of Oxyhgb 98.5 % (93.0-99.0); Arterial HCO3 22.2 mmol/L (22.0-26.0); Arterial MetHb 0.4 % (0.0-1.5); Arterial Total Hemglobin 10.9 g/dl (12.0-18.0); Blood Gas IEPAP 20/5; MODE MASK - BIPAP
[2017-02-27] MEDS: ASPIRIN 81 MG TAB GTB SCH (09:00)
[2017-02-27] MEDS ORDERED: HALOPERIDOL 5 MG INJ IM ONE (09:00)
[2017-02-27] MEDS: AZITHROMYCIN 500 MG in SOD CHLORIDE 0.9% 250 ML IVPB SCH (09:19)
--- NOTE | 2017-02-27 10:41 | CONS ---
Date/Time of Note Date/Time of Note DATE: 02/27/17 TIME: 10:40 Consult Date/Type/Reason Admit Date/Time Feb 14, 2017 at 16:02 Type of Consultation: Pulmonary Subjective Worsening respiratory distress this morning placed on noninvasive positive pressure ventilation. Arterial blood gas demonstrates adequate PCO2 and PaO2. Still significantly agitated with moderate secretions which she is having difficulty clearing. Objective Vital Signs Date Time Temp Pulse Resp B/P Pulse Ox O2 Delivery O2 Flow Rate FiO2 02/27/17 09:20 86 100 50 02/27/17 06:30 35 157/100 02/27/17 05:30 Mechanical Ventilator 02/27/17 05:00 15.0 02/27/17 04:00 97.9 Intake and Output 02/26/17 02/26/17 02/27/17 15:00 23:00 07:00 Intake Total 762.5 ml 50 ml Output Total 797 ml 1220 ml 920 ml Balance -34.5 ml -1170 ml -920 ml Exam PHYSICAL EXAMINATION GENERAL: Elderly gentleman, on BiPAP awake alert agitated. VITAL SIGNS: see below. HEENT: Pupils equal, round, and reactive to light. CARDIAC: S1, S2, 1/6 systolic ejection murmur CHEST: Diminished air entry bilaterally. ABDOMEN: Mildly distended. Bowel sounds present no guarding or rebound EXTREMITIES: No cyanosis, clubbing edema +1 NEUROLOGIC: Generalized weakness Results/Medications Result Diagram: 02/27/17 0450 02/27/17 0450 Results 24 hrs Laboratory Tests Test 02/26/17 11:00 02/26/17 11:50 02/26/17 12:42 02/26/17 18:34 Vancomycin Level Trough 16.8 Blood Gas Specimen Source Blood arterial Arterial Blood Date Drawn 02/26/2017 12:05:07 PM Arterial Blood pH (Temp corrected) 7.428 Arterial Blood pCO2 (Temp correct) 36.6 Arterial Blood pO2 (Temp corrected) 96.3 H Arterial Blood HCO3 23.6 Arterial Blood Base Excess -0.5 Arterial Blood Oxygen Saturation 96.5 Chris Test ACCEPTAB Arterial Blood Gas Puncture Site Right Radial Arterial Blood Carboxyhemoglobin 0.3 Arterial Blood Methemoglobin 0.4 Blood Gas A-a O2 Differential 74.6 H Oxyhemoglobin Percent 95.8 Total Hemoglobin 9.7 L Blood Gas Temperature 37.0 Blood Gas Actual Respiration Rate 20 Blood Gas Modality VENT - CPAP FiO2 30.0 Blood Gas Low PEEP Setting 5.0 Blood Gas Pressure Support 10 Blood Gas Notified Whom JLD Blood Gas Notified Time 02/26/2017 12:27:50 PM Bedside Glucose 111 100 Test 02/26/17 19:00 02/27/17 01:40 02/27/17 04:50 02/27/17 06:17 Blood Gas Specimen Source Blood arterial Arterial Blood Date Drawn 02/26/2017 7:00:42 PM Arterial Blood pH (Temp corrected) 7.430 Arterial Blood pCO2 (Temp correct) 29.8 L Arterial Blood pO2 (Temp corrected) 67.9 L Arterial Blood HCO3 19.3 L Arterial Blood Base Excess -4.0 L Arterial Blood Oxygen Saturation 92.8 L Chris Test ACCEPTAB Arterial Blood Gas Puncture Site Right Radial Arterial Blood Carboxyhemoglobin 0.1 Arterial Blood Methemoglobin 0.3 Blood Gas A-a O2 Differential 219.1 H Oxyhemoglobin Percent 92.4 L Total Hemoglobin 11.3 L Blood Gas Temperature 37.0 Blood Gas Modality MASK - SIMPLE FiO2 45.0 Blood Gas Notified Whom MA Blood Gas Notified Time 02/26/2017 7:30:17 PM Bedside Glucose 92 103 White Blood Count 13.5 #H Red Blood Count 3.05 L Hemoglobin 9.8 L Hematocrit 30.5 #L Mean Corpuscular Volume 100.0 Mean Corpuscular Hemoglobin 32.1 Mean Corpuscular Hemoglobin Concent 32.1 Red Cell Distribution Width 17.2 H Platelet Count 257 # Mean Platelet Volume 10.5 H Neutrophils % 85.3 H Lymphocytes % 6.4 L Monocytes % 7.1 Eosinophils % 0.0 Basophils % 0.2 Nucleated Red Blood Cells % 0.0 Neutrophils # 11.5 H Lymphocytes # 0.9 Monocytes # 1.0 H Eosinophils # 0.0 Basophils # 0.0 Nucleated Red Blood Cells # 0.0 Sodium Level 147 H Potassium Level 4.0 Chloride Level 106 Carbon Dioxide Level 25 Anion Gap 20 H Blood Urea Nitrogen 34 H Creatinine 1.82 H Glucose Level 93 Calcium Level 8.8 Phosphorus Level 5.0 H Magnesium Level 1.9 Test 02/27/17 07:00 Blood Gas Specimen Source Blood arterial Arterial Blood Date Drawn 02/27/2017 7:10:30 AM Arterial Blood pH (Temp corrected) 7.365 Arterial Blood pCO2 (Temp correct) 39.7 Arterial Blood pO2 (Temp corrected) 252.6 H Arterial Blood HCO3 22.2 Arterial Blood Base Excess -2.9 Arterial Blood Oxygen Saturation 99.1 Chris Test ACCEPTAB Arterial Blood Gas Puncture Site Right Radial Arterial Blood Carboxyhemoglobin 0.2 Arterial Blood Methemoglobin 0.4 Blood Gas A-a O2 Differential 420.7 H Oxyhemoglobin Percent 98.5 Total Hemoglobin 10.9 L Blood Gas Temperature 37.0 Blood Gas Respiration Rate 20.0 Blood Gas Actual Respiration Rate 29 Blood Gas Modality MASK - BIPAP FiO2 100.0 Blood Gas IPAP/EPAP Ratio 20/5 Blood Gas Notified Whom JLD Blood Gas Notified Time 02/27/2017 7:27:05 AM Medications Current Medications Fentanyl (Sublimaze) 25 mcg Q10M PRN IV SEDATION; Start 02/14/17 at 12:30 Ondansetron HCl (Zofran Inj) 4 mg Q6H PRN IV NAUSEA AND/OR VOMITING; Start 02/14 at 16:00 Pantoprazole (Protonix Iv) 40 mg DAILY@06 IV Last administered on 02/27/17 06: 10; Admin Dose 40 MG; Start 02/15/17 at 06:00 Acetaminophen (Tylenol Supp) 650 mg Q4H PRN [place] TEMP > 37C; Start 02/14/17 at 18: 00 Acetaminophen (Tylenol Liquid) 650 mg Q4H PRN PO TEMP > 37C Last administered on 02/21/17 03:16; Admin Dose 650 MG; Start 02/14/17 at 18:00 Eye Lubricant (Akwa Oint) 1 applic Q6 BOTH EYES Last administered on 02/27/17 06:11; Admin Dose 1 APPLIC; Start 02/14/17 at 18:00 Eye Lubricant 2 drop 2 drop Q6 BOTH EYES Last administered on 02/27/17 06:11; Admin Dose 2 DROP; Start 02/14/17 at 18:00 Norepinephrine 16 mg/Dextrose 500 ml @ 0 mls/hr TITRATE IV Last administered on 02/20/17 19:05; Admin Dose 11.25 MLS/HR; Start 02/14/17 at 22:00 Azithromycin 500 mg/Sodium Chloride 250 ml @ 250 mls/hr DAILY IVPB Last administered on 02/27/17 09:19; Admin Dose 250 MLS/HR; Start 02/15/17 at 10:00 Phenylephrine HCl/ Dextrose (Fritz-Syneph/D5W) 500 ml @ 75 mls/hr TITRATE IV ; Start 02/16/17 at 03:30 Miscellaneous Information 1 ea NOTE XX ; Start 02/16/17 at 11:30 Glucose (Glutose) 15 gm Q15M PRN PO DECREASED GLUCOSE; Start 02/16/17 at 11:30 Glucose (Glutose) 22.5 gm Q15M PRN PO DECREASED GLUCOSE; Start 02/16/17 at 11:30 Dextrose (D50w Syringe) 25 ml Q15M PRN IV DECREASED GLUCOSE; Start 02/16/17 at 11:30 Dextrose (D50w Syringe) 50 ml Q15M PRN IV DECREASED GLUCOSE; Start 02/16/17 at 11:30 Glucagon (Glucagen) 1 mg Q15M PRN IM DECREASED GLUCOSE; Start 02/16/17 at 11:30 Glucose 15 gm 15 gm Q15M PRN BUCCAL DECREASED GLUCOSE; Start 02/16/17 at 11:30 Piperacillin Sod/ Tazobactam Sod 50 ml @ 100 mls/hr Q6 IVPB Last administered on 02/27/17 06:10; Admin Dose 100 MLS/HR; Start 02/16/17 at 18:00 Vasopressin/ Dextrose (Vasostrict/D5W) 60 ml @ 1.8 mls/hr Q12H IV ; Start at 13:00 Aspirin (Aspirin) 81 mg DAILY GTB Last administered on 02/26/17 08:52; Admin Dose 81 MG; Start 02/18/17 at 09:00 Atorvastatin Calcium (Lipitor) 20 mg HS NGT Last administered on 02/25/17 20: 46; Admin Dose 20 MG; Start 02/17/17 at 21:00 Insulin Aspart (Novolog Insulin Pen) NOVOLOG *MILD* ALGORI... Q6 SC Last administered on 02/20/17 17:54; Admin Dose 1 UNIT; Start 02/20/17 at 00:00 IV Flush (NS 10 ml) 10 ml PRN PRN IV IV PROTOCOL; Start 02/20/17 at 16:00 Lorazepam 1 mg 1 mg Q6H PRN IV AGITATION/ANXIETY Last administered on 21:11; Admin Dose 1 MG; Start 02/20/17 at 21:40 Propofol 100 ml @ 2.07 mls/hr Q12H IV Last administered on 02/25/17 16:25; Admin Dose 8.28 MLS/HR; Start 02/22/17 at 04:00 Fentanyl 100 ml @ 2.5 mls/hr TITRATE IV Last administered on 02/23/17 12:44; Admin Dose 5 MLS/HR; Start 02/22/17 at 11:00 Dexmedetomidine HCl 200 mcg/ Sodium Chloride 50 ml @ 3.45 mls/hr TITRATE IV Last administered on 02/26/17 12:07; Admin Dose 24.15 MLS/HR; Start 02/24/17 at 12:00 Vancomycin HCl/ Sodium Chloride (Vancocin/NS) 250 ml @ 83.333 mls/ hr Q36H IVPB ; Start 02/27/17 at 14:00 Morphine Sulfate (morphine) 4 mg Q2 PRN IV Severe Pain Last administered on 09:20; Admin Dose 4 MG; Start 02/26/17 at 21:30 Assessment/Plan Chief Complaint/Hosp Course IMP: 1. Cardiopulmonary Arrest: query primary cardiac event leading to respiratory failure and multilobar aspiration pneumonia, possible increasing pulmonary edema 2. Respiratory Failure/Vent 3. Multifocal pneumonia--likely aspiration 4. s/p VF 5. ARF 6. Barotrauma--s/p CPR 7. Hypoglycemia 8. Septic shock secondary to above 9. Encephalopathy possibly toxic metabolic. Slowly improving on Precedex. RECS: 1. Continue noninvasive positive pressure ventilation 2. Pulmonary toilet 3. Continue tube feeding if tolerated 4. Lasix twice daily 5. Monitor H&H, transfusion packed red blood cells if continues to drop. 6. DVT and GI prophylaxis. Discussed with staff at bedside 40 min cc time Problems: CAS LIMA MD, [facility] Feb 27, 2017 10:41
--- NOTE | 2017-02-27 10:59 | RADRPT ---
PROCEDURE: Chest 1 views. CLINICAL INDICATION: Shortness of breath. TECHNIQUE: AP views of the chest was obtained. COMPARISON: February 26, 2017 FINDINGS: The heart is large. Left-sided PICC line is stable. Left-sided chest tube is unchanged. Questionab le, trace left apical pneumothorax is observed. Endotracheal and nasogastric tubes have been remove d. Patchy infiltrates in both lungs are stable. Small pleural effusions are unchanged. Scarring at the lung apices is stable. Osseous structures are stable. Left-sided rib fractures are stable. IMPRESSION: Cardiomegaly . Stable left chest tube with questionable trace left apical pneumothorax. Stable patchy infiltrates throughout both lungs and small pleural effusions. Stable left rib fractures. RPTAT: AA .Maurizio Orozco MD, Date Time Electronically viewed and signed by .Maurizio Orozco MD, on 02/27/2017 10:59 .P/
--- NOTE | 2017-02-27 13:45 | PN ---
Date/Time of Note Date/Time of Note DATE: 02/27/17 TIME: 13:44 Assessment/Plan VTE Prophylaxis VTE Prophylaxis Intervention: SCD's Assessment/Plan Chief Complaint/Hosp Course 1. S/p Cardiac arrest secondary to V-fib status post ACLS with defibrillation and return of circulation -Status post hypothermia protocol / Cardiology following / patient did not meet criteria for emergent cardiac catheterization per registered safety engineer on-call on arrival 2. Vent dependent resp failure secondary to cardiac arrest-extubated now BiPAP -Continue Lasix -Continue vent management / Pulmonology consultation appreciated 3. L sided Rib fractures and Pneumothorax secondary to repeated chest compressions - status post chest tube placement / Pulm managing 4. Sepsis with bilateral Pneumonia likely with a component of aspiration / Coagulase neg bacteremia / UTI - Continue current abx 5. Acute on Chronic Normocytic anemia with thrombocytopenia likely 2/2 Iron deficiency -Chronic Anemia is likely worsened by blood loss, which is likely precipitated by per thrombocytopenia 6. Acute kidney disease on CKD secondary to cardiac arrest -Monitor, nephrology following 7. Reactive Hyperglycemia -Normal BG levels on regular tube feeds / d/c SSI 8. 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 Right hip pain X-ray right hip Prophylaxis: SCD's Problems: Subjective 24 Hr Interval Summary Constitutional: disoriented Exam/Review of Systems Vital Signs Vitals Vital Signs Date Time Temp Pulse Resp B/P Pulse Ox O2 Delivery O2 Flow Rate FiO2 02/27/17 12:00 92 02/27/17 11:30 28 126/74 89 02/27/17 09:20 Nasal Cannula 02/27/17 09:20 50 02/27/17 08:00 99.0 02/27/17 05:00 15.0 Intake and Output 02/26/17 02/26/17 02/27/17 15:00 23:00 07:00 Intake Total 762.5 ml 50 ml 50 ml Output Total 797 ml 1220 ml 1000 ml Balance -34.5 ml -1170 ml -950 ml Exam Psych: confusion Respiratory: crackles/rales Cardiovascular: regular rate and rhythm Gastrointestinal: soft, No distended Musculoskeletal: nl extremities to inspection Results Result Diagram: 02/27/17 0450 02/27/17 0450 Results 24 hrs Laboratory Tests Test 02/26/17 18:34 02/26/17 19:00 02/27/17 01:40 02/27/17 04:50 Bedside Glucose 100 92 Blood Gas Specimen Source Blood arterial Arterial Blood Date Drawn 02/26/2017 7:00:42 PM Arterial Blood pH (Temp corrected) 7.430 Arterial Blood pCO2 (Temp correct) 29.8 L Arterial Blood pO2 (Temp corrected) 67.9 L Arterial Blood HCO3 19.3 L Arterial Blood Base Excess -4.0 L Arterial Blood Oxygen Saturation 92.8 L Chris Test ACCEPTAB Arterial Blood Gas Puncture Site Right Radial Arterial Blood Carboxyhemoglobin 0.1 Arterial Blood Methemoglobin 0.3 Blood Gas A-a O2 Differential 219.1 H Oxyhemoglobin Percent 92.4 L Total Hemoglobin 11.3 L Blood Gas Temperature 37.0 Blood Gas Modality MASK - SIMPLE FiO2 45.0 Blood Gas Notified Whom [place] Blood Gas Notified Time 02/26/2017 7:30:17 PM White Blood Count 13.5 #H Red Blood Count 3.05 L Hemoglobin 9.8 L Hematocrit 30.5 #L Mean Corpuscular Volume 100.0 Mean Corpuscular Hemoglobin 32.1 Mean Corpuscular Hemoglobin Concent 32.1 Red Cell Distribution Width 17.2 H Platelet Count 257 # Mean Platelet Volume 10.5 H Neutrophils % 85.3 H Lymphocytes % 6.4 L Monocytes % 7.1 Eosinophils % 0.0 Basophils % 0.2 Nucleated Red Blood Cells % 0.0 Neutrophils # 11.5 H Lymphocytes # 0.9 Monocytes # 1.0 H Eosinophils # 0.0 Basophils # 0.0 Nucleated Red Blood Cells # 0.0 Sodium Level 147 H Potassium Level 4.0 Chloride Level 106 Carbon Dioxide Level 25 Anion Gap 20 H Blood Urea Nitrogen 34 H Creatinine 1.82 H Glucose Level 93 Calcium Level 8.8 Phosphorus Level 5.0 H Magnesium Level 1.9 Test 02/27/17 06:17 02/27/17 07:00 02/27/17 12:18 Bedside Glucose 103 95 Blood Gas Specimen Source Blood arterial Arterial Blood Date Drawn 02/27/2017 7:10:30 AM Arterial Blood pH (Temp corrected) 7.365 Arterial Blood pCO2 (Temp correct) 39.7 Arterial Blood pO2 (Temp corrected) 252.6 H Arterial Blood HCO3 22.2 Arterial Blood Base Excess -2.9 Arterial Blood Oxygen Saturation 99.1 Chris Test ACCEPTAB Arterial Blood Gas Puncture Site Right Radial Arterial Blood Carboxyhemoglobin 0.2 Arterial Blood Methemoglobin 0.4 Blood Gas A-a O2 Differential 420.7 H Oxyhemoglobin Percent 98.5 Total Hemoglobin 10.9 L Blood Gas Temperature 37.0 Blood Gas Respiration Rate 20.0 Blood Gas Actual Respiration Rate 29 Blood Gas Modality MASK - BIPAP FiO2 100.0 Blood Gas IPAP/EPAP Ratio 20/5 Blood Gas Notified Whom JLD Blood Gas Notified Time 02/27/2017 7:27:05 AM Medications Medications Current Medications Fentanyl (Sublimaze) 25 mcg Q10M PRN IV SEDATION; Start 02/14/17 at 12:30 Ondansetron HCl (Zofran Inj) 4 mg Q6H PRN IV NAUSEA AND/OR VOMITING; Start 02/14 at 16:00 Pantoprazole (Protonix Iv) 40 mg DAILY@06 IV Last administered on 02/27/17 06: 10; Admin Dose 40 MG; Start 02/15/17 at 06:00 Acetaminophen (Tylenol Supp) 650 mg Q4H PRN [place] TEMP > 37C; Start 02/14/17 at 18: 00 Acetaminophen (Tylenol Liquid) 650 mg Q4H PRN PO TEMP > 37C Last administered on 02/21/17 03:16; Admin Dose 650 MG; Start 02/14/17 at 18:00 Eye Lubricant (Akwa Oint) 1 applic Q6 BOTH EYES Last administered on 02/27/17 12:11; Admin Dose 1 APPLIC; Start 02/14/17 at 18:00 Eye Lubricant 2 drop 2 drop Q6 BOTH EYES Last administered on 02/27/17 12:11; Admin Dose 2 DROP; Start 02/14/17 at 18:00 Norepinephrine 16 mg/Dextrose 500 ml @ 0 mls/hr TITRATE IV Last administered on 02/20/17 19:05; Admin Dose 11.25 MLS/HR; Start 02/14/17 at 22:00 Azithromycin 500 mg/Sodium Chloride 250 ml @ 250 mls/hr DAILY IVPB Last administered on 02/27/17 09:19; Admin Dose 250 MLS/HR; Start 02/15/17 at 10:00 Phenylephrine HCl/ Dextrose (Fritz-Syneph/D5W) 500 ml @ 75 mls/hr TITRATE IV ; Start 02/16/17 at 03:30 Miscellaneous Information 1 ea NOTE XX ; Start 02/16/17 at 11:30 Glucose (Glutose) 15 gm Q15M PRN PO DECREASED GLUCOSE; Start 02/16/17 at 11:30 Glucose (Glutose) 22.5 gm Q15M PRN PO DECREASED GLUCOSE; Start 02/16/17 at 11:30 Dextrose (D50w Syringe) 25 ml Q15M PRN IV DECREASED GLUCOSE; Start 02/16/17 at 11:30 Dextrose (D50w Syringe) 50 ml Q15M PRN IV DECREASED GLUCOSE; Start 02/16/17 at 11:30 Glucagon (Glucagen) 1 mg Q15M PRN IM DECREASED GLUCOSE; Start 02/16/17 at 11:30 Glucose 15 gm 15 gm Q15M PRN BUCCAL DECREASED GLUCOSE; Start 02/16/17 at 11:30 Piperacillin Sod/ Tazobactam Sod 50 ml @ 100 mls/hr Q6 IVPB Last administered on 02/27/17 12:16; Admin Dose 100 MLS/HR; Start 02/16/17 at 18:00 Vasopressin/ Dextrose (Vasostrict/D5W) 60 ml @ 1.8 mls/hr Q12H IV ; Start at 13:00 Aspirin (Aspirin) 81 mg DAILY GTB Last administered on 02/26/17 08:52; Admin Dose 81 MG; Start 02/18/17 at 09:00 Atorvastatin Calcium (Lipitor) 20 mg HS NGT Last administered on 02/25/17 20: 46; Admin Dose 20 MG; Start 02/17/17 at 21:00 Insulin Aspart (Novolog Insulin Pen) NOVOLOG *MILD* ALGORI... Q6 SC Last administered on 02/20/17 17:54; Admin Dose 1 UNIT; Start 02/20/17 at 00:00 IV Flush (NS 10 ml) 10 ml PRN PRN IV IV PROTOCOL; Start 02/20/17 at 16:00 Lorazepam 1 mg 1 mg Q6H PRN IV AGITATION/ANXIETY Last administered on 21:11; Admin Dose 1 MG; Start 02/20/17 at 21:40 Propofol 100 ml @ 2.07 mls/hr Q12H IV Last administered on 02/25/17 16:25; Admin Dose 8.28 MLS/HR; Start 02/22/17 at 04:00 Fentanyl 100 ml @ 2.5 mls/hr TITRATE IV Last administered on 02/23/17 12:44; Admin Dose 5 MLS/HR; Start 02/22/17 at 11:00 Dexmedetomidine HCl 200 mcg/ Sodium Chloride 50 ml @ 3.45 mls/hr TITRATE IV Last administered on 02/26/17 12:07; Admin Dose 24.15 MLS/HR; Start 02/24/17 at 12:00 Vancomycin HCl/ Sodium Chloride (Vancocin/NS) 250 ml @ 83.333 mls/ hr Q36H IVPB ; Start 02/27/17 at 14:00 Morphine Sulfate (morphine) 4 mg Q2 PRN IV Severe Pain Last administered on 12:10; Admin Dose 4 MG; Start 02/26/17 at 21:30 GUILHERME YATES Feb 27, 2017 13:45
[2017-02-27] MEDS: VANCOMYCIN 1.25 GM in SOD CHLORIDE 0.9% 250 ML IVPB SCH (14:52)
--- NOTE | 2017-02-27 15:30 | CONS ---
Date/Time of Note Date/Time of Note DATE: 02/27/17 TIME: 15:28 Assessment/Plan Assessment/Plan Additional Assessment/Plan Cardiopulmonary arrest Septic shock Vent dependent respiratory failure Cardiomyopathy with ejection fraction 20% Non-ST elevation MA Acute kidney injury Acute blood loss anemia Paroxysmal atrial fibrillation -Patient status post hypothermia protocol. -Continue aspirin and statin therapy, no beta-naida secondary to bradycardia, no BERTHA inhibitor secondary to acute kidney injury. Continue diuretics as blood pressure and renal function permits Consultation Date/Type/Reason Admit Date/Time Feb 14, 2017 at 16:02 Type of Consultation: cv 24 HR Interval Summary Free Text/Dictation Patient extubated, was dyspneic this morning and responded well to Lasix as per nursing staff Exam/Review of Systems Vital Signs Vitals Vital Signs Date Time Temp Pulse Resp B/P Pulse Ox O2 Delivery O2 Flow Rate FiO2 02/27/17 14:00 88 19 113/61 95 High Flow 02/27/17 13:20 50 02/27/17 12:00 98.7 02/27/17 05:00 15.0 Intake and Output 02/26/17 02/26/17 02/27/17 15:00 23:00 07:00 Intake Total 762.5 ml 50 ml 50 ml Output Total 797 ml 1220 ml 1036 ml Balance -34.5 ml -1170 ml -986 ml Exam Sleeping but arousable, no apparent distress Head: normocephalic Respiratory: other (Coarse breath sounds bilaterally, no wheezing) Cardiovascular: irregular rhythm, other (S1-S2 heard) Gastrointestinal: bowel sounds, non-tender, soft Extremities: edema Results Result Diagram: 02/27/17 0450 02/27/17 0450 Results 24 hrs Laboratory Tests Test 02/26/17 18:34 02/26/17 19:00 02/27/17 01:40 02/27/17 04:50 Bedside Glucose 100 92 Blood Gas Specimen Source Blood arterial Arterial Blood Date Drawn 02/26/2017 7:00:42 PM Arterial Blood pH (Temp corrected) 7.430 Arterial Blood pCO2 (Temp correct) 29.8 L Arterial Blood pO2 (Temp corrected) 67.9 L Arterial Blood HCO3 19.3 L Arterial Blood Base Excess -4.0 L Arterial Blood Oxygen Saturation 92.8 L Chris Test ACCEPTAB Arterial Blood Gas Puncture Site Right Radial Arterial Blood Carboxyhemoglobin 0.1 Arterial Blood Methemoglobin 0.3 Blood Gas A-a O2 Differential 219.1 H Oxyhemoglobin Percent 92.4 L Total Hemoglobin 11.3 L Blood Gas Temperature 37.0 Blood Gas Modality MASK - SIMPLE FiO2 45.0 Blood Gas Notified Whom MUNIRA Blood Gas Notified Time 02/26/2017 7:30:17 PM White Blood Count 13.5 #H Red Blood Count 3.05 L Hemoglobin 9.8 L Hematocrit 30.5 #L Mean Corpuscular Volume 100.0 Mean Corpuscular Hemoglobin 32.1 Mean Corpuscular Hemoglobin Concent 32.1 Red Cell Distribution Width 17.2 H Platelet Count 257 # Mean Platelet Volume 10.5 H Neutrophils % 85.3 H Lymphocytes % 6.4 L Monocytes % 7.1 Eosinophils % 0.0 Basophils % 0.2 Nucleated Red Blood Cells % 0.0 Neutrophils # 11.5 H Lymphocytes # 0.9 Monocytes # 1.0 H Eosinophils # 0.0 Basophils # 0.0 Nucleated Red Blood Cells # 0.0 Sodium Level 147 H Potassium Level 4.0 Chloride Level 106 Carbon Dioxide Level 25 Anion Gap 20 H Blood Urea Nitrogen 34 H Creatinine 1.82 H Glucose Level 93 Calcium Level 8.8 Phosphorus Level 5.0 H Magnesium Level 1.9 Test 02/27/17 06:17 02/27/17 07:00 02/27/17 12:18 Bedside Glucose 103 95 Blood Gas Specimen Source Blood arterial Arterial Blood Date Drawn 02/27/2017 7:10:30 AM Arterial Blood pH (Temp corrected) 7.365 Arterial Blood pCO2 (Temp correct) 39.7 Arterial Blood pO2 (Temp corrected) 252.6 H Arterial Blood HCO3 22.2 Arterial Blood Base Excess -2.9 Arterial Blood Oxygen Saturation 99.1 Chris Test ACCEPTAB Arterial Blood Gas Puncture Site Right Radial Arterial Blood Carboxyhemoglobin 0.2 Arterial Blood Methemoglobin 0.4 Blood Gas A-a O2 Differential 420.7 H Oxyhemoglobin Percent 98.5 Total Hemoglobin 10.9 L Blood Gas Temperature 37.0 Blood Gas Respiration Rate 20.0 Blood Gas Actual Respiration Rate 29 Blood Gas Modality MASK - BIPAP FiO2 100.0 Blood Gas IPAP/EPAP Ratio 20/5 Blood Gas Notified Whom VICTORINO Blood Gas Notified Time 02/27/2017 7:27:05 AM Medications Medications Current Medications Fentanyl (Sublimaze) 25 mcg Q10M PRN IV SEDATION; Start 02/14/17 at 12:30 Ondansetron HCl (Zofran Inj) 4 mg Q6H PRN IV NAUSEA AND/OR VOMITING; Start 02/14 at 16:00 Pantoprazole (Protonix Iv) 40 mg DAILY@06 IV Last administered on 02/27/17 06: 10; Admin Dose 40 MG; Start 02/15/17 at 06:00 Acetaminophen (Tylenol Supp) 650 mg Q4H PRN [place] TEMP > 37C; Start 02/14/17 at 18: 00 Acetaminophen (Tylenol Liquid) 650 mg Q4H PRN PO TEMP > 37C Last administered on 02/21/17 03:16; Admin Dose 650 MG; Start 02/14/17 at 18:00 Eye Lubricant (Akwa Oint) 1 applic Q6 BOTH EYES Last administered on 02/27/17 12:11; Admin Dose 1 APPLIC; Start 02/14/17 at 18:00 Eye Lubricant 2 drop 2 drop Q6 BOTH EYES Last administered on 02/27/17 12:11; Admin Dose 2 DROP; Start 02/14/17 at 18:00 Norepinephrine 16 mg/Dextrose 500 ml @ 0 mls/hr TITRATE IV Last administered on 02/20/17 19:05; Admin Dose 11.25 MLS/HR; Start 02/14/17 at 22:00 Azithromycin 500 mg/Sodium Chloride 250 ml @ 250 mls/hr DAILY IVPB Last administered on 02/27/17 09:19; Admin Dose 250 MLS/HR; Start 02/15/17 at 10:00 Phenylephrine HCl/ Dextrose (Fritz-Syneph/D5W) 500 ml @ 75 mls/hr TITRATE IV ; Start 02/16/17 at 03:30 Miscellaneous Information 1 ea NOTE XX ; Start 02/16/17 at 11:30 Glucose (Glutose) 15 gm Q15M PRN PO DECREASED GLUCOSE; Start 02/16/17 at 11:30 Glucose (Glutose) 22.5 gm Q15M PRN PO DECREASED GLUCOSE; Start 02/16/17 at 11:30 Dextrose (D50w Syringe) 25 ml Q15M PRN IV DECREASED GLUCOSE; Start 02/16/17 at 11:30 Dextrose (D50w Syringe) 50 ml Q15M PRN IV DECREASED GLUCOSE; Start 02/16/17 at 11:30 Glucagon (Glucagen) 1 mg Q15M PRN IM DECREASED GLUCOSE; Start 02/16/17 at 11:30 Glucose 15 gm 15 gm Q15M PRN BUCCAL DECREASED GLUCOSE; Start 02/16/17 at 11:30 Piperacillin Sod/ Tazobactam Sod 50 ml @ 100 mls/hr Q6 IVPB Last administered on 02/27/17 12:16; Admin Dose 100 MLS/HR; Start 02/16/17 at 18:00 Vasopressin/ Dextrose (Vasostrict/D5W) 60 ml @ 1.8 mls/hr Q12H IV ; Start at 13:00 Aspirin (Aspirin) 81 mg DAILY GTB Last administered on 02/26/17 08:52; Admin Dose 81 MG; Start 02/18/17 at 09:00 Atorvastatin Calcium (Lipitor) 20 mg HS NGT Last administered on 02/25/17 20: 46; Admin Dose 20 MG; Start 02/17/17 at 21:00 Insulin Aspart (Novolog Insulin Pen) NOVOLOG *MILD* ALGORI... Q6 SC Last administered on 02/20/17 17:54; Admin Dose 1 UNIT; Start 02/20/17 at 00:00 IV Flush (NS 10 ml) 10 ml PRN PRN IV IV PROTOCOL; Start 02/20/17 at 16:00 Lorazepam 1 mg 1 mg Q6H PRN IV AGITATION/ANXIETY Last administered on 21:11; Admin Dose 1 MG; Start 02/20/17 at 21:40 Propofol 100 ml @ 2.07 mls/hr Q12H IV Last administered on 02/25/17 16:25; Admin Dose 8.28 MLS/HR; Start 02/22/17 at 04:00 Fentanyl 100 ml @ 2.5 mls/hr TITRATE IV Last administered on 02/23/17 12:44; Admin Dose 5 MLS/HR; Start 02/22/17 at 11:00 Dexmedetomidine HCl 200 mcg/ Sodium Chloride 50 ml @ 3.45 mls/hr TITRATE IV Last administered on 02/26/17 12:07; Admin Dose 24.15 MLS/HR; Start 02/24/17 at 12:00 Vancomycin HCl/ Sodium Chloride (Vancocin/NS) 250 ml @ 83.333 mls/ hr Q36H IVPB Last administered on 02/27/17 14:52; Admin Dose 83.333 MLS/HR; Start at 14:00 Morphine Sulfate (morphine) 4 mg Q2 PRN IV Severe Pain Last administered on 12:10; Admin Dose 4 MG; Start 02/26/17 at 21:30 Casey Schuler DO Feb 27, 2017 15:29
[2017-02-27] MEDS: ATORVASTATIN 20 MG TAB NGT SCH ×2 (22:27→22:28)
[2017-02-28] VITALS (45 sets, daily range): BP systolic 120–169; BP diastolic 77–105; PULSE 83–110; RESP 16–29
[2017-02-28] MEDS: VASOPRESSIN 60 UNIT in DEXTROSE 5% 57 ML IV SCH ×2 (01:00→13:00)
[2017-02-28 02:08] LABS: AADO2 Arterial 381.9 mmHg (7.0-24.0); Allen Test ACCEPTAB; Arterial Base Excess 0.3 mmol/L (-3.0-3); Arterial COHb 0.3 % (0.0-3.0); Arterial HCO3 24.6 mmol/L (22.0-26.0); Arterial MetHb 0.3 % (0.0-1.5); Arterial Total Hemglobin 10.4 g/dl (12.0-18.0); MODE HFNC
[2017-02-28] MEDS: LEVALBUTEROL (NEB) 0.63 MG/3 ML AMP HHN PRN ×2 (02:19→21:04)
[2017-02-28] MEDS: PROPOFOL 100 ML IV SCH (04:00)
[2017-02-28 04:58] LABS: ADD SCAN DIFF NO
[2017-02-28 05:15] LABS: BASOPHILS % 0.3 % (0.0-2.0); EOSINOPHILS % 0.1 % (0.0-7.0); HEMATOCRIT 29.7 % (42.0-52.0); HEMOGLOBIN 9.3 g/dl (14.0-18.0); LYMPHOCYTES # 0.7 10^3/ul (0.8-2.9); LYMPHOCYTES % 6.2 % (15.0-51.0); MEAN CORPUSCULAR HEMOGLOBIN 31.3 pg (29.0-33.0); MEAN CORPUSCULAR HGB CONC 31.3 g/dl (32.0-37.0); MEAN PLATELET VOLUME 10.5 fl (7.4-10.4); MONOCYTE # 0.7 10^3/ul (0.3-0.9); MONOCYTES % 6.1 % (0.0-11.0); NEUTROPHIL # 9.9 10^3/ul (1.6-7.5); NEUTROPHILS % 86.8 % (39.0-77.0); PLATELET COUNT 286 10^3/UL (140-415); RED BLOOD COUNT 2.97 10^6/ul (4.70-6.10); RED CELL DISTRIBUTION WIDTH 17.2 % (11.5-14.5); WHITE BLOOD COUNT 11.4 10^3/ul (4.8-10.8)
[2017-02-28] MEDS: PIPER-TAZO 2.25 GM (PMX) 50 ML IVPB SCH ×2 (05:22→11:51)
[2017-02-28] MEDS: PANTOPRAZOLE 40 MG INJ IV SCH (05:22)
[2017-02-28] MEDS: FUROSEMIDE 40 MG INJ IV SCH ×2 (05:22→18:17)
[2017-02-28 05:26] LABS: CALCIUM 8.6 mg/dl (8.4-10.2); CREATININE 1.94 mg/dl (0.61-1.24); MAGNESIUM 1.9 mg/dl (1.7-2.5); PHOSPHORUS 4.5 mg/dl (2.5-4.9); POTASSIUM 3.1 mmol/L (3.5-5.1)
[2017-02-28] MEDS: INSULIN ASPART [NOVOLOG] 3 ML PEN SC SCH ×3 (06:00→18:00)
[2017-02-28] MEDS: OCULAR LUBRICANT 3.5 GM OPH OINT BOTH EYES SCH ×3 (06:06→18:16)
[2017-02-28] MEDS: ARTIFICIAL TEARS 15 ML OPH BOTH EYES SCH ×3 (06:06→18:16)
--- NOTE | 2017-02-28 07:42 | PN ---
Date/Time of Note Date/Time of Note DATE: 02/28/17 TIME: 07:39 Assessment/Plan VTE Prophylaxis VTE Prophylaxis Intervention: other Lines/Catheters Urinary Cath still in place: Yes Reason Cath still needed: other (indicate) Assessment/Plan Chief Complaint/Hosp Course 1. Nonoliguric acute kidney injury with previous baseline creatinine 0.8 mg/dL. -Etiology of CROW secondary to ATN due to ischemic hypoperfusion shock. -Urinalysis was reviewed evidence of proteinuria no evidence of active sediment -Renal function has been fluctuating likely due to diuretic therapy -Continue Lasix at current dose, monitor closely -Continue supportive care, renally dose all meds, avoid nephrotoxic Anemia. -Monitor H&H levels Mineral bone disorder -Monitor calcium phosphorus levels Hypokalemia We will replete continue to monitor Hypernatremia Patient with free water deficit of 2-3 L We will start D5 water at 50 cc an hour Monitor serial sodium levels Volume overload -Improving -Continue lasix Cardiac arrest. Patient status post hypothermia protocol -Follow-up with cardiology Respiratory failure, status post extubation Continue high flow oxygen - ABGs reviewed -Follow-up with pulmonary Pneumothorax -Status post chest tube placement, continue to monitor Sepsis status post shock -Cultures positive for bacteremia -Continue antibiotic regimen, off pressors -Follow-up with ID -Monitor closely Problems: Subjective 24 Hr Interval Summary Free Text/Dictation Patient remains critical but stable, patient's on high flow oxygen,. Patient requires aggressive suctioning. Patient continues to have good urinary output Exam/Review of Systems Vital Signs Vitals Vital Signs Date Time Temp Pulse Resp B/P Pulse Ox O2 Delivery O2 Flow Rate FiO2 02/28/17 06:00 94 20 137/93 100 02/28/17 04:45 100 02/28/17 04:00 99.0 High Flow 02/27/17 05:00 15.0 Intake and Output 02/27/17 02/27/17 02/28/17 15:00 23:00 07:00 Intake Total 300 ml 300.666 ml 100 ml Output Total 2954 ml 2085 ml 798 ml Balance -2654 ml -1784.334 ml -698 ml Exam HEENT: Head is normocephalic, NECK: Supple. HEART: Irregular LUNGS: Show diminished breath sounds at base. ABDOMEN: Soft, nontender to palpation without rebound or guarding. EXTREMITIES: Negative for clubbing, cyanosis. DERMATOLOGIC: No rashes. MUSCULOSKELETAL: No joint effusions, NEUROLOGIC: No change in exam. Results Result Diagram: 02/28/17 0400 02/28/17 0400 Results 24 hrs Laboratory Tests Test 02/27/17 12:18 02/27/17 17:45 02/27/17 23:02 02/27/17 23:50 Bedside Glucose 95 96 107 103 Test 02/28/17 01:30 02/28/17 04:00 02/28/17 05:50 Blood Gas Specimen Source Blood arterial Arterial Blood Date Drawn 02/28/2017 1:50:00 AM Arterial Blood pH (Temp corrected) 7.423 Arterial Blood pCO2 (Temp correct) 38.5 Arterial Blood pO2 (Temp corrected) 75.8 L Arterial Blood HCO3 24.6 Arterial Blood Base Excess 0.3 Arterial Blood Oxygen Saturation 94.6 L Chris Test ACCEPTAB Arterial Blood Gas Puncture Site Right Radial Arterial Blood Carboxyhemoglobin 0.3 Arterial Blood Methemoglobin 0.3 Blood Gas A-a O2 Differential 381.9 H Oxyhemoglobin Percent 94.0 Total Hemoglobin 10.4 L Blood Gas Temperature 37.0 Blood Gas Actual Respiration Rate 24 Blood Gas Modality HFNC FiO2 70.0 Blood Gas Notified Whom MG Blood Gas Notified Time 02/28/2017 2:08:08 AM White Blood Count 11.4 H Red Blood Count 2.97 L Hemoglobin 9.3 L Hematocrit 29.7 L Mean Corpuscular Volume 100.0 Mean Corpuscular Hemoglobin 31.3 Mean Corpuscular Hemoglobin Concent 31.3 L Red Cell Distribution Width 17.2 H Platelet Count 286 Mean Platelet Volume 10.5 H Neutrophils % 86.8 H Lymphocytes % 6.2 L Monocytes % 6.1 Eosinophils % 0.1 Basophils % 0.3 Neutrophils # 9.9 H Lymphocytes # 0.7 L Monocytes # 0.7 Eosinophils # 0.0 Basophils # 0.0 Nucleated Red Blood Cells # 0.0 Sodium Level 150 H Potassium Level 3.1 L Chloride Level 105 Carbon Dioxide Level 29 Anion Gap 19 H Blood Urea Nitrogen 33 H Creatinine 1.94 H Glucose Level 101 Calcium Level 8.6 Phosphorus Level 4.5 Magnesium Level 1.9 Bedside Glucose 99 Medications Medications Current Medications Fentanyl (Sublimaze) 25 mcg Q10M PRN IV SEDATION; Start 02/14/17 at 12:30 Ondansetron HCl (Zofran Inj) 4 mg Q6H PRN IV NAUSEA AND/OR VOMITING; Start 02/14 at 16:00 Pantoprazole (Protonix Iv) 40 mg DAILY@06 IV Last administered on 02/28/17 05: 22; Admin Dose 40 MG; Start 02/15/17 at 06:00 Acetaminophen (Tylenol Supp) 650 mg Q4H PRN [place] TEMP > 37C; Start 02/14/17 at 18: 00 Acetaminophen (Tylenol Liquid) 650 mg Q4H PRN PO TEMP > 37C Last administered on 02/21/17 03:16; Admin Dose 650 MG; Start 02/14/17 at 18:00 Eye Lubricant (Akwa Oint) 1 applic Q6 BOTH EYES Last administered on 02/28/17 06:06; Admin Dose 1 APPLIC; Start 02/14/17 at 18:00 Eye Lubricant 2 drop 2 drop Q6 BOTH EYES Last administered on 02/28/17 06:06; Admin Dose 2 DROP; Start 02/14/17 at 18:00 Norepinephrine 16 mg/Dextrose 500 ml @ 0 mls/hr TITRATE IV Last administered on 02/20/17 19:05; Admin Dose 11.25 MLS/HR; Start 02/14/17 at 22:00 Azithromycin 500 mg/Sodium Chloride 250 ml @ 250 mls/hr DAILY IVPB Last administered on 02/27/17 09:19; Admin Dose 250 MLS/HR; Start 02/15/17 at 10:00 Phenylephrine HCl/ Dextrose (Fritz-Syneph/D5W) 500 ml @ 75 mls/hr TITRATE IV ; Start 02/16/17 at 03:30 Miscellaneous Information 1 ea NOTE XX ; Start 02/16/17 at 11:30 Glucose (Glutose) 15 gm Q15M PRN PO DECREASED GLUCOSE; Start 02/16/17 at 11:30 Glucose (Glutose) 22.5 gm Q15M PRN PO DECREASED GLUCOSE; Start 02/16/17 at 11:30 Dextrose (D50w Syringe) 25 ml Q15M PRN IV DECREASED GLUCOSE; Start 02/16/17 at 11:30 Dextrose (D50w Syringe) 50 ml Q15M PRN IV DECREASED GLUCOSE; Start 02/16/17 at 11:30 Glucagon (Glucagen) 1 mg Q15M PRN IM DECREASED GLUCOSE; Start 02/16/17 at 11:30 Glucose 15 gm 15 gm Q15M PRN BUCCAL DECREASED GLUCOSE; Start 02/16/17 at 11:30 Piperacillin Sod/ Tazobactam Sod 50 ml @ 100 mls/hr Q6 IVPB Last administered on 02/28/17 05:22; Admin Dose 100 MLS/HR; Start 02/16/17 at 18:00 Vasopressin/ Dextrose (Vasostrict/D5W) 60 ml @ 1.8 mls/hr Q12H IV ; Start at 13:00 Aspirin (Aspirin) 81 mg DAILY GTB Last administered on 02/26/17 08:52; Admin Dose 81 MG; Start 02/18/17 at 09:00 Atorvastatin Calcium (Lipitor) 20 mg HS NGT Last administered on 02/25/17 20: 46; Admin Dose 20 MG; Start 02/17/17 at 21:00 Insulin Aspart (Novolog Insulin Pen) NOVOLOG *MILD* ALGORI... Q6 SC Last administered on 02/20/17 17:54; Admin Dose 1 UNIT; Start 02/20/17 at 00:00 IV Flush (NS 10 ml) 10 ml PRN PRN IV IV PROTOCOL; Start 02/20/17 at 16:00 Lorazepam 1 mg 1 mg Q6H PRN IV AGITATION/ANXIETY Last administered on 21:11; Admin Dose 1 MG; Start 02/20/17 at 21:40 Propofol 100 ml @ 2.07 mls/hr Q12H IV Last administered on 02/25/17 16:25; Admin Dose 8.28 MLS/HR; Start 02/22/17 at 04:00 Fentanyl 100 ml @ 2.5 mls/hr TITRATE IV Last administered on 02/23/17 12:44; Admin Dose 5 MLS/HR; Start 02/22/17 at 11:00 Dexmedetomidine HCl 200 mcg/ Sodium Chloride 50 ml @ 3.45 mls/hr TITRATE IV Last administered on 02/26/17 12:07; Admin Dose 24.15 MLS/HR; Start 02/24/17 at 12:00 Vancomycin HCl/ Sodium Chloride (Vancocin/NS) 250 ml @ 83.333 mls/ hr Q36H IVPB Last administered on 02/27/17 14:52; Admin Dose 83.333 MLS/HR; Start at 14:00 Morphine Sulfate (morphine) 4 mg Q2 PRN IV Severe Pain Last administered on 22:32; Admin Dose 4 MG; Start 02/26/17 at 21:30 JENSEN OLIVIER DO Feb 28, 2017 07:42
[2017-02-28 07:55] LABS: AADO2 Arterial 568.8 mmHg (7.0-24.0); Allen Test ACCEPTAB; Arterial Base Excess 0.8 mmol/L (-3.0-3); Arterial COHb 0.3 % (0.0-3.0); Arterial Fraction of Oxyhgb 96.9 % (93.0-99.0); Arterial HCO3 24.8 mmol/L (22.0-26.0); Arterial MetHb 0.3 % (0.0-1.5); Arterial Total Hemglobin 10.2 g/dl (12.0-18.0); MODE HFNC
[2017-02-28] MEDS ORDERED: POTASSIUM CHLORIDE 250 ML IVPB ONE (08:00)
--- NOTE | 2017-02-28 08:08 | RADRPT ---
PROCEDURE: XR Chest. CLINICAL INDICATION: Pneumonia, congestive heart failure TECHNIQUE: Single frontal view of the chest was obtained COMPARISON: Chest x-ray 02/27/2017 FINDINGS: The left chest tube and left PICC line are stable in positions. A trace left apical pneumothorax is redemonstrated. The cardiac silhouette is mildly enlarged, unchanged. Patchy opacities scattered throughout both lungs appear unchanged. There is evidence of pulmonary venous congestion. Small bilateral pleural effusions also appear stable. Underlying atelectasis and / or consolidation cannot be excluded. There are degenerative changes of the visualized spine. IMPRESSION: 1. Left chest tube and trace left apical pneumothorax, both stable compared to prior study of 02/27. 2. Mild cardiomegaly and pulmonary vascular congestion with persistent patchy opacities scattered t hroughout both lungs, likely representing a component of interstitial edema, stable. An infectious c omponent cannot be excluded. 3. Stable small bilateral pleural effusions. RPTAT: PP Physician Jovanny Date Time Electronically viewed and signed by Physician Jovanny on 02/28/2017 08:08 [email or web address]
[2017-02-28] MEDS: D5W + KCL 20 MEQ 1,000 ML IV SCH (08:35)
[2017-02-28] MEDS: ASPIRIN 81 MG TAB GTB SCH (09:00)
[2017-02-28] MEDS: AZITHROMYCIN 500 MG in SOD CHLORIDE 0.9% 250 ML IVPB SCH (09:48)
--- NOTE | 2017-02-28 11:24 | CONS ---
Date/Time of Note Date/Time of Note DATE: 02/28/17 TIME: 11:23 Consult Date/Type/Reason Admit Date/Time Feb 14, 2017 at 16:02 Type of Consultation: Pulmonary Subjective Patient awake alert on high flow O2 Mild confusion Currently hemodynamically stable Objective Vital Signs Date Time Temp Pulse Resp B/P Pulse Ox O2 Delivery O2 Flow Rate FiO2 02/28/17 08:00 93 02/28/17 06:00 20 137/93 100 02/28/17 04:45 100 02/28/17 04:00 99.0 High Flow 02/27/17 05:00 15.0 Intake and Output 02/27/17 02/27/17 02/28/17 15:00 23:00 07:00 Intake Total 300 ml 300.666 ml 100 ml Output Total 2954 ml 2085 ml 798 ml Balance -2654 ml -1784.334 ml -698 ml Exam PHYSICAL EXAMINATION GENERAL: Elderly gentleman, on high flow oxygen VITAL SIGNS: see below. HEENT: Pupils equal, round, and reactive to light. CARDIAC: S1, S2, 1/6 systolic ejection murmur CHEST: Diminished air entry bilaterally. ABDOMEN: Mildly distended. Bowel sounds present no guarding or rebound EXTREMITIES: No cyanosis, clubbing edema +1 NEUROLOGIC: Generalized weakness Results/Medications Result Diagram: 02/28/17 0400 02/28/17 0400 Results 24 hrs Laboratory Tests Test 02/27/17 12:18 02/27/17 17:45 02/27/17 23:02 02/27/17 23:50 Bedside Glucose 95 96 107 103 Test 02/28/17 01:30 02/28/17 04:00 02/28/17 05:50 02/28/17 07:00 Blood Gas Specimen Source Blood arterial Blood arterial Arterial Blood Date Drawn 02/28/2017 1:50:00 AM 02/28/2017 7:00:34 AM Arterial Blood pH (Temp corrected) 7.423 7.441 Arterial Blood pCO2 (Temp correct) 38.5 37.3 Arterial Blood pO2 (Temp corrected) 75.8 L 106.9 H Arterial Blood HCO3 24.6 24.8 Arterial Blood Base Excess 0.3 0.8 Arterial Blood Oxygen Saturation 94.6 L 97.5 Chris Test ACCEPTAB ACCEPTAB Arterial Blood Gas Puncture Site Right Radial Right Radial Arterial Blood Carboxyhemoglobin 0.3 0.3 Arterial Blood Methemoglobin 0.3 0.3 Blood Gas A-a O2 Differential 381.9 H 568.8 H Oxyhemoglobin Percent 94.0 96.9 Total Hemoglobin 10.4 L 10.2 L Blood Gas Temperature 37.0 37.0 Blood Gas Actual Respiration Rate 24 Blood Gas Modality HFNC HFNC FiO2 70.0 100.0 Blood Gas Notified Whom MG JLD Blood Gas Notified Time 02/28/2017 2:08:08 AM 02/28/2017 7:55:11 AM White Blood Count 11.4 H Red Blood Count 2.97 L Hemoglobin 9.3 L Hematocrit 29.7 L Mean Corpuscular Volume 100.0 Mean Corpuscular Hemoglobin 31.3 Mean Corpuscular Hemoglobin Concent 31.3 L Red Cell Distribution Width 17.2 H Platelet Count 286 Mean Platelet Volume 10.5 H Neutrophils % 86.8 H Lymphocytes % 6.2 L Monocytes % 6.1 Eosinophils % 0.1 Basophils % 0.3 Neutrophils # 9.9 H Lymphocytes # 0.7 L Monocytes # 0.7 Eosinophils # 0.0 Basophils # 0.0 Nucleated Red Blood Cells # 0.0 Sodium Level 150 H Potassium Level 3.1 L Chloride Level 105 Carbon Dioxide Level 29 Anion Gap 19 H Blood Urea Nitrogen 33 H Creatinine 1.94 H Glucose Level 101 Calcium Level 8.6 Phosphorus Level 4.5 Magnesium Level 1.9 Bedside Glucose 99 Medications Current Medications Ondansetron HCl (Zofran Inj) 4 mg Q6H PRN IV NAUSEA AND/OR VOMITING; Start 02/14 at 16:00 Pantoprazole (Protonix Iv) 40 mg DAILY@06 IV Last administered on 02/28/17 05: 22; Admin Dose 40 MG; Start 02/15/17 at 06:00 Acetaminophen (Tylenol Supp) 650 mg Q4H PRN OR TEMP > 37C; Start 02/14/17 at 18: 00 Acetaminophen (Tylenol Liquid) 650 mg Q4H PRN PO TEMP > 37C Last administered on 02/21/17 03:16; Admin Dose 650 MG; Start 02/14/17 at 18:00 Eye Lubricant (Akwa Oint) 1 applic Q6 BOTH EYES Last administered on 02/28/17 06:06; Admin Dose 1 APPLIC; Start 02/14/17 at 18:00 Eye Lubricant 2 drop 2 drop Q6 BOTH EYES Last administered on 02/28/17 06:06; Admin Dose 2 DROP; Start 02/14/17 at 18:00 Norepinephrine 16 mg/Dextrose 500 ml @ 0 mls/hr TITRATE IV Last administered on 02/20/17 19:05; Admin Dose 11.25 MLS/HR; Start 02/14/17 at 22:00 Azithromycin 500 mg/Sodium Chloride 250 ml @ 250 mls/hr DAILY IVPB Last administered on 02/28/17 09:48; Admin Dose 250 MLS/HR; Start 02/15/17 at 10:00 Phenylephrine HCl/ Dextrose (Fritz-Syneph/D5W) 500 ml @ 75 mls/hr TITRATE IV ; Start 02/16/17 at 03:30 Miscellaneous Information 1 ea NOTE XX ; Start 02/16/17 at 11:30 Glucose (Glutose) 15 gm Q15M PRN PO DECREASED GLUCOSE; Start 02/16/17 at 11:30 Glucose (Glutose) 22.5 gm Q15M PRN PO DECREASED GLUCOSE; Start 02/16/17 at 11:30 Dextrose (D50w Syringe) 25 ml Q15M PRN IV DECREASED GLUCOSE; Start 02/16/17 at 11:30 Dextrose (D50w Syringe) 50 ml Q15M PRN IV DECREASED GLUCOSE; Start 02/16/17 at 11:30 Glucagon (Glucagen) 1 mg Q15M PRN IM DECREASED GLUCOSE; Start 02/16/17 at 11:30 Glucose 15 gm 15 gm Q15M PRN BUCCAL DECREASED GLUCOSE; Start 02/16/17 at 11:30 Piperacillin Sod/ Tazobactam Sod 50 ml @ 100 mls/hr Q6 IVPB Last administered on 02/28/17 05:22; Admin Dose 100 MLS/HR; Start 02/16/17 at 18:00 Vasopressin/ Dextrose (Vasostrict/D5W) 60 ml @ 1.8 mls/hr Q12H IV ; Start at 13:00 Aspirin (Aspirin) 81 mg DAILY GTB Last administered on 02/26/17 08:52; Admin Dose 81 MG; Start 02/18/17 at 09:00 Atorvastatin Calcium (Lipitor) 20 mg HS NGT Last administered on 02/25/17 20: 46; Admin Dose 20 MG; Start 02/17/17 at 21:00 Insulin Aspart (Novolog Insulin Pen) NOVOLOG *MILD* ALGORI... Q6 SC Last administered on 02/20/17 17:54; Admin Dose 1 UNIT; Start 02/20/17 at 00:00 IV Flush (NS 10 ml) 10 ml PRN PRN IV IV PROTOCOL; Start 02/20/17 at 16:00 Lorazepam 1 mg 1 mg Q6H PRN IV AGITATION/ANXIETY Last administered on 21:11; Admin Dose 1 MG; Start 02/20/17 at 21:40 Vancomycin HCl/ Sodium Chloride (Vancocin/NS) 250 ml @ 83.333 mls/ hr Q36H IVPB Last administered on 02/27/17 14:52; Admin Dose 83.333 MLS/HR; Start at 14:00 Morphine Sulfate 4 mg 4 mg Q2 PRN IV Severe Pain Last administered on 22:32; Admin Dose 4 MG; Start 02/26/17 at 21:30 Potassium Chloride/Dextrose 1,000 ml @ 50 mls/hr Q20H IV Last administered on 02/28/17 08:35; Admin Dose 50 MLS/HR; Start 02/28/17 at 08:00 Potassium Chloride (KCl 40 MEQ/250 ML NS) 250 ml @ 62.5 mls/hr ONCE ONCE IVPB Last administered on 02/28/17 08:58; Admin Dose 62.5 MLS/HR; Start 02/28/17 at 08:00; Stop 02/28/17 at 11:59 Assessment/Plan Chief Complaint/Hosp Course IMP: 1. Cardiopulmonary Arrest: query primary cardiac event leading to respiratory failure and multilobar aspiration pneumonia, possible increasing pulmonary edema 2. Respiratory Failure/Vent 3. Multifocal pneumonia--likely aspiration 4. s/p VF 5. ARF 6. Barotrauma--s/p CPR 7. Hypoglycemia 8. Septic shock secondary to above 9. Encephalopathy possibly toxic metabolic. Slowly improving on Precedex. RECS: 1. Continue noninvasive positive pressure ventilation 2. Pulmonary toilet 3. Continue tube feeding if tolerated 4. Lasix twice daily 5. Monitor H&H, transfusion packed red blood cells if continues to drop. 6. DVT and GI prophylaxis. Discussed with staff at bedside 40 min cc time Agree with bioethics consultation Problems: CAS LIMA MD, [facility] Feb 28, 2017 11:24
[2017-02-28] MEDS ORDERED: MAGNESIUM SULFATE 2 GM/50 ML 50 ML IVPB ONE (12:00)
[2017-02-28] MEDS ORDERED: FUROSEMIDE 40 MG INJ IV ONE (12:00)
--- NOTE | 2017-02-28 12:01 | CONS ---
Date/Time of Note Date/Time of Note DATE: 02/28/17 TIME: 11:57 Assessment/Plan Assessment/Plan Additional Assessment/Plan Cardiopulmonary arrest Septic shock Vent dependent respiratory failure Cardiomyopathy with ejection fraction 20% Non-ST elevation [place] Acute kidney injury Acute blood loss anemia Paroxysmal atrial fibrillation -Patient status post hypothermia protocol. -Continue aspirin and statin therapy, no beta-naida secondary to bradycardia, no BERTHA inhibitor secondary to acute kidney injury. Continue diuretics as blood pressure and renal function permits with extra dose of Lasix today given dyspnea noted this morning, supplement potassium to maintain above 4.0 and magnesium above 2.0. Consultation Date/Type/Reason Admit Date/Time Feb 14, 2017 at 16:02 Type of Consultation: cv 24 HR Interval Summary Free Text/Dictation Patient seen and examined. Difficult to communicate with possibly increased shortness of breath Exam/Review of Systems Vital Signs Vitals Vital Signs Date Time Temp Pulse Resp B/P Pulse Ox O2 Delivery O2 Flow Rate FiO2 02/28/17 08:00 93 02/28/17 06:00 20 137/93 100 02/28/17 04:45 100 02/28/17 04:00 99.0 High Flow 02/27/17 05:00 15.0 Intake and Output 02/27/17 02/27/17 02/28/17 15:00 23:00 07:00 Intake Total 300 ml 300.666 ml 100 ml Output Total 2954 ml 2085 ml 798 ml Balance -2654 ml -1784.334 ml -698 ml Exam Awake, intermittently following commands, appears slightly more dyspneic and coughing Constitutional: frail Head: normocephalic Respiratory: other (Coarse breath sounds bilaterally, no wheezing) Cardiovascular: other (S1-S2), regular rate and rhythm Gastrointestinal: bowel sounds, non-tender, soft Extremities: edema Results Result Diagram: 02/28/17 0400 02/28/17 0400 Results 24 hrs Laboratory Tests Test 02/27/17 12:18 02/27/17 17:45 02/27/17 23:02 02/27/17 23:50 Bedside Glucose 95 96 107 103 Test 02/28/17 01:30 02/28/17 04:00 02/28/17 05:50 02/28/17 07:00 Blood Gas Specimen Source Blood arterial Blood arterial Arterial Blood Date Drawn 02/28/2017 1:50:00 AM 02/28/2017 7:00:34 AM Arterial Blood pH (Temp corrected) 7.423 7.441 Arterial Blood pCO2 (Temp correct) 38.5 37.3 Arterial Blood pO2 (Temp corrected) 75.8 L 106.9 H Arterial Blood HCO3 24.6 24.8 Arterial Blood Base Excess 0.3 0.8 Arterial Blood Oxygen Saturation 94.6 L 97.5 Chris Test ACCEPTAB ACCEPTAB Arterial Blood Gas Puncture Site Right Radial Right Radial Arterial Blood Carboxyhemoglobin 0.3 0.3 Arterial Blood Methemoglobin 0.3 0.3 Blood Gas A-a O2 Differential 381.9 H 568.8 H Oxyhemoglobin Percent 94.0 96.9 Total Hemoglobin 10.4 L 10.2 L Blood Gas Temperature 37.0 37.0 Blood Gas Actual Respiration Rate 24 Blood Gas Modality HFNC HFNC FiO2 70.0 100.0 Blood Gas Notified Whom MG JLD Blood Gas Notified Time 02/28/2017 2:08:08 AM 02/28/2017 7:55:11 AM White Blood Count 11.4 H Red Blood Count 2.97 L Hemoglobin 9.3 L Hematocrit 29.7 L Mean Corpuscular Volume 100.0 Mean Corpuscular Hemoglobin 31.3 Mean Corpuscular Hemoglobin Concent 31.3 L Red Cell Distribution Width 17.2 H Platelet Count 286 Mean Platelet Volume 10.5 H Neutrophils % 86.8 H Lymphocytes % 6.2 L Monocytes % 6.1 Eosinophils % 0.1 Basophils % 0.3 Neutrophils # 9.9 H Lymphocytes # 0.7 L Monocytes # 0.7 Eosinophils # 0.0 Basophils # 0.0 Nucleated Red Blood Cells # 0.0 Sodium Level 150 H Potassium Level 3.1 L Chloride Level 105 Carbon Dioxide Level 29 Anion Gap 19 H Blood Urea Nitrogen 33 H Creatinine 1.94 H Glucose Level 101 Calcium Level 8.6 Phosphorus Level 4.5 Magnesium Level 1.9 Bedside Glucose 99 Medications Medications Current Medications Ondansetron HCl (Zofran Inj) 4 mg Q6H PRN IV NAUSEA AND/OR VOMITING; Start 02/14 at 16:00 Pantoprazole (Protonix Iv) 40 mg DAILY@06 IV Last administered on 02/28/17t 05: 22; Admin Dose 40 MG; Start 02/15/17 at 06:00 Acetaminophen (Tylenol Supp) 650 mg Q4H PRN [place] TEMP > 37C; Start 02/14/17 at 18: 00 Acetaminophen (Tylenol Liquid) 650 mg Q4H PRN PO TEMP > 37C Last administered on 02/21/17 03:16; Admin Dose 650 MG; Start 02/14/17 at 18:00 Eye Lubricant (Akwa Oint) 1 applic Q6 BOTH EYES Last administered on 02/28/17 11:51; Admin Dose 1 APPLIC; Start 02/14/17 at 18:00 Eye Lubricant 2 drop 2 drop Q6 BOTH EYES Last administered on 02/28/17 11:52; Admin Dose 2 DROP; Start 02/14/17 at 18:00 Norepinephrine 16 mg/Dextrose 500 ml @ 0 mls/hr TITRATE IV Last administered on 02/20/17 19:05; Admin Dose 11.25 MLS/HR; Start 02/14/17 at 22:00 Azithromycin 500 mg/Sodium Chloride 250 ml @ 250 mls/hr DAILY IVPB Last administered on 02/28/17 09:48; Admin Dose 250 MLS/HR; Start 02/15/17 at 10:00 Phenylephrine HCl/ Dextrose (Fritz-Syneph/D5W) 500 ml @ 75 mls/hr TITRATE IV ; Start 02/16/17 at 03:30 Miscellaneous Information 1 ea NOTE XX ; Start 02/16/17 at 11:30 Glucose (Glutose) 15 gm Q15M PRN PO DECREASED GLUCOSE; Start 02/16/17 at 11:30 Glucose (Glutose) 22.5 gm Q15M PRN PO DECREASED GLUCOSE; Start 02/16/17 at 11:30 Dextrose (D50w Syringe) 25 ml Q15M PRN IV DECREASED GLUCOSE; Start 02/16/17 at 11:30 Dextrose (D50w Syringe) 50 ml Q15M PRN IV DECREASED GLUCOSE; Start 02/16/17 at 11:30 Glucagon (Glucagen) 1 mg Q15M PRN IM DECREASED GLUCOSE; Start 02/16/17 at 11:30 Glucose 15 gm 15 gm Q15M PRN BUCCAL DECREASED GLUCOSE; Start 02/16/17 at 11:30 Piperacillin Sod/ Tazobactam Sod 50 ml @ 100 mls/hr Q6 IVPB Last administered on 02/28/17 11:51; Admin Dose 100 MLS/HR; Start 02/16/17 at 18:00 Vasopressin/ Dextrose (Vasostrict/D5W) 60 ml @ 1.8 mls/hr Q12H IV ; Start at 13:00 Aspirin (Aspirin) 81 mg DAILY GTB Last administered on 02/26/17 08:52; Admin Dose 81 MG; Start 02/18/17 at 09:00 Atorvastatin Calcium (Lipitor) 20 mg HS NGT Last administered on 02/25/17 20: 46; Admin Dose 20 MG; Start 02/17/17 at 21:00 Insulin Aspart (Novolog Insulin Pen) NOVOLOG *MILD* ALGORI... Q6 SC Last administered on 02/20/17 17:54; Admin Dose 1 UNIT; Start 02/20/17 at 00:00 IV Flush (NS 10 ml) 10 ml PRN PRN IV IV PROTOCOL; Start 02/20/17 at 16:00 Lorazepam 1 mg 1 mg Q6H PRN IV AGITATION/ANXIETY Last administered on 21:11; Admin Dose 1 MG; Start 02/20/17 at 21:40 Vancomycin HCl/ Sodium Chloride (Vancocin/NS) 250 ml @ 83.333 mls/ hr Q36H IVPB Last administered on 02/27/17 14:52; Admin Dose 83.333 MLS/HR; Start at 14:00 Morphine Sulfate 4 mg 4 mg Q2 PRN IV Severe Pain Last administered on 22:32; Admin Dose 4 MG; Start 02/26/17 at 21:30 Potassium Chloride/Dextrose 1,000 ml @ 50 mls/hr Q20H IV Last administered on 02/28/17 08:35; Admin Dose 50 MLS/HR; Start 02/28/17 at 08:00 Potassium Chloride (KCl 40 MEQ/250 ML NS) 250 ml @ 62.5 mls/hr ONCE ONCE IVPB Last administered on 02/28/17 08:58; Admin Dose 62.5 MLS/HR; Start 02/28/17 at 08:00; Stop 02/28/17 at 11:59 Casey Schuler DO Feb 28, 2017 12:01
--- NOTE | 2017-02-28 13:57 | PN ---
Date/Time of Note Date/Time of Note DATE: 02/28/17 TIME: 13:54 Assessment/Plan VTE Prophylaxis VTE Prophylaxis Intervention: SCD's Assessment/Plan Chief Complaint/Hosp Course 1. S/p Cardiac arrest secondary to V-fib status post ACLS with defibrillation and return of circulation -Status post hypothermia protocol / Cardiology following / patient did not meet criteria for emergent cardiac catheterization per interactive designer on-call on arrival 2. Vent dependent resp failure secondary to cardiac arrest-extubated -Continue Lasix -Pulmonology consultation appreciated 3. L sided Rib fractures and Pneumothorax secondary to repeated chest compressions - status post chest tube placement / Pulm managing 4. Sepsis with bilateral Pneumonia likely with a component of aspiration / Coagulase neg bacteremia -Continue vancomycin but DC Zosyn 5. Acute on Chronic Normocytic anemia with thrombocytopenia likely 2/2 Iron deficiency 6. Acute kidney disease on CKD secondary to cardiac arrest -Monitor, nephrology following 7. Reactive Hyperglycemia -Normal BG levels on regular tube feeds / d/c SSI 8. 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 Right hip pain X-ray right hip Prophylaxis: SCD's Discharge planning: Patient will likely need rehab placement upon discharge Problems: Subjective 24 Hr Interval Summary Constitutional: disoriented Exam/Review of Systems Vital Signs Vitals Vital Signs Date Time Temp Pulse Resp B/P Pulse Ox O2 Delivery O2 Flow Rate FiO2 02/28/17 12:00 100 02/28/17 11:30 91 100 02/28/17 06:00 20 137/93 02/28/17 04:00 99.0 High Flow 02/27/17 05:00 15.0 Intake and Output 02/27/17 02/27/17 02/28/17 15:00 23:00 07:00 Intake Total 300 ml 300.666 ml 100 ml Output Total 2954 ml 2085 ml 798 ml Balance -2654 ml -1784.334 ml -698 ml Exam Psych: confusion Respiratory: clear to auscultation Cardiovascular: regular rate and rhythm Gastrointestinal: soft, No distended Musculoskeletal: nl extremities to inspection Results Result Diagram: 02/28/17 0400 02/28/17 0400 Results 24 hrs Laboratory Tests Test 02/27/17 17:45 02/27/17 23:02 02/27/17 23:50 02/28/17 01:30 Bedside Glucose 96 107 103 Blood Gas Specimen Source Blood arterial Arterial Blood Date Drawn 02/28/2017 1:50:00 AM Arterial Blood pH (Temp corrected) 7.423 Arterial Blood pCO2 (Temp correct) 38.5 Arterial Blood pO2 (Temp corrected) 75.8 L Arterial Blood HCO3 24.6 Arterial Blood Base Excess 0.3 Arterial Blood Oxygen Saturation 94.6 L Chris Test ACCEPTAB Arterial Blood Gas Puncture Site Right Radial Arterial Blood Carboxyhemoglobin 0.3 Arterial Blood Methemoglobin 0.3 Blood Gas A-a O2 Differential 381.9 H Oxyhemoglobin Percent 94.0 Total Hemoglobin 10.4 L Blood Gas Temperature 37.0 Blood Gas Actual Respiration Rate 24 Blood Gas Modality HFNC FiO2 70.0 Blood Gas Notified Whom MG Blood Gas Notified Time 02/28/2017 2:08:08 AM Test 02/28/17 04:00 02/28/17 05:50 02/28/17 07:00 02/28/17 12:00 White Blood Count 11.4 H Red Blood Count 2.97 L Hemoglobin 9.3 L Hematocrit 29.7 L Mean Corpuscular Volume 100.0 Mean Corpuscular Hemoglobin 31.3 Mean Corpuscular Hemoglobin Concent 31.3 L Red Cell Distribution Width 17.2 H Platelet Count 286 Mean Platelet Volume 10.5 H Neutrophils % 86.8 H Lymphocytes % 6.2 L Monocytes % 6.1 Eosinophils % 0.1 Basophils % 0.3 Neutrophils # 9.9 H Lymphocytes # 0.7 L Monocytes # 0.7 Eosinophils # 0.0 Basophils # 0.0 Nucleated Red Blood Cells # 0.0 Sodium Level 150 H Potassium Level 3.1 L Chloride Level 105 Carbon Dioxide Level 29 Anion Gap 19 H Blood Urea Nitrogen 33 H Creatinine 1.94 H Glucose Level 101 Calcium Level 8.6 Phosphorus Level 4.5 Magnesium Level 1.9 Bedside Glucose 99 115 Blood Gas Specimen Source Blood arterial Arterial Blood Date Drawn 02/28/2017 7:00:34 AM Arterial Blood pH (Temp corrected) 7.441 Arterial Blood pCO2 (Temp correct) 37.3 Arterial Blood pO2 (Temp corrected) 106.9 H Arterial Blood HCO3 24.8 Arterial Blood Base Excess 0.8 Arterial Blood Oxygen Saturation 97.5 Chris Test ACCEPTAB Arterial Blood Gas Puncture Site Right Radial Arterial Blood Carboxyhemoglobin 0.3 Arterial Blood Methemoglobin 0.3 Blood Gas A-a O2 Differential 568.8 H Oxyhemoglobin Percent 96.9 Total Hemoglobin 10.2 L Blood Gas Temperature 37.0 Blood Gas Modality HFNC FiO2 100.0 Blood Gas Notified Whom JLD Blood Gas Notified Time 02/28/2017 7:55:11 AM Medications Medications Current Medications Ondansetron HCl (Zofran Inj) 4 mg Q6H PRN IV NAUSEA AND/OR VOMITING; Start 02/14 at 16:00 Pantoprazole (Protonix Iv) 40 mg DAILY@06 IV Last administered on 02/28/17 05: 22; Admin Dose 40 MG; Start 02/15/17 at 06:00 Acetaminophen (Tylenol Supp) 650 mg Q4H PRN OR TEMP > 37C; Start 02/14/17 at 18: 00 Acetaminophen (Tylenol Liquid) 650 mg Q4H PRN PO TEMP > 37C Last administered on 02/21/17 03:16; Admin Dose 650 MG; Start 02/14/17 at 18:00 Eye Lubricant (Akwa Oint) 1 applic Q6 BOTH EYES Last administered on 02/28/17 11:51; Admin Dose 1 APPLIC; Start 02/14/17 at 18:00 Eye Lubricant 2 drop 2 drop Q6 BOTH EYES Last administered on 02/28/17 11:52; Admin Dose 2 DROP; Start 02/14/17 at 18:00 Norepinephrine 16 mg/Dextrose 500 ml @ 0 mls/hr TITRATE IV Last administered on 02/20/17 19:05; Admin Dose 11.25 MLS/HR; Start 02/14/17 at 22:00 Azithromycin 500 mg/Sodium Chloride 250 ml @ 250 mls/hr DAILY IVPB Last administered on 02/28/17 09:48; Admin Dose 250 MLS/HR; Start 02/15/17 at 10:00 Phenylephrine HCl/ Dextrose (Fritz-Syneph/D5W) 500 ml @ 75 mls/hr TITRATE IV ; Start 02/16/17 at 03:30 Miscellaneous Information 1 ea NOTE XX ; Start 02/16/17 at 11:30 Glucose (Glutose) 15 gm Q15M PRN PO DECREASED GLUCOSE; Start 02/16/17 at 11:30 Glucose (Glutose) 22.5 gm Q15M PRN PO DECREASED GLUCOSE; Start 02/16/17 at 11:30 Dextrose (D50w Syringe) 25 ml Q15M PRN IV DECREASED GLUCOSE; Start 02/16/17 at 11:30 Dextrose (D50w Syringe) 50 ml Q15M PRN IV DECREASED GLUCOSE; Start 02/16/17 at 11:30 Glucagon (Glucagen) 1 mg Q15M PRN IM DECREASED GLUCOSE; Start 02/16/17 at 11:30 Glucose 15 gm 15 gm Q15M PRN BUCCAL DECREASED GLUCOSE; Start 02/16/17 at 11:30 Piperacillin Sod/ Tazobactam Sod 50 ml @ 100 mls/hr Q6 IVPB Last administered on 02/28/17 11:51; Admin Dose 100 MLS/HR; Start 02/16/17 at 18:00 Vasopressin/ Dextrose (Vasostrict/D5W) 60 ml @ 1.8 mls/hr Q12H IV ; Start at 13:00 Aspirin (Aspirin) 81 mg DAILY GTB Last administered on 02/26/17 08:52; Admin Dose 81 MG; Start 02/18/17 at 09:00 Atorvastatin Calcium (Lipitor) 20 mg HS NGT Last administered on 02/25/17 20: 46; Admin Dose 20 MG; Start 02/17/17 at 21:00 Insulin Aspart (Novolog Insulin Pen) NOVOLOG *MILD* ALGORI... Q6 SC Last administered on 02/20/17 17:54; Admin Dose 1 UNIT; Start 02/20/17 at 00:00 IV Flush (NS 10 ml) 10 ml PRN PRN IV IV PROTOCOL; Start 02/20/17 at 16:00 Lorazepam 1 mg 1 mg Q6H PRN IV AGITATION/ANXIETY Last administered on 21:11; Admin Dose 1 MG; Start 02/20/17 at 21:40 Vancomycin HCl/ Sodium Chloride (Vancocin/NS) 250 ml @ 83.333 mls/ hr Q36H IVPB Last administered on 02/27/17 14:52; Admin Dose 83.333 MLS/HR; Start at 14:00 Morphine Sulfate 4 mg 4 mg Q2 PRN IV Severe Pain Last administered on 22:32; Admin Dose 4 MG; Start 02/26/17 at 21:30 Potassium Chloride/Dextrose 1,000 ml @ 50 mls/hr Q20H IV Last administered on 02/28/17 08:35; Admin Dose 50 MLS/HR; Start 02/28/17 at 08:00 Magnesium Sulfate (Magnesium Sulfate 2 Gm/50 ml) 50 ml @ 25 mls/hr ONCE ONCE IVPB Last administered on 02/28/17 13:31; Admin Dose 25 MLS/HR; Start at 12:00; Stop 02/28/17 at 13:59 GUILHERME YATES Feb 28, 2017 13:57
[2017-02-28] MEDS: morphine 4 MG/ML VIAL IV PRN (20:44)
[2017-03-01] VITALS (37 sets, daily range): BP systolic 70–167; BP diastolic 15–140; PULSE 82–109; RESP 16–33
[2017-03-01] MEDS: OCULAR LUBRICANT 3.5 GM OPH OINT BOTH EYES SCH ×4 (00:45→18:24)
[2017-03-01] MEDS: ARTIFICIAL TEARS 15 ML OPH BOTH EYES SCH ×4 (00:45→18:24)
[2017-03-01] MEDS: VASOPRESSIN 60 UNIT in DEXTROSE 5% 57 ML IV SCH ×2 (01:00→13:00)
[2017-03-01] MEDS: LEVALBUTEROL (NEB) 0.63 MG/3 ML AMP HHN PRN (01:28)
[2017-03-01] MEDS: VANCOMYCIN 1.25 GM in SOD CHLORIDE 0.9% 250 ML IVPB SCH (02:07)
[2017-03-01 05:09] LABS: BASOPHILS % 0.2 % (0.0-2.0); EOSINOPHILS % 0.1 % (0.0-7.0); HEMOGLOBIN 10.2 g/dl (14.0-18.0); LYMPHOCYTES # 0.7 10^3/ul (0.8-2.9); LYMPHOCYTES % 6.1 % (15.0-51.0); MEAN CORPUSCULAR HEMOGLOBIN 31.5 pg (29.0-33.0); MEAN CORPUSCULAR HGB CONC 31.9 g/dl (32.0-37.0); MEAN CORPUSCULAR VOLUME 98.8 fl (82.0-101.0); MONOCYTE # 0.8 10^3/ul (0.3-0.9); MONOCYTES % 7.3 % (0.0-11.0); NEUTROPHIL # 9.4 10^3/ul (1.6-7.5); NEUTROPHILS % 85.5 % (39.0-77.0); PLATELET COUNT 288 10^3/UL (140-415); RED BLOOD COUNT 3.24 10^6/ul (4.70-6.10); RED CELL DISTRIBUTION WIDTH 16.8 % (11.5-14.5)
[2017-03-01 05:38] LABS: CALCIUM 8.7 mg/dl (8.4-10.2); CREATININE 1.85 mg/dl (0.61-1.24)
[2017-03-01 05:41] LABS: POTASSIUM 2.9 mmol/L (3.5-5.1)
[2017-03-01] MEDS: INSULIN ASPART [NOVOLOG] 3 ML PEN SC SCH ×4 (06:00→18:00)
[2017-03-01] MEDS ORDERED: POTASSIUM CHLORIDE 50 ML IVPB ONE (06:00)
[2017-03-01] MEDS: FUROSEMIDE 40 MG INJ IV SCH ×2 (06:00→18:24)
[2017-03-01] MEDS: D5W + KCL 20 MEQ 1,000 ML IV SCH (06:49)
[2017-03-01] MEDS: PANTOPRAZOLE 40 MG INJ IV SCH (06:49)
--- NOTE | 2017-03-01 07:56 | PN ---
Date/Time of Note Date/Time of Note DATE: 03/01/17 TIME: 07:54 Assessment/Plan VTE Prophylaxis VTE Prophylaxis Intervention: other Lines/Catheters IV Catheter Type (from Nrsg): PICC Line Central line still needed: Yes Urinary Cath still in place: Yes Reason Cath still needed: other (indicate) Assessment/Plan Chief Complaint/Hosp Course 1. Nonoliguric acute kidney injury with previous baseline creatinine 0.8 mg/dL. -Etiology of CROW secondary to ATN due to ischemic hypoperfusion shock. -Urinalysis was reviewed evidence of proteinuria no evidence of active sediment -Renal function has been fluctuating but overall stable, likely due to diuretic therapy -Continue Lasix at current dose, monitor closely -Continue supportive care, renally dose all meds, avoid nephrotoxic Anemia. -Monitor H&H levels Mineral bone disorder -Monitor calcium phosphorus levels Hypokalemia We will replete continue to monitor Hypernatremia, improving Patient with free water deficit of 2-3 L We will start D5 water at 50 cc an hour Monitor serial sodium levels Volume overload -Improving -Continue lasix Cardiac arrest. Patient status post hypothermia protocol -Follow-up with cardiology Respiratory failure, status post extubation Continue high flow oxygen - ABGs reviewed -Follow-up with pulmonary Pneumothorax -Status post chest tube placement, continue to monitor Sepsis status post shock -Cultures positive for bacteremia -Continue antibiotic regimen, off pressors -Follow-up with ID -Monitor closely Problems: Subjective 24 Hr Interval Summary Free Text/Dictation Patient seen and examined Remains critically ill Good urinary output Receiving potassium chloride No other events noted Exam/Review of Systems Vital Signs Vitals Vital Signs Date Time Temp Pulse Resp B/P Pulse Ox O2 Delivery O2 Flow Rate FiO2 03/01/17 07:03 123/80 03/01/17 04:48 91 90 03/01/17 04:00 96 03/01/17 02:15 99.0 03/01/17 02:00 21 High Flow 02/27/17 05:00 15.0 Intake and Output 02/28/17 02/28/17 03/01/17 15:00 23:00 07:00 Intake Total 875 ml 450 ml Output Total 1973 ml 2784 ml 1160 ml Balance -1098 ml -2334 ml -1160 ml Exam HEENT: Head is normocephalic, NECK: Supple. HEART: Irregular LUNGS: Show diminished breath sounds at base. ABDOMEN: Soft, nontender to palpation without rebound or guarding. EXTREMITIES: Negative for clubbing, cyanosis. DERMATOLOGIC: No rashes. MUSCULOSKELETAL: No joint effusions, NEUROLOGIC: No change in exam. Results Result Diagram: 03/01/17 0455 03/01/17 0455 Results 24 hrs Laboratory Tests Test 02/28/17 12:00 02/28/17 18:20 02/28/17 23:59 03/01/17 04:55 Bedside Glucose 115 127 129 White Blood Count 11.0 H Red Blood Count 3.24 L Hemoglobin 10.2 L Hematocrit 32.0 L Mean Corpuscular Volume 98.8 Mean Corpuscular Hemoglobin 31.5 Mean Corpuscular Hemoglobin Concent 31.9 L Red Cell Distribution Width 16.8 H Platelet Count 288 Mean Platelet Volume 10.0 Neutrophils % 85.5 H Lymphocytes % 6.1 L Monocytes % 7.3 Eosinophils % 0.1 Basophils % 0.2 Nucleated Red Blood Cells % 0.0 Neutrophils # 9.4 H Lymphocytes # 0.7 L Monocytes # 0.8 Eosinophils # 0.0 Basophils # 0.0 Nucleated Red Blood Cells # 0.0 Sodium Level 148 H Potassium Level 2.9 *L Chloride Level 101 Carbon Dioxide Level 33 H Anion Gap 17 H Blood Urea Nitrogen 30 H Creatinine 1.85 H Glucose Level 133 Calcium Level 8.7 Magnesium Level 2.1 Test 03/01/17 06:45 Bedside Glucose 129 Medications Medications Current Medications Ondansetron HCl (Zofran Inj) 4 mg Q6H PRN IV NAUSEA AND/OR VOMITING; Start 02/14 at 16:00 Pantoprazole (Protonix Iv) 40 mg DAILY@06 IV Last administered on 03/01/17 06: 49; Admin Dose 40 MG; Start 02/15/17 at 06:00 Acetaminophen (Tylenol Supp) 650 mg Q4H PRN MO TEMP > 37C; Start 02/14/17 at 18: 00 Acetaminophen (Tylenol Liquid) 650 mg Q4H PRN PO TEMP > 37C Last administered on 02/21/17 03:16; Admin Dose 650 MG; Start 02/14/17 at 18:00 Eye Lubricant (Akwa Oint) 1 applic Q6 BOTH EYES Last administered on 03/01/17 06:49; Admin Dose 1 APPLIC; Start 02/14/17 at 18:00 Eye Lubricant 2 drop 2 drop Q6 BOTH EYES Last administered on 03/01/17 06:49; Admin Dose 2 DROP; Start 02/14/17 at 18:00 Norepinephrine 16 mg/Dextrose 500 ml @ 0 mls/hr TITRATE IV Last administered on 02/20/17 19:05; Admin Dose 11.25 MLS/HR; Start 02/14/17 at 22:00 Azithromycin 500 mg/Sodium Chloride 250 ml @ 250 mls/hr DAILY IVPB Last administered on 02/28/17 09:48; Admin Dose 250 MLS/HR; Start 02/15/17 at 10:00 Phenylephrine HCl/ Dextrose (Fritz-Syneph/D5W) 500 ml @ 75 mls/hr TITRATE IV ; Start 02/16/17 at 03:30 Miscellaneous Information 1 ea NOTE XX ; Start 02/16/17 at 11:30 Glucose (Glutose) 15 gm Q15M PRN PO DECREASED GLUCOSE; Start 02/16/17 at 11:30 Glucose (Glutose) 22.5 gm Q15M PRN PO DECREASED GLUCOSE; Start 02/16/17 at 11:30 Dextrose (D50w Syringe) 25 ml Q15M PRN IV DECREASED GLUCOSE; Start 02/16/17 at 11:30 Dextrose (D50w Syringe) 50 ml Q15M PRN IV DECREASED GLUCOSE; Start 02/16/17 at 11:30 Glucagon (Glucagen) 1 mg Q15M PRN IM DECREASED GLUCOSE; Start 02/16/17 at 11:30 Glucose 15 gm 15 gm Q15M PRN BUCCAL DECREASED GLUCOSE; Start 02/16/17 at 11:30 Vasopressin/ Dextrose (Vasostrict/D5W) 60 ml @ 1.8 mls/hr Q12H IV ; Start at 13:00 Aspirin (Aspirin) 81 mg DAILY GTB Last administered on 02/26/17 08:52; Admin Dose 81 MG; Start 02/18/17 at 09:00 Atorvastatin Calcium (Lipitor) 20 mg HS NGT Last administered on 02/25/17 20: 46; Admin Dose 20 MG; Start 02/17/17 at 21:00 Insulin Aspart (Novolog Insulin Pen) NOVOLOG *MILD* ALGORI... Q6 SC Last administered on 02/20/17 17:54; Admin Dose 1 UNIT; Start 02/20/17 at 00:00 IV Flush (NS 10 ml) 10 ml PRN PRN IV IV PROTOCOL; Start 02/20/17 at 16:00 Lorazepam 1 mg 1 mg Q6H PRN IV AGITATION/ANXIETY Last administered on 21:11; Admin Dose 1 MG; Start 02/20/17 at 21:40 Vancomycin HCl/ Sodium Chloride (Vancocin/NS) 250 ml @ 83.333 mls/ hr Q36H IVPB Last administered on 03/01/17 02:07; Admin Dose 83.333 MLS/HR; Start at 14:00 Morphine Sulfate 4 mg 4 mg Q2 PRN IV Severe Pain Last administered on 20:44; Admin Dose 4 MG; Start 02/26/17 at 21:30 Potassium Chloride/Dextrose 1,000 ml @ 50 mls/hr Q20H IV Last administered on 03/01/17 06:49; Admin Dose 50 MLS/HR; Start 02/28/17 at 08:00 Potassium Chloride 50 ml @ 25 mls/hr ONCE ONCE IVPB Last administered on 07:09; Admin Dose 25 MLS/HR; Start 03/01/17 at 06:00; Stop 03/01/17 at 07: 59 Potassium Chloride (KCl 40 MEQ/250 ML NS) 250 ml @ 62.5 mls/hr ONCE ONCE IVPB ; Start 03/01/17 at 08:00; Stop 03/01/17 at 11:59 JENSEN OLIVIER DO Mar 01, 2017 07:56
[2017-03-01] MEDS ORDERED: POTASSIUM CHLORIDE 250 ML IVPB ONE (08:00)
--- NOTE | 2017-03-01 08:31 | CONS ---
Date/Time of Note Date/Time of Note DATE: 03/01/17 TIME: 08:29 Consultation Date/Type/Reason Admit Date/Time Feb 14, 2017 at 16:02 Type of Consultation: Palliative care 24 HR Interval Summary Free Text/Dictation I spoke with Dr. Hawk and Dr. Lynn sales ledger clerk of bioethics committee. Patient's case was referred to bioethics committee meeting for consideration of color change. Exam/Review of Systems Vital Signs Vitals Vital Signs Date Time Temp Pulse Resp B/P Pulse Ox O2 Delivery O2 Flow Rate FiO2 03/01/17 08:01 98.8 89 28 112/72 96 BIPAP 03/01/17 04:48 90 02/27/17 05:00 15.0 Intake and Output 02/28/17 02/28/17 03/01/17 15:00 23:00 07:00 Intake Total 875 ml 450 ml 400 ml Output Total 1973 ml 2784 ml 1240 ml Balance -1098 ml -2334 ml -840 ml Results Result Diagram: 03/01/17 0455 03/01/17 0455 Results 24 hrs Laboratory Tests Test 02/28/17 12:00 02/28/17 18:20 02/28/17 23:59 03/01/17 04:55 Bedside Glucose 115 127 129 White Blood Count 11.0 H Red Blood Count 3.24 L Hemoglobin 10.2 L Hematocrit 32.0 L Mean Corpuscular Volume 98.8 Mean Corpuscular Hemoglobin 31.5 Mean Corpuscular Hemoglobin Concent 31.9 L Red Cell Distribution Width 16.8 H Platelet Count 288 Mean Platelet Volume 10.0 Neutrophils % 85.5 H Lymphocytes % 6.1 L Monocytes % 7.3 Eosinophils % 0.1 Basophils % 0.2 Nucleated Red Blood Cells % 0.0 Neutrophils # 9.4 H Lymphocytes # 0.7 L Monocytes # 0.8 Eosinophils # 0.0 Basophils # 0.0 Nucleated Red Blood Cells # 0.0 Sodium Level 148 H Potassium Level 2.9 *L Chloride Level 101 Carbon Dioxide Level 33 H Anion Gap 17 H Blood Urea Nitrogen 30 H Creatinine 1.85 H Glucose Level 133 Calcium Level 8.7 Magnesium Level 2.1 Test 03/01/17 06:45 Bedside Glucose 129 Medications Medications Current Medications Ondansetron HCl (Zofran Inj) 4 mg Q6H PRN IV NAUSEA AND/OR VOMITING; Start 02/14 at 16:00 Pantoprazole (Protonix Iv) 40 mg DAILY@06 IV Last administered on 03/01/17 06: 49; Admin Dose 40 MG; Start 02/15/17 at 06:00 Acetaminophen (Tylenol Supp) 650 mg Q4H PRN SC TEMP > 37C; Start 02/14/17 at 18: 00 Acetaminophen (Tylenol Liquid) 650 mg Q4H PRN PO TEMP > 37C Last administered on 02/21/17 03:16; Admin Dose 650 MG; Start 02/14/17 at 18:00 Eye Lubricant (Akwa Oint) 1 applic Q6 BOTH EYES Last administered on 03/01/17 06:49; Admin Dose 1 APPLIC; Start 02/14/17 at 18:00 Eye Lubricant 2 drop 2 drop Q6 BOTH EYES Last administered on 03/01/17 06:49; Admin Dose 2 DROP; Start 02/14/17 at 18:00 Norepinephrine 16 mg/Dextrose 500 ml @ 0 mls/hr TITRATE IV Last administered on 02/20/17 19:05; Admin Dose 11.25 MLS/HR; Start 02/14/17 at 22:00 Azithromycin 500 mg/Sodium Chloride 250 ml @ 250 mls/hr DAILY IVPB Last administered on 02/28/17 09:48; Admin Dose 250 MLS/HR; Start 02/15/17 at 10:00 Phenylephrine HCl/ Dextrose (Fritz-Syneph/D5W) 500 ml @ 75 mls/hr TITRATE IV ; Start 02/16/17 at 03:30 Miscellaneous Information 1 ea NOTE XX ; Start 02/16/17 at 11:30 Glucose (Glutose) 15 gm Q15M PRN PO DECREASED GLUCOSE; Start 02/16/17 at 11:30 Glucose (Glutose) 22.5 gm Q15M PRN PO DECREASED GLUCOSE; Start 02/16/17 at 11:30 Dextrose (D50w Syringe) 25 ml Q15M PRN IV DECREASED GLUCOSE; Start 02/16/17 at 11:30 Dextrose (D50w Syringe) 50 ml Q15M PRN IV DECREASED GLUCOSE; Start 02/16/17 at 11:30 Glucagon (Glucagen) 1 mg Q15M PRN IM DECREASED GLUCOSE; Start 02/16/17 at 11:30 Glucose 15 gm 15 gm Q15M PRN BUCCAL DECREASED GLUCOSE; Start 02/16/17 at 11:30 Vasopressin/ Dextrose (Vasostrict/D5W) 60 ml @ 1.8 mls/hr Q12H IV ; Start at 13:00 Aspirin (Aspirin) 81 mg DAILY GTB Last administered on 02/26/17 08:52; Admin Dose 81 MG; Start 02/18/17 at 09:00 Atorvastatin Calcium (Lipitor) 20 mg HS NGT Last administered on 02/25/17 20: 46; Admin Dose 20 MG; Start 02/17/17 at 21:00 Insulin Aspart (Novolog Insulin Pen) NOVOLOG *MILD* ALGORI... Q6 SC Last administered on 02/20/17 17:54; Admin Dose 1 UNIT; Start 02/20/17 at 00:00 IV Flush (NS 10 ml) 10 ml PRN PRN IV IV PROTOCOL; Start 02/20/17 at 16:00 Lorazepam 1 mg 1 mg Q6H PRN IV AGITATION/ANXIETY Last administered on 21:11; Admin Dose 1 MG; Start 02/20/17 at 21:40 Vancomycin HCl/ Sodium Chloride (Vancocin/NS) 250 ml @ 83.333 mls/ hr Q36H IVPB Last administered on 03/01/17 02:07; Admin Dose 83.333 MLS/HR; Start at 14:00 Morphine Sulfate 4 mg 4 mg Q2 PRN IV Severe Pain Last administered on 20:44; Admin Dose 4 MG; Start 02/26/17 at 21:30 Potassium Chloride/Dextrose 1,000 ml @ 50 mls/hr Q20H IV Last administered on 03/01/17 06:49; Admin Dose 50 MLS/HR; Start 02/28/17 at 08:00 Potassium Chloride (KCl 40 MEQ/250 ML NS) 250 ml @ 62.5 mls/hr ONCE ONCE IVPB ; Start 03/01/17 at 08:00; Stop 03/01/17 at 11:59 SPARKLE RAE Mar 01, 2017 08:31
[2017-03-01 08:58] LABS: AADO2 Arterial 427.4 mmHg (7.0-24.0); Allen Test ACCEPTAB; Arterial Base Excess 2.2 mmol/L (-3.0-3); Arterial COHb 0.3 % (0.0-3.0); Arterial Fraction of Oxyhgb 98.1 % (93.0-99.0); Arterial HCO3 27.5 mmol/L (22.0-26.0); Arterial MetHb 0.3 % (0.0-1.5); Blood Gas IEPAP 20/5; Blood Gas PS 15; MODE MASK - BIPAP
[2017-03-01] MEDS: ASPIRIN 81 MG TAB GTB SCH (09:00)
[2017-03-01] MEDS: AZITHROMYCIN 500 MG in SOD CHLORIDE 0.9% 250 ML IVPB SCH (09:12)
--- NOTE | 2017-03-01 09:36 | CONS ---
Date/Time of Note Date/Time of Note DATE: 03/01/17 TIME: 09:34 Assessment/Plan Assessment/Plan Additional Assessment/Plan Assessment and recommendations; 1. patient admitted for cardiac arrest status post CPR and status post respiratory failure, status post extubation. 2. Multifocal pneumonia, currently requiring BiPAP intermittently. 3. Some element of anoxic instability with interval improvement. Next Continue current treatment. Obtain a follow-up chest x-ray. Continue BiPAP for now. If the patient decompensates he will require to be reintubated. Prognosis is guarded. Consultation Date/Type/Reason Admit Date/Time Feb 14, 2017 at 16:02 Initial Consult Date Type of Consultation: Pulmonary/critical care 24 HR Interval Summary Free Text/Dictation Patient condition is tenuous at best. Still requiring BiPAP off and on. Remains awake and alert. Complains of very mild shortness of breath. General exam; elderly male, awake currently in no distress. Exam/Review of Systems Vital Signs Vitals Vital Signs Date Time Temp Pulse Resp B/P Pulse Ox O2 Delivery O2 Flow Rate FiO2 03/01/17 08:01 98.8 89 28 112/72 96 BIPAP 03/01/17 04:48 90 02/27/17 05:00 15.0 Intake and Output 02/28/17 02/28/17 03/01/17 15:00 23:00 07:00 Intake Total 875 ml 450 ml 400 ml Output Total 1973 ml 2784 ml 1240 ml Balance -1098 ml -2334 ml -840 ml Exam HEENT exam; supple neck, no JVD. No lymphadenopathy. Midline trachea. No thyromegaly. Patient has multiple carious teeth. Pupils are small bilaterally. Chest exam; diminished but clear breath sound. S1-S2 audible, no murmurs. Regular rhythm. Abdomen exam; soft, nontender. No organomegaly. Bowel sounds audible. Extremity exam; no peripheral edema. PROJECT CONSULTANT exam; patient is awake and follows simple commands. Results Result Diagram: 03/01/17 0455 03/01/17 0455 Results 24 hrs Laboratory Tests Test 02/28/17 12:00 02/28/17 18:20 02/28/17 23:59 03/01/17 04:55 Bedside Glucose 115 127 129 White Blood Count 11.0 H Red Blood Count 3.24 L Hemoglobin 10.2 L Hematocrit 32.0 L Mean Corpuscular Volume 98.8 Mean Corpuscular Hemoglobin 31.5 Mean Corpuscular Hemoglobin Concent 31.9 L Red Cell Distribution Width 16.8 H Platelet Count 288 Mean Platelet Volume 10.0 Neutrophils % 85.5 H Lymphocytes % 6.1 L Monocytes % 7.3 Eosinophils % 0.1 Basophils % 0.2 Nucleated Red Blood Cells % 0.0 Neutrophils # 9.4 H Lymphocytes # 0.7 L Monocytes # 0.8 Eosinophils # 0.0 Basophils # 0.0 Nucleated Red Blood Cells # 0.0 Sodium Level 148 H Potassium Level 2.9 *L Chloride Level 101 Carbon Dioxide Level 33 H Anion Gap 17 H Blood Urea Nitrogen 30 H Creatinine 1.85 H Glucose Level 133 Calcium Level 8.7 Magnesium Level 2.1 Test 03/01/17 06:45 03/01/17 07:00 Bedside Glucose 129 Blood Gas Specimen Source Blood arterial Arterial Blood Date Drawn 03/01/2017 8:30:25 AM Arterial Blood pH (Temp corrected) 7.395 Arterial Blood pCO2 (Temp correct) 45.9 H Arterial Blood pO2 (Temp corrected) 239.7 H Arterial Blood HCO3 27.5 H Arterial Blood Base Excess 2.2 Arterial Blood Oxygen Saturation 98.7 Chris Test ACCEPTAB Arterial Blood Gas Puncture Site Right Radial Arterial Blood Carboxyhemoglobin 0.3 Arterial Blood Methemoglobin 0.3 Blood Gas A-a O2 Differential 427.4 H Oxyhemoglobin Percent 98.1 Total Hemoglobin 11.0 L Blood Gas Temperature 37.0 Blood Gas Respiration Rate 20.0 Blood Gas Actual Respiration Rate 26 Blood Gas Modality MASK - BIPAP FiO2 100.0 Blood Gas Pressure Support 15 Blood Gas IPAP/EPAP Ratio 20/5 Blood Gas Notified Santana TORRES Blood Gas Notified Time 03/01/2017 8:58:32 AM Medications Medications Current Medications Ondansetron HCl (Zofran Inj) 4 mg Q6H PRN IV NAUSEA AND/OR VOMITING; Start 02/14 at 16:00 Pantoprazole (Protonix Iv) 40 mg DAILY@06 IV Last administered on 03/01/17t 06: 49; Admin Dose 40 MG; Start 02/15/17 at 06:00 Acetaminophen (Tylenol Supp) [address] TEMP > 37C; Start 02/14/17 at 18: 00 Acetaminophen (Tylenol Liquid) 650 mg Q4H PRN PO TEMP > 37C Last administered on 02/21/17 03:16; Admin Dose 650 MG; Start 02/14/17 at 18:00 Eye Lubricant (Akwa Oint) 1 applic Q6 BOTH EYES Last administered on 03/01/17 06:49; Admin Dose 1 APPLIC; Start 02/14/17 at 18:00 Eye Lubricant 2 drop 2 drop Q6 BOTH EYES Last administered on 03/01/17 06:49; Admin Dose 2 DROP; Start 02/14/17 at 18:00 Norepinephrine 16 mg/Dextrose 500 ml @ 0 mls/hr TITRATE IV Last administered on 02/20/17 19:05; Admin Dose 11.25 MLS/HR; Start 02/14/17 at 22:00 Azithromycin 500 mg/Sodium Chloride 250 ml @ 250 mls/hr DAILY IVPB Last administered on 03/01/17 09:12; Admin Dose 250 MLS/HR; Start 02/15/17 at 10:00 Phenylephrine HCl/ Dextrose (Fritz-Syneph/D5W) 500 ml @ 75 mls/hr TITRATE IV ; Start 02/16/17 at 03:30 Miscellaneous Information 1 ea NOTE XX ; Start 02/16/17 at 11:30 Glucose (Glutose) 15 gm Q15M PRN PO DECREASED GLUCOSE; Start 02/16/17 at 11:30 Glucose (Glutose) 22.5 gm Q15M PRN PO DECREASED GLUCOSE; Start 02/16/17 at 11:30 Dextrose (D50w Syringe) 25 ml Q15M PRN IV DECREASED GLUCOSE; Start 02/16/17 at 11:30 Dextrose (D50w Syringe) 50 ml Q15M PRN IV DECREASED GLUCOSE; Start 02/16/17 at 11:30 Glucagon (Glucagen) 1 mg Q15M PRN IM DECREASED GLUCOSE; Start 02/16/17 at 11:30 Glucose 15 gm 15 gm Q15M PRN BUCCAL DECREASED GLUCOSE; Start 02/16/17 at 11:30 Vasopressin/ Dextrose (Vasostrict/D5W) 60 ml @ 1.8 mls/hr Q12H IV ; Start at 13:00 Aspirin (Aspirin) 81 mg DAILY GTB Last administered on 02/26/17 08:52; Admin Dose 81 MG; Start 02/18/17 at 09:00 Atorvastatin Calcium (Lipitor) 20 mg HS NGT Last administered on 02/25/17 20: 46; Admin Dose 20 MG; Start 02/17/17 at 21:00 Insulin Aspart (Novolog Insulin Pen) NOVOLOG *MILD* ALGORI... Q6 SC Last administered on 02/20/17 17:54; Admin Dose 1 UNIT; Start 02/20/17 at 00:00 IV Flush (NS 10 ml) 10 ml PRN PRN IV IV PROTOCOL; Start 02/20/17 at 16:00 Lorazepam 1 mg 1 mg Q6H PRN IV AGITATION/ANXIETY Last administered on 21:11; Admin Dose 1 MG; Start 02/20/17 at 21:40 Vancomycin HCl/ Sodium Chloride (Vancocin/NS) 250 ml @ 83.333 mls/ hr Q36H IVPB Last administered on 03/01/17 02:07; Admin Dose 83.333 MLS/HR; Start at 14:00 Morphine Sulfate 4 mg 4 mg Q2 PRN IV Severe Pain Last administered on 20:44; Admin Dose 4 MG; Start 02/26/17 at 21:30 Potassium Chloride/Dextrose 1,000 ml @ 50 mls/hr Q20H IV Last administered on 03/01/17 06:49; Admin Dose 50 MLS/HR; Start 02/28/17 at 08:00 Potassium Chloride (KCl 40 MEQ/250 ML NS) 250 ml @ 62.5 mls/hr ONCE ONCE IVPB Last administered on 03/01/17 09:08; Admin Dose 62.5 MLS/HR; Start 03/01/17 at 08:00; Stop 03/01/17 at 11:59 MARCELINO POZO Mar 01, 2017 09:36
--- NOTE | 2017-03-01 12:35 | PN ---
Date/Time of Note Date/Time of Note DATE: 03/01/17 TIME: 12:34 Assessment/Plan VTE Prophylaxis VTE Prophylaxis Intervention: SCD's Assessment/Plan Chief Complaint/Hosp Course 1. S/p Cardiac arrest secondary to V-fib status post ACLS with defibrillation and return of circulation -Status post hypothermia protocol / Cardiology following / patient did not meet criteria for emergent cardiac catheterization per tear down man on-call on arrival 2. Vent dependent resp failure secondary to cardiac arrest-extubated -Continue Lasix -Pulmonology consultation appreciated 3. L sided Rib fractures and Pneumothorax secondary to repeated chest compressions - status post chest tube placement / Pulm managing 4. Sepsis with bilateral Pneumonia likely with a component of aspiration / Coagulase neg bacteremia -Continue vancomycin but DC Zosyn 5. Acute on Chronic Normocytic anemia with thrombocytopenia likely 2/2 Iron deficiency 6. Acute kidney disease on CKD secondary to cardiac arrest -Monitor, nephrology following 7. Reactive Hyperglycemia -Normal BG levels on regular tube feeds / d/c SSI 8. 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 Right hip pain X-ray right hip Prophylaxis: SCD's Discharge planning: Patient will likely need rehab placement upon discharge Problems: Subjective 24 Hr Interval Summary Constitutional: disoriented Exam/Review of Systems Vital Signs Vitals Vital Signs Date Time Temp Pulse Resp B/P Pulse Ox O2 Delivery O2 Flow Rate FiO2 03/01/17 12:00 85 03/01/17 11:00 31 130/86 92 BIPAP 03/01/17 08:01 98.8 03/01/17 04:48 90 02/27/17 05:00 15.0 Intake and Output 02/28/17 02/28/17 03/01/17 14:59 22:59 06:59 Intake Total 825 ml 450 ml 400 ml Output Total 2145 ml 3004 ml 1340 ml Balance -1320 ml -2554 ml -940 ml Exam Constitutional: non-verbal Respiratory: clear to auscultation Cardiovascular: regular rate and rhythm Gastrointestinal: soft, No distended Musculoskeletal: nl extremities to inspection Results Result Diagram: 03/01/17 0455 03/01/17 0455 Results 24 hrs Laboratory Tests Test 02/28/17 18:20 02/28/17 23:59 03/01/17 04:55 03/01/17 06:45 Bedside Glucose 127 129 129 White Blood Count 11.0 H Red Blood Count 3.24 L Hemoglobin 10.2 L Hematocrit 32.0 L Mean Corpuscular Volume 98.8 Mean Corpuscular Hemoglobin 31.5 Mean Corpuscular Hemoglobin Concent 31.9 L Red Cell Distribution Width 16.8 H Platelet Count 288 Mean Platelet Volume 10.0 Neutrophils % 85.5 H Lymphocytes % 6.1 L Monocytes % 7.3 Eosinophils % 0.1 Basophils % 0.2 Nucleated Red Blood Cells % 0.0 Neutrophils # 9.4 H Lymphocytes # 0.7 L Monocytes # 0.8 Eosinophils # 0.0 Basophils # 0.0 Nucleated Red Blood Cells # 0.0 Sodium Level 148 H Potassium Level 2.9 *L Chloride Level 101 Carbon Dioxide Level 33 H Anion Gap 17 H Blood Urea Nitrogen 30 H Creatinine 1.85 H Glucose Level 133 Calcium Level 8.7 Magnesium Level 2.1 Test 03/01/17 07:00 03/01/17 11:30 Blood Gas Specimen Source Blood arterial Arterial Blood Date Drawn 03/01/2017 8:30:25 AM Arterial Blood pH (Temp corrected) 7.395 Arterial Blood pCO2 (Temp correct) 45.9 H Arterial Blood pO2 (Temp corrected) 239.7 H Arterial Blood HCO3 27.5 H Arterial Blood Base Excess 2.2 Arterial Blood Oxygen Saturation 98.7 Chris Test ACCEPTAB Arterial Blood Gas Puncture Site Right Radial Arterial Blood Carboxyhemoglobin 0.3 Arterial Blood Methemoglobin 0.3 Blood Gas A-a O2 Differential 427.4 H Oxyhemoglobin Percent 98.1 Total Hemoglobin 11.0 L Blood Gas Temperature 37.0 Blood Gas Respiration Rate 20.0 Blood Gas Actual Respiration Rate 26 Blood Gas Modality MASK - BIPAP FiO2 100.0 Blood Gas Pressure Support 15 Blood Gas IPAP/EPAP Ratio 20/5 Blood Gas Notified Whom Karol TORRES Blood Gas Notified Time 03/01/2017 8:58:32 AM Bedside Glucose 139 Medications Medications Current Medications Ondansetron HCl (Zofran Inj) 4 mg Q6H PRN IV NAUSEA AND/OR VOMITING; Start 02/14 at 16:00 Pantoprazole (Protonix Iv) 40 mg DAILY@06 IV Last administered on 03/01/17t 06: 49; Admin Dose 40 MG; Start 02/15/17 at 06:00 Acetaminophen (Tylenol Supp) 650 mg Q4H PRN [place] TEMP > 37C; Start 02/14/17 at 18: 00 Acetaminophen (Tylenol Liquid) 650 mg Q4H PRN PO TEMP > 37C Last administered on 02/21/17 03:16; Admin Dose 650 MG; Start 02/14/17 at 18:00 Eye Lubricant (Akwa Oint) 1 applic Q6 BOTH EYES Last administered on 03/01/17 11:31; Admin Dose 1 APPLIC; Start 02/14/17 at 18:00 Eye Lubricant 2 drop 2 drop Q6 BOTH EYES Last administered on 03/01/17 11:31; Admin Dose 2 DROP; Start 02/14/17 at 18:00 Norepinephrine 16 mg/Dextrose 500 ml @ 0 mls/hr TITRATE IV Last administered on 02/20/17 19:05; Admin Dose 11.25 MLS/HR; Start 02/14/17 at 22:00 Azithromycin 500 mg/Sodium Chloride 250 ml @ 250 mls/hr DAILY IVPB Last administered on 03/01/17 09:12; Admin Dose 250 MLS/HR; Start 02/15/17 at 10:00 Phenylephrine HCl/ Dextrose (Fritz-Syneph/D5W) 500 ml @ 75 mls/hr TITRATE IV ; Start 02/16/17 at 03:30 Miscellaneous Information 1 ea NOTE XX ; Start 02/16/17 at 11:30 Glucose (Glutose) 15 gm Q15M PRN PO DECREASED GLUCOSE; Start 02/16/17 at 11:30 Glucose (Glutose) 22.5 gm Q15M PRN PO DECREASED GLUCOSE; Start 02/16/17 at 11:30 Dextrose (D50w Syringe) 25 ml Q15M PRN IV DECREASED GLUCOSE; Start 02/16/17 at 11:30 Dextrose (D50w Syringe) 50 ml Q15M PRN IV DECREASED GLUCOSE; Start 02/16/17 at 11:30 Glucagon (Glucagen) 1 mg Q15M PRN IM DECREASED GLUCOSE; Start 02/16/17 at 11:30 Glucose 15 gm 15 gm Q15M PRN BUCCAL DECREASED GLUCOSE; Start 02/16/17 at 11:30 Vasopressin/ Dextrose (Vasostrict/D5W) 60 ml @ 1.8 mls/hr Q12H IV ; Start at 13:00 Aspirin (Aspirin) 81 mg DAILY GTB Last administered on 02/26/17 08:52; Admin Dose 81 MG; Start 02/18/17 at 09:00 Atorvastatin Calcium (Lipitor) 20 mg HS NGT Last administered on 02/25/17 20: 46; Admin Dose 20 MG; Start 02/17/17 at 21:00 Insulin Aspart (Novolog Insulin Pen) NOVOLOG *MILD* ALGORI... Q6 SC Last administered on 02/20/17 17:54; Admin Dose 1 UNIT; Start 02/20/17 at 00:00 IV Flush (NS 10 ml) 10 ml PRN PRN IV IV PROTOCOL; Start 02/20/17 at 16:00 Lorazepam 1 mg 1 mg Q6H PRN IV AGITATION/ANXIETY Last administered on 21:11; Admin Dose 1 MG; Start 02/20/17 at 21:40 Vancomycin HCl/ Sodium Chloride (Vancocin/NS) 250 ml @ 83.333 mls/ hr Q36H IVPB Last administered on 03/01/17 02:07; Admin Dose 83.333 MLS/HR; Start at 14:00 Morphine Sulfate 4 mg 4 mg Q2 PRN IV Severe Pain Last administered on 20:44; Admin Dose 4 MG; Start 02/26/17 at 21:30 Potassium Chloride/Dextrose (D5W + KCl 20 Meq) 1,000 ml @ 50 mls/hr Q20H IV Last administered on 03/01/17 06:49; Admin Dose 50 MLS/HR; Start 02/28/17 at 08 :00 GUILHERME YATES Mar 01, 2017 12:35
[2017-03-01] MEDS: LORAZEPAM 2 MG INJ IV PRN (16:54)
--- NOTE | 2017-03-01 17:25 | RADRPT ---
PROCEDURE: XR Chest. CLINICAL INDICATION: Shortness of breath. TECHNIQUE: Single frontal view. COMPARISON: 02/28/2017. FINDINGS: The left chest tube and left arm PICC line remain in satisfactory position. There is a small left a pical pneumothorax, unchanged. Severe bilateral pulmonary air space disease is worse than seen prev iously. The heart size is normal. There are small bilateral pleural effusions. There is no pneumothorax. IMPRESSION: 1. Worse appearance of the lungs. 2. Small left apical pneumothorax, unchanged. RPTAT: QQ .Guillermo Palafox MD, MD Date Time Electronically viewed and signed by .Guillermo Palafox MD, MD on 03/01/2017 17:25 .R/
--- NOTE | 2017-03-01 17:27 | RADRPT ---
PROCEDURE: XR Chest. CLINICAL INDICATION: Shortness of breath. TECHNIQUE: Single frontal view. COMPARISON: Prior study done earlier the same day. FINDINGS: The left chest tube and left arm PICC line remain in satisfactory position. Severe bilateral pulmon ilia air space disease is once again noted. The heart size is normal. There are small bilateral pleural effusions. There is no right pneumothorax. There is a small left apical pneumothorax. IMPRESSION: 1. No change from the prior study done earlier the same day. RPTAT: QQ .Guillermo Palafox MD, MD Date Time Electronically viewed and signed by .Guillermo Palafox MD, MD on 03/01/2017 17:26 .R/
[2017-03-01] MEDS: ATORVASTATIN 20 MG TAB NGT SCH (21:00)
[2017-03-02] VITALS (71 sets, daily range): BP systolic 69–150; BP diastolic 55–102; PULSE 61–110; RESP 0–33
[2017-03-02] MEDS: ARTIFICIAL TEARS 15 ML OPH BOTH EYES SCH ×4 (00:01→18:11)
[2017-03-02] MEDS: OCULAR LUBRICANT 3.5 GM OPH OINT BOTH EYES SCH ×4 (00:02→18:00)
[2017-03-02] MEDS: VASOPRESSIN 60 UNIT in DEXTROSE 5% 57 ML IV SCH ×2 (01:00→12:05)
[2017-03-02] MEDS: D5W + KCL 20 MEQ 1,000 ML IV SCH (01:55)
[2017-03-02 05:39] LABS: BASOPHILS % 0.1 % (0.0-2.0); HEMATOCRIT 30.1 % (42.0-52.0); HEMOGLOBIN 9.7 g/dl (14.0-18.0); LYMPHOCYTES # 0.6 10^3/ul (0.8-2.9); LYMPHOCYTES % 6.3 % (15.0-51.0); MEAN CORPUSCULAR HEMOGLOBIN 31.9 pg (29.0-33.0); MEAN CORPUSCULAR HGB CONC 32.2 g/dl (32.0-37.0); MEAN PLATELET VOLUME 10.5 fl (7.4-10.4); MONOCYTE # 0.5 10^3/ul (0.3-0.9); MONOCYTES % 5.4 % (0.0-11.0); NEUTROPHIL # 8.5 10^3/ul (1.6-7.5); NEUTROPHILS % 87.5 % (39.0-77.0); PLATELET COUNT 276 10^3/UL (140-415); POSITIVE DIFF @See below; RED BLOOD COUNT 3.04 10^6/ul (4.70-6.10); RED CELL DISTRIBUTION WIDTH 16.4 % (11.5-14.5); WHITE BLOOD COUNT 9.7 10^3/ul (4.8-10.8)
[2017-03-02] MEDS: PANTOPRAZOLE 40 MG INJ IV SCH (05:46)
[2017-03-02] MEDS: INSULIN ASPART [NOVOLOG] 3 ML PEN SC SCH ×4 (05:48→18:00)
[2017-03-02 06:10] LABS: CALCIUM 8.5 mg/dl (8.4-10.2); CREATININE 1.76 mg/dl (0.61-1.24); PHOSPHORUS 2.3 mg/dl (2.5-4.9); POTASSIUM 3.1 mmol/L (3.5-5.1)
[2017-03-02] MEDS ORDERED: POTASSIUM CHLORIDE 50 ML IVPB ONE (07:30)
--- NOTE | 2017-03-02 07:47 | PN ---
Date/Time of Note Date/Time of Note DATE: 03/02/17 TIME: 07:46 Assessment/Plan VTE Prophylaxis VTE Prophylaxis Intervention: other Lines/Catheters IV Catheter Type (from Nrsg): PICC Line Central line still needed: Yes Urinary Cath still in place: Yes Reason Cath still needed: other (indicate) Assessment/Plan Chief Complaint/Hosp Course 1. Nonoliguric acute kidney injury with previous baseline creatinine 0.8 mg/dL. -Etiology of CROW secondary to ATN due to ischemic hypoperfusion shock. -Urinalysis was reviewed evidence of proteinuria no evidence of active sediment -Renal function has been fluctuating but overall stable, likely due to diuretic therapy -Continue Lasix at current dose, monitor closely -Continue supportive care, renally dose all meds, avoid nephrotoxic Anemia. -Monitor H&H levels Mineral bone disorder -Monitor calcium phosphorus levels Hypokalemia We will replete continue to monitor Hypernatremia, improving Patient with free water deficit of 2-3 L D5 water at 75 cc an hour Monitor serial sodium levels Volume overload -Improving -Continue lasix Cardiac arrest. Patient status post hypothermia protocol -Follow-up with cardiology Respiratory failure, status post extubation Continue high flow oxygen - ABGs reviewed -Follow-up with pulmonary Pneumothorax -Status post chest tube placement, continue to monitor Sepsis status post shock -Cultures positive for bacteremia -Continue antibiotic regimen, off pressors -Follow-up with ID -Monitor closely Problems: Subjective 24 Hr Interval Summary Free Text/Dictation Patient remains critically ill On BiPAP Urinary output has been adequate Exam/Review of Systems Vital Signs Vitals Vital Signs Date Time Temp Pulse Resp B/P Pulse Ox O2 Delivery O2 Flow Rate FiO2 03/02/17 06:21 96/70 BIPAP 03/02/17 06:00 92 21 100 03/02/17 05:04 60 03/02/17 04:00 98.5 02/27/17 05:00 15.0 Intake and Output 03/01/17 03/01/17 03/02/17 15:00 23:00 07:00 Intake Total 250 ml 300 ml Output Total 464 ml 216 ml 1279 ml Balance -464 ml 34 ml -979 ml Exam HEENT: Head is normocephalic, NECK: Supple. HEART: Irregular LUNGS: Show diminished breath sounds at base. ABDOMEN: Soft, nontender to palpation without rebound or guarding. EXTREMITIES: Negative for clubbing, cyanosis. DERMATOLOGIC: No rashes. MUSCULOSKELETAL: No joint effusions, NEUROLOGIC: No change in exam. Results Result Diagram: 03/02/17 0430 03/02/17 0430 Results 24 hrs Laboratory Tests Test 03/01/17 11:30 03/01/17 17:56 03/01/17 23:53 03/02/17 04:30 Bedside Glucose 139 119 110 White Blood Count 9.7 Red Blood Count 3.04 L Hemoglobin 9.7 L Hematocrit 30.1 L Mean Corpuscular Volume 99.0 Mean Corpuscular Hemoglobin 31.9 Mean Corpuscular Hemoglobin Concent 32.2 Red Cell Distribution Width 16.4 H Platelet Count 276 Mean Platelet Volume 10.5 H Neutrophils % 87.5 H Lymphocytes % 6.3 L Monocytes % 5.4 Eosinophils % 0.0 Basophils % 0.1 Nucleated Red Blood Cells % 0.0 Neutrophils # 8.5 H Lymphocytes # 0.6 L Monocytes # 0.5 Eosinophils # 0.0 Basophils # 0.0 Nucleated Red Blood Cells # 0.0 Sodium Level 149 H Potassium Level 3.1 L Chloride Level 103 Carbon Dioxide Level 35 H Anion Gap 14 Blood Urea Nitrogen 31 H Creatinine 1.76 H Glucose Level 125 Calcium Level 8.5 Phosphorus Level 2.3 L Magnesium Level 2.0 Test 03/02/17 05:45 Bedside Glucose 130 Medications Medications Current Medications Ondansetron HCl (Zofran Inj) 4 mg Q6H PRN IV NAUSEA AND/OR VOMITING; Start 02/14 at 16:00 Pantoprazole (Protonix Iv) 40 mg DAILY@06 IV Last administered on 03/02/17 05: 46; Admin Dose 40 MG; Start 02/15/17 at 06:00 Acetaminophen (Tylenol Supp) 650 mg Q4H PRN [place] TEMP > 37C; Start 02/14/17 at 18: 00 Acetaminophen (Tylenol Liquid) 650 mg Q4H PRN PO TEMP > 37C Last administered on 02/21/17 03:16; Admin Dose 650 MG; Start 02/14/17 at 18:00 Eye Lubricant (Akwa Oint) 1 applic Q6 BOTH EYES Last administered on 03/02/17 05:47; Admin Dose 1 APPLIC; Start 02/14/17 at 18:00 Eye Lubricant 2 drop 2 drop Q6 BOTH EYES Last administered on 03/02/17 05:47; Admin Dose 2 DROP; Start 02/14/17 at 18:00 Norepinephrine 16 mg/Dextrose 500 ml @ 0 mls/hr TITRATE IV Last administered on 02/20/17 19:05; Admin Dose 11.25 MLS/HR; Start 02/14/17 at 22:00 Azithromycin 500 mg/Sodium Chloride 250 ml @ 250 mls/hr DAILY IVPB Last administered on 03/01/17 09:12; Admin Dose 250 MLS/HR; Start 02/15/17 at 10:00 Phenylephrine HCl/ Dextrose (Fritz-Syneph/D5W) 500 ml @ 75 mls/hr TITRATE IV ; Start 02/16/17 at 03:30 Miscellaneous Information 1 ea NOTE XX ; Start 02/16/17 at 11:30 Glucose (Glutose) 15 gm Q15M PRN PO DECREASED GLUCOSE; Start 02/16/17 at 11:30 Glucose (Glutose) 22.5 gm Q15M PRN PO DECREASED GLUCOSE; Start 02/16/17 at 11:30 Dextrose (D50w Syringe) 25 ml Q15M PRN IV DECREASED GLUCOSE; Start 02/16/17 at 11:30 Dextrose (D50w Syringe) 50 ml Q15M PRN IV DECREASED GLUCOSE; Start 02/16/17 at 11:30 Glucagon (Glucagen) 1 mg Q15M PRN IM DECREASED GLUCOSE; Start 02/16/17 at 11:30 Glucose 15 gm 15 gm Q15M PRN BUCCAL DECREASED GLUCOSE; Start 02/16/17 at 11:30 Vasopressin/ Dextrose (Vasostrict/D5W) 60 ml @ 1.8 mls/hr Q12H IV ; Start at 13:00 Aspirin (Aspirin) 81 mg DAILY GTB Last administered on 02/26/17 08:52; Admin Dose 81 MG; Start 02/18/17 at 09:00 Atorvastatin Calcium (Lipitor) 20 mg HS NGT Last administered on 02/25/17 20: 46; Admin Dose 20 MG; Start 02/17/17 at 21:00 Insulin Aspart (Novolog Insulin Pen) NOVOLOG *MILD* ALGORI... Q6 SC Last administered on 02/20/17 17:54; Admin Dose 1 UNIT; Start 02/20/17 at 00:00 IV Flush (NS 10 ml) 10 ml PRN PRN IV IV PROTOCOL; Start 02/20/17 at 16:00 Lorazepam 1 mg 1 mg Q6H PRN IV AGITATION/ANXIETY Last administered on 16:54; Admin Dose 1 MG; Start 02/20/17 at 21:40 Vancomycin HCl/ Sodium Chloride (Vancocin/NS) 250 ml @ 83.333 mls/ hr Q36H IVPB Last administered on 03/01/17 02:07; Admin Dose 83.333 MLS/HR; Start at 14:00 Morphine Sulfate 4 mg 4 mg Q2 PRN IV Severe Pain Last administered on 20:44; Admin Dose 4 MG; Start 02/26/17 at 21:30 Potassium Chloride/Dextrose 1,000 ml @ 50 mls/hr Q20H IV Last administered on 03/02/17 01:55; Admin Dose 50 MLS/HR; Start 02/28/17 at 08:00 Potassium Chloride 250 ml @ 62.5 mls/hr ONCE ONCE IVPB ; Start 03/02/17 at 09: 00; Stop 03/02/17 at 12:59 Potassium Chloride (KCl 20 MEQ/50 ML SW) 50 ml @ 25 mls/hr ONCE ONCE IVPB ; Start 03/02/17 at 07:30; Stop 03/02/17 at 09:29 JENSEN OLIVIER DO Mar 02, 2017 07:47
[2017-03-02] MEDS: ASPIRIN 81 MG TAB GTB SCH ×2 (08:00→16:03)
[2017-03-02] MEDS: FUROSEMIDE 40 MG INJ IV SCH ×2 (08:00→18:00)
[2017-03-02] MEDS: AZITHROMYCIN 500 MG in SOD CHLORIDE 0.9% 250 ML IVPB SCH (08:11)
[2017-03-02] MEDS ORDERED: POTASSIUM CHLORIDE 250 ML IVPB ONE (09:00)
[2017-03-02] MEDS: POTASSIUM CHLORIDE 40 MEQ in DEXTROSE 5% 1,000 ML IV SCH ×2 (09:45→20:14)
[2017-03-02] MEDS: LORAZEPAM 2 MG INJ IV PRN (10:12)
--- NOTE | 2017-03-02 10:53 | CONS ---
Date/Time of Note Date/Time of Note DATE: 03/02/17 TIME: 10:51 Assessment/Plan Assessment/Plan Additional Assessment/Plan Chest x-ray was reviewed from late yesterday evening which is showing extensive bilateral pneumonia with significant interval worsening. Next Patient currently on BiPAP 20/ on 50% FiO2. Assessment recommendations; 1. Patient admitted with cardiac arrest status post CPR and status post extubation however there has been significant clinical and radiological decline with increasing bilateral pneumonia patient requiring continuous BiPAP at fairly high FiO2. 2. Some element of dementia. 3. Improving renal function. Discontinue Zithromax. Add cefepime 1 g IV every 12 hours. Patient will need to be intubated. 35 minutes of critical care time was spent evaluating the patient. Consultation Date/Type/Reason Admit Date/Time Feb 14, 2017 at 16:02 Type of Consultation: Pulmonary/critical care 24 HR Interval Summary Free Text/Dictation Patient condition remains tenuous at best. Requiring continuous BiPAP. Patient however is awake and alert. And does complain of shortness of breath. General exam; elderly male, on BiPAP. Awake. Currently in very mild respiratory distress. Exam/Review of Systems Vital Signs Vitals Vital Signs Date Time Temp Pulse Resp B/P Pulse Ox O2 Delivery O2 Flow Rate FiO2 03/02/17 10:00 92 22 91/68 100 High Flow 03/02/17 08:00 101.1 03/02/17 05:04 60 02/27/17 05:00 15.0 Intake and Output 03/01/17 03/01/17 03/02/17 15:00 23:00 07:00 Intake Total 250 ml 300 ml Output Total 464 ml 216 ml 1365 ml Balance -464 ml 34 ml -1065 ml Exam HEENT exam; supple neck, no JVD. No lymphadenopathy. Midline trachea. No thyromegaly. Patient currently on full face BiPAP mask. Chest exam; diminished but clear vessel. S1-S2 audible, no murmurs. Regular rhythm. Abdomen exam; soft, nondistended. No organomegaly. Bowel sounds audible. Extremity exam; no peripheral edema. 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 Results Result Diagram: 03/02/17 0430 03/02/17 0430 Results 24 hrs Laboratory Tests Test 03/01/17 11:30 03/01/17 17:56 03/01/17 23:53 03/02/17 04:30 Bedside Glucose 139 119 110 White Blood Count 9.7 Red Blood Count 3.04 L Hemoglobin 9.7 L Hematocrit 30.1 L Mean Corpuscular Volume 99.0 Mean Corpuscular Hemoglobin 31.9 Mean Corpuscular Hemoglobin Concent 32.2 Red Cell Distribution Width 16.4 H Platelet Count 276 Mean Platelet Volume 10.5 H Neutrophils % 87.5 H Lymphocytes % 6.3 L Monocytes % 5.4 Eosinophils % 0.0 Basophils % 0.1 Nucleated Red Blood Cells % 0.0 Neutrophils # 8.5 H Lymphocytes # 0.6 L Monocytes # 0.5 Eosinophils # 0.0 Basophils # 0.0 Nucleated Red Blood Cells # 0.0 Sodium Level 149 H Potassium Level 3.1 L Chloride Level 103 Carbon Dioxide Level 35 H Anion Gap 14 Blood Urea Nitrogen 31 H Creatinine 1.76 H Glucose Level 125 Calcium Level 8.5 Phosphorus Level 2.3 L Magnesium Level 2.0 Test 03/02/17 05:45 Bedside Glucose 130 Medications Medications Current Medications Ondansetron HCl (Zofran Inj) 4 mg Q6H PRN IV NAUSEA AND/OR VOMITING; Start 02/14 at 16:00 Pantoprazole (Protonix Iv) 40 mg DAILY@06 IV Last administered on 03/02/17 05: 46; Admin Dose 40 MG; Start 02/15/17 at 06:00 Acetaminophen (Tylenol Supp) 650 mg Q4H PRN [place] TEMP > 37C; Start 02/14/17 at 18: 00 Acetaminophen (Tylenol Liquid) 650 mg Q4H PRN PO TEMP > 37C Last administered on 02/21/17 03:16; Admin Dose 650 MG; Start 02/14/17 at 18:00 Eye Lubricant (Akwa Oint) 1 applic Q6 BOTH EYES Last administered on 03/02/17 05:47; Admin Dose 1 APPLIC; Start 02/14/17 at 18:00 Eye Lubricant 2 drop 2 drop Q6 BOTH EYES Last administered on 03/02/17 05:47; Admin Dose 2 DROP; Start 02/14/17 at 18:00 Norepinephrine 16 mg/Dextrose 500 ml @ 0 mls/hr TITRATE IV Last administered on 02/20/17 19:05; Admin Dose 11.25 MLS/HR; Start 02/14/17 at 22:00 Azithromycin 500 mg/Sodium Chloride 250 ml @ 250 mls/hr DAILY IVPB Last administered on 03/02/17 08:11; Admin Dose 250 MLS/HR; Start 02/15/17 at 10:00 Phenylephrine HCl/ Dextrose (Fritz-Syneph/D5W) 500 ml @ 75 mls/hr TITRATE IV ; Start 02/16/17 at 03:30 Miscellaneous Information 1 ea NOTE XX ; Start 02/16/17 at 11:30 Glucose (Glutose) 15 gm Q15M PRN PO DECREASED GLUCOSE; Start 02/16/17 at 11:30 Glucose (Glutose) 22.5 gm Q15M PRN PO DECREASED GLUCOSE; Start 02/16/17 at 11:30 Dextrose (D50w Syringe) 25 ml Q15M PRN IV DECREASED GLUCOSE; Start 02/16/17 at 11:30 Dextrose (D50w Syringe) 50 ml Q15M PRN IV DECREASED GLUCOSE; Start 02/16/17 at 11:30 Glucagon (Glucagen) 1 mg Q15M PRN IM DECREASED GLUCOSE; Start 02/16/17 at 11:30 Glucose 15 gm 15 gm Q15M PRN BUCCAL DECREASED GLUCOSE; Start 02/16/17 at 11:30 Vasopressin/ Dextrose (Vasostrict/D5W) 60 ml @ 1.8 mls/hr Q12H IV ; Start at 13:00 Aspirin (Aspirin) 81 mg DAILY GTB Last administered on 02/26/17 08:52; Admin Dose 81 MG; Start 02/18/17 at 09:00 Atorvastatin Calcium (Lipitor) 20 mg HS NGT Last administered on 02/25/17 20: 46; Admin Dose 20 MG; Start 02/17/17 at 21:00 Insulin Aspart (Novolog Insulin Pen) NOVOLOG *MILD* ALGORI... Q6 SC Last administered on 02/20/17 17:54; Admin Dose 1 UNIT; Start 02/20/17 at 00:00 IV Flush (NS 10 ml) 10 ml PRN PRN IV IV PROTOCOL; Start 02/20/17 at 16:00 Lorazepam 1 mg 1 mg Q6H PRN IV AGITATION/ANXIETY Last administered on 10:12; Admin Dose 1 MG; Start 02/20/17 at 21:40 Vancomycin HCl/ Sodium Chloride (Vancocin/NS) 250 ml @ 83.333 mls/ hr Q36H IVPB Last administered on 03/01/17 02:07; Admin Dose 83.333 MLS/HR; Start at 14:00 Morphine Sulfate 4 mg 4 mg Q2 PRN IV Severe Pain Last administered on 20:44; Admin Dose 4 MG; Start 02/26/17 at 21:30 Potassium Chloride 250 ml @ 62.5 mls/hr ONCE ONCE IVPB Last administered on 09:47; Admin Dose 62.5 MLS/HR; Start 03/02/17 at 09:00; Stop 03/02/17 at 12:59 Potassium Chloride/Dextrose (KCl/D5W) 1,020 ml @ 75 mls/hr [id number] IV Last administered on 03/02/17 09:45; Admin Dose 75 MLS/HR; Start 03/02/17 at 08:00 MARCELINO POZO Mar 02, 2017 10:53
[2017-03-02] MEDS: CEFEPIME 1GM/50 ML (PMX) 50 ML IVPB SCH ×2 (11:23→23:36)
[2017-03-02] MEDS: PROPOFOL 100 ML IV SCH (12:05)
--- NOTE | 2017-03-02 12:07 | EN ---
Date/Time of Note Date/Time of Note DATE: 03/02/17 TIME: 12:06 Event Note Medicine Medicine Event Note Patient intubated for impending respiratory failure without difficulty with 7.5 endotracheal tube. No sedation was required. Vocal cords were directly visualized and endotracheal tube traversed through without difficulty. Chest x- ray is pending. MARCELINO POZO Mar 02, 2017 12:07
--- NOTE | 2017-03-02 12:58 | RADRPT ---
PROCEDURE: XR Chest. CLINICAL INDICATION: Status post intubation. TECHNIQUE: AP Portable chest. COMPARISON: Chest x-ray 03/01/2017. FINDINGS: There has been interval placement of an endotracheal tube approximately 2.6 cm above the agustín. Th e left PICC line is grossly stable in position with its distal tip in the proximal right atrium. Th e left thoracostomy tube has been minimally retracted. There may be a trace left apical pneumothorax , not significantly changed. The heart size is upper limits of normal. Patchy areas of consolidati on are seen in the upper lobes bilaterally, not significantly changed. Patchy infiltrates in the mi d and lower lung zones are slightly more pronounced in the right and improved on the left. There is a small left and possible trace right pleural effusion. Multiple acute left-sided rib fractures ar e again identified. IMPRESSION: 1. Interval intubation with endotracheal tube situated approximately 2.6 cm above the agustín. The remaining tubes and lines remain in good position. 2. Patchy consolidation is again seen in the lungs bilaterally, most pronounced in the upper lobes where is not significantly changed. There has been some improvement in patchy infiltration in the l eft mid and lower lung zone with slight worsening on the right. 3. Left thoracostomy tube with trace apical pneumothorax. Multiple left-sided rib fractures are ag ain seen. RPTAT: HJAH .Mila Jain MD, MD Date Time Electronically viewed and signed by .Mila Jain MD, on 03/02/2017 12:58 .H/
[2017-03-02 13:20] LABS: AADO2 Arterial 246.9 mmHg (7.0-24.0); Allen Test ACCEPTAB; Arterial Base Excess 5.1 mmol/L (-3.0-3); Arterial COHb 0.3 % (0.0-3.0); Arterial Fraction of Oxyhgb 98.4 % (93.0-99.0); Arterial HCO3 27.7 mmol/L (22.0-26.0); Arterial MetHb 0.4 % (0.0-1.5); Arterial Total Hemglobin 9.3 g/dl (12.0-18.0); MODE VENT - AC
[2017-03-02] MEDS: VANCOMYCIN 1.25 GM in SOD CHLORIDE 0.9% 250 ML IVPB SCH (13:37)
[2017-03-02] MEDS: morphine 4 MG/ML VIAL IV PRN (16:03)
--- NOTE | 2017-03-02 16:04 | PN ---
Date/Time of Note Date/Time of Note DATE: 03/02/17 TIME: 16:00 Assessment/Plan VTE Prophylaxis VTE Prophylaxis Intervention: other Lines/Catheters IV Catheter Type (from Nrs): PICC Line Central line still needed: Yes Urinary Cath still in place: Yes Reason Cath still needed: other (indicate) Assessment/Plan Chief Complaint/Hosp Course Cardiopulmonary arrest Septic shock Vent dependent respiratory failure Cardiomyopathy with ejection fraction 20% Non-ST elevation MO Acute kidney injury Acute blood loss anemia Paroxysmal atrial fibrillation cont supportive care ASA levophed as needed cont vent support cont ICU care abx as per IM/ pulm rec. Problems: Subjective 24 Hr Interval Summary Free Text/Dictation D/ WSTAFF AND RHYTHM WAS Reviewed. pt with increasing resp failure and had to be reintubated today. currently on vent and nonverbal pt has converted back to NSR and has been hypotensive and is on levophed drip. OBJECTIVE: General: S/P Intubation on vent. HEENT: NC/AT. pupils are equal. round. s.p OG tube. NECK: . no stridor. CV: RRR. systolic murmur; no gallop or rubs. PULM: no wheezing. + diffuse rhonchi. GI: SOFT, NT, ND, no rebound or guarding Extremity: + B/L LE edema. no clubbing. neuro: opens his eyes. Psych: calm and pleasant rectal: deferred : normal male Exam/Review of Systems Vital Signs Vitals Vital Signs Date Time Temp Pulse Resp B/P Pulse Ox O2 Delivery O2 Flow Rate FiO2 03/02/17 15:30 69 25 105/69 100 Mechanical Ventilator 03/02/17 12:35 100 03/02/17 11:27 99.3 02/27/17 05:00 15.0 Intake and Output 03/01/17 03/01/17 03/02/17 15:00 23:00 07:00 Intake Total 250 ml 300 ml Output Total 464 ml 216 ml 1365 ml Balance -464 ml 34 ml -1065 ml Results Result Diagram: 03/02/17 0430 03/02/17 1440 Results 24 hrs Laboratory Tests Test 03/01/17 17:56 03/01/17 23:53 03/02/17 04:30 03/02/17 05:45 Bedside Glucose 119 110 130 White Blood Count 9.7 Red Blood Count 3.04 L Hemoglobin 9.7 L Hematocrit 30.1 L Mean Corpuscular Volume 99.0 Mean Corpuscular Hemoglobin 31.9 Mean Corpuscular Hemoglobin Concent 32.2 Red Cell Distribution Width 16.4 H Platelet Count 276 Mean Platelet Volume 10.5 H Neutrophils % 87.5 H Lymphocytes % 6.3 L Monocytes % 5.4 Eosinophils % 0.0 Basophils % 0.1 Nucleated Red Blood Cells % 0.0 Neutrophils # 8.5 H Lymphocytes # 0.6 L Monocytes # 0.5 Eosinophils # 0.0 Basophils # 0.0 Nucleated Red Blood Cells # 0.0 Sodium Level 149 H Potassium Level 3.1 L Chloride Level 103 Carbon Dioxide Level 35 H Anion Gap 14 Blood Urea Nitrogen 31 H Creatinine 1.76 H Glucose Level 125 Calcium Level 8.5 Phosphorus Level 2.3 L Magnesium Level 2.0 Test 03/02/17 11:26 03/02/17 13:00 03/02/17 14:40 Bedside Glucose 119 Blood Gas Specimen Source Blood arterial Arterial Blood Date Drawn 03/02/2017 1:08:57 PM Arterial Blood pH (Temp corrected) 7.542 H Arterial Blood pCO2 (Temp correct) 33.0 L Arterial Blood pO2 (Temp corrected) 433.1 H Arterial Blood HCO3 27.7 H Arterial Blood Base Excess 5.1 H Arterial Blood Oxygen Saturation 99.1 Chris Test ACCEPTAB Arterial Blood Gas Puncture Site Right Radial Arterial Blood Carboxyhemoglobin 0.3 Arterial Blood Methemoglobin 0.4 Blood Gas A-a O2 Differential 246.9 H Oxyhemoglobin Percent 98.4 Total Hemoglobin 9.3 L Blood Gas Temperature 37.0 Blood Gas Respiration Rate 26.0 Blood Gas Actual Respiration Rate 26 Blood Gas Modality VENT - AC FiO2 100.0 Blood Gas Tidal Volume 500.0 Blood Gas Low PEEP Setting 5.0 Blood Gas Notified Whom KRISHAN DANIELLE Blood Gas Notified Time 03/02/2017 1:20:00 PM Potassium Level 4.0 Medications Medications Current Medications Ondansetron HCl (Zofran Inj) 4 mg Q6H PRN IV NAUSEA AND/OR VOMITING; Start 02/14 at 16:00 Pantoprazole (Protonix Iv) 40 mg DAILY@06 IV Last administered on 03/02/17t 05: 46; Admin Dose 40 MG; Start 02/15/17 at 06:00 Acetaminophen (Tylenol Supp) 650 mg Q4H PRN [place] TEMP > 37C; Start 02/14/17 at 18: 00 Acetaminophen (Tylenol Liquid) 650 mg Q4H PRN [place] TEMP > 37C Last administered on 02/21/17 03:16; Admin Dose 650 MG; Start 02/14/17 at 18:00 Eye Lubricant (Akwa Oint) 1 applic Q6 BOTH EYES Last administered on 03/02/17 05:47; Admin Dose 1 APPLIC; Start 02/14/17 at 18:00 Eye Lubricant 2 drop 2 drop Q6 BOTH EYES Last administered on 03/02/17 05:47; Admin Dose 2 DROP; Start 02/14/17 at 18:00 Norepinephrine 16 mg/Dextrose 500 ml @ 0 mls/hr TITRATE IV Last administered on 03/02/17 12:31; Admin Dose 3.75 MLS/HR; Start 02/14/17 at 22:00 Phenylephrine HCl/ Dextrose (Fritz-Syneph/D5W) 500 ml @ 75 mls/hr TITRATE IV ; Start 02/16/17 at 03:30 Miscellaneous Information 1 ea NOTE XX ; Start 02/16/17 at 11:30 Glucose (Glutose) 15 gm Q15M PRN PO DECREASED GLUCOSE; Start 02/16/17 at 11:30 Glucose (Glutose) 22.5 gm Q15M PRN PO DECREASED GLUCOSE; Start 02/16/17 at 11:30 Dextrose (D50w Syringe) 25 ml Q15M PRN IV DECREASED GLUCOSE; Start 02/16/17 at 11:30 Dextrose (D50w Syringe) 50 ml Q15M PRN IV DECREASED GLUCOSE; Start 02/16/17 at 11:30 Glucagon (Glucagen) 1 mg Q15M PRN IM DECREASED GLUCOSE; Start 02/16/17 at 11:30 Glucose 15 gm 15 gm Q15M PRN BUCCAL DECREASED GLUCOSE; Start 02/16/17 at 11:30 Vasopressin/ Dextrose (Vasostrict/D5W) 60 ml @ 1.8 mls/hr Q12H IV ; Start at 13:00 Aspirin (Aspirin) 81 mg DAILY GTB Last administered on 02/26/17 08:52; Admin Dose 81 MG; Start 02/18/17 at 09:00 Atorvastatin Calcium (Lipitor) 20 mg HS NGT Last administered on 02/25/17 20: 46; Admin Dose 20 MG; Start 02/17/17 at 21:00 Insulin Aspart (Novolog Insulin Pen) NOVOLOG *MILD* ALGORI... Q6 SC Last administered on 02/20/17 17:54; Admin Dose 1 UNIT; Start 02/20/17 at 00:00 IV Flush (NS 10 ml) 10 ml PRN PRN IV IV PROTOCOL; Start 02/20/17 at 16:00 Lorazepam 1 mg 1 mg Q6H PRN IV AGITATION/ANXIETY Last administered on 10:12; Admin Dose 1 MG; Start 02/20/17 at 21:40 Vancomycin HCl/ Sodium Chloride (Vancocin/NS) 250 ml @ 83.333 mls/ hr Q36H IVPB Last administered on 03/02/17 13:37; Admin Dose 83.333 MLS/HR; Start at 14:00 Morphine Sulfate 4 mg 4 mg Q2 PRN IV Severe Pain Last administered on 20:44; Admin Dose 4 MG; Start 02/26/17 at 21:30 Potassium Chloride 40 meq/ Dextrose 1,020 ml @ 75 mls/hr [id number] IV Last administered on 03/02/17 09:45; Admin Dose 75 MLS/HR; Start 03/02/17 at 08:00 Cefepime HCl 50 ml @ 100 mls/hr Q12 IVPB Last administered on 03/02/17 11:23 ; Admin Dose 100 MLS/HR; Start 03/02/17 at 11:00 Propofol (Diprivan) 100 ml @ 2.46 mls/hr Q12H IV Last administered on 12:05; Admin Dose 2.46 MLS/HR; Start 03/02/17 at 12:00 JACQUELINE ROYAL MD Mar 02, 2017 16:04
--- NOTE | 2017-03-02 17:24 | PN ---
Date/Time of Note Date/Time of Note DATE: 03/02/17 TIME: 17:23 Assessment/Plan VTE Prophylaxis VTE Prophylaxis Intervention: SCD's Assessment/Plan Chief Complaint/Hosp Course 1. S/p Cardiac arrest secondary to V-fib status post ACLS with defibrillation and return of circulation -Status post hypothermia protocol / Cardiology following / patient did not meet criteria for emergent cardiac catheterization per black belt on-call on arrival 2. Vent dependent resp failure secondary to cardiac arrest-patient now reintubated -Continue vent support -Continue Lasix -Pulmonology consultation appreciated 3. L sided Rib fractures and Pneumothorax secondary to repeated chest compressions - status post chest tube placement / Pulm managing 4. Sepsis with bilateral Pneumonia likely with a component of aspiration / Coagulase neg bacteremia -Continue vancomycin but DC Zosyn 5. Acute on Chronic Normocytic anemia with thrombocytopenia likely 2/2 Iron deficiency 6. Acute kidney disease on CKD secondary to cardiac arrest -Monitor, nephrology following 7. Reactive Hyperglycemia -Normal BG levels on regular tube feeds / d/c SSI 8. 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 Right hip pain X-ray right hip Prophylaxis: SCD's Discharge planning: Patient will likely need rehab placement upon discharge Problems: Subjective 24 Hr Interval Summary Subjective hx not possible: pt non-verbal Exam/Review of Systems Vital Signs Vitals Vital Signs Date Time Temp Pulse Resp B/P Pulse Ox O2 Delivery O2 Flow Rate FiO2 03/02/17 16:00 98.6 78 26 130/83 100 Mechanical Ventilator 03/02/17 16:00 50 02/27/17 05:00 15.0 Intake and Output 03/01/17 03/01/17 03/02/17 15:00 23:00 07:00 Intake Total 250 ml 300 ml Output Total 464 ml 216 ml 1365 ml Balance -464 ml 34 ml -1065 ml Exam ENMT: intubated Respiratory: clear to auscultation Cardiovascular: regular rate and rhythm Gastrointestinal: soft, No distended Musculoskeletal: nl extremities to inspection Results Result Diagram: 03/02/17 0430 03/02/17 1440 Results 24 hrs Laboratory Tests Test 03/01/17 17:56 03/01/17 23:53 03/02/17 04:30 03/02/17 05:45 Bedside Glucose 119 110 130 White Blood Count 9.7 Red Blood Count 3.04 L Hemoglobin 9.7 L Hematocrit 30.1 L Mean Corpuscular Volume 99.0 Mean Corpuscular Hemoglobin 31.9 Mean Corpuscular Hemoglobin Concent 32.2 Red Cell Distribution Width 16.4 H Platelet Count 276 Mean Platelet Volume 10.5 H Neutrophils % 87.5 H Lymphocytes % 6.3 L Monocytes % 5.4 Eosinophils % 0.0 Basophils % 0.1 Nucleated Red Blood Cells % 0.0 Neutrophils # 8.5 H Lymphocytes # 0.6 L Monocytes # 0.5 Eosinophils # 0.0 Basophils # 0.0 Nucleated Red Blood Cells # 0.0 Sodium Level 149 H Potassium Level 3.1 L Chloride Level 103 Carbon Dioxide Level 35 H Anion Gap 14 Blood Urea Nitrogen 31 H Creatinine 1.76 H Glucose Level 125 Calcium Level 8.5 Phosphorus Level 2.3 L Magnesium Level 2.0 Test 03/02/17 11:26 03/02/17 13:00 03/02/17 14:40 Bedside Glucose 119 Blood Gas Specimen Source Blood arterial Arterial Blood Date Drawn 03/02/2017 1:08:57 PM Arterial Blood pH (Temp corrected) 7.542 H Arterial Blood pCO2 (Temp correct) 33.0 L Arterial Blood pO2 (Temp corrected) 433.1 H Arterial Blood HCO3 27.7 H Arterial Blood Base Excess 5.1 H Arterial Blood Oxygen Saturation 99.1 Chris Test ACCEPTAB Arterial Blood Gas Puncture Site Right Radial Arterial Blood Carboxyhemoglobin 0.3 Arterial Blood Methemoglobin 0.4 Blood Gas A-a O2 Differential 246.9 H Oxyhemoglobin Percent 98.4 Total Hemoglobin 9.3 L Blood Gas Temperature 37.0 Blood Gas Respiration Rate 26.0 Blood Gas Actual Respiration Rate 26 Blood Gas Modality VENT - AC FiO2 100.0 Blood Gas Tidal Volume 500.0 Blood Gas Low PEEP Setting 5.0 Blood Gas Notified Whom KRISHAN DANIELLE Blood Gas Notified Time 03/02/2017 1:20:00 PM Potassium Level 4.0 Medications Medications Current Medications Ondansetron HCl (Zofran Inj) 4 mg Q6H PRN IV NAUSEA AND/OR VOMITING; Start 02/14 at 16:00 Pantoprazole (Protonix Iv) 40 mg DAILY@06 IV Last administered on 03/02/17t 05: 46; Admin Dose 40 MG; Start 02/15/17 at 06:00 Acetaminophen (Tylenol Supp) 650 mg Q4H PRN [place] TEMP > 37C; Start 02/14/17 at 18: 00 Acetaminophen (Tylenol Liquid) 650 mg Q4H PRN PO TEMP > 37C Last administered on 02/21/17 03:16; Admin Dose 650 MG; Start 02/14/17 at 18:00 Eye Lubricant (Akwa Oint) 1 applic Q6 BOTH EYES Last administered on 03/02/17 05:47; Admin Dose 1 APPLIC; Start 02/14/17 at 18:00 Eye Lubricant 2 drop 2 drop Q6 BOTH EYES Last administered on 03/02/17 05:47; Admin Dose 2 DROP; Start 02/14/17 at 18:00 Norepinephrine 16 mg/Dextrose 500 ml @ 0 mls/hr TITRATE IV Last administered on 03/02/17 12:31; Admin Dose 3.75 MLS/HR; Start 02/14/17 at 22:00 Phenylephrine HCl/ Dextrose (Fritz-Syneph/D5W) 500 ml @ 75 mls/hr TITRATE IV ; Start 02/16/17 at 03:30 Miscellaneous Information 1 ea NOTE XX ; Start 02/16/17 at 11:30 Glucose (Glutose) 15 gm Q15M PRN PO DECREASED GLUCOSE; Start 02/16/17 at 11:30 Glucose (Glutose) 22.5 gm Q15M PRN PO DECREASED GLUCOSE; Start 02/16/17 at 11:30 Dextrose (D50w Syringe) 25 ml Q15M PRN IV DECREASED GLUCOSE; Start 02/16/17 at 11:30 Dextrose (D50w Syringe) 50 ml Q15M PRN IV DECREASED GLUCOSE; Start 02/16/17 at 11:30 Glucagon (Glucagen) 1 mg Q15M PRN IM DECREASED GLUCOSE; Start 02/16/17 at 11:30 Glucose 15 gm 15 gm Q15M PRN BUCCAL DECREASED GLUCOSE; Start 02/16/17 at 11:30 Vasopressin/ Dextrose (Vasostrict/D5W) 60 ml @ 1.8 mls/hr Q12H IV ; Start at 13:00 Aspirin (Aspirin) 81 mg DAILY GTB Last administered on 03/02/17 16:03; Admin Dose 81 MG; Start 02/18/17 at 09:00 Atorvastatin Calcium (Lipitor) 20 mg HS NGT Last administered on 02/25/17 20: 46; Admin Dose 20 MG; Start 02/17/17 at 21:00 Insulin Aspart (Novolog Insulin Pen) NOVOLOG *MILD* ALGORI... Q6 SC Last administered on 02/20/17 17:54; Admin Dose 1 UNIT; Start 02/20/17 at 00:00 IV Flush (NS 10 ml) 10 ml PRN PRN IV IV PROTOCOL; Start 02/20/17 at 16:00 Lorazepam 1 mg 1 mg Q6H PRN IV AGITATION/ANXIETY Last administered on 10:12; Admin Dose 1 MG; Start 02/20/17 at 21:40 Vancomycin HCl/ Sodium Chloride (Vancocin/NS) 250 ml @ 83.333 mls/ hr Q36H IVPB Last administered on 03/02/17 13:37; Admin Dose 83.333 MLS/HR; Start at 14:00 Morphine Sulfate 4 mg 4 mg Q2 PRN IV Severe Pain Last administered on 16:03; Admin Dose 4 MG; Start 02/26/17 at 21:30 Potassium Chloride 40 meq/ Dextrose 1,020 ml @ 75 mls/hr [id number] IV Last administered on 03/02/17 09:45; Admin Dose 75 MLS/HR; Start 03/02/17 at 08:00 Cefepime HCl 50 ml @ 100 mls/hr Q12 IVPB Last administered on 03/02/17 11:23 ; Admin Dose 100 MLS/HR; Start 03/02/17 at 11:00 Propofol (Diprivan) 100 ml @ 2.46 mls/hr Q12H IV Last administered on 12:05; Admin Dose 2.46 MLS/HR; Start 03/02/17 at 12:00 GUILHERME YATES Mar 02, 2017 17:24
[2017-03-02] MEDS: ATORVASTATIN 20 MG TAB NGT SCH (20:13)
[2017-03-03] VITALS (97 sets, daily range): BP systolic 77–139; BP diastolic 52–125; PULSE 55–97; RESP 0–32
[2017-03-03] MEDS: OCULAR LUBRICANT 3.5 GM OPH OINT BOTH EYES SCH ×4 (00:23→18:25)
[2017-03-03] MEDS: ARTIFICIAL TEARS 15 ML OPH BOTH EYES SCH ×4 (00:23→18:25)
[2017-03-03] MEDS: PROPOFOL 100 ML IV SCH ×3 (00:25→19:36)
[2017-03-03] MEDS: VASOPRESSIN 60 UNIT in DEXTROSE 5% 57 ML IV SCH ×2 (01:00→13:00)
[2017-03-03] MEDS: INSULIN ASPART [NOVOLOG] 3 ML PEN SC SCH ×4 (06:00→18:00)
[2017-03-03] MEDS: FUROSEMIDE 40 MG INJ IV SCH ×2 (06:00→18:25)
[2017-03-03 06:14] LABS: CALCIUM 8.1 mg/dl (8.4-10.2); CREATININE 1.61 mg/dl (0.61-1.24); MAGNESIUM 1.9 mg/dl (1.7-2.5); PHOSPHORUS 1.5 mg/dl (2.5-4.9); POTASSIUM 3.8 mmol/L (3.5-5.1)
[2017-03-03] MEDS: PANTOPRAZOLE 40 MG INJ IV SCH (06:15)
--- NOTE | 2017-03-03 08:03 | PN ---
Date/Time of Note Date/Time of Note DATE: 03/03/17 TIME: 08:01 Assessment/Plan VTE Prophylaxis VTE Prophylaxis Intervention: other Lines/Catheters Urinary Cath still in place: Yes Reason Cath still needed: other (indicate) Assessment/Plan Chief Complaint/Hosp Course 1. Nonoliguric acute kidney injury with previous baseline creatinine 0.8 mg/dL. -Etiology of CROW secondary to ATN due to ischemic hypoperfusion shock. -Urinalysis was reviewed evidence of proteinuria no evidence of active sediment -Renal function has been fluctuating but overall stable, likely due to diuretic therapy -Continue Lasix at current dose, monitor closely -Continue supportive care, renally dose all meds, avoid nephrotoxic Anemia. -Monitor H&H levels Mineral bone disorder -Monitor calcium phosphorus levels Replete phosphorus as needed Hypokalemia We will replete continue to monitor Hypernatremia, improving Patient with free water deficit of 2-3 L D5 water at 75 cc an hour Monitor serial sodium levels Volume overload -Improving -Continue lasix Cardiac arrest. Patient status post hypothermia protocol -Follow-up with cardiology Respiratory failure, status post extubation Continue high flow oxygen - ABGs reviewed -Follow-up with pulmonary Pneumothorax -Status post chest tube placement, continue to monitor Sepsis status post shock -Cultures positive for bacteremia -Continue antibiotic regimen, off pressors -Follow-up with ID -Monitor closely Problems: Subjective 24 Hr Interval Summary Free Text/Dictation Patient seen and examined Was intubated overnight No other events noted Exam/Review of Systems Vital Signs Vitals Vital Signs Date Time Temp Pulse Resp B/P Pulse Ox O2 Delivery O2 Flow Rate FiO2 03/03/17 06:30 89 26 113/79 100 03/03/17 06:15 Mechanical Ventilator 03/03/17 04:56 40 03/03/17 04:00 99.7 Intake and Output 03/02/17 03/02/17 03/03/17 15:00 23:00 07:00 Intake Total 1146.75 ml 1137.62 ml 613.85 ml Output Total 400 ml 222 ml 451 ml Balance 746.75 ml 915.62 ml 162.85 ml Exam HEENT: Head is normocephalic, NECK: Supple. HEART: Irregular LUNGS: Show diminished breath sounds at base. ABDOMEN: Soft, nontender to palpation without rebound or guarding. EXTREMITIES: Negative for clubbing, cyanosis. DERMATOLOGIC: No rashes. MUSCULOSKELETAL: No joint effusions, NEUROLOGIC: No change in exam. Results Result Diagram: 03/02/17 0430 03/03/17 0445 Results 24 hrs Laboratory Tests Test 03/02/17 11:26 03/02/17 13:00 03/02/17 14:40 03/02/17 18:10 Bedside Glucose 119 136 Blood Gas Specimen Source Blood arterial Arterial Blood Date Drawn 03/02/2017 1:08:57 PM Arterial Blood pH (Temp corrected) 7.542 H Arterial Blood pCO2 (Temp correct) 33.0 L Arterial Blood pO2 (Temp corrected) 433.1 H Arterial Blood HCO3 27.7 H Arterial Blood Base Excess 5.1 H Arterial Blood Oxygen Saturation 99.1 Chris Test ACCEPTAB Arterial Blood Gas Puncture Site Right Radial Arterial Blood Carboxyhemoglobin 0.3 Arterial Blood Methemoglobin 0.4 Blood Gas A-a O2 Differential 246.9 H Oxyhemoglobin Percent 98.4 Total Hemoglobin 9.3 L Blood Gas Temperature 37.0 Blood Gas Respiration Rate 26.0 Blood Gas Actual Respiration Rate 26 Blood Gas Modality VENT - AC FiO2 100.0 Blood Gas Tidal Volume 500.0 Blood Gas Low PEEP Setting 5.0 Blood Gas Notified Whom KRISHAN DANIELLE Blood Gas Notified Time 03/02/2017 1:20:00 PM Potassium Level 4.0 Test 03/03/17 00:22 03/03/17 04:45 03/03/17 06:23 Bedside Glucose 140 112 Sodium Level 144 Potassium Level 3.8 Chloride Level 105 Carbon Dioxide Level 31 Anion Gap 12 Blood Urea Nitrogen 31 H Creatinine 1.61 H Glucose Level 125 Calcium Level 8.1 L Phosphorus Level 1.5 L Magnesium Level 1.9 Medications Medications Current Medications Ondansetron HCl (Zofran Inj) 4 mg Q6H PRN IV NAUSEA AND/OR VOMITING; Start 02/14 at 16:00 Pantoprazole (Protonix Iv) 40 mg DAILY@06 IV Last administered on 03/03/17 06: 15; Admin Dose 40 MG; Start 02/15/17 at 06:00 Acetaminophen (Tylenol Supp) 650 mg Q4H PRN [place] TEMP > 37C; Start 02/14/17 at 18: 00 Acetaminophen (Tylenol Liquid) 650 mg Q4H PRN PO TEMP > 37C Last administered on 02/21/17 03:16; Admin Dose 650 MG; Start 02/14/17 at 18:00 Eye Lubricant (Akwa Oint) 1 applic Q6 BOTH EYES Last administered on 03/03/17 06:16; Admin Dose 1 APPLIC; Start 02/14/17 at 18:00 Eye Lubricant 2 drop 2 drop Q6 BOTH EYES Last administered on 03/03/17 06:16; Admin Dose 2 DROP; Start 02/14/17 at 18:00 Norepinephrine 16 mg/Dextrose 500 ml @ 0 mls/hr TITRATE IV Last administered on 03/02/17 12:31; Admin Dose 3.75 MLS/HR; Start 02/14/17 at 22:00 Phenylephrine HCl/ Dextrose (Fritz-Syneph/D5W) 500 ml @ 75 mls/hr TITRATE IV ; Start 02/16/17 at 03:30 Miscellaneous Information 1 ea NOTE XX ; Start 02/16/17 at 11:30 Glucose (Glutose) 15 gm Q15M PRN PO DECREASED GLUCOSE; Start 02/16/17 at 11:30 Glucose (Glutose) 22.5 gm Q15M PRN PO DECREASED GLUCOSE; Start 02/16/17 at 11:30 Dextrose (D50w Syringe) 25 ml Q15M PRN IV DECREASED GLUCOSE; Start 02/16/17 at 11:30 Dextrose (D50w Syringe) 50 ml Q15M PRN IV DECREASED GLUCOSE; Start 02/16/17 at 11:30 Glucagon (Glucagen) 1 mg Q15M PRN IM DECREASED GLUCOSE; Start 02/16/17 at 11:30 Glucose 15 gm 15 gm Q15M PRN BUCCAL DECREASED GLUCOSE; Start 02/16/17 at 11:30 Vasopressin/ Dextrose (Vasostrict/D5W) 60 ml @ 1.8 mls/hr Q12H IV ; Start at 13:00 Aspirin (Aspirin) 81 mg DAILY GTB Last administered on 03/02/17 16:03; Admin Dose 81 MG; Start 02/18/17 at 09:00 Atorvastatin Calcium (Lipitor) 20 mg HS NGT Last administered on 03/02/17 20: 13; Admin Dose 20 MG; Start 02/17/17 at 21:00 Insulin Aspart (Novolog Insulin Pen) NOVOLOG *MILD* ALGORI... Q6 SC Last administered on 02/20/17 17:54; Admin Dose 1 UNIT; Start 02/20/17 at 00:00 IV Flush (NS 10 ml) 10 ml PRN PRN IV IV PROTOCOL; Start 02/20/17 at 16:00 Lorazepam 1 mg 1 mg Q6H PRN IV AGITATION/ANXIETY Last administered on 10:12; Admin Dose 1 MG; Start 02/20/17 at 21:40 Vancomycin HCl/ Sodium Chloride (Vancocin/NS) 250 ml @ 83.333 mls/ hr Q36H IVPB Last administered on 03/02/17 13:37; Admin Dose 83.333 MLS/HR; Start at 14:00 Morphine Sulfate 4 mg 4 mg Q2 PRN IV Severe Pain Last administered on 16:03; Admin Dose 4 MG; Start 02/26/17 at 21:30 Potassium Chloride 40 meq/ Dextrose 1,020 ml @ 75 mls/hr [id number] IV Last administered on 03/02/17 20:14; Admin Dose 75 MLS/HR; Start 03/02/17 at 08:00 Cefepime HCl 50 ml @ 100 mls/hr Q12 IVPB Last administered on 03/02/17 23:36 ; Admin Dose 100 MLS/HR; Start 03/02/17 at 11:00 Propofol (Diprivan) 100 ml @ 2.46 mls/hr Q12H IV Last administered on 00:25; Admin Dose 4.674 MLS/HR; Start 03/02/17 at 12:00 JENSEN OLIVIER DO Mar 03, 2017 08:03
[2017-03-03] MEDS: CEFEPIME 1GM/50 ML (PMX) 50 ML IVPB SCH ×2 (09:03→20:35)
[2017-03-03] MEDS: ASPIRIN 81 MG TAB GTB SCH (09:03)
--- NOTE | 2017-03-03 09:26 | PN ---
Date/Time of Note Date/Time of Note DATE: 03/03/17 TIME: 09:24 Assessment/Plan VTE Prophylaxis VTE Prophylaxis Intervention: SCD's Lines/Catheters Central line still needed: Yes Urinary Cath still in place: Yes Reason Cath still needed: other (indicate) Assessment/Plan Chief Complaint/Hosp Course 1. Status post cardiac arrest secondary to ventricular isolation. Status post CPR and ACLS protocol with return of spontaneous circulation. Status post hypothermia protocol. Echocardiogram showing severe left ventricular systolic dysfunction. 2. Ventilator dependent respiratory failure secondary to cardiac arrest. The patient was extubated and reintubated on 03/02/2017 because of worsening respiratory distress. 3. Left-sided rib fractures and barotrauma with resultant pneumothorax secondary to repeated chest compressions. Status post chest tube placement. 4. Sepsis with multifocal pneumonia and coagulase-negative Staphylococcus bacteremia. Continue antibiotics. 5. Acute on chronic kidney disease. The patient being followed by nephrology. 6. Septic shock. The patient on pressors. 7. Ischemic cardiomyopathy with ejection fraction of 20%. Cardiology following. 8. Normocytic, normochromic anemia. Underlying iron deficiency. Start iron supplements. 9. Fluids, electrolytes, and nutrition. IV fluids as per nephrology. 10. DVT prophylaxis. Bilateral sequential compression devices. 11. Gastrointestinal prophylaxis. Proton pump inhibitors. 12. Plan. Ventilator weaning as per pulmonary. Wean off pressors as blood pressure tolerates. Case discussed with Dr. Laughlin. Critical care time: 35 minutes. Problems: Subjective 24 Hr Interval Summary Free Text/Dictation The patient was reintubated on 03/02/2017 because of worsening respiratory distress. The patient remains on pressors. Exam/Review of Systems Vital Signs Vitals Vital Signs Date Time Temp Pulse Resp B/P Pulse Ox O2 Delivery O2 Flow Rate FiO2 03/03/17 08:45 77 26 120/82 100 Mechanical Ventilator 03/03/17 08:00 99.8 03/03/17 07:25 40 Intake and Output 03/02/17 03/02/17 03/03/17 15:00 23:00 07:00 Intake Total 1146.75 ml 1137.62 ml 788.524 ml Output Total 400 ml 222 ml 491 ml Balance 746.75 ml 915.62 ml 297.524 ml Exam General: Adequately build 76 year-old male lying in bed in no apparent distress. HEENT: Normocephalic, atraumatic. Eyes: Anicteric sclerae, conjunctivae clear. ENT: Nasal septum midline, oral mucosa moist. Neck supple, no JVD noticed. Respiratory: Bilaterally finished breath sounds. No use of accessory muscles of respiration. ETT connected to mechanical ventilator. Chest tube to Pleur-evac. Cardiovascular: S1, S2 heard. No murmurs or gallops. Abdomen: Soft, nontender, and nondistended. Bowel sounds positive in all 4 quadrants. Genitourinary: Patel catheter in place. Extremities: No cyanosis, no clubbing, no edema. Peripheral pulses palpable. Neurologic: The patient is awake, alert. Follows commands. Skin: Normal skin turgor. No skin rashes. Results Result Diagram: 03/02/17 0430 03/03/17 0445 Results 24 hrs Laboratory Tests Test 03/02/17 11:26 03/02/17 13:00 03/02/17 14:40 03/02/17 18:10 Bedside Glucose 119 136 Blood Gas Specimen Source Blood arterial Arterial Blood Date Drawn 03/02/2017 1:08:57 PM Arterial Blood pH (Temp corrected) 7.542 H Arterial Blood pCO2 (Temp correct) 33.0 L Arterial Blood pO2 (Temp corrected) 433.1 H Arterial Blood HCO3 27.7 H Arterial Blood Base Excess 5.1 H Arterial Blood Oxygen Saturation 99.1 Chris Test ACCEPTAB Arterial Blood Gas Puncture Site Right Radial Arterial Blood Carboxyhemoglobin 0.3 Arterial Blood Methemoglobin 0.4 Blood Gas A-a O2 Differential 246.9 H Oxyhemoglobin Percent 98.4 Total Hemoglobin 9.3 L Blood Gas Temperature 37.0 Blood Gas Respiration Rate 26.0 Blood Gas Actual Respiration Rate 26 Blood Gas Modality VENT - AC FiO2 100.0 Blood Gas Tidal Volume 500.0 Blood Gas Low PEEP Setting 5.0 Blood Gas Notified Whom KRISHAN DANIELLE Blood Gas Notified Time 03/02/2017 1:20:00 PM Potassium Level 4.0 Test 03/03/17 00:22 03/03/17 04:45 03/03/17 06:23 Bedside Glucose 140 112 Sodium Level 144 Potassium Level 3.8 Chloride Level 105 Carbon Dioxide Level 31 Anion Gap 12 Blood Urea Nitrogen 31 H Creatinine 1.61 H Glucose Level 125 Calcium Level 8.1 L Phosphorus Level 1.5 L Magnesium Level 1.9 Medications Medications Current Medications Ondansetron HCl (Zofran Inj) 4 mg Q6H PRN IV NAUSEA AND/OR VOMITING; Start 02/14 at 16:00 Pantoprazole (Protonix Iv) 40 mg DAILY@06 IV Last administered on 03/03/17 06: 15; Admin Dose 40 MG; Start 02/15/17 at 06:00 Acetaminophen (Tylenol Supp) 650 mg Q4H PRN [place] TEMP > 37C; Start 02/14/17 at 18: 00 Acetaminophen (Tylenol Liquid) 650 mg Q4H PRN PO TEMP > 37C Last administered on 02/21/17 03:16; Admin Dose 650 MG; Start 02/14/17 at 18:00 Eye Lubricant (Akwa Oint) 1 applic Q6 BOTH EYES Last administered on 03/03/17 06:16; Admin Dose 1 APPLIC; Start 02/14/17 at 18:00 Eye Lubricant 2 drop 2 drop Q6 BOTH EYES Last administered on 03/03/17 06:16; Admin Dose 2 DROP; Start 02/14/17 at 18:00 Norepinephrine 16 mg/Dextrose 500 ml @ 0 mls/hr TITRATE IV Last administered on 03/02/17 12:31; Admin Dose 3.75 MLS/HR; Start 02/14/17 at 22:00 Phenylephrine HCl/ Dextrose (Fritz-Syneph/D5W) 500 ml @ 75 mls/hr TITRATE IV ; Start 02/16/17 at 03:30 Miscellaneous Information 1 ea NOTE XX ; Start 02/16/17 at 11:30 Glucose (Glutose) 15 gm Q15M PRN PO DECREASED GLUCOSE; Start 02/16/17 at 11:30 Glucose (Glutose) 22.5 gm Q15M PRN PO DECREASED GLUCOSE; Start 02/16/17 at 11:30 Dextrose (D50w Syringe) 25 ml Q15M PRN IV DECREASED GLUCOSE; Start 02/16/17 at 11:30 Dextrose (D50w Syringe) 50 ml Q15M PRN IV DECREASED GLUCOSE; Start 02/16/17 at 11:30 Glucagon (Glucagen) 1 mg Q15M PRN IM DECREASED GLUCOSE; Start 02/16/17 at 11:30 Glucose 15 gm 15 gm Q15M PRN BUCCAL DECREASED GLUCOSE; Start 02/16/17 at 11:30 Vasopressin/ Dextrose (Vasostrict/D5W) 60 ml @ 1.8 mls/hr Q12H IV ; Start at 13:00 Aspirin (Aspirin) 81 mg DAILY GTB Last administered on 03/03/17 09:03; Admin Dose 81 MG; Start 02/18/17 at 09:00 Atorvastatin Calcium (Lipitor) 20 mg HS NGT Last administered on 03/02/17 20: 13; Admin Dose 20 MG; Start 02/17/17 at 21:00 Insulin Aspart (Novolog Insulin Pen) NOVOLOG *MILD* ALGORI... Q6 SC Last administered on 02/20/17 17:54; Admin Dose 1 UNIT; Start 02/20/17 at 00:00 IV Flush (NS 10 ml) 10 ml PRN PRN IV IV PROTOCOL; Start 02/20/17 at 16:00 Lorazepam 1 mg 1 mg Q6H PRN IV AGITATION/ANXIETY Last administered on 10:12; Admin Dose 1 MG; Start 02/20/17 at 21:40 Vancomycin HCl/ Sodium Chloride (Vancocin/NS) 250 ml @ 83.333 mls/ hr Q36H IVPB Last administered on 03/02/17 13:37; Admin Dose 83.333 MLS/HR; Start at 14:00 Morphine Sulfate 4 mg 4 mg Q2 PRN IV Severe Pain Last administered on 16:03; Admin Dose 4 MG; Start 02/26/17 at 21:30 Potassium Chloride 40 meq/ Dextrose 1,020 ml @ 75 mls/hr [id number] IV Last administered on 03/02/17 20:14; Admin Dose 75 MLS/HR; Start 03/02/17 at 08:00 Cefepime HCl 50 ml @ 100 mls/hr Q12 IVPB Last administered on 03/03/17 09:03 ; Admin Dose 100 MLS/HR; Start 03/02/17 at 11:00 Propofol 100 ml @ 2.46 mls/hr Q12H IV Last administered on 03/03/17 00:25; Admin Dose 4.674 MLS/HR; Start 03/02/17 at 12:00 Potassium Phosphate/Sodium Chloride (K Phos (Meq)/NS) 254.5455 ml @ 63.636 m... ONCE ONCE IVPB ; Start 03/03/17 at 09:30; Stop 03/03/17 at 13:29 MADDIE ASHFORD NP Mar 03, 2017 09:26
[2017-03-03] MEDS ORDERED: POTASSIUM PHOSPHATE 20 MEQ in SOD CHLORIDE 0.9% 250 ML IVPB ONE (09:30)
[2017-03-03] MEDS: POTASSIUM CHLORIDE 40 MEQ in DEXTROSE 5% 1,000 ML IV SCH ×2 (11:12→19:35)
--- NOTE | 2017-03-03 11:29 | CONS ---
Date/Time of Note Date/Time of Note DATE: 03/03/17 TIME: 11:25 Consult Date/Type/Reason Admit Date/Time Feb 14, 2017 at 16:02 Type of Consultation: Pulmonary/critical care Subjective Remains intubated on mechanical ventilation. Awake and alert follows simple commands. Moderate secretions. Objective Vital Signs Date Time Temp Pulse Resp B/P Pulse Ox O2 Delivery O2 Flow Rate FiO2 03/03/17 10:45 76 28 116/74 100 Mechanical Ventilator 03/03/17 09:50 40 03/03/17 08:00 99.8 Intake and Output 03/02/17 03/02/17 03/03/17 14:59 22:59 06:59 Intake Total 1054.29 ml 1116.15 ml 727.78 ml Output Total 453 ml 250 ml 456 ml Balance 601.29 ml 866.15 ml 271.78 ml Exam PHYSICAL EXAMINATION GENERAL: Elderly gentleman, intubated on mechanical ventilation, opens eyes and appears somewhat agitated. Orally intubated. VITAL SIGNS: see below. HEENT: Pupils equal, round, and reactive to light. CARDIAC: S1, S2, 1/6 systolic ejection murmur CHEST: Diminished air entry bilaterally. ABDOMEN: Mildly distended. Bowel sounds present no guarding or rebound EXTREMITIES: No cyanosis, clubbing edema +1 NEUROLOGIC: Generalized weakness Results/Medications Result Diagram: 03/02/17 0430 03/03/17 0445 Results 24 hrs Chest x-ray IMPRESSION: 1. Interval intubation with endotracheal tube situated approximately 2.6 cm above the agustín. The remaining tubes and lines remain in good position. 2. Patchy consolidation is again seen in the lungs bilaterally, most pronounced in the upper lobes where is not significantly changed. There has been some improvement in patchy infiltration in the left mid and lower lung zone with slight worsening on the right. 3. Left thoracostomy tube with trace apical pneumothorax. Multiple left-sided rib fractures are again seen. Laboratory Tests Test 03/02/17 11:26 03/02/17 13:00 03/02/17 14:40 03/02/17 18:10 Bedside Glucose 119 136 Blood Gas Specimen Source Blood arterial Arterial Blood Date Drawn 03/02/2017 1:08:57 PM Arterial Blood pH (Temp corrected) 7.542 H Arterial Blood pCO2 (Temp correct) 33.0 L Arterial Blood pO2 (Temp corrected) 433.1 H Arterial Blood HCO3 27.7 H Arterial Blood Base Excess 5.1 H Arterial Blood Oxygen Saturation 99.1 Chris Test ACCEPTAB Arterial Blood Gas Puncture Site Right Radial Arterial Blood Carboxyhemoglobin 0.3 Arterial Blood Methemoglobin 0.4 Blood Gas A-a O2 Differential 246.9 H Oxyhemoglobin Percent 98.4 Total Hemoglobin 9.3 L Blood Gas Temperature 37.0 Blood Gas Respiration Rate 26.0 Blood Gas Actual Respiration Rate 26 Blood Gas Modality VENT - AC FiO2 100.0 Blood Gas Tidal Volume 500.0 Blood Gas Low PEEP Setting 5.0 Blood Gas Notified Whom KRISHAN DANIELLE Blood Gas Notified Time 03/02/2017 1:20:00 PM Potassium Level 4.0 Test 03/03/17 00:22 03/03/17 04:45 03/03/17 06:23 Bedside Glucose 140 112 Sodium Level 144 Potassium Level 3.8 Chloride Level 105 Carbon Dioxide Level 31 Anion Gap 12 Blood Urea Nitrogen 31 H Creatinine 1.61 H Glucose Level 125 Calcium Level 8.1 L Phosphorus Level 1.5 L Magnesium Level 1.9 Medications Current Medications Ondansetron HCl (Zofran Inj) 4 mg Q6H PRN IV NAUSEA AND/OR VOMITING; Start 02/14 at 16:00 Pantoprazole (Protonix Iv) 40 mg DAILY@06 IV Last administered on 03/03/17 06: 15; Admin Dose 40 MG; Start 02/15/17 at 06:00 Acetaminophen (Tylenol Supp) 650 mg Q4H PRN [place] TEMP > 37C; Start 02/14/17 at 18: 00 Acetaminophen (Tylenol Liquid) 650 mg Q4H PRN PO TEMP > 37C Last administered on 02/21/17 03:16; Admin Dose 650 MG; Start 02/14/17 at 18:00 Eye Lubricant (Akwa Oint) 1 applic Q6 BOTH EYES Last administered on 03/03/17 06:16; Admin Dose 1 APPLIC; Start 02/14/17 at 18:00 Eye Lubricant 2 drop 2 drop Q6 BOTH EYES Last administered on 03/03/17 06:16; Admin Dose 2 DROP; Start 02/14/17 at 18:00 Norepinephrine 16 mg/Dextrose 500 ml @ 0 mls/hr TITRATE IV Last administered on 03/02/17 12:31; Admin Dose 3.75 MLS/HR; Start 02/14/17 at 22:00 Phenylephrine HCl/ Dextrose (Fritz-Syneph/D5W) 500 ml @ 75 mls/hr TITRATE IV ; Start 02/16/17 at 03:30 Miscellaneous Information 1 ea NOTE XX ; Start 02/16/17 at 11:30 Glucose (Glutose) 15 gm Q15M PRN PO DECREASED GLUCOSE; Start 02/16/17 at 11:30 Glucose (Glutose) 22.5 gm Q15M PRN PO DECREASED GLUCOSE; Start 02/16/17 at 11:30 Dextrose (D50w Syringe) 25 ml Q15M PRN IV DECREASED GLUCOSE; Start 02/16/17 at 11:30 Dextrose (D50w Syringe) 50 ml Q15M PRN IV DECREASED GLUCOSE; Start 02/16/17 at 11:30 Glucagon (Glucagen) 1 mg Q15M PRN IM DECREASED GLUCOSE; Start 02/16/17 at 11:30 Glucose 15 gm 15 gm Q15M PRN BUCCAL DECREASED GLUCOSE; Start 02/16/17 at 11:30 Vasopressin/ Dextrose (Vasostrict/D5W) 60 ml @ 1.8 mls/hr Q12H IV ; Start at 13:00 Aspirin (Aspirin) 81 mg DAILY GTB Last administered on 03/03/17 09:03; Admin Dose 81 MG; Start 02/18/17 at 09:00 Atorvastatin Calcium (Lipitor) 20 mg HS NGT Last administered on 03/02/17 20: 13; Admin Dose 20 MG; Start 02/17/17 at 21:00 Insulin Aspart (Novolog Insulin Pen) NOVOLOG *MILD* ALGORI... Q6 SC Last administered on 02/20/17 17:54; Admin Dose 1 UNIT; Start 02/20/17 at 00:00 IV Flush (NS 10 ml) 10 ml PRN PRN IV IV PROTOCOL; Start 02/20/17 at 16:00 Lorazepam 1 mg 1 mg Q6H PRN IV AGITATION/ANXIETY Last administered on 10:12; Admin Dose 1 MG; Start 02/20/17 at 21:40 Vancomycin HCl/ Sodium Chloride (Vancocin/NS) 250 ml @ 83.333 mls/ hr Q36H IVPB Last administered on 03/02/17 13:37; Admin Dose 83.333 MLS/HR; Start at 14:00 Morphine Sulfate 4 mg 4 mg Q2 PRN IV Severe Pain Last administered on 16:03; Admin Dose 4 MG; Start 02/26/17 at 21:30 Potassium Chloride 40 meq/ Dextrose 1,020 ml @ 75 mls/hr [id number] IV Last administered on 03/02/17 20:14; Admin Dose 75 MLS/HR; Start 03/02/17 at 08:00 Cefepime HCl 50 ml @ 100 mls/hr Q12 IVPB Last administered on 03/03/17 09:03 ; Admin Dose 100 MLS/HR; Start 03/02/17 at 11:00 Propofol 100 ml @ 2.46 mls/hr Q12H IV Last administered on 03/03/17 00:25; Admin Dose 4.674 MLS/HR; Start 03/02/17 at 12:00 Potassium Phosphate/Sodium Chloride (K Phos (Meq)/NS) 254.5455 ml @ 63.636 m... ONCE ONCE IVPB Last administered on 03/03/17 10:20; Admin Dose 63.636 MLS/HR; Start 03/03/17 at 09:30; Stop 03/03/17 at 13:29 Ferrous Sulfate (Feosol Liquid Cup) 300 mg BID NGT ; Start 03/03/17 at 21:00 Miscellaneous Information (*Rx Drug Level Order Reminder*) VANCOMYCIN TROUGH AT 0100 ONCE ONCE XX ; Start 03/04/17 at 01:00; Stop 03/04/17 at 01:01 Assessment/Plan Chief Complaint/Hosp Course IMP: 1. Cardiopulmonary Arrest: query primary cardiac event leading to respiratory failure and multilobar aspiration pneumonia, possible increasing pulmonary edema 2. Respiratory Failure/Vent 3. Multifocal pneumonia--likely aspiration 4. s/p VF 5. ARF 6. Barotrauma--s/p CPR 7. Hypoglycemia 8. Septic shock secondary to above 9. Encephalopathy possibly toxic metabolic. Slowly improving on Precedex. RECS: 1. Continue mechanical ventilation. Would recommend proceeding to tracheostomy is patient has been in respiratory distress for quite some time. 2. Pulmonary toilet 3. Continue tube feeding if tolerated 4. Lasix twice daily 5. Monitor H&H, transfusion packed red blood cells if continues to drop. 6. DVT and GI prophylaxis. Discussed with staff at bedside 40 min cc time Agree with bioethics consultation Problems: CAS LIMA MD, [facility] Mar 03, 2017 11:29
--- NOTE | 2017-03-03 17:36 | CONS ---
Date/Time of Note Date/Time of Note DATE: 03/03/17 TIME: 17:35 Assessment/Plan Assessment/Plan Additional Assessment/Plan Cardiopulmonary arrest Septic shock Vent dependent respiratory failure, reintubated Cardiomyopathy with ejection fraction 20% Non-ST elevation SC Acute kidney injury Acute blood loss anemia Paroxysmal atrial fibrillation -Patient status post hypothermia protocol. -Continue aspirin and statin therapy, no beta-naida secondary to bradycardia, no BERTHA inhibitor secondary to acute kidney injury. Continue diuretics as blood pressure and renal function permits Consultation Date/Type/Reason Admit Date/Time Feb 14, 2017 at 16:02 Type of Consultation: cv 24 HR Interval Summary Free Text/Dictation Patient reintubated, no new cardiac issues as per nursing staff Exam/Review of Systems Vital Signs Vitals Vital Signs Date Time Temp Pulse Resp B/P Pulse Ox O2 Delivery O2 Flow Rate FiO2 03/03/17 16:00 71 03/03/17 15:30 26 100 40 03/03/17 13:15 112/76 Mechanical Ventilator 03/03/17 12:00 99.6 Intake and Output 03/02/17 03/02/17 03/03/17 14:59 22:59 06:59 Intake Total 1054.29 ml 1116.15 ml 727.78 ml Output Total 453 ml 250 ml 456 ml Balance 601.29 ml 866.15 ml 271.78 ml Exam Intubated, awake, no apparent distress Head: normocephalic ENMT: intubated Respiratory: other (Coarse breath sounds bilaterally with scattered rhonchi, no wheezing) Cardiovascular: other (S1-S2 heard), regular rate and rhythm (Occasional irregularities) Gastrointestinal: bowel sounds, non-tender, soft Extremities: edema Results Result Diagram: 03/02/17 0430 03/03/17 0445 Results 24 hrs Laboratory Tests Test 03/02/17 18:10 03/03/17 00:22 03/03/17 04:45 03/03/17 06:23 Bedside Glucose 136 140 112 Sodium Level 144 Potassium Level 3.8 Chloride Level 105 Carbon Dioxide Level 31 Anion Gap 12 Blood Urea Nitrogen 31 H Creatinine 1.61 H Glucose Level 125 Calcium Level 8.1 L Phosphorus Level 1.5 L Magnesium Level 1.9 Test 03/03/17 12:56 Bedside Glucose 107 Medications Medications Current Medications Ondansetron HCl (Zofran Inj) 4 mg Q6H PRN IV NAUSEA AND/OR VOMITING; Start 02/14 at 16:00 Pantoprazole (Protonix Iv) 40 mg DAILY@06 IV Last administered on 03/03/17 06: 15; Admin Dose 40 MG; Start 02/15/17 at 06:00 Acetaminophen (Tylenol Supp) 650 mg Q4H PRN [place] TEMP > 37C; Start 02/14/17 at 18: 00 Acetaminophen (Tylenol Liquid) 650 mg Q4H PRN PO TEMP > 37C Last administered on 02/21/17 03:16; Admin Dose 650 MG; Start 02/14/17 at 18:00 Eye Lubricant (Akwa Oint) 1 applic Q6 BOTH EYES Last administered on 03/03/17 12:58; Admin Dose 1 APPLIC; Start 02/14/17 at 18:00 Eye Lubricant 2 drop 2 drop Q6 BOTH EYES Last administered on 03/03/17 12:58; Admin Dose 2 DROP; Start 02/14/17 at 18:00 Norepinephrine 16 mg/Dextrose 500 ml @ 0 mls/hr TITRATE IV Last administered on 03/02/17 12:31; Admin Dose 3.75 MLS/HR; Start 02/14/17 at 22:00 Phenylephrine HCl/ Dextrose (Fritz-Syneph/D5W) 500 ml @ 75 mls/hr TITRATE IV ; Start 02/16/17 at 03:30 Miscellaneous Information 1 ea NOTE XX ; Start 02/16/17 at 11:30 Glucose (Glutose) 15 gm Q15M PRN PO DECREASED GLUCOSE; Start 02/16/17 at 11:30 Glucose (Glutose) 22.5 gm Q15M PRN PO DECREASED GLUCOSE; Start 02/16/17 at 11:30 Dextrose (D50w Syringe) 25 ml Q15M PRN IV DECREASED GLUCOSE; Start 02/16/17 at 11:30 Dextrose (D50w Syringe) 50 ml Q15M PRN IV DECREASED GLUCOSE; Start 02/16/17 at 11:30 Glucagon (Glucagen) 1 mg Q15M PRN IM DECREASED GLUCOSE; Start 02/16/17 at 11:30 Glucose 15 gm 15 gm Q15M PRN BUCCAL DECREASED GLUCOSE; Start 02/16/17 at 11:30 Vasopressin/ Dextrose (Vasostrict/D5W) 60 ml @ 1.8 mls/hr Q12H IV ; Start at 13:00 Aspirin (Aspirin) 81 mg DAILY GTB Last administered on 03/03/17 09:03; Admin Dose 81 MG; Start 02/18/17 at 09:00 Atorvastatin Calcium (Lipitor) 20 mg HS NGT Last administered on 03/02/17 20: 13; Admin Dose 20 MG; Start 02/17/17 at 21:00 Insulin Aspart (Novolog Insulin Pen) NOVOLOG *MILD* ALGORI... Q6 SC Last administered on 02/20/17 17:54; Admin Dose 1 UNIT; Start 02/20/17 at 00:00 IV Flush (NS 10 ml) 10 ml PRN PRN IV IV PROTOCOL; Start 02/20/17 at 16:00 Lorazepam 1 mg 1 mg Q6H PRN IV AGITATION/ANXIETY Last administered on 10:12; Admin Dose 1 MG; Start 02/20/17 at 21:40 Vancomycin HCl/ Sodium Chloride (Vancocin/NS) 250 ml @ 83.333 mls/ hr Q36H IVPB Last administered on 03/02/17 13:37; Admin Dose 83.333 MLS/HR; Start at 14:00 Morphine Sulfate 4 mg 4 mg Q2 PRN IV Severe Pain Last administered on 16:03; Admin Dose 4 MG; Start 02/26/17 at 21:30 Potassium Chloride 40 meq/ Dextrose 1,020 ml @ 75 mls/hr [id number] IV Last administered on 03/02/17 20:14; Admin Dose 75 MLS/HR; Start 03/02/17 at 08:00 Cefepime HCl 50 ml @ 100 mls/hr Q12 IVPB Last administered on 03/03/17 09:03 ; Admin Dose 100 MLS/HR; Start 03/02/17 at 11:00 Propofol (Diprivan) 100 ml @ 2.46 mls/hr Q12H IV Last administered on 00:25; Admin Dose 4.674 MLS/HR; Start 03/02/17 at 12:00 Ferrous Sulfate (Feosol Liquid Cup) 300 mg BID NGT ; Start 03/03/17 at 21:00 Miscellaneous Information (*Rx Drug Level Order Reminder*) VANCOMYCIN TROUGH AT 0100 ONCE ONCE XX ; Start 03/04/17 at 01:00; Stop 03/04/17 at 01:01 Casey Schuler DO Mar 03, 2017 17:36
--- NOTE | 2017-03-03 18:02 | RADRPT ---
PROCEDURE: XR Chest. CLINICAL INDICATION: Shortness of breath. TECHNIQUE: Single frontal view. COMPARISON: 03/02/2017. FINDINGS: The endotracheal tube remains in satisfactory position. The nasogastric tube tip is in the stomach. The distal tip of the nasogastric tube is in the mid esophagus. The left chest tube is in satisfa ctory position. The left arm PICC line tip is in the lower superior vena cava in satisfactory positi on. There is bilateral pulmonary air space disease consistent with multifocal bilateral pneumonia. The heart size is normal. There is calcification in the aorta consistent with atherosclerosis. There is no pleural effusion. There is no pneumothorax. IMPRESSION: 1. Tubes and lines in satisfactory position. 2. Bilateral multifocal pneumonia, unchanged. 3. Atherosclerosis. RPTAT: QQ .Guillermo Palafox MD, Date Time Electronically viewed and signed by .Guillermo Palafox MD, on 03/03/2017 18:02 .R/
[2017-03-03] MEDS: FERROUS SULFATE 60 MG/ML 5ML CUP NGT SCH (20:34)
[2017-03-03] MEDS: ATORVASTATIN 20 MG TAB NGT SCH (20:35)
[2017-03-04] VITALS (96 sets, daily range): BP systolic 84–119; BP diastolic 57–83; PULSE 55–75; RESP 19–27
[2017-03-04] MEDS: VASOPRESSIN 60 UNIT in DEXTROSE 5% 57 ML IV SCH ×2 (01:00→13:00)
[2017-03-04] MEDS: VANCOMYCIN 1.25 GM in SOD CHLORIDE 0.9% 250 ML IVPB SCH (02:32)
[2017-03-04 05:19] LABS: BASOPHILS % 0.4 % (0.0-2.0); EOSINOPHILS # 0.4 10^3/ul (0.0-0.5); EOSINOPHILS % 4.9 % (0.0-7.0); HEMATOCRIT 25.5 % (42.0-52.0); HEMOGLOBIN 8.4 g/dl (14.0-18.0); LYMPHOCYTES # 1.1 10^3/ul (0.8-2.9); MEAN CORPUSCULAR HEMOGLOBIN 32.2 pg (29.0-33.0); MEAN CORPUSCULAR HGB CONC 32.9 g/dl (32.0-37.0); MEAN CORPUSCULAR VOLUME 97.7 fl (82.0-101.0); MEAN PLATELET VOLUME 10.2 fl (7.4-10.4); MONOCYTE # 0.4 10^3/ul (0.3-0.9); MONOCYTES % 5.3 % (0.0-11.0); NEUTROPHIL # 6.2 10^3/ul (1.6-7.5); NEUTROPHILS % 75.9 % (39.0-77.0); PLATELET COUNT 204 10^3/UL (140-415); RED BLOOD COUNT 2.61 10^6/ul (4.70-6.10); RED CELL DISTRIBUTION WIDTH 15.9 % (11.5-14.5); WHITE BLOOD COUNT 8.2 10^3/ul (4.8-10.8)
[2017-03-04] MEDS: ACETAMINOPHEN 650MG/20.3ML CUP PO PRN (05:27)
[2017-03-04] MEDS: ARTIFICIAL TEARS 15 ML OPH BOTH EYES SCH ×4 (05:28→17:48)
[2017-03-04] MEDS: FUROSEMIDE 40 MG INJ IV SCH ×2 (05:28→17:48)
[2017-03-04] MEDS: PANTOPRAZOLE 40 MG INJ IV SCH (05:28)
[2017-03-04] MEDS: OCULAR LUBRICANT 3.5 GM OPH OINT BOTH EYES SCH ×4 (05:28→17:49)
[2017-03-04] MEDS: INSULIN ASPART [NOVOLOG] 3 ML PEN SC SCH ×4 (05:40→17:48)
[2017-03-04 06:15] LABS: CREATININE 1.55 mg/dl (0.61-1.24); MAGNESIUM 1.8 mg/dl (1.7-2.5); PHOSPHORUS 2.4 mg/dl (2.5-4.9); POTASSIUM 3.8 mmol/L (3.5-5.1)
--- NOTE | 2017-03-04 07:13 | PN ---
Date/Time of Note Date/Time of Note DATE: 03/04/17 TIME: 07:10 Assessment/Plan VTE Prophylaxis VTE Prophylaxis Intervention: SCD's Lines/Catheters IV C[facility]ter Type (from [facility]): PICC Line Central line still needed: Yes Urinary Cath still in place: Yes Reason Cath still needed: other (indicate) Assessment/Plan Chief Complaint/Hosp Course 1. Status post cardiac arrest secondary to ventricular isolation. Status post CPR and ACLS protocol with return of spontaneous circulation. Status post hypothermia protocol. Echocardiogram showing severe left ventricular systolic dysfunction. 2. Ventilator dependent respiratory failure secondary to cardiac arrest. The patient was extubated and reintubated on 03/02/2017 because of worsening respiratory distress. 3. Left-sided rib fractures and barotrauma with resultant pneumothorax secondary to repeated chest compressions. Status post chest tube placement. 4. Sepsis with multifocal pneumonia and coagulase-negative Staphylococcus bacteremia. Continue antibiotics. 5. Acute on chronic kidney disease. The patient being followed by nephrology. 6. Septic shock. The patient on pressors. 7. Ischemic cardiomyopathy with ejection fraction of 20%. Cardiology following. 8. Normocytic, normochromic anemia. Underlying iron deficiency. Continue iron supplements. 9. Fluids, electrolytes, and nutrition. IV fluids as per nephrology. 10. DVT prophylaxis. Bilateral sequential compression devices. 11. Gastrointestinal prophylaxis. Proton pump inhibitors. 12. Plan. Ventilator weaning as per pulmonary. Wean off pressors as blood pressure tolerates. Case discussed with Dr. Laughlin. Critical care time: 35 minutes. Problems: Subjective 24 Hr Interval Summary Free Text/Dictation The patient is currently a DNR. Exam/Review of Systems Vital Signs Vitals Vital Signs Date Time Temp Pulse Resp B/P Pulse Ox O2 Delivery O2 Flow Rate FiO2 03/04/17 06:30 69 26 93/64 100 03/04/17 06:00 Mechanical Ventilator 03/04/17 05:22 40 03/04/17 04:00 100.1 Intake and Output 03/03/17 03/03/17 03/04/17 15:00 23:00 07:00 Intake Total 1256.322 ml 1169.906 ml 1445.77 ml Output Total 395 ml 2243 ml 1429 ml Balance 861.322 ml -1073.094 ml 16.77 ml Exam General: Adequately build 76 year-old male lying in bed in no apparent distress. HEENT: Normocephalic, atraumatic. Eyes: Anicteric sclerae, conjunctivae clear. ENT: Nasal septum midline, oral mucosa moist. Neck supple, no JVD noticed. Respiratory: Bilaterally finished breath sounds. No use of accessory muscles of respiration. ETT connected to mechanical ventilator. Chest tube to Pleur-evac. Cardiovascular: S1, S2 heard. No murmurs or gallops. Abdomen: Soft, nontender, and nondistended. Bowel sounds positive in all 4 quadrants. Genitourinary: Patel catheter in place. Extremities: No cyanosis, no clubbing, no edema. Peripheral pulses palpable. Neurologic: The patient is awake, alert. Follows commands. Skin: Normal skin turgor. No skin rashes. Results Result Diagram: 03/04/17 0500 03/03/17 0445 Results 24 hrs Laboratory Tests Test 03/03/17 12:56 03/03/17 18:27 03/04/17 00:54 03/04/17 02:20 Bedside Glucose 107 107 101 Vancomycin Level Trough 17.5 Test 03/04/17 05:00 03/04/17 05:40 White Blood Count 8.2 Red Blood Count 2.61 L Hemoglobin 8.4 L Hematocrit 25.5 L Mean Corpuscular Volume 97.7 Mean Corpuscular Hemoglobin 32.2 Mean Corpuscular Hemoglobin Concent 32.9 Red Cell Distribution Width 15.9 H Platelet Count 204 # Mean Platelet Volume 10.2 Neutrophils % 75.9 Lymphocytes % 13.0 L Monocytes % 5.3 Eosinophils % 4.9 Basophils % 0.4 Nucleated Red Blood Cells % 0.0 Neutrophils # 6.2 Lymphocytes # 1.1 Monocytes # 0.4 Eosinophils # 0.4 Basophils # 0.0 Nucleated Red Blood Cells # 0.0 Bedside Glucose 86 Medications Medications Current Medications Ondansetron HCl (Zofran Inj) 4 mg Q6H PRN IV NAUSEA AND/OR VOMITING; Start 02/14 at 16:00 Pantoprazole (Protonix Iv) 40 mg DAILY@06 IV Last administered on 03/04/17t 05: 28; Admin Dose 40 MG; Start 02/15/17 at 06:00 Acetaminophen (Tylenol Supp) 650 mg Q4H PRN [place] TEMP > 37C; Start 02/14/17 at 18: 00 Acetaminophen (Tylenol Liquid) 650 mg Q4H PRN PO TEMP > 37C Last administered on 03/04/17 05:27; Admin Dose 650 MG; Start 02/14/17 at 18:00 Eye Lubricant (Akwa Oint) 1 applic Q6 BOTH EYES Last administered on 03/04/17 05:28; Admin Dose 1 APPLIC; Start 02/14/17 at 18:00 Eye Lubricant 2 drop 2 drop Q6 BOTH EYES Last administered on 03/04/17 05:28; Admin Dose 2 DROP; Start 02/14/17 at 18:00 Norepinephrine 16 mg/Dextrose 500 ml @ 0 mls/hr TITRATE IV Last administered on 03/02/17 12:31; Admin Dose 3.75 MLS/HR; Start 02/14/17 at 22:00 Phenylephrine HCl/ Dextrose (Fritz-Syneph/D5W) 500 ml @ 75 mls/hr TITRATE IV ; Start 02/16/17 at 03:30 Miscellaneous Information 1 ea NOTE XX ; Start 02/16/17 at 11:30 Glucose (Glutose) 15 gm Q15M PRN PO DECREASED GLUCOSE; Start 02/16/17 at 11:30 Glucose (Glutose) 22.5 gm Q15M PRN PO DECREASED GLUCOSE; Start 02/16/17 at 11:30 Dextrose (D50w Syringe) 25 ml Q15M PRN IV DECREASED GLUCOSE; Start 02/16/17 at 11:30 Dextrose (D50w Syringe) 50 ml Q15M PRN IV DECREASED GLUCOSE; Start 02/16/17 at 11:30 Glucagon (Glucagen) 1 mg Q15M PRN IM DECREASED GLUCOSE; Start 02/16/17 at 11:30 Glucose 15 gm 15 gm Q15M PRN BUCCAL DECREASED GLUCOSE; Start 02/16/17 at 11:30 Vasopressin/ Dextrose (Vasostrict/D5W) 60 ml @ 1.8 mls/hr Q12H IV ; Start at 13:00 Aspirin (Aspirin) 81 mg DAILY GTB Last administered on 03/03/17 09:03; Admin Dose 81 MG; Start 02/18/17 at 09:00 Atorvastatin Calcium (Lipitor) 20 mg HS NGT Last administered on 03/03/17 20: 35; Admin Dose 20 MG; Start 02/17/17 at 21:00 Insulin Aspart (Novolog Insulin Pen) NOVOLOG *MILD* ALGORI... Q6 SC Last administered on 02/20/17 17:54; Admin Dose 1 UNIT; Start 02/20/17 at 00:00 IV Flush (NS 10 ml) 10 ml PRN PRN IV IV PROTOCOL; Start 02/20/17 at 16:00 Lorazepam 1 mg 1 mg Q6H PRN IV AGITATION/ANXIETY Last administered on 10:12; Admin Dose 1 MG; Start 02/20/17 at 21:40 Vancomycin HCl/ Sodium Chloride (Vancocin/NS) 250 ml @ 83.333 mls/ hr Q36H IVPB Last administered on 03/04/17 02:32; Admin Dose 83.333 MLS/HR; Start at 14:00 Morphine Sulfate 4 mg 4 mg Q2 PRN IV Severe Pain Last administered on 16:03; Admin Dose 4 MG; Start 02/26/17 at 21:30 Potassium Chloride 40 meq/ Dextrose 1,020 ml @ 75 mls/hr [id number] IV Last administered on 03/03/17 19:35; Admin Dose 75 MLS/HR; Start 03/02/17 at 08:00 Cefepime HCl 50 ml @ 100 mls/hr Q12 IVPB Last administered on 03/03/17 20:35 ; Admin Dose 100 MLS/HR; Start 03/02/17 at 11:00 Propofol (Diprivan) 100 ml @ 2.46 mls/hr Q12H IV Last administered on 19:36; Admin Dose 5.412 MLS/HR; Start 03/02/17 at 12:00 Ferrous Sulfate (Feosol Liquid Cup) 300 mg BID NGT Last administered on 20:34; Admin Dose 300 MG; Start 03/03/17 at 21:00 MADDIE ASHFORD NP Mar 04, 2017 07:13
[2017-03-04] MEDS: PROPOFOL 100 ML IV SCH ×2 (07:52→21:07)
--- NOTE | 2017-03-04 07:54 | PN ---
Date/Time of Note Date/Time of Note DATE: 03/04/17 TIME: 07:50 Assessment/Plan Lines/Catheters IV Catheter Type (from Nrs): PICC Line Urinary Cath still in place: Yes Assessment/Plan Chief Complaint/Hosp Course 1. Nonoliguric acute kidney injury with previous baseline creatinine 0.8 mg/dL. -Etiology of CROW secondary to ATN due to ischemic hypoperfusion shock. -Urinalysis was reviewed evidence of proteinuria no evidence of active sediment -Renal function has been fluctuating but overall stable, likely due to diuretic therapy -Continue Lasix at current dose, monitor closely -Continue supportive care, renally dose all meds, avoid nephrotoxic Anemia. -Monitor H&H levels Mineral bone disorder -Monitor calcium phosphorus levels Replete phosphorus as needed Hypokalemia Improved continue to monitor Hypernatremia Improved Increase free water flushes 200 every 4 hours DC D5 water Monitor serial sodium levels Volume overload -Improving -Continue lasix Cardiac arrest. Patient status post hypothermia protocol -Follow-up with cardiology Ventilator dependent respiratory failure - ABGs reviewed, chest x-ray reviewed -Follow-up with pulmonary Pneumothorax -Status post chest tube placement, continue to monitor Septic shock -Cultures positive for bacteremia -Continue antibiotic regimen Wean off pressors -Follow-up with ID -Monitor closely Problems: Subjective 24 Hr Interval Summary Free Text/Dictation Patient seen and examined Remains critically ill on pressor support being weaned down Good urinary output Exam/Review of Systems Vital Signs Vitals Vital Signs Date Time Temp Pulse Resp B/P Pulse Ox O2 Delivery O2 Flow Rate FiO2 03/04/17 07:30 100.3 71 26 114/69 99 Mechanical Ventilator 03/04/17 05:22 40 Intake and Output 03/03/17 03/03/17 03/04/17 15:00 23:00 07:00 Intake Total 1256.322 ml 1169.906 ml 1453.64 ml Output Total 395 ml 2243 ml 1429 ml Balance 861.322 ml -1073.094 ml 24.64 ml Exam HEENT: Head is normocephalic, NECK: Supple. HEART: Irregular LUNGS: Show diminished breath sounds at base. ABDOMEN: Soft, nontender to palpation without rebound or guarding. EXTREMITIES: Negative for clubbing, cyanosis. DERMATOLOGIC: No rashes. MUSCULOSKELETAL: No joint effusions, NEUROLOGIC: No change in exam. Results Result Diagram: 03/04/17 0500 03/04/17 0500 Results 24 hrs Laboratory Tests Test 03/03/17 12:56 03/03/17 18:27 03/04/17 00:54 03/04/17 02:20 Bedside Glucose 107 107 101 Vancomycin Level Trough 17.5 Test 03/04/17 05:00 03/04/17 05:40 White Blood Count 8.2 Red Blood Count 2.61 L Hemoglobin 8.4 L Hematocrit 25.5 L Mean Corpuscular Volume 97.7 Mean Corpuscular Hemoglobin 32.2 Mean Corpuscular Hemoglobin Concent 32.9 Red Cell Distribution Width 15.9 H Platelet Count 204 # Mean Platelet Volume 10.2 Neutrophils % 75.9 Lymphocytes % 13.0 L Monocytes % 5.3 Eosinophils % 4.9 Basophils % 0.4 Nucleated Red Blood Cells % 0.0 Neutrophils # 6.2 Lymphocytes # 1.1 Monocytes # 0.4 Eosinophils # 0.4 Basophils # 0.0 Nucleated Red Blood Cells # 0.0 Sodium Level 140 Potassium Level 3.8 Chloride Level 99 Carbon Dioxide Level 31 Anion Gap 14 Blood Urea Nitrogen 31 H Creatinine 1.55 H Glucose Level 114 Calcium Level 8.0 L Phosphorus Level 2.4 L Magnesium Level 1.8 Bedside Glucose 86 Medications Medications Current Medications Ondansetron HCl (Zofran Inj) 4 mg Q6H PRN IV NAUSEA AND/OR VOMITING; Start 02/14 at 16:00 Pantoprazole (Protonix Iv) 40 mg DAILY@06 IV Last administered on 03/04/17 05: 28; Admin Dose 40 MG; Start 02/15/17 at 06:00 Acetaminophen (Tylenol Supp) 650 mg Q4H PRN [place] TEMP > 37C; Start 02/14/17 at 18: 00 Acetaminophen (Tylenol Liquid) 650 mg Q4H PRN PO TEMP > 37C Last administered on 03/04/17 05:27; Admin Dose 650 MG; Start 02/14/17 at 18:00 Eye Lubricant (Akwa Oint) 1 applic Q6 BOTH EYES Last administered on 03/04/17 05:28; Admin Dose 1 APPLIC; Start 02/14/17 at 18:00 Eye Lubricant 2 drop 2 drop Q6 BOTH EYES Last administered on 03/04/17 05:28; Admin Dose 2 DROP; Start 02/14/17 at 18:00 Norepinephrine 16 mg/Dextrose 500 ml @ 0 mls/hr TITRATE IV Last administered on 03/02/17 12:31; Admin Dose 3.75 MLS/HR; Start 02/14/17 at 22:00 Phenylephrine HCl/ Dextrose (Fritz-Syneph/D5W) 500 ml @ 75 mls/hr TITRATE IV ; Start 02/16/17 at 03:30 Miscellaneous Information 1 ea NOTE XX ; Start 02/16/17 at 11:30 Glucose (Glutose) 15 gm Q15M PRN PO DECREASED GLUCOSE; Start 02/16/17 at 11:30 Glucose (Glutose) 22.5 gm Q15M PRN PO DECREASED GLUCOSE; Start 02/16/17 at 11:30 Dextrose (D50w Syringe) 25 ml Q15M PRN IV DECREASED GLUCOSE; Start 02/16/17 at 11:30 Dextrose (D50w Syringe) 50 ml Q15M PRN IV DECREASED GLUCOSE; Start 02/16/17 at 11:30 Glucagon (Glucagen) 1 mg Q15M PRN IM DECREASED GLUCOSE; Start 02/16/17 at 11:30 Glucose 15 gm 15 gm Q15M PRN BUCCAL DECREASED GLUCOSE; Start 02/16/17 at 11:30 Vasopressin/ Dextrose (Vasostrict/D5W) 60 ml @ 1.8 mls/hr Q12H IV ; Start at 13:00 Aspirin (Aspirin) 81 mg DAILY GTB Last administered on 03/03/17 09:03; Admin Dose 81 MG; Start 02/18/17 at 09:00 Atorvastatin Calcium (Lipitor) 20 mg HS NGT Last administered on 03/03/17 20: 35; Admin Dose 20 MG; Start 02/17/17 at 21:00 Insulin Aspart (Novolog Insulin Pen) NOVOLOG *MILD* ALGORI... Q6 SC Last administered on 02/20/17 17:54; Admin Dose 1 UNIT; Start 02/20/17 at 00:00 IV Flush (NS 10 ml) 10 ml PRN PRN IV IV PROTOCOL; Start 02/20/17 at 16:00 Lorazepam 1 mg 1 mg Q6H PRN IV AGITATION/ANXIETY Last administered on 10:12; Admin Dose 1 MG; Start 02/20/17 at 21:40 Vancomycin HCl/ Sodium Chloride (Vancocin/NS) 250 ml @ 83.333 mls/ hr Q36H IVPB Last administered on 03/04/17 02:32; Admin Dose 83.333 MLS/HR; Start at 14:00 Morphine Sulfate 4 mg 4 mg Q2 PRN IV Severe Pain Last administered on 16:03; Admin Dose 4 MG; Start 02/26/17 at 21:30 Potassium Chloride 40 meq/ Dextrose 1,020 ml @ 75 mls/hr [id number] IV Last administered on 03/03/17 19:35; Admin Dose 75 MLS/HR; Start 03/02/17 at 08:00 Cefepime HCl 50 ml @ 100 mls/hr Q12 IVPB Last administered on 03/03/17 20:35 ; Admin Dose 100 MLS/HR; Start 03/02/17 at 11:00 Propofol (Diprivan) 100 ml @ 2.46 mls/hr Q12H IV Last administered on 19:36; Admin Dose 5.412 MLS/HR; Start 03/02/17 at 12:00 Ferrous Sulfate (Feosol Liquid Cup) 300 mg BID NGT Last administered on 20:34; Admin Dose 300 MG; Start 03/03/17 at 21:00 JENSEN OILVIER DO Mar 04, 2017 07:54
[2017-03-04] MEDS: CEFEPIME 1GM/50 ML (PMX) 50 ML IVPB SCH ×2 (08:41→20:52)
[2017-03-04] MEDS: ASPIRIN 81 MG TAB GTB SCH (08:41)
[2017-03-04] MEDS: FERROUS SULFATE 60 MG/ML 5ML CUP NGT SCH ×2 (08:41→20:52)
[2017-03-04] MEDS ORDERED: POTASSIUM PHOSPHATE 20 MEQ in SOD CHLORIDE 0.9% 250 ML IVPB ONE (09:30)
--- NOTE | 2017-03-04 10:38 | CONS ---
Date/Time of Note Date/Time of Note DATE: 03/04/17 TIME: 10:37 Consult Date/Type/Reason Admit Date/Time Feb 14, 2017 at 16:02 Type of Consultation: Pulmonary ICU Subjective Patient remains intubated on mechanical ventilation. Require endotracheal tube to be exchanged yesterday secondary to cuff leak. Tolerated this procedure well without complication. Remains somewhat agitated on mechanical ventilation not consistently following commands. Currently not requiring vasopressors. Objective Vital Signs Date Time Temp Pulse Resp B/P Pulse Ox O2 Delivery O2 Flow Rate FiO2 03/04/17 10:15 66 26 113/74 100 03/04/17 10:00 Mechanical Ventilator 03/04/17 09:06 50 03/04/17 07:30 100.3 Intake and Output 03/03/17 03/03/17 03/04/17 14:59 22:59 06:59 Intake Total 1295.702 ml 1163.000 ml 1587.97 ml Output Total 369 ml 2005 ml 1733 ml Balance 926.702 ml -842.000 ml -145.03 ml Exam PHYSICAL EXAMINATION GENERAL: Elderly gentleman, intubated on mechanical ventilation, opens eyes and appears somewhat agitated. Orally intubated. VITAL SIGNS: see below. HEENT: Pupils equal, round, and reactive to light. CARDIAC: S1, S2, 1/6 systolic ejection murmur CHEST: Diminished air entry bilaterally. ABDOMEN: Mildly distended. Bowel sounds present no guarding or rebound EXTREMITIES: No cyanosis, clubbing edema +1 NEUROLOGIC: Generalized weakness Results/Medications Result Diagram: 03/04/17 0500 03/04/17 0500 Results 24 hrs Laboratory Tests Test 03/03/17 12:56 03/03/17 18:27 03/04/17 00:54 03/04/17 02:20 Bedside Glucose 107 107 101 Vancomycin Level Trough 17.5 Test 03/04/17 05:00 03/04/17 05:40 White Blood Count 8.2 Red Blood Count 2.61 L Hemoglobin 8.4 L Hematocrit 25.5 L Mean Corpuscular Volume 97.7 Mean Corpuscular Hemoglobin 32.2 Mean Corpuscular Hemoglobin Concent 32.9 Red Cell Distribution Width 15.9 H Platelet Count 204 # Mean Platelet Volume 10.2 Neutrophils % 75.9 Lymphocytes % 13.0 L Monocytes % 5.3 Eosinophils % 4.9 Basophils % 0.4 Nucleated Red Blood Cells % 0.0 Neutrophils # 6.2 Lymphocytes # 1.1 Monocytes # 0.4 Eosinophils # 0.4 Basophils # 0.0 Nucleated Red Blood Cells # 0.0 Sodium Level 140 Potassium Level 3.8 Chloride Level 99 Carbon Dioxide Level 31 Anion Gap 14 Blood Urea Nitrogen 31 H Creatinine 1.55 H Glucose Level 114 Calcium Level 8.0 L Phosphorus Level 2.4 L Magnesium Level 1.8 Bedside Glucose 86 Medications Current Medications Ondansetron HCl (Zofran Inj) 4 mg Q6H PRN IV NAUSEA AND/OR VOMITING; Start 02/14 at 16:00 Pantoprazole (Protonix Iv) 40 mg DAILY@06 IV Last administered on 03/04/17 05: 28; Admin Dose 40 MG; Start 02/15/17 at 06:00 Acetaminophen (Tylenol Supp) 650 mg Q4H PRN [place] TEMP > 37C; Start 02/14/17 at 18: 00 Acetaminophen (Tylenol Liquid) 650 mg Q4H PRN PO TEMP > 37C Last administered on 03/04/17 05:27; Admin Dose 650 MG; Start 02/14/17 at 18:00 Eye Lubricant (Akwa Oint) 1 applic Q6 BOTH EYES Last administered on 03/04/17 05:28; Admin Dose 1 APPLIC; Start 02/14/17 at 18:00 Eye Lubricant 2 drop 2 drop Q6 BOTH EYES Last administered on 03/04/17 05:28; Admin Dose 2 DROP; Start 02/14/17 at 18:00 Norepinephrine 16 mg/Dextrose 500 ml @ 0 mls/hr TITRATE IV Last administered on 03/04/17 07:55; Admin Dose 5.62 MLS/HR; Start 02/14/17 at 22:00 Phenylephrine HCl/ Dextrose (Fritz-Syneph/D5W) 500 ml @ 75 mls/hr TITRATE IV ; Start 02/16/17 at 03:30 Miscellaneous Information 1 ea NOTE XX ; Start 02/16/17 at 11:30 Glucose (Glutose) 15 gm Q15M PRN PO DECREASED GLUCOSE; Start 02/16/17 at 11:30 Glucose (Glutose) 22.5 gm Q15M PRN PO DECREASED GLUCOSE; Start 02/16/17 at 11:30 Dextrose (D50w Syringe) 25 ml Q15M PRN IV DECREASED GLUCOSE; Start 02/16/17 at 11:30 Dextrose (D50w Syringe) 50 ml Q15M PRN IV DECREASED GLUCOSE; Start 02/16/17 at 11:30 Glucagon (Glucagen) 1 mg Q15M PRN IM DECREASED GLUCOSE; Start 02/16/17 at 11:30 Glucose 15 gm 15 gm Q15M PRN BUCCAL DECREASED GLUCOSE; Start 02/16/17 at 11:30 Vasopressin/ Dextrose (Vasostrict/D5W) 60 ml @ 1.8 mls/hr Q12H IV ; Start at 13:00 Aspirin (Aspirin) 81 mg DAILY GTB Last administered on 03/04/17 08:41; Admin Dose 81 MG; Start 02/18/17 at 09:00 Atorvastatin Calcium (Lipitor) 20 mg HS NGT Last administered on 03/03/17 20: 35; Admin Dose 20 MG; Start 02/17/17 at 21:00 Insulin Aspart (Novolog Insulin Pen) NOVOLOG *MILD* ALGORI... Q6 SC Last administered on 02/20/17 17:54; Admin Dose 1 UNIT; Start 02/20/17 at 00:00 IV Flush (NS 10 ml) 10 ml PRN PRN IV IV PROTOCOL; Start 02/20/17 at 16:00 Lorazepam (Ativan) 1 mg Q6H PRN IV AGITATION/ANXIETY Last administered on 10:12; Admin Dose 1 MG; Start 02/20/17 at 21:40 Morphine Sulfate 4 mg 4 mg Q2 PRN IV Severe Pain Last administered on 16:03; Admin Dose 4 MG; Start 02/26/17 at 21:30 Cefepime HCl 50 ml @ 100 mls/hr Q12 IVPB Last administered on 03/04/17 08:41 ; Admin Dose 100 MLS/HR; Start 03/02/17 at 11:00 Propofol (Diprivan) 100 ml @ 2.46 mls/hr Q12H IV Last administered on 07:52; Admin Dose 9.84 MLS/HR; Start 03/02/17 at 12:00 Ferrous Sulfate 300 mg 300 mg BID NGT Last administered on 03/04/17 08:41; Admin Dose 300 MG; Start 03/03/17 at 21:00 Potassium Phosphate 20 meq/ Sodium Chloride 254.5455 ml @ 63.636 m... ONCE ONCE IVPB Last administered on 03/04/17t 10:25; Admin Dose 63.636 MLS/HR; Start 03/04/17 at 09:30; Stop 03/04/17 at 13:29 Vancomycin HCl (Vancocin) 250 ml @ 125 mls/hr Q36H IVPB ; Start 03/05/17 at 14: 00 Assessment/Plan Chief Complaint/Hosp Course IMP: 1. Cardiopulmonary Arrest: query primary cardiac event leading to respiratory failure and multilobar aspiration pneumonia, possible increasing pulmonary edema currently not amenable for mechanical ventilation 2. Respiratory Failure/Vent 3. Multifocal pneumonia--likely aspiration 4. s/p VF 5. ARF 6. Barotrauma--s/p CPR 7. Hypoglycemia 8. Septic shock secondary to above 9. Encephalopathy possibly toxic metabolic. Slowly improving on Precedex. RECS: 1. Continue mechanical ventilation. We will proceed with tracheostomy and G- tube has no family members present. Patient remains awake and alert intermittently and therefore not candidate for intensive care at present. I do however agree with DNR status as cardiac arrest with result in significant decreased quality of life. 2. Pulmonary toilet 3. Continue tube feeding if tolerated 4. Lasix twice daily 5. Monitor H&H, transfusion packed red blood cells if continues to drop. 6. DVT and GI prophylaxis. Discussed with staff at bedside 40 min cc time Agree with bioethics consultation Problems: CAS LIMA MD, [facility] Mar 04, 2017 10:38
--- NOTE | 2017-03-04 11:29 | RADRPT ---
PROCEDURE: XR Chest. CLINICAL INDICATION: pna chf TECHNIQUE: PA and Lateral views of the chest were obtained. COMPARISON: Chest x-ray 03/03/2017 FINDINGS: The endotracheal tube, left chest tube, and nasogastric tube are in stable adequate positions. The cardiac silhouette remains mildly enlarged. There is atherosclerotic calcification of the thorac ic aorta. There has been interval slight decrease in diffuse patchy opacities scattered throughout both lungs. No pneumothorax or significant pleural effusion is identified. There are degenerative changes of the visualized spine. IMPRESSION: 1. Interval slight improvement in diffuse patchy bilateral lung opacities. 2. Mild cardiomegaly. 3. Thoracic aortic atherosclerotic disease. RPTAT: PP Physician Jovanny Date Time Electronically viewed and signed by Physician Jovanny on 03/04/2017 11:28 MOHSEN/
--- NOTE | 2017-03-04 12:35 | CONS ---
Date/Time of Note Date/Time of Note DATE: 03/04/17 TIME: 12:34 Assessment/Plan Assessment/Plan Additional Assessment/Plan Cardiopulmonary arrest Septic shock Vent dependent respiratory failure, reintubated Cardiomyopathy with ejection fraction 20% Non-ST elevation LA Acute kidney injury Acute blood loss anemia Paroxysmal atrial fibrillation -Patient status post hypothermia protocol. -Continue aspirin and statin therapy, no beta-naida secondary to bradycardia, no BERTHA inhibitor secondary to acute kidney injury. Diuretics as per our renal colleagues. Consultation Date/Type/Reason Admit Date/Time Feb 14, 2017 at 16:02 Type of Consultation: cv 24 HR Interval Summary Free Text/Dictation Patient seen and examined Exam/Review of Systems Vital Signs Vitals Vital Signs Date Time Temp Pulse Resp B/P Pulse Ox O2 Delivery O2 Flow Rate FiO2 03/04/17 11:30 65 26 108/77 99 Mechanical Ventilator 03/04/17 11:20 40 03/04/17 11:00 99.6 Intake and Output 03/03/17 03/03/17 03/04/17 14:59 22:59 06:59 Intake Total 1295.702 ml 1163.000 ml 1587.97 ml Output Total 369 ml 2005 ml 1733 ml Balance 926.702 ml -842.000 ml -145.03 ml Exam Sleeping but arousable, no apparent distress Head: normocephalic ENMT: intubated Respiratory: other (Coarse breath sounds bilaterally, no wheezing) Cardiovascular: other (S1-S2 heard), regular rate and rhythm Gastrointestinal: bowel sounds, non-tender, soft Extremities: edema Results Result Diagram: 03/04/17 0500 03/04/17 0500 Results 24 hrs Laboratory Tests Test 03/03/17 12:56 03/03/17 18:27 03/04/17 00:54 03/04/17 02:20 Bedside Glucose 107 107 101 Vancomycin Level Trough 17.5 Test 03/04/17 05:00 03/04/17 05:40 03/04/17 11:49 White Blood Count 8.2 Red Blood Count 2.61 L Hemoglobin 8.4 L Hematocrit 25.5 L Mean Corpuscular Volume 97.7 Mean Corpuscular Hemoglobin 32.2 Mean Corpuscular Hemoglobin Concent 32.9 Red Cell Distribution Width 15.9 H Platelet Count 204 # Mean Platelet Volume 10.2 Neutrophils % 75.9 Lymphocytes % 13.0 L Monocytes % 5.3 Eosinophils % 4.9 Basophils % 0.4 Nucleated Red Blood Cells % 0.0 Neutrophils # 6.2 Lymphocytes # 1.1 Monocytes # 0.4 Eosinophils # 0.4 Basophils # 0.0 Nucleated Red Blood Cells # 0.0 Sodium Level 140 Potassium Level 3.8 Chloride Level 99 Carbon Dioxide Level 31 Anion Gap 14 Blood Urea Nitrogen 31 H Creatinine 1.55 H Glucose Level 114 Calcium Level 8.0 L Phosphorus Level 2.4 L Magnesium Level 1.8 Bedside Glucose 86 122 Medications Medications Current Medications Ondansetron HCl (Zofran Inj) 4 mg Q6H PRN IV NAUSEA AND/OR VOMITING; Start 02/14 at 16:00 Pantoprazole (Protonix Iv) 40 mg DAILY@06 IV Last administered on 03/04/17 05: 28; Admin Dose 40 MG; Start 02/15/17 at 06:00 Acetaminophen (Tylenol Supp) 650 mg Q4H PRN [place] TEMP > 37C; Start 02/14/17 at 18: 00 Acetaminophen (Tylenol Liquid) 650 mg Q4H PRN PO TEMP > 37C Last administered on 03/04/17 05:27; Admin Dose 650 MG; Start 02/14/17 at 18:00 Eye Lubricant (Akwa Oint) 1 applic Q6 BOTH EYES Last administered on 03/04/17 11:50; Admin Dose 1 APPLIC; Start 02/14/17 at 18:00 Eye Lubricant 2 drop 2 drop Q6 BOTH EYES Last administered on 03/04/17 11:50; Admin Dose 2 DROP; Start 02/14/17 at 18:00 Norepinephrine 16 mg/Dextrose 500 ml @ 0 mls/hr TITRATE IV Last administered on 03/04/17 07:55; Admin Dose 5.62 MLS/HR; Start 02/14/17 at 22:00 Phenylephrine HCl/ Dextrose (Fritz-Syneph/D5W) 500 ml @ 75 mls/hr TITRATE IV ; Start 02/16/17 at 03:30 Miscellaneous Information 1 ea NOTE XX ; Start 02/16/17 at 11:30 Glucose (Glutose) 15 gm Q15M PRN PO DECREASED GLUCOSE; Start 02/16/17 at 11:30 Glucose (Glutose) 22.5 gm Q15M PRN PO DECREASED GLUCOSE; Start 02/16/17 at 11:30 Dextrose (D50w Syringe) 25 ml Q15M PRN IV DECREASED GLUCOSE; Start 02/16/17 at 11:30 Dextrose (D50w Syringe) 50 ml Q15M PRN IV DECREASED GLUCOSE; Start 02/16/17 at 11:30 Glucagon (Glucagen) 1 mg Q15M PRN IM DECREASED GLUCOSE; Start 02/16/17 at 11:30 Glucose 15 gm 15 gm Q15M PRN BUCCAL DECREASED GLUCOSE; Start 02/16/17 at 11:30 Vasopressin/ Dextrose (Vasostrict/D5W) 60 ml @ 1.8 mls/hr Q12H IV ; Start at 13:00 Aspirin (Aspirin) 81 mg DAILY GTB Last administered on 03/04/17 08:41; Admin Dose 81 MG; Start 02/18/17 at 09:00 Atorvastatin Calcium (Lipitor) 20 mg HS NGT Last administered on 03/03/17 20: 35; Admin Dose 20 MG; Start 02/17/17 at 21:00 Insulin Aspart (Novolog Insulin Pen) NOVOLOG *MILD* ALGORI... Q6 SC Last administered on 02/20/17 17:54; Admin Dose 1 UNIT; Start 02/20/17 at 00:00 IV Flush (NS 10 ml) 10 ml PRN PRN IV IV PROTOCOL; Start 02/20/17 at 16:00 Lorazepam (Ativan) 1 mg Q6H PRN IV AGITATION/ANXIETY Last administered on 10:12; Admin Dose 1 MG; Start 02/20/17 at 21:40 Morphine Sulfate 4 mg 4 mg Q2 PRN IV Severe Pain Last administered on 16:03; Admin Dose 4 MG; Start 02/26/17 at 21:30 Cefepime HCl 50 ml @ 100 mls/hr Q12 IVPB Last administered on 03/04/17 08:41 ; Admin Dose 100 MLS/HR; Start 03/02/17 at 11:00 Propofol (Diprivan) 100 ml @ 2.46 mls/hr Q12H IV Last administered on 07:52; Admin Dose 9.84 MLS/HR; Start 03/02/17 at 12:00 Ferrous Sulfate 300 mg 300 mg BID NGT Last administered on 03/04/17 08:41; Admin Dose 300 MG; Start 03/03/17 at 21:00 Potassium Phosphate 20 meq/ Sodium Chloride 254.5455 ml @ 63.636 m... ONCE ONCE IVPB Last administered on 03/04/17 10:25; Admin Dose 63.636 MLS/HR; Start 03/04/17 at 09:30; Stop 03/04/17 at 13:29 Vancomycin HCl (Vancocin) 250 ml @ 125 mls/hr Q36H IVPB ; Start 03/05/17 at 14: 00 Casey Schuler DO Mar 04, 2017 12:35
[2017-03-04 13:10] LABS: INR 1.19; PROTIME 15.2 Sec (12.2-14.2); PT RATIO 1.2
[2017-03-04 13:11] LABS: PARTIAL THROMBOPLASTIN TIME 35.4 Sec (25.0-35.0); THROMBIN TIME 14.4 SEC (13.8-19.1)
--- NOTE | 2017-03-04 15:13 | CONS ---
Date/Time of Note Date/Time of Note DATE: 03/04/17 TIME: 15:11 Assessment/Plan Assessment/Plan Additional Assessment/Plan Agree with trach at this time as patient is not improving and required reintubatin. Spoke with Dr Hartman referred to [facility] for code change. Consultation Date/Type/Reason Admit Date/Time Feb 14, 2017 at 16:02 Type of Consultation: pallative Exam/Review of Systems Vital Signs Vitals Vital Signs Date Time Temp Pulse Resp B/P Pulse Ox O2 Delivery O2 Flow Rate FiO2 03/04/17 14:00 59 26 106/64 100 Mechanical Ventilator 03/04/17 11:20 40 03/04/17 11:00 99.6 Intake and Output 03/03/17 03/03/17 03/04/17 15:00 23:00 07:00 Intake Total 1256.322 ml 1169.906 ml 1511.14 ml Output Total 395 ml 2243 ml 1829 ml Balance 861.322 ml -1073.094 ml -317.86 ml Exam Respiratory: congested cough, crackles/rales, diminished breath sounds Cardiovascular: nl pulses, regular rate and rhythm Neurological: confused, focal weakness, lethargic Results Result Diagram: 03/04/17 1140 03/04/17 0500 Results 24 hrs Laboratory Tests Test 03/03/17 18:27 03/04/17 00:54 03/04/17 02:20 03/04/17 05:00 Bedside Glucose 107 101 Vancomycin Level Trough 17.5 White Blood Count 8.2 Red Blood Count 2.61 L Hemoglobin 8.4 L Hematocrit 25.5 L Mean Corpuscular Volume 97.7 Mean Corpuscular Hemoglobin 32.2 Mean Corpuscular Hemoglobin Concent 32.9 Red Cell Distribution Width 15.9 H Platelet Count 204 # Mean Platelet Volume 10.2 Neutrophils % 75.9 Lymphocytes % 13.0 L Monocytes % 5.3 Eosinophils % 4.9 Basophils % 0.4 Nucleated Red Blood Cells % 0.0 Neutrophils # 6.2 Lymphocytes # 1.1 Monocytes # 0.4 Eosinophils # 0.4 Basophils # 0.0 Nucleated Red Blood Cells # 0.0 Sodium Level 140 Potassium Level 3.8 Chloride Level 99 Carbon Dioxide Level 31 Anion Gap 14 Blood Urea Nitrogen 31 H Creatinine 1.55 H Glucose Level 114 Calcium Level 8.0 L Phosphorus Level 2.4 L Magnesium Level 1.8 Test 03/04/17 05:40 03/04/17 11:40 03/04/17 11:49 Bedside Glucose 86 122 Platelet Count 199 Prothrombin Time 15.2 H Prothrombin Time Ratio 1.2 INR International Normalized Ratio 1.19 Activated Partial Thromboplast Time 35.4 H Thrombin Time 14.4 Medications Medications Current Medications Ondansetron HCl (Zofran Inj) 4 mg Q6H PRN IV NAUSEA AND/OR VOMITING; Start 02/14 at 16:00 Pantoprazole (Protonix Iv) 40 mg DAILY@06 IV Last administered on 03/04/17 05: 28; Admin Dose 40 MG; Start 02/15/17 at 06:00 Acetaminophen (Tylenol Supp) 650 mg Q4H PRN [place] TEMP > 37C; Start 02/14/17 at 18: 00 Acetaminophen (Tylenol Liquid) 650 mg Q4H PRN PO TEMP > 37C Last administered on 03/04/17 05:27; Admin Dose 650 MG; Start 02/14/17 at 18:00 Eye Lubricant (Akwa Oint) 1 applic Q6 BOTH EYES Last administered on 03/04/17 11:50; Admin Dose 1 APPLIC; Start 02/14/17 at 18:00 Eye Lubricant 2 drop 2 drop Q6 BOTH EYES Last administered on 03/04/17 11:50; Admin Dose 2 DROP; Start 02/14/17 at 18:00 Norepinephrine 16 mg/Dextrose 500 ml @ 0 mls/hr TITRATE IV Last administered on 03/04/17 07:55; Admin Dose 5.62 MLS/HR; Start 02/14/17 at 22:00 Phenylephrine HCl/ Dextrose (Fritz-Syneph/D5W) 500 ml @ 75 mls/hr TITRATE IV ; Start 02/16/17 at 03:30 Miscellaneous Information 1 ea NOTE XX ; Start 02/16/17 at 11:30 Glucose (Glutose) 15 gm Q15M PRN PO DECREASED GLUCOSE; Start 02/16/17 at 11:30 Glucose (Glutose) 22.5 gm Q15M PRN PO DECREASED GLUCOSE; Start 02/16/17 at 11:30 Dextrose (D50w Syringe) 25 ml Q15M PRN IV DECREASED GLUCOSE; Start 02/16/17 at 11:30 Dextrose (D50w Syringe) 50 ml Q15M PRN IV DECREASED GLUCOSE; Start 02/16/17 at 11:30 Glucagon (Glucagen) 1 mg Q15M PRN IM DECREASED GLUCOSE; Start 02/16/17 at 11:30 Glucose 15 gm 15 gm Q15M PRN BUCCAL DECREASED GLUCOSE; Start 02/16/17 at 11:30 Vasopressin/ Dextrose (Vasostrict/D5W) 60 ml @ 1.8 mls/hr Q12H IV ; Start at 13:00 Aspirin (Aspirin) 81 mg DAILY GTB Last administered on 03/04/17 08:41; Admin Dose 81 MG; Start 02/18/17 at 09:00 Atorvastatin Calcium (Lipitor) 20 mg HS NGT Last administered on 03/03/17 20: 35; Admin Dose 20 MG; Start 02/17/17 at 21:00 Insulin Aspart (Novolog Insulin Pen) NOVOLOG *MILD* ALGORI... Q6 SC Last administered on 02/20/17 17:54; Admin Dose 1 UNIT; Start 02/20/17 at 00:00 IV Flush (NS 10 ml) 10 ml PRN PRN IV IV PROTOCOL; Start 02/20/17 at 16:00 Lorazepam (Ativan) 1 mg Q6H PRN IV AGITATION/ANXIETY Last administered on 10:12; Admin Dose 1 MG; Start 02/20/17 at 21:40 Morphine Sulfate 4 mg 4 mg Q2 PRN IV Severe Pain Last administered on 16:03; Admin Dose 4 MG; Start 02/26/17 at 21:30 Cefepime HCl 50 ml @ 100 mls/hr Q12 IVPB Last administered on 03/04/17 08:41 ; Admin Dose 100 MLS/HR; Start 03/02/17 at 11:00 Propofol (Diprivan) 100 ml @ 2.46 mls/hr Q12H IV Last administered on 07:52; Admin Dose 9.84 MLS/HR; Start 03/02/17 at 12:00 Ferrous Sulfate 300 mg 300 mg BID NGT Last administered on 03/04/17 08:41; Admin Dose 300 MG; Start 03/03/17 at 21:00 Vancomycin HCl (Vancocin) 250 ml @ 125 mls/hr Q36H IVPB ; Start 03/05/17 at 14: 00 SPARKLE RAE Mar 04, 2017 15:13
--- NOTE | 2017-03-04 20:09 | CONS ---
Date/Time of Note Date/Time of Note DATE: 03/04/17 TIME: 20:06 Assessment/Plan Assessment/Plan Additional Assessment/Plan Respiratory failure Plan for tracheostomy when consent is available Consultation Date/Type/Reason Admit Date/Time Feb 14, 2017 at 16:02 Date of Consultation: Mar 04, 2017 Reason for Consultation Evaluation for tracheostomy Hx of Present Illness This is a 76-year-old female with a past history of back pain hypertension dyslipidemia patient had a history of PEA had ventricular fibrillation and ACLS was performed currently unable to come off the ventilator secondary to multiple medical problems Constitutional: disoriented ENT: no complaints Respiratory: no complaints Cardiovascular: no complaints Gastrointestinal: no complaints Genitourinary: no complaints Musculoskeletal: bone/joint pain (Right hip) Skin: no complaints Psychological: confusion Past Surgical History Past Surgical Hx: no surgical history Social History Smoking Status: Unknown if ever smoked Exam/Review of Systems Vital Signs Vitals Vital Signs Date Time Temp Pulse Resp B/P Pulse Ox O2 Delivery O2 Flow Rate FiO2 03/04/17 19:27 57 26 100 40 03/04/17 18:00 105/59 Mechanical Ventilator 03/04/17 16:00 99.1 Intake and Output 03/03/17 03/03/17 03/04/17 15:00 23:00 07:00 Intake Total 1256.322 ml 1169.906 ml 1511.14 ml Output Total 395 ml 2243 ml 1829 ml Balance 861.322 ml -1073.094 ml -317.86 ml Exam Eyes: EOMI, PERRL, nl conjunctiva, nl lids, nl sclera ENMT: nl external ears & nose, nl lips & teeth, nl nasal mucosa & septum Neck: non-tender, supple Respiratory: clear to auscultation, normal air movement Cardiovascular: nl pulses, regular rate and rhythm Gastrointestinal: nl liver, spleen, non-tender, soft Results Result Diagram: 03/04/17 1140 03/04/17 0500 Results 24 hrs Laboratory Tests Test 03/04/17 00:54 03/04/17 02:20 03/04/17 05:00 03/04/17 05:40 Vancomycin Level Trough 17.5 Bedside Glucose 101 86 White Blood Count 8.2 Red Blood Count 2.61 L Hemoglobin 8.4 L Hematocrit 25.5 L Mean Corpuscular Volume 97.7 Mean Corpuscular Hemoglobin 32.2 Mean Corpuscular Hemoglobin Concent 32.9 Red Cell Distribution Width 15.9 H Platelet Count 204 # Mean Platelet Volume 10.2 Neutrophils % 75.9 Lymphocytes % 13.0 L Monocytes % 5.3 Eosinophils % 4.9 Basophils % 0.4 Nucleated Red Blood Cells % 0.0 Neutrophils # 6.2 Lymphocytes # 1.1 Monocytes # 0.4 Eosinophils # 0.4 Basophils # 0.0 Nucleated Red Blood Cells # 0.0 Sodium Level 140 Potassium Level 3.8 Chloride Level 99 Carbon Dioxide Level 31 Anion Gap 14 Blood Urea Nitrogen 31 H Creatinine 1.55 H Glucose Level 114 Calcium Level 8.0 L Phosphorus Level 2.4 L Magnesium Level 1.8 Test 03/04/17 11:40 03/04/17 11:49 03/04/17 17:47 Platelet Count 199 Prothrombin Time 15.2 H Prothrombin Time Ratio 1.2 INR International Normalized Ratio 1.19 Activated Partial Thromboplast Time 35.4 H Thrombin Time 14.4 Bedside Glucose 122 86 Medications Medications Current Medications Ondansetron HCl (Zofran Inj) 4 mg Q6H PRN IV NAUSEA AND/OR VOMITING; Start 02/14 at 16:00 Pantoprazole (Protonix Iv) 40 mg DAILY@06 IV Last administered on 03/04/17 05: 28; Admin Dose 40 MG; Start 02/15/17 at 06:00 Acetaminophen (Tylenol Supp) 650 mg Q4H PRN [place] TEMP > 37C; Start 02/14/17 at 18: 00 Acetaminophen (Tylenol Liquid) 650 mg Q4H PRN PO TEMP > 37C Last administered on 03/04/17 05:27; Admin Dose 650 MG; Start 02/14/17 at 18:00 Eye Lubricant (Akwa Oint) 1 applic Q6 BOTH EYES Last administered on 03/04/17 17:49; Admin Dose 1 APPLIC; Start 02/14/17 at 18:00 Eye Lubricant 2 drop 2 drop Q6 BOTH EYES Last administered on 03/04/17 17:48; Admin Dose 2 DROP; Start 02/14/17 at 18:00 Norepinephrine 16 mg/Dextrose 500 ml @ 0 mls/hr TITRATE IV Last administered on 03/04/17 07:55; Admin Dose 5.62 MLS/HR; Start 02/14/17 at 22:00 Phenylephrine HCl/ Dextrose (Fritz-Syneph/D5W) 500 ml @ 75 mls/hr TITRATE IV ; Start 02/16/17 at 03:30 Miscellaneous Information 1 ea NOTE XX ; Start 02/16/17 at 11:30 Glucose (Glutose) 15 gm Q15M PRN PO DECREASED GLUCOSE; Start 02/16/17 at 11:30 Glucose (Glutose) 22.5 gm Q15M PRN PO DECREASED GLUCOSE; Start 02/16/17 at 11:30 Dextrose (D50w Syringe) 25 ml Q15M PRN IV DECREASED GLUCOSE; Start 02/16/17 at 11:30 Dextrose (D50w Syringe) 50 ml Q15M PRN IV DECREASED GLUCOSE; Start 02/16/17 at 11:30 Glucagon (Glucagen) 1 mg Q15M PRN IM DECREASED GLUCOSE; Start 02/16/17 at 11:30 Glucose 15 gm 15 gm Q15M PRN BUCCAL DECREASED GLUCOSE; Start 02/16/17 at 11:30 Vasopressin/ Dextrose (Vasostrict/D5W) 60 ml @ 1.8 mls/hr Q12H IV ; Start at 13:00 Aspirin (Aspirin) 81 mg DAILY GTB Last administered on 03/04/17 08:41; Admin Dose 81 MG; Start 02/18/17 at 09:00 Atorvastatin Calcium (Lipitor) 20 mg HS NGT Last administered on 03/03/17 20: 35; Admin Dose 20 MG; Start 02/17/17 at 21:00 Insulin Aspart (Novolog Insulin Pen) NOVOLOG *MILD* ALGORI... Q6 SC Last administered on 02/20/17 17:54; Admin Dose 1 UNIT; Start 02/20/17 at 00:00 IV Flush (NS 10 ml) 10 ml PRN PRN IV IV PROTOCOL; Start 02/20/17 at 16:00 Lorazepam (Ativan) 1 mg Q6H PRN IV AGITATION/ANXIETY Last administered on 10:12; Admin Dose 1 MG; Start 02/20/17 at 21:40 Morphine Sulfate 4 mg 4 mg Q2 PRN IV Severe Pain Last administered on 16:03; Admin Dose 4 MG; Start 02/26/17 at 21:30 Cefepime HCl 50 ml @ 100 mls/hr Q12 IVPB Last administered on 03/04/17 08:41 ; Admin Dose 100 MLS/HR; Start 03/02/17 at 11:00 Propofol (Diprivan) 100 ml @ 2.46 mls/hr Q12H IV Last administered on 07:52; Admin Dose 9.84 MLS/HR; Start 03/02/17 at 12:00 Ferrous Sulfate 300 mg 300 mg BID NGT Last administered on 03/04/17 08:41; Admin Dose 300 MG; Start 03/03/17 at 21:00 Vancomycin HCl (Vancocin) 250 ml @ 125 mls/hr Q36H IVPB ; Start 03/05/17 at 14: 00 GUANAKITO THURMAN MD Mar 04, 2017 20:09
[2017-03-04] MEDS: ATORVASTATIN 20 MG TAB NGT SCH (20:52)
[2017-03-05] VITALS (87 sets, daily range): BP systolic 74–120; BP diastolic 55–86; PULSE 63–93; RESP 0–37
[2017-03-05] MEDS: OCULAR LUBRICANT 3.5 GM OPH OINT BOTH EYES SCH ×4 (00:19→17:26)
[2017-03-05] MEDS: ARTIFICIAL TEARS 15 ML OPH BOTH EYES SCH ×4 (00:19→17:26)
[2017-03-05] MEDS: VASOPRESSIN 60 UNIT in DEXTROSE 5% 57 ML IV SCH ×2 (00:33→11:36)
[2017-03-05 05:23] LABS: BASOPHIL # 0.1 10^3/ul (0.0-0.1); BASOPHILS % 0.6 % (0.0-2.0); EOSINOPHILS # 0.5 10^3/ul (0.0-0.5); EOSINOPHILS % 5.6 % (0.0-7.0); HEMATOCRIT 29.6 % (42.0-52.0); HEMOGLOBIN 9.7 g/dl (14.0-18.0); LYMPHOCYTES # 1.1 10^3/ul (0.8-2.9); LYMPHOCYTES % 12.7 % (15.0-51.0); MEAN CORPUSCULAR HEMOGLOBIN 31.7 pg (29.0-33.0); MEAN CORPUSCULAR HGB CONC 32.8 g/dl (32.0-37.0); MEAN CORPUSCULAR VOLUME 96.7 fl (82.0-101.0); MEAN PLATELET VOLUME 10.4 fl (7.4-10.4); MONOCYTE # 0.6 10^3/ul (0.3-0.9); MONOCYTES % 7.6 % (0.0-11.0); NEUTROPHIL # 6.1 10^3/ul (1.6-7.5); NEUTROPHILS % 72.9 % (39.0-77.0); PLATELET COUNT 220 10^3/UL (140-415); RED BLOOD COUNT 3.06 10^6/ul (4.70-6.10); RED CELL DISTRIBUTION WIDTH 15.6 % (11.5-14.5); WHITE BLOOD COUNT 8.4 10^3/ul (4.8-10.8)
[2017-03-05 05:47] LABS: CALCIUM 8.2 mg/dl (8.4-10.2); CREATININE 1.63 mg/dl (0.61-1.24); POTASSIUM 3.5 mmol/L (3.5-5.1)
[2017-03-05 05:55] LABS: MAGNESIUM 1.8 mg/dl (1.7-2.5); PHOSPHORUS 3.7 mg/dl (2.5-4.9)
[2017-03-05] MEDS: INSULIN ASPART [NOVOLOG] 3 ML PEN SC SCH ×5 (06:00→18:00)
[2017-03-05] MEDS: PANTOPRAZOLE 40 MG INJ IV SCH (06:19)
[2017-03-05] MEDS: FUROSEMIDE 40 MG INJ IV SCH (06:20)
--- NOTE | 2017-03-05 07:21 | PN ---
Date/Time of Note Date/Time of Note DATE: 03/05/17 TIME: 07:18 Assessment/Plan VTE Prophylaxis VTE Prophylaxis Intervention: SCD's Lines/Catheters IV [facility]ter Type (from [facility]): PICC Line Central line still needed: Yes Urinary Cath still in place: Yes Reason Cath still needed: other (indicate) Assessment/Plan Chief Complaint/Hosp Course 1. Status post cardiac arrest secondary to ventricular fibrillation. Status post CPR and ACLS protocol with return of spontaneous circulation. Status post hypothermia protocol. Echocardiogram showing severe left ventricular systolic dysfunction. 2. Ventilator dependent respiratory failure secondary to cardiac arrest. The patient was extubated and reintubated on 03/02/2017 because of worsening respiratory distress. 3. Left-sided rib fractures and barotrauma with resultant pneumothorax secondary to repeated chest compressions. Status post chest tube placement. 4. Sepsis with multifocal pneumonia and coagulase-negative Staphylococcus bacteremia. Continue antibiotics. 5. Acute on chronic kidney disease. The patient being followed by nephrology. 6. Septic shock. The patient on pressors. 7. Ischemic cardiomyopathy with ejection fraction of 20%. Cardiology following. 8. Normocytic, normochromic anemia. Underlying iron deficiency. Continue iron supplements. 9. Fluids, electrolytes, and nutrition. IV fluids as per nephrology. Tube feedings. 10. DVT prophylaxis. Bilateral sequential compression devices. 11. Gastrointestinal prophylaxis. Proton pump inhibitors. 12. Plan. Plan for trach and PEG. Case discussed with Dr. Laughlin. Critical care time: 35 minutes. Problems: Subjective 24 Hr Interval Summary Free Text/Dictation No changes in status. Remains on pressors. Exam/Review of Systems Vital Signs Vitals Vital Signs Date Time Temp Pulse Resp B/P Pulse Ox O2 Delivery O2 Flow Rate FiO2 03/05/17 06:30 93 26 91/67 100 03/05/17 06:00 Mechanical Ventilator 03/05/17 05:04 40 03/05/17 04:00 98.0 Intake and Output 03/04/17 03/04/17 03/05/17 15:00 23:00 07:00 Intake Total 708.68 ml 763.92 ml 858.504 ml Output Total 1675 ml 2176 ml 547 ml Balance -966.32 ml -1412.08 ml 311.504 ml Exam General: Adequately build 76 year-old male lying in bed in no apparent distress. HEENT: Normocephalic, atraumatic. Eyes: Anicteric sclerae, conjunctivae clear. ENT: Nasal septum midline, oral mucosa moist. Neck supple, no JVD noticed. Respiratory: Bilaterally finished breath sounds. No use of accessory muscles of respiration. ETT connected to mechanical ventilator. Chest tube to Pleur-evac. Cardiovascular: S1, S2 heard. No murmurs or gallops. Abdomen: Soft, nontender, and nondistended. Bowel sounds positive in all 4 quadrants. Genitourinary: Patel catheter in place. Extremities: No cyanosis, no clubbing, no edema. Peripheral pulses palpable. Neurologic: The patient is awake, alert. Follows commands. Skin: Normal skin turgor. No skin rashes. Results Result Diagram: 03/05/17 0430 03/05/17 0430 Results 24 hrs Laboratory Tests Test 03/04/17 11:40 03/04/17 11:49 03/04/17 17:47 03/05/17 00:22 Platelet Count 199 Prothrombin Time 15.2 H Prothrombin Time Ratio 1.2 INR International Normalized Ratio 1.19 Activated Partial Thromboplast Time 35.4 H Thrombin Time 14.4 Bedside Glucose 122 86 119 Test 03/05/17 04:30 03/05/17 06:19 White Blood Count 8.4 Red Blood Count 3.06 L Hemoglobin 9.7 L Hematocrit 29.6 L Mean Corpuscular Volume 96.7 Mean Corpuscular Hemoglobin 31.7 Mean Corpuscular Hemoglobin Concent 32.8 Red Cell Distribution Width 15.6 H Platelet Count 220 Mean Platelet Volume 10.4 Neutrophils % 72.9 Lymphocytes % 12.7 L Monocytes % 7.6 Eosinophils % 5.6 Basophils % 0.6 Nucleated Red Blood Cells % 0.0 Neutrophils # 6.1 Lymphocytes # 1.1 Monocytes # 0.6 Eosinophils # 0.5 Basophils # 0.1 Nucleated Red Blood Cells # 0.0 Sodium Level 140 Potassium Level 3.5 Chloride Level 95 L Carbon Dioxide Level 34 H Anion Gap 15 Blood Urea Nitrogen 34 H Creatinine 1.63 H Glucose Level 122 Calcium Level 8.2 L Phosphorus Level 3.7 Magnesium Level 1.8 Bedside Glucose 122 Medications Medications Current Medications Ondansetron HCl (Zofran Inj) 4 mg Q6H PRN IV NAUSEA AND/OR VOMITING; Start 02/14 at 16:00 Pantoprazole (Protonix Iv) 40 mg DAILY@06 IV Last administered on 03/05/17 06: 19; Admin Dose 40 MG; Start 02/15/17 at 06:00 Acetaminophen (Tylenol Supp) 650 mg Q4H PRN [place] TEMP > 37C; Start 02/14/17 at 18: 00 Acetaminophen (Tylenol Liquid) 650 mg Q4H PRN PO TEMP > 37C Last administered on 03/04/17 05:27; Admin Dose 650 MG; Start 02/14/17 at 18:00 Eye Lubricant (Akwa Oint) 1 applic Q6 BOTH EYES Last administered on 03/05/17 06:20; Admin Dose 1 APPLIC; Start 02/14/17 at 18:00 Eye Lubricant 2 drop 2 drop Q6 BOTH EYES Last administered on 03/05/17 06:20; Admin Dose 2 DROP; Start 02/14/17 at 18:00 Norepinephrine 16 mg/Dextrose 500 ml @ 0 mls/hr TITRATE IV Last administered on 03/04/17 07:55; Admin Dose 5.62 MLS/HR; Start 02/14/17 at 22:00 Phenylephrine HCl/ Dextrose (Fritz-Syneph/D5W) 500 ml @ 75 mls/hr TITRATE IV ; Start 02/16/17 at 03:30 Miscellaneous Information 1 ea NOTE XX ; Start 02/16/17 at 11:30 Glucose (Glutose) 15 gm Q15M PRN PO DECREASED GLUCOSE; Start 02/16/17 at 11:30 Glucose (Glutose) 22.5 gm Q15M PRN PO DECREASED GLUCOSE; Start 02/16/17 at 11:30 Dextrose (D50w Syringe) 25 ml Q15M PRN IV DECREASED GLUCOSE; Start 02/16/17 at 11:30 Dextrose (D50w Syringe) 50 ml Q15M PRN IV DECREASED GLUCOSE; Start 02/16/17 at 11:30 Glucagon (Glucagen) 1 mg Q15M PRN IM DECREASED GLUCOSE; Start 02/16/17 at 11:30 Glucose 15 gm 15 gm Q15M PRN BUCCAL DECREASED GLUCOSE; Start 02/16/17 at 11:30 Vasopressin/ Dextrose (Vasostrict/D5W) 60 ml @ 1.8 mls/hr Q12H IV ; Start at 13:00 Aspirin (Aspirin) 81 mg DAILY GTB Last administered on 03/04/17 08:41; Admin Dose 81 MG; Start 02/18/17 at 09:00 Atorvastatin Calcium (Lipitor) 20 mg HS NGT Last administered on 03/04/17 20: 52; Admin Dose 20 MG; Start 02/17/17 at 21:00 Insulin Aspart (Novolog Insulin Pen) NOVOLOG *MILD* ALGORI... Q6 SC Last administered on 02/20/17 17:54; Admin Dose 1 UNIT; Start 02/20/17 at 00:00 IV Flush (NS 10 ml) 10 ml PRN PRN IV IV PROTOCOL; Start 02/20/17 at 16:00 Lorazepam (Ativan) 1 mg Q6H PRN IV AGITATION/ANXIETY Last administered on 10:12; Admin Dose 1 MG; Start 02/20/17 at 21:40 Morphine Sulfate 4 mg 4 mg Q2 PRN IV Severe Pain Last administered on 16:03; Admin Dose 4 MG; Start 02/26/17 at 21:30 Cefepime HCl 50 ml @ 100 mls/hr Q12 IVPB Last administered on 03/04/17 20:52 ; Admin Dose 100 MLS/HR; Start 03/02/17 at 11:00 Propofol (Diprivan) 100 ml @ 2.46 mls/hr Q12H IV Last administered on 21:07; Admin Dose 7.872 MLS/HR; Start 03/02/17 at 12:00 Ferrous Sulfate 300 mg 300 mg BID NGT Last administered on 03/04/17 20:52; Admin Dose 300 MG; Start 03/03/17 at 21:00 Vancomycin HCl (Vancocin) 250 ml @ 125 mls/hr Q36H IVPB ; Start 03/05/17 at 14: 00 MADDIE ASHFORD NP Mar 05, 2017 07:21
--- NOTE | 2017-03-05 08:12 | PN ---
Date/Time of Note Date/Time of Note DATE: 03/05/17 TIME: 08:10 Assessment/Plan Lines/Catheters IV Catheter Type (from [facility]): PICC Line Urinary Cath still in place: Yes Assessment/Plan Chief Complaint/Hosp Course 1. Nonoliguric acute kidney injury with previous baseline creatinine 0.8 mg/dL. -Etiology of CROW secondary to ATN due to ischemic hypoperfusion shock. -Urinalysis was reviewed evidence of proteinuria no evidence of active sediment -Renal function has been fluctuating but overall stable, likely due to diuretic therapy Hold Lasix in the setting of shock -Continue supportive care, renally dose all meds, avoid nephrotoxic Anemia. -Monitor H&H levels Mineral bone disorder -Monitor calcium phosphorus levels Replete phosphorus as needed Hypokalemia Improved continue to monitor Hypernatremia Improved Increase free water flushes 200 every 4 hours Monitor serial sodium levels Volume overload -Improving -Hold Lasix Cardiac arrest. Patient status post hypothermia protocol -Follow-up with cardiology Ventilator dependent respiratory failure - ABGs reviewed, chest x-ray reviewed -Follow-up with pulmonary Pneumothorax -Status post chest tube placement, continue to monitor Septic shock -Cultures positive for bacteremia -Continue antibiotic regimen Wean off pressors -Follow-up with ID -Monitor closely Problems: Subjective 24 Hr Interval Summary Free Text/Dictation Patient seen and examined Remains critically on pressor support No other events noted Exam/Review of Systems Vital Signs Vitals Vital Signs Date Time Temp Pulse Resp B/P Pulse Ox O2 Delivery O2 Flow Rate FiO2 03/05/17 06:30 93 26 91/67 100 03/05/17 06:00 Mechanical Ventilator 03/05/17 05:04 40 03/05/17 04:00 98.0 Intake and Output 03/04/17 03/04/17 03/05/17 15:00 23:00 07:00 Intake Total 708.68 ml 763.92 ml 858.504 ml Output Total 1675 ml 2176 ml 547 ml Balance -966.32 ml -1412.08 ml 311.504 ml Exam HEENT: Head is normocephalic, NECK: Supple. HEART: Irregular LUNGS: Show diminished breath sounds at base. ABDOMEN: Soft, nontender to palpation without rebound or guarding. EXTREMITIES: Negative for clubbing, cyanosis. DERMATOLOGIC: No rashes. MUSCULOSKELETAL: No joint effusions, NEUROLOGIC: No change in exam. Results Result Diagram: 03/05/17 0430 03/05/17 0430 Results 24 hrs Laboratory Tests Test 03/04/17 11:40 03/04/17 11:49 03/04/17 17:47 03/05/17 00:22 Platelet Count 199 Prothrombin Time 15.2 H Prothrombin Time Ratio 1.2 INR International Normalized Ratio 1.19 Activated Partial Thromboplast Time 35.4 H Thrombin Time 14.4 Bedside Glucose 122 86 119 Test 03/05/17 04:30 03/05/17 06:19 White Blood Count 8.4 Red Blood Count 3.06 L Hemoglobin 9.7 L Hematocrit 29.6 L Mean Corpuscular Volume 96.7 Mean Corpuscular Hemoglobin 31.7 Mean Corpuscular Hemoglobin Concent 32.8 Red Cell Distribution Width 15.6 H Platelet Count 220 Mean Platelet Volume 10.4 Neutrophils % 72.9 Lymphocytes % 12.7 L Monocytes % 7.6 Eosinophils % 5.6 Basophils % 0.6 Nucleated Red Blood Cells % 0.0 Neutrophils # 6.1 Lymphocytes # 1.1 Monocytes # 0.6 Eosinophils # 0.5 Basophils # 0.1 Nucleated Red Blood Cells # 0.0 Sodium Level 140 Potassium Level 3.5 Chloride Level 95 L Carbon Dioxide Level 34 H Anion Gap 15 Blood Urea Nitrogen 34 H Creatinine 1.63 H Glucose Level 122 Calcium Level 8.2 L Phosphorus Level 3.7 Magnesium Level 1.8 Bedside Glucose 122 Medications Medications Current Medications Ondansetron HCl (Zofran Inj) 4 mg Q6H PRN IV NAUSEA AND/OR VOMITING; Start 02/14 at 16:00 Pantoprazole (Protonix Iv) 40 mg DAILY@06 IV Last administered on 03/05/17 06: 19; Admin Dose 40 MG; Start 02/15/17 at 06:00 Acetaminophen (Tylenol Supp) 650 mg Q4H PRN [place] TEMP > 37C; Start 02/14/17 at 18: 00 Acetaminophen (Tylenol Liquid) 650 mg Q4H PRN PO TEMP > 37C Last administered on 03/04/17 05:27; Admin Dose 650 MG; Start 02/14/17 at 18:00 Eye Lubricant (Akwa Oint) 1 applic Q6 BOTH EYES Last administered on 03/05/17 06:20; Admin Dose 1 APPLIC; Start 02/14/17 at 18:00 Eye Lubricant 2 drop 2 drop Q6 BOTH EYES Last administered on 03/05/17 06:20; Admin Dose 2 DROP; Start 02/14/17 at 18:00 Norepinephrine 16 mg/Dextrose 500 ml @ 0 mls/hr TITRATE IV Last administered on 03/04/17 07:55; Admin Dose 5.62 MLS/HR; Start 02/14/17 at 22:00 Phenylephrine HCl/ Dextrose (Fritz-Syneph/D5W) 500 ml @ 75 mls/hr TITRATE IV ; Start 02/16/17 at 03:30 Miscellaneous Information 1 ea NOTE XX ; Start 02/16/17 at 11:30 Glucose (Glutose) 15 gm Q15M PRN PO DECREASED GLUCOSE; Start 02/16/17 at 11:30 Glucose (Glutose) 22.5 gm Q15M PRN PO DECREASED GLUCOSE; Start 02/16/17 at 11:30 Dextrose (D50w Syringe) 25 ml Q15M PRN IV DECREASED GLUCOSE; Start 02/16/17 at 11:30 Dextrose (D50w Syringe) 50 ml Q15M PRN IV DECREASED GLUCOSE; Start 02/16/17 at 11:30 Glucagon (Glucagen) 1 mg Q15M PRN IM DECREASED GLUCOSE; Start 02/16/17 at 11:30 Glucose 15 gm 15 gm Q15M PRN BUCCAL DECREASED GLUCOSE; Start 02/16/17 at 11:30 Vasopressin/ Dextrose (Vasostrict/D5W) 60 ml @ 1.8 mls/hr Q12H IV ; Start at 13:00 Aspirin (Aspirin) 81 mg DAILY GTB Last administered on 03/04/17 08:41; Admin Dose 81 MG; Start 02/18/17 at 09:00 Atorvastatin Calcium (Lipitor) 20 mg HS NGT Last administered on 03/04/17 20: 52; Admin Dose 20 MG; Start 02/17/17 at 21:00 Insulin Aspart (Novolog Insulin Pen) NOVOLOG *MILD* ALGORI... Q6 SC Last administered on 02/20/17 17:54; Admin Dose 1 UNIT; Start 02/20/17 at 00:00 IV Flush (NS 10 ml) 10 ml PRN PRN IV IV PROTOCOL; Start 02/20/17 at 16:00 Lorazepam (Ativan) 1 mg Q6H PRN IV AGITATION/ANXIETY Last administered on 10:12; Admin Dose 1 MG; Start 02/20/17 at 21:40 Morphine Sulfate 4 mg 4 mg Q2 PRN IV Severe Pain Last administered on 16:03; Admin Dose 4 MG; Start 02/26/17 at 21:30 Cefepime HCl 50 ml @ 100 mls/hr Q12 IVPB Last administered on 03/04/17 20:52 ; Admin Dose 100 MLS/HR; Start 03/02/17 at 11:00 Propofol (Diprivan) 100 ml @ 2.46 mls/hr Q12H IV Last administered on 21:07; Admin Dose 7.872 MLS/HR; Start 03/02/17 at 12:00 Ferrous Sulfate 300 mg 300 mg BID NGT Last administered on 03/04/17 20:52; Admin Dose 300 MG; Start 03/03/17 at 21:00 Vancomycin HCl (Vancocin) 250 ml @ 125 mls/hr Q36H IVPB ; Start 03/05/17 at 14: 00 JENSEN OLIVIER DO Mar 05, 2017 08:12
[2017-03-05] MEDS: ASPIRIN 81 MG TAB GTB SCH (10:20)
[2017-03-05] MEDS: FERROUS SULFATE 60 MG/ML 5ML CUP NGT SCH ×2 (10:20→20:02)
[2017-03-05] MEDS: CEFEPIME 1GM/50 ML (PMX) 50 ML IVPB SCH ×2 (10:20→20:02)
[2017-03-05] MEDS: ALBUMIN HUMAN 25% 100 ML IV SCH ×2 (10:20→18:38)
[2017-03-05] MEDS: PROPOFOL 100 ML IV SCH ×2 (10:21→19:58)
--- NOTE | 2017-03-05 10:31 | CONS ---
Date/Time of Note Date/Time of Note DATE: 03/05/17 TIME: 10:30 Consult Date/Type/Reason Admit Date/Time Feb 14, 2017 at 16:02 Type of Consultation: Pulmonary ICU Subjective Patient continues mechanical ventilation continues vasopressor support. Opens eyes but not consistently following commands. Objective Vital Signs Date Time Temp Pulse Resp B/P Pulse Ox O2 Delivery O2 Flow Rate FiO2 03/05/17 10:15 85 26 88/68 98 03/05/17 10:00 Mechanical Ventilator 03/05/17 08:00 98.3 03/05/17 08:00 50 Intake and Output 03/04/17 03/04/17 03/05/17 15:00 23:00 07:00 Intake Total 708.68 ml 763.92 ml 922.936 ml Output Total 1675 ml 2176 ml 597 ml Balance -966.32 ml -1412.08 ml 325.936 ml Exam PHYSICAL EXAMINATION GENERAL: Elderly gentleman, intubated on mechanical ventilation, opens eyes and appears somewhat agitated. Orally intubated. VITAL SIGNS: see below. HEENT: Pupils equal, round, and reactive to light. CARDIAC: S1, S2, 1/6 systolic ejection murmur CHEST: Diminished air entry bilaterally. ABDOMEN: Mildly distended. Bowel sounds present no guarding or rebound EXTREMITIES: No cyanosis, clubbing edema +1 NEUROLOGIC: Generalized weakness Results/Medications Result Diagram: 03/05/17 0430 03/05/17 0430 Results 24 hrs Laboratory Tests Test 03/04/17 11:40 03/04/17 11:49 03/04/17 17:47 03/05/17 00:22 Platelet Count 199 Prothrombin Time 15.2 H Prothrombin Time Ratio 1.2 INR International Normalized Ratio 1.19 Activated Partial Thromboplast Time 35.4 H Thrombin Time 14.4 Bedside Glucose 122 86 119 Test 03/05/17 04:30 03/05/17 06:19 White Blood Count 8.4 Red Blood Count 3.06 L Hemoglobin 9.7 L Hematocrit 29.6 L Mean Corpuscular Volume 96.7 Mean Corpuscular Hemoglobin 31.7 Mean Corpuscular Hemoglobin Concent 32.8 Red Cell Distribution Width 15.6 H Platelet Count 220 Mean Platelet Volume 10.4 Neutrophils % 72.9 Lymphocytes % 12.7 L Monocytes % 7.6 Eosinophils % 5.6 Basophils % 0.6 Nucleated Red Blood Cells % 0.0 Neutrophils # 6.1 Lymphocytes # 1.1 Monocytes # 0.6 Eosinophils # 0.5 Basophils # 0.1 Nucleated Red Blood Cells # 0.0 Sodium Level 140 Potassium Level 3.5 Chloride Level 95 L Carbon Dioxide Level 34 H Anion Gap 15 Blood Urea Nitrogen 34 H Creatinine 1.63 H Glucose Level 122 Calcium Level 8.2 L Phosphorus Level 3.7 Magnesium Level 1.8 Bedside Glucose 122 Medications Current Medications Ondansetron HCl (Zofran Inj) 4 mg Q6H PRN IV NAUSEA AND/OR VOMITING; Start 02/14 at 16:00 Pantoprazole (Protonix Iv) 40 mg DAILY@06 IV Last administered on 03/05/17 06: 19; Admin Dose 40 MG; Start 02/15/17 at 06:00 Acetaminophen (Tylenol Supp) 650 mg Q4H PRN [place] TEMP > 37C; Start 02/14/17 at 18: 00 Acetaminophen (Tylenol Liquid) 650 mg Q4H PRN PO TEMP > 37C Last administered on 03/04/17 05:27; Admin Dose 650 MG; Start 02/14/17 at 18:00 Eye Lubricant (Akwa Oint) 1 applic Q6 BOTH EYES Last administered on 03/05/17 06:20; Admin Dose 1 APPLIC; Start 02/14/17 at 18:00 Eye Lubricant 2 drop 2 drop Q6 BOTH EYES Last administered on 03/05/17 06:20; Admin Dose 2 DROP; Start 02/14/17 at 18:00 Norepinephrine 16 mg/Dextrose 500 ml @ 0 mls/hr TITRATE IV Last administered on 03/04/17 07:55; Admin Dose 5.62 MLS/HR; Start 02/14/17 at 22:00 Phenylephrine HCl/ Dextrose (Fritz-Syneph/D5W) 500 ml @ 75 mls/hr TITRATE IV ; Start 02/16/17 at 03:30 Miscellaneous Information 1 ea NOTE XX ; Start 02/16/17 at 11:30 Glucose (Glutose) 15 gm Q15M PRN PO DECREASED GLUCOSE; Start 02/16/17 at 11:30 Glucose (Glutose) 22.5 gm Q15M PRN PO DECREASED GLUCOSE; Start 02/16/17 at 11:30 Dextrose (D50w Syringe) 25 ml Q15M PRN IV DECREASED GLUCOSE; Start 02/16/17 at 11:30 Dextrose (D50w Syringe) 50 ml Q15M PRN IV DECREASED GLUCOSE; Start 02/16/17 at 11:30 Glucagon (Glucagen) 1 mg Q15M PRN IM DECREASED GLUCOSE; Start 02/16/17 at 11:30 Glucose 15 gm 15 gm Q15M PRN BUCCAL DECREASED GLUCOSE; Start 02/16/17 at 11:30 Vasopressin/ Dextrose (Vasostrict/D5W) 60 ml @ 1.8 mls/hr Q12H IV ; Start at 13:00 Aspirin (Aspirin) 81 mg DAILY GTB Last administered on 03/05/17 10:20; Admin Dose 81 MG; Start 02/18/17 at 09:00 Atorvastatin Calcium (Lipitor) 20 mg HS NGT Last administered on 03/04/17 20: 52; Admin Dose 20 MG; Start 02/17/17 at 21:00 Insulin Aspart (Novolog Insulin Pen) NOVOLOG *MILD* ALGORI... Q6 SC Last administered on 02/20/17 17:54; Admin Dose 1 UNIT; Start 02/20/17 at 00:00 IV Flush (NS 10 ml) 10 ml PRN PRN IV IV PROTOCOL; Start 02/20/17 at 16:00 Lorazepam (Ativan) 1 mg Q6H PRN IV AGITATION/ANXIETY Last administered on 10:12; Admin Dose 1 MG; Start 02/20/17 at 21:40 Morphine Sulfate 4 mg 4 mg Q2 PRN IV Severe Pain Last administered on 16:03; Admin Dose 4 MG; Start 02/26/17 at 21:30 Cefepime HCl 50 ml @ 100 mls/hr Q12 IVPB Last administered on 03/05/17 10:20 ; Admin Dose 100 MLS/HR; Start 03/02/17 at 11:00 Propofol (Diprivan) 100 ml @ 2.46 mls/hr Q12H IV Last administered on 10:21; Admin Dose 7.38 MLS/HR; Start 03/02/17 at 12:00 Ferrous Sulfate 300 mg 300 mg BID NGT Last administered on 7/26/17at 10:20; Admin Dose 300 MG; Start 03/03/17 at 21:00 Vancomycin HCl 250 ml @ 125 mls/hr Q36H IVPB ; Start 03/05/17 at 14:00 Albumin Human (Albumin Human 25%) 100 ml @ 100 mls/hr Q8H IV Last administered on 03/05/17t 10:20; Admin Dose 100 MLS/HR; Start 03/05/17 at 08:30 ; Stop 03/06/17 at 01:29 Assessment/Plan Chief Complaint/Hosp Course IMP: 1. Cardiopulmonary Arrest: query primary cardiac event leading to respiratory failure and multilobar aspiration pneumonia, continues mechanical ventilation. Not able to liberate from mechanical ventilation 2. Respiratory Failure/Vent 3. Multifocal pneumonia--likely aspiration 4. s/p VF 5. ARF 6. Barotrauma--s/p CPR 7. Hypoglycemia 8. Septic shock secondary to above 9. Encephalopathy possibly toxic metabolic. RECS: 1. Continue mechanical ventilation. We will proceed with tracheostomy and G- tube has no family members present. Patient remains awake and alert intermittently and therefore not candidate for intensive care at present. I do however agree with DNR status as cardiac arrest with result in significant decreased quality of life. 2. Pulmonary toilet 3. Continue tube feeding if tolerated 4. Continue vasopressor support 5. Monitor H&H, 6. DVT and GI prophylaxis. Discussed with staff at bedside 40 min cc time Agree with bioethics consultation Problems: CAS LIMA MD, [facility] Mar 05, 2017 10:31
--- NOTE | 2017-03-05 11:52 | PN ---
Date/Time of Note Date/Time of Note DATE: 03/05/17 TIME: 11:51 Assessment/Plan Lines/Catheters IV Catheter Type (from Nrsg): PICC Line Patel in Place (from Nrsg): Yes Assessment/Plan Chief Complaint/Hosp Course Resp failure plan for tracheostomy on friday Problems: Subjective 24 Hr Interval Summary Constitutional: improved Pain Control: mild Exam/Review of Systems Vital Signs Vitals Vital Signs Date Time Temp Pulse Resp B/P Pulse Ox O2 Delivery O2 Flow Rate FiO2 03/05/17 11:00 83 21 85/68 99 Mechanical Ventilator 03/05/17 08:00 98.3 03/05/17 08:00 50 Intake and Output 03/04/17 03/04/17 03/05/17 15:00 23:00 07:00 Intake Total 708.68 ml 763.92 ml 922.936 ml Output Total 1675 ml 2176 ml 597 ml Balance -966.32 ml -1412.08 ml 325.936 ml Exam ENMT: mucosa pink and moist, nl external ears & nose, nl lips & teeth, nl nasal mucosa & septum Neck: non-tender, supple Respiratory: clear to auscultation, normal air movement Cardiovascular: nl pulses, regular rate and rhythm Results Result Diagram: 03/05/170 03/05/17429 GUANAKITO THURMAN MD Mar 05, 2017 11:52
[2017-03-05] MEDS ORDERED: VANCOMYCIN 1 GM (PMX) 250 ML IVPB SCH (14:00)
--- NOTE | 2017-03-05 16:33 | CONS ---
Date/Time of Note Date/Time of Note DATE: 03/05/17 TIME: 16:31 Assessment/Plan Assessment/Plan Additional Assessment/Plan Cardiopulmonary arrest Septic shock Vent dependent respiratory failure, reintubated Cardiomyopathy with ejection fraction 20% Non-ST elevation CT Acute kidney injury Acute blood loss anemia Paroxysmal atrial fibrillation -Patient status post hypothermia protocol. -Continue aspirin and statin therapy, no beta-naida secondary to bradycardia, no BERTHA inhibitor secondary to acute kidney injury. Titrate IV pressor to maintain SBP greater than 90 and or map above 60. Diuretics on hold at the current time given hypotension. Consultation Date/Type/Reason Admit Date/Time Feb 14, 2017 at 16:02 Type of Consultation: cv 24 HR Interval Summary Free Text/Dictation Patient with worsening hypotension requiring IV pressor Exam/Review of Systems Vital Signs Vitals Vital Signs Date Time Temp Pulse Resp B/P Pulse Ox O2 Delivery O2 Flow Rate FiO2 03/05/17 16:18 95 27 98 40 03/05/17 16:15 94/73 03/05/17 16:00 99.5 Mechanical Ventilator Intake and Output 03/04/17 03/04/17 03/05/17 15:00 23:00 07:00 Intake Total 708.68 ml 763.92 ml 922.936 ml Output Total 1675 ml 2176 ml 597 ml Balance -966.32 ml -1412.08 ml 325.936 ml Exam Sedated and intubated, no apparent distress Head: normocephalic ENMT: intubated Respiratory: other (Coarse breath sounds bilaterally, no wheezing) Cardiovascular: other (S1-S2 heard), regular rate and rhythm Gastrointestinal: bowel sounds, non-tender, soft Extremities: edema Results Result Diagram: 03/05/17 0430 03/05/17 0430 Results 24 hrs Laboratory Tests Test 03/04/17 17:47 03/05/17 00:22 03/05/17 04:30 03/05/17 06:19 Bedside Glucose 86 119 122 White Blood Count 8.4 Red Blood Count 3.06 L Hemoglobin 9.7 L Hematocrit 29.6 L Mean Corpuscular Volume 96.7 Mean Corpuscular Hemoglobin 31.7 Mean Corpuscular Hemoglobin Concent 32.8 Red Cell Distribution Width 15.6 H Platelet Count 220 Mean Platelet Volume 10.4 Neutrophils % 72.9 Lymphocytes % 12.7 L Monocytes % 7.6 Eosinophils % 5.6 Basophils % 0.6 Nucleated Red Blood Cells % 0.0 Neutrophils # 6.1 Lymphocytes # 1.1 Monocytes # 0.6 Eosinophils # 0.5 Basophils # 0.1 Nucleated Red Blood Cells # 0.0 Sodium Level 140 Potassium Level 3.5 Chloride Level 95 L Carbon Dioxide Level 34 H Anion Gap 15 Blood Urea Nitrogen 34 H Creatinine 1.63 H Glucose Level 122 Calcium Level 8.2 L Phosphorus Level 3.7 Magnesium Level 1.8 Test 03/05/17 14:07 Bedside Glucose 145 Medications Medications Current Medications Ondansetron HCl (Zofran Inj) 4 mg Q6H PRN IV NAUSEA AND/OR VOMITING; Start 02/14 at 16:00 Pantoprazole (Protonix Iv) 40 mg DAILY@06 IV Last administered on 03/05/17 06: 19; Admin Dose 40 MG; Start 02/15/17 at 06:00 Acetaminophen (Tylenol Supp) 650 mg Q4H PRN [place] TEMP > 37C; Start 02/14/17 at 18: 00 Acetaminophen (Tylenol Liquid) 650 mg Q4H PRN PO TEMP > 37C Last administered on 03/04/17 05:27; Admin Dose 650 MG; Start 02/14/17 at 18:00 Eye Lubricant (Akwa Oint) 1 applic Q6 BOTH EYES Last administered on 03/05/17 11:35; Admin Dose 1 APPLIC; Start 02/14/17 at 18:00 Eye Lubricant 2 drop 2 drop Q6 BOTH EYES Last administered on 03/05/17 11:36; Admin Dose 2 DROP; Start 02/14/17 at 18:00 Norepinephrine 16 mg/Dextrose 500 ml @ 0 mls/hr TITRATE IV Last administered on 03/04/17 07:55; Admin Dose 5.62 MLS/HR; Start 02/14/17 at 22:00 Phenylephrine HCl/ Dextrose (Fritz-Syneph/D5W) 500 ml @ 75 mls/hr TITRATE IV ; Start 02/16/17 at 03:30 Miscellaneous Information 1 ea NOTE XX ; Start 02/16/17 at 11:30 Glucose (Glutose) 15 gm Q15M PRN PO DECREASED GLUCOSE; Start 02/16/17 at 11:30 Glucose (Glutose) 22.5 gm Q15M PRN PO DECREASED GLUCOSE; Start 02/16/17 at 11:30 Dextrose (D50w Syringe) 25 ml Q15M PRN IV DECREASED GLUCOSE; Start 02/16/17 at 11:30 Dextrose (D50w Syringe) 50 ml Q15M PRN IV DECREASED GLUCOSE; Start 02/16/17 at 11:30 Glucagon (Glucagen) 1 mg Q15M PRN IM DECREASED GLUCOSE; Start 02/16/17 at 11:30 Glucose 15 gm 15 gm Q15M PRN BUCCAL DECREASED GLUCOSE; Start 02/16/17 at 11:30 Vasopressin/ Dextrose (Vasostrict/D5W) 60 ml @ 1.8 mls/hr Q12H IV ; Start at 13:00 Aspirin (Aspirin) 81 mg DAILY GTB Last administered on 03/05/17 10:20; Admin Dose 81 MG; Start 02/18/17 at 09:00 Atorvastatin Calcium (Lipitor) 20 mg HS NGT Last administered on 03/04/17 20: 52; Admin Dose 20 MG; Start 02/17/17 at 21:00 Insulin Aspart (Novolog Insulin Pen) NOVOLOG *MILD* ALGORI... Q6 SC Last administered on 03/05/17 14:08; Admin Dose 1 UNIT; Start 02/20/17 at 00:00 IV Flush (NS 10 ml) 10 ml PRN PRN IV IV PROTOCOL; Start 02/20/17 at 16:00 Lorazepam (Ativan) 1 mg Q6H PRN IV AGITATION/ANXIETY Last administered on 10:12; Admin Dose 1 MG; Start 02/20/17 at 21:40 Morphine Sulfate 4 mg 4 mg Q2 PRN IV Severe Pain Last administered on 16:03; Admin Dose 4 MG; Start 02/26/17 at 21:30 Cefepime HCl 50 ml @ 100 mls/hr Q12 IVPB Last administered on 03/05/17 10:20 ; Admin Dose 100 MLS/HR; Start 03/02/17 at 11:00 Propofol (Diprivan) 100 ml @ 2.46 mls/hr Q12H IV Last administered on 10:21; Admin Dose 7.38 MLS/HR; Start 03/02/17 at 12:00 Ferrous Sulfate 300 mg 300 mg BID NGT Last administered on 03/05/17 10:20; Admin Dose 300 MG; Start 03/03/17 at 21:00 Vancomycin HCl 250 ml @ 125 mls/hr Q36H IVPB Last administered on 03/05/17 14 :07; Admin Dose 125 MLS/HR; Start 03/05/17 at 14:00 Albumin Human (Albumin Human 25%) 100 ml @ 100 mls/hr Q8H IV Last administered on 03/05/17 10:20; Admin Dose 100 MLS/HR; Start 03/05/17 at 08:30 ; Stop 03/06/17 at 01:29 Casey Schuler DO Mar 05, 2017 16:33
[2017-03-05] MEDS: ATORVASTATIN 20 MG TAB NGT SCH (20:02)
[2017-03-06] VITALS (84 sets, daily range): BP systolic 67–136; BP diastolic 50–87; PULSE 54–113; RESP 11–26
[2017-03-06] MEDS: OCULAR LUBRICANT 3.5 GM OPH OINT BOTH EYES SCH ×5 (00:17→23:42)
[2017-03-06] MEDS: ARTIFICIAL TEARS 15 ML OPH BOTH EYES SCH ×5 (00:17→23:42)
[2017-03-06] MEDS: ALBUMIN HUMAN 25% 100 ML IV SCH (00:21)
[2017-03-06] MEDS: VASOPRESSIN 60 UNIT in DEXTROSE 5% 57 ML IV SCH ×2 (00:24→12:44)
[2017-03-06] MEDS: PANTOPRAZOLE 40 MG INJ IV SCH (05:19)
[2017-03-06] MEDS: INSULIN ASPART [NOVOLOG] 3 ML PEN SC SCH ×5 (05:32→23:44)
[2017-03-06 06:02] LABS: BASOPHILS % 0.4 % (0.0-2.0); EOSINOPHILS # 0.4 10^3/ul (0.0-0.5); EOSINOPHILS % 5.1 % (0.0-7.0); HEMATOCRIT 26.8 % (42.0-52.0); HEMOGLOBIN 8.9 g/dl (14.0-18.0); LYMPHOCYTES % 12.5 % (15.0-51.0); MEAN CORPUSCULAR HEMOGLOBIN 32.1 pg (29.0-33.0); MEAN CORPUSCULAR HGB CONC 33.2 g/dl (32.0-37.0); MEAN CORPUSCULAR VOLUME 96.8 fl (82.0-101.0); MEAN PLATELET VOLUME 10.4 fl (7.4-10.4); MONOCYTE # 0.8 10^3/ul (0.3-0.9); MONOCYTES % 9.6 % (0.0-11.0); NEUTROPHIL # 5.7 10^3/ul (1.6-7.5); NEUTROPHILS % 71.5 % (39.0-77.0); PLATELET COUNT 195 10^3/UL (140-415); RED BLOOD COUNT 2.77 10^6/ul (4.70-6.10); RED CELL DISTRIBUTION WIDTH 15.4 % (11.5-14.5)
[2017-03-06 06:46] LABS: CALCIUM 8.4 mg/dl (8.4-10.2); CREATININE 1.58 mg/dl (0.61-1.24); POTASSIUM 3.4 mmol/L (3.5-5.1)
[2017-03-06] MEDS: PROPOFOL 100 ML IV SCH ×4 (07:51→23:43)
--- NOTE | 2017-03-06 07:59 | PN ---
Date/Time of Note Date/Time of Note DATE: 03/06/17 TIME: 07:55 Assessment/Plan Lines/Catheters IV Catheter Type (from Nrsg): PICC Line Urinary Cath still in place: Yes Assessment/Plan Chief Complaint/Hosp Course 1. Nonoliguric acute kidney injury with previous baseline creatinine 0.8 mg/dL. -Etiology of CROW secondary to ATN due to ischemic hypoperfusion shock. -Urinalysis was reviewed evidence of proteinuria, no evidence of active sediment -Renal function has been fluctuating but overall stable, -Holding Lasix in the setting of shock -Continue supportive care, renally dose all meds, avoid nephrotoxic Anemia. -Monitor H&H levels Mineral bone disorder -Monitor calcium phosphorus levels Replete phosphorus as needed Hypokalemia continue to monitor replete as needed Hypernatremia Improved Increase free water flushes 200 every 4 hours Monitor serial sodium levels Volume overload -Improving -Hold Lasix in the setting of shock Cardiac arrest. Patient status post hypothermia protocol -Follow-up with cardiology Ventilator dependent respiratory failure - ABGs reviewed, chest x-ray reviewed -Follow-up with pulmonary Pneumothorax -Status post chest tube placement, continue to monitor Septic shock -Cultures positive for bacteremia -Continue antibiotic regimen -Wean off pressors -Continue volume expansion with IV albumin -Follow-up with ID -Monitor closely Cardiomyopathy with ejection fraction 20% Continue current medical management Follow-up with our cardiology colleagues for further recommendations arrhythmia Continue medical management Problems: Subjective 24 Hr Interval Summary Free Text/Dictation Patient seen and examined Remains critically on pressor support Urinary output has been adequate FiO2 levels stable Exam/Review of Systems Vital Signs Vitals Vital Signs Date Time Temp Pulse Resp B/P Pulse Ox O2 Delivery O2 Flow Rate FiO2 03/06/17 07:30 81 22 94/82 97 Mechanical Ventilator 03/06/17 07:00 99.3 03/06/17 05:10 30 Intake and Output 03/05/17 03/05/17 03/06/17 15:00 23:00 07:00 Intake Total 1312.996 ml 987.48 ml 976.96 ml Output Total 1842 ml 647 ml 755 ml Balance -529.004 ml 340.48 ml 221.96 ml Exam HEENT: Head is normocephalic, NECK: Supple. HEART: Irregular LUNGS: Show diminished breath sounds at base. ABDOMEN: Soft, nontender to palpation without rebound or guarding. EXTREMITIES: Negative for clubbing, cyanosis. DERMATOLOGIC: No rashes. MUSCULOSKELETAL: No joint effusions, NEUROLOGIC: No change in exam. Results Result Diagram: 03/06/1739 03/06/17 0539 Results 24 hrs Laboratory Tests Test 03/05/17 14:07 03/05/17 18:39 03/06/17 00:16 03/06/17 05:27 Bedside Glucose 145 130 121 144 Test 03/06/17 05:39 White Blood Count 8.0 Red Blood Count 2.77 L Hemoglobin 8.9 L Hematocrit 26.8 L Mean Corpuscular Volume 96.8 Mean Corpuscular Hemoglobin 32.1 Mean Corpuscular Hemoglobin Concent 33.2 Red Cell Distribution Width 15.4 H Platelet Count 195 Mean Platelet Volume 10.4 Neutrophils % 71.5 Lymphocytes % 12.5 L Monocytes % 9.6 Eosinophils % 5.1 Basophils % 0.4 Nucleated Red Blood Cells % 0.0 Neutrophils # 5.7 Lymphocytes # 1.0 Monocytes # 0.8 Eosinophils # 0.4 Basophils # 0.0 Nucleated Red Blood Cells # 0.0 Sodium Level 143 Potassium Level 3.4 L Chloride Level 95 L Carbon Dioxide Level 34 H Anion Gap 17 H Blood Urea Nitrogen 37 H Creatinine 1.58 H Glucose Level 142 Calcium Level 8.4 Phosphorus Level 3.0 Magnesium Level 2.0 Medications Medications Current Medications Ondansetron HCl (Zofran Inj) 4 mg Q6H PRN IV NAUSEA AND/OR VOMITING; Start 02/14 at 16:00 Pantoprazole (Protonix Iv) 40 mg DAILY@06 IV Last administered on 03/06/17 05: 19; Admin Dose 40 MG; Start 02/15/17 at 06:00 Acetaminophen (Tylenol Supp) 650 mg Q4H PRN [place] TEMP > 37C; Start 02/14/17 at 18: 00 Acetaminophen (Tylenol Liquid) 650 mg Q4H PRN PO TEMP > 37C Last administered on 03/04/17 05:27; Admin Dose 650 MG; Start 02/14/17 at 18:00 Eye Lubricant (Akwa Oint) 1 applic Q6 BOTH EYES Last administered on 03/06/17 05:23; Admin Dose 1 APPLIC; Start 02/14/17 at 18:00 Eye Lubricant 2 drop 2 drop Q6 BOTH EYES Last administered on 03/06/17 05:23; Admin Dose 2 DROP; Start 02/14/17 at 18:00 Norepinephrine 16 mg/Dextrose 500 ml @ 0 mls/hr TITRATE IV Last administered on 03/04/17 07:55; Admin Dose 5.62 MLS/HR; Start 02/14/17 at 22:00 Phenylephrine HCl/ Dextrose (Fritz-Syneph/D5W) 500 ml @ 75 mls/hr TITRATE IV ; Start 02/16/17 at 03:30 Miscellaneous Information 1 ea NOTE XX ; Start 02/16/17 at 11:30 Glucose (Glutose) 15 gm Q15M PRN PO DECREASED GLUCOSE; Start 02/16/17 at 11:30 Glucose (Glutose) 22.5 gm Q15M PRN PO DECREASED GLUCOSE; Start 02/16/17 at 11:30 Dextrose (D50w Syringe) 25 ml Q15M PRN IV DECREASED GLUCOSE; Start 02/16/17 at 11:30 Dextrose (D50w Syringe) 50 ml Q15M PRN IV DECREASED GLUCOSE; Start 02/16/17 at 11:30 Glucagon (Glucagen) 1 mg Q15M PRN IM DECREASED GLUCOSE; Start 02/16/17 at 11:30 Glucose 15 gm 15 gm Q15M PRN BUCCAL DECREASED GLUCOSE; Start 02/16/17 at 11:30 Vasopressin/ Dextrose (Vasostrict/D5W) 60 ml @ 1.8 mls/hr Q12H IV ; Start at 13:00 Aspirin (Aspirin) 81 mg DAILY GTB Last administered on 03/05/17 10:20; Admin Dose 81 MG; Start 02/18/17 at 09:00 Atorvastatin Calcium (Lipitor) 20 mg HS NGT Last administered on 03/05/17 20: 02; Admin Dose 20 MG; Start 02/17/17 at 21:00 Insulin Aspart (Novolog Insulin Pen) NOVOLOG *MILD* ALGORI... Q6 SC Last administered on 03/06/17 05:32; Admin Dose 1 UNIT; Start 02/20/17 at 00:00 IV Flush (NS 10 ml) 10 ml PRN PRN IV IV PROTOCOL; Start 02/20/17 at 16:00 Lorazepam (Ativan) 1 mg Q6H PRN IV AGITATION/ANXIETY Last administered on 10:12; Admin Dose 1 MG; Start 02/20/17 at 21:40 Morphine Sulfate 4 mg 4 mg Q2 PRN IV Severe Pain Last administered on 16:03; Admin Dose 4 MG; Start 02/26/17 at 21:30 Cefepime HCl 50 ml @ 100 mls/hr Q12 IVPB Last administered on 03/05/17 20:02 ; Admin Dose 100 MLS/HR; Start 03/02/17 at 11:00 Propofol (Diprivan) 100 ml @ 2.46 mls/hr Q12H IV Last administered on 07:51; Admin Dose 12.3 MLS/HR; Start 03/02/17 at 12:00 Ferrous Sulfate 300 mg 300 mg BID NGT Last administered on 03/05/17 20:02; Admin Dose 300 MG; Start 03/03/17 at 21:00 Vancomycin HCl (Vancocin) 250 ml @ 125 mls/hr Q36H IVPB Last administered on 14:07; Admin Dose 125 MLS/HR; Start 03/05/17 at 14:00 Potassium Chloride (Potassium Chloride Pwd/Soln) 40 meq ONCE ONCE GTB ; Start 03/06/17 at 08:00; Stop 03/06/17 at 08:01 JENSEN OLIVIER DO Mar 06, 2017 07:58
[2017-03-06] MEDS ORDERED: POTASSIUM CHLORIDE 20 MEQ POWDER FOR ORAL SOLN GTB ONE (08:00)
[2017-03-06] MEDS: CEFEPIME 1GM/50 ML (PMX) 50 ML IVPB SCH ×2 (08:36→20:40)
[2017-03-06] MEDS: ASPIRIN 81 MG TAB GTB SCH (08:36)
[2017-03-06] MEDS: FERROUS SULFATE 60 MG/ML 5ML CUP NGT SCH ×2 (08:36→20:40)
--- NOTE | 2017-03-06 08:38 | CONS ---
Date/Time of Note Date/Time of Note DATE: 03/06/17 TIME: 08:38 Consultation Date/Type/Reason Admit Date/Time Feb 14, 2017 at 16:02 Initial Consult Date Follow-up note for 03/05 Type of Consultation: Palliative care 24 HR Interval Summary Free Text/Dictation Bioethics meeting to be done today follow-up note will be done later this afternoon. Exam/Review of Systems Vital Signs Vitals Vital Signs Date Time Temp Pulse Resp B/P Pulse Ox O2 Delivery O2 Flow Rate FiO2 03/06/17 08:00 78 26 90/68 97 Mechanical Ventilator 03/06/17 07:00 99.3 03/06/17 05:10 30 Intake and Output 03/05/17 03/05/17 03/06/17 14:59 22:59 06:59 Intake Total 1063.488 ml 1236.20 ml 992.18 ml Output Total 1836 ml 640 ml 796 ml Balance -772.512 ml 596.20 ml 196.18 ml Results Result Diagram: 03/06/17 0539 03/06/17 0539 Results 24 hrs Laboratory Tests Test 03/05/17 14:07 03/05/17 18:39 03/06/17 00:16 03/06/17 05:27 Bedside Glucose 145 130 121 144 Test 03/06/17 05:39 White Blood Count 8.0 Red Blood Count 2.77 L Hemoglobin 8.9 L Hematocrit 26.8 L Mean Corpuscular Volume 96.8 Mean Corpuscular Hemoglobin 32.1 Mean Corpuscular Hemoglobin Concent 33.2 Red Cell Distribution Width 15.4 H Platelet Count 195 Mean Platelet Volume 10.4 Neutrophils % 71.5 Lymphocytes % 12.5 L Monocytes % 9.6 Eosinophils % 5.1 Basophils % 0.4 Nucleated Red Blood Cells % 0.0 Neutrophils # 5.7 Lymphocytes # 1.0 Monocytes # 0.8 Eosinophils # 0.4 Basophils # 0.0 Nucleated Red Blood Cells # 0.0 Sodium Level 143 Potassium Level 3.4 L Chloride Level 95 L Carbon Dioxide Level 34 H Anion Gap 17 H Blood Urea Nitrogen 37 H Creatinine 1.58 H Glucose Level 142 Calcium Level 8.4 Phosphorus Level 3.0 Magnesium Level 2.0 Medications Medications Current Medications Ondansetron HCl (Zofran Inj) 4 mg Q6H PRN IV NAUSEA AND/OR VOMITING; Start 02/14 at 16:00 Pantoprazole (Protonix Iv) 40 mg DAILY@06 IV Last administered on 03/06/17 05: 19; Admin Dose 40 MG; Start 02/15/17 at 06:00 Acetaminophen (Tylenol Supp) 650 mg Q4H PRN [place] TEMP > 37C; Start 02/14/17 at 18: 00 Acetaminophen (Tylenol Liquid) 650 mg Q4H PRN PO TEMP > 37C Last administered on 03/04/17 05:27; Admin Dose 650 MG; Start 02/14/17 at 18:00 Eye Lubricant (Akwa Oint) 1 applic Q6 BOTH EYES Last administered on 03/06/17 05:23; Admin Dose 1 APPLIC; Start 02/14/17 at 18:00 Eye Lubricant 2 drop 2 drop Q6 BOTH EYES Last administered on 03/06/17 05:23; Admin Dose 2 DROP; Start 02/14/17 at 18:00 Norepinephrine 16 mg/Dextrose 500 ml @ 0 mls/hr TITRATE IV Last administered on 03/04/17 07:55; Admin Dose 5.62 MLS/HR; Start 02/14/17 at 22:00 Phenylephrine HCl/ Dextrose (Fritz-Syneph/D5W) 500 ml @ 75 mls/hr TITRATE IV ; Start 02/16/17 at 03:30 Miscellaneous Information 1 ea NOTE XX ; Start 02/16/17 at 11:30 Glucose (Glutose) 15 gm Q15M PRN PO DECREASED GLUCOSE; Start 02/16/17 at 11:30 Glucose (Glutose) 22.5 gm Q15M PRN PO DECREASED GLUCOSE; Start 02/16/17 at 11:30 Dextrose (D50w Syringe) 25 ml Q15M PRN IV DECREASED GLUCOSE; Start 02/16/17 at 11:30 Dextrose (D50w Syringe) 50 ml Q15M PRN IV DECREASED GLUCOSE; Start 02/16/17 at 11:30 Glucagon (Glucagen) 1 mg Q15M PRN IM DECREASED GLUCOSE; Start 02/16/17 at 11:30 Glucose 15 gm 15 gm Q15M PRN BUCCAL DECREASED GLUCOSE; Start 02/16/17 at 11:30 Vasopressin/ Dextrose (Vasostrict/D5W) 60 ml @ 1.8 mls/hr Q12H IV ; Start at 13:00 Aspirin (Aspirin) 81 mg DAILY GTB Last administered on 03/05/17 10:20; Admin Dose 81 MG; Start 02/18/17 at 09:00 Atorvastatin Calcium (Lipitor) 20 mg HS NGT Last administered on 03/05/17 20: 02; Admin Dose 20 MG; Start 02/17/17 at 21:00 Insulin Aspart (Novolog Insulin Pen) NOVOLOG *MILD* ALGORI... Q6 SC Last administered on 03/06/17 05:32; Admin Dose 1 UNIT; Start 02/20/17 at 00:00 IV Flush (NS 10 ml) 10 ml PRN PRN IV IV PROTOCOL; Start 02/20/17 at 16:00 Lorazepam (Ativan) 1 mg Q6H PRN IV AGITATION/ANXIETY Last administered on 10:12; Admin Dose 1 MG; Start 02/20/17 at 21:40 Morphine Sulfate 4 mg 4 mg Q2 PRN IV Severe Pain Last administered on 16:03; Admin Dose 4 MG; Start 02/26/17 at 21:30 Cefepime HCl 50 ml @ 100 mls/hr Q12 IVPB Last administered on 03/05/17 20:02 ; Admin Dose 100 MLS/HR; Start 03/02/17 at 11:00 Propofol (Diprivan) 100 ml @ 2.46 mls/hr Q12H IV Last administered on 07:51; Admin Dose 12.3 MLS/HR; Start 03/02/17 at 12:00 Ferrous Sulfate 300 mg 300 mg BID NGT Last administered on 03/05/17 20:02; Admin Dose 300 MG; Start 03/03/17 at 21:00 Vancomycin HCl 250 ml @ 125 mls/hr Q36H IVPB Last administered on 03/05/17 14 :07; Admin Dose 125 MLS/HR; Start 03/05/17 at 14:00 Albumin Human (Albumin Human 25%) 50 ml @ 100 mls/hr Q8H IV ; Start 03/06/17 at 08:00; Stop 03/07/17 at 00:29 SPARKLE RAE Mar 06, 2017 08:38
--- NOTE | 2017-03-06 08:38 | CONS ---
Date/Time of Note Date/Time of Note DATE: 03/06/17 TIME: 08:36 Assessment/Plan Assessment/Plan Additional Assessment/Plan Essentially there is been no change in this gentlemen's overall clinical condition he will be presented at [facility] on 03/06. Goals of care will be discussed and CODE STATUS, as well as indications for trach but this gentleman who is remains encephalopathic and has been intubated 2 Consultation Date/Type/Reason Admit Date/Time Feb 14, 2017 at 16:02 Initial Consult Date Follow-up note for 03/05 Type of Consultation: Palliative care Exam/Review of Systems Vital Signs Vitals Vital Signs Date Time Temp Pulse Resp B/P Pulse Ox O2 Delivery O2 Flow Rate FiO2 03/06/17 08:00 78 26 90/68 97 Mechanical Ventilator 03/06/17 07:00 99.3 03/06/17 05:10 30 Intake and Output 03/05/17 03/05/17 03/06/17 14:59 22:59 06:59 Intake Total 1063.488 ml 1236.20 ml 992.18 ml Output Total 1836 ml 640 ml 796 ml Balance -772.512 ml 596.20 ml 196.18 ml Results Result Diagram: 03/06/17 0539 03/06/17 0539 Results 24 hrs Laboratory Tests Test 03/05/17 14:07 03/05/17 18:39 03/06/17 00:16 03/06/17 05:27 Bedside Glucose 145 130 121 144 Test 03/06/17 05:39 White Blood Count 8.0 Red Blood Count 2.77 L Hemoglobin 8.9 L Hematocrit 26.8 L Mean Corpuscular Volume 96.8 Mean Corpuscular Hemoglobin 32.1 Mean Corpuscular Hemoglobin Concent 33.2 Red Cell Distribution Width 15.4 H Platelet Count 195 Mean Platelet Volume 10.4 Neutrophils % 71.5 Lymphocytes % 12.5 L Monocytes % 9.6 Eosinophils % 5.1 Basophils % 0.4 Nucleated Red Blood Cells % 0.0 Neutrophils # 5.7 Lymphocytes # 1.0 Monocytes # 0.8 Eosinophils # 0.4 Basophils # 0.0 Nucleated Red Blood Cells # 0.0 Sodium Level 143 Potassium Level 3.4 L Chloride Level 95 L Carbon Dioxide Level 34 H Anion Gap 17 H Blood Urea Nitrogen 37 H Creatinine 1.58 H Glucose Level 142 Calcium Level 8.4 Phosphorus Level 3.0 Magnesium Level 2.0 Medications Medications Current Medications Ondansetron HCl (Zofran Inj) 4 mg Q6H PRN IV NAUSEA AND/OR VOMITING; Start 02/14 at 16:00 Pantoprazole (Protonix Iv) 40 mg DAILY@06 IV Last administered on 03/06/17 05: 19; Admin Dose 40 MG; Start 02/15/17 at 06:00 Acetaminophen (Tylenol Supp) 650 mg Q4H PRN [place] TEMP > 37C; Start 02/14/17 at 18: 00 Acetaminophen (Tylenol Liquid) 650 mg Q4H PRN PO TEMP > 37C Last administered on 03/04/17 05:27; Admin Dose 650 MG; Start 02/14/17 at 18:00 Eye Lubricant (Akwa Oint) 1 applic Q6 BOTH EYES Last administered on 03/06/17 05:23; Admin Dose 1 APPLIC; Start 02/14/17 at 18:00 Eye Lubricant 2 drop 2 drop Q6 BOTH EYES Last administered on 03/06/17 05:23; Admin Dose 2 DROP; Start 02/14/17 at 18:00 Norepinephrine 16 mg/Dextrose 500 ml @ 0 mls/hr TITRATE IV Last administered on 03/04/17 07:55; Admin Dose 5.62 MLS/HR; Start 02/14/17 at 22:00 Phenylephrine HCl/ Dextrose (Fritz-Syneph/D5W) 500 ml @ 75 mls/hr TITRATE IV ; Start 02/16/17 at 03:30 Miscellaneous Information 1 ea NOTE XX ; Start 02/16/17 at 11:30 Glucose (Glutose) 15 gm Q15M PRN PO DECREASED GLUCOSE; Start 02/16/17 at 11:30 Glucose (Glutose) 22.5 gm Q15M PRN PO DECREASED GLUCOSE; Start 02/16/17 at 11:30 Dextrose (D50w Syringe) 25 ml Q15M PRN IV DECREASED GLUCOSE; Start 02/16/17 at 11:30 Dextrose (D50w Syringe) 50 ml Q15M PRN IV DECREASED GLUCOSE; Start 02/16/17 at 11:30 Glucagon (Glucagen) 1 mg Q15M PRN IM DECREASED GLUCOSE; Start 02/16/17 at 11:30 Glucose 15 gm 15 gm Q15M PRN BUCCAL DECREASED GLUCOSE; Start 02/16/17 at 11:30 Vasopressin/ Dextrose (Vasostrict/D5W) 60 ml @ 1.8 mls/hr Q12H IV ; Start at 13:00 Aspirin (Aspirin) 81 mg DAILY GTB Last administered on 03/05/17 10:20; Admin Dose 81 MG; Start 02/18/17 at 09:00 Atorvastatin Calcium (Lipitor) 20 mg HS NGT Last administered on 03/05/17 20: 02; Admin Dose 20 MG; Start 02/17/17 at 21:00 Insulin Aspart (Novolog Insulin Pen) NOVOLOG *MILD* ALGORI... Q6 SC Last administered on 03/06/17 05:32; Admin Dose 1 UNIT; Start 02/20/17 at 00:00 IV Flush (NS 10 ml) 10 ml PRN PRN IV IV PROTOCOL; Start 02/20/17 at 16:00 Lorazepam (Ativan) 1 mg Q6H PRN IV AGITATION/ANXIETY Last administered on 10:12; Admin Dose 1 MG; Start 02/20/17 at 21:40 Morphine Sulfate 4 mg 4 mg Q2 PRN IV Severe Pain Last administered on 16:03; Admin Dose 4 MG; Start 02/26/17 at 21:30 Cefepime HCl 50 ml @ 100 mls/hr Q12 IVPB Last administered on 03/05/17 20:02 ; Admin Dose 100 MLS/HR; Start 03/02/17 at 11:00 Propofol (Diprivan) 100 ml @ 2.46 mls/hr Q12H IV Last administered on 07:51; Admin Dose 12.3 MLS/HR; Start 03/02/17 at 12:00 Ferrous Sulfate 300 mg 300 mg BID NGT Last administered on 03/05/17 20:02; Admin Dose 300 MG; Start 03/03/17 at 21:00 Vancomycin HCl 250 ml @ 125 mls/hr Q36H IVPB Last administered on 03/05/17 14 :07; Admin Dose 125 MLS/HR; Start 03/05/17 at 14:00 Albumin Human (Albumin Human 25%) 50 ml @ 100 mls/hr Q8H IV ; Start 03/06/17 at 08:00; Stop 03/07/17 at 00:29 SPARKLE RAE Mar 06, 2017 08:38
[2017-03-06] MEDS: ALBUMIN HUMAN 25% 50 ML IV SCH ×3 (08:45→23:44)
--- NOTE | 2017-03-06 08:52 | PN ---
Date/Time of Note Date/Time of Note DATE: 03/06/17 TIME: 08:50 Assessment/Plan VTE Prophylaxis VTE Prophylaxis Intervention: SCD's Lines/Catheters IV Catheter Type (from Nrs): PICC Line Central line still needed: Yes Urinary Cath still in place: Yes Reason Cath still needed: other (indicate) Assessment/Plan Chief Complaint/Hosp Course 1. Status post cardiac arrest secondary to ventricular fibrillation. Status post CPR and ACLS protocol with return of spontaneous circulation. Status post hypothermia protocol. Echocardiogram showing severe left ventricular systolic dysfunction. 2. Ventilator dependent respiratory failure secondary to cardiac arrest. The patient was extubated and reintubated on 03/02/2017 because of worsening respiratory distress. 3. Left-sided rib fractures and barotrauma with resultant pneumothorax secondary to repeated chest compressions. Status post chest tube placement. 4. Sepsis with multifocal pneumonia and coagulase-negative Staphylococcus bacteremia. Continue antibiotics. 5. Acute on chronic kidney disease. The patient being followed by nephrology. 6. Septic shock. The patient on pressors. 7. Ischemic cardiomyopathy with ejection fraction of 20%. Cardiology following. 8. Normocytic, normochromic anemia. Underlying iron deficiency. Continue iron supplements. 9. Fluids, electrolytes, and nutrition. IV fluids as per nephrology. Tube feedings. 10. DVT prophylaxis. Bilateral sequential compression devices. 11. Gastrointestinal prophylaxis. Proton pump inhibitors. 12. Plan. Replete potassium. Plan for trach and PEG. However, bioethics meeting pending for discussing the plan of care. Case discussed with Dr. Laughlin. Critical care time: 35 minutes. Problems: Subjective 24 Hr Interval Summary Free Text/Dictation The patient remains on pressors. Exam/Review of Systems Vital Signs Vitals Vital Signs Date Time Temp Pulse Resp B/P Pulse Ox O2 Delivery O2 Flow Rate FiO2 03/06/17 08:00 78 26 90/68 97 Mechanical Ventilator 03/06/17 07:00 99.3 03/06/17 05:10 30 Intake and Output 03/05/17 03/05/17 03/06/17 15:00 23:00 07:00 Intake Total 1312.996 ml 987.48 ml 976.96 ml Output Total 1842 ml 647 ml 755 ml Balance -529.004 ml 340.48 ml 221.96 ml Exam General: Adequately build 76 year-old male lying in bed in no apparent distress. HEENT: Normocephalic, atraumatic. Eyes: Anicteric sclerae, conjunctivae clear. ENT: Nasal septum midline, oral mucosa moist. Neck supple, no JVD noticed. Respiratory: Bilaterally finished breath sounds. No use of accessory muscles of respiration. ETT connected to mechanical ventilator. Chest tube to Pleur-evac. Cardiovascular: S1, S2 heard. No murmurs or gallops. Abdomen: Soft, nontender, and nondistended. Bowel sounds positive in all 4 quadrants. Genitourinary: Patel catheter in place. Extremities: No cyanosis, no clubbing, no edema. Peripheral pulses palpable. Neurologic: The patient is sedated. Skin: Normal skin turgor. No skin rashes. Results Result Diagram: 03/06/17 0539 03/06/17 0539 Results 24 hrs Laboratory Tests Test 03/05/17 14:07 03/05/17 18:39 03/06/17 00:16 03/06/17 05:27 Bedside Glucose 145 130 121 144 Test 03/06/17 05:39 White Blood Count 8.0 Red Blood Count 2.77 L Hemoglobin 8.9 L Hematocrit 26.8 L Mean Corpuscular Volume 96.8 Mean Corpuscular Hemoglobin 32.1 Mean Corpuscular Hemoglobin Concent 33.2 Red Cell Distribution Width 15.4 H Platelet Count 195 Mean Platelet Volume 10.4 Neutrophils % 71.5 Lymphocytes % 12.5 L Monocytes % 9.6 Eosinophils % 5.1 Basophils % 0.4 Nucleated Red Blood Cells % 0.0 Neutrophils # 5.7 Lymphocytes # 1.0 Monocytes # 0.8 Eosinophils # 0.4 Basophils # 0.0 Nucleated Red Blood Cells # 0.0 Sodium Level 143 Potassium Level 3.4 L Chloride Level 95 L Carbon Dioxide Level 34 H Anion Gap 17 H Blood Urea Nitrogen 37 H Creatinine 1.58 H Glucose Level 142 Calcium Level 8.4 Phosphorus Level 3.0 Magnesium Level 2.0 Medications Medications Current Medications Ondansetron HCl (Zofran Inj) 4 mg Q6H PRN IV NAUSEA AND/OR VOMITING; Start 02/14 at 16:00 Pantoprazole (Protonix Iv) 40 mg DAILY@06 IV Last administered on 03/06/17t 05: 19; Admin Dose 40 MG; Start 02/15/17 at 06:00 Acetaminophen (Tylenol Supp) 650 mg Q4H PRN [place] TEMP > 37C; Start 02/14/17 at 18: 00 Acetaminophen (Tylenol Liquid) 650 mg Q4H PRN PO TEMP > 37C Last administered on 03/04/17 05:27; Admin Dose 650 MG; Start 02/14/17 at 18:00 Eye Lubricant (Akwa Oint) 1 applic Q6 BOTH EYES Last administered on 03/06/17 05:23; Admin Dose 1 APPLIC; Start 02/14/17 at 18:00 Eye Lubricant 2 drop 2 drop Q6 BOTH EYES Last administered on 03/06/17 05:23; Admin Dose 2 DROP; Start 02/14/17 at 18:00 Norepinephrine 16 mg/Dextrose 500 ml @ 0 mls/hr TITRATE IV Last administered on 03/04/17 07:55; Admin Dose 5.62 MLS/HR; Start 02/14/17 at 22:00 Phenylephrine HCl/ Dextrose (Fritz-Syneph/D5W) 500 ml @ 75 mls/hr TITRATE IV ; Start 02/16/17 at 03:30 Miscellaneous Information 1 ea NOTE XX ; Start 02/16/17 at 11:30 Glucose (Glutose) 15 gm Q15M PRN PO DECREASED GLUCOSE; Start 02/16/17 at 11:30 Glucose (Glutose) 22.5 gm Q15M PRN PO DECREASED GLUCOSE; Start 02/16/17 at 11:30 Dextrose (D50w Syringe) 25 ml Q15M PRN IV DECREASED GLUCOSE; Start 02/16/17 at 11:30 Dextrose (D50w Syringe) 50 ml Q15M PRN IV DECREASED GLUCOSE; Start 02/16/17 at 11:30 Glucagon (Glucagen) 1 mg Q15M PRN IM DECREASED GLUCOSE; Start 02/16/17 at 11:30 Glucose 15 gm 15 gm Q15M PRN BUCCAL DECREASED GLUCOSE; Start 02/16/17 at 11:30 Vasopressin/ Dextrose (Vasostrict/D5W) 60 ml @ 1.8 mls/hr Q12H IV ; Start at 13:00 Aspirin (Aspirin) 81 mg DAILY GTB Last administered on 03/06/17 08:36; Admin Dose 81 MG; Start 02/18/17 at 09:00 Atorvastatin Calcium (Lipitor) 20 mg HS NGT Last administered on 03/05/17 20: 02; Admin Dose 20 MG; Start 02/17/17 at 21:00 Insulin Aspart (Novolog Insulin Pen) NOVOLOG *MILD* ALGORI... Q6 SC Last administered on 03/06/17 05:32; Admin Dose 1 UNIT; Start 02/20/17 at 00:00 IV Flush (NS 10 ml) 10 ml PRN PRN IV IV PROTOCOL; Start 02/20/17 at 16:00 Lorazepam (Ativan) 1 mg Q6H PRN IV AGITATION/ANXIETY Last administered on 10:12; Admin Dose 1 MG; Start 02/20/17 at 21:40 Morphine Sulfate 4 mg 4 mg Q2 PRN IV Severe Pain Last administered on 16:03; Admin Dose 4 MG; Start 02/26/17 at 21:30 Cefepime HCl 50 ml @ 100 mls/hr Q12 IVPB Last administered on 03/06/17 08:36 ; Admin Dose 100 MLS/HR; Start 03/02/17 at 11:00 Propofol (Diprivan) 100 ml @ 2.46 mls/hr Q12H IV Last administered on 07:51; Admin Dose 12.3 MLS/HR; Start 03/02/17 at 12:00 Ferrous Sulfate 300 mg 300 mg BID NGT Last administered on 03/06/17 08:36; Admin Dose 300 MG; Start 03/03/17 at 21:00 Vancomycin HCl 250 ml @ 125 mls/hr Q36H IVPB Last administered on 03/05/17 14 :07; Admin Dose 125 MLS/HR; Start 03/05/17 at 14:00 Albumin Human (Albumin Human 25%) 50 ml @ 100 mls/hr Q8H IV Last administered on 03/06/17 08:45; Admin Dose 100 MLS/HR; Start 03/06/17 at 08:00; Stop at 00:29 MADDIE ASHFORD NP Mar 06, 2017 08:52
--- NOTE | 2017-03-06 09:57 | CONS ---
Date/Time of Note Date/Time of Note DATE: 03/06/17 TIME: 09:56 Consult Date/Type/Reason Admit Date/Time Feb 14, 2017 at 16:02 Type of Consultation: Pulmonary ICU Subjective Patient continues mechanical ventilation remains intubated sedated. Objective Vital Signs Date Time Temp Pulse Resp B/P Pulse Ox O2 Delivery O2 Flow Rate FiO2 03/06/17 08:00 78 26 90/68 97 Mechanical Ventilator 03/06/17 07:00 99.3 03/06/17 05:10 30 Intake and Output 03/05/17 03/05/17 03/06/17 15:00 23:00 07:00 Intake Total 1312.996 ml 987.48 ml 976.96 ml Output Total 1842 ml 647 ml 755 ml Balance -529.004 ml 340.48 ml 221.96 ml Exam PHYSICAL EXAMINATION GENERAL: Elderly gentleman, intubated on mechanical ventilation, opens eyes and appears somewhat agitated. Orally intubated. VITAL SIGNS: see below. HEENT: Pupils equal, round, and reactive to light. CARDIAC: S1, S2, 1/6 systolic ejection murmur CHEST: Diminished air entry bilaterally. ABDOMEN: Mildly distended. Bowel sounds present no guarding or rebound EXTREMITIES: No cyanosis, clubbing edema +1 NEUROLOGIC: Generalized weakness Results/Medications Result Diagram: 03/06/17 0539 03/06/17 0539 Results 24 hrs Laboratory Tests Test 03/05/17 14:07 03/05/17 18:39 03/06/17 00:16 03/06/17 05:27 Bedside Glucose 145 130 121 144 Test 03/06/17 05:39 White Blood Count 8.0 Red Blood Count 2.77 L Hemoglobin 8.9 L Hematocrit 26.8 L Mean Corpuscular Volume 96.8 Mean Corpuscular Hemoglobin 32.1 Mean Corpuscular Hemoglobin Concent 33.2 Red Cell Distribution Width 15.4 H Platelet Count 195 Mean Platelet Volume 10.4 Neutrophils % 71.5 Lymphocytes % 12.5 L Monocytes % 9.6 Eosinophils % 5.1 Basophils % 0.4 Nucleated Red Blood Cells % 0.0 Neutrophils # 5.7 Lymphocytes # 1.0 Monocytes # 0.8 Eosinophils # 0.4 Basophils # 0.0 Nucleated Red Blood Cells # 0.0 Sodium Level 143 Potassium Level 3.4 L Chloride Level 95 L Carbon Dioxide Level 34 H Anion Gap 17 H Blood Urea Nitrogen 37 H Creatinine 1.58 H Glucose Level 142 Calcium Level 8.4 Phosphorus Level 3.0 Magnesium Level 2.0 Medications Current Medications Ondansetron HCl (Zofran Inj) 4 mg Q6H PRN IV NAUSEA AND/OR VOMITING; Start 02/14 at 16:00 Pantoprazole (Protonix Iv) 40 mg DAILY@06 IV Last administered on 03/06/17 05: 19; Admin Dose 40 MG; Start 02/15/17 at 06:00 Acetaminophen (Tylenol Supp) [address] TEMP > 37C; Start 02/14/17 at 18: 00 Acetaminophen (Tylenol Liquid) 650 mg Q4H PRN PO TEMP > 37C Last administered on 03/04/17 05:27; Admin Dose 650 MG; Start 02/14/17 at 18:00 Eye Lubricant (Akwa Oint) 1 applic Q6 BOTH EYES Last administered on 03/06/17 05:23; Admin Dose 1 APPLIC; Start 02/14/17 at 18:00 Eye Lubricant 2 drop 2 drop Q6 BOTH EYES Last administered on 03/06/17 05:23; Admin Dose 2 DROP; Start 02/14/17 at 18:00 Norepinephrine 16 mg/Dextrose 500 ml @ 0 mls/hr TITRATE IV Last administered on 03/04/17 07:55; Admin Dose 5.62 MLS/HR; Start 02/14/17 at 22:00 Phenylephrine HCl/ Dextrose (Fritz-Syneph/D5W) 500 ml @ 75 mls/hr TITRATE IV ; Start 02/16/17 at 03:30 Miscellaneous Information 1 ea NOTE XX ; Start 02/16/17 at 11:30 Glucose (Glutose) 15 gm Q15M PRN PO DECREASED GLUCOSE; Start 02/16/17 at 11:30 Glucose (Glutose) 22.5 gm Q15M PRN PO DECREASED GLUCOSE; Start 02/16/17 at 11:30 Dextrose (D50w Syringe) 25 ml Q15M PRN IV DECREASED GLUCOSE; Start 02/16/17 at 11:30 Dextrose (D50w Syringe) 50 ml Q15M PRN IV DECREASED GLUCOSE; Start 02/16/17 at 11:30 Glucagon (Glucagen) 1 mg Q15M PRN IM DECREASED GLUCOSE; Start 02/16/17 at 11:30 Glucose 15 gm 15 gm Q15M PRN BUCCAL DECREASED GLUCOSE; Start 02/16/17 at 11:30 Vasopressin/ Dextrose (Vasostrict/D5W) 60 ml @ 1.8 mls/hr Q12H IV ; Start at 13:00 Aspirin (Aspirin) 81 mg DAILY GTB Last administered on 03/06/17 08:36; Admin Dose 81 MG; Start 02/18/17 at 09:00 Atorvastatin Calcium (Lipitor) 20 mg HS NGT Last administered on 03/05/17 20: 02; Admin Dose 20 MG; Start 02/17/17 at 21:00 Insulin Aspart (Novolog Insulin Pen) NOVOLOG *MILD* ALGORI... Q6 SC Last administered on 03/06/17 05:32; Admin Dose 1 UNIT; Start 02/20/17 at 00:00 IV Flush (NS 10 ml) 10 ml PRN PRN IV IV PROTOCOL; Start 02/20/17 at 16:00 Lorazepam (Ativan) 1 mg Q6H PRN IV AGITATION/ANXIETY Last administered on 10:12; Admin Dose 1 MG; Start 02/20/17 at 21:40 Morphine Sulfate 4 mg 4 mg Q2 PRN IV Severe Pain Last administered on 16:03; Admin Dose 4 MG; Start 02/26/17 at 21:30 Cefepime HCl 50 ml @ 100 mls/hr Q12 IVPB Last administered on 03/06/17 08:36 ; Admin Dose 100 MLS/HR; Start 03/02/17 at 11:00 Propofol (Diprivan) 100 ml @ 2.46 mls/hr Q12H IV Last administered on 07:51; Admin Dose 12.3 MLS/HR; Start 03/02/17 at 12:00 Ferrous Sulfate 300 mg 300 mg BID NGT Last administered on 03/06/17 08:36; Admin Dose 300 MG; Start 03/03/17 at 21:00 Vancomycin HCl 250 ml @ 125 mls/hr Q36H IVPB Last administered on 03/05/17 14 :07; Admin Dose 125 MLS/HR; Start 03/05/17 at 14:00 Albumin Human (Albumin Human 25%) 50 ml @ 100 mls/hr Q8H IV Last administered on 03/06/17 08:45; Admin Dose 100 MLS/HR; Start 03/06/17 at 08:00; Stop at 00:29 Assessment/Plan Chief Complaint/Hosp Course IMP: 1. Cardiopulmonary Arrest: query primary cardiac event leading to respiratory failure and multilobar aspiration pneumonia, continues mechanical ventilation. Not able to liberate from mechanical ventilation 2. Respiratory Failure/Vent 3. Multifocal pneumonia--likely aspiration 4. s/p VF 5. ARF 6. Barotrauma--s/p CPR 7. Hypoglycemia 8. Septic shock secondary to above 9. Encephalopathy possibly toxic metabolic. 10. Left-sided chest tube placed during cardiopulmonary arrest RECS: 1. Continue mechanical ventilation. We will proceed with tracheostomy and G- tube has no family members present. Patient remains awake and alert intermittently and therefore not candidate for intensive care at present. I do however agree with DNR status as cardiac arrest with result in significant decreased quality of life. 2. Pulmonary toilet, continue chest tube drainage. 3. Continue tube feeding if tolerated 4. Continue vasopressor support 5. Monitor H&H, 6. DVT and GI prophylaxis. Discussed with staff at bedside 40 min cc time Bioethics meeting today. Problems: CAS LIMA MD, [facility] Mar 06, 2017 09:57
--- NOTE | 2017-03-06 14:06 | CONS ---
Date/Time of Note Date/Time of Note DATE: 03/06/17 TIME: 14:05 Assessment/Plan Assessment/Plan Additional Assessment/Plan Cardiopulmonary arrest Septic shock Vent dependent respiratory failure, reintubated Cardiomyopathy with ejection fraction 20% Non-ST elevation NE Acute kidney injury Acute blood loss anemia Paroxysmal atrial fibrillation -Patient status post hypothermia protocol. -Continue aspirin and statin therapy, no beta-naida secondary to bradycardia, no BERTHA inhibitor secondary to acute kidney injury. Titrate IV pressor to maintain SBP greater than 90 and or map above 60. Diuretics as per our nephrology colleagues. Consultation Date/Type/Reason Admit Date/Time Feb 14, 2017 at 16:02 Type of Consultation: cv 24 HR Interval Summary Free Text/Dictation Patient seen and examined, no new cardiac issues as per nursing staff Exam/Review of Systems Vital Signs Vitals Vital Signs Date Time Temp Pulse Resp B/P Pulse Ox O2 Delivery O2 Flow Rate FiO2 03/06/17 13:30 68 21 125/78 100 Mechanical Ventilator 03/06/17 12:00 99.0 03/06/17 08:00 30 Intake and Output 03/05/17 03/05/17 03/06/17 15:00 23:00 07:00 Intake Total 1312.996 ml 987.48 ml 976.96 ml Output Total 1842 ml 647 ml 755 ml Balance -529.004 ml 340.48 ml 221.96 ml Exam Sedated and intubated, no apparent distress Head: normocephalic ENMT: intubated Respiratory: other (Coarse breath sounds bilaterally, no wheezing) Cardiovascular: other (S1-S2 heard), regular rate and rhythm Gastrointestinal: bowel sounds, non-tender, soft Extremities: edema Results Result Diagram: 03/06/17 0539 03/06/17 0539 Results 24 hrs Laboratory Tests Test 03/05/17 14:07 03/05/17 18:39 03/06/17 00:16 03/06/17 05:27 Bedside Glucose 145 130 121 144 Test 03/06/17 05:39 03/06/17 11:40 White Blood Count 8.0 Red Blood Count 2.77 L Hemoglobin 8.9 L Hematocrit 26.8 L Mean Corpuscular Volume 96.8 Mean Corpuscular Hemoglobin 32.1 Mean Corpuscular Hemoglobin Concent 33.2 Red Cell Distribution Width 15.4 H Platelet Count 195 Mean Platelet Volume 10.4 Neutrophils % 71.5 Lymphocytes % 12.5 L Monocytes % 9.6 Eosinophils % 5.1 Basophils % 0.4 Nucleated Red Blood Cells % 0.0 Neutrophils # 5.7 Lymphocytes # 1.0 Monocytes # 0.8 Eosinophils # 0.4 Basophils # 0.0 Nucleated Red Blood Cells # 0.0 Sodium Level 143 Potassium Level 3.4 L Chloride Level 95 L Carbon Dioxide Level 34 H Anion Gap 17 H Blood Urea Nitrogen 37 H Creatinine 1.58 H Glucose Level 142 Calcium Level 8.4 Phosphorus Level 3.0 Magnesium Level 2.0 Bedside Glucose 119 Medications Medications Current Medications Ondansetron HCl (Zofran Inj) 4 mg Q6H PRN IV NAUSEA AND/OR VOMITING; Start 02/14 at 16:00 Pantoprazole (Protonix Iv) 40 mg DAILY@06 IV Last administered on 03/06/17 05: 19; Admin Dose 40 MG; Start 02/15/17 at 06:00 Acetaminophen (Tylenol Supp) 650 mg Q4H PRN [place] TEMP > 37C; Start 02/14/17 at 18: 00 Acetaminophen (Tylenol Liquid) 650 mg Q4H PRN PO TEMP > 37C Last administered on 03/04/17 05:27; Admin Dose 650 MG; Start 02/14/17 at 18:00 Eye Lubricant (Akwa Oint) 1 applic Q6 BOTH EYES Last administered on 03/06/17 11:39; Admin Dose 1 APPLIC; Start 02/14/17 at 18:00 Eye Lubricant 2 drop 2 drop Q6 BOTH EYES Last administered on 03/06/17 11:39; Admin Dose 2 DROP; Start 02/14/17 at 18:00 Norepinephrine 16 mg/Dextrose 500 ml @ 0 mls/hr TITRATE IV Last administered on 03/06/17 13:20; Admin Dose 22.5 MLS/HR; Start 02/14/17 at 22:00 Phenylephrine HCl/ Dextrose (Fritz-Syneph/D5W) 500 ml @ 75 mls/hr TITRATE IV ; Start 02/16/17 at 03:30 Miscellaneous Information 1 ea NOTE XX ; Start 02/16/17 at 11:30 Glucose (Glutose) 15 gm Q15M PRN PO DECREASED GLUCOSE; Start 02/16/17 at 11:30 Glucose (Glutose) 22.5 gm Q15M PRN PO DECREASED GLUCOSE; Start 02/16/17 at 11:30 Dextrose (D50w Syringe) 25 ml Q15M PRN IV DECREASED GLUCOSE; Start 02/16/17 at 11:30 Dextrose (D50w Syringe) 50 ml Q15M PRN IV DECREASED GLUCOSE; Start 02/16/17 at 11:30 Glucagon (Glucagen) 1 mg Q15M PRN IM DECREASED GLUCOSE; Start 02/16/17 at 11:30 Glucose 15 gm 15 gm Q15M PRN BUCCAL DECREASED GLUCOSE; Start 02/16/17 at 11:30 Vasopressin/ Dextrose (Vasostrict/D5W) 60 ml @ 1.8 mls/hr Q12H IV ; Start at 13:00 Aspirin (Aspirin) 81 mg DAILY GTB Last administered on 03/06/17 08:36; Admin Dose 81 MG; Start 02/18/17 at 09:00 Atorvastatin Calcium (Lipitor) 20 mg HS NGT Last administered on 03/05/17 20: 02; Admin Dose 20 MG; Start 02/17/17 at 21:00 Insulin Aspart (Novolog Insulin Pen) NOVOLOG *MILD* ALGORI... Q6 SC Last administered on 03/06/17 05:32; Admin Dose 1 UNIT; Start 02/20/17 at 00:00 IV Flush (NS 10 ml) 10 ml PRN PRN IV IV PROTOCOL; Start 02/20/17 at 16:00 Lorazepam (Ativan) 1 mg Q6H PRN IV AGITATION/ANXIETY Last administered on 10:12; Admin Dose 1 MG; Start 02/20/17 at 21:40 Morphine Sulfate 4 mg 4 mg Q2 PRN IV Severe Pain Last administered on 16:03; Admin Dose 4 MG; Start 02/26/17 at 21:30 Cefepime HCl 50 ml @ 100 mls/hr Q12 IVPB Last administered on 03/06/17 08:36 ; Admin Dose 100 MLS/HR; Start 03/02/17 at 11:00 Propofol (Diprivan) 100 ml @ 2.46 mls/hr Q12H IV Last administered on 07:51; Admin Dose 12.3 MLS/HR; Start 03/02/17 at 12:00 Ferrous Sulfate 300 mg 300 mg BID NGT Last administered on 03/06/17 08:36; Admin Dose 300 MG; Start 03/03/17 at 21:00 Albumin Human (Albumin Human 25%) 50 ml @ 100 mls/hr Q8H IV Last administered on 03/06/17 08:45; Admin Dose 100 MLS/HR; Start 03/06/17 at 08:00; Stop at 00:29 Casey Schuler DO Mar 06, 2017 14:06
--- NOTE | 2017-03-06 14:42 | QN ---
Documentation Comment Bioethics consultation note. Bioethics committee today met and reviewed information for Mr. Mercado. History and known social information were discussed. Importantly, attempts to locate any relatives or other persons who might be involved in care decisions for Mr. Mercado were also reviewed. At this time those have been unsuccessful. After careful review of the patient's information, the bioethics committee agrees with the opinions of Dr. Hernandez and Dr. Hawk that a DO NOT RESUSCITATE order is appropriate for Mr. Mercado at this time. He does not have capacity for decision making and there are no surrogate decision makers available. It is the opinion of his care team that he will not likely survive this hospitalization in the long-term, and also that his mental status will not be expected to improve to the point that decision making could be made by him competently. The committee would like to see a redoubled effort to contact any potential family members to help make decisions for his care within the next several days. He reportedly has a daughter, and potential leads as to the identity of that person have been identified, but no contact has been achieved to this point by our social work department who has been working to do so with great diligence. They will continue these attempts for the next several days, but if no other decision makers can be found, then the committee will need again on March 10 to make important decisions about continuation or discontinuation of life sustaining therapies, as well as addressing the issue of consent for procedures that may be required to extend life if deemed appropriate. There is some urgency at this point as the patient should not remain intubated without performing tracheostomy soon, and the decision to do so may or may not be in Mr. Mercado's best interest depending on his clinical status at that point. Should further clinical decompensation occur in the meantime, core members of the credentials committee could be contacted for an earlier decision if necessary. CARLEE PRICE MD Mar 06, 2017 14:41
--- NOTE | 2017-03-06 14:51 | CONS ---
Date/Time of Note Date/Time of Note DATE: 03/06/17 TIME: 14:40 Assessment/Plan Assessment/Plan Additional Assessment/Plan Assessment * Dysphagia * S/P cardiac arrest with ROSC * Acute Respiratory failure * Encephalopathy * Septic shock * Cardiomyopathy Plan * PEG tentatively scheduled but will defer to result of bioethics committee and family decision * Continue present management' * Further orders will depend on clinical course Consultation Date/Type/Reason Admit Date/Time Feb 14, 2017 at 16:02 Date of Consultation: Mar 06, 2017 Type of Consultation: Gastroenterology Reason for Consultation PEG placement Referring Provider: GUILHERME YATES of Present Illness 76 year old male s/p cardiac arrest secondary to ventricular fibrillation , placed on hypothermia protocol was referred to us for possible PEG insertion .A bioethics committee meeting and no decision was arrived yet according to RN.Presently patient intubated on ventilator unresponsive Constitutional: disoriented ENT: no complaints Respiratory: no complaints Cardiovascular: no complaints Gastrointestinal: no complaints Genitourinary: no complaints Musculoskeletal: bone/joint pain (Right hip) Skin: no complaints Psychological: confusion Past Surgical History Past Surgical Hx: no surgical history Social History Smoking Status: Unknown if ever smoked Exam/Review of Systems Vital Signs Vitals Vital Signs Date Time Temp Pulse Resp B/P Pulse Ox O2 Delivery O2 Flow Rate FiO2 03/06/17 14:15 66 26 121/75 100 Mechanical Ventilator 03/06/17 12:00 99.0 03/06/17 08:00 30 Intake and Output 03/05/17 03/05/17 03/06/17 15:00 23:00 07:00 Intake Total 1312.996 ml 987.48 ml 976.96 ml Output Total 1842 ml 647 ml 755 ml Balance -529.004 ml 340.48 ml 221.96 ml Exam Constitutional: frail ENMT: intubated, mucosa pink and moist Neck: non-tender, supple Respiratory: diminished breath sounds, other (ventilator) Cardiovascular: nl pulses, regular rate and rhythm Musculoskeletal: muscle weakness, swelling Extremities: pitting pedal edema Neurological: unresponsive Skin: nl turgor, rash or lesions Lymph: nl lymph nodes Results Result Diagram: 03/06/17 0539 03/06/17 0539 Results 24 hrs Laboratory Tests Test 03/05/17 18:39 03/06/17 00:16 03/06/17 05:27 03/06/17 05:39 Bedside Glucose 130 121 144 White Blood Count 8.0 Red Blood Count 2.77 L Hemoglobin 8.9 L Hematocrit 26.8 L Mean Corpuscular Volume 96.8 Mean Corpuscular Hemoglobin 32.1 Mean Corpuscular Hemoglobin Concent 33.2 Red Cell Distribution Width 15.4 H Platelet Count 195 Mean Platelet Volume 10.4 Neutrophils % 71.5 Lymphocytes % 12.5 L Monocytes % 9.6 Eosinophils % 5.1 Basophils % 0.4 Nucleated Red Blood Cells % 0.0 Neutrophils # 5.7 Lymphocytes # 1.0 Monocytes # 0.8 Eosinophils # 0.4 Basophils # 0.0 Nucleated Red Blood Cells # 0.0 Sodium Level 143 Potassium Level 3.4 L Chloride Level 95 L Carbon Dioxide Level 34 H Anion Gap 17 H Blood Urea Nitrogen 37 H Creatinine 1.58 H Glucose Level 142 Calcium Level 8.4 Phosphorus Level 3.0 Magnesium Level 2.0 Test 03/06/17 11:40 Bedside Glucose 119 Medications Medications Current Medications Ondansetron HCl (Zofran Inj) 4 mg Q6H PRN IV NAUSEA AND/OR VOMITING; Start 02/14 at 16:00 Pantoprazole (Protonix Iv) 40 mg DAILY@06 IV Last administered on 03/06/17 05: 19; Admin Dose 40 MG; Start 02/15/17 at 06:00 Acetaminophen (Tylenol Supp) 650 mg Q4H PRN [place] TEMP > 37C; Start 02/14/17 at 18: 00 Acetaminophen (Tylenol Liquid) 650 mg Q4H PRN PO TEMP > 37C Last administered on 03/04/17 05:27; Admin Dose 650 MG; Start 02/14/17 at 18:00 Eye Lubricant (Akwa Oint) 1 applic Q6 BOTH EYES Last administered on 03/06/17 11:39; Admin Dose 1 APPLIC; Start 02/14/17 at 18:00 Eye Lubricant 2 drop 2 drop Q6 BOTH EYES Last administered on 03/06/17 11:39; Admin Dose 2 DROP; Start 02/14/17 at 18:00 Norepinephrine 16 mg/Dextrose 500 ml @ 0 mls/hr TITRATE IV Last administered on 03/06/17 13:20; Admin Dose 22.5 MLS/HR; Start 02/14/17 at 22:00 Phenylephrine HCl/ Dextrose (Fritz-Syneph/D5W) 500 ml @ 75 mls/hr TITRATE IV ; Start 02/16/17 at 03:30 Miscellaneous Information 1 ea NOTE XX ; Start 02/16/17 at 11:30 Glucose (Glutose) 15 gm Q15M PRN PO DECREASED GLUCOSE; Start 02/16/17 at 11:30 Glucose (Glutose) 22.5 gm Q15M PRN PO DECREASED GLUCOSE; Start 02/16/17 at 11:30 Dextrose (D50w Syringe) 25 ml Q15M PRN IV DECREASED GLUCOSE; Start 02/16/17 at 11:30 Dextrose (D50w Syringe) 50 ml Q15M PRN IV DECREASED GLUCOSE; Start 02/16/17 at 11:30 Glucagon (Glucagen) 1 mg Q15M PRN IM DECREASED GLUCOSE; Start 02/16/17 at 11:30 Glucose 15 gm 15 gm Q15M PRN BUCCAL DECREASED GLUCOSE; Start 02/16/17 at 11:30 Vasopressin/ Dextrose (Vasostrict/D5W) 60 ml @ 1.8 mls/hr Q12H IV ; Start at 13:00 Aspirin (Aspirin) 81 mg DAILY GTB Last administered on 03/06/17 08:36; Admin Dose 81 MG; Start 02/18/17 at 09:00 Atorvastatin Calcium (Lipitor) 20 mg HS NGT Last administered on 03/05/17 20: 02; Admin Dose 20 MG; Start 02/17/17 at 21:00 Insulin Aspart (Novolog Insulin Pen) NOVOLOG *MILD* ALGORI... Q6 SC Last administered on 03/06/17 05:32; Admin Dose 1 UNIT; Start 02/20/17 at 00:00 IV Flush (NS 10 ml) 10 ml PRN PRN IV IV PROTOCOL; Start 02/20/17 at 16:00 Lorazepam (Ativan) 1 mg Q6H PRN IV AGITATION/ANXIETY Last administered on 10:12; Admin Dose 1 MG; Start 02/20/17 at 21:40 Morphine Sulfate 4 mg 4 mg Q2 PRN IV Severe Pain Last administered on 16:03; Admin Dose 4 MG; Start 02/26/17 at 21:30 Cefepime HCl 50 ml @ 100 mls/hr Q12 IVPB Last administered on 03/06/17 08:36 ; Admin Dose 100 MLS/HR; Start 03/02/17 at 11:00 Propofol (Diprivan) 100 ml @ 2.46 mls/hr Q12H IV Last administered on 07:51; Admin Dose 12.3 MLS/HR; Start 03/02/17 at 12:00 Ferrous Sulfate 300 mg 300 mg BID NGT Last administered on 03/06/17 08:36; Admin Dose 300 MG; Start 03/03/17 at 21:00 Albumin Human (Albumin Human 25%) 50 ml @ 100 mls/hr Q8H IV Last administered on 03/06/17 08:45; Admin Dose 100 MLS/HR; Start 03/06/17 at 08:00; Stop at 00:29 ANDREAS HILLS MD Mar 06, 2017 14:51
--- NOTE | 2017-03-06 19:58 | PN ---
Date/Time of Note Date/Time of Note DATE: 03/06/17 TIME: 19:57 Assessment/Plan Lines/Catheters IV Catheter Type (from Nrsg): PICC Line Patel in Place (from Nrsg): Yes Assessment/Plan Chief Complaint/Hosp Course Resp failure plan for tracheostomy on Tomorrow Problems: Subjective 24 Hr Interval Summary Constitutional: improved Pain Control: mild Exam/Review of Systems Vital Signs Vitals Vital Signs Date Time Temp Pulse Resp B/P Pulse Ox O2 Delivery O2 Flow Rate FiO2 03/06/17 19:44 60 26 100 30 03/06/17 19:00 117/68 Mechanical Ventilator 03/06/17 16:00 99.1 Intake and Output 03/05/17 03/05/17 03/06/17 15:00 23:00 07:00 Intake Total 1312.996 ml 987.48 ml 976.96 ml Output Total 1842 ml 647 ml 755 ml Balance -529.004 ml 340.48 ml 221.96 ml Exam Eyes: EOMI, nl conjunctiva, nl lids, nl sclera ENMT: mucosa pink and moist, nl external ears & nose, nl lips & teeth, nl nasal mucosa & septum Neck: non-tender, supple Respiratory: clear to auscultation, normal air movement Cardiovascular: nl pulses, regular rate and rhythm Results Result Diagram: 03/06/17 0539 03/06/17 0539 GUANAKITO THURMAN MD Mar 06, 2017 19:58
[2017-03-06] MEDS: ATORVASTATIN 20 MG TAB NGT SCH (20:40)
[2017-03-07] VITALS (104 sets, daily range): BP systolic 78–122; BP diastolic 48–81; PULSE 52–69; RESP 0–31
[2017-03-07] MEDS: VASOPRESSIN 60 UNIT in DEXTROSE 5% 57 ML IV SCH ×2 (01:00→12:40)
[2017-03-07] MEDS: OCULAR LUBRICANT 3.5 GM OPH OINT BOTH EYES SCH ×4 (05:29→23:24)
[2017-03-07] MEDS: PANTOPRAZOLE 40 MG INJ IV SCH (05:30)
[2017-03-07] MEDS: ARTIFICIAL TEARS 15 ML OPH BOTH EYES SCH ×4 (05:30→23:24)
[2017-03-07] MEDS: INSULIN ASPART [NOVOLOG] 3 ML PEN SC SCH ×4 (05:31→23:30)
[2017-03-07 06:50] LABS: BASOPHILS % 0.6 % (0.0-2.0); EOSINOPHILS % 5.2 % (0.0-7.0); HEMATOCRIT 25.4 % (42.0-52.0); HEMOGLOBIN 8.2 g/dl (14.0-18.0); LYMPHOCYTES % 11.7 % (15.0-51.0); MEAN CORPUSCULAR HEMOGLOBIN 31.4 pg (29.0-33.0); MEAN CORPUSCULAR HGB CONC 32.3 g/dl (32.0-37.0); MEAN CORPUSCULAR VOLUME 97.3 fl (82.0-101.0); MEAN PLATELET VOLUME 10.7 fl (7.4-10.4); MONOCYTES % 13.3 % (0.0-11.0); NEUTROPHILS % 67.9 % (39.0-77.0); PLATELET COUNT 190 10^3/UL (140-415); RED BLOOD COUNT 2.61 10^6/ul (4.70-6.10); RED CELL DISTRIBUTION WIDTH 15.4 % (11.5-14.5); WHITE BLOOD COUNT 8.4 10^3/ul (4.8-10.8)
[2017-03-07 06:51] LABS: BASOPHIL # 0.1 10^3/ul (0.0-0.1); EOSINOPHILS # 0.4 10^3/ul (0.0-0.5); MONOCYTE # 1.1 10^3/ul (0.3-0.9); NEUTROPHIL # 5.7 10^3/ul (1.6-7.5)
--- NOTE | 2017-03-07 07:47 | PN ---
Date/Time of Note Date/Time of Note DATE: 03/07/17 TIME: 07:46 Assessment/Plan Lines/Catheters IV Catheter Type (from Nrsg): PICC Line Urinary Cath still in place: Yes Assessment/Plan Chief Complaint/Hosp Course 1. Nonoliguric acute kidney injury with previous baseline creatinine 0.8 mg/dL. -Etiology of CROW secondary to ATN due to ischemic hypoperfusion shock. -Urinalysis was reviewed evidence of proteinuria, no evidence of active sediment -Renal function has been fluctuating but overall stable, -Holding Lasix in the setting of shock -Continue supportive care, renally dose all meds, avoid nephrotoxic Anemia. -Monitor H&H levels Mineral bone disorder -Monitor calcium phosphorus levels Replete phosphorus as needed Hypokalemia continue to monitor replete as needed Hypernatremia Improved Increase free water flushes 200 every 4 hours Monitor serial sodium levels Volume overload -Monitor I's and O's -Hold Lasix in the setting of shock Cardiac arrest. Patient status post hypothermia protocol -Follow-up with cardiology Ventilator dependent respiratory failure - ABGs reviewed, chest x-ray reviewed -Follow-up with pulmonary Pneumothorax -Status post chest tube placement, continue to monitor Septic shock -Cultures positive for bacteremia -Continue antibiotic regimen -Wean off pressors -Continue volume expansion with IV albumin -Follow-up with ID -Monitor closely Cardiomyopathy with ejection fraction 20% Continue current medical management Follow-up with our cardiology colleagues for further recommendations arrhythmia Continue medical management Problems: Subjective 24 Hr Interval Summary Free Text/Dictation Patient seen and examined Remains critically ill on pressor support being weaned off slowly Urinary output has been adequate Exam/Review of Systems Vital Signs Vitals Vital Signs Date Time Temp Pulse Resp B/P Pulse Ox O2 Delivery O2 Flow Rate FiO2 03/07/17 07:15 99.2 62 26 111/69 99 Mechanical Ventilator 03/07/17 05:45 30 Intake and Output 03/06/17 03/06/17 03/07/17 15:00 23:00 07:00 Intake Total 980.26 ml 800.13 ml 234.49 ml Output Total 571 ml 419 ml 675 ml Balance 409.26 ml 381.13 ml -440.51 ml Exam HEENT: Head is normocephalic, NECK: Supple. HEART: Irregular LUNGS: Show diminished breath sounds at base. ABDOMEN: Soft, nontender to palpation without rebound or guarding. EXTREMITIES: Negative for clubbing, cyanosis. DERMATOLOGIC: No rashes. MUSCULOSKELETAL: No joint effusions, NEUROLOGIC: No change in exam. Results Result Diagram: 03/07/17 0500 03/06/17 0539 Results 24 hrs Laboratory Tests Test 03/06/17 11:40 03/06/17 17:32 03/06/17 20:37 03/06/17 23:41 Bedside Glucose 119 132 130 141 Test 03/07/17 05:00 03/07/17 05:30 White Blood Count 8.4 Red Blood Count 2.61 L Hemoglobin 8.2 L Hematocrit 25.4 L Mean Corpuscular Volume 97.3 Mean Corpuscular Hemoglobin 31.4 Mean Corpuscular Hemoglobin Concent 32.3 Red Cell Distribution Width 15.4 H Platelet Count 190 Mean Platelet Volume 10.7 H Neutrophils % 67.9 Lymphocytes % 11.7 L Monocytes % 13.3 H Eosinophils % 5.2 Basophils % 0.6 Nucleated Red Blood Cells % 0.0 Neutrophils # 5.7 Lymphocytes # 1.0 Monocytes # 1.1 H Eosinophils # 0.4 Basophils # 0.1 Nucleated Red Blood Cells # 0.0 Bedside Glucose 94 Medications Medications Current Medications Ondansetron HCl (Zofran Inj) 4 mg Q6H PRN IV NAUSEA AND/OR VOMITING; Start 02/14 at 16:00 Pantoprazole (Protonix Iv) 40 mg DAILY@06 IV Last administered on 03/07/17 05: 30; Admin Dose 40 MG; Start 02/15/17 at 06:00 Acetaminophen (Tylenol Supp) 650 mg Q4H PRN [place] TEMP > 37C; Start 02/14/17 at 18: 00 Acetaminophen (Tylenol Liquid) 650 mg Q4H PRN PO TEMP > 37C Last administered on 03/04/17 05:27; Admin Dose 650 MG; Start 02/14/17 at 18:00 Eye Lubricant (Akwa Oint) 1 applic Q6 BOTH EYES Last administered on 03/07/17 05:29; Admin Dose 1 APPLIC; Start 02/14/17 at 18:00 Eye Lubricant 2 drop 2 drop Q6 BOTH EYES Last administered on 03/07/17 05:30; Admin Dose 2 DROP; Start 02/14/17 at 18:00 Norepinephrine 16 mg/Dextrose 500 ml @ 0 mls/hr TITRATE IV Last administered on 03/06/17 13:20; Admin Dose 22.5 MLS/HR; Start 02/14/17 at 22:00 Phenylephrine HCl/ Dextrose (Fritz-Syneph/D5W) 500 ml @ 75 mls/hr TITRATE IV ; Start 02/16/17 at 03:30 Miscellaneous Information 1 ea NOTE XX ; Start 02/16/17 at 11:30 Glucose (Glutose) 15 gm Q15M PRN PO DECREASED GLUCOSE; Start 02/16/17 at 11:30 Glucose (Glutose) 22.5 gm Q15M PRN PO DECREASED GLUCOSE; Start 02/16/17 at 11:30 Dextrose (D50w Syringe) 25 ml Q15M PRN IV DECREASED GLUCOSE; Start 02/16/17 at 11:30 Dextrose (D50w Syringe) 50 ml Q15M PRN IV DECREASED GLUCOSE; Start 02/16/17 at 11:30 Glucagon (Glucagen) 1 mg Q15M PRN IM DECREASED GLUCOSE; Start 02/16/17 at 11:30 Glucose 15 gm 15 gm Q15M PRN BUCCAL DECREASED GLUCOSE; Start 02/16/17 at 11:30 Vasopressin/ Dextrose (Vasostrict/D5W) 60 ml @ 1.8 mls/hr Q12H IV ; Start at 13:00 Aspirin (Aspirin) 81 mg DAILY GTB Last administered on 03/06/17 08:36; Admin Dose 81 MG; Start 02/18/17 at 09:00 Atorvastatin Calcium (Lipitor) 20 mg HS NGT Last administered on 03/06/17 20: 40; Admin Dose 20 MG; Start 02/17/17 at 21:00 Insulin Aspart (Novolog Insulin Pen) NOVOLOG *MILD* ALGORI... Q6 SC Last administered on 03/06/17 05:32; Admin Dose 1 UNIT; Start 02/20/17 at 00:00 IV Flush (NS 10 ml) 10 ml PRN PRN IV IV PROTOCOL; Start 02/20/17 at 16:00 Lorazepam (Ativan) 1 mg Q6H PRN IV AGITATION/ANXIETY Last administered on 10:12; Admin Dose 1 MG; Start 02/20/17 at 21:40 Morphine Sulfate 4 mg 4 mg Q2 PRN IV Severe Pain Last administered on 16:03; Admin Dose 4 MG; Start 02/26/17 at 21:30 Cefepime HCl 50 ml @ 100 mls/hr Q12 IVPB Last administered on 03/06/17 20:40 ; Admin Dose 100 MLS/HR; Start 03/02/17 at 11:00 Propofol (Diprivan) 100 ml @ 2.46 mls/hr Q12H IV Last administered on 23:43; Admin Dose 9.84 MLS/HR; Start 03/02/17 at 12:00 Ferrous Sulfate (Feosol Liquid Cup) 300 mg BID NGT Last administered on 20:40; Admin Dose 300 MG; Start 03/03/17 at 21:00 JENSEN OLIVIER DO Mar 07, 2017 07:47
[2017-03-07] MEDS: ALBUMIN HUMAN 25% 100 ML IV SCH ×3 (07:57→23:26)
[2017-03-07] MEDS: FERROUS SULFATE 60 MG/ML 5ML CUP NGT SCH ×2 (08:08→20:55)
[2017-03-07] MEDS: ASPIRIN 81 MG TAB GTB SCH (08:08)
[2017-03-07] MEDS: morphine 4 MG/ML VIAL IV PRN (08:08)
--- NOTE | 2017-03-07 08:46 | PN ---
Date/Time of Note Date/Time of Note DATE: 03/07/17 TIME: 08:44 Assessment/Plan VTE Prophylaxis VTE Prophylaxis Intervention: SCD's Lines/Catheters IV Catheter Type (from [facility]): PICC Line Central line still needed: Yes Urinary Cath still in place: Yes Reason Cath still needed: other (indicate) Assessment/Plan Chief Complaint/Hosp Course 1. Status post cardiac arrest secondary to ventricular fibrillation. Status post CPR and ACLS protocol with return of spontaneous circulation. Status post hypothermia protocol. Echocardiogram showing severe left ventricular systolic dysfunction. 2. Ventilator dependent respiratory failure secondary to cardiac arrest. The patient was extubated and reintubated on 03/02/2017 because of worsening respiratory distress. 3. Left-sided rib fractures and barotrauma with resultant pneumothorax secondary to repeated chest compressions. Status post chest tube placement. 4. Sepsis with multifocal pneumonia and coagulase-negative Staphylococcus bacteremia. Continue antibiotics. 5. Acute on chronic kidney disease. The patient being followed by nephrology. 6. Septic shock. The patient on pressors. 7. Ischemic cardiomyopathy with ejection fraction of 20%. Cardiology following. 8. Normocytic, normochromic anemia. Underlying iron deficiency. Continue iron supplements. 9. Fluids, electrolytes, and nutrition. IV fluids as per nephrology. Tube feedings. 10. DVT prophylaxis. Bilateral sequential compression devices. 11. Gastrointestinal prophylaxis. Proton pump inhibitors. 12. Plan. Continue current care. Status post bioethics meeting on 03/06/2017. The committee decided on trying to find the patient's daughter until 2016. If unable to locate the patient's daughter by 03/10/2017, the committee will decide further plan of care including trach and PEG versus compassionate extubation. Case discussed with Dr. Laughlin. Critical care time: 35 minutes. Problems: Subjective 24 Hr Interval Summary Free Text/Dictation Patient remains on low-dose pressors. Exam/Review of Systems Vital Signs Vitals Vital Signs Date Time Temp Pulse Resp B/P Pulse Ox O2 Delivery O2 Flow Rate FiO2 03/07/17 08:00 30 03/07/17 07:15 99.2 62 26 111/69 99 Mechanical Ventilator Intake and Output 03/06/17 03/06/17 03/07/17 15:00 23:00 07:00 Intake Total 980.26 ml 800.13 ml 243.86 ml Output Total 571 ml 419 ml 675 ml Balance 409.26 ml 381.13 ml -431.14 ml Exam General: Adequately build 76 year-old male lying in bed in no apparent distress. HEENT: Normocephalic, atraumatic. Eyes: Anicteric sclerae, conjunctivae clear. ENT: Nasal septum midline, oral mucosa moist. Neck supple, no JVD noticed. Respiratory: Bilaterally finished breath sounds. No use of accessory muscles of respiration. ETT connected to mechanical ventilator. Chest tube to Pleur-evac. Cardiovascular: S1, S2 heard. No murmurs or gallops. Abdomen: Soft, nontender, and nondistended. Bowel sounds positive in all 4 quadrants. Genitourinary: Patel catheter in place. Extremities: No cyanosis, no clubbing, no edema. Peripheral pulses palpable. Neurologic: The patient is sedated. Skin: Normal skin turgor. No skin rashes. Results Result Diagram: 03/07/17 0500 03/06/17 0539 Results 24 hrs Laboratory Tests Test 03/06/17 11:40 03/06/17 17:32 03/06/17 20:37 03/06/17 23:41 Bedside Glucose 119 132 130 141 Test 03/07/17 05:00 03/07/17 05:30 White Blood Count 8.4 Red Blood Count 2.61 L Hemoglobin 8.2 L Hematocrit 25.4 L Mean Corpuscular Volume 97.3 Mean Corpuscular Hemoglobin 31.4 Mean Corpuscular Hemoglobin Concent 32.3 Red Cell Distribution Width 15.4 H Platelet Count 190 Mean Platelet Volume 10.7 H Neutrophils % 67.9 Lymphocytes % 11.7 L Monocytes % 13.3 H Eosinophils % 5.2 Basophils % 0.6 Nucleated Red Blood Cells % 0.0 Neutrophils # 5.7 Lymphocytes # 1.0 Monocytes # 1.1 H Eosinophils # 0.4 Basophils # 0.1 Nucleated Red Blood Cells # 0.0 Bedside Glucose 94 Medications Medications Current Medications Ondansetron HCl (Zofran Inj) 4 mg Q6H PRN IV NAUSEA AND/OR VOMITING; Start 02/14 at 16:00 Pantoprazole (Protonix Iv) 40 mg DAILY@06 IV Last administered on 03/07/17t 05: 30; Admin Dose 40 MG; Start 02/15/17 at 06:00 Acetaminophen (Tylenol Supp) 650 mg Q4H PRN [place] TEMP > 37C; Start 02/14/17 at 18: 00 Acetaminophen (Tylenol Liquid) 650 mg Q4H PRN PO TEMP > 37C Last administered on 03/04/17 05:27; Admin Dose 650 MG; Start 02/14/17 at 18:00 Eye Lubricant (Akwa Oint) 1 applic Q6 BOTH EYES Last administered on 03/07/17 05:29; Admin Dose 1 APPLIC; Start 02/14/17 at 18:00 Eye Lubricant 2 drop 2 drop Q6 BOTH EYES Last administered on 03/07/17 05:30; Admin Dose 2 DROP; Start 02/14/17 at 18:00 Norepinephrine 16 mg/Dextrose 500 ml @ 0 mls/hr TITRATE IV Last administered on 03/06/17 13:20; Admin Dose 22.5 MLS/HR; Start 02/14/17 at 22:00 Phenylephrine HCl/ Dextrose (Fritz-Syneph/D5W) 500 ml @ 75 mls/hr TITRATE IV ; Start 02/16/17 at 03:30 Miscellaneous Information 1 ea NOTE XX ; Start 02/16/17 at 11:30 Glucose (Glutose) 15 gm Q15M PRN PO DECREASED GLUCOSE; Start 02/16/17 at 11:30 Glucose (Glutose) 22.5 gm Q15M PRN PO DECREASED GLUCOSE; Start 02/16/17 at 11:30 Dextrose (D50w Syringe) 25 ml Q15M PRN IV DECREASED GLUCOSE; Start 02/16/17 at 11:30 Dextrose (D50w Syringe) 50 ml Q15M PRN IV DECREASED GLUCOSE; Start 02/16/17 at 11:30 Glucagon (Glucagen) 1 mg Q15M PRN IM DECREASED GLUCOSE; Start 02/16/17 at 11:30 Glucose 15 gm 15 gm Q15M PRN BUCCAL DECREASED GLUCOSE; Start 02/16/17 at 11:30 Vasopressin/ Dextrose (Vasostrict/D5W) 60 ml @ 1.8 mls/hr Q12H IV ; Start at 13:00 Aspirin (Aspirin) 81 mg DAILY GTB Last administered on 03/07/17 08:08; Admin Dose 81 MG; Start 02/18/17 at 09:00 Atorvastatin Calcium (Lipitor) 20 mg HS NGT Last administered on 03/06/17 20: 40; Admin Dose 20 MG; Start 02/17/17 at 21:00 Insulin Aspart (Novolog Insulin Pen) NOVOLOG *MILD* ALGORI... Q6 SC Last administered on 03/06/17 05:32; Admin Dose 1 UNIT; Start 02/20/17 at 00:00 IV Flush (NS 10 ml) 10 ml PRN PRN IV IV PROTOCOL; Start 02/20/17 at 16:00 Lorazepam (Ativan) 1 mg Q6H PRN IV AGITATION/ANXIETY Last administered on 10:12; Admin Dose 1 MG; Start 02/20/17 at 21:40 Morphine Sulfate 4 mg 4 mg Q2 PRN IV Severe Pain Last administered on 08:08; Admin Dose 4 MG; Start 02/26/17 at 21:30 Cefepime HCl 50 ml @ 100 mls/hr Q12 IVPB Last administered on 03/06/17 20:40 ; Admin Dose 100 MLS/HR; Start 03/02/17 at 11:00 Propofol (Diprivan) 100 ml @ 2.46 mls/hr Q12H IV Last administered on 23:43; Admin Dose 9.84 MLS/HR; Start 03/02/17 at 12:00 Ferrous Sulfate 300 mg 300 mg BID NGT Last administered on 03/07/17 08:08; Admin Dose 300 MG; Start 03/03/17 at 21:00 Albumin Human (Albumin Human 25%) 100 ml @ 100 mls/hr Q8H IV Last administered on 03/07/17 07:57; Admin Dose 100 MLS/HR; Start 03/07/17 at 08:00 ; Stop 03/08/17 at 00:59 MADDIE ASHFORD NP Mar 07, 2017 08:46
[2017-03-07] MEDS: CEFEPIME 1GM/50 ML (PMX) 50 ML IVPB SCH ×2 (08:49→20:55)
[2017-03-07] MEDS: PROPOFOL 100 ML IV SCH ×3 (09:30→19:12)
[2017-03-07 09:47] LABS: CALCIUM 8.5 mg/dl (8.4-10.2); CREATININE 1.48 mg/dl (0.61-1.24); MAGNESIUM 2.1 mg/dl (1.7-2.5); PHOSPHORUS 2.7 mg/dl (2.5-4.9); POTASSIUM 4.1 mmol/L (3.5-5.1)
--- NOTE | 2017-03-07 12:34 | HKNOTE ---
DATE OF SERVICE: 02/25/2017 HISTORY OF PRESENT ILLNESS: The patient is a 76-year-old with cardiopulmonary arrest, respiratory failure. PHYSICAL EXAMINATION: The patient is alert, awake, oriented. The patient is under cardiopulmonary arrest, respiratory failure, under ventilation. EEG done using 10/20 international electrode system with photic stimulation. Bilateral occipital hemispheres showed delta and theta waves, medium size, low amplitude, symmetric bilateral, 4 to 6 hertz. Some . No epileptiform discharge or seizure activity recorded. Followup EEG may be needed if clinically indicated. ASSESSMENT: This is abnormal electroencephalogram, shows generalized slowing consistent with the history of underlying encephalopathy. No epileptiform discharge or seizure activity. Followup EEG may be needed if clinically indicated. Dictated By: William Garrett MD /alonso/ /Document#: [id number]
[2017-03-07] MEDS ORDERED: LIDOCAINE 1% (MPF) 30 ML INJ ONE (13:08)
[2017-03-07] MEDS ORDERED: BUPIVACAINE 0.25%/EPI (SDV) 30 ML INJ ONE (13:08)
--- NOTE | 2017-03-07 13:35 | PN ---
Date/Time of Note Date/Time of Note DATE: 03/07/17 TIME: 13:34 Assessment/Plan Lines/Catheters IV Catheter Type (from Nrsg): PICC Line Patel in Place (from Nrsg): Yes Assessment/Plan Chief Complaint/Hosp Course Resp failure tracheostomy cancelled per bioethics Problems: Subjective 24 Hr Interval Summary Constitutional: improved Pain Control: mild Exam/Review of Systems Vital Signs Vitals Vital Signs Date Time Temp Pulse Resp B/P Pulse Ox O2 Delivery O2 Flow Rate FiO2 03/07/17 13:15 52 26 107/61 100 Mechanical Ventilator 03/07/17 12:00 98.6 03/07/17 08:00 30 Intake and Output 03/06/17 03/06/17 03/07/17 15:00 23:00 07:00 Intake Total 980.26 ml 800.13 ml 243.86 ml Output Total 571 ml 419 ml 675 ml Balance 409.26 ml 381.13 ml -431.14 ml Exam Head: No atraumatic, No hematomas, No lacerations, No normocephalic, No other ENMT: mucosa pink and moist, nl external ears & nose, nl lips & teeth, nl nasal mucosa & septum Neck: non-tender, supple Respiratory: clear to auscultation, normal air movement Cardiovascular: nl pulses, regular rate and rhythm Results Result Diagram: 03/07/17 0500 03/07/17 0613 GUANAKITO THURMAN MD Mar 07, 2017 13:35
--- NOTE | 2017-03-07 14:19 | CONS ---
Date/Time of Note Date/Time of Note DATE: 03/07/17 TIME: 14:18 Consult Date/Type/Reason Admit Date/Time Feb 14, 2017 at 16:02 Type of Consultation: Pulmonary Ordering Provider: GUILHERME YATES Subjective Findings of bioethics meeting noted. Patient remains relatively unchanged. Comfortable at rest no acute distress. Objective Vital Signs Date Time Temp Pulse Resp B/P Pulse Ox O2 Delivery O2 Flow Rate FiO2 03/07/17 13:30 52 26 102/63 100 Mechanical Ventilator 03/07/17 12:00 98.6 03/07/17 08:00 30 Intake and Output 03/06/17 03/06/17 03/07/17 15:00 23:00 07:00 Intake Total 980.26 ml 800.13 ml 243.86 ml Output Total 571 ml 419 ml 675 ml Balance 409.26 ml 381.13 ml -431.14 ml Exam PHYSICAL EXAMINATION GENERAL: Elderly gentleman on mechanical ventilation. VITAL SIGNS: see below. HEENT: Pupils equal, round, and reactive to light. CARDIAC: S1, S2, no added sounds or murmurs. CHEST: Diminished air entry bilaterally. ABDOMEN: Mildly distended. Bowel sounds present no guarding or rebound EXTREMITIES: No cyanosis, clubbing edema +1 NEUROLOGIC: Generalized weakness Results/Medications Result Diagram: 03/07/17 0500 03/07/17 0613 Results 24 hrs Laboratory Tests Test 03/06/17 17:32 03/06/17 20:37 03/06/17 23:41 03/07/17 05:00 Bedside Glucose 132 130 141 White Blood Count 8.4 Red Blood Count 2.61 L Hemoglobin 8.2 L Hematocrit 25.4 L Mean Corpuscular Volume 97.3 Mean Corpuscular Hemoglobin 31.4 Mean Corpuscular Hemoglobin Concent 32.3 Red Cell Distribution Width 15.4 H Platelet Count 190 Mean Platelet Volume 10.7 H Neutrophils % 67.9 Lymphocytes % 11.7 L Monocytes % 13.3 H Eosinophils % 5.2 Basophils % 0.6 Nucleated Red Blood Cells % 0.0 Neutrophils # 5.7 Lymphocytes # 1.0 Monocytes # 1.1 H Eosinophils # 0.4 Basophils # 0.1 Nucleated Red Blood Cells # 0.0 Test 03/07/17 05:30 03/07/17 06:13 03/07/17 11:30 Bedside Glucose 94 136 Sodium Level 142 Potassium Level 4.1 Chloride Level 99 Carbon Dioxide Level 30 Anion Gap 17 H Blood Urea Nitrogen 38 H Creatinine 1.48 H Glucose Level 88 # Calcium Level 8.5 Phosphorus Level 2.7 Magnesium Level 2.1 Medications Current Medications Ondansetron HCl (Zofran Inj) 4 mg Q6H PRN IV NAUSEA AND/OR VOMITING; Start 02/14 at 16:00 Pantoprazole (Protonix Iv) 40 mg DAILY@06 IV Last administered on 03/07/17 05: 30; Admin Dose 40 MG; Start 02/15/17 at 06:00 Acetaminophen (Tylenol Supp) 650 mg Q4H PRN [place] TEMP > 37C; Start 02/14/17 at 18: 00 Acetaminophen (Tylenol Liquid) 650 mg Q4H PRN PO TEMP > 37C Last administered on 03/04/17 05:27; Admin Dose 650 MG; Start 02/14/17 at 18:00 Eye Lubricant (Akwa Oint) 1 applic Q6 BOTH EYES Last administered on 03/07/17 11:29; Admin Dose 1 APPLIC; Start 02/14/17 at 18:00 Eye Lubricant 2 drop 2 drop Q6 BOTH EYES Last administered on 03/07/17 11:29; Admin Dose 2 DROP; Start 02/14/17 at 18:00 Norepinephrine 16 mg/Dextrose 500 ml @ 0 mls/hr TITRATE IV Last administered on 03/06/17 13:20; Admin Dose 22.5 MLS/HR; Start 02/14/17 at 22:00 Phenylephrine HCl/ Dextrose (Fritz-Syneph/D5W) 500 ml @ 75 mls/hr TITRATE IV ; Start 02/16/17 at 03:30 Miscellaneous Information 1 ea NOTE XX ; Start 02/16/17 at 11:30 Glucose (Glutose) 15 gm Q15M PRN PO DECREASED GLUCOSE; Start 02/16/17 at 11:30 Glucose (Glutose) 22.5 gm Q15M PRN PO DECREASED GLUCOSE; Start 02/16/17 at 11:30 Dextrose (D50w Syringe) 25 ml Q15M PRN IV DECREASED GLUCOSE; Start 02/16/17 at 11:30 Dextrose (D50w Syringe) 50 ml Q15M PRN IV DECREASED GLUCOSE; Start 02/16/17 at 11:30 Glucagon (Glucagen) 1 mg Q15M PRN IM DECREASED GLUCOSE; Start 02/16/17 at 11:30 Glucose 15 gm 15 gm Q15M PRN BUCCAL DECREASED GLUCOSE; Start 02/16/17 at 11:30 Vasopressin/ Dextrose (Vasostrict/D5W) 60 ml @ 1.8 mls/hr Q12H IV ; Start at 13:00 Aspirin (Aspirin) 81 mg DAILY GTB Last administered on 03/07/17 08:08; Admin Dose 81 MG; Start 02/18/17 at 09:00 Atorvastatin Calcium (Lipitor) 20 mg HS NGT Last administered on 03/06/17 20: 40; Admin Dose 20 MG; Start 02/17/17 at 21:00 Insulin Aspart (Novolog Insulin Pen) NOVOLOG *MILD* ALGORI... Q6 SC Last administered on 03/06/17 05:32; Admin Dose 1 UNIT; Start 02/20/17 at 00:00 IV Flush (NS 10 ml) 10 ml PRN PRN IV IV PROTOCOL; Start 02/20/17 at 16:00 Lorazepam (Ativan) 1 mg Q6H PRN IV AGITATION/ANXIETY Last administered on 10:12; Admin Dose 1 MG; Start 02/20/17 at 21:40 Morphine Sulfate 4 mg 4 mg Q2 PRN IV Severe Pain Last administered on 08:08; Admin Dose 4 MG; Start 02/26/17 at 21:30 Cefepime HCl 50 ml @ 100 mls/hr Q12 IVPB Last administered on 03/07/17 08:49 ; Admin Dose 100 MLS/HR; Start 03/02/17 at 11:00 Propofol (Diprivan) 100 ml @ 2.46 mls/hr Q12H IV Last administered on 09:30; Admin Dose 9.84 MLS/HR; Start 03/02/17 at 12:00 Ferrous Sulfate 300 mg 300 mg BID NGT Last administered on 03/07/17 08:08; Admin Dose 300 MG; Start 03/03/17 at 21:00 Albumin Human (Albumin Human 25%) 100 ml @ 100 mls/hr Q8H IV Last administered on 03/07/17 07:57; Admin Dose 100 MLS/HR; Start 03/07/17 at 08:00 ; Stop 03/08/17 at 00:59 Assessment/Plan Chief Complaint/Hosp Course IMP: 1. Cardiopulmonary Arrest: query primary cardiac event leading to respiratory failure and multilobar aspiration pneumonia, continues mechanical ventilation. Not able to liberate from mechanical ventilation 2. Respiratory Failure/Vent 3. Multifocal pneumonia--likely aspiration 4. s/p VF 5. ARF 6. Barotrauma--s/p CPR 7. Hypoglycemia 8. Septic shock secondary to above 9. Encephalopathy possibly toxic metabolic. 10. Left-sided chest tube placed during cardiopulmonary arrest RECS: 1. Continue mechanical ventilation. We will proceed with tracheostomy and G- tube has no family members present. Patient remains awake and alert intermittently and therefore not candidate for intensive care at present. I do however agree with DNR status as cardiac arrest with result in significant decreased quality of life. Bioethics recommendations noted. Patient does have possibility of being weaned off mechanical ventilation over longer. If he does end up with tracheostomy. 2. Pulmonary toilet, continue chest tube drainage. 3. Continue tube feeding if tolerated 4. Continue vasopressor support 5. Monitor H&H, 6. DVT and GI prophylaxis. Discussed with staff at bedside 40 min cc time Bioethics meeting today. Problems: CAS LIMA MD, [facility] Mar 07, 2017 14:19
--- NOTE | 2017-03-07 14:52 | CONS ---
Date/Time of Note Date/Time of Note DATE: 03/07/17 TIME: 14:51 Assessment/Plan Assessment/Plan Additional Assessment/Plan Cardiopulmonary arrest Septic shock Vent dependent respiratory failure, reintubated Cardiomyopathy with ejection fraction 20% Non-ST elevation [place] Acute kidney injury Acute blood loss anemia Paroxysmal atrial fibrillation -Patient status post hypothermia protocol. -Continue aspirin and statin therapy, no beta-naida secondary to bradycardia, no BERTHA inhibitor secondary to acute kidney injury. Titrate IV pressor to maintain SBP greater than 90 and or map above 60. Diuretics as per our nephrology colleagues. Consultation Date/Type/Reason Admit Date/Time Feb 14, 2017 at 16:02 Type of Consultation: cv Referring Provider: GUILHERME YATES 24 HR Interval Summary Free Text/Dictation Patient seen and examined, no new cardiac issues as per nursing staff Exam/Review of Systems Vital Signs Vitals Vital Signs Date Time Temp Pulse Resp B/P Pulse Ox O2 Delivery O2 Flow Rate FiO2 03/07/17 14:45 52 26 96/61 100 Mechanical Ventilator 03/07/17 12:00 98.6 03/07/17 08:00 30 Intake and Output 03/06/17 03/06/17 03/07/17 15:00 23:00 07:00 Intake Total 980.26 ml 800.13 ml 243.86 ml Output Total 571 ml 419 ml 675 ml Balance 409.26 ml 381.13 ml -431.14 ml Exam Sedated and intubated, no apparent distress Head: normocephalic ENMT: intubated Respiratory: other (Coarse breath sounds bilaterally, no wheezing) Cardiovascular: other (S1-S2 heard), regular rate and rhythm Gastrointestinal: bowel sounds, non-tender, soft Extremities: other (Trace) Results Result Diagram: 03/07/17 0500 03/07/17 0613 Results 24 hrs Laboratory Tests Test 03/06/17 17:32 03/06/17 20:37 03/06/17 23:41 03/07/17 05:00 Bedside Glucose 132 130 141 White Blood Count 8.4 Red Blood Count 2.61 L Hemoglobin 8.2 L Hematocrit 25.4 L Mean Corpuscular Volume 97.3 Mean Corpuscular Hemoglobin 31.4 Mean Corpuscular Hemoglobin Concent 32.3 Red Cell Distribution Width 15.4 H Platelet Count 190 Mean Platelet Volume 10.7 H Neutrophils % 67.9 Lymphocytes % 11.7 L Monocytes % 13.3 H Eosinophils % 5.2 Basophils % 0.6 Nucleated Red Blood Cells % 0.0 Neutrophils # 5.7 Lymphocytes # 1.0 Monocytes # 1.1 H Eosinophils # 0.4 Basophils # 0.1 Nucleated Red Blood Cells # 0.0 Test 03/07/17 05:30 03/07/17 06:13 03/07/17 11:30 Bedside Glucose 94 136 Sodium Level 142 Potassium Level 4.1 Chloride Level 99 Carbon Dioxide Level 30 Anion Gap 17 H Blood Urea Nitrogen 38 H Creatinine 1.48 H Glucose Level 88 # Calcium Level 8.5 Phosphorus Level 2.7 Magnesium Level 2.1 Medications Medications Current Medications Ondansetron HCl (Zofran Inj) 4 mg Q6H PRN IV NAUSEA AND/OR VOMITING; Start 02/14 at 16:00 Pantoprazole (Protonix Iv) 40 mg DAILY@06 IV Last administered on 03/07/17 05: 30; Admin Dose 40 MG; Start 02/15/17 at 06:00 Acetaminophen (Tylenol Supp) 650 mg Q4H PRN [place] TEMP > 37C; Start 02/14/17 at 18: 00 Acetaminophen (Tylenol Liquid) 650 mg Q4H PRN PO TEMP > 37C Last administered on 03/04/17 05:27; Admin Dose 650 MG; Start 02/14/17 at 18:00 Eye Lubricant (Akwa Oint) 1 applic Q6 BOTH EYES Last administered on 03/07/17 11:29; Admin Dose 1 APPLIC; Start 02/14/17 at 18:00 Eye Lubricant 2 drop 2 drop Q6 BOTH EYES Last administered on 03/07/17 11:29; Admin Dose 2 DROP; Start 02/14/17 at 18:00 Norepinephrine 16 mg/Dextrose 500 ml @ 0 mls/hr TITRATE IV Last administered on 03/06/17 13:20; Admin Dose 22.5 MLS/HR; Start 02/14/17 at 22:00 Phenylephrine HCl/ Dextrose (Fritz-Syneph/D5W) 500 ml @ 75 mls/hr TITRATE IV ; Start 02/16/17 at 03:30 Miscellaneous Information 1 ea NOTE XX ; Start 02/16/17 at 11:30 Glucose (Glutose) 15 gm Q15M PRN PO DECREASED GLUCOSE; Start 02/16/17 at 11:30 Glucose (Glutose) 22.5 gm Q15M PRN PO DECREASED GLUCOSE; Start 02/16/17 at 11:30 Dextrose (D50w Syringe) 25 ml Q15M PRN IV DECREASED GLUCOSE; Start 02/16/17 at 11:30 Dextrose (D50w Syringe) 50 ml Q15M PRN IV DECREASED GLUCOSE; Start 02/16/17 at 11:30 Glucagon (Glucagen) 1 mg Q15M PRN IM DECREASED GLUCOSE; Start 02/16/17 at 11:30 Glucose 15 gm 15 gm Q15M PRN BUCCAL DECREASED GLUCOSE; Start 02/16/17 at 11:30 Vasopressin/ Dextrose (Vasostrict/D5W) 60 ml @ 1.8 mls/hr Q12H IV ; Start at 13:00 Aspirin (Aspirin) 81 mg DAILY GTB Last administered on 03/07/17 08:08; Admin Dose 81 MG; Start 02/18/17 at 09:00 Atorvastatin Calcium (Lipitor) 20 mg HS NGT Last administered on 03/06/17 20: 40; Admin Dose 20 MG; Start 02/17/17 at 21:00 Insulin Aspart (Novolog Insulin Pen) NOVOLOG *MILD* ALGORI... Q6 SC Last administered on 03/06/17 05:32; Admin Dose 1 UNIT; Start 02/20/17 at 00:00 IV Flush (NS 10 ml) 10 ml PRN PRN IV IV PROTOCOL; Start 02/20/17 at 16:00 Lorazepam (Ativan) 1 mg Q6H PRN IV AGITATION/ANXIETY Last administered on 10:12; Admin Dose 1 MG; Start 02/20/17 at 21:40 Morphine Sulfate 4 mg 4 mg Q2 PRN IV Severe Pain Last administered on 08:08; Admin Dose 4 MG; Start 02/26/17 at 21:30 Cefepime HCl 50 ml @ 100 mls/hr Q12 IVPB Last administered on 03/07/17 08:49 ; Admin Dose 100 MLS/HR; Start 03/02/17 at 11:00 Propofol (Diprivan) 100 ml @ 2.46 mls/hr Q12H IV Last administered on 7/28/ 17at 09:30; Admin Dose 9.84 MLS/HR; Start 03/02/17 at 12:00 Ferrous Sulfate 300 mg 300 mg BID NGT Last administered on 03/07/17 08:08; Admin Dose 300 MG; Start 03/03/17 at 21:00 Albumin Human (Albumin Human 25%) 100 ml @ 100 mls/hr Q8H IV Last administered on 03/07/17 07:57; Admin Dose 100 MLS/HR; Start 03/07/17 at 08:00 ; Stop 03/08/17 at 00:59 Casey Schuler DO Mar 07, 2017 14:52
--- NOTE | 2017-03-07 17:24 | PN ---
Date/Time of Note Date/Time of Note DATE: 03/07/17 TIME: 17:22 Assessment/Plan VTE Prophylaxis VTE Prophylaxis Intervention: SCD's Lines/Catheters IV [facility] Type (from [facility]): PICC Line Central line still needed: Yes Urinary Cath still in place: Yes Reason Cath still needed: urinary retention Assessment/Plan Assessment/Plan Assessment * Dysphagia * S/P cardiac arrest with ROSC * Acute Respiratory failure * Encephalopathy * Septic shock * Cardiomyopathy Plan * will signed but will follow up as needed * Continue present management' * Further orders will depend on clinical course Subjective 24 Hr Interval Summary Free Text/Dictation * Course reviewed * Bioethics notes noted Exam/Review of Systems Vital Signs Vitals Vital Signs Date Time Temp Pulse Resp B/P Pulse Ox O2 Delivery O2 Flow Rate FiO2 03/07/17 17:00 60 19 90/48 100 Mechanical Ventilator 03/07/17 16:30 98.4 03/07/17 15:00 30 Intake and Output 03/06/17 03/06/17 03/07/17 15:00 23:00 07:00 Intake Total 980.26 ml 800.13 ml 243.86 ml Output Total 571 ml 419 ml 675 ml Balance 409.26 ml 381.13 ml -431.14 ml Exam Constitutional: frail ENMT: intubated Respiratory: crackles/rales, diminished breath sounds Cardiovascular: nl pulses, regular rate and rhythm Gastrointestinal: distended, soft, No rebound or guarding Musculoskeletal: muscle weakness, swelling Extremities: normal pulses Neurological: unresponsive Skin: rash or lesions Lymph: nl lymph nodes Results Result Diagram: 03/07/17 0500 03/07/17 0613 Results 24 hrs Laboratory Tests Test 03/06/17 17:32 03/06/17 20:37 03/06/17 23:41 03/07/17 05:00 Bedside Glucose 132 130 141 White Blood Count 8.4 Red Blood Count 2.61 L Hemoglobin 8.2 L Hematocrit 25.4 L Mean Corpuscular Volume 97.3 Mean Corpuscular Hemoglobin 31.4 Mean Corpuscular Hemoglobin Concent 32.3 Red Cell Distribution Width 15.4 H Platelet Count 190 Mean Platelet Volume 10.7 H Neutrophils % 67.9 Lymphocytes % 11.7 L Monocytes % 13.3 H Eosinophils % 5.2 Basophils % 0.6 Nucleated Red Blood Cells % 0.0 Neutrophils # 5.7 Lymphocytes # 1.0 Monocytes # 1.1 H Eosinophils # 0.4 Basophils # 0.1 Nucleated Red Blood Cells # 0.0 Test 03/07/17 05:30 03/07/17 06:13 03/07/17 11:30 Bedside Glucose 94 136 Sodium Level 142 Potassium Level 4.1 Chloride Level 99 Carbon Dioxide Level 30 Anion Gap 17 H Blood Urea Nitrogen 38 H Creatinine 1.48 H Glucose Level 88 # Calcium Level 8.5 Phosphorus Level 2.7 Magnesium Level 2.1 Medications Medications Current Medications Ondansetron HCl (Zofran Inj) 4 mg Q6H PRN IV NAUSEA AND/OR VOMITING; Start 02/14 at 16:00 Pantoprazole (Protonix Iv) 40 mg DAILY@06 IV Last administered on 03/07/17 05: 30; Admin Dose 40 MG; Start 02/15/17 at 06:00 Acetaminophen (Tylenol Supp) 650 mg Q4H PRN [place] TEMP > 37C; Start 02/14/17 at 18: 00 Acetaminophen (Tylenol Liquid) 650 mg Q4H PRN PO TEMP > 37C Last administered on 03/04/17 05:27; Admin Dose 650 MG; Start 02/14/17 at 18:00 Eye Lubricant (Akwa Oint) 1 applic Q6 BOTH EYES Last administered on 03/07/17 17:07; Admin Dose 1 APPLIC; Start 02/14/17 at 18:00 Eye Lubricant 2 drop 2 drop Q6 BOTH EYES Last administered on 03/07/17 17:07; Admin Dose 2 DROP; Start 02/14/17 at 18:00 Norepinephrine 16 mg/Dextrose 500 ml @ 0 mls/hr TITRATE IV Last administered on 03/06/17 13:20; Admin Dose 22.5 MLS/HR; Start 02/14/17 at 22:00 Phenylephrine HCl/ Dextrose (Fritz-Syneph/D5W) 500 ml @ 75 mls/hr TITRATE IV ; Start 02/16/17 at 03:30 Miscellaneous Information 1 ea NOTE XX ; Start 02/16/17 at 11:30 Glucose (Glutose) 15 gm Q15M PRN PO DECREASED GLUCOSE; Start 02/16/17 at 11:30 Glucose (Glutose) 22.5 gm Q15M PRN PO DECREASED GLUCOSE; Start 02/16/17 at 11:30 Dextrose (D50w Syringe) 25 ml Q15M PRN IV DECREASED GLUCOSE; Start 02/16/17 at 11:30 Dextrose (D50w Syringe) 50 ml Q15M PRN IV DECREASED GLUCOSE; Start 02/16/17 at 11:30 Glucagon (Glucagen) 1 mg Q15M PRN IM DECREASED GLUCOSE; Start 02/16/17 at 11:30 Glucose 15 gm 15 gm Q15M PRN BUCCAL DECREASED GLUCOSE; Start 02/16/17 at 11:30 Vasopressin/ Dextrose (Vasostrict/D5W) 60 ml @ 1.8 mls/hr Q12H IV ; Start at 13:00 Aspirin (Aspirin) 81 mg DAILY GTB Last administered on 03/07/17 08:08; Admin Dose 81 MG; Start 02/18/17 at 09:00 Atorvastatin Calcium (Lipitor) 20 mg HS NGT Last administered on 03/06/17 20: 40; Admin Dose 20 MG; Start 02/17/17 at 21:00 Insulin Aspart (Novolog Insulin Pen) NOVOLOG *MILD* ALGORI... Q6 SC Last administered on 03/06/17 05:32; Admin Dose 1 UNIT; Start 02/20/17 at 00:00 IV Flush (NS 10 ml) 10 ml PRN PRN IV IV PROTOCOL; Start 02/20/17 at 16:00 Lorazepam (Ativan) 1 mg Q6H PRN IV AGITATION/ANXIETY Last administered on 10:12; Admin Dose 1 MG; Start 02/20/17 at 21:40 Morphine Sulfate 4 mg 4 mg Q2 PRN IV Severe Pain Last administered on 08:08; Admin Dose 4 MG; Start 02/26/17 at 21:30 Cefepime HCl 50 ml @ 100 mls/hr Q12 IVPB Last administered on 03/07/17 08:49 ; Admin Dose 100 MLS/HR; Start 03/02/17 at 11:00 Propofol (Diprivan) 100 ml @ 2.46 mls/hr Q12H IV Last administered on 09:30; Admin Dose 9.84 MLS/HR; Start 03/02/17 at 12:00 Ferrous Sulfate 300 mg 300 mg BID NGT Last administered on 03/07/17 08:08; Admin Dose 300 MG; Start 03/03/17 at 21:00 Albumin Human (Albumin Human 25%) 100 ml @ 100 mls/hr Q8H IV Last administered on 03/07/17 15:46; Admin Dose 100 MLS/HR; Start 03/07/17 at 08:00 ; Stop 03/08/17 at 00:59 CHRISTOPHE PELLETIER NP Mar 07, 2017 17:24
[2017-03-07] MEDS: ATORVASTATIN 20 MG TAB NGT SCH (20:55)
[2017-03-08] VITALS (105 sets, daily range): BP systolic 85–121; BP diastolic 54–82; PULSE 49–82; RESP 10–29
[2017-03-08] MEDS: VASOPRESSIN 60 UNIT in DEXTROSE 5% 57 ML IV SCH ×2 (01:00→12:29)
[2017-03-08] MEDS: LORAZEPAM 2 MG INJ IV PRN (01:09)
[2017-03-08 04:29] LABS: BASOPHIL # 0.1 10^3/ul (0.0-0.1); BASOPHILS % 0.7 % (0.0-2.0); EOSINOPHILS # 0.4 10^3/ul (0.0-0.5); EOSINOPHILS % 4.9 % (0.0-7.0); HEMATOCRIT 23.6 % (42.0-52.0); HEMOGLOBIN 7.6 g/dl (14.0-18.0); LYMPHOCYTES % 13.2 % (15.0-51.0); MEAN CORPUSCULAR HEMOGLOBIN 31.4 pg (29.0-33.0); MEAN CORPUSCULAR HGB CONC 32.2 g/dl (32.0-37.0); MEAN CORPUSCULAR VOLUME 97.5 fl (82.0-101.0); MEAN PLATELET VOLUME 10.3 fl (7.4-10.4); MONOCYTE # 1.1 10^3/ul (0.3-0.9); MONOCYTES % 15.1 % (0.0-11.0); NEUTROPHIL # 4.8 10^3/ul (1.6-7.5); NEUTROPHILS % 64.8 % (39.0-77.0); PLATELET COUNT 172 10^3/UL (140-415); RED BLOOD COUNT 2.42 10^6/ul (4.70-6.10); RED CELL DISTRIBUTION WIDTH 15.4 % (11.5-14.5); WHITE BLOOD COUNT 7.4 10^3/ul (4.8-10.8)
[2017-03-08 04:52] LABS: CALCIUM 8.7 mg/dl (8.4-10.2); CREATININE 1.51 mg/dl (0.61-1.24); MAGNESIUM 2.2 mg/dl (1.7-2.5); PHOSPHORUS 2.7 mg/dl (2.5-4.9); POTASSIUM 3.9 mmol/L (3.5-5.1)
[2017-03-08] MEDS: PROPOFOL 100 ML IV SCH ×4 (05:29→21:45)
[2017-03-08] MEDS: ARTIFICIAL TEARS 15 ML OPH BOTH EYES SCH ×2 (05:29→12:00)
[2017-03-08] MEDS: PANTOPRAZOLE 40 MG INJ IV SCH (05:29)
[2017-03-08] MEDS: OCULAR LUBRICANT 3.5 GM OPH OINT BOTH EYES SCH ×2 (05:29→12:00)
[2017-03-08] MEDS: INSULIN ASPART [NOVOLOG] 3 ML PEN SC SCH ×3 (05:48→20:41)
--- NOTE | 2017-03-08 07:04 | PN ---
Date/Time of Note Date/Time of Note DATE: 03/08/17 TIME: 07:03 Assessment/Plan Lines/Catheters IV Catheter Type (from Nrsg): PICC Line Urinary Cath still in place: Yes Assessment/Plan Chief Complaint/Hosp Course 1. Nonoliguric acute kidney injury with previous baseline creatinine 0.8 mg/dL. -Etiology of CROW secondary to ATN due to ischemic hypoperfusion shock. -Urinalysis was reviewed evidence of proteinuria, no evidence of active sediment -Renal function has been fluctuating but overall stable, -Holding Lasix in the setting of shock -Continue supportive care, renally dose all meds, avoid nephrotoxic Anemia. -Monitor H&H levels Mineral bone disorder -Monitor calcium phosphorus levels Replete phosphorus as needed Hypokalemia continue to monitor replete as needed Hypernatremia Improved Increase free water flushes 200 every 4 hours Monitor serial sodium levels Volume overload -Monitor I's and O's -Hold Lasix in the setting of shock Cardiac arrest. Patient status post hypothermia protocol -Follow-up with cardiology Ventilator dependent respiratory failure - ABGs reviewed, chest x-ray reviewed -Follow-up with pulmonary Pneumothorax -Status post chest tube placement, continue to monitor Septic shock -Cultures positive for bacteremia -Continue antibiotic regimen -Wean off pressors -Continue volume expansion with IV albumin -Follow-up with ID -Monitor closely Cardiomyopathy with ejection fraction 20% Continue current medical management Follow-up with our cardiology colleagues for further recommendations arrhythmia Continue medical management Problems: Subjective 24 Hr Interval Summary Free Text/Dictation Patient seen and examined Remains critically on pressure support No other events noted Good urinary output Exam/Review of Systems Vital Signs Vitals Vital Signs Date Time Temp Pulse Resp B/P Pulse Ox O2 Delivery O2 Flow Rate FiO2 03/08/17 06:45 62 26 99/62 100 03/08/17 06:00 97.8 Mechanical Ventilator 03/08/17 05:15 30 Intake and Output 03/07/17 03/07/17 03/08/17 15:00 23:00 07:00 Intake Total 913.57 ml 699.44 ml 870.47 ml Output Total 272 ml 381 ml 340 ml Balance 641.57 ml 318.44 ml 530.47 ml Exam HEENT: Head is normocephalic, NECK: Supple. HEART: Irregular LUNGS: Show diminished breath sounds at base. ABDOMEN: Soft, nontender to palpation without rebound or guarding. EXTREMITIES: Negative for clubbing, cyanosis. DERMATOLOGIC: No rashes. MUSCULOSKELETAL: No joint effusions, NEUROLOGIC: No change in exam. Results Result Diagram: 03/08/17 04103/08/17 0410 Results 24 hrs Laboratory Tests Test 03/07/17 11:30 03/07/17 17:38 03/07/17 23:23 03/08/17 04:10 Bedside Glucose 136 131 137 White Blood Count 7.4 Red Blood Count 2.42 L Hemoglobin 7.6 L Hematocrit 23.6 L Mean Corpuscular Volume 97.5 Mean Corpuscular Hemoglobin 31.4 Mean Corpuscular Hemoglobin Concent 32.2 Red Cell Distribution Width 15.4 H Platelet Count 172 Mean Platelet Volume 10.3 Neutrophils % 64.8 Lymphocytes % 13.2 L Monocytes % 15.1 H Eosinophils % 4.9 Basophils % 0.7 Nucleated Red Blood Cells % 0.0 Neutrophils # 4.8 Lymphocytes # 1.0 Monocytes # 1.1 H Eosinophils # 0.4 Basophils # 0.1 Nucleated Red Blood Cells # 0.0 Sodium Level 143 Potassium Level 3.9 Chloride Level 100 Carbon Dioxide Level 28 Anion Gap 19 H Blood Urea Nitrogen 37 H Creatinine 1.51 H Glucose Level 110 Calcium Level 8.7 Phosphorus Level 2.7 Magnesium Level 2.2 Test 03/08/17 05:47 Bedside Glucose 114 Medications Medications Current Medications Ondansetron HCl (Zofran Inj) 4 mg Q6H PRN IV NAUSEA AND/OR VOMITING; Start 02/14 at 16:00 Pantoprazole (Protonix Iv) 40 mg DAILY@06 IV Last administered on 03/08/17 05: 29; Admin Dose 40 MG; Start 02/15/17 at 06:00 Acetaminophen (Tylenol Supp) 650 mg Q4H PRN [place] TEMP > 37C; Start 02/14/17 at 18: 00 Acetaminophen (Tylenol Liquid) 650 mg Q4H PRN PO TEMP > 37C Last administered on 03/04/17 05:27; Admin Dose 650 MG; Start 02/14/17 at 18:00 Eye Lubricant (Akwa Oint) 1 applic Q6 BOTH EYES Last administered on 03/08/17 05:29; Admin Dose 1 APPLIC; Start 02/14/17 at 18:00 Eye Lubricant 2 drop 2 drop Q6 BOTH EYES Last administered on 03/08/17 05:29; Admin Dose 2 DROP; Start 02/14/17 at 18:00 Norepinephrine 16 mg/Dextrose 500 ml @ 0 mls/hr TITRATE IV Last administered on 03/08/17 03:18; Admin Dose 7.35 MLS/HR; Start 02/14/17 at 22:00 Phenylephrine HCl/ Dextrose (Fritz-Syneph/D5W) 500 ml @ 75 mls/hr TITRATE IV ; Start 02/16/17 at 03:30 Miscellaneous Information 1 ea NOTE XX ; Start 02/16/17 at 11:30 Glucose (Glutose) 15 gm Q15M PRN PO DECREASED GLUCOSE; Start 02/16/17 at 11:30 Glucose (Glutose) 22.5 gm Q15M PRN PO DECREASED GLUCOSE; Start 02/16/17 at 11:30 Dextrose (D50w Syringe) 25 ml Q15M PRN IV DECREASED GLUCOSE; Start 02/16/17 at 11:30 Dextrose (D50w Syringe) 50 ml Q15M PRN IV DECREASED GLUCOSE; Start 02/16/17 at 11:30 Glucagon (Glucagen) 1 mg Q15M PRN IM DECREASED GLUCOSE; Start 02/16/17 at 11:30 Glucose 15 gm 15 gm Q15M PRN BUCCAL DECREASED GLUCOSE; Start 02/16/17 at 11:30 Vasopressin/ Dextrose (Vasostrict/D5W) 60 ml @ 1.8 mls/hr Q12H IV ; Start at 13:00 Aspirin (Aspirin) 81 mg DAILY GTB Last administered on 03/07/17 08:08; Admin Dose 81 MG; Start 02/18/17 at 09:00 Atorvastatin Calcium (Lipitor) 20 mg HS NGT Last administered on 03/07/17 20: 55; Admin Dose 20 MG; Start 02/17/17 at 21:00 Insulin Aspart (Novolog Insulin Pen) NOVOLOG *MILD* ALGORI... Q6 SC Last administered on 03/06/17 05:32; Admin Dose 1 UNIT; Start 02/20/17 at 00:00 IV Flush (NS 10 ml) 10 ml PRN PRN IV IV PROTOCOL; Start 02/20/17 at 16:00 Lorazepam (Ativan) 1 mg Q6H PRN IV AGITATION/ANXIETY Last administered on 01:09; Admin Dose 1 MG; Start 02/20/17 at 21:40 Morphine Sulfate 4 mg 4 mg Q2 PRN IV Severe Pain Last administered on 08:08; Admin Dose 4 MG; Start 02/26/17 at 21:30 Cefepime HCl 50 ml @ 100 mls/hr Q12 IVPB Last administered on 03/07/17 20:55 ; Admin Dose 100 MLS/HR; Start 03/02/17 at 11:00 Propofol (Diprivan) 100 ml @ 2.46 mls/hr Q12H IV Last administered on 05:29; Admin Dose 9.84 MLS/HR; Start 03/02/17 at 12:00 Ferrous Sulfate (Feosol Liquid Cup) 300 mg BID NGT Last administered on 20:55; Admin Dose 300 MG; Start 03/03/17 at 21:00 JENSEN OLIVIER DO Mar 08, 2017 07:04
--- NOTE | 2017-03-08 08:11 | PN ---
Date/Time of Note Date/Time of Note DATE: 03/08/17 TIME: 08:10 Assessment/Plan VTE Prophylaxis VTE Prophylaxis Intervention: SCD's Lines/Catheters [facility] P[facility] Line Central line still needed: Yes Urinary Cath still in place: Yes Reason Cath still needed: other (indicate) Assessment/Plan Chief Complaint/Hosp Course 1. Status post cardiac arrest secondary to ventricular fibrillation. Status post CPR and ACLS protocol with return of spontaneous circulation. Status post hypothermia protocol. Echocardiogram showing severe left ventricular systolic dysfunction. 2. Ventilator dependent respiratory failure secondary to cardiac arrest. The patient was extubated and reintubated on 03/02/2017 because of worsening respiratory distress. 3. Left-sided rib fractures and barotrauma with resultant pneumothorax secondary to repeated chest compressions. Status post chest tube placement. 4. Sepsis with multifocal pneumonia and coagulase-negative Staphylococcus bacteremia. Continue antibiotics. 5. Acute on chronic kidney disease. The patient being followed by nephrology. 6. Septic shock. The patient on pressors. 7. Ischemic cardiomyopathy with ejection fraction of 20%. Cardiology following. 8. Normocytic, normochromic anemia. Underlying iron deficiency. Continue iron supplements. 9. Fluids, electrolytes, and nutrition. IV fluids as per nephrology. Tube feedings. 10. DVT prophylaxis. Bilateral sequential compression devices. 11. Gastrointestinal prophylaxis. Proton pump inhibitors. 12. Plan. Continue current care. Status post bioethics meeting on 03/06/2017. The committee decided on trying to find the patient's daughter until 2016. If unable to locate the patient's daughter by 03/10/2017, the committee will decide further plan of care including trach and PEG versus compassionate extubation. Case discussed with Dr. Laughlin. Critical care time: 35 minutes. Problems: Subjective 24 Hr Interval Summary Free Text/Dictation No changes in status. Exam/Review of Systems Vital Signs Vitals Vital Signs Date Time Temp Pulse Resp B/P Pulse Ox O2 Delivery O2 Flow Rate FiO2 03/08/17 06:45 62 26 99/62 100 03/08/17 06:00 97.8 Mechanical Ventilator 03/08/17 05:15 30 Intake and Output 03/07/17 03/07/17 03/08/17 15:00 23:00 07:00 Intake Total 913.57 ml 699.44 ml 870.47 ml Output Total 272 ml 381 ml 340 ml Balance 641.57 ml 318.44 ml 530.47 ml Exam General: Adequately build 76 year-old male lying in bed in no apparent distress. HEENT: Normocephalic, atraumatic. Eyes: Anicteric sclerae, conjunctivae clear. ENT: Nasal septum midline, oral mucosa moist. Neck supple, no JVD noticed. Respiratory: Bilaterally finished breath sounds. No use of accessory muscles of respiration. ETT connected to mechanical ventilator. Chest tube to Pleur-evac. Cardiovascular: S1, S2 heard. No murmurs or gallops. Abdomen: Soft, nontender, and nondistended. Bowel sounds positive in all 4 quadrants. Genitourinary: Patel catheter in place. Extremities: No cyanosis, no clubbing, no edema. Peripheral pulses palpable. Neurologic: The patient is sedated. Skin: Normal skin turgor. No skin rashes. Results Result Diagram: 03/08/17 0410 03/08/17 0410 Results 24 hrs Laboratory Tests Test 03/07/17 11:30 03/07/17 17:38 03/07/17 23:23 03/08/17 04:10 Bedside Glucose 136 131 137 White Blood Count 7.4 Red Blood Count 2.42 L Hemoglobin 7.6 L Hematocrit 23.6 L Mean Corpuscular Volume 97.5 Mean Corpuscular Hemoglobin 31.4 Mean Corpuscular Hemoglobin Concent 32.2 Red Cell Distribution Width 15.4 H Platelet Count 172 Mean Platelet Volume 10.3 Neutrophils % 64.8 Lymphocytes % 13.2 L Monocytes % 15.1 H Eosinophils % 4.9 Basophils % 0.7 Nucleated Red Blood Cells % 0.0 Neutrophils # 4.8 Lymphocytes # 1.0 Monocytes # 1.1 H Eosinophils # 0.4 Basophils # 0.1 Nucleated Red Blood Cells # 0.0 Sodium Level 143 Potassium Level 3.9 Chloride Level 100 Carbon Dioxide Level 28 Anion Gap 19 H Blood Urea Nitrogen 37 H Creatinine 1.51 H Glucose Level 110 Calcium Level 8.7 Phosphorus Level 2.7 Magnesium Level 2.2 Test 03/08/17 05:47 Bedside Glucose 114 Medications Medications Current Medications Ondansetron HCl (Zofran Inj) 4 mg Q6H PRN IV NAUSEA AND/OR VOMITING; Start 02/14 at 16:00 Pantoprazole (Protonix Iv) 40 mg DAILY@06 IV Last administered on 03/08/17 05: 29; Admin Dose 40 MG; Start 02/15/17 at 06:00 Acetaminophen (Tylenol Supp) 650 mg Q4H PRN [place] TEMP > 37C; Start 02/14/17 at 18: 00 Acetaminophen (Tylenol Liquid) 650 mg Q4H PRN PO TEMP > 37C Last administered on 03/04/17 05:27; Admin Dose 650 MG; Start 02/14/17 at 18:00 Eye Lubricant (Akwa Oint) 1 applic Q6 BOTH EYES Last administered on 03/08/17 05:29; Admin Dose 1 APPLIC; Start 02/14/17 at 18:00 Eye Lubricant 2 drop 2 drop Q6 BOTH EYES Last administered on 03/08/17 05:29; Admin Dose 2 DROP; Start 02/14/17 at 18:00 Norepinephrine 16 mg/Dextrose 500 ml @ 0 mls/hr TITRATE IV Last administered on 03/08/17 03:18; Admin Dose 7.35 MLS/HR; Start 02/14/17 at 22:00 Phenylephrine HCl/ Dextrose (Fritz-Syneph/D5W) 500 ml @ 75 mls/hr TITRATE IV ; Start 02/16/17 at 03:30 Miscellaneous Information 1 ea NOTE XX ; Start 02/16/17 at 11:30 Glucose (Glutose) 15 gm Q15M PRN PO DECREASED GLUCOSE; Start 02/16/17 at 11:30 Glucose (Glutose) 22.5 gm Q15M PRN PO DECREASED GLUCOSE; Start 02/16/17 at 11:30 Dextrose (D50w Syringe) 25 ml Q15M PRN IV DECREASED GLUCOSE; Start 02/16/17 at 11:30 Dextrose (D50w Syringe) 50 ml Q15M PRN IV DECREASED GLUCOSE; Start 02/16/17 at 11:30 Glucagon (Glucagen) 1 mg Q15M PRN IM DECREASED GLUCOSE; Start 02/16/17 at 11:30 Glucose 15 gm 15 gm Q15M PRN BUCCAL DECREASED GLUCOSE; Start 02/16/17 at 11:30 Vasopressin/ Dextrose (Vasostrict/D5W) 60 ml @ 1.8 mls/hr Q12H IV ; Start at 13:00 Aspirin (Aspirin) 81 mg DAILY GTB Last administered on 03/07/17 08:08; Admin Dose 81 MG; Start 02/18/17 at 09:00 Atorvastatin Calcium (Lipitor) 20 mg HS NGT Last administered on 03/07/17 20: 55; Admin Dose 20 MG; Start 02/17/17 at 21:00 Insulin Aspart (Novolog Insulin Pen) NOVOLOG *MILD* ALGORI... Q6 SC Last administered on 03/06/17 05:32; Admin Dose 1 UNIT; Start 02/20/17 at 00:00 IV Flush (NS 10 ml) 10 ml PRN PRN IV IV PROTOCOL; Start 02/20/17 at 16:00 Lorazepam (Ativan) 1 mg Q6H PRN IV AGITATION/ANXIETY Last administered on 01:09; Admin Dose 1 MG; Start 02/20/17 at 21:40 Morphine Sulfate 4 mg 4 mg Q2 PRN IV Severe Pain Last administered on 08:08; Admin Dose 4 MG; Start 02/26/17 at 21:30 Cefepime HCl 50 ml @ 100 mls/hr Q12 IVPB Last administered on 03/07/17 20:55 ; Admin Dose 100 MLS/HR; Start 03/02/17 at 11:00 Propofol (Diprivan) 100 ml @ 2.46 mls/hr Q12H IV Last administered on 05:29; Admin Dose 9.84 MLS/HR; Start 03/02/17 at 12:00 Ferrous Sulfate 300 mg 300 mg BID NGT Last administered on 03/07/17 20:55; Admin Dose 300 MG; Start 03/03/17 at 21:00 Albumin Human (Albumin Human 25%) 100 ml @ 100 mls/hr Q8H IV ; Start 03/08/17 at 07:30; Stop 03/09/17 at 00:29 MADDIE ASHFORD NP Mar 08, 2017 08:11
--- NOTE | 2017-03-08 08:39 | CONS ---
Date/Time of Note Date/Time of Note DATE: 03/08/17 TIME: 08:37 Assessment/Plan Assessment/Plan Additional Assessment/Plan Ventilator setting; AC of 26, tidal volume 500, PEEP of 5, 30% FiO2. Patient currently on propofol at 20 mics per kilogram per minute, Levophed at 4 mics per minute. Assessment and recommendations; 1. Patient admitted with cardiac arrest status post CPR was extubated and had to be reintubated for worsening respiratory status. 2. Severe bilateral pneumonia. 3. Renal insufficiency. 4. Anemia. 5. Patient appropriately made a DNR status on account of multiple comorbidities. 6. Status post barotrauma to the lung doing CPR. Continue current treatment. Will obtain a chest x-ray. Patient likely will need to have a tracheostomy performed. Prognosis is poor. Consultation Date/Type/Reason Admit Date/Time Feb 14, 2017 at 16:02 Type of Consultation: Pulmonary/critical care Referring Provider: GUILHERME YATES 24 HR Interval Summary Free Text/Dictation Patient condition remains critical. Still remains fully ventilator dependent. General exam; elderly male, currently sedated with propofol drip. In no distress. Exam/Review of Systems Vital Signs Vitals Vital Signs Date Time Temp Pulse Resp B/P Pulse Ox O2 Delivery O2 Flow Rate FiO2 03/08/17 06:45 62 26 99/62 100 03/08/17 06:00 97.8 Mechanical Ventilator 03/08/17 05:15 30 Intake and Output 03/07/17 03/07/17 03/08/17 15:00 23:00 07:00 Intake Total 913.57 ml 699.44 ml 870.47 ml Output Total 272 ml 381 ml 340 ml Balance 641.57 ml 318.44 ml 530.47 ml Exam HEENT exam; supple neck, no JVD. No lymphadenopathy. Midline trachea. No thyromegaly. Patient has multiple carious teeth. Pupils are midsize and reactive to light bilaterally. Orally intubated. Chest exam; diminished breath sounds bilaterally. No added sound. S1-S2 audible, no murmurs. Regular rhythm. Abdomen exam; soft, nondistended. No organomegaly. Bowel sounds audible. Extremity exam; trace peripheral edema. 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 Results Result Diagram: 03/08/17 0410 03/08/17 041 Results 24 hrs Laboratory Tests Test 03/07/17 11:30 03/07/17 17:38 03/07/17 23:23 03/08/17 04:10 Bedside Glucose 136 131 137 White Blood Count 7.4 Red Blood Count 2.42 L Hemoglobin 7.6 L Hematocrit 23.6 L Mean Corpuscular Volume 97.5 Mean Corpuscular Hemoglobin 31.4 Mean Corpuscular Hemoglobin Concent 32.2 Red Cell Distribution Width 15.4 H Platelet Count 172 Mean Platelet Volume 10.3 Neutrophils % 64.8 Lymphocytes % 13.2 L Monocytes % 15.1 H Eosinophils % 4.9 Basophils % 0.7 Nucleated Red Blood Cells % 0.0 Neutrophils # 4.8 Lymphocytes # 1.0 Monocytes # 1.1 H Eosinophils # 0.4 Basophils # 0.1 Nucleated Red Blood Cells # 0.0 Sodium Level 143 Potassium Level 3.9 Chloride Level 100 Carbon Dioxide Level 28 Anion Gap 19 H Blood Urea Nitrogen 37 H Creatinine 1.51 H Glucose Level 110 Calcium Level 8.7 Phosphorus Level 2.7 Magnesium Level 2.2 Test 03/08/17 05:47 Bedside Glucose 114 Medications Medications Current Medications Ondansetron HCl (Zofran Inj) 4 mg Q6H PRN IV NAUSEA AND/OR VOMITING; Start 02/14 at 16:00 Pantoprazole (Protonix Iv) 40 mg DAILY@06 IV Last administered on 03/08/17 05: 29; Admin Dose 40 MG; Start 02/15/17 at 06:00 Acetaminophen (Tylenol Supp) 650 mg Q4H PRN IN TEMP > 37C; Start 02/14/17 at 18: 00 Acetaminophen (Tylenol Liquid) 650 mg Q4H PRN PO TEMP > 37C Last administered on 03/04/17 05:27; Admin Dose 650 MG; Start 02/14/17 at 18:00 Eye Lubricant (Akwa Oint) 1 applic Q6 BOTH EYES Last administered on 03/08/17 05:29; Admin Dose 1 APPLIC; Start 02/14/17 at 18:00 Eye Lubricant 2 drop 2 drop Q6 BOTH EYES Last administered on 03/08/17 05:29; Admin Dose 2 DROP; Start 02/14/17 at 18:00 Norepinephrine 16 mg/Dextrose 500 ml @ 0 mls/hr TITRATE IV Last administered on 03/08/17 03:18; Admin Dose 7.35 MLS/HR; Start 02/14/17 at 22:00 Phenylephrine HCl/ Dextrose (Fritz-Syneph/D5W) 500 ml @ 75 mls/hr TITRATE IV ; Start 02/16/17 at 03:30 Miscellaneous Information 1 ea NOTE XX ; Start 02/16/17 at 11:30 Glucose (Glutose) 15 gm Q15M PRN PO DECREASED GLUCOSE; Start 02/16/17 at 11:30 Glucose (Glutose) 22.5 gm Q15M PRN PO DECREASED GLUCOSE; Start 02/16/17 at 11:30 Dextrose (D50w Syringe) 25 ml Q15M PRN IV DECREASED GLUCOSE; Start 02/16/17 at 11:30 Dextrose (D50w Syringe) 50 ml Q15M PRN IV DECREASED GLUCOSE; Start 02/16/17 at 11:30 Glucagon (Glucagen) 1 mg Q15M PRN IM DECREASED GLUCOSE; Start 02/16/17 at 11:30 Glucose 15 gm 15 gm Q15M PRN BUCCAL DECREASED GLUCOSE; Start 02/16/17 at 11:30 Vasopressin/ Dextrose (Vasostrict/D5W) 60 ml @ 1.8 mls/hr Q12H IV ; Start at 13:00 Aspirin (Aspirin) 81 mg DAILY GTB Last administered on 03/07/17 08:08; Admin Dose 81 MG; Start 02/18/17 at 09:00 Atorvastatin Calcium (Lipitor) 20 mg HS NGT Last administered on 03/07/17 20: 55; Admin Dose 20 MG; Start 02/17/17 at 21:00 Insulin Aspart (Novolog Insulin Pen) NOVOLOG *MILD* ALGORI... Q6 SC Last administered on 03/06/17 05:32; Admin Dose 1 UNIT; Start 02/20/17 at 00:00 IV Flush (NS 10 ml) 10 ml PRN PRN IV IV PROTOCOL; Start 02/20/17 at 16:00 Lorazepam (Ativan) 1 mg Q6H PRN IV AGITATION/ANXIETY Last administered on 01:09; Admin Dose 1 MG; Start 02/20/17 at 21:40 Morphine Sulfate 4 mg 4 mg Q2 PRN IV Severe Pain Last administered on 08:08; Admin Dose 4 MG; Start 02/26/17 at 21:30 Cefepime HCl 50 ml @ 100 mls/hr Q12 IVPB Last administered on 03/07/17 20:55 ; Admin Dose 100 MLS/HR; Start 03/02/17 at 11:00 Propofol (Diprivan) 100 ml @ 2.46 mls/hr Q12H IV Last administered on 05:29; Admin Dose 9.84 MLS/HR; Start 03/02/17 at 12:00 Ferrous Sulfate 300 mg 300 mg BID NGT Last administered on 03/07/17 20:55; Admin Dose 300 MG; Start 03/03/17 at 21:00 Albumin Human (Albumin Human 25%) 100 ml @ 100 mls/hr Q8H IV ; Start 03/08/17 at 07:30; Stop 03/09/17 at 00:29 MARCELINO POZO Mar 08, 2017 08:39
--- NOTE | 2017-03-08 09:09 | PN ---
Date/Time of Note Date/Time of Note DATE: 03/08/17 TIME: 09:08 Assessment/Plan VTE Prophylaxis VTE Prophylaxis Intervention: SCD's Lines/Catheters IV Catheter Type (from Nrs): PICC Line Central line still needed: No Urinary Cath still in place: Yes Reason Cath still needed: urinary retention Assessment/Plan Assessment/Plan Cardiopulmonary arrest Septic shock Vent dependent respiratory failure, reintubated Cardiomyopathy with ejection fraction 20% Non-ST elevation DE Acute kidney injury Acute blood loss anemia Paroxysmal atrial fibrillation -Patient status post hypothermia protocol. -Continue aspirin and statin therapy, no beta-naida secondary to bradycardia, no BERTHA inhibitor secondary to acute kidney injury. Titrate IV pressor to maintain SBP greater than 90 and or map above 60. -Diuretics as per our nephrology colleagues. Subjective 24 Hr Interval Summary Free Text/Dictation The patient with no change Exam/Review of Systems Vital Signs Vitals Vital Signs Date Time Temp Pulse Resp B/P Pulse Ox O2 Delivery O2 Flow Rate FiO2 03/08/17 08:00 67 03/08/17 06:45 26 99/62 100 03/08/17 06:00 97.8 Mechanical Ventilator 03/08/17 05:15 30 Intake and Output 03/07/17 03/07/17 03/08/17 15:00 23:00 07:00 Intake Total 913.57 ml 699.44 ml 870.47 ml Output Total 272 ml 381 ml 340 ml Balance 641.57 ml 318.44 ml 530.47 ml Results Result Diagram: 03/08/17 0410 03/08/17 0410 Results 24 hrs Laboratory Tests Test 03/07/17 11:30 03/07/17 17:38 03/07/17 23:23 03/08/17 04:10 Bedside Glucose 136 131 137 White Blood Count 7.4 Red Blood Count 2.42 L Hemoglobin 7.6 L Hematocrit 23.6 L Mean Corpuscular Volume 97.5 Mean Corpuscular Hemoglobin 31.4 Mean Corpuscular Hemoglobin Concent 32.2 Red Cell Distribution Width 15.4 H Platelet Count 172 Mean Platelet Volume 10.3 Neutrophils % 64.8 Lymphocytes % 13.2 L Monocytes % 15.1 H Eosinophils % 4.9 Basophils % 0.7 Nucleated Red Blood Cells % 0.0 Neutrophils # 4.8 Lymphocytes # 1.0 Monocytes # 1.1 H Eosinophils # 0.4 Basophils # 0.1 Nucleated Red Blood Cells # 0.0 Sodium Level 143 Potassium Level 3.9 Chloride Level 100 Carbon Dioxide Level 28 Anion Gap 19 H Blood Urea Nitrogen 37 H Creatinine 1.51 H Glucose Level 110 Calcium Level 8.7 Phosphorus Level 2.7 Magnesium Level 2.2 Test 03/08/17 05:47 Bedside Glucose 114 Medications Medications Current Medications Ondansetron HCl (Zofran Inj) 4 mg Q6H PRN IV NAUSEA AND/OR VOMITING; Start 02/14 at 16:00 Pantoprazole (Protonix Iv) 40 mg DAILY@06 IV Last administered on 03/08/17 05: 29; Admin Dose 40 MG; Start 02/15/17 at 06:00 Acetaminophen (Tylenol Supp) 650 mg Q4H PRN [place] TEMP > 37C; Start 02/14/17 at 18: 00 Acetaminophen (Tylenol Liquid) 650 mg Q4H PRN PO TEMP > 37C Last administered on 03/04/17 05:27; Admin Dose 650 MG; Start 02/14/17 at 18:00 Eye Lubricant (Akwa Oint) 1 applic Q6 BOTH EYES Last administered on 03/08/17 05:29; Admin Dose 1 APPLIC; Start 02/14/17 at 18:00 Eye Lubricant 2 drop 2 drop Q6 BOTH EYES Last administered on 03/08/17 05:29; Admin Dose 2 DROP; Start 02/14/17 at 18:00 Norepinephrine 16 mg/Dextrose 500 ml @ 0 mls/hr TITRATE IV Last administered on 03/08/17 03:18; Admin Dose 7.35 MLS/HR; Start 02/14/17 at 22:00 Phenylephrine HCl/ Dextrose (Fritz-Syneph/D5W) 500 ml @ 75 mls/hr TITRATE IV ; Start 02/16/17 at 03:30 Miscellaneous Information 1 ea NOTE XX ; Start 02/16/17 at 11:30 Glucose (Glutose) 15 gm Q15M PRN PO DECREASED GLUCOSE; Start 02/16/17 at 11:30 Glucose (Glutose) 22.5 gm Q15M PRN PO DECREASED GLUCOSE; Start 02/16/17 at 11:30 Dextrose (D50w Syringe) 25 ml Q15M PRN IV DECREASED GLUCOSE; Start 02/16/17 at 11:30 Dextrose (D50w Syringe) 50 ml Q15M PRN IV DECREASED GLUCOSE; Start 02/16/17 at 11:30 Glucagon (Glucagen) 1 mg Q15M PRN IM DECREASED GLUCOSE; Start 02/16/17 at 11:30 Glucose 15 gm 15 gm Q15M PRN BUCCAL DECREASED GLUCOSE; Start 02/16/17 at 11:30 Vasopressin/ Dextrose (Vasostrict/D5W) 60 ml @ 1.8 mls/hr Q12H IV ; Start at 13:00 Aspirin (Aspirin) 81 mg DAILY GTB Last administered on 03/07/17 08:08; Admin Dose 81 MG; Start 02/18/17 at 09:00 Atorvastatin Calcium (Lipitor) 20 mg HS NGT Last administered on 03/07/17 20: 55; Admin Dose 20 MG; Start 02/17/17 at 21:00 Insulin Aspart (Novolog Insulin Pen) NOVOLOG *MILD* ALGORI... Q6 SC Last administered on 03/06/17 05:32; Admin Dose 1 UNIT; Start 02/20/17 at 00:00 IV Flush (NS 10 ml) 10 ml PRN PRN IV IV PROTOCOL; Start 02/20/17 at 16:00 Lorazepam (Ativan) 1 mg Q6H PRN IV AGITATION/ANXIETY Last administered on 01:09; Admin Dose 1 MG; Start 02/20/17 at 21:40 Morphine Sulfate 4 mg 4 mg Q2 PRN IV Severe Pain Last administered on 08:08; Admin Dose 4 MG; Start 02/26/17 at 21:30 Cefepime HCl 50 ml @ 100 mls/hr Q12 IVPB Last administered on 03/07/17 20:55 ; Admin Dose 100 MLS/HR; Start 03/02/17 at 11:00 Propofol (Diprivan) 100 ml @ 2.46 mls/hr Q12H IV Last administered on 05:29; Admin Dose 9.84 MLS/HR; Start 03/02/17 at 12:00 Ferrous Sulfate 300 mg 300 mg BID NGT Last administered on 03/07/17 20:55; Admin Dose 300 MG; Start 03/03/17 at 21:00 Albumin Human (Albumin Human 25%) 100 ml @ 100 mls/hr Q8H IV ; Start 03/08/17 at 07:30; Stop 03/09/17 at 00:29 PRISCILA GANDARA MD Mar 08, 2017 09:09
[2017-03-08] MEDS: FERROUS SULFATE 60 MG/ML 5ML CUP NGT SCH ×2 (10:06→20:39)
[2017-03-08] MEDS: ASPIRIN 81 MG TAB GTB SCH (10:06)
[2017-03-08] MEDS: ALBUMIN HUMAN 25% 100 ML IV SCH ×3 (10:06→23:38)
[2017-03-08] MEDS: CEFEPIME 1GM/50 ML (PMX) 50 ML IVPB SCH ×2 (10:06→20:39)
--- NOTE | 2017-03-08 10:32 | CONS ---
Date/Time of Note Date/Time of Note DATE: 03/08/17 TIME: 10:26 Assessment/Plan Assessment/Plan Additional Assessment/Plan Bioethics consultation was done on March 07. Recommendations at that time was to attempt once again to contact patient's daughter prior to proceeding to do a PEG and trach. In the event patient becomes critically ill over the weekend to have a phone conference with members of the Bioethics Committee discuss comfort measures but only if patient becomes hemodynamically compromised with impending . Patient's CODE STATUS was changed to DO NOT RESUSCITATE when family members could not be found during the period of time when he required reintubation and his clinical condition was much more critical. This clinical decision was made by myself and . However at this time he is in need of PEG and trach or decision by family members not to do so. If family members cannot be contacted Bioethics Committee will make further recommendations. Consultation Date/Type/Reason Admit Date/Time Feb 14, 2017 at 16:02 Initial Consult Date Postdated note for date of visit March 07 Type of Consultation: Palliative care Referring Provider: GUILHERME YATES Exam/Review of Systems Vital Signs Vitals Vital Signs Date Time Temp Pulse Resp B/P Pulse Ox O2 Delivery O2 Flow Rate FiO2 03/08/17 08:00 67 03/08/17 06:45 26 99/62 100 03/08/17 06:00 97.8 Mechanical Ventilator 03/08/17 05:15 30 Intake and Output 03/07/17 03/07/17 03/08/17 15:00 23:00 07:00 Intake Total 913.57 ml 699.44 ml 870.47 ml Output Total 272 ml 381 ml 340 ml Balance 641.57 ml 318.44 ml 530.47 ml Results Result Diagram: 03/08/17 0410 03/08/17 0410 Results 24 hrs Laboratory Tests Test 03/07/17 11:30 03/07/17 17:38 03/07/17 23:23 03/08/17 04:10 Bedside Glucose 136 131 137 White Blood Count 7.4 Red Blood Count 2.42 L Hemoglobin 7.6 L Hematocrit 23.6 L Mean Corpuscular Volume 97.5 Mean Corpuscular Hemoglobin 31.4 Mean Corpuscular Hemoglobin Concent 32.2 Red Cell Distribution Width 15.4 H Platelet Count 172 Mean Platelet Volume 10.3 Neutrophils % 64.8 Lymphocytes % 13.2 L Monocytes % 15.1 H Eosinophils % 4.9 Basophils % 0.7 Nucleated Red Blood Cells % 0.0 Neutrophils # 4.8 Lymphocytes # 1.0 Monocytes # 1.1 H Eosinophils # 0.4 Basophils # 0.1 Nucleated Red Blood Cells # 0.0 Sodium Level 143 Potassium Level 3.9 Chloride Level 100 Carbon Dioxide Level 28 Anion Gap 19 H Blood Urea Nitrogen 37 H Creatinine 1.51 H Glucose Level 110 Calcium Level 8.7 Phosphorus Level 2.7 Magnesium Level 2.2 Test 03/08/17 05:47 Bedside Glucose 114 Medications Medications Current Medications Ondansetron HCl (Zofran Inj) 4 mg Q6H PRN IV NAUSEA AND/OR VOMITING; Start 02/14 at 16:00 Pantoprazole (Protonix Iv) 40 mg DAILY@06 IV Last administered on 03/08/17 05: 29; Admin Dose 40 MG; Start 02/15/17 at 06:00 Acetaminophen (Tylenol Supp) 650 mg Q4H PRN [place] TEMP > 37C; Start 02/14/17 at 18: 00 Acetaminophen (Tylenol Liquid) 650 mg Q4H PRN PO TEMP > 37C Last administered on 03/04/17 05:27; Admin Dose 650 MG; Start 02/14/17 at 18:00 Eye Lubricant (Akwa Oint) 1 applic Q6 BOTH EYES Last administered on 03/08/17 05:29; Admin Dose 1 APPLIC; Start 02/14/17 at 18:00 Eye Lubricant 2 drop 2 drop Q6 BOTH EYES Last administered on 03/08/17 05:29; Admin Dose 2 DROP; Start 02/14/17 at 18:00 Norepinephrine 16 mg/Dextrose 500 ml @ 0 mls/hr TITRATE IV Last administered on 03/08/17 03:18; Admin Dose 7.35 MLS/HR; Start 02/14/17 at 22:00 Phenylephrine HCl/ Dextrose (Fritz-Syneph/D5W) 500 ml @ 75 mls/hr TITRATE IV ; Start 02/16/17 at 03:30 Miscellaneous Information 1 ea NOTE XX ; Start 02/16/17 at 11:30 Glucose (Glutose) 15 gm Q15M PRN PO DECREASED GLUCOSE; Start 02/16/17 at 11:30 Glucose (Glutose) 22.5 gm Q15M PRN PO DECREASED GLUCOSE; Start 02/16/17 at 11:30 Dextrose (D50w Syringe) 25 ml Q15M PRN IV DECREASED GLUCOSE; Start 02/16/17 at 11:30 Dextrose (D50w Syringe) 50 ml Q15M PRN IV DECREASED GLUCOSE; Start 02/16/17 at 11:30 Glucagon (Glucagen) 1 mg Q15M PRN IM DECREASED GLUCOSE; Start 02/16/17 at 11:30 Glucose 15 gm 15 gm Q15M PRN BUCCAL DECREASED GLUCOSE; Start 02/16/17 at 11:30 Vasopressin/ Dextrose (Vasostrict/D5W) 60 ml @ 1.8 mls/hr Q12H IV ; Start at 13:00 Aspirin (Aspirin) 81 mg DAILY GTB Last administered on 03/08/17 10:06; Admin Dose 81 MG; Start 02/18/17 at 09:00 Atorvastatin Calcium (Lipitor) 20 mg HS NGT Last administered on 03/07/17 20: 55; Admin Dose 20 MG; Start 02/17/17 at 21:00 Insulin Aspart (Novolog Insulin Pen) NOVOLOG *MILD* ALGORI... Q6 SC Last administered on 03/06/17 05:32; Admin Dose 1 UNIT; Start 02/20/17 at 00:00 IV Flush (NS 10 ml) 10 ml PRN PRN IV IV PROTOCOL; Start 02/20/17 at 16:00 Lorazepam (Ativan) 1 mg Q6H PRN IV AGITATION/ANXIETY Last administered on 01:09; Admin Dose 1 MG; Start 02/20/17 at 21:40 Morphine Sulfate 4 mg 4 mg Q2 PRN IV Severe Pain Last administered on 08:08; Admin Dose 4 MG; Start 02/26/17 at 21:30 Cefepime HCl 50 ml @ 100 mls/hr Q12 IVPB Last administered on 03/08/17 10:06 ; Admin Dose 100 MLS/HR; Start 03/02/17 at 11:00 Propofol (Diprivan) 100 ml @ 2.46 mls/hr Q12H IV Last administered on 05:29; Admin Dose 9.84 MLS/HR; Start 03/02/17 at 12:00 Ferrous Sulfate 300 mg 300 mg BID NGT Last administered on 03/08/17 10:06; Admin Dose 300 MG; Start 03/03/17 at 21:00 Albumin Human (Albumin Human 25%) 100 ml @ 100 mls/hr Q8H IV Last administered on 03/08/17 10:06; Admin Dose 100 MLS/HR; Start 03/08/17 at 07:30 ; Stop 03/09/17 at 00:29 SPARKLE RAE Mar 08, 2017 10:32
--- NOTE | 2017-03-08 13:17 | RADRPT ---
PROCEDURE: XR Chest. CLINICAL INDICATION: Shortness of breath. TECHNIQUE: Single frontal view. COMPARISON: 03/04/2017. FINDINGS: The endotracheal tube, nasogastric tube, left chest tube, and left arm PICC line remain in satisfact ory position. Patchy bilateral pulmonary air space disease consistent with multifocal pneumonia or pulmonary edema is unchanged. The heart size is normal. There are small bilateral pleural effusions. There is no pneumothorax. IMPRESSION: 1. No significant change from 03/04/2017. RPTAT: QQ .Guillermo Palafox MD, MD Date Time Electronically viewed and signed by .Guillermo Palafox MD, MD on 03/08/2017 13:16 .R/
--- NOTE | 2017-03-08 19:39 | PN ---
Date/Time of Note Date/Time of Note DATE: 03/08/17 TIME: 19:38 Assessment/Plan Lines/Catheters IV Catheter Type (from Nrsg): PICC Line Patel in Place (from Nrsg): Yes Assessment/Plan Chief Complaint/Hosp Course Resp failure tracheostomy cancelled per bioethics Problems: Subjective 24 Hr Interval Summary Constitutional: improved Pain Control: mild Exam/Review of Systems Vital Signs Vitals Vital Signs Date Time Temp Pulse Resp B/P Pulse Ox O2 Delivery O2 Flow Rate FiO2 03/08/17 18:45 56 18 94/62 100 03/08/17 18:00 Mechanical Ventilator 03/08/17 17:10 30 03/08/17 16:00 98.5 Intake and Output 03/07/17 03/07/17 03/08/17 15:00 23:00 07:00 Intake Total 913.57 ml 699.44 ml 937.66 ml Output Total 272 ml 381 ml 398 ml Balance 641.57 ml 318.44 ml 539.66 ml Exam ENMT: mucosa pink and moist, nl external ears & nose, nl lips & teeth, nl nasal mucosa & septum Neck: non-tender, supple Respiratory: clear to auscultation, normal air movement Cardiovascular: nl pulses, regular rate and rhythm Gastrointestinal: nl liver, spleen, non-tender, soft Results Result Diagram: 03/08/1740903/08/17409 GUANAKITO THURMAN MD Mar 08, 2017 19:39
[2017-03-08] MEDS: ATORVASTATIN 20 MG TAB NGT SCH (20:39)
[2017-03-09] VITALS (105 sets, daily range): BP systolic 83–135; BP diastolic 53–83; PULSE 59–103; RESP 8–38
[2017-03-09] MEDS: VASOPRESSIN 60 UNIT in DEXTROSE 5% 57 ML IV SCH ×2 (01:00→11:53)
[2017-03-09 04:59] LABS: BASOPHIL # 0.1 10^3/ul (0.0-0.1); BASOPHILS % 0.6 % (0.0-2.0); EOSINOPHILS # 0.3 10^3/ul (0.0-0.5); EOSINOPHILS % 3.1 % (0.0-7.0); HEMATOCRIT 25.7 % (42.0-52.0); HEMOGLOBIN 8.1 g/dl (14.0-18.0); LYMPHOCYTES # 1.1 10^3/ul (0.8-2.9); LYMPHOCYTES % 13.6 % (15.0-51.0); MEAN CORPUSCULAR HEMOGLOBIN 30.8 pg (29.0-33.0); MEAN CORPUSCULAR HGB CONC 31.5 g/dl (32.0-37.0); MEAN CORPUSCULAR VOLUME 97.7 fl (82.0-101.0); MEAN PLATELET VOLUME 10.7 fl (7.4-10.4); MONOCYTES % 12.7 % (0.0-11.0); NEUTROPHIL # 5.4 10^3/ul (1.6-7.5); NEUTROPHILS % 67.7 % (39.0-77.0); PLATELET COUNT 200 10^3/UL (140-415); RED BLOOD COUNT 2.63 10^6/ul (4.70-6.10); RED CELL DISTRIBUTION WIDTH 15.3 % (11.5-14.5); WHITE BLOOD COUNT 7.9 10^3/ul (4.8-10.8)
[2017-03-09 05:20] LABS: CALCIUM 9.2 mg/dl (8.4-10.2); CREATININE 1.45 mg/dl (0.61-1.24); MAGNESIUM 2.2 mg/dl (1.7-2.5); PHOSPHORUS 2.8 mg/dl (2.5-4.9); POTASSIUM 4.3 mmol/L (3.5-5.1)
[2017-03-09] MEDS: PANTOPRAZOLE 40 MG INJ IV SCH (06:11)
--- NOTE | 2017-03-09 07:05 | PN ---
Date/Time of Note Date/Time of Note DATE: 03/09/17 TIME: 07:05 Assessment/Plan Lines/Catheters IV Catheter Type (from Nrsg): PICC Line Urinary Cath still in place: Yes Assessment/Plan Chief Complaint/Hosp Course 1. Nonoliguric acute kidney injury with previous baseline creatinine 0.8 mg/dL. -Etiology of CROW secondary to ATN due to ischemic hypoperfusion shock. -Urinalysis was reviewed evidence of proteinuria, no evidence of active sediment -Renal function has been fluctuating but overall stable, -Holding Lasix in the setting of shock -Continue supportive care, renally dose all meds, avoid nephrotoxic Anemia. -Monitor H&H levels Mineral bone disorder -Monitor calcium phosphorus levels Replete phosphorus as needed Hypokalemia continue to monitor replete as needed Hypernatremia Improved Increase free water flushes 200 every 4 hours Monitor serial sodium levels Volume overload -Monitor I's and O's -Hold Lasix in the setting of shock Cardiac arrest. Patient status post hypothermia protocol -Follow-up with cardiology Ventilator dependent respiratory failure - ABGs reviewed, chest x-ray reviewed -Follow-up with pulmonary Pneumothorax -Status post chest tube placement, continue to monitor Septic shock -Cultures positive for bacteremia -Continue antibiotic regimen -Wean off pressors -Continue volume expansion with IV albumin -Follow-up with ID -Monitor closely Cardiomyopathy with ejection fraction 20% Continue current medical management Follow-up with our cardiology colleagues for further recommendations arrhythmia Continue medical management Problems: Subjective 24 Hr Interval Summary Free Text/Dictation Patient seen and examined Remains critically on pressor support, being weaned off Urinary output has been adequate Exam/Review of Systems Vital Signs Vitals Vital Signs Date Time Temp Pulse Resp B/P Pulse Ox O2 Delivery O2 Flow Rate FiO2 03/09/17 06:00 79 29 115/65 100 Mechanical Ventilator 03/09/17 05:00 30 03/09/17 04:00 97.8 Intake and Output 03/08/17 03/08/17 03/09/17 15:00 23:00 07:00 Intake Total 950.80 ml 856.21 ml Output Total 357 ml 643 ml Balance 593.80 ml 213.21 ml Exam HEENT: Head is normocephalic, NECK: Supple. HEART: Irregular LUNGS: Show diminished breath sounds at base. ABDOMEN: Soft, nontender to palpation without rebound or guarding. EXTREMITIES: Negative for clubbing, cyanosis. DERMATOLOGIC: No rashes. MUSCULOSKELETAL: No joint effusions, NEUROLOGIC: No change in exam. Results Result Diagram: 03/09/175 03/09/175 Results 24 hrs Laboratory Tests Test 03/08/17 20:41 03/09/17 04:45 Bedside Glucose 121 White Blood Count 7.9 Red Blood Count 2.63 L Hemoglobin 8.1 L Hematocrit 25.7 L Mean Corpuscular Volume 97.7 Mean Corpuscular Hemoglobin 30.8 Mean Corpuscular Hemoglobin Concent 31.5 L Red Cell Distribution Width 15.3 H Platelet Count 200 Mean Platelet Volume 10.7 H Neutrophils % 67.7 Lymphocytes % 13.6 L Monocytes % 12.7 H Eosinophils % 3.1 Basophils % 0.6 Nucleated Red Blood Cells % 0.0 Neutrophils # 5.4 Lymphocytes # 1.1 Monocytes # 1.0 H Eosinophils # 0.3 Basophils # 0.1 Nucleated Red Blood Cells # 0.0 Sodium Level 144 Potassium Level 4.3 Chloride Level 101 Carbon Dioxide Level 27 Anion Gap 20 H Blood Urea Nitrogen 37 H Creatinine 1.45 H Glucose Level 103 Calcium Level 9.2 Phosphorus Level 2.8 Magnesium Level 2.2 Medications Medications Current Medications Ondansetron HCl (Zofran Inj) 4 mg Q6H PRN IV NAUSEA AND/OR VOMITING; Start 02/14 at 16:00 Pantoprazole (Protonix Iv) 40 mg DAILY@06 IV Last administered on 03/09/17 06: 11; Admin Dose 40 MG; Start 02/15/17 at 06:00 Acetaminophen (Tylenol Supp) 650 mg Q4H PRN [place] TEMP > 37C; Start 02/14/17 at 18: 00 Acetaminophen 650 mg 650 mg Q4H PRN PO TEMP > 37C Last administered on 05:27; Admin Dose 650 MG; Start 02/14/17 at 18:00 Norepinephrine 16 mg/Dextrose 500 ml @ 0 mls/hr TITRATE IV Last administered on 03/08/17 03:18; Admin Dose 7.35 MLS/HR; Start 02/14/17 at 22:00 Phenylephrine HCl/ Dextrose (Fritz-Syneph/D5W) 500 ml @ 75 mls/hr TITRATE IV ; Start 02/16/17 at 03:30 Miscellaneous Information 1 ea NOTE XX ; Start 02/16/17 at 11:30 Glucose (Glutose) 15 gm Q15M PRN PO DECREASED GLUCOSE; Start 02/16/17 at 11:30 Glucose (Glutose) 22.5 gm Q15M PRN PO DECREASED GLUCOSE; Start 02/16/17 at 11:30 Dextrose (D50w Syringe) 25 ml Q15M PRN IV DECREASED GLUCOSE; Start 02/16/17 at 11:30 Dextrose (D50w Syringe) 50 ml Q15M PRN IV DECREASED GLUCOSE; Start 02/16/17 at 11:30 Glucagon (Glucagen) 1 mg Q15M PRN IM DECREASED GLUCOSE; Start 02/16/17 at 11:30 Glucose 15 gm 15 gm Q15M PRN BUCCAL DECREASED GLUCOSE; Start 02/16/17 at 11:30 Vasopressin/ Dextrose (Vasostrict/D5W) 60 ml @ 1.8 mls/hr Q12H IV ; Start at 13:00 Aspirin (Aspirin) 81 mg DAILY GTB Last administered on 03/08/17 10:06; Admin Dose 81 MG; Start 02/18/17 at 09:00 Atorvastatin Calcium (Lipitor) 20 mg HS NGT Last administered on 03/08/17 20: 39; Admin Dose 20 MG; Start 02/17/17 at 21:00 IV Flush (NS 10 ml) 10 ml PRN PRN IV IV PROTOCOL; Start 02/20/17 at 16:00 Lorazepam (Ativan) 1 mg Q6H PRN IV AGITATION/ANXIETY Last administered on 01:09; Admin Dose 1 MG; Start 02/20/17 at 21:40 Morphine Sulfate 4 mg 4 mg Q2 PRN IV Severe Pain Last administered on 08:08; Admin Dose 4 MG; Start 02/26/17 at 21:30 Cefepime HCl 50 ml @ 100 mls/hr Q12 IVPB Last administered on 03/08/17 20:39 ; Admin Dose 100 MLS/HR; Start 03/02/17 at 11:00 Propofol (Diprivan) 100 ml @ 2.46 mls/hr Q12H IV Last administered on 21:45; Admin Dose 14.76 MLS/HR; Start 03/02/17 at 12:00 Ferrous Sulfate (Feosol Liquid Cup) 300 mg BID NGT Last administered on t 20:39; Admin Dose 300 MG; Start 03/03/17 at 21:00 Insulin Aspart (Novolog Insulin Pen) NOVOLOG *MILD* ALGORI... Q12 SC ; Start at 21:00 JENSEN OLIVIER DO Mar 09, 2017 07:05
[2017-03-09] MEDS: ALBUMIN HUMAN 25% 100 ML IV SCH ×2 (08:15→15:24)
[2017-03-09] MEDS: PROPOFOL 100 ML IV SCH ×2 (08:16→16:49)
[2017-03-09] MEDS: FERROUS SULFATE 60 MG/ML 5ML CUP NGT SCH ×2 (08:17→21:05)
[2017-03-09] MEDS: ASPIRIN 81 MG TAB GTB SCH (08:17)
[2017-03-09] MEDS: INSULIN ASPART [NOVOLOG] 3 ML PEN SC SCH ×2 (08:17→21:00)
[2017-03-09] MEDS: CEFEPIME 1GM/50 ML (PMX) 50 ML IVPB SCH ×2 (08:18→21:05)
--- NOTE | 2017-03-09 08:53 | CONS ---
Date/Time of Note Date/Time of Note DATE: 03/09/17 TIME: 08:50 Assessment/Plan Assessment/Plan Additional Assessment/Plan Ventilator settings; AC of 26, tidal volume 500, PEEP of 5, 30% FiO2. Chest x-ray was reviewed from yesterday afternoon which is showing bilateral pneumonia more pronounced in the right lung, there is a left-sided chest tube in place. No pneumothorax. Endotracheal tube is at an adequate level. Patient currently on propofol drip at 20 mics per kilogram per minute, Levophed at 4 mics per minute. Assessment and recommendations; 1. Patient admitted with cardiac status post CPR was successfully extubated but then had to be reintubated for worsening pneumonia. The chest x-ray findings showing persistent severe bilateral pneumonia. 2. Iatrogenic left pneumothorax from barotrauma after being reintubated status post chest tube placement with full lung reexpansion without any further air leak. 3. Anemia. 4. Persistent mild hypotension. Hold sedation for now. Once the patient off sedation he will be evaluated for possible weaning from ventilator. Patient's family has appropriately signed a DNR form for him.. Prognosis is very guarded. Consultation Date/Type/Reason Admit Date/Time Feb 14, 2017 at 16:02 Type of Consultation: Pulmonary/critical care Referring Provider: GUILHERME YATES 24 HR Interval Summary Free Text/Dictation Patient condition remains critical. Still remains fully ventilator dependent. Requiring Levophed for blood pressure maintenance. General exam; elderly male, on ventilator via endotracheal tube, somewhat arousable despite being on sedation. Currently in no distress. Exam/Review of Systems Vital Signs Vitals Vital Signs Date Time Temp Pulse Resp B/P Pulse Ox O2 Delivery O2 Flow Rate FiO2 03/09/17 08:00 93 03/09/17 07:15 36 117/71 99 03/09/17 07:00 Mechanical Ventilator 03/09/17 05:00 30 03/09/17 04:00 97.8 Intake and Output 03/08/17 03/08/17 03/09/17 15:00 23:00 07:00 Intake Total 950.80 ml 856.21 ml 870.33 ml Output Total 357 ml 643 ml 401 ml Balance 593.80 ml 213.21 ml 469.33 ml Exam HEENT exam; supple neck, no JVD. No lymphadenopathy. Midline trachea. Orally intubated. Patient has multiple carious teeth. Pupils are small bilaterally. Chest exam; diminished breath sounds throughout. Left-sided chest tube in place. There is no air leak in the Pleur-evac chamber. S1-S2 audible, no murmurs. Regular rhythm. Abdomen exam; soft, no organomegaly. Bowel sounds audible. Abdomen is nondistended. Extremity exam; no peripheral edema. BUILDING CERTIFIER exam; patient is somewhat arousable but is under sedation with propofol drip. Results Result Diagram: 03/09/175 03/09/17444 Results 24 hrs Laboratory Tests Test 03/08/17 20:41 03/09/17 04:45 03/09/17 08:13 Bedside Glucose 121 118 White Blood Count 7.9 Red Blood Count 2.63 L Hemoglobin 8.1 L Hematocrit 25.7 L Mean Corpuscular Volume 97.7 Mean Corpuscular Hemoglobin 30.8 Mean Corpuscular Hemoglobin Concent 31.5 L Red Cell Distribution Width 15.3 H Platelet Count 200 Mean Platelet Volume 10.7 H Neutrophils % 67.7 Lymphocytes % 13.6 L Monocytes % 12.7 H Eosinophils % 3.1 Basophils % 0.6 Nucleated Red Blood Cells % 0.0 Neutrophils # 5.4 Lymphocytes # 1.1 Monocytes # 1.0 H Eosinophils # 0.3 Basophils # 0.1 Nucleated Red Blood Cells # 0.0 Sodium Level 144 Potassium Level 4.3 Chloride Level 101 Carbon Dioxide Level 27 Anion Gap 20 H Blood Urea Nitrogen 37 H Creatinine 1.45 H Glucose Level 103 Calcium Level 9.2 Phosphorus Level 2.8 Magnesium Level 2.2 Medications Medications Current Medications Ondansetron HCl (Zofran Inj) 4 mg Q6H PRN IV NAUSEA AND/OR VOMITING; Start 02/14 at 16:00 Pantoprazole (Protonix Iv) 40 mg DAILY@06 IV Last administered on 03/09/17 06: 11; Admin Dose 40 MG; Start 02/15/17 at 06:00 Acetaminophen (Tylenol Supp) 650 mg Q4H PRN [place] TEMP > 37C; Start 02/14/17 at 18: 00 Acetaminophen 650 mg 650 mg Q4H PRN PO TEMP > 37C Last administered on 05:27; Admin Dose 650 MG; Start 02/14/17 at 18:00 Norepinephrine 16 mg/Dextrose 500 ml @ 0 mls/hr TITRATE IV Last administered on 03/08/17 03:18; Admin Dose 7.35 MLS/HR; Start 02/14/17 at 22:00 Phenylephrine HCl/ Dextrose (Fritz-Syneph/D5W) 500 ml @ 75 mls/hr TITRATE IV ; Start 02/16/17 at 03:30 Miscellaneous Information 1 ea NOTE XX ; Start 02/16/17 at 11:30 Glucose (Glutose) 15 gm Q15M PRN PO DECREASED GLUCOSE; Start 02/16/17 at 11:30 Glucose (Glutose) 22.5 gm Q15M PRN PO DECREASED GLUCOSE; Start 02/16/17 at 11:30 Dextrose (D50w Syringe) 25 ml Q15M PRN IV DECREASED GLUCOSE; Start 02/16/17 at 11:30 Dextrose (D50w Syringe) 50 ml Q15M PRN IV DECREASED GLUCOSE; Start 02/16/17 at 11:30 Glucagon (Glucagen) 1 mg Q15M PRN IM DECREASED GLUCOSE; Start 02/16/17 at 11:30 Glucose 15 gm 15 gm Q15M PRN BUCCAL DECREASED GLUCOSE; Start 02/16/17 at 11:30 Vasopressin/ Dextrose (Vasostrict/D5W) 60 ml @ 1.8 mls/hr Q12H IV ; Start at 13:00 Aspirin (Aspirin) 81 mg DAILY GTB Last administered on 03/09/17 08:17; Admin Dose 81 MG; Start 02/18/17 at 09:00 Atorvastatin Calcium (Lipitor) 20 mg HS NGT Last administered on 03/08/17 20: 39; Admin Dose 20 MG; Start 02/17/17 at 21:00 IV Flush (NS 10 ml) 10 ml PRN PRN IV IV PROTOCOL; Start 02/20/17 at 16:00 Lorazepam (Ativan) 1 mg Q6H PRN IV AGITATION/ANXIETY Last administered on 01:09; Admin Dose 1 MG; Start 02/20/17 at 21:40 Morphine Sulfate 4 mg 4 mg Q2 PRN IV Severe Pain Last administered on 08:08; Admin Dose 4 MG; Start 02/26/17 at 21:30 Cefepime HCl 50 ml @ 100 mls/hr Q12 IVPB Last administered on 03/09/17 08:18 ; Admin Dose 100 MLS/HR; Start 03/02/17 at 11:00 Propofol (Diprivan) 100 ml @ 2.46 mls/hr Q12H IV Last administered on 08:16; Admin Dose 9.84 MLS/HR; Start 03/02/17 at 12:00 Ferrous Sulfate (Feosol Liquid Cup) 300 mg BID NGT Last administered on 08:17; Admin Dose 300 MG; Start 03/03/17 at 21:00 Insulin Aspart NOVOLOG *MILD* ALGORI... Q12 SC ; Start 03/08/17 at 21:00 Albumin Human (Albumin Human 25%) 100 ml @ 100 mls/hr Q8H IV Last administered on 03/09/17 08:15; Admin Dose 100 MLS/HR; Start 03/09/17 at 07:30 ; Stop 03/10/17 at 00:29 MARCELINO POZO Mar 09, 2017 08:53
[2017-03-09] MEDS: morphine 4 MG/ML VIAL IV PRN (09:42)
--- NOTE | 2017-03-09 13:53 | PN ---
Date/Time of Note Date/Time of Note DATE: 03/09/17 TIME: 13:49 Assessment/Plan VTE Prophylaxis VTE Prophylaxis Intervention: SCD's Lines/Catheters IV Catheter Type (from [facility]): PICC Line Urinary Cath still in place: Yes Assessment/Plan Chief Complaint/Hosp Course Assessment and plan 1. Status post cardiac arrest secondary to ventricular fibrillation. Patient did receive CPR and ACLS per protocol and is status post hypothermia protocol. Of Continue optimization of cardiovascular medications 2. Ventilator dependent respiratory failure secondary to cardiac arrest. Patient was extubated and then reintubated on March 02, 2017 due to worsening respiratory status. Vent liberation per sample collector. 3. Left-sided rib fractures and barotrauma with pneumothorax secondary to repeated chest compressions from CPR. Stable at present. Patient status post chest tube placement. 4. Sepsis with multifocal pneumonia. Secondary to coagulase-negative Staphylococcus bacteremia. Continue on antibiotics. 5. Acute on chronic kidney disease. Medications to be renally dosed. Monitor renal panel. 6. Ischemic cardiopathy with EF of 20%. Continue optimization of cardiovascular medications 7. Iron deficiency anemia. Continue iron supplement Disposition plan: Tentative plan for bioethics meeting to discuss goals of care for the patient. Will follow up. Discussed plan of care with Dr. Laughlin Problems: Subjective 24 Hr Interval Summary Free Text/Dictation intubated and sedated. off pressors. no s/s of distress Exam/Review of Systems Vital Signs Vitals Vital Signs Date Time Temp Pulse Resp B/P Pulse Ox O2 Delivery O2 Flow Rate FiO2 03/09/17 12:15 78 26 117/64 03/09/17 12:00 99.0 Mechanical Ventilator 03/09/17 11:30 98 03/09/17 11:10 30 Intake and Output 03/08/17 03/08/17 03/09/17 15:00 23:00 07:00 Intake Total 950.80 ml 856.21 ml 937.52 ml Output Total 357 ml 643 ml 470 ml Balance 593.80 ml 213.21 ml 467.52 ml Exam Constitutional: other (intubated and seated ) Head: normocephalic Respiratory: diminished breath sounds Cardiovascular: other (Regular rate) Gastrointestinal: other (OG tube in place) Neurological: other (Intubated and sedated) Results Result Diagram: 03/09/175 03/09/175 Results 24 hrs Laboratory Tests Test 03/08/17 20:41 03/09/17 04:45 03/09/17 08:13 Bedside Glucose 121 118 White Blood Count 7.9 Red Blood Count 2.63 L Hemoglobin 8.1 L Hematocrit 25.7 L Mean Corpuscular Volume 97.7 Mean Corpuscular Hemoglobin 30.8 Mean Corpuscular Hemoglobin Concent 31.5 L Red Cell Distribution Width 15.3 H Platelet Count 200 Mean Platelet Volume 10.7 H Neutrophils % 67.7 Lymphocytes % 13.6 L Monocytes % 12.7 H Eosinophils % 3.1 Basophils % 0.6 Nucleated Red Blood Cells % 0.0 Neutrophils # 5.4 Lymphocytes # 1.1 Monocytes # 1.0 H Eosinophils # 0.3 Basophils # 0.1 Nucleated Red Blood Cells # 0.0 Sodium Level 144 Potassium Level 4.3 Chloride Level 101 Carbon Dioxide Level 27 Anion Gap 20 H Blood Urea Nitrogen 37 H Creatinine 1.45 H Glucose Level 103 Calcium Level 9.2 Phosphorus Level 2.8 Magnesium Level 2.2 Medications Medications Current Medications Ondansetron HCl (Zofran Inj) 4 mg Q6H PRN IV NAUSEA AND/OR VOMITING; Start 02/14 at 16:00 Pantoprazole (Protonix Iv) 40 mg DAILY@06 IV Last administered on 03/09/17 06: 11; Admin Dose 40 MG; Start 02/15/17 at 06:00 Acetaminophen (Tylenol Supp) 650 mg Q4H PRN [place] TEMP > 37C; Start 02/14/17 at 18: 00 Acetaminophen 650 mg 650 mg Q4H PRN PO TEMP > 37C Last administered on 05:27; Admin Dose 650 MG; Start 02/14/17 at 18:00 Norepinephrine 16 mg/Dextrose 500 ml @ 0 mls/hr TITRATE IV Last administered on 03/08/17 03:18; Admin Dose 7.35 MLS/HR; Start 02/14/17 at 22:00 Phenylephrine HCl/ Dextrose (Fritz-Syneph/D5W) 500 ml @ 75 mls/hr TITRATE IV ; Start 02/16/17 at 03:30 Miscellaneous Information 1 ea NOTE XX ; Start 02/16/17 at 11:30 Glucose (Glutose) 15 gm Q15M PRN PO DECREASED GLUCOSE; Start 02/16/17 at 11:30 Glucose (Glutose) 22.5 gm Q15M PRN PO DECREASED GLUCOSE; Start 02/16/17 at 11:30 Dextrose (D50w Syringe) 25 ml Q15M PRN IV DECREASED GLUCOSE; Start 02/16/17 at 11:30 Dextrose (D50w Syringe) 50 ml Q15M PRN IV DECREASED GLUCOSE; Start 02/16/17 at 11:30 Glucagon (Glucagen) 1 mg Q15M PRN IM DECREASED GLUCOSE; Start 02/16/17 at 11:30 Glucose 15 gm 15 gm Q15M PRN BUCCAL DECREASED GLUCOSE; Start 02/16/17 at 11:30 Vasopressin/ Dextrose (Vasostrict/D5W) 60 ml @ 1.8 mls/hr Q12H IV ; Start at 13:00 Aspirin (Aspirin) 81 mg DAILY GTB Last administered on 03/09/17 08:17; Admin Dose 81 MG; Start 02/18/17 at 09:00 Atorvastatin Calcium (Lipitor) 20 mg HS NGT Last administered on 03/08/17 20: 39; Admin Dose 20 MG; Start 02/17/17 at 21:00 IV Flush (NS 10 ml) 10 ml PRN PRN IV IV PROTOCOL; Start 02/20/17 at 16:00 Lorazepam (Ativan) 1 mg Q6H PRN IV AGITATION/ANXIETY Last administered on 01:09; Admin Dose 1 MG; Start 02/20/17 at 21:40 Morphine Sulfate 4 mg 4 mg Q2 PRN IV Severe Pain Last administered on 09:42; Admin Dose 4 MG; Start 02/26/17 at 21:30 Cefepime HCl 50 ml @ 100 mls/hr Q12 IVPB Last administered on 03/09/17 08:18 ; Admin Dose 100 MLS/HR; Start 03/02/17 at 11:00 Propofol (Diprivan) 100 ml @ 2.46 mls/hr Q12H IV Last administered on 08:16; Admin Dose 9.84 MLS/HR; Start 03/02/17 at 12:00 Ferrous Sulfate (Feosol Liquid Cup) 300 mg BID NGT Last administered on 08:17; Admin Dose 300 MG; Start 03/03/17 at 21:00 Insulin Aspart NOVOLOG *MILD* ALGORI... Q12 SC ; Start 03/08/17 at 21:00 Albumin Human (Albumin Human 25%) 100 ml @ 100 mls/hr Q8H IV Last administered on 03/09/17t 08:15; Admin Dose 100 MLS/HR; Start 03/09/17 at 07:30 ; Stop 03/10/17 at 00:29 SARAN CUNNINGHAM Mar 09, 2017 13:53
--- NOTE | 2017-03-09 14:43 | PN ---
Date/Time of Note Date/Time of Note DATE: 03/09/17 TIME: 14:42 Assessment/Plan VTE Prophylaxis VTE Prophylaxis Intervention: other Lines/Catheters IV Catheter Type (from Nrs): PICC Line Central line still needed: No Urinary Cath still in place: No Assessment/Plan Chief Complaint/Hosp Course Resp failure tracheostomy cancelled per bioethics Problems: Subjective 24 Hr Interval Summary Cardiovascular: no complaints Gastrointestinal: no complaints Genitourinary: no complaints Musculoskeletal: no complaints Skin: no complaints Exam/Review of Systems Vital Signs Vitals Vital Signs Date Time Temp Pulse Resp B/P Pulse Ox O2 Delivery O2 Flow Rate FiO2 03/09/17 12:15 78 26 117/64 03/09/17 12:00 99.0 Mechanical Ventilator 03/09/17 11:30 98 03/09/17 11:10 30 Intake and Output 03/08/17 03/08/17 03/09/17 15:00 23:00 07:00 Intake Total 950.80 ml 856.21 ml 937.52 ml Output Total 357 ml 643 ml 470 ml Balance 593.80 ml 213.21 ml 467.52 ml Exam Neck: non-tender, supple, No bruits, No jvd, No masses, No nuchal rigidity, No other, No thyromegaly Respiratory: clear to auscultation, normal air movement Cardiovascular: nl pulses, regular rate and rhythm Gastrointestinal: nl liver, spleen, non-tender, soft Results Result Diagram: 03/09/17 0445 03/09/17 0445 Results 24 hrs Laboratory Tests Test 03/08/17 20:41 03/09/17 04:45 03/09/17 08:13 Bedside Glucose 121 118 White Blood Count 7.9 Red Blood Count 2.63 L Hemoglobin 8.1 L Hematocrit 25.7 L Mean Corpuscular Volume 97.7 Mean Corpuscular Hemoglobin 30.8 Mean Corpuscular Hemoglobin Concent 31.5 L Red Cell Distribution Width 15.3 H Platelet Count 200 Mean Platelet Volume 10.7 H Neutrophils % 67.7 Lymphocytes % 13.6 L Monocytes % 12.7 H Eosinophils % 3.1 Basophils % 0.6 Nucleated Red Blood Cells % 0.0 Neutrophils # 5.4 Lymphocytes # 1.1 Monocytes # 1.0 H Eosinophils # 0.3 Basophils # 0.1 Nucleated Red Blood Cells # 0.0 Sodium Level 144 Potassium Level 4.3 Chloride Level 101 Carbon Dioxide Level 27 Anion Gap 20 H Blood Urea Nitrogen 37 H Creatinine 1.45 H Glucose Level 103 Calcium Level 9.2 Phosphorus Level 2.8 Magnesium Level 2.2 Medications Medications Current Medications Ondansetron HCl (Zofran Inj) 4 mg Q6H PRN IV NAUSEA AND/OR VOMITING; Start 02/14 at 16:00 Pantoprazole (Protonix Iv) 40 mg DAILY@06 IV Last administered on 03/09/17 06: 11; Admin Dose 40 MG; Start 02/15/17 at 06:00 Acetaminophen (Tylenol Supp) 650 mg Q4H PRN [place] TEMP > 37C; Start 02/14/17 at 18: 00 Acetaminophen 650 mg 650 mg Q4H PRN PO TEMP > 37C Last administered on 05:27; Admin Dose 650 MG; Start 02/14/17 at 18:00 Norepinephrine 16 mg/Dextrose 500 ml @ 0 mls/hr TITRATE IV Last administered on 03/08/17 03:18; Admin Dose 7.35 MLS/HR; Start 02/14/17 at 22:00 Phenylephrine HCl/ Dextrose (Fritz-Syneph/D5W) 500 ml @ 75 mls/hr TITRATE IV ; Start 02/16/17 at 03:30 Miscellaneous Information 1 ea NOTE XX ; Start 02/16/17 at 11:30 Glucose (Glutose) 15 gm Q15M PRN PO DECREASED GLUCOSE; Start 02/16/17 at 11:30 Glucose (Glutose) 22.5 gm Q15M PRN PO DECREASED GLUCOSE; Start 02/16/17 at 11:30 Dextrose (D50w Syringe) 25 ml Q15M PRN IV DECREASED GLUCOSE; Start 02/16/17 at 11:30 Dextrose (D50w Syringe) 50 ml Q15M PRN IV DECREASED GLUCOSE; Start 02/16/17 at 11:30 Glucagon (Glucagen) 1 mg Q15M PRN IM DECREASED GLUCOSE; Start 02/16/17 at 11:30 Glucose 15 gm 15 gm Q15M PRN BUCCAL DECREASED GLUCOSE; Start 02/16/17 at 11:30 Vasopressin/ Dextrose (Vasostrict/D5W) 60 ml @ 1.8 mls/hr Q12H IV ; Start at 13:00 Aspirin (Aspirin) 81 mg DAILY GTB Last administered on 03/09/17 08:17; Admin Dose 81 MG; Start 02/18/17 at 09:00 Atorvastatin Calcium (Lipitor) 20 mg HS NGT Last administered on 03/08/17 20: 39; Admin Dose 20 MG; Start 02/17/17 at 21:00 IV Flush (NS 10 ml) 10 ml PRN PRN IV IV PROTOCOL; Start 02/20/17 at 16:00 Lorazepam (Ativan) 1 mg Q6H PRN IV AGITATION/ANXIETY Last administered on 01:09; Admin Dose 1 MG; Start 02/20/17 at 21:40 Morphine Sulfate 4 mg 4 mg Q2 PRN IV Severe Pain Last administered on 09:42; Admin Dose 4 MG; Start 02/26/17 at 21:30 Cefepime HCl 50 ml @ 100 mls/hr Q12 IVPB Last administered on 03/09/17 08:18 ; Admin Dose 100 MLS/HR; Start 03/02/17 at 11:00 Propofol (Diprivan) 100 ml @ 2.46 mls/hr Q12H IV Last administered on 08:16; Admin Dose 9.84 MLS/HR; Start 03/02/17 at 12:00 Ferrous Sulfate (Feosol Liquid Cup) 300 mg BID NGT Last administered on 08:17; Admin Dose 300 MG; Start 03/03/17 at 21:00 Insulin Aspart NOVOLOG *MILD* ALGORI... Q12 SC ; Start 03/08/17 at 21:00 Albumin Human (Albumin Human 25%) 100 ml @ 100 mls/hr Q8H IV Last administered on 03/09/17 08:15; Admin Dose 100 MLS/HR; Start 03/09/17 at 07:30 ; Stop 03/10/17 at 00:29 GUANAKITO THURMAN MD Mar 09, 2017 14:43
--- NOTE | 2017-03-09 15:06 | CONS ---
Date/Time of Note Date/Time of Note DATE: 03/09/17 TIME: 15:05 Assessment/Plan Assessment/Plan Additional Assessment/Plan Cardiopulmonary arrest Septic shock Vent dependent respiratory failure, reintubated Cardiomyopathy with ejection fraction 20% Non-ST elevation [place] Acute kidney injury Acute blood loss anemia Paroxysmal atrial fibrillation -Patient status post hypothermia protocol. -Continue aspirin and statin therapy, no beta-naida secondary to bradycardia, no BERTHA inhibitor secondary to acute kidney injury. Titrate IV pressor to maintain SBP greater than 90 and or map above 60. -Patient with paroxysmal atrial fibrillation but bradycardic with amiodarone, would continue to monitor. -Diuretics as per our nephrology colleagues. Consultation Date/Type/Reason Admit Date/Time Feb 14, 2017 at 16:02 Type of Consultation: cv Referring Provider: GUILHERME YATES 24 HR Interval Summary Free Text/Dictation Patient seen and examined, no new cardiac issues as per nursing staff Exam/Review of Systems Vital Signs Vitals Vital Signs Date Time Temp Pulse Resp B/P Pulse Ox O2 Delivery O2 Flow Rate FiO2 03/09/17 12:15 78 26 117/64 03/09/17 12:00 99.0 Mechanical Ventilator 03/09/17 11:30 98 03/09/17 11:10 30 Intake and Output 03/08/17 03/08/17 03/09/17 15:00 23:00 07:00 Intake Total 950.80 ml 856.21 ml 937.52 ml Output Total 357 ml 643 ml 470 ml Balance 593.80 ml 213.21 ml 467.52 ml Exam Sedated and intubated, no apparent distress Head: normocephalic ENMT: intubated Respiratory: other (Coarse breath sounds bilaterally, no wheezing) Cardiovascular: other (S1-S2 heard), regular rate and rhythm Gastrointestinal: bowel sounds, non-tender, soft Extremities: edema Results Result Diagram: 03/09/17 0445 03/09/17 0445 Results 24 hrs Laboratory Tests Test 03/08/17 20:41 03/09/17 04:45 03/09/17 08:13 Bedside Glucose 121 118 White Blood Count 7.9 Red Blood Count 2.63 L Hemoglobin 8.1 L Hematocrit 25.7 L Mean Corpuscular Volume 97.7 Mean Corpuscular Hemoglobin 30.8 Mean Corpuscular Hemoglobin Concent 31.5 L Red Cell Distribution Width 15.3 H Platelet Count 200 Mean Platelet Volume 10.7 H Neutrophils % 67.7 Lymphocytes % 13.6 L Monocytes % 12.7 H Eosinophils % 3.1 Basophils % 0.6 Nucleated Red Blood Cells % 0.0 Neutrophils # 5.4 Lymphocytes # 1.1 Monocytes # 1.0 H Eosinophils # 0.3 Basophils # 0.1 Nucleated Red Blood Cells # 0.0 Sodium Level 144 Potassium Level 4.3 Chloride Level 101 Carbon Dioxide Level 27 Anion Gap 20 H Blood Urea Nitrogen 37 H Creatinine 1.45 H Glucose Level 103 Calcium Level 9.2 Phosphorus Level 2.8 Magnesium Level 2.2 Medications Medications Current Medications Ondansetron HCl (Zofran Inj) 4 mg Q6H PRN IV NAUSEA AND/OR VOMITING; Start 02/14 at 16:00 Pantoprazole (Protonix Iv) 40 mg DAILY@06 IV Last administered on 03/09/17 06: 11; Admin Dose 40 MG; Start 02/15/17 at 06:00 Acetaminophen (Tylenol Supp) 650 mg Q4H PRN [place] TEMP > 37C; Start 02/14/17 at 18: 00 Acetaminophen 650 mg 650 mg Q4H PRN PO TEMP > 37C Last administered on 05:27; Admin Dose 650 MG; Start 02/14/17 at 18:00 Norepinephrine 16 mg/Dextrose 500 ml @ 0 mls/hr TITRATE IV Last administered on 03/08/17 03:18; Admin Dose 7.35 MLS/HR; Start 02/14/17 at 22:00 Phenylephrine HCl/ Dextrose (Fritz-Syneph/D5W) 500 ml @ 75 mls/hr TITRATE IV ; Start 02/16/17 at 03:30 Miscellaneous Information 1 ea NOTE XX ; Start 02/16/17 at 11:30 Glucose (Glutose) 15 gm Q15M PRN PO DECREASED GLUCOSE; Start 02/16/17 at 11:30 Glucose (Glutose) 22.5 gm Q15M PRN PO DECREASED GLUCOSE; Start 02/16/17 at 11:30 Dextrose (D50w Syringe) 25 ml Q15M PRN IV DECREASED GLUCOSE; Start 02/16/17 at 11:30 Dextrose (D50w Syringe) 50 ml Q15M PRN IV DECREASED GLUCOSE; Start 02/16/17 at 11:30 Glucagon (Glucagen) 1 mg Q15M PRN IM DECREASED GLUCOSE; Start 02/16/17 at 11:30 Glucose 15 gm 15 gm Q15M PRN BUCCAL DECREASED GLUCOSE; Start 02/16/17 at 11:30 Vasopressin/ Dextrose (Vasostrict/D5W) 60 ml @ 1.8 mls/hr Q12H IV ; Start at 13:00 Aspirin (Aspirin) 81 mg DAILY GTB Last administered on 03/09/17 08:17; Admin Dose 81 MG; Start 02/18/17 at 09:00 Atorvastatin Calcium (Lipitor) 20 mg HS NGT Last administered on 03/08/17 20: 39; Admin Dose 20 MG; Start 02/17/17 at 21:00 IV Flush (NS 10 ml) 10 ml PRN PRN IV IV PROTOCOL; Start 02/20/17 at 16:00 Lorazepam (Ativan) 1 mg Q6H PRN IV AGITATION/ANXIETY Last administered on 01:09; Admin Dose 1 MG; Start 02/20/17 at 21:40 Morphine Sulfate 4 mg 4 mg Q2 PRN IV Severe Pain Last administered on 09:42; Admin Dose 4 MG; Start 02/26/17 at 21:30 Cefepime HCl 50 ml @ 100 mls/hr Q12 IVPB Last administered on 03/09/17 08:18 ; Admin Dose 100 MLS/HR; Start 03/02/17 at 11:00 Propofol (Diprivan) 100 ml @ 2.46 mls/hr Q12H IV Last administered on 08:16; Admin Dose 9.84 MLS/HR; Start 03/02/17 at 12:00 Ferrous Sulfate (Feosol Liquid Cup) 300 mg BID NGT Last administered on 08:17; Admin Dose 300 MG; Start 03/03/17 at 21:00 Insulin Aspart NOVOLOG *MILD* ALGORI... Q12 SC ; Start 03/08/17 at 21:00 Albumin Human (Albumin Human 25%) 100 ml @ 100 mls/hr Q8H IV Last administered on 03/09/17 08:15; Admin Dose 100 MLS/HR; Start 03/09/17 at 07:30 ; Stop 03/10/17 at 00:29 Casey Schuler DO Mar 09, 2017 15:06
[2017-03-09] MEDS: ATORVASTATIN 20 MG TAB NGT SCH (21:05)
[2017-03-10] VITALS (85 sets, daily range): BP systolic 85–130; BP diastolic 51–96; PULSE 64–91; RESP 19–35
[2017-03-10] MEDS: ALBUMIN HUMAN 25% 100 ML IV SCH ×3 (00:28→16:06)
[2017-03-10] MEDS: VASOPRESSIN 60 UNIT in DEXTROSE 5% 57 ML IV SCH ×2 (00:28→11:35)
[2017-03-10] MEDS: PROPOFOL 100 ML IV SCH ×2 (03:57→11:35)
[2017-03-10 05:14] LABS: BASOPHILS % 0.5 % (0.0-2.0); EOSINOPHILS # 0.3 10^3/ul (0.0-0.5); EOSINOPHILS % 2.8 % (0.0-7.0); HEMOGLOBIN 8.1 g/dl (14.0-18.0); LYMPHOCYTES # 1.2 10^3/ul (0.8-2.9); LYMPHOCYTES % 13.7 % (15.0-51.0); MEAN CORPUSCULAR HEMOGLOBIN 31.6 pg (29.0-33.0); MEAN CORPUSCULAR HGB CONC 32.4 g/dl (32.0-37.0); MEAN CORPUSCULAR VOLUME 97.7 fl (82.0-101.0); MEAN PLATELET VOLUME 10.8 fl (7.4-10.4); MONOCYTES % 10.9 % (0.0-11.0); NEUTROPHIL # 6.2 10^3/ul (1.6-7.5); NEUTROPHILS % 70.6 % (39.0-77.0); PLATELET COUNT 208 10^3/UL (140-415); RED BLOOD COUNT 2.56 10^6/ul (4.70-6.10); RED CELL DISTRIBUTION WIDTH 15.2 % (11.5-14.5); WHITE BLOOD COUNT 8.8 10^3/ul (4.8-10.8)
[2017-03-10 05:48] LABS: CALCIUM 9.2 mg/dl (8.4-10.2); CREATININE 1.42 mg/dl (0.61-1.24); MAGNESIUM 2.3 mg/dl (1.7-2.5); PHOSPHORUS 2.9 mg/dl (2.5-4.9); POTASSIUM 4.3 mmol/L (3.5-5.1)
[2017-03-10] MEDS: PANTOPRAZOLE 40 MG INJ IV SCH (06:02)
--- NOTE | 2017-03-10 07:16 | PN ---
Date/Time of Note Date/Time of Note DATE: 03/10/17 TIME: 07:15 Assessment/Plan Lines/Catheters IV Catheter Type (from Nrsg): PICC Line Urinary Cath still in place: Yes Assessment/Plan Chief Complaint/Hosp Course 1. Nonoliguric acute kidney injury with previous baseline creatinine 0.8 mg/dL. -Etiology of CROW secondary to ATN due to ischemic hypoperfusion shock. -Urinalysis was reviewed evidence of proteinuria, no evidence of active sediment -Renal function has been fluctuating but overall stable, -Holding Lasix in the setting of shock -Continue supportive care, renally dose all meds, avoid nephrotoxic Anemia. -Monitor H&H levels Mineral bone disorder -Monitor calcium phosphorus levels Replete phosphorus as needed Hypokalemia continue to monitor replete as needed Hypernatremia Improved Increase free water flushes 200 every 4 hours Monitor serial sodium levels Volume overload -Monitor I's and O's -Hold Lasix in the setting of shock Cardiac arrest. Patient status post hypothermia protocol -Follow-up with cardiology Ventilator dependent respiratory failure - ABGs reviewed, chest x-ray reviewed -Follow-up with pulmonary Pneumothorax -Status post chest tube placement, continue to monitor Septic shock -Cultures positive for bacteremia -Continue antibiotic regimen -Wean off pressors -Continue volume expansion with IV albumin -Follow-up with ID -Monitor closely Cardiomyopathy with ejection fraction 20% Continue current medical management Follow-up with our cardiology colleagues for further recommendations arrhythmia Continue medical management Problems: Subjective 24 Hr Interval Summary Free Text/Dictation Patient seen and examined Remains critically on pressor support Good urinary output Exam/Review of Systems Vital Signs Vitals Vital Signs Date Time Temp Pulse Resp B/P Pulse Ox O2 Delivery O2 Flow Rate FiO2 03/10/17 07:00 91 33 115/72 100 Mechanical Ventilator 03/10/17 04:55 30 03/10/17 04:00 98.9 Intake and Output 03/09/17 03/09/17 03/10/17 15:00 23:00 07:00 Intake Total 912.95 ml 1006.11 ml 969.45 ml Output Total 669 ml 743 ml 345 ml Balance 243.95 ml 263.11 ml 624.45 ml Exam HEENT: Head is normocephalic, NECK: Supple. HEART: Irregular LUNGS: Show diminished breath sounds at base. ABDOMEN: Soft, nontender to palpation without rebound or guarding. EXTREMITIES: Negative for clubbing, cyanosis. DERMATOLOGIC: No rashes. MUSCULOSKELETAL: No joint effusions, NEUROLOGIC: No change in exam. Results Result Diagram: 03/10/17 0400 03/10/17 0400 Results 24 hrs Laboratory Tests Test 03/09/17 08:13 03/09/17 21:07 03/10/17 04:00 Bedside Glucose 118 111 White Blood Count 8.8 Red Blood Count 2.56 L Hemoglobin 8.1 L Hematocrit 25.0 L Mean Corpuscular Volume 97.7 Mean Corpuscular Hemoglobin 31.6 Mean Corpuscular Hemoglobin Concent 32.4 Red Cell Distribution Width 15.2 H Platelet Count 208 Mean Platelet Volume 10.8 H Neutrophils % 70.6 Lymphocytes % 13.7 L Monocytes % 10.9 Eosinophils % 2.8 Basophils % 0.5 Nucleated Red Blood Cells % 0.0 Neutrophils # 6.2 Lymphocytes # 1.2 Monocytes # 1.0 H Eosinophils # 0.3 Basophils # 0.0 Nucleated Red Blood Cells # 0.0 Sodium Level 144 Potassium Level 4.3 Chloride Level 101 Carbon Dioxide Level 27 Anion Gap 20 H Blood Urea Nitrogen 40 H Creatinine 1.42 H Glucose Level 107 Calcium Level 9.2 Phosphorus Level 2.9 Magnesium Level 2.3 Medications Medications Current Medications Ondansetron HCl (Zofran Inj) 4 mg Q6H PRN IV NAUSEA AND/OR VOMITING; Start 02/14 at 16:00 Pantoprazole (Protonix Iv) 40 mg DAILY@06 IV Last administered on 03/10/17 06: 02; Admin Dose 40 MG; Start 02/15/17 at 06:00 Acetaminophen (Tylenol Supp) 650 mg Q4H PRN [place] TEMP > 37C; Start 02/14/17 at 18: 00 Acetaminophen 650 mg 650 mg Q4H PRN PO TEMP > 37C Last administered on 05:27; Admin Dose 650 MG; Start 02/14/17 at 18:00 Norepinephrine 16 mg/Dextrose 500 ml @ 0 mls/hr TITRATE IV Last administered on 03/08/17 03:18; Admin Dose 7.35 MLS/HR; Start 02/14/17 at 22:00 Phenylephrine HCl/ Dextrose (Fritz-Syneph/D5W) 500 ml @ 75 mls/hr TITRATE IV ; Start 02/16/17 at 03:30 Miscellaneous Information 1 ea NOTE XX ; Start 02/16/17 at 11:30 Glucose (Glutose) 15 gm Q15M PRN PO DECREASED GLUCOSE; Start 02/16/17 at 11:30 Glucose (Glutose) 22.5 gm Q15M PRN PO DECREASED GLUCOSE; Start 02/16/17 at 11:30 Dextrose (D50w Syringe) 25 ml Q15M PRN IV DECREASED GLUCOSE; Start 02/16/17 at 11:30 Dextrose (D50w Syringe) 50 ml Q15M PRN IV DECREASED GLUCOSE; Start 02/16/17 at 11:30 Glucagon (Glucagen) 1 mg Q15M PRN IM DECREASED GLUCOSE; Start 02/16/17 at 11:30 Glucose 15 gm 15 gm Q15M PRN BUCCAL DECREASED GLUCOSE; Start 02/16/17 at 11:30 Vasopressin/ Dextrose (Vasostrict/D5W) 60 ml @ 1.8 mls/hr Q12H IV ; Start at 13:00 Aspirin (Aspirin) 81 mg DAILY GTB Last administered on 03/09/17 08:17; Admin Dose 81 MG; Start 02/18/17 at 09:00 Atorvastatin Calcium (Lipitor) 20 mg HS NGT Last administered on 03/09/17 21: 05; Admin Dose 20 MG; Start 02/17/17 at 21:00 IV Flush (NS 10 ml) 10 ml PRN PRN IV IV PROTOCOL; Start 02/20/17 at 16:00 Lorazepam (Ativan) 1 mg Q6H PRN IV AGITATION/ANXIETY Last administered on 01:09; Admin Dose 1 MG; Start 02/20/17 at 21:40 Morphine Sulfate 4 mg 4 mg Q2 PRN IV Severe Pain Last administered on 09:42; Admin Dose 4 MG; Start 02/26/17 at 21:30 Cefepime HCl 50 ml @ 100 mls/hr Q12 IVPB Last administered on 03/09/17 21:05 ; Admin Dose 100 MLS/HR; Start 03/02/17 at 11:00 Propofol (Diprivan) 100 ml @ 2.46 mls/hr Q12H IV Last administered on 03:57; Admin Dose 9.84 MLS/HR; Start 03/02/17 at 12:00 Ferrous Sulfate (Feosol Liquid Cup) 300 mg BID NGT Last administered on t 21:05; Admin Dose 300 MG; Start 03/03/17 at 21:00 Insulin Aspart (Novolog Insulin Pen) NOVOLOG *MILD* ALGORI... Q12 SC ; Start at 21:00 JENSEN OLIVIER DO Mar 10, 2017 07:16
[2017-03-10] MEDS: morphine 4 MG/ML VIAL IV PRN (07:50)
[2017-03-10] MEDS: CEFEPIME 1GM/50 ML (PMX) 50 ML IVPB SCH (08:03)
[2017-03-10] MEDS: FERROUS SULFATE 60 MG/ML 5ML CUP NGT SCH (08:04)
[2017-03-10] MEDS: INSULIN ASPART [NOVOLOG] 3 ML PEN SC SCH (08:04)
[2017-03-10] MEDS: ASPIRIN 81 MG TAB GTB SCH (08:04)
--- NOTE | 2017-03-10 09:44 | PN ---
Date/Time of Note Date/Time of Note DATE: 03/10/17 TIME: 09:42 Assessment/Plan VTE Prophylaxis VTE Prophylaxis Intervention: other Lines/Catheters IV Catheter Type (from Nrs): Central line still needed: No Urinary Cath still in place: No Assessment/Plan Chief Complaint/Hosp Course Resp failure tracheostomy cancelled per bioethics Problems: Subjective 24 Hr Interval Summary Respiratory: no complaints Cardiovascular: no complaints Gastrointestinal: no complaints Genitourinary: no complaints Musculoskeletal: no complaints Exam/Review of Systems Vital Signs Vitals Vital Signs Date Time Temp Pulse Resp B/P Pulse Ox O2 Delivery O2 Flow Rate FiO2 03/10/17 09:15 75 24 102/62 100 Mechanical Ventilator 03/10/17 08:00 30 03/10/17 08:00 99.4 Intake and Output 03/09/17 03/09/17 03/10/17 15:00 23:00 07:00 Intake Total 912.95 ml 1006.11 ml 1031.45 ml Output Total 669 ml 743 ml 395 ml Balance 243.95 ml 263.11 ml 636.45 ml Exam ENMT: nl external ears & nose, nl lips & teeth, nl nasal mucosa & septum Neck: non-tender, supple Respiratory: clear to auscultation, normal air movement Cardiovascular: nl pulses, regular rate and rhythm Results Result Diagram: 03/10/17 0400 03/10/17 0400 Results 24 hrs Laboratory Tests Test 03/09/17 21:07 03/10/17 04:00 03/10/17 08:03 Bedside Glucose 111 121 White Blood Count 8.8 Red Blood Count 2.56 L Hemoglobin 8.1 L Hematocrit 25.0 L Mean Corpuscular Volume 97.7 Mean Corpuscular Hemoglobin 31.6 Mean Corpuscular Hemoglobin Concent 32.4 Red Cell Distribution Width 15.2 H Platelet Count 208 Mean Platelet Volume 10.8 H Neutrophils % 70.6 Lymphocytes % 13.7 L Monocytes % 10.9 Eosinophils % 2.8 Basophils % 0.5 Nucleated Red Blood Cells % 0.0 Neutrophils # 6.2 Lymphocytes # 1.2 Monocytes # 1.0 H Eosinophils # 0.3 Basophils # 0.0 Nucleated Red Blood Cells # 0.0 Sodium Level 144 Potassium Level 4.3 Chloride Level 101 Carbon Dioxide Level 27 Anion Gap 20 H Blood Urea Nitrogen 40 H Creatinine 1.42 H Glucose Level 107 Calcium Level 9.2 Phosphorus Level 2.9 Magnesium Level 2.3 Medications Medications Current Medications Ondansetron HCl (Zofran Inj) 4 mg Q6H PRN IV NAUSEA AND/OR VOMITING; Start 02/14 at 16:00 Pantoprazole (Protonix Iv) 40 mg DAILY@06 IV Last administered on 03/10/17 06: 02; Admin Dose 40 MG; Start 02/15/17 at 06:00 Acetaminophen (Tylenol Supp) 650 mg Q4H PRN [place] TEMP > 37C; Start 02/14/17 at 18: 00 Acetaminophen 650 mg 650 mg Q4H PRN PO TEMP > 37C Last administered on 05:27; Admin Dose 650 MG; Start 02/14/17 at 18:00 Norepinephrine 16 mg/Dextrose 500 ml @ 0 mls/hr TITRATE IV Last administered on 03/08/17 03:18; Admin Dose 7.35 MLS/HR; Start 02/14/17 at 22:00 Phenylephrine HCl/ Dextrose (Fritz-Syneph/D5W) 500 ml @ 75 mls/hr TITRATE IV ; Start 02/16/17 at 03:30 Miscellaneous Information 1 ea NOTE XX ; Start 02/16/17 at 11:30 Glucose (Glutose) 15 gm Q15M PRN PO DECREASED GLUCOSE; Start 02/16/17 at 11:30 Glucose (Glutose) 22.5 gm Q15M PRN PO DECREASED GLUCOSE; Start 02/16/17 at 11:30 Dextrose (D50w Syringe) 25 ml Q15M PRN IV DECREASED GLUCOSE; Start 02/16/17 at 11:30 Dextrose (D50w Syringe) 50 ml Q15M PRN IV DECREASED GLUCOSE; Start 02/16/17 at 11:30 Glucagon (Glucagen) 1 mg Q15M PRN IM DECREASED GLUCOSE; Start 02/16/17 at 11:30 Glucose 15 gm 15 gm Q15M PRN BUCCAL DECREASED GLUCOSE; Start 02/16/17 at 11:30 Vasopressin/ Dextrose (Vasostrict/D5W) 60 ml @ 1.8 mls/hr Q12H IV ; Start at 13:00 Aspirin (Aspirin) 81 mg DAILY GTB Last administered on 03/10/17 08:04; Admin Dose 81 MG; Start 02/18/17 at 09:00 Atorvastatin Calcium (Lipitor) 20 mg HS NGT Last administered on 03/09/17 21: 05; Admin Dose 20 MG; Start 02/17/17 at 21:00 IV Flush (NS 10 ml) 10 ml PRN PRN IV IV PROTOCOL; Start 02/20/17 at 16:00 Lorazepam (Ativan) 1 mg Q6H PRN IV AGITATION/ANXIETY Last administered on 01:09; Admin Dose 1 MG; Start 02/20/17 at 21:40 Morphine Sulfate 4 mg 4 mg Q2 PRN IV Severe Pain Last administered on 07:50; Admin Dose 4 MG; Start 02/26/17 at 21:30 Cefepime HCl 50 ml @ 100 mls/hr Q12 IVPB Last administered on 03/10/17 08:03 ; Admin Dose 100 MLS/HR; Start 03/02/17 at 11:00 Propofol (Diprivan) 100 ml @ 2.46 mls/hr Q12H IV Last administered on 03:57; Admin Dose 9.84 MLS/HR; Start 03/02/17 at 12:00 Ferrous Sulfate (Feosol Liquid Cup) 300 mg BID NGT Last administered on 08:04; Admin Dose 300 MG; Start 03/03/17 at 21:00 Insulin Aspart NOVOLOG *MILD* ALGORI... Q12 SC ; Start 03/08/17 at 21:00 Albumin Human (Albumin Human 25%) 100 ml @ 100 mls/hr Q8H IV Last administered on 03/10/17 07:51; Admin Dose 100 MLS/HR; Start 03/10/17 at 07:30 ; Stop 03/11/17 at 00:29 GUANAKITO THURMAN MD Mar 10, 2017 09:44
--- NOTE | 2017-03-10 09:50 | CONS ---
Date/Time of Note Date/Time of Note DATE: 03/10/17 TIME: 09:44 Assessment/Plan Assessment/Plan Additional Assessment/Plan Ventilator setting; AC of 26, tidal volume 500, PEEP of 5, 30% FiO2. Patient currently on propofol at 25 mics per kilogram per minute. Assessment and recommendations; 1. Patient initially admitted with cardiac arrest status post CPR was successfully extubated then developed bilateral pneumonia requiring reintubation. 2. Poor mental status. 3. Anemia. 4. Renal insufficiency. 5. Left pneumothorax after intubation, patient maintained on chest tube without any further air leak. Chest tube to be maintained while the patient is intubated. Continue current treatment. Prognosis is very poor. Consultation Date/Type/Reason Admit Date/Time Feb 14, 2017 at 16:02 Type of Consultation: Pulmonary/critical care Referring Provider: GUILHERME YATES 24 HR Interval Summary Free Text/Dictation Patient condition remains critical. Patient has failed sedation vacations due to ensuing tachypnea and tachycardia. General exam; elderly male, sedated, orally intubated. Currently in no distress. Exam/Review of Systems Vital Signs Vitals Vital Signs Date Time Temp Pulse Resp B/P Pulse Ox O2 Delivery O2 Flow Rate FiO2 03/10/17 09:15 75 24 102/62 100 Mechanical Ventilator 03/10/17 08:00 30 03/10/17 08:00 99.4 Intake and Output 03/09/17 03/09/17 03/10/17 15:00 23:00 07:00 Intake Total 912.95 ml 1006.11 ml 1031.45 ml Output Total 669 ml 743 ml 395 ml Balance 243.95 ml 263.11 ml 636.45 ml Exam HEENT exam; supple neck, positive JVD. No lymphadenopathy. Midline trachea. No thyromegaly. Orally intubated. Patient has a multiple carious teeth. Chest exam; scattered crackles bilaterally. S1-S2 audible, no murmurs. Regular rhythm. Abdomen exam; soft, nondistended. No organomegaly. Bowel sounds are sluggish. Extremity exam; trace edema. HEEL SCORER exam; patient is sedated. Results Result Diagram: 03/10/17 0400 03/10/17 0400 Results 24 hrs Laboratory Tests Test 03/09/17 21:07 03/10/17 04:00 03/10/17 08:03 Bedside Glucose 111 121 White Blood Count 8.8 Red Blood Count 2.56 L Hemoglobin 8.1 L Hematocrit 25.0 L Mean Corpuscular Volume 97.7 Mean Corpuscular Hemoglobin 31.6 Mean Corpuscular Hemoglobin Concent 32.4 Red Cell Distribution Width 15.2 H Platelet Count 208 Mean Platelet Volume 10.8 H Neutrophils % 70.6 Lymphocytes % 13.7 L Monocytes % 10.9 Eosinophils % 2.8 Basophils % 0.5 Nucleated Red Blood Cells % 0.0 Neutrophils # 6.2 Lymphocytes # 1.2 Monocytes # 1.0 H Eosinophils # 0.3 Basophils # 0.0 Nucleated Red Blood Cells # 0.0 Sodium Level 144 Potassium Level 4.3 Chloride Level 101 Carbon Dioxide Level 27 Anion Gap 20 H Blood Urea Nitrogen 40 H Creatinine 1.42 H Glucose Level 107 Calcium Level 9.2 Phosphorus Level 2.9 Magnesium Level 2.3 Medications Medications Current Medications Ondansetron HCl (Zofran Inj) 4 mg Q6H PRN IV NAUSEA AND/OR VOMITING; Start 02/14 at 16:00 Pantoprazole (Protonix Iv) 40 mg DAILY@06 IV Last administered on 03/10/17 06: 02; Admin Dose 40 MG; Start 02/15/17 at 06:00 Acetaminophen (Tylenol Supp) 650 mg Q4H PRN [place] TEMP > 37C; Start 02/14/17 at 18: 00 Acetaminophen 650 mg 650 mg Q4H PRN PO TEMP > 37C Last administered on 05:27; Admin Dose 650 MG; Start 02/14/17 at 18:00 Norepinephrine 16 mg/Dextrose 500 ml @ 0 mls/hr TITRATE IV Last administered on 03/08/17 03:18; Admin Dose 7.35 MLS/HR; Start 02/14/17 at 22:00 Phenylephrine HCl/ Dextrose (Fritz-Syneph/D5W) 500 ml @ 75 mls/hr TITRATE IV ; Start 02/16/17 at 03:30 Miscellaneous Information 1 ea NOTE XX ; Start 02/16/17 at 11:30 Glucose (Glutose) 15 gm Q15M PRN PO DECREASED GLUCOSE; Start 02/16/17 at 11:30 Glucose (Glutose) 22.5 gm Q15M PRN PO DECREASED GLUCOSE; Start 02/16/17 at 11:30 Dextrose (D50w Syringe) 25 ml Q15M PRN IV DECREASED GLUCOSE; Start 02/16/17 at 11:30 Dextrose (D50w Syringe) 50 ml Q15M PRN IV DECREASED GLUCOSE; Start 02/16/17 at 11:30 Glucagon (Glucagen) 1 mg Q15M PRN IM DECREASED GLUCOSE; Start 02/16/17 at 11:30 Glucose 15 gm 15 gm Q15M PRN BUCCAL DECREASED GLUCOSE; Start 02/16/17 at 11:30 Vasopressin/ Dextrose (Vasostrict/D5W) 60 ml @ 1.8 mls/hr Q12H IV ; Start at 13:00 Aspirin (Aspirin) 81 mg DAILY GTB Last administered on 03/10/17 08:04; Admin Dose 81 MG; Start 02/18/17 at 09:00 Atorvastatin Calcium (Lipitor) 20 mg HS NGT Last administered on 03/09/17 21: 05; Admin Dose 20 MG; Start 02/17/17 at 21:00 IV Flush (NS 10 ml) 10 ml PRN PRN IV IV PROTOCOL; Start 02/20/17 at 16:00 Lorazepam (Ativan) 1 mg Q6H PRN IV AGITATION/ANXIETY Last administered on 01:09; Admin Dose 1 MG; Start 02/20/17 at 21:40 Morphine Sulfate 4 mg 4 mg Q2 PRN IV Severe Pain Last administered on 07:50; Admin Dose 4 MG; Start 02/26/17 at 21:30 Cefepime HCl 50 ml @ 100 mls/hr Q12 IVPB Last administered on 03/10/17 08:03 ; Admin Dose 100 MLS/HR; Start 03/02/17 at 11:00 Propofol (Diprivan) 100 ml @ 2.46 mls/hr Q12H IV Last administered on 03:57; Admin Dose 9.84 MLS/HR; Start 03/02/17 at 12:00 Ferrous Sulfate (Feosol Liquid Cup) 300 mg BID NGT Last administered on 08:04; Admin Dose 300 MG; Start 03/03/17 at 21:00 Insulin Aspart NOVOLOG *MILD* ALGORI... Q12 SC ; Start 03/08/17 at 21:00 Albumin Human (Albumin Human 25%) 100 ml @ 100 mls/hr Q8H IV Last administered on 03/10/17 07:51; Admin Dose 100 MLS/HR; Start 03/10/17 at 07:30 ; Stop 03/11/17 at 00:29 MARCELINO POZO Mar 10, 2017 09:50
--- NOTE | 2017-03-10 10:13 | CONS ---
Date/Time of Note Date/Time of Note DATE: 03/10/17 TIME: 10:05 Assessment/Plan Assessment/Plan Additional Assessment/Plan Reviewed notes from [facility].. Bioethics meeting with family member today. Issue as I see is if patients daughter has not seen him since childhood ethically should or could she still be his agent. Will wait for Bioethics recommendations.. Consultation Date/Type/Reason Admit Date/Time Feb 14, 2017 at 16:02 Initial Consult Date Postdated note for date of visit March 07 Type of Consultation: Palliative Care Referring Provider: GUILHERME YATES Exam/Review of Systems Vital Signs Vitals Vital Signs Date Time Temp Pulse Resp B/P Pulse Ox O2 Delivery O2 Flow Rate FiO2 03/10/17 09:15 75 24 102/62 100 Mechanical Ventilator 03/10/17 08:00 30 03/10/17 08:00 99.4 Intake and Output 03/09/17 03/09/17 03/10/17 15:00 23:00 07:00 Intake Total 912.95 ml 1006.11 ml 1031.45 ml Output Total 669 ml 743 ml 395 ml Balance 243.95 ml 263.11 ml 636.45 ml Exam Head: atraumatic, normocephalic Neck: non-tender, supple Neurological: GEODETIC ENGINEER II-XII intact, nl mental status, nl speech, nl strength, other (Sedated) Results Result Diagram: 03/10/17 0400 03/10/17 0400 Results 24 hrs Laboratory Tests Test 03/09/17 21:07 03/10/17 04:00 03/10/17 08:03 Bedside Glucose 111 121 White Blood Count 8.8 Red Blood Count 2.56 L Hemoglobin 8.1 L Hematocrit 25.0 L Mean Corpuscular Volume 97.7 Mean Corpuscular Hemoglobin 31.6 Mean Corpuscular Hemoglobin Concent 32.4 Red Cell Distribution Width 15.2 H Platelet Count 208 Mean Platelet Volume 10.8 H Neutrophils % 70.6 Lymphocytes % 13.7 L Monocytes % 10.9 Eosinophils % 2.8 Basophils % 0.5 Nucleated Red Blood Cells % 0.0 Neutrophils # 6.2 Lymphocytes # 1.2 Monocytes # 1.0 H Eosinophils # 0.3 Basophils # 0.0 Nucleated Red Blood Cells # 0.0 Sodium Level 144 Potassium Level 4.3 Chloride Level 101 Carbon Dioxide Level 27 Anion Gap 20 H Blood Urea Nitrogen 40 H Creatinine 1.42 H Glucose Level 107 Calcium Level 9.2 Phosphorus Level 2.9 Magnesium Level 2.3 Medications Medications Current Medications Ondansetron HCl (Zofran Inj) 4 mg Q6H PRN IV NAUSEA AND/OR VOMITING; Start 02/14 at 16:00 Pantoprazole (Protonix Iv) 40 mg DAILY@06 IV Last administered on 03/10/17 06: 02; Admin Dose 40 MG; Start 02/15/17 at 06:00 Acetaminophen (Tylenol Supp) 650 mg Q4H PRN [place] TEMP > 37C; Start 02/14/17 at 18: 00 Acetaminophen 650 mg 650 mg Q4H PRN PO TEMP > 37C Last administered on 05:27; Admin Dose 650 MG; Start 02/14/17 at 18:00 Norepinephrine 16 mg/Dextrose 500 ml @ 0 mls/hr TITRATE IV Last administered on 03/08/17 03:18; Admin Dose 7.35 MLS/HR; Start 02/14/17 at 22:00 Phenylephrine HCl/ Dextrose (Fritz-Syneph/D5W) 500 ml @ 75 mls/hr TITRATE IV ; Start 02/16/17 at 03:30 Miscellaneous Information 1 ea NOTE XX ; Start 02/16/17 at 11:30 Glucose (Glutose) 15 gm Q15M PRN PO DECREASED GLUCOSE; Start 02/16/17 at 11:30 Glucose (Glutose) 22.5 gm Q15M PRN PO DECREASED GLUCOSE; Start 02/16/17 at 11:30 Dextrose (D50w Syringe) 25 ml Q15M PRN IV DECREASED GLUCOSE; Start 02/16/17 at 11:30 Dextrose (D50w Syringe) 50 ml Q15M PRN IV DECREASED GLUCOSE; Start 02/16/17 at 11:30 Glucagon (Glucagen) 1 mg Q15M PRN IM DECREASED GLUCOSE; Start 02/16/17 at 11:30 Glucose 15 gm 15 gm Q15M PRN BUCCAL DECREASED GLUCOSE; Start 02/16/17 at 11:30 Vasopressin/ Dextrose (Vasostrict/D5W) 60 ml @ 1.8 mls/hr Q12H IV ; Start at 13:00 Aspirin (Aspirin) 81 mg DAILY GTB Last administered on 03/10/17 08:04; Admin Dose 81 MG; Start 02/18/17 at 09:00 Atorvastatin Calcium (Lipitor) 20 mg HS NGT Last administered on 03/09/17 21: 05; Admin Dose 20 MG; Start 02/17/17 at 21:00 IV Flush (NS 10 ml) 10 ml PRN PRN IV IV PROTOCOL; Start 02/20/17 at 16:00 Lorazepam (Ativan) 1 mg Q6H PRN IV AGITATION/ANXIETY Last administered on 01:09; Admin Dose 1 MG; Start 02/20/17 at 21:40 Morphine Sulfate 4 mg 4 mg Q2 PRN IV Severe Pain Last administered on 07:50; Admin Dose 4 MG; Start 02/26/17 at 21:30 Cefepime HCl 50 ml @ 100 mls/hr Q12 IVPB Last administered on 03/10/17 08:03 ; Admin Dose 100 MLS/HR; Start 03/02/17 at 11:00 Propofol (Diprivan) 100 ml @ 2.46 mls/hr Q12H IV Last administered on 03:57; Admin Dose 9.84 MLS/HR; Start 03/02/17 at 12:00 Ferrous Sulfate (Feosol Liquid Cup) 300 mg BID NGT Last administered on 08:04; Admin Dose 300 MG; Start 03/03/17 at 21:00 Insulin Aspart NOVOLOG *MILD* ALGORI... Q12 SC ; Start 03/08/17 at 21:00 Albumin Human (Albumin Human 25%) 100 ml @ 100 mls/hr Q8H IV Last administered on 03/10/17 07:51; Admin Dose 100 MLS/HR; Start 03/10/17 at 07:30 ; Stop 03/11/17 at 00:29 SPARKLE RAE Mar 10, 2017 10:13
--- NOTE | 2017-03-10 13:55 | PN ---
Date/Time of Note Date/Time of Note DATE: 03/10/17 TIME: 13:47 Assessment/Plan VTE Prophylaxis VTE Prophylaxis Intervention: SCD's Lines/Catheters IV Catheter Type (from [facility]): Urinary Cath still in place: No Assessment/Plan Chief Complaint/Hosp Course Assessment and plan 1. Status post cardiac arrest secondary to ventricular fibrillation. Patient did receive CPR and ACLS per protocol and is status post hypothermia protocol. Of Continue optimization of cardiovascular medications 2. Ventilator dependent respiratory failure secondary to cardiac arrest. Patient was extubated and then reintubated on March 02, 2017 due to worsening respiratory status. Vent liberation per [employer]. Patient has been unsuccessful with a vent liberation so far 3. Left-sided rib fractures and barotrauma with pneumothorax secondary to repeated chest compressions from CPR. Stable at present. Patient status post chest tube placement. 4. Sepsis with multifocal pneumonia. Secondary to coagulase-negative Staphylococcus bacteremia. Continue on antibiotics. 5. Acute on chronic kidney disease. Medications to be renally dosed. Monitor renal panel. 6. Ischemic cardiopathy with EF of 20%. Continue optimization of cardiovascular medications 7. Iron deficiency anemia. Continue iron supplement Disposition plan: Plan for bioethics/family meeting today for follow-up on goals of care for the patient. Will follow up. Continue supportive measures for now Discussed plan of care with Dr. Bhat Problems: Subjective 24 Hr Interval Summary Free Text/Dictation remains intubated. on sedation. off pressors at this time. Exam/Review of Systems Vital Signs Vitals Vital Signs Date Time Temp Pulse Resp B/P Pulse Ox O2 Delivery O2 Flow Rate FiO2 03/10/17 12:00 73 03/10/17 11:00 32 100 30 03/10/17 09:15 102/62 Mechanical Ventilator 03/10/17 08:00 99.4 Intake and Output 03/09/17 03/09/17 03/10/17 14:59 22:59 06:59 Intake Total 910.93 ml 1009.72 ml 1023.05 ml Output Total 677 ml 754 ml 395 ml Balance 233.93 ml 255.72 ml 628.05 ml Exam Constitutional: other (intubated and seated ) Head: normocephalic Respiratory: diminished breath sounds Cardiovascular: other (Regular rate) Gastrointestinal: other (OG tube in place) Neurological: other (Intubated and sedated) Results Result Diagram: 03/10/17 0400 03/10/17 0400 Results 24 hrs Laboratory Tests Test 03/09/17 21:07 03/10/17 04:00 03/10/17 08:03 Bedside Glucose 111 121 White Blood Count 8.8 Red Blood Count 2.56 L Hemoglobin 8.1 L Hematocrit 25.0 L Mean Corpuscular Volume 97.7 Mean Corpuscular Hemoglobin 31.6 Mean Corpuscular Hemoglobin Concent 32.4 Red Cell Distribution Width 15.2 H Platelet Count 208 Mean Platelet Volume 10.8 H Neutrophils % 70.6 Lymphocytes % 13.7 L Monocytes % 10.9 Eosinophils % 2.8 Basophils % 0.5 Nucleated Red Blood Cells % 0.0 Neutrophils # 6.2 Lymphocytes # 1.2 Monocytes # 1.0 H Eosinophils # 0.3 Basophils # 0.0 Nucleated Red Blood Cells # 0.0 Sodium Level 144 Potassium Level 4.3 Chloride Level 101 Carbon Dioxide Level 27 Anion Gap 20 H Blood Urea Nitrogen 40 H Creatinine 1.42 H Glucose Level 107 Calcium Level 9.2 Phosphorus Level 2.9 Magnesium Level 2.3 Medications Medications Current Medications Ondansetron HCl (Zofran Inj) 4 mg Q6H PRN IV NAUSEA AND/OR VOMITING; Start 02/14 at 16:00 Pantoprazole (Protonix Iv) 40 mg DAILY@06 IV Last administered on 03/10/17 06: 02; Admin Dose 40 MG; Start 02/15/17 at 06:00 Acetaminophen (Tylenol Supp) 650 mg Q4H PRN [place] TEMP > 37C; Start 02/14/17 at 18: 00 Acetaminophen 650 mg 650 mg Q4H PRN PO TEMP > 37C Last administered on 05:27; Admin Dose 650 MG; Start 02/14/17 at 18:00 Norepinephrine 16 mg/Dextrose 500 ml @ 0 mls/hr TITRATE IV Last administered on 03/08/17 03:18; Admin Dose 7.35 MLS/HR; Start 02/14/17 at 22:00 Phenylephrine HCl/ Dextrose (Fritz-Syneph/D5W) 500 ml @ 75 mls/hr TITRATE IV ; Start 02/16/17 at 03:30 Miscellaneous Information 1 ea NOTE XX ; Start 02/16/17 at 11:30 Glucose (Glutose) 15 gm Q15M PRN PO DECREASED GLUCOSE; Start 02/16/17 at 11:30 Glucose (Glutose) 22.5 gm Q15M PRN PO DECREASED GLUCOSE; Start 02/16/17 at 11:30 Dextrose (D50w Syringe) 25 ml Q15M PRN IV DECREASED GLUCOSE; Start 02/16/17 at 11:30 Dextrose (D50w Syringe) 50 ml Q15M PRN IV DECREASED GLUCOSE; Start 02/16/17 at 11:30 Glucagon (Glucagen) 1 mg Q15M PRN IM DECREASED GLUCOSE; Start 02/16/17 at 11:30 Glucose 15 gm 15 gm Q15M PRN BUCCAL DECREASED GLUCOSE; Start 02/16/17 at 11:30 Vasopressin/ Dextrose (Vasostrict/D5W) 60 ml @ 1.8 mls/hr Q12H IV ; Start at 13:00 Aspirin (Aspirin) 81 mg DAILY GTB Last administered on 03/10/17 08:04; Admin Dose 81 MG; Start 02/18/17 at 09:00 Atorvastatin Calcium (Lipitor) 20 mg HS NGT Last administered on 03/09/17 21: 05; Admin Dose 20 MG; Start 02/17/17 at 21:00 IV Flush (NS 10 ml) 10 ml PRN PRN IV IV PROTOCOL; Start 02/20/17 at 16:00 Lorazepam (Ativan) 1 mg Q6H PRN IV AGITATION/ANXIETY Last administered on 01:09; Admin Dose 1 MG; Start 02/20/17 at 21:40 Morphine Sulfate 4 mg 4 mg Q2 PRN IV Severe Pain Last administered on 07:50; Admin Dose 4 MG; Start 02/26/17 at 21:30 Cefepime HCl 50 ml @ 100 mls/hr Q12 IVPB Last administered on 03/10/17 08:03 ; Admin Dose 100 MLS/HR; Start 03/02/17 at 11:00 Propofol (Diprivan) 100 ml @ 2.46 mls/hr Q12H IV Last administered on 11:35; Admin Dose 12.3 MLS/HR; Start 03/02/17 at 12:00 Ferrous Sulfate (Feosol Liquid Cup) 300 mg BID NGT Last administered on 08:04; Admin Dose 300 MG; Start 03/03/17 at 21:00 Insulin Aspart NOVOLOG *MILD* ALGORI... Q12 SC ; Start 03/08/17 at 21:00 Albumin Human (Albumin Human 25%) 100 ml @ 100 mls/hr Q8H IV Last administered on 03/10/17 07:51; Admin Dose 100 MLS/HR; Start 03/10/17 at 07:30 ; Stop 03/11/17 at 00:29 SARAN CUNNINGHAM Mar 10, 2017 13:55
--- NOTE | 2017-03-10 14:04 | EN ---
Date/Time of Note Date/Time of Note DATE: 03/10/17 TIME: 14:00 Event Note Medicine Medicine Event Note Biomedical ethics committee consultation Biomedical ethics committee was convened today March 10, 2017 in regard to the gentleman stated. At this point in time he is in need medically of percutaneous endoscopic G-tube; and tracheostomy for failure to be weaned from ventilator status. To the diligence and hard work of our social work staff family was able to be located specifically his former partner and more importantly his biological daughter. The case was discussed at length along all members of the committee and with the patient's biological daughter. Given the totality of the status as of this point in time the likelihood of meaningful recovery is extremely low. The patient is having discomfort at this time after having an outpatient resuscitation which required rib fractures and actually with pneumothorax requiring chest tube. In addition he was not able to be successfully weaned requiring reintubation. If we are to proceed with tracheostomy and a percutaneous endoscopic G-tube is likelihood for meaningful recovery is extremely low and he will need long-term rehabilitation if not permanent placement under the setting. Given the totality of the situation with the recommendation and opinion of the committee that he should instead be transition to comfort measures only and hospice care with consideration for terminal extubation. The patient is unable to express poor self and as such given that we have located his biological daughter she was presented with the options. She specifically states that she wishes to proceed along with the recommendations of the biomedical ethics committee. It is therefore the recommendation of the biomedical ethics committee that the patient be transitioned over to hospice care with all comfort measures possible. Respectfully submitted MD KATIE Haynes,SULTANA Vivas MD Mar 10, 2017 14:04
--- NOTE | 2017-03-10 16:11 | CONS ---
Date/Time of Note Date/Time of Note DATE: 03/10/17 TIME: 16:09 Assessment/Plan Assessment/Plan Additional Assessment/Plan Cardiopulmonary arrest Septic shock Vent dependent respiratory failure, reintubated Cardiomyopathy with ejection fraction 20% Non-ST elevation [place] Acute kidney injury Acute blood loss anemia Paroxysmal atrial fibrillation -Patient status post hypothermia protocol. -Continue aspirin and statin therapy, no beta-naida secondary to bradycardia, no BERTHA inhibitor secondary to acute kidney injury. Titrate IV pressor to maintain SBP greater than 90 and or map above 60. -Patient with paroxysmal atrial fibrillation but bradycardic with amiodarone, would continue to monitor. -Diuretics as per our nephrology colleagues. -No new cardiac orders at the current time Consultation Date/Type/Reason Admit Date/Time Feb 14, 2017 at 16:02 Type of Consultation: cv Referring Provider: GUILHERME YATES 24 HR Interval Summary Free Text/Dictation Patient seen and examined, no new cardiac issues as per nursing staff Exam/Review of Systems Vital Signs Vitals Vital Signs Date Time Temp Pulse Resp B/P Pulse Ox O2 Delivery O2 Flow Rate FiO2 03/10/17 15:30 81 31 124/67 100 03/10/17 12:00 98.8 03/10/17 11:00 30 03/10/17 09:15 Mechanical Ventilator Intake and Output 03/09/17 03/09/17 03/10/17 15:00 23:00 07:00 Intake Total 912.95 ml 1006.11 ml 1031.45 ml Output Total 669 ml 743 ml 395 ml Balance 243.95 ml 263.11 ml 636.45 ml Exam Sedated and intubated, no apparent distress Head: normocephalic ENMT: intubated Respiratory: other (Coarse breath sounds bilaterally, no wheezing) Cardiovascular: other (S1-S2 heard), regular rate and rhythm Gastrointestinal: bowel sounds, non-tender, soft Extremities: edema Results Result Diagram: 03/10/17 0400 03/10/17 0400 Results 24 hrs Laboratory Tests Test 03/09/17 21:07 03/10/17 04:00 03/10/17 08:03 Bedside Glucose 111 121 White Blood Count 8.8 Red Blood Count 2.56 L Hemoglobin 8.1 L Hematocrit 25.0 L Mean Corpuscular Volume 97.7 Mean Corpuscular Hemoglobin 31.6 Mean Corpuscular Hemoglobin Concent 32.4 Red Cell Distribution Width 15.2 H Platelet Count 208 Mean Platelet Volume 10.8 H Neutrophils % 70.6 Lymphocytes % 13.7 L Monocytes % 10.9 Eosinophils % 2.8 Basophils % 0.5 Nucleated Red Blood Cells % 0.0 Neutrophils # 6.2 Lymphocytes # 1.2 Monocytes # 1.0 H Eosinophils # 0.3 Basophils # 0.0 Nucleated Red Blood Cells # 0.0 Sodium Level 144 Potassium Level 4.3 Chloride Level 101 Carbon Dioxide Level 27 Anion Gap 20 H Blood Urea Nitrogen 40 H Creatinine 1.42 H Glucose Level 107 Calcium Level 9.2 Phosphorus Level 2.9 Magnesium Level 2.3 Medications Medications Current Medications Ondansetron HCl (Zofran Inj) 4 mg Q6H PRN IV NAUSEA AND/OR VOMITING; Start 02/14 at 16:00 Pantoprazole (Protonix Iv) 40 mg DAILY@06 IV Last administered on 03/10/17 06: 02; Admin Dose 40 MG; Start 02/15/17 at 06:00 Acetaminophen (Tylenol Supp) 650 mg Q4H PRN [place] TEMP > 37C; Start 02/14/17 at 18: 00 Acetaminophen 650 mg 650 mg Q4H PRN PO TEMP > 37C Last administered on 05:27; Admin Dose 650 MG; Start 02/14/17 at 18:00 Norepinephrine 16 mg/Dextrose 500 ml @ 0 mls/hr TITRATE IV Last administered on 03/08/17 03:18; Admin Dose 7.35 MLS/HR; Start 02/14/17 at 22:00 Phenylephrine HCl/ Dextrose (Fritz-Syneph/D5W) 500 ml @ 75 mls/hr TITRATE IV ; Start 02/16/17 at 03:30 Miscellaneous Information 1 ea NOTE XX ; Start 02/16/17 at 11:30 Glucose (Glutose) 15 gm Q15M PRN PO DECREASED GLUCOSE; Start 02/16/17 at 11:30 Glucose (Glutose) 22.5 gm Q15M PRN PO DECREASED GLUCOSE; Start 02/16/17 at 11:30 Dextrose (D50w Syringe) 25 ml Q15M PRN IV DECREASED GLUCOSE; Start 02/16/17 at 11:30 Dextrose (D50w Syringe) 50 ml Q15M PRN IV DECREASED GLUCOSE; Start 02/16/17 at 11:30 Glucagon (Glucagen) 1 mg Q15M PRN IM DECREASED GLUCOSE; Start 02/16/17 at 11:30 Glucose 15 gm 15 gm Q15M PRN BUCCAL DECREASED GLUCOSE; Start 02/16/17 at 11:30 Vasopressin/ Dextrose (Vasostrict/D5W) 60 ml @ 1.8 mls/hr Q12H IV ; Start at 13:00 Aspirin (Aspirin) 81 mg DAILY GTB Last administered on 03/10/17 08:04; Admin Dose 81 MG; Start 02/18/17 at 09:00 Atorvastatin Calcium (Lipitor) 20 mg HS NGT Last administered on 03/09/17 21: 05; Admin Dose 20 MG; Start 02/17/17 at 21:00 IV Flush (NS 10 ml) 10 ml PRN PRN IV IV PROTOCOL; Start 02/20/17 at 16:00 Lorazepam (Ativan) 1 mg Q6H PRN IV AGITATION/ANXIETY Last administered on 01:09; Admin Dose 1 MG; Start 02/20/17 at 21:40 Morphine Sulfate 4 mg 4 mg Q2 PRN IV Severe Pain Last administered on 07:50; Admin Dose 4 MG; Start 02/26/17 at 21:30 Cefepime HCl 50 ml @ 100 mls/hr Q12 IVPB Last administered on 03/10/17 08:03 ; Admin Dose 100 MLS/HR; Start 03/02/17 at 11:00 Propofol (Diprivan) 100 ml @ 2.46 mls/hr Q12H IV Last administered on 11:35; Admin Dose 12.3 MLS/HR; Start 03/02/17 at 12:00 Ferrous Sulfate (Feosol Liquid Cup) 300 mg BID NGT Last administered on 08:04; Admin Dose 300 MG; Start 03/03/17 at 21:00 Insulin Aspart NOVOLOG *MILD* ALGORI... Q12 SC ; Start 03/08/17 at 21:00 Albumin Human (Albumin Human 25%) 100 ml @ 100 mls/hr Q8H IV Last administered on 03/10/17 16:06; Admin Dose 100 MLS/HR; Start 03/10/17 at 07:30 ; Stop 03/11/17 at 00:29 Casey Schuler DO Mar 10, 2017 16:11
[2017-03-10] MEDS ORDERED: morphine (DRIP) 100 MG/100 ML 100 ML IV SCH (17:00)
[2017-03-10] MEDS ORDERED: LORAZEPAM (MDV) 100 MG in DEXTROSE 5% 50 ML IV SCH (18:30)
[2017-03-11 00:02] VITALS: BP 96/61; RESP 14
[2017-03-11 02:38] VITALS: BP 81/53; RESP 14
--- NOTE | 2017-03-12 18:09 | DES ---
Date/Time of Note Date/Time of Note DATE: 03/12/17 TIME: 18:04 Discharge/ Summary Admission/Discharge Info Admit Date/Time Feb 14, 2017 at 16:02 Discharge Date/Time Mar 11, 2017 at 04:50 Final Diagnosis 1. Status post cardiac arrest secondary to ventricular fibrillation Preliminary Cause of 1. Status post cardiac arrest secondary to ventricular fibrillation. 2. Ventilator dependent respiratory failure secondary to cardiac arrest. 3. Left-sided rib fractures and barotrauma with pneumothorax secondary to repeated chest compressions from CPR 4. Sepsis with shock with multifocal pneumonia. 5. Acute on chronic kidney disease. 6. Ischemic cardiopathy with EF of 20%. Hospital Course This is a 76-year-old male reportedly homeless with a history of hypertension and dyslipidemia was brought to [facility] after being found by paramedics on the ground next to a park bench. Patient was reportedly unresponsive and was in PEA but on arrival was found to be in ventricular fibrillation. Patient did have ACLS that was performed and did have return of spontaneous circulation after several attempts and defibrillation. Patient also did have a pneumothorax and did have chest tube placed. He was intubated in the ER. Initially hypothermia protocol was initiated and on-call night manager to see the patient. After evaluation by manager medical writing patient was not a candidate for emergent cardiac catheterization. Patient did have multidisciplinary consultation and care. He was seen by z os mainframe systems programmer for vent management. Patient did have echocardiogram done with echocardiogram showing him to have severe systolic dysfunction with ejection fraction visualized at 20 percent with stage II diastolic dysfunction. Senior Accounting Clerk did follow for ventilator management and for monitoring of respiratory status. He did have left-sided rib fractures seen on chest imaging and resultant pneumothorax secondary to repeated chest compressions and did have a chest tube placed by cardiothoracic surgeon, which during his course of stay was eventually removed. He was also seen with a septic picture with multifocal pneumonia and coagulase-negative Staphylococcus bacteremia. Infectious disease pre sales technical consultant was obtained and he was placed on appropriate antibiotics. He did have septic picture and was placed on pressors as well for hemodynamics maintenance. Patient did have lengthy stay due to his comorbidities and illness. During his stay he also had some renal insufficiency and was seen by pot pusher for management of his renal issue. We did attempt extubation however he failed after being extubated and was reintubated on March 02, 2017. Patient additionally had EEG done that was abnormal and showed generalized slowing consistent with underlying encephalopathy. Patient did have bioethics consultation on March 06, 2017 due to patient's condition and we did have discussion for goals of care and due to inability to find patient family member. We were able to find patient's daughter on March 10, 2017 and there was discussion whether patient should have tracheostomy or PEG tube placement. Palliative care physician was also involved in management of this patient. Repeat bioethics meeting was done again on March 10, 2017 with family member present. After discussion family and discussion in collaboration with care team it was decided for patient for terminal extubation to be placed on comfort measures. Patient was terminally extubated on February 10, 2017. At 4:50 AM on March 11, 2017 patient was pronounced . Patient was reported with no respiration or pulse or nor recordable blood pressure. Call was made out the family concerning patient. Case was discussed with SARAN Bruce Mar 12, 2017 18:09
== END 2017-03-11 04:50 | disposition expired | DRG 870 ==
LOC: E/R 11:44 → ICU 16:02 → PP2 03-10 23:15 → UNDODISIN 03-11 04:50
PROVIDERS: ADMIT Internal Medicine; ATTEND Internal Medicine
PROC: 0BH17EZ Insertion of Endotracheal Airway into Trachea, Via Natural or Artificial Opening (ICD-10-PCS; principal; 2017-02-14)
PROC: 5A1955Z Respiratory Ventilation, Greater than 96 Consecutive Hours (ICD-10-PCS; 2017-02-14)
PROC: 5A12012 Performance of Cardiac Output, Single, Manual (ICD-10-PCS; 2017-02-14)
PROC: 6A4Z0ZZ Hypothermia, Single (ICD-10-PCS; 2017-02-14)
PROC: 30233N1 Transfusion of Nonautologous Red Blood Cells into Peripheral Vein, Percutaneous Approach (ICD-10-PCS; 2017-02-20)
PROC: 02HV33Z Insertion of Infusion Device into Superior Vena Cava, Percutaneous Approach (ICD-10-PCS; 2017-02-20)
PROC: B548ZZA Ultrasonography of Superior Vena Cava, Guidance (ICD-10-PCS; 2017-02-20)
PROC: 30233N1 Transfusion of Nonautologous Red Blood Cells into Peripheral Vein, Percutaneous Approach (ICD-10-PCS; 2017-02-22)
PROC: 6A550Z2 Pheresis of Platelets, Single (ICD-10-PCS; 2017-02-22)
PROC: 0BH17EZ Insertion of Endotracheal Airway into Trachea, Via Natural or Artificial Opening (ICD-10-PCS; 2017-03-02)
PROC: 5A1955Z Respiratory Ventilation, Greater than 96 Consecutive Hours (ICD-10-PCS; 2017-03-02)
DX: A41.9 Sepsis, unspecified organism (principal); I49.01 Ventricular fibrillation; N17.0 Acute kidney failure with tubular necrosis; I21.4 Non-ST elevation (NSTEMI) myocardial infarction; J96.20 Acute and chronic respiratory failure, unspecified whether with hypoxia or hypercapnia; R65.21 Severe sepsis with septic shock; G92 Toxic encephalopathy; J69.0 Pneumonitis due to inhalation of food and vomit; S27.0XXA Traumatic pneumothorax, initial encounter; S22.32XA Fracture of one rib, left side, initial encounter for closed fracture; E87.2 Acidosis; E87.1 Hypo-osmolality and hyponatremia; D61.818 Other pancytopenia; Z99.11 Dependence on respirator [ventilator] status; E87.3 Alkalosis; D62 Acute posthemorrhagic anemia; E87.0 Hyperosmolality and hypernatremia; I25.5 Ischemic cardiomyopathy; E86.0 Dehydration; E87.6 Hypokalemia; D69.59 Other secondary thrombocytopenia; E78.5 Hyperlipidemia, unspecified; I44.0 Atrioventricular block, first degree; D50.9 Iron deficiency anemia, unspecified; I48.0 Paroxysmal atrial fibrillation; I12.9 Hypertensive chronic kidney disease with stage 1 through stage 4 chronic kidney disease, or unspecified chronic kidney disease; E11.22 Type 2 diabetes mellitus with diabetic chronic kidney disease; N18.9 Chronic kidney disease, unspecified; R13.10 Dysphagia, unspecified; Z66 Do not resuscitate; X58.XXXA Exposure to other specified factors, initial encounter; Y92.238 Other place in hospital as the place of occurrence of the external cause; Y93.89 Activity, other specified; Z59.0 Homelessness; Z79.4 Long term (current) use of insulin; Z79.82 Long term (current) use of aspirin
CPT/HCPCS: 31500; 36415; 36430; 36569; 36600; 70450; 71010; 71250; 73510; 74000; 76775; 76937; 80048; 80053; 80202; 81001; 81003; 82043; 82150; 82270; 82550; 82553; 82728; 82803; 82947; 82962; 83036; 83540; 83605; 83690; 83735; 84100; 84132; 84155; 84300; 84436; 84479; 84484; 85014; 85018; 85025; 85049; 85610; 85670; 85730; 86703; 86850; 86900; 86901; 86920; 87040; 87070; 87081; 87086; 89220; 92526; 92610; 93005; 93306; 94002; 94003; 94640; 94660; 94664; 94770; 95819; 96374; 96375; G0378; C9113; J0171; J0282; J0456; J0610; J0692; J1630; J1815; J1940; J2060; J2270; J2310; J2370; J2543; J2916; J3010; J3370; J3475; J3480; J7030; J7040; J7042; J7050; J7060; J7070; P9016; P9035; P9047